=== PATIENT | female | born 1985 | race Caucasian/White ===

== ENCOUNTER → 2019-02-14 15:28 | Outpatient (CLI) | payer OTHER, SELFPAY ==
[2019-02-14 16:48] LABS: Homocysteine 7.6 umol/L (3.2-10.7)
[2019-02-17 17:14] LABS: ANTINUCLEAR ANTIBODIES DIRECT Negative (Negative)
[2019-02-24 18:45] LABS: Dilute Prothrombin Time (dPT) 52.2 sec (0.0-55.0); PTT-LA 57.7 sec (0.0-51.9); PTT-LA Incub Mix 43.2 sec (0.0-48.9); PTT-LA Mix 36.5 sec (0.0-48.9); Protein C Antigen 91 % (60-150); Protein C, Functional 127 % (73-180); Thrombin Time 20.3 sec (0.0-23.0); dPT Confirm Ratio 1.28 Ratio (0.00-1.40)
[2019-02-25 16:27] LABS: Antithrombin 3 Function 83 % (75-135); Beta-2-Glycoprotein I IgA <9 (0-25); Beta-2-Glycoprotein I IgG <9 (0-20); Beta-2-Glycoprotein I IgM <9 (0-32); Protein S, Free 79 % (57-157); Protein S, Funtional 108 % (63-140); Protein S, Total 96 % (60-150)
== END ==
DX: I26.99 Other pulmonary embolism without acute cor pulmonale (principal)
CPT/HCPCS: 36415; 81291; 83090; 85300; 85302; 85303; 85305; 85306; 86038; 86140; 86146

== ENCOUNTER 2019-06-01 09:48 | Emergency (ER) | payer OTHER, SELFPAY ==
[2019-03-18 14:11] VITALS: BMI 36.8
[2019-06-01 09:49] VITALS: BP 161/94; PULSE 75; RESP 18; TEMP 36.6; O2SAT 98; BMI 37.7
[2019-06-01 09:53] VITALS: TEMP 36.6
--- NOTE | 2019-06-01 10:23 | ED.DCSUM_ITS ---
History of Present Illness Chief Complaint: Abscess Informant: Patient Onset: Days Current Severity: Mild Narrative: Patient presents with an abscess involving the left buttock area that rubbing against her right buttock she is had it for a few days, she was seen by her primary care office the other day Sunday and placed on amoxicillin she was told that if did not improve she should just go to emergency room and have it taken care of, she is on Xarelto related to prior PEs she took her Xarelto dose today she has no other complaints, she has no history of MRSA skin infections no fever cough chest pain or abdominal pain her other health history is been unremarkable and she has no complaints other than the tender area as above Past Medical History - Allergies and Home Meds Allergies/Adverse Reactions: Allergies No Known Allergies Allergy (Verified 06/01/19 09:52) Primary Care Physician: Gypsy Marsh,Out of [Primary Care Provider] - Past Medical History: - - Viral pulmonary embolism currently on Xarelto no history of MRSA skin infection or diabetes Smoking Status: Never smoker Review of Systems General: Reports: - - Left buttock area only. Denies: Chills, Fever, Sweats Eyes: Denies: Visual changes - bilaterally, Diplopia ENT: Denies: Rhinorrhea, Sore throat Cardiovascular: Denies: Chest pain, Palpitations Respiratory: Denies: Dyspnea, Cough, Dyspnea on exertion Gastrointestinal: Denies: Abdominal pain, Nausea, Vomiting, Diarrhea, Melena, Hematochezia Genitourinary: Denies: Dysuria, Hematuria, Frequency Musculoskeletal: Denies: Back pain, Extremity Pain Skin: Denies: Rash, Wounds Neurological: Denies: Headache, Weakness, Numbness Physical Exam Vital Signs/Narrative: Vital Signs Temp Pulse Resp BP Pulse Ox 06/01/19 09:53 98 F 06/01/19 09:49 98 F 75 18 161/94 H 98 General: Well nourished, Well developed, No Acute Distress Head: Normocephalic, Atraumatic Eyes: Perrl, EOMI ENT: Moist mucous membranes, No rhinorrhea Neck: Supple, Nontender Cardiovascular: Regular rate, Regular rhythm, No murmurs Respiratory: No distress, CTA bilaterally, Chest nontender Abdomen: Soft, Nontender, Nondistended, Normal bowel sounds Back: Nontender, Normal Inspection Extremities: Nontender, No edema Skin: Normal color, No rash, - - Is an area to the left buttock area examined with nurse cashier courtesy booth is about 1 cm circular it is slightly tender there is no crepitance or warmth it certainly could represent an early abscess, it is clearly rubbing against the right buttock with an element of friction the perineum is otherwise unremarkable without no signs of deep-seated infection crepitance subcu air she has full range of motion of her extremities and the distal lower extremity exams are unremarkable Neurological: Alert, Oriented x3, Cranial nerves II-XII grossly intact, Normal Strength, Normal Sensation Psychological: Normal affect, Normal Mood Diagnostic/Tx/Re-eval - Medical Decision Making I had a long conversation with the patient I explained to her current Xarelto use, and she did take a dose today, would increase her risk of complications such as severe significant bleeding and it would be safer and best to have her hold the Xarelto for a day or 2 and then have this done as an outpatient and not through the emergency department, I spoke with Dr. Salazar to surgery on-call, the plan is to have her hold her Xarelto she will be seen in the office on Sunday we will have her continue the amoxicillin add Bactrim and she will be further assessed for possible I&D when she seen on Sunday in the office patient understands and agrees and will return for change in symptoms Home stable Left buttock abscess, history of PE currently on Xarelto ED Disposition - Plan for ED Patient: Diagnosis: Abscess Instructions: ABSCESS, Antiobiotic Treatment Only Prescriptions: Smz/Tmp Ds [Bactrim Ds] 1 tab PO BID #14 tab Prescription Printed Referrals: [facility] Doctor,Out of [Primary Care Provider] - Vinicio Dobbins MD [STAFF PHYSICIAN] - Additional Instructions: Hold your Xarelto until seen by surgery on Sunday, Call the surgeon's office Sunday to be seen Sunday for possible drainage of abscess return for change in symptoms
[2019-06-01 10:25] VITALS: BP 142/91; PULSE 70; RESP 18; O2SAT 98
== END 2019-06-01 10:38 | disposition home or self-care (01) ==
PROVIDERS: Emergency Provider Emergency Medicine
DX: L02.31 Cutaneous abscess of buttock (principal); Z86.711 Personal history of pulmonary embolism; Z79.01 Long term (current) use of anticoagulants
CPT/HCPCS: 99282

== ENCOUNTER → 2019-06-02 17:07 | Outpatient (CLI) | payer OTHER, SELFPAY ==
[2019-06-02 16:18] VITALS: BMI 37.7
== END ==
PROVIDERS: Referring Provider Surgery; Visit Provider Surgery
DX: K61.0 Anal abscess (principal)
CPT/HCPCS: 87070; 87205

== ENCOUNTER → 2019-08-12 15:51 | Outpatient (CLI) | payer OTHER, SELFPAY ==
[2019-06-02 16:18] VITALS: BMI 37.7
--- NOTE | 2019-08-12 15:54 | CT_ITS ---
STUDY: CTA CHEST REASON FOR EXAM: Female, 34 years old. History of pulmonary embolus in the past. Genetic mutation. RADIATION DOSAGE (If Supplied By Facility): CTDIvol = ( 9.65 ) mGy, DLP = ( 473.12 ) mGycm TECHNIQUE: The examination was performed with the intravenous administration of 100ML ISOVUE 370. Post-processing of the angiographic images was performed, with multiplanar reformation and 3D reconstruction. Individualized dose optimization techniques were used for this CT. COMPARISON: None. FINDINGS: Normal enhancement of the main pulmonary artery and right and left pulmonary arteries. Normal enhancement of the bilateral peripheral pulmonary arteries. There is no demonstrated pulmonary embolism. Normal thoracic aorta and visualized great vessels. There is no demonstrated aortic dissection. Normal heart and pericardium. Normal mediastinum. Normal hilar regions. Normal visualized trachea and bronchi. The lungs are well expanded. Normal pulmonary parenchyma. Normal pleura. Normal chest wall structures. Normal osseous structures. Surgical clips in the gallbladder fossa. CT/CTA Chest W/WO Contrast IMPRESSION: Normal CTA chest examination, without a demonstrated pulmonary embolism or arterial dissection. Electronically Signed: Ramses Morales MD at 4:46 EST , Service support ,
== END ==
DX: I26.99 Other pulmonary embolism without acute cor pulmonale (principal)
CPT/HCPCS: 71275; Q9967

== ENCOUNTER → 2019-10-27 15:24 | Outpatient (CLI) | payer OTHER, SELFPAY ==
[2019-06-02 16:18] VITALS: BMI 37.7
[2019-10-27 17:59] LABS: hCG Titer Quant., Serum 16406 mIU/mL (1-3)
== END ==
PROVIDERS: PCP Family Medicine
DX: N91.2 Amenorrhea, unspecified (principal)
CPT/HCPCS: 36415; 84702

== ENCOUNTER → 2019-10-28 16:35 | Outpatient (CLI) | payer OTHER, SELFPAY ==
[2019-06-02 16:18] VITALS: BMI 37.7
--- NOTE | 2019-10-28 16:37 | US_ITS ---
STUDY: FIRST TRIMESTER OBSTETRICAL ULTRASOUND REASON FOR EXAM: Female, 34 years old LIGHT BLEEDING HX MISCARRIAGE LMP: September 07, 2019 TECHNIQUE: Transvaginal TECHNICAL QUALITY: Adequate. PRIOR ULTRASOUND: None. FINDINGS: There is visualization of a single gestational sac in a normal intrauterine position. The mean sac diameter (MSD) measures 1.72 cm, indicating an estimated gestational age (EGA) of 6 weeks, 4 days. The gestational sac shape is within normal limits. There is a visualized yolk sac. The yolk sac measures 0.28 cm. The placenta is non-visualized. There is visualization of a live embryo. The crown-rump length (CRL) measures 0.67 cm, indicating an estimated gestational age (EGA) of 6 weeks, 4 days. There is demonstrated cardiac activity with a heart rate of 134 bpm. The estimated gestation age (EGA) by LMP is 7 weeks, 2 days. The estimated date of delivery (SKYLA) by LMP is June 13, 2020. The estimated gestation age (EGA) by US is 6 weeks, 4 days. The estimated date of delivery (SKYLA) by US is June 18, 2020. The uterus measures 8 cm x 5.9 cm x 4.4 cm. There is no demonstrated uterine fibroid. The cervix is closed. There is evidence of a 1.1 cm x 0.5 cm x 0.4 cm subchorionic bleed. The right ovary measures 2.4 cm x 1.7 cm by 1.1 cm. There is no right ovarian cyst. There is no visualized right adnexal mass or complex lesion. The left ovary measures 2.2 cm x 2 cm x 1.9 cm. There is a 1.9 cm x 1.5 cm x 1.6 cm follicle. There is no visualized left adnexal mass or complex lesion. There is no fluid in the cul de sac. US/Init OB < 14Wks US IMPRESSION: Single live intrauterine gestation with a mean gestational age of 6 weeks and 4 days. Small subchorionic bleed. Small left ovarian follicle. Electronically Signed: Ian Cox, at 15:10 EST , Service support ,
== END ==
PROVIDERS: PCP Family Medicine; Referring Provider Obstetrics & Gynecology; Visit Provider Obstetrics & Gynecology
DX: O46.90 Antepartum hemorrhage, unspecified, unspecified trimester (principal); Z3A.00 Weeks of gestation of pregnancy not specified
CPT/HCPCS: 76801

== ENCOUNTER → 2019-11-03 16:48 | Outpatient (CLI) | payer OTHER, SELFPAY ==
[2019-06-02 16:18] VITALS: BMI 37.7
[2019-11-03 17:15] LABS: Absolute Lymphocyte Count 3.68 X10^3/uL (0.83-4.51); Basophil# 0.07 X10^3/uL; Basophil% 0.4 % (0-1); Eosinophil# 0.06 X10^3/uL; Eosinophils% 0.4 % (0-5); Hematocrit 37.4 % (37-47); Hemoglobin 12.2 g/dL (12.0-15.0); Lymphocyte # 3.68 X10^3/ul (4.0); Lymphocyte % 23.6 % (19-41); Mean Corp Hgb Conc 32.6 g/dL (32-36); Mean Corpuscular Hgb 29.5 pg (27.0-32.0); Mean Corpuscular Volume 90.3 fL (81-99); Mean Platelet Vol. 8.8 fl (6.2-12.0); Monocyte# 0.72 X10^3/uL; Monocyte% 4.6 % (0-10); NRBC Flagged by Analyzer 0 % (0-5); Neutrophil # 10.98 X10^3/uL (2.7-7.7); Neutrophil % 70.4 % (47-70); Platelet Count 359 K/mm3 (150-450); RBC Distribution Width CV 12.2 % (11.6-14.6); RBC Distribution Width SD 39.8 fl (35.1-43.9); Red Blood Count 4.14 M/mm3 (4.2-5.4); White Blood Count 15.6 K/mm3 (4.4-11.0)
[2019-11-03 17:57] LABS: ALB/GLOB Ratio 1.1 RATIO (0.9-2.4); AST(SGOT) 12 U/L (15-37); Alanine Aminotransfer ALT/SGPT 17 U/L (13-56); Albumin, Serum 3.8 g/dL (3.2-5.0); Alkaline Phosphatase 64 U/L (45-117); Anion Gap 8 (5-15); BUN 9 mg/dL (7-18); BUN/Creat Ratio 12.9 RATIO (10-20); Calcium,Total 8.7 mg/dL (8.5-10.1); Chloride 105 mmol/L (98-107); Cholesterol 184 mg/dL (200); EST Glomerular Filtration Rate 103 mL/min (>60); Est Glom Filt Rate - Afr Amer 125 mL/min (>60); Globulin 3.6 g/dL (2.2-4.2); Glucose 77 mg/dL (74-106); High Density Lipoprotein 51 mg/dL; Potassium 3.5 mmol/L (3.5-5.1); Protein, Total 7.4 g/dL (6.4-8.2); Sodium Level 138 mmol/L (136-145); Thyroid Stim Hormone (TSH) 1.67 uIU/mL (0.358-3.74); Triglycerides 129 mg/dL; Very Low Density Lipoprotein 26 mg/dL (5-40)
== END ==
PROVIDERS: PCP Family Medicine; Referring Provider Family Medicine; Visit Provider Family Medicine
DX: Z00.00 Encounter for general adult medical examination without abnormal findings (principal)
CPT/HCPCS: 36415; 80053; 80061; 84443; 85025

== ENCOUNTER → 2019-11-06 15:37 | Outpatient (CLI) | payer OTHER, SELFPAY ==
[2019-11-06 11:59] VITALS: BMI 37.7
[2019-11-06 16:07] LABS: Protein:Creat Ratio 61 mg/g CRE (0-200)
[2019-11-06 16:15] LABS: Amphetamine Urine VISTA NEGATIVE (<1000 ng/mL); Barbiturate Urine VISTA NEGATIVE (< 200 ng/mL); Benzodiazepine Urine VISTA NEGATIVE (< 200 ng/mL); Cocaine Urine VISTA NEGATIVE (< 300 ng/mL); Ecstacy Urine VISTA NEGATIVE (< 500 ng/mL); Methadone Urine VISTA NEGATIVE (< 300 ng/mL); PCP Urine VISTA NEGATIVE (< 25 ng/mL); THC Urine VISTA NEGATIVE (< 50 ng/mL); Vista UDS pH Range 6
[2019-11-06 17:46] LABS: Chlamydia Trachomatis by PCR Negative (Negative); Neisserai gonorrhoeae by PCR Negative (Negative); Probe Check PASS; Sample Adequacy Control PASS; Specimen Processing Control PASS
[2019-11-11 11:57] LABS: HPV APTIMA, High Risk Negative (Negative)
== END ==
PROVIDERS: Obstetrics & Gynecology; PCP Family Medicine; Referring Provider Nurse Practitioner Women's Health; Visit Provider Nurse Practitioner Women's Health
DX: Z12.4 Encounter for screening for malignant neoplasm of cervix (principal); O09.90 Supervision of high risk pregnancy, unspecified, unspecified trimester; O99.210 Obesity complicating pregnancy, unspecified trimester; O09.299 Supervision of pregnancy with other poor reproductive or obstetric history, unspecified trimester; Z3A.00 Weeks of gestation of pregnancy not specified
CPT/HCPCS: 80307; 82570; 84156; 87086; 87088; 87491; 87591; 87624; 88175; G0145

== ENCOUNTER → 2019-11-10 08:09 | Outpatient (CLI) | payer OTHER, SELFPAY ==
[2019-11-06 11:59] VITALS: BMI 37.7
[2019-11-10 08:29] LABS: Absolute Neutrophil Count 8.3 X10^3/uL (2.0-7.7); Basophil# 0.07 X10^3/uL; Basophil% 0.6 % (0-1); Eosinophils% 0.8 % (0-5); Hematocrit 38.4 % (37-47); Hemoglobin 12.6 g/dL (12.0-15.0); Lymphocyte % 25.4 % (19-41); Mean Corp Hgb Conc 32.8 g/dL (32-36); Mean Corpuscular Hgb 29.6 pg (27.0-32.0); Mean Corpuscular Volume 90.1 fL (81-99); Mean Platelet Vol. 8.9 fl (6.2-12.0); Monocyte# 0.61 X10^3/uL; NRBC Flagged by Analyzer 0 % (0-5); Neutrophil % 67.9 % (47-70); Platelet Count 344 K/mm3 (150-450); RBC Distribution Width CV 12.3 % (11.6-14.6); RBC Distribution Width SD 40.3 fl (35.1-43.9); Red Blood Count 4.26 M/mm3 (4.2-5.4); White Blood Count 12.2 K/mm3 (4.4-11.0)
== END ==
PROVIDERS: PCP Family Medicine; Referring Provider Family Medicine; Visit Provider Family Medicine
DX: D72.829 Elevated white blood cell count, unspecified (principal)
CPT/HCPCS: 36415; 85025

== ENCOUNTER → 2019-11-17 10:30 | Outpatient (CLI) | payer OTHER, SELFPAY ==
[2019-11-06 11:59] VITALS: BMI 37.7
[2019-11-17 11:12] LABS: Absolute Lymphocyte Count 2.81 X10^3/uL (0.83-4.51); Absolute Neutrophil Count 8.7 X10^3/uL (2.0-7.7); Basophil# 0.05 X10^3/uL; Basophil% 0.4 % (0-1); Eosinophil# 0.12 X10^3/uL; Hemoglobin 12.7 g/dL (12.0-15.0); Lymphocyte # 2.81 X10^3/ul (4.0); Lymphocyte % 22.6 % (19-41); Mean Corp Hgb Conc 32.6 g/dL (32-36); Mean Corpuscular Hgb 29.7 pg (27.0-32.0); Mean Corpuscular Volume 91.1 fL (81-99); Mean Platelet Vol. 9.1 fl (6.2-12.0); Monocyte# 0.63 X10^3/uL; Monocyte% 5.1 % (0-10); NRBC Flagged by Analyzer 0 % (0-5); Neutrophil # 8.74 X10^3/uL (2.7-7.7); Neutrophil % 70.4 % (47-70); Platelet Count 316 K/mm3 (150-450); RBC Distribution Width CV 12.1 % (11.6-14.6); RBC Distribution Width SD 39.9 fl (35.1-43.9); Red Blood Count 4.28 M/mm3 (4.2-5.4); White Blood Count 12.4 K/mm3 (4.4-11.0)
[2019-11-17 11:33] LABS: ALB/GLOB Ratio 0.9 RATIO (0.9-2.4); AST(SGOT) 7 U/L (15-37); Alanine Aminotransfer ALT/SGPT 15 U/L (13-56); Albumin, Serum 3.4 g/dL (3.2-5.0); Alkaline Phosphatase 62 U/L (45-117); Anion Gap 8 (5-15); BUN 6 mg/dL (7-18); BUN/Creat Ratio 9.3 RATIO (10-20); Calcium,Total 8.5 mg/dL (8.5-10.1); Chloride 106 mmol/L (98-107); Creatinine, Serum 0.65 mg/dL (0.55-1.02); EST Glomerular Filtration Rate 112 mL/min (>60); Est Glom Filt Rate - Afr Amer 136 mL/min (>60); Globulin 3.6 g/dL (2.2-4.2); Glucose 91 mg/dL (74-106); Glucose Challenge Gest 1H 50g 91 mg/dL (70-140); Potassium 3.5 mmol/L (3.5-5.1); Sodium Level 139 mmol/L (136-145)
[2019-11-17 12:36] LABS: HIV - WCH Non-Reactive (Nonreactive); Hepatitis B Surface Antigen Non-Reactive (Nonreactive); Hepatitis C Antibody Non-Reactive (Nonreactive); Rubella IgG 142.6 IU/mL
[2019-11-21 04:37] LABS: Rapid Plasmin Reagin (RPR) NONREACTIVE (NONREACTIVE)
== END ==
PROVIDERS: PCP Family Medicine; Referring Provider Obstetrics & Gynecology; Visit Provider Obstetrics & Gynecology
DX: O09.90 Supervision of high risk pregnancy, unspecified, unspecified trimester (principal); O09.299 Supervision of pregnancy with other poor reproductive or obstetric history, unspecified trimester; O23.40 Unspecified infection of urinary tract in pregnancy, unspecified trimester; O99.210 Obesity complicating pregnancy, unspecified trimester; Z3A.00 Weeks of gestation of pregnancy not specified
CPT/HCPCS: 36415; 80053; 82950; 85025; 86592; 86703; 86762; 86803; 86850; 86900; 86901; 87086; 87088; 87340

== ENCOUNTER → 2019-12-04 09:52 | Outpatient (CLI) | payer OTHER, SELFPAY ==
[2019-12-04 09:10] VITALS: BMI 37.7
== END ==
PROVIDERS: PCP Family Medicine; Referring Provider Obstetrics & Gynecology; Visit Provider Obstetrics & Gynecology
DX: Z34.81 Encounter for supervision of other normal pregnancy, first trimester (principal)
CPT/HCPCS: 36415

== ENCOUNTER → 2020-01-20 15:10 | Outpatient (CLI) | payer OTHER, SELFPAY ==
[2019-12-04 09:10] VITALS: BMI 37.7
[2019-12-29 15:57] VITALS: BMI 37.7
--- NOTE | 2020-01-20 15:10 | US_ITS ---
STUDY: SECOND AND THIRD TRIMESTER OBSTETRICAL ULTRASOUND REASON FOR EXAM: Female, 34 years old. Anatomy screening. LMP: September 07, 2019. TECHNIQUE: Transabdominal TECHNICAL QUALITY: Adequate. PRIOR ULTRASOUND: October 28, 2019. FINDINGS: There is a single intrauterine fetus. The fetus is in a variable presentation. There is demonstrated cardiac activity with a heart rate of 143 bpm. There is a normal amniotic fluid volume. The largest amniotic fluid pocket measures 5.1 cm. . The placenta is posterior in location and is not low lying. There are Grade 0 placental changes. The cervix measures 3.4 cm in length. The adnexal regions are not visualized. BIOMETRY: BPD: 4.35 cm: 19 weeks, 3 days HC: 16.37 cm: 19 weeks, 1 days AC: 14.26 cm: 19 weeks, 5 days FL: 3.03 cm: 19 weeks, 3 days CI: 77 FL/BPD: 70 FL/HC: FL/AC: 21 HC/AC: 1.15 age by current US: 19 weeks, 3 days. SKYLA by current US: June 12, 2020. Estimated weight: 293 grams, +/- 43 grams, 55 %. age by prior US: 18 weeks, 4 days. SKYLA by prior US: June 18, 2020. Age by LMP: 19 weeks, 2 days. SKYLA by LMP: June 13, 2020. ANATOMY: Gender: Female Cranium: Normal lateral ventricles. Normal choroid plexus. Normal cerebellum. Normal cisterna magna. Normal face, nose and lips. Chest: Normal 4-chamber heart. Abdomen/Pelvis: Normal diaphragm. Normal stomach. Normal abdominal wall. Normal cord insertion. Normal 3 vessel cord. Normal kidneys. Normal bladder. Spine: Normal cervical spine. Normal thoracic spine. Normal lumbar spine. Normal sacrum. Extremities: Normal bilateral upper extremities. Normal bilateral lower extremities. US/OB Anatomy Scan IMPRESSION: 1. Live single intrauterine at 19 weeks, 3 days. SKYLA is June 12, 2020. There is adequate interval growth since prior ultrasound. 2. EFW of 293 g. 3. Adequate amniotic fluid. 4. Posterior grade 0 placenta. 5. Variable presentation. 6. No visualized anatomic abnormality. Electronically Signed: Sid Valencia DO at 23:42 EDT Tel [phone], Service support ,
== END ==
PROVIDERS: PCP Family Medicine; Referring Provider Nurse Practitioner Women's Health; Visit Provider Nurse Practitioner Women's Health
DX: O09.90 Supervision of high risk pregnancy, unspecified, unspecified trimester (principal)
CPT/HCPCS: 76805

== ENCOUNTER → 2020-03-02 17:36 | Outpatient (CLI) | payer OTHER, SELFPAY ==
[2020-02-23 15:45] VITALS: BMI 37.7
== END ==
PROVIDERS: PCP Family Medicine; Referring Provider Family Medicine; Visit Provider Family Medicine
DX: R05 Cough (principal); R50.9 Fever, unspecified
CPT/HCPCS: 87635; G2023; U0003

== ENCOUNTER → 2020-03-24 08:09 | Outpatient (CLI) | payer OTHER, SELFPAY ==
[2020-02-23 15:45] VITALS: BMI 37.7
[2020-03-24 08:41] LABS: Absolute Lymphocyte Count 2.56 X10^3/uL (0.83-4.51); Absolute Neutrophil Count 11.6 X10^3/uL (2.0-7.7); Basophil# 0.05 X10^3/uL; Basophil% 0.3 % (0-1); Eosinophil# 0.12 X10^3/uL; Eosinophils% 0.8 % (0-5); Hematocrit 31.5 % (37-47); Hemoglobin 10.2 g/dL (12.0-15.0); Lymphocyte # 2.56 X10^3/ul (4.0); Lymphocyte % 16.9 % (19-41); Mean Corp Hgb Conc 32.4 g/dL (32-36); Mean Corpuscular Hgb 30.5 pg (27.0-32.0); Mean Corpuscular Volume 94.3 fL (81-99); Mean Platelet Vol. 9.8 fl (6.2-12.0); Monocyte# 0.66 X10^3/uL; Monocyte% 4.4 % (0-10); NRBC Flagged by Analyzer 0 % (0-5); Neutrophil # 11.64 X10^3/uL (2.7-7.7); Neutrophil % 76.7 % (47-70); Platelet Count 314 K/mm3 (150-450); RBC Distribution Width CV 12.9 % (11.6-14.6); RBC Distribution Width SD 43.7 fl (35.1-43.9); Red Blood Count 3.34 M/mm3 (4.2-5.4); White Blood Count 15.2 K/mm3 (4.4-11.0)
[2020-03-24 08:57] LABS: Glucose Challenge Gest 1H 50g 135 mg/dL (70-140)
--- NOTE | 2020-03-24 13:03 | VDLE_ITS ---
Reason For Study: Lt calf pain RIGHT LEFT CFV is compressible, spontaneous, phasic, GSV is normal. competent and demonstrates normal CFV is compressible, spontaneous, phasic, augmentation. competent, and demonstrates normal Procedure augmentation. Exam performed in department. FV is compressible, spontaneous, phasic, A preliminary report was called and/or faxed competent and demonstrates normal to Dr. Gonzalez. augmentation. POP V is compressible, spontaneous, phasic, competent and demonstrates normal augmentation. T/P Trunk is compressible. PTV is compressible. LT PerV is compressible. Interpretation Summary Deep veins of the left lower extremity are patent and compressible segmentally. There is no evidence of left lower extremity deep vein thrombosis. Valvular competence appears intact within the proximal deep venous system on the left . The left great saphenous vein appears patent and compressible segmentally. Ordering Physician: Donya Gonzalez Referring Physician: Sommer Flynn Performed By: Estelle Mora, KRISTAN, RVT
== END ==
LOC: LAB 08:11 → CVS 13:02
PROVIDERS: PCP Family Medicine; Referring Provider Obstetrics & Gynecology; Visit Provider Obstetrics & Gynecology
DX: M79.662 Pain in left lower leg (principal); O09.90 Supervision of high risk pregnancy, unspecified, unspecified trimester; Z3A.00 Weeks of gestation of pregnancy not specified
CPT/HCPCS: 36415; 82950; 85025; 93971

== ENCOUNTER → 2020-03-25 06:46 | Outpatient (CLI) | payer OTHER, SELFPAY ==
[2020-03-24 08:52] VITALS: BMI 37.7
[2020-03-25 08:33] LABS: Glucose GTT-Gestation. Fasting 90 mg/dL (<105)
[2020-03-25 09:00] LABS: Glucose GTT-Gestational 1 Hr 147 mg/dL (<190)
[2020-03-25 10:04] LABS: Glucose GTT-Gestational 2 Hr 114 mg/dL (<165)
[2020-03-25 12:03] LABS: Glucose GTT-Gestational 3 Hr 68 L (<145)
== END ==
PROVIDERS: PCP Family Medicine; Referring Provider Obstetrics & Gynecology; Visit Provider Obstetrics & Gynecology
DX: R73.09 Other abnormal glucose (principal)
CPT/HCPCS: 36415; 82951; 82952

== ENCOUNTER 2020-04-02 10:30 | Outpatient (CLI) | payer OTHER, SELFPAY ==
[2020-04-02] VITALS (9 sets, daily range): BP systolic 118–150; BP diastolic 58–78; PULSE 62–69; TEMP 36.4; O2SAT 97; BMI 37.7; BMI 36.3
[2020-04-02] MEDS: Lactated Ringers 1,000 ML 999 ML IV (11:06)
[2020-04-02 11:12] LABS: Protein:Creat Ratio 143 mg/g CRE (0-200)
[2020-04-02 11:17] LABS: Hematocrit 31.8 % (37-47); Hemoglobin 10.7 g/dL (12.0-15.0); Mean Corp Hgb Conc 33.6 g/dL (32-36); Mean Corpuscular Hgb 30.7 pg (27.0-32.0); Mean Corpuscular Volume 91.1 fL (81-99); Mean Platelet Vol. 9.8 fl (6.2-12.0); Platelet Count 323 K/mm3 (150-450); RBC Distribution Width CV 13.2 % (11.6-14.6); RBC Distribution Width SD 42.3 fl (35.1-43.9); Red Blood Count 3.49 M/mm3 (4.2-5.4); White Blood Count 13.5 K/mm3 (4.4-11.0)
[2020-04-02 11:34] LABS: Prothrombin Time (Protime)PT. 12.9 SECONDS (11.7-14.9)
[2020-04-02 11:35] LABS: Partial Thromboplast Time 26.6 Seconds (24.1-36.2)
[2020-04-02 11:40] LABS: AST(SGOT) 9 U/L (15-37); Alanine Aminotransfer ALT/SGPT 13 U/L (13-56); Creatinine, Serum 0.61 mg/dL (0.55-1.02); EST Glomerular Filtration Rate 119 mL/min (>60); Est Glom Filt Rate - Afr Amer 144 mL/min (>60); Estimated Creatinine Clearance 113.27 ml/min; Uric Acid 3.2 mg/dL (2.6-6.0)
[2020-04-02] MEDS: 0.9% Saline Lock 10 ML Syringe IV (12:11)
--- NOTE | 2020-04-02 13:06 | OB.TRI.HP_ITS ---
- Problem List (1) Iron (Fe) deficiency anemia Status: Acute (2) H/O pre-eclampsia in prior , currently Status: Acute Comment: Baby ASA; baseline labs nl. (3) Elevated blood pressure affecting in third trimester, antepartum Status: Acute History of Present Illness Date of Service: 04/02/20 Was patient seen by the physician?: Yes Reason For Visit: Elevated BP Date of Service: 04/02/20 Final SKYLA: 06/13/20 Final SKYLA Source: LMP Gestational age: 29 Weeks and 5 Days History of Present Illness: 34yo presents for evaluation of elevated blood pressures and feeling unwell. She was seen in the office earlier this morning and had a severe range blood pressure of 164/102. Reports intermittent blurring of her vision. Reports occasional headaches, but none currently. Denies RUQ/epigastric pain, chest pain, SOB. Denies contractions, LOF, VB, DFM. Allergies No Known Allergies Allergy (Verified 04/02/20 11:06) - Pertinent Past Medical History Medical History: Past Medical History (Last Reviewed 04/02/20 @ 10:25 by Kalpana Reeves) H/O pre-eclampsia in prior , currently (Acute) Baby ASA; baseline labs nl. Bilateral pulmonary embolism (Acute) prophylactic lovenox 40 mg BID this and plan 6 weeks PP. History of miscarriage, currently (Acute) Baby ASA Exposure to blood Perianal abscess Puncture wound of thumb, left No significant past medical history (Resolved) DVT (deep venous thrombosis) (Inactive) 2018 Surgical History: Past Surgical History (Last Reviewed 04/02/20 @ 10:25 by Kalpana Reeves) History of laparoscopic cholecystectomy Laboratory Studies: Laboratory Tests 04/02/20 04/02/20 04/02/20 Range/Units 11:05 11:05 11:05 WBC 13.5 H (4.4-11.0) K/mm3 RBC 3.49 L (4.2-5.4) M/mm3 Hgb 10.7 L (12.0-15.0) g/dL Hct 31.8 L (37-47) % MCV 91.1 (81-99) fL MCH 30.7 (27.0-32.0) pg MCHC 33.6 (32-36) g/dL RDW Std Deviation 42.3 (35.1-43.9) fl RDW Coeff of Macie 13.2 (11.6-14.6) % Plt Count 323 (150-450) K/mm3 MPV 9.8 (6.2-12.0) fl PT 12.9 (11.7-14.9) SECONDS INR 1.0 APTT 26.6 (24.1-36.2) Seconds Creatinine 0.61 (0.55-1.02) mg/dL Estim Creat Clear Calc 113.27 ml/min Est GFR (MDRD) Af Amer 144 (>60) mL/min Est GFR (MDRD) Non-Af 119 (>60) mL/min Uric Acid 3.2 (2.6-6.0) mg/dL AST 9 L (15-37) U/L ALT 13 (13-56) U/L U Random Total Protein (<11.9) mg/dL Urine Creatinine (NO RANGE EST.) mg/dL Protein/Creatinin Ratio (0-200) mg/g CRE 04/02/20 Range/Units 10:58 WBC (4.4-11.0) K/mm3 RBC (4.2-5.4) M/mm3 Hgb (12.0-15.0) g/dL Hct (37-47) % MCV (81-99) fL MCH (27.0-32.0) pg MCHC (32-36) g/dL RDW Std Deviation (35.1-43.9) fl RDW Coeff of Macie (11.6-14.6) % Plt Count (150-450) K/mm3 MPV (6.2-12.0) fl PT (11.7-14.9) SECONDS INR APTT (24.1-36.2) Seconds Creatinine (0.55-1.02) mg/dL Estim Creat Clear Calc ml/min Est GFR (MDRD) Af Amer (>60) mL/min Est GFR (MDRD) Non-Af (>60) mL/min Uric Acid (2.6-6.0) mg/dL AST (15-37) U/L ALT (13-56) U/L U Random Total Protein 22.0 H (<11.9) mg/dL Urine Creatinine 154.00 (NO RANGE EST.) mg/dL Protein/Creatinin Ratio 143 (0-200) mg/g CRE Review of Systems Constitutional: Reports: Fatigue Eyes: Reports: Blurred vision, Vision Change HEENT: Denies: Head Aches Cardiovascular: Reports: Light Headedness. Denies: Chest Pain, Chest Pressure, Edema Respiratory: Denies: Shortness of Breath Gastrointestinal: Reports: Nausea. Denies: Abdominal Pain, Vomiting Gynecological: Denies: Vaginal bleeding, Vaginal discharge Physical Exam Vitals: Vital Signs Temp Pulse BP Pulse Ox 97.6 F L 62 118/67 97 04/02/20 11:01 04/02/20 12:21 04/02/20 12:21 04/02/20 11:01 General: Alert, Oriented x3, No apparent distress, Well developed, Well nourished HEENT: Atraumatic, PERRLA, EOMI, Normocephalic Cardiovascular: Regular rate Lungs: Normal air movement Abdomen: Soft, Non Tender, Non-Distended, Gravid, Appropriate for Gestational Age Extremities:: No edema, Other - no clonus Neurological: Cranial nerves II-XII grossly intact, Neuro grossly intact NST - FHR Rate Baby A Baseline: 125 Variability:: Moderate Accelerations:: 15 x 15 Decelerations:: None NST Reactive:: Yes FHR Category:: Category I Uterine Activity:: none Impression/Plan 34yo presents for evaluation of elevated BPs - BPs normotensive in triage aside from isolated mild range BP - Mild visual changes, but otherwise asymptomatic and changes have been ongoing throughout - PreE labs normal - Has home BP cuff. Counseled to monitor BPs and symptoms at home. Counseled to call workplace relations adviser for BPs >160/110 or symptoms of PreE including chest pain, headaches, blurred vision, RUQ/epigastric pain. All questions answered. - Will have patient follow up in office on Sunday - appointment scheduled Multi Select Codes - Visit Charges Office Visit/Consults: 11533 OV L3 Est - Urinary/Genital Urinary/Genital CPT Codes: 12652-00 non-stress test Interp
== END 2020-04-02 12:35 | disposition home or self-care (01) ==
LOC: WPOUT 10:49 → OBT 10:50
PROVIDERS: Obstetrics & Gynecology; PCP Family Medicine; Visit Provider Obstetrics & Gynecology
DX: O26.893 Other specified pregnancy related conditions, third trimester (principal); R03.0 Elevated blood-pressure reading, without diagnosis of hypertension; Z3A.29 29 weeks gestation of pregnancy; H53.8 Other visual disturbances; R51 Headache; Z90.49 Acquired absence of other specified parts of digestive tract; Z86.711 Personal history of pulmonary embolism
CPT/HCPCS: 96360; 36415; 59025; 59050; 82565; 82570; 84156; 84450; 84460; 84550; 85027; 85610; 85730; 99218; J7120; G0378

== ENCOUNTER → 2020-04-05 11:16 | Outpatient (CLI) | payer OTHER, SELFPAY ==
[2020-04-05 10:36] VITALS: BMI 36.3
[2020-04-05 12:24] LABS: Protein, Urine (Random) 11.6 mg/dL (<11.9); Protein:Creat Ratio 142 mg/g CRE (0-200)
[2020-04-05 12:36] LABS: Absolute Lymphocyte Count 3.12 X10^3/uL (0.83-4.51); Absolute Neutrophil Count 12.7 X10^3/uL (2.0-7.7); Basophil# 0.06 X10^3/uL; Basophil% 0.4 % (0-1); Eosinophil# 0.06 X10^3/uL; Eosinophils% 0.4 % (0-5); Hematocrit 33.3 % (37-47); Hemoglobin 10.6 g/dL (12.0-15.0); Lymphocyte # 3.12 X10^3/ul (4.0); Lymphocyte % 18.5 % (19-41); Mean Corp Hgb Conc 31.8 g/dL (32-36); Mean Corpuscular Hgb 29.9 pg (27.0-32.0); Mean Corpuscular Volume 93.8 fL (81-99); Mean Platelet Vol. 10.1 fl (6.2-12.0); Monocyte# 0.82 X10^3/uL; Monocyte% 4.9 % (0-10); NRBC Flagged by Analyzer 0 % (0-5); Neutrophil # 12.66 X10^3/uL (2.7-7.7); Platelet Count 339 K/mm3 (150-450); RBC Distribution Width CV 13.6 % (11.6-14.6); RBC Distribution Width SD 45.3 fl (35.1-43.9); Red Blood Count 3.55 M/mm3 (4.2-5.4); White Blood Count 16.9 K/mm3 (4.4-11.0)
[2020-04-05 12:53] LABS: ALB/GLOB Ratio 0.7 RATIO (0.9-2.4); AST(SGOT) 9 U/L (15-37); Alanine Aminotransfer ALT/SGPT 13 U/L (13-56); Albumin, Serum 2.8 g/dL (3.2-5.0); Alkaline Phosphatase 90 U/L (45-117); Anion Gap 8 (5-15); BUN 6 mg/dL (7-18); BUN/Creat Ratio 8.8 RATIO (10-20); Calcium,Total 9.2 mg/dL (8.5-10.1); Chloride 103 mmol/L (98-107); Creatinine, Serum 0.68 mg/dL (0.55-1.02); EST Glomerular Filtration Rate 105 mL/min (>60); Est Glom Filt Rate - Afr Amer 127 mL/min (>60); Glucose 69 mg/dL (74-106); Potassium 3.9 mmol/L (3.5-5.1); Protein, Total 6.8 g/dL (6.4-8.2); Sodium Level 135 mmol/L (136-145)
--- NOTE | 2020-04-05 15:49 | US_ITS ---
STUDY: OBSTETRICAL ULTRASOUND - BIOPHYSICAL PROFILE REASON FOR EXAM: Female, 34 years old. well-being LMP: Unknown. PRIOR ULTRASOUND: None. TECHNIQUE: Transabdominal ultrasound evaluation was performed. FINDINGS: There is a single intrauterine fetus. The fetus is in a cephalic presentation. There is demonstrated cardiac activity with a heart rate of 140 bpm. There is a normal amniotic fluid volume. The amniotic fluid index (SULEIMAN) is 13.7 cm. The placenta is fundal in location. BIOPHYSICAL PROFILE: Breathing Movements (FBM): 2 Gross Body Movements (GBM): 2 Tone (FT): 2 Amniotic Fluid Volume (AFV): 2 TOTAL SCORE: US/Biophysical Profile IMPRESSION: Normal biophysical profile of 04/03. Electronically Signed: Rubio Cohen, at 17:47 EDT Tel , Service support ,
--- NOTE | 2020-04-05 15:49 | US_ITS ---
STUDY: SECOND AND THIRD TRIMESTER OBSTETRICAL ULTRASOUND REASON FOR EXAM: Female, 34 years old GROWTH LMP: Unknown. TECHNIQUE: Transabdominal and Transvaginal TECHNICAL QUALITY: Adequate. PRIOR ULTRASOUND: None. FINDINGS: There is a single intrauterine fetus. The fetus is in a cephalic presentation. There is demonstrated cardiac activity with a heart rate of 140 bpm. There is a normal amniotic fluid volume. The largest amniotic fluid pocket measures 5.5 cm. The amniotic fluid index (SULEIMAN) is 16.9 cm. The placenta is fundal in location. There are Grade 3 placental changes. The cervix measures 3.5 in length. The cervix is closed. BIOMETRY: BPD: 7.74 cm: 31 weeks, 1 days HC: 28.69 cm: 31 weeks, 4 days AC: 26.16 cm: 30 weeks, 3 days FL: 5.7 cm: 30 weeks, 0 days age by current US: 30 weeks, 6 days. SKYLA by current US: 06/08/20. Estimated weight: 1557 grams, +/- 227 grams, 44 %. age by prior US: 30 weeks, 2 days. SKYLA by prior US: 06/12/20. Age by LMP: 30 weeks, 1 days. SKYLA by LMP: 06/13/20. US/OB Limited With Biometrics IMPRESSION: Single live intrauterine gestation at approximately 30 weeks and 6 days based on the current ultrasound. Electronically Signed: Rubio Noel, at 17:52 EDT Tel , Service support ,
== END ==
PROVIDERS: PCP Family Medicine; Referring Provider Obstetrics & Gynecology; Visit Provider Obstetrics & Gynecology
DX: O16.3 Unspecified maternal hypertension, third trimester (principal); Z3A.00 Weeks of gestation of pregnancy not specified
CPT/HCPCS: 36415; 76816; 76818; 80053; 82570; 84156; 85025

== ENCOUNTER → 2020-04-15 14:31 | Outpatient (CLI) | payer OTHER, SELFPAY ==
[2020-04-06 14:01] VITALS: BMI 36.3
[2020-04-14 12:27] VITALS: BMI 36.3
--- NOTE | 2020-04-15 14:43 | US_ITS ---
STUDY: SECOND AND THIRD TRIMESTER OBSTETRICAL ULTRASOUND - LIMITED REASON FOR EXAM: Female, 34 years old. Evaluate fluid PRIOR ULTRASOUND: 04/05/20 TECHNIQUE: Transabdominal ultrasound evaluation was performed. FINDINGS: There is a single intrauterine fetus. The fetus is in a cephalic presentation. There is demonstrated cardiac activity with a heart rate of 147 bpm. There is a normal amniotic fluid volume. The largest amniotic fluid pocket measures 7.25 cm. The amniotic fluid index (SULEIMAN) is 12.97 cm. The placenta is posterior in location and is not low lying. There are Grade 2 placental changes. The cervix measures 3.87 cm in length. The cervix is closed. US/OB Limited (No Biometrics) IMPRESSION: Normal amniotic fluid volume, SULEIMAN = 12.97. Electronically Signed: Rubio Cohen, at 17:35 EDT Tel , Service support ,
== END ==
PROVIDERS: PCP Family Medicine; Referring Provider Obstetrics & Gynecology; Visit Provider Obstetrics & Gynecology
DX: O09.90 Supervision of high risk pregnancy, unspecified, unspecified trimester (principal)
CPT/HCPCS: 76815

== ENCOUNTER → 2020-04-21 08:05 | Outpatient (CLI) | payer OTHER, SELFPAY ==
[2020-04-06 14:01] VITALS: BMI 36.3
[2020-04-14 12:27] VITALS: BMI 36.3
--- NOTE | 2020-04-21 08:05 | US_ITS ---
STUDY: SECOND AND THIRD TRIMESTER OBSTETRICAL ULTRASOUND - LIMITED REASON FOR EXAM: Female, 34 years old SULEIMAN LMP: JONEL 2019 PRIOR ULTRASOUND: Comparison is made with prior study dated 04/15/2020. TECHNIQUE: Transabdominal TECHNICAL QUALITY: Adequate. FINDINGS: There is a single intrauterine fetus. The fetus is in a cephalic presentation. There is demonstrated cardiac activity with a heart rate of 126 bpm. There is a normal amniotic fluid volume. The largest amniotic fluid pocket measures 5.5 cm. The amniotic fluid index (SULEIMAN) is 19.14 cm. The placenta is posterior in location and is not low lying. There are Grade 2 placental changes. The cervix measures 4.5 cm in length. BIOMETRY: Age by LMP: 32 weeks, 3 days. SKYLA by LMP: 06/13/2020. US/OB Limited (No Biometrics) IMPRESSION: Normal amniotic fluid. Electronically Signed: Ian Cox, at 14:11 EDT , Service support ,
[2020-04-21 09:15] LABS: Absolute Lymphocyte Count 2.67 X10^3/uL (0.83-4.51); Absolute Neutrophil Count 9.8 X10^3/uL (2.0-7.7); Basophil# 0.06 X10^3/uL; Basophil% 0.4 % (0-1); Eosinophil# 0.07 X10^3/uL; Eosinophils% 0.5 % (0-5); Hemoglobin 11.3 g/dL (12.0-15.0); Lymphocyte # 2.67 X10^3/ul (4.0); Lymphocyte % 19.8 % (19-41); Mean Corp Hgb Conc 33.2 g/dL (32-36); Mean Corpuscular Volume 93.4 fL (81-99); Mean Platelet Vol. 9.9 fl (6.2-12.0); Monocyte% 5.9 % (0-10); NRBC Flagged by Analyzer 0 % (0-5); Neutrophil # 9.79 X10^3/uL (2.7-7.7); Neutrophil % 72.8 % (47-70); Platelet Count 267 K/mm3 (150-450); RBC Distribution Width CV 14.1 % (11.6-14.6); RBC Distribution Width SD 47.2 fl (35.1-43.9); Red Blood Count 3.64 M/mm3 (4.2-5.4); White Blood Count 13.5 K/mm3 (4.4-11.0)
[2020-04-21 09:47] LABS: ALB/GLOB Ratio 0.7 RATIO (0.9-2.4); AST(SGOT) 8 U/L (15-37); Alanine Aminotransfer ALT/SGPT 12 U/L (13-56); Albumin, Serum 2.6 g/dL (3.2-5.0); Alkaline Phosphatase 106 U/L (45-117); Anion Gap 7 (5-15); BUN 6 mg/dL (7-18); BUN/Creat Ratio 8.9 RATIO (10-20); Calcium,Total 9.3 mg/dL (8.5-10.1); Chloride 111 mmol/L (98-107); Creatinine, Serum 0.67 mg/dL (0.55-1.02); EST Glomerular Filtration Rate 107 mL/min (>60); Est Glom Filt Rate - Afr Amer 129 mL/min (>60); Globulin 3.8 g/dL (2.2-4.2); Glucose 87 mg/dL (74-106); Potassium 3.8 mmol/L (3.5-5.1); Protein, Total 6.4 g/dL (6.4-8.2); Sodium Level 139 mmol/L (136-145)
== END ==
PROVIDERS: PCP Family Medicine; Referring Provider Obstetrics & Gynecology; Visit Provider Obstetrics & Gynecology
DX: O16.2 Unspecified maternal hypertension, second trimester (principal); O09.90 Supervision of high risk pregnancy, unspecified, unspecified trimester; Z3A.00 Weeks of gestation of pregnancy not specified
CPT/HCPCS: 36415; 76815; 80053; 85025

== ENCOUNTER → 2020-04-28 08:49 | Outpatient (CLI) | payer OTHER, SELFPAY ==
[2020-04-06 14:01] VITALS: BMI 36.3
[2020-04-21 10:38] VITALS: BMI 36.3
--- NOTE | 2020-04-28 08:55 | US_ITS ---
STUDY: SECOND AND THIRD TRIMESTER OBSTETRICAL ULTRASOUND - LIMITED REASON FOR EXAM: Female, 34 years old SULEIMAN LMP: 09/07/2019. PRIOR ULTRASOUND: Comparison is made with prior study dated 04/21/2020. TECHNIQUE: Transabdominal TECHNICAL QUALITY: Adequate. FINDINGS: There is a single intrauterine fetus. The fetus is in a cephalic presentation. There is demonstrated cardiac activity with a heart rate of 123 bpm. There is a normal amniotic fluid volume. The largest amniotic fluid pocket measures 8.6 cm. The amniotic fluid index (SULEIMAN) is 25.16 cm. This is elevated. The placenta is posterior in location and is not low lying. There are Grade 2 placental changes. The cervix measures 3.4 cm in length. US/OB Limited (No Biometrics) IMPRESSION: Elevation of the amniotic fluid index. The amniotic fluid index measures 25.16 cm. Electronically Signed: Ian Cox, at 9:55 EDT , Service support ,
== END ==
PROVIDERS: PCP Family Medicine; Referring Provider Obstetrics & Gynecology; Visit Provider Obstetrics & Gynecology
DX: O09.90 Supervision of high risk pregnancy, unspecified, unspecified trimester (principal); Z3A.00 Weeks of gestation of pregnancy not specified
CPT/HCPCS: 76815

== ENCOUNTER → 2020-05-07 13:25 | Outpatient (CLI) | payer OTHER, SELFPAY ==
[2020-04-06 14:01] VITALS: BMI 36.3
[2020-04-28 10:06] VITALS: BMI 36.3
[2020-05-07 10:40] LABS: Protein, Urine (Random) 28.7 mg/dL (<11.9); Protein:Creat Ratio 94 mg/g CRE (0-200)
--- NOTE | 2020-05-07 13:48 | US_ITS ---
STUDY: SECOND AND THIRD TRIMESTER OBSTETRICAL ULTRASOUND - LIMITED REASON FOR EXAM: Female, 34 years old GROWTH LMP: 09/07/2019. PRIOR ULTRASOUND: Comparison is made with prior study dated 04/28/2020. TECHNIQUE: Transabdominal TECHNICAL QUALITY: Adequate. FINDINGS: There is a single intrauterine fetus. The fetus is in a cephalic presentation. There is demonstrated cardiac activity with a heart rate of 123 bpm. There is a normal amniotic fluid volume. The largest amniotic fluid pocket measures 7.2 cm. The amniotic fluid index (SULEIMAN) is 23.2 cm. The placenta is fundal in location. There are Grade 1 placental changes. The cervix measures 3.4 cm in length. BIOMETRY: BPD: 8.63 cm: 34 weeks, 5 days HC: 30.62 cm: 34 weeks, 0 days AC: 31.12 cm: 35 weeks, 0 days FL: 6.4 cm: 33 weeks, 0 days Age by LMP: 34 weeks, 5 days. SKYLA by LMP: 06/13/2020. age by prior US: 35 weeks, 3 days. SKYLA by prior US: 06/08/2020. age by current US: 33 weeks, 6 days. SKYLA by current US: 06/19/2020. Estimated weight: 2462 grams, +/- 369 grams, 65 percentile. US/OB Limited With Biometrics IMPRESSION: Single live intrauterine gestation with a mean gestational age of 35 weeks and 3 days. The measurements obtained today fall within normal expected range. Electronically Signed: Ian Cox, at 9:04 EDT , Service support ,
== END ==
PROVIDERS: PCP Family Medicine; Referring Provider Obstetrics & Gynecology; Visit Provider Obstetrics & Gynecology
DX: O16.3 Unspecified maternal hypertension, third trimester (principal); O40.3XX0 Polyhydramnios, third trimester, not applicable or unspecified; Z3A.35 35 weeks gestation of pregnancy
CPT/HCPCS: 76816; 82570; 84156

== ENCOUNTER → 2020-05-12 12:34 | Outpatient (CLI) | payer OTHER, SELFPAY ==
[2020-04-06 14:01] VITALS: BMI 36.3
[2020-05-07 15:15] VITALS: BMI 36.3
--- NOTE | 2020-05-12 12:34 | US_ITS ---
STUDY: SECOND AND THIRD TRIMESTER OBSTETRICAL ULTRASOUND - LIMITED REASON FOR EXAM: Female, 34 years old suleiman LMP: 09/06/2019 PRIOR ULTRASOUND: Comparison is made with prior examination of 05/07/2020. TECHNIQUE: Transabdominal TECHNICAL QUALITY: Adequate. FINDINGS: There is a single intrauterine fetus. The fetus is in a cephalic presentation. There is demonstrated cardiac activity with a heart rate of 137 bpm. There is a normal amniotic fluid volume. The largest amniotic fluid pocket measures 7.5 cm. The amniotic fluid index (SULEIMAN) is 20.4 cm. The placenta is fundal and posterior in location. There are Grade 2 placental changes. The cervix measures 3.3 cm in length. BIOMETRY: Age by LMP: 35 weeks, 3 days. KSYLA by LMP: 06/13/2020. US/OB Limited (No Biometrics) IMPRESSION: Normal amniotic fluid. Electronically Signed: Ian Cox, at 14:15 EDT , Service support ,
== END ==
PROVIDERS: PCP Family Medicine; Referring Provider Obstetrics & Gynecology; Visit Provider Obstetrics & Gynecology
DX: O40.3XX0 Polyhydramnios, third trimester, not applicable or unspecified (principal); Z3A.00 Weeks of gestation of pregnancy not specified
CPT/HCPCS: 76815

== ENCOUNTER → 2020-05-18 13:06 | Outpatient (CLI) | payer OTHER, SELFPAY ==
[2020-05-18 12:05] VITALS: BMI 36.3
[2020-05-18 13:37] LABS: Absolute Lymphocyte Count 3.25 X10^3/uL (0.83-4.51); Absolute Neutrophil Count 10.9 X10^3/uL (2.0-7.7); Basophil# 0.04 X10^3/uL; Basophil% 0.3 % (0-1); Eosinophil# 0.06 X10^3/uL; Eosinophils% 0.4 % (0-5); Hematocrit 36.6 % (37-47); Lymphocyte # 3.25 X10^3/ul (4.0); Lymphocyte % 21.3 % (19-41); Mean Corp Hgb Conc 32.8 g/dL (32-36); Mean Corpuscular Hgb 30.7 pg (27.0-32.0); Mean Corpuscular Volume 93.6 fL (81-99); Mean Platelet Vol. 10.7 fl (6.2-12.0); Monocyte# 0.89 X10^3/uL; Monocyte% 5.8 % (0-10); NRBC Flagged by Analyzer 0 % (0-5); Neutrophil # 10.87 X10^3/uL (2.7-7.7); Neutrophil % 71.4 % (47-70); Platelet Count 273 K/mm3 (150-450); RBC Distribution Width CV 13.9 % (11.6-14.6); RBC Distribution Width SD 46.6 fl (35.1-43.9); Red Blood Count 3.91 M/mm3 (4.2-5.4); White Blood Count 15.2 K/mm3 (4.4-11.0)
[2020-05-18 14:10] LABS: ALB/GLOB Ratio 0.7 RATIO (0.9-2.4); AST(SGOT) 8 U/L (15-37); Alanine Aminotransfer ALT/SGPT 12 U/L (13-56); Albumin, Serum 2.5 g/dL (3.2-5.0); Alkaline Phosphatase 151 U/L (45-117); Anion Gap 8 (5-15); BUN 5 mg/dL (7-18); BUN/Creat Ratio 7.6 RATIO (10-20); Calcium,Total 8.8 mg/dL (8.5-10.1); Chloride 110 mmol/L (98-107); Creatinine, Serum 0.66 mg/dL (0.55-1.02); EST Glomerular Filtration Rate 110 mL/min (>60); Est Glom Filt Rate - Afr Amer 133 mL/min (>60); Globulin 3.8 g/dL (2.2-4.2); Glucose 77 mg/dL (74-106); Potassium 3.9 mmol/L (3.5-5.1); Protein, Total 6.3 g/dL (6.4-8.2); Sodium Level 140 mmol/L (136-145)
== END ==
PROVIDERS: PCP Family Medicine; Referring Provider Obstetrics & Gynecology; Visit Provider Obstetrics & Gynecology
DX: O09.90 Supervision of high risk pregnancy, unspecified, unspecified trimester (principal); O16.3 Unspecified maternal hypertension, third trimester; Z3A.00 Weeks of gestation of pregnancy not specified
CPT/HCPCS: 36415; 80053; 85025; 87081

== ENCOUNTER → 2020-05-19 13:29 | Outpatient (CLI) | payer OTHER, SELFPAY ==
[2020-04-06 14:01] VITALS: BMI 36.3
[2020-05-18 12:05] VITALS: BMI 36.3
--- NOTE | 2020-05-19 13:50 | US_ITS ---
STUDY: SECOND AND THIRD TRIMESTER OBSTETRICAL ULTRASOUND - LIMITED REASON FOR EXAM: Female, 34 years old suleiman LMP: 09/07/2019. PRIOR ULTRASOUND: Comparison is made with prior examination dated 05/12/2020. TECHNIQUE: Transabdominal TECHNICAL QUALITY: Adequate. FINDINGS: There is a single intrauterine fetus. The fetus is in a cephalic presentation. There is demonstrated cardiac activity with a heart rate of 123 bpm. There is a normal amniotic fluid volume. The largest amniotic fluid pocket measures 6.1 cm. The amniotic fluid index (SULEIMAN) is 19.9 cm. The placenta is fundal and posterior in location. There are Grade 2 placental changes. The cervix measures 3 cm in length. US/OB Limited (No Biometrics) IMPRESSION: Normal amniotic fluid. Electronically Signed: Ian Cox, at 15:11 EDT , Service support ,
== END ==
PROVIDERS: PCP Family Medicine; Referring Provider Obstetrics & Gynecology; Visit Provider Obstetrics & Gynecology
DX: O09.90 Supervision of high risk pregnancy, unspecified, unspecified trimester (principal); Z3A.00 Weeks of gestation of pregnancy not specified
CPT/HCPCS: 76815

== ENCOUNTER 2020-05-23 12:20 | Outpatient (CLI) | payer OTHER, SELFPAY ==
[2020-05-18 12:05] VITALS: BMI 36.3
[2020-05-23 12:33] VITALS: BP 127/80; PULSE 80
[2020-05-23 12:34] VITALS: PULSE 78; TEMP 36.7; O2SAT 98
[2020-05-23 12:45] VITALS: BMI 37.2
--- NOTE | 2020-05-23 14:30 | OB.TRI.PN ---
Progress Notes Date of Service: 05/23/20 Progress Note: 34yo at 37 weeks presents for decreased movement. Movement increased upon arrival. NST reactive. Denies contractions, LOF, VB. Discharged to home in stable condition. Multi Select Codes - Urinary/Genital Urinary/Genital CPT Codes: 25952-29 non-stress test Interp
== END 2020-05-23 13:30 | disposition home or self-care (01) ==
LOC: WPOUT 12:28 → OBT 12:29
PROVIDERS: PCP Family Medicine; Visit Provider Obstetrics & Gynecology
DX: O36.8130 Decreased fetal movements, third trimester, not applicable or unspecified (principal); Z3A.37 37 weeks gestation of pregnancy
CPT/HCPCS: 59025; 59050; 99218; G0378

== ENCOUNTER 2020-05-27 07:00 | Inpatient (IN) | payer OTHER, SELFPAY ==
[2020-05-12 13:51] VITALS: BMI 36.3
[2020-05-24 15:01] VITALS: BMI 37.2
[2020-05-27] VITALS (62 sets, daily range): BP systolic 108–141; BP diastolic 52–102; PULSE 56–160; RESP 16; TEMP 36.3–37.3; O2SAT 92–100; BMI 37.3
[2020-05-27] MEDS: Lactated Ringers 1,000 ML 50 ML IV (07:20)
[2020-05-27 08:07] LABS: Absolute Lymphocyte Count 2.46 X10^3/uL (0.83-4.51); Absolute Neutrophil Count 8.2 X10^3/uL (2.0-7.7); Basophil# 0.03 X10^3/uL; Basophil% 0.3 % (0-1); Eosinophil# 0.04 X10^3/uL; Eosinophils% 0.3 % (0-5); Hematocrit 36.5 % (37-47); Hemoglobin 11.9 g/dL (12.0-15.0); Lymphocyte # 2.46 X10^3/ul (4.0); Lymphocyte % 21.4 % (19-41); Mean Corp Hgb Conc 32.6 g/dL (32-36); Mean Corpuscular Hgb 30.4 pg (27.0-32.0); Mean Corpuscular Volume 93.4 fL (81-99); Mean Platelet Vol. 10.8 fl (6.2-12.0); Monocyte# 0.74 X10^3/uL; Monocyte% 6.4 % (0-10); NRBC Flagged by Analyzer 0 % (0-5); Neutrophil # 8.19 X10^3/uL (2.7-7.7); Neutrophil % 71.2 % (47-70); Platelet Count 247 K/mm3 (150-450); RBC Distribution Width CV 13.8 % (11.6-14.6); RBC Distribution Width SD 46.6 fl (35.1-43.9); Red Blood Count 3.91 M/mm3 (4.2-5.4); White Blood Count 11.5 K/mm3 (4.4-11.0)
--- NOTE | 2020-05-27 08:07 | HP.PCM_ITS ---
- Problem List (1) Asymptomatic bacteriuria during Status: Acute Comment: macrobid. repeat urine culture negative (2) Bilateral pulmonary embolism Status: Acute Comment: prophylactic lovenox 40 mg BID this and plan 6 weeks PP. (3) Depression affecting in third trimester, antepartum Status: Acute Comment: celexa started 03/24. counseling encouraged. (4) Elevated blood pressure affecting in third trimester, antepartum Status: Acute Comment: on procardia XL daily, recommend IOL 37 weeks (5) Elevated glucose tolerance test Status: Acute Comment: 3hrGTT- normal (6) H/O pre-eclampsia in prior , currently Status: Acute Comment: Baby ASA; baseline labs nl. (7) History of miscarriage, currently Status: Acute Comment: Baby ASA (8) Iron (Fe) deficiency anemia Status: Acute (9) Obesity affecting Status: Acute Qualifiers: Comment: BMI 34- glucola nl at [facility], encouraged healthy weight gain. Growth US n ormal (10) Status: Acute Qualifiers: Comment: genetic-low risk, declines carrier and Afp screening. (11) Supervision of high risk , antepartum Status: Acute Comment: PRR SKYLA: 06/13/20 girl Izzy PC: Ramsey Spouse: Flores (12) Polyhydramnios affecting in third trimester Status: Resolved Comment: weekly NST. 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: No Accompanied by: Is patient in pain?: No Allergies No Known Allergies Allergy (Verified 05/24/20 15:00) Medications multivitamin no.47-iron fum 27 mg-folate no.1 1 mg-dha 300 mg capsule 1 cap PO DAILY 11/06/19 [History Confirmed 05/24/20] enoxaparin 40 mg/0.4 mL subcutaneous syringe 40 mg SC DAILY 01/28/20 [History Confirmed 05/24/20] citalopram 20 mg tablet 20 mg PO DAILY #30 tab 03/25/20 [Rx Confirmed 05/24/20] Ferrous Sulfate [Iron] 1 tab PO DAILY 04/02/20 [History Confirmed 05/24/20] blood pressure test kit-large See Rx Instructions .ROUTE .MEDSUPPLY #1 ea 04/02/20 [Rx Confirmed 05/24/20] betamethasone acetate and sodium phos 6 mg/mL suspension for injection 12 mg IM DAILY #5 ml 04/05/20 [Rx Confirmed 05/24/20] nifedipine 30 mg tablet,extended release 24 hr 30 mg PO DAILY #30 tab 04/05/20 [Rx Confirmed 05/24/20] Last Menstral Period: 09/07/19 Zika: Zika virus screening: Negative : No PFSH PFS Medical History H/O pre-eclampsia in prior , currently (Acute) Bilateral pulmonary embolism (Acute) History of miscarriage, currently (Acute) Exposure to blood (Acute) Perianal abscess (Acute) Puncture wound of thumb, left (Acute) No significant past medical history (Resolved) DVT (deep venous thrombosis) (Inactive) Surgical History History of laparoscopic cholecystectomy (Acute) Family History Grandmother Breast cancer Grandfather No problems noted. Father Hypertension Diabetes Mother Hypertension Social History (Updated 05/24/20 @ 15:[address] Donya Gonzalez MD) adopted: No household members: family housing: house number of children: 1 current occupational status: employed current occupation: [employer]- pets and animals: Yes sexually active: Yes Smoking Status: Never smoker second hand exposure: No alcohol intake: current details: not while substance use type: does not use seatbelt use: always do you feel safe at home: Yes additional social history: Flores Pregancy History 4 Elective abortions Hx Para 1 Spontaneous abortions Hx # Term Pregnancies Ectopic pregnancies Hx # Pregnancies Multiple births # of living children 1 Past Pregnancies Del. Date Name GA/Weeks Outcome Route Bth Weight Infant Gen Labor Lgth Anesthesia Del Locatn Provider FOB 11/01/14 Ramsey 36 live - 6lbs 11oz Male 16 hours epidural [place] Flores Delivery Date: 11/01/14 On 11/06/19 @ 09:16 IrisJailyn pre-e HPI 37 WK OB: Details: HAMLET TEIXEIRA is a 34 year old @ 37 for IOL GHTN controlled with meds and h/o PE. OB Visit SKYLA Calculator Estimated Delivery Date Method Current WG Current Estimate 06/13/20 LMP (Certain) 37w 1d Other Estimates 06/19/20 Ultrasound #1 36w 2d Expected Delivery Route/Plan IOL at 37 due to lovenox Labor Preferences- CB/BF classes: na labor support person: flores labor intervention preferences: desires hydrotherapy in labor pain management options preferred: open to epidural cut cord/dad catch: [] : [] PP control planned: condoms discussed possible routes of delivery and associated risks: [] special requests: [] Specific Issue/Plans flu vaccine given tdap vaccine given rhogam na LARC form signed declined movement and labor precautions reviewed. Signs and symptoms of PreE reviewed. Problem list reviewed and updated with the most current details and appropriate orders placed. Continue routine care and follow up unless otherwise noted in visit notes/problem list details. Initial Weight: 197 lb Date EGA Weight BP Urine Prot Glucose FHR FuHt Pres Dilation Effaced St Visit Note 11/06/19 8w 4d 197 lb (+0 oz) 112/72 168 12/04/19 12w 4d 126/74 Negative Negative 160 SM- no vb doinng well, still having nausea 12/29/19 16w 1d 213 lb (+16 lb) 124/80 Negative Negative 150 Sm- no vb lof no regular ctx 01/28/20 20w 3d 214 lb (+17 lb) 122/86 Negative Negative 144 20 MH-NO Vb, LOF. Good FM. Some dizziness-small freq meals and increase fluids. 02/23/20 24w 1d 213 lb 8 oz (+16 lb 8 oz) 136/86 Negative Negative 146 24 MH-No VB, LOF. Good FM. 03/24/20 28w 3d 213 lb 8 oz (+16 lb 8 oz) 130/80 Negative Negative 140 28 SM- no vb lof good fm no regular ctx co increased emotional lability, and depression scoring significant, recommend starting celexa, counseling options reviewed. left lower extremity pain- will get left leg doppler to rule out DVT 04/05/20 30w 1d 211 lb (+14 lb) 130/80 130 30 GP - having continued blurred vision. Denies CP/SOB/RUQ/epigastric pain. Denies ctx,LOF,VB,DFM. GP - having continued blurred vision. Denies CP/SOB/RUQ/epigastric pain. Denies ctx,LOF,VB,DFM. BPs at home all mild range with 2 severe. 04/09/20 30w 5d 211 lb (+14 lb) 128/70 Negative Negative 133 MH-some blurred vision-persistant sx. No Headache. Nl BP and urine. Pre E labs nl 04/05. Good FM. No VB, lof. 04/21/20 32w 3d 208 lb 2 oz (+11 lb 2 oz) 120/70 Negative Negative 125 05/07/20 34w 5d 210 lb 4 oz (+13 lb 4 oz) 136/82 Negative Negative 05/12/20 35w 3d 209 lb 4 oz (+12 lb 4 oz) 120/62 Negative Negative 130 MH-NST only reactive 05/18/20 36w 2d 212 lb 4 oz (+15 lb 4 oz) 140/82 Negative Negative 130 Cephalic 1 40 -3 GP - [place] and increased pre ssure reported. No symptoms currently. No LOF, VB, DFM. More frequent ctx. Labs ordered. PreE precautions reviewed. 05/24/20 37w 1d 212 lb (+15 lb) 126/60 Trace Negative 130 37 Cephalic 1.5 70 -1 SM- discussed IOL this we ek due to GHTN. plan sunday night, hold lovenox 24 hours in advance. ACOG First Trimester First Trimester: Desire for , Alcohol, Tobacco Cessation, Illicit/Recreational Drug/Substance Use, Intimate Partner Violence, Barriers to care, Unstable Housing, Communication Barriers, Environmental/Work Hazards, Anticipated Course of Care, Toxoplasmosis Precations, Use of Any medications, Sexual activity, Exercise, Dental Care, Sauna/Hot tub use, Seat Belt use, Childbirth classes/Hospital facilities, , Travel, Indications for US and Screening for Aneuploidy Second Trimester Second Trimester: Signs and Symptoms of Labor, Selecting a care provider, Reproductive Life Planning, Care Planning, Tobacco Cessation, Depression/Anxiety and Intimate Partner Violence Third Trimester Third Trimester: Signs and Symptoms of Preeclampsia Diagnostics Diagnostics Diagnostics Hgb 12.0 g/dL (12.0-15.0) 05/18/20 Hct 36.6 % (37-47) L 05/18/20 Details: HIV: Urine Culture: Sequential Screen: NIPT Screen: ROS Const Reports system reviewed and no additional complaints, except as docu Card Reports system reviewed and no additional complaints, except as docu Resp Reports system reviewed and no additional complaints, except as docu GI Reports system reviewed and no additional complaints, except as docu, Reports nausea Reports system reviewed and no additional complaints, except as docu Musc Reports system reviewed and no additional complaints, except as docu Exam Const General: cooperative, healthy appearing, comfortable, anxious HENMT Head: normal to inspection Nose: external nose normal Face and sinus: normal facial exam Neck Neck: normal visual inspection, full ROM, no lymphadenopathy Thyroid: thyroid normal Chest Chest palpation & inspection: normal inspection of the chest Resp Effort & Inspection: normal respiratory effort GI Inspection: normal to inspection Palpation: soft, other (gravid uterus) Other: infant vertex and appropriate size for gestational age Other: Cervical Exam: Extrem General: pedal edema Results POC Urinalysis 2 Dip (Clinic) Office Urine Glucose Negative Last Edit by Suzette Fry on 05/24/20 15:0 4 Office Urine Protein Trace Last Edit by Suzette Fry on 05/24/20 15:04 Assessment & Plan Problems 1. Polyhydramnios affecting in third trimester O40.3XX0 weekly NST. Del at 37 wk RESOLVED 2. Elevated blood pressure affecting in third trimester, antepartum O16.3 on procardia XL daily, recommend IOL 37 weeks 3. Iron (Fe) deficiency anemia D50.9 4. Elevated glucose tolerance test R73.09 3hrGTT- normal 5. Depression affecting in third trimester, antepartum O99.343; F32.9 celexa started 03/24. counseling encouraged. 6. Asymptomatic bacteriuria during O99.89; R82.71 macrobid. repeat urine culture negative 7. Obesity affecting O99.210 BMI 34- glucola nl at [facility], encouraged healthy weight gain. Growth US normal 8. Z34.90 genetic-low risk, declines carrier and Afp screening. 9. Supervision of high risk , antepartum O09.90 PRR SKYLA: 06/13/20 girl Izzy PC: Ramsey Spouse: Flores Pizarro. H/O pre-eclampsia in prior , currently O09.299 Baby ASA; baseline labs nl. 11. Bilateral pulmonary embolism I26.99 prophylactic lovenox 40 mg BID this and plan 6 weeks PP. 12. History of miscarriage, currently O09.299 Baby ASA Orders Orders: POC Urinalysis 2 Dip (Clinic) Today Patient presents IOL, plan management for with fb/pit Pain management: open to epidural GBS negative. Management of any complications: check preeclampsia I have reviewed the [facility] and made any clinically relevant updates. Coding Level of Care Code OB Routine Diagnoses Polyhydramnios affecting in third trimester O40.3XX0 Elevated blood pressure affecting in third trimester, antepartum O16.3 Iron (Fe) deficiency anemia D50.9 Elevated glucose tolerance test R73.09 Depression affecting in third trimester, antepartum O99.343; F32.9 Asymptomatic bacteriuria during O99.89; R82.71 Obesity affecting O99.210 Z34.90 Supervision of high risk , antepartum O09.90 H/O pre-eclampsia in prior , currently O09.299 Bilateral pulmonary embolism I26.99 History of miscarriage, currently O09.299
[2020-05-27 08:22] LABS: ALB/GLOB Ratio 0.6 RATIO (0.9-2.4); AST(SGOT) 11 U/L (15-37); Alanine Aminotransfer ALT/SGPT 13 U/L (13-56); Albumin, Serum 2.3 g/dL (3.2-5.0); Alkaline Phosphatase 152 U/L (45-117); Anion Gap 8 (5-15); BUN 7 mg/dL (7-18); BUN/Creat Ratio 10.7 RATIO (10-20); Calcium,Total 8.9 mg/dL (8.5-10.1); Chloride 110 mmol/L (98-107); Creatinine, Serum 0.66 mg/dL (0.55-1.02); EST Glomerular Filtration Rate 110 mL/min (>60); Est Glom Filt Rate - Afr Amer 133 mL/min (>60); Estimated Creatinine Clearance 100.29 ml/min; Globulin 3.6 g/dL (2.2-4.2); Glucose 93 mg/dL (74-106); Potassium 3.7 mmol/L (3.5-5.1); Protein, Total 5.9 g/dL (6.4-8.2); Sodium Level 138 mmol/L (136-145)
[2020-05-27] MEDS: 0.9% Normal Saline Single 100 ML IV.SOLN. IY (08:26)
[2020-05-27] MEDS: Oxytocin 30 units/NS 500 ml 30 UNITS/500 ML IV.SOLN IV (09:08)
[2020-05-27] MEDS: Lactated Ringers 500 ML 999 ML IV ×2 (14:04→14:42)
[2020-05-27] MEDS: 0.9% Saline Lock 10 ML Syringe IV ×2 (14:13→19:37)
[2020-05-27] MEDS: Ondansetron 4 MG/2 ML Vial IV (14:13)
[2020-05-27] MEDS: fentaNYL-bupivacaine (epidural) 100 ML BAG EPIDURAL (14:34)
[2020-05-27] MEDS: Oxytocin 30 units/NS 500 ml 30 UNITS/500 ML IV.SOLN 334 UNITS IV (16:55)
--- NOTE | 2020-05-27 17:02 | PCM.OPRPT ---
Problem List (1) Asymptomatic bacteriuria during Status: Acute Comment: macrobid. repeat urine culture negative (2) Bilateral pulmonary embolism Status: Acute Comment: prophylactic lovenox 40 mg BID this and plan 6 weeks PP. (3) Depression affecting in third trimester, antepartum Status: Acute Comment: celexa started 03/24. counseling encouraged. (4) Elevated blood pressure affecting in third trimester, antepartum Status: Acute Comment: on procardia XL daily, recommend IOL 37 weeks (5) Elevated glucose tolerance test Status: Acute Comment: 3hrGTT- normal (6) H/O pre-eclampsia in prior , currently Status: Acute Comment: Baby ASA; baseline labs nl. (7) History of miscarriage, currently Status: Acute Comment: Baby ASA (8) Iron (Fe) deficiency anemia Status: Acute (9) Obesity affecting Status: Acute Qualifiers: Comment: BMI 34- glucola nl at [facility], encouraged healthy weight gain. Growth US normal (10) Status: Acute Qualifiers: Comment: genetic-low risk, declines carrier and Afp screening. (11) Supervision of high risk , antepartum Status: Acute Comment: PRR SKYLA: 06/13/20 ezra Magana PC: Ramsey Spouse: Herberth (12) Polyhydramnios affecting in third trimester Status: Resolved Comment: weekly NST. Del at 37 wk RESOLVED Vaginal Delivery Maternal Presentation: Medically Indicated Induction iol GHTN and h/o PE Method of Induction: Pitocin, Barrios Bulb Amniotic Membrane Rupture Type: Spontaneous Amniotic Fluid Description: Clear Final SKYLA: 06/14/20 Gestational age: 37 Weeks and 3 Days Date of Procedure: 05/27/20 Pre-Operative Diagnosis: iol ghtn h/o pe Post-Operative Diagnosis: same Surgery/ Procedure Performed: Spontaneous Vaginal Delivery Type of Anesthesia: Epidural Description of Procedure: Patient began pushing and delivered the head in the ELIZABETH presentation. The head was delivered atraumatically . The anterior and posterior shoulders delivered without complication followed by the rest of the infant and the was placed on the maternal abdomen. Delayed cord clamping was employed for approximately 60 seconds. Cord was clamped and cut and gentle traction was applied to the cord and the placenta delivered spontaneously immediately following it was noted to be intact with three-vessel cord. The perineum and vagina were inspected and noted to have no laceration. EBL was 100 cc. Patient and tolerated delivery well. Presentation: ELIZABETH Placental Delivery Description: Spontaneous Placenta Disposition: [facility] Cord Entanglement: None Estimated Blood Loss: 100 Infant A gender: Female Episiotomy Description: None Laceration: None Medications given after delivery: IV Pitocin Multi Select Codes - Urinary/Genital Urinary/Genital CPT Codes: 86677 Vaginal Delivery [facility]
[2020-05-28] VITALS (7 sets, daily range): BP systolic 109–149; BP diastolic 53–79; PULSE 49–71; RESP 14–18; TEMP 36.4–36.9; O2SAT 97–100
--- NOTE | 2020-05-28 07:41 | PN.OBGYN_ITS ---
Subjective: Patient doing well without complaints. Tolerating PO. Ambulating and voiding without difficulty. breast feeding well. Denies chest pain, shortness of breath, calf pain/swelling, fevers, chills, lightheadedness. - Physical Exam Vitals/I&O's: Vital Signs Temp Pulse Resp BP Pulse Ox 97.9 F 49 L 16 132/72 H 98 05/28/20 04:20 05/28/20 04:20 05/28/20 04:20 05/28/20 04:20 05/27/20 18:53 Oxygen Delivery Method Room Air Weight: 210 lb 8 oz Body Mass Index (BMI) 37.3 Intake and Output for Last 24 Hours 05/26/20 05/27/20 05/28/20 23:59 23:59 23:59 Intake Total 2369.33 / 2369.33 1000 / 1000 Output Total 1150 / 1150 Balance 1219.33 / 1219.33 1000 / 1000 General: Alert, Oriented x3 Laboratory Results 05/27/20 07:45: WBC 11.5 H, RBC 3.91 L, Hgb 11.9 L, Hct 36.5 L, MCV 93.4, MCH 30.4, MCHC 32.6, RDW Std Deviation 46.6 H, RDW Coeff of Macie 13.8, Plt Count 247, MPV 10.8, Immature Gran % (Auto) 0.400, Neut % (Auto) 71.2 H, Lymph % (Auto) 21.4, [place] % (Auto) 6.4, Eos % (Auto) 0.3, Baso % (Auto) 0.3, Absolute Neuts (auto) 8.2 H, Absolute Lymphs (auto) 2.46, Nucleated RBC % 0 05/27/20 07:45: Blood Type A POSITIVE, Antibody Screen NEGATIVE 05/27/20 07:45: Sodium 138, Potassium 3.7, Chloride 110 H, Carbon Dioxide 20.0 L , Anion Gap 8, BUN 7, Creatinine 0.66, Estim Creat Clear Calc 100.29, Est GFR (MDRD) Af Amer 133, Est GFR (MDRD) Non-Af 110, BUN/Creatinine Ratio 10.7, Glucose 93, Calcium 8.9, Total Bilirubin 0.20, AST 11 L, ALT 13, Alkaline Phosphatase 152 H, Total Protein 5.9 L, Albumin 2.3 L, Globulin 3.6, Albumin/Globulin Ratio 0.6 L Current Medications Acetaminophen (Tylenol) 1,000 mg PO Q8H PRN PRN PRN Reason: Pain Score 1-3/10 Bisacodyl (Dulcolax) 10 mg RECTAL UD PRN PRN Reason: If no BM Citalopram Hydrobromide (Celexa) 20 mg PO DAILY HERO Dibucaine (Dibucaine) 1 applic TOPICAL TID PRN PRN; Protocol PRN Reason: Discomfort Enoxaparin Sodium (Lovenox) 40 mg SC BID [facility] Ferrous Sulfate (Ferrous Sulfate) 325 mg PO DAILYCM HERO Hydrocortisone (Hytone) 1 applic TOPICAL TID PRN PRN; Protocol PRN Reason: Discomfort Ibuprofen (Motrin) 600 mg PO Q6H PRN PRN PRN Reason: Pain Score 1-3/10 Methylergonovine Maleate (Methergine) 0.2 mg IM X1 PRN PRN Reason: Excess bleeding/uterine atony Ondansetron HCl (Zofran) 4 mg IV Q4H PRN PRN PRN Reason: Nausea Oxycodone HCl (Oxyir) 5 - 10 mg PO Q4H PRN PRN PRN Reason: Pain Score 4-10/10 Multivit/Folic Acid/Iron (Prenatabs Fa) 1 tablet PO DAILY@1200 HERO Senna/Docusate Sodium (Senokot-S, Renee-Colace) 1 - 2 tablet PO DAILY PRN PRN PRN Reason: Constipation Simethicone (Mylicon) 80 mg PO PCHS PRN PRN Reason: Indigestion/Stomach pain Sodium Chloride () 5 - 15 ml IV UD PRN PRN Reason: SALINE FLUSH Medical Necessity - Tobacco Use Smoking Status: Never smoker Assessment/Plan All Active Problems (Last Reviewed 05/24/20 @ 15:00 by Suzette Fry) Polyhydramnios affecting in third trimester (Resolved) Elevated blood pressure affecting in third trimester, antepartum (Acute) Iron (Fe) deficiency anemia (Acute) Elevated glucose tolerance test (Acute) Depression affecting in third trimester, antepartum (Acute) Asymptomatic bacteriuria during (Acute) Obesity affecting (Acute) (Acute) Supervision of high risk , antepartum (Acute) H/O pre-eclampsia in prior , currently (Acute) Bilateral pulmonary embolism (Acute) History of miscarriage, currently (Acute) No significant past medical history (Resolved) Subchorionic hematoma in first trimester (Resolved) s/p PPD # 1 1. routine post delivery care 2. breast feeding- support given 3. rh positive 4. rubella immune 5. h/o PE- needs lovenox x 6 weeks
--- NOTE | 2020-05-28 07:45 | DCINST_ITS ---
Discharge Diet: No Restrictions Discharge Activity: Return to Normal Activity, May not drive while taking narcotic pain medications., May Shower May resume sexual activity in: 4-6 weeks Call your doctor if your incision/area has: Continuous Slow Oozing, Sudden Increased Bleeding, Increased Pain/ Swelling, Increased Redness, Foul Smelling Discharge Additional Instructions: If you experience any of the following, contact your healthcare provider. * Bleeding that soaks a pad every hour for 2 hours * Fever 100.4 or higher * Unrelieved incision or abdominal pain * Swelling, redness, discharge or bleeding from your incision or episiotomy site * Your incision begins to separate * Problems urinating (including inability to urinate or burning while urinating). * Visual changes * Severe headache * Flu-like symptoms * Pain or redness in one of both of your breasts * Pain, warmth, tenderness or swelling in your legs, especially the calf area * Frequent nausea and vomiting * Symptoms of depression or anxiety If you experience any of the following, call 911 or go to the nearest Emergency Room. * Chest pain * Problems breathing * Seizure activity * Partial or complete paralysis of a body part, slurred speech, weakness or drooping of the face, or a sudden inability to walk or hold your balance Allergies/Adverse Reactions: Allergies No Known Allergies Allergy (Verified 05/27/20 07:20) Medications to take at Discharge multivitamin no.47-iron fum 27 mg-folate no.1 1 mg-dha 300 mg capsule 1 cap PO DAILY 11/06/19 enoxaparin 40 mg/0.4 mL subcutaneous syringe 40 mg SC DAILY 01/28/20 Ferrous Sulfate [Iron] 1 tab PO DAILY 04/02/20 blood pressure test kit-large See Rx Instructions .ROUTE .MEDSUPPLY #1 ea 04/02/20 Citalopram [Celexa] 20 mg PO DAILY 05/27/20 Please Follow Up With: Donya Gonzalez MD - [phone] When: Call to make an appointment with your doctor in 6 weeks. If you had elevated Blood pressure or 4th degree laceration you will need to be seen in 2 weeks. Primary Care Physician: Sommer Flynn MD [Primary Care Provider] - Test Results: Test results from this visit will be discussed in further detail at your follow- up appointment, if applicable.
[2020-05-28] MEDS: Enoxaparin 40 MG/0.4 ML Syringe SC (10:15)
[2020-05-28] MEDS: Citalopram 20 MG Tablet PO (10:15)
== END 2020-05-28 21:10 | disposition home or self-care (01) | DRG 807 ==
PROVIDERS: Admitting Provider Obstetrics & Gynecology; PCP Family Medicine; Visit Provider Obstetrics & Gynecology
DX: O13.4 Gestational [pregnancy-induced] hypertension without significant proteinuria, complicating childbirth (principal); Z37.0 Single live birth; Z86.711 Personal history of pulmonary embolism; Z3A.37 37 weeks gestation of pregnancy; O99.214 Obesity complicating childbirth; D50.9 Iron deficiency anemia, unspecified; O99.02 Anemia complicating childbirth; F32.9 Major depressive disorder, single episode, unspecified; O99.344 Other mental disorders complicating childbirth
CPT/HCPCS: 59025; 59050; 80053; 85025; 86850; 86900; 86901; 99218; J7120; A4216; G0378; J2405

== ENCOUNTER 2021-05-07 18:54 | Emergency (ER) | payer OTHER, SELFPAY ==
[2021-05-07 18:55] VITALS: BP 182/98; PULSE 100; RESP 20; TEMP 35.8; BMI 36.4
--- NOTE | 2021-05-07 21:40 | RAD_ITS ---
STUDY: X-RAY - RIGHT FOOT CLINICAL: Female, 35 years old. Injury, pain and bruising on top of right foot TECHNIQUE: 3 radiographic view(s) of the right foot. COMPARISON: None. FINDINGS: Normal talus, calcaneus, and tarsal bones. Posterior and inferior calcaneal enthesophytes. Normal visualized subtalar, talonavicular, calcaneocuboid, tarsal and tarsometatarsal articulations. Normal metatarsi. Normal metatarsophalangeal joint of the great toe. Normal tibial and fibular sesamoid bones. Normal interphalangeal joint of the great toe. Normal phalanges of the great toe. Normal second through fifth metatarsophalangeal joints. Normal interphalangeal joints and phalanges of the lesser toes. The soft tissue structures are unremarkable. There is no demonstrated fracture. RAD/Foot min 3 Views IMPRESSION: No acute abnormal finding. Electronically Signed: Mitesh Lyles MD at 22:31 EDT Tel , Service support ,
--- NOTE | 2021-05-07 22:23 | EDS_ITS ---
HPI History of Present Illness Chief Complaint: Fall Informant: patient Onset/Context/Timing Onset: Yesterday Context: Sudden Onset Timing: Continuous Location: Right foot Current Severity: Moderate Maximum Severity: Severe Worsened by: Walking, moving Relieved by: Remaining still. Naproxen taken earlier. Associated Symptoms Associated Symptoms: Negative for Parasthesia, Weakness and Loss of Funtion Narrative Narrative: Patient states she accidentally hit her foot on a piece of furniture and she was walking around it yesterday at home, splayed 2 of her toes apart and hurt very badly. Couple hours later as a result of the fall she took from that injury, she felt pain in her left low back that is persisted today. It hurts more to move. No radiation into her lower extremities, bowel or bladder incontinence, numbness or tingling. [facility] Medical History Bilateral pulmonary embolism Cervical strain DVT (deep venous thrombosis) Exposure to blood H/O pre-eclampsia in prior , currently History of miscarriage, currently No significant past medical history Perianal abscess Puncture wound of thumb, left Scalp contusion Home Medications citalopram 20 mg PO DAILY 05/27/20 [History Last Taken 05/26/20 06:00] naproxen 500 mg PO BID PRN #20 tab 05/07/21 [Rx Last Taken Unknown] Allergy/AdvReac Type Severity Reaction Status Date / Time No Known Allergies Allergy Verified 05/07/21 20:55 Family History Grandmother Breast cancer Grandfather No problems noted. Father Hypertension Diabetes Mother Hypertension Surgical History History of laparoscopic cholecystectomy Social History adopted: No household members: family housing: house number of children: 1 current occupational status: employed current occupation: [employer] pets and animals: Yes sexually active: Yes Smoking Status: Never smoker second hand exposure: No alcohol intake: current details: not while substance use type: does not use seatbelt use: always do you feel safe at home: Yes additional social history: [place] ROS ROS ED Constitutional Constitutional ED: Denies chills or fever(s) Musculoskeletal Musculoskeletal: Reports back pain and extremity pain; Denies neck pain Integumentary Denies Abrasions, rash or wounds Neurologic Neurologic: Denies paresthesias or weakness EXAM Physical Exam Const Vital Signs: 05/07/21 18:55 Temperature 96.4 F L Temperature Source Temporal Pulse Rate 100 Respiratory Rate 20 H Blood Pressure 182/98 H Blood Pressure Mean 126 Positive well nourished and well developed General Appearance ED: well developed and NAD Neck full ROM and supple Back/Spine normal ROM and normal to inspection Back/Spine Narrative: Tender left lumbosacral paraspinal musculature, no midline tenderness. Negative straight leg raises bilaterally. Extremity Extremity Narrative: Ecchymosis and tenderness to the dorsum of the right forefoot, with tenderness mainly at the MTPJ of the fourth toe. No deformities. Skin intact. Neuro oriented x3, no focal motor deficits, no sensory deficits noted and deep tendon reflexes 2+ bilaterally Neuro Narrative: Downgoing toes bilaterally. No clonus. Sensorium / Orientation: alert Psych mental status grossly normal and thought process normal Skin no wounds Rashes: no rashes MDM MDM MDM Narrative Medical decision making narrative: X-rays of the right foot were obtained, on my interpretation 3 views are negative for any fracture or dislocation. I do not think she requires x-ray of her back, she has no midline tenderness, good range of motion and just paraspinal musculature and her mechanism is consistent with a strain. She is having difficulty walking due to the pain that she was given a postop shoe, prescription for Naprosyn which she took earlier and helped some, and advised with regard to supportive care. Discharge Plan Triage Chief Complaint: Fall ED Provider: Jake Estrada Dx/Rx/DC Orders Clinical Impression: Contusion of foot, right, Acute lumbosacral myofascial strain Instructions: ED Back Sprain/Strain Prescriptions: New naproxen 500 MG tablet 500 mg PO BID PRN Qty: 20 RF: 0 No Action citalopram 20 MG tablet 20 mg PO DAILY RF: 0 Primary Care Provider: Sommer Flynn Referrals: Sommer Flynn MD [Primary Care Provider] - As Needed Disposition Disposition: Home, Self Care
== END 2021-05-07 22:42 | disposition home or self-care (01) ==
PROVIDERS: Emergency Provider Emergency Medicine; PCP Family Medicine
DX: S00.03XA Contusion of scalp, initial encounter (principal); S16.1XXA Strain of muscle, fascia and tendon at neck level, initial encounter; S39.012A Strain of muscle, fascia and tendon of lower back, initial encounter; S90.31XA Contusion of right foot, initial encounter; W22.03XA Walked into furniture, initial encounter; Y93.9 Activity, unspecified; Y92.009 Unspecified place in unspecified non-institutional (private) residence as the place of occurrence of the external cause; Y99.9 Unspecified external cause status; Y93.01 Activity, walking, marching and hiking; Z77.21 Contact with and (suspected) exposure to potentially hazardous body fluids; Z87.59 Personal history of other complications of pregnancy, childbirth and the puerperium
CPT/HCPCS: 73630; 99283

== ENCOUNTER → 2023-09-19 | Outpatient (CLI) | payer OTHER, SELFPAY ==
[2023-09-19 09:57] LABS: Absolute Lymphocyte Count 2.61 X10^3/uL (0.83-4.51); Absolute Neutrophil Count 3.7 X10^3/uL (2.0-7.7); Basophil# 0.07 X10^3/uL; Eosinophil# 0.24 X10^3/uL; Eosinophils% 3.4 % (0-5); Hematocrit 39.2 % (37-47); Hemoglobin 12.6 g/dL (12.0-15.0); Lymphocyte # 2.61 X10^3/ul (0.83-4.51); Lymphocyte % 36.7 % (19-41); Mean Corp Hgb Conc 32.1 g/dL (32-36); Mean Corpuscular Volume 90.1 fL (81-99); Mean Platelet Vol. 8.6 fl (6.2-12.0); Monocyte# 0.45 X10^3/uL; Monocyte% 6.3 % (0-10); NRBC Flagged by Analyzer 0 % (0-5); Neutrophil # 3.72 X10^3/uL (2.7-7.7); Neutrophil % 52.3 % (47-70); Platelet Count 304 K/mm3 (150-450); RBC Distribution Width CV 12.7 % (11.6-14.6); RBC Distribution Width SD 41.9 fl (35.1-43.9); Red Blood Count 4.35 M/mm3 (4.2-5.4); White Blood Count 7.1 K/mm3 (4.4-11.0)
[2023-09-19 10:21] LABS: Vitamin D,25 Hydroxy 23.2 ng/mL
[2023-09-19 10:56] LABS: ALB/GLOB Ratio 0.9 RATIO (0.9-2.4); AST(SGOT) 20 U/L (15-37); Alanine Aminotransfer ALT/SGPT 34 U/L (13-56); Albumin, Serum 3.4 g/dL (3.2-5.0); Alkaline Phosphatase 68 U/L (45-117); Anion Gap 2 (5-15); BUN 10 mg/dL (7-18); BUN/Creat Ratio 12.3 RATIO (10-20); Chloride 113 mmol/L (98-107); Cholesterol 210 mg/dL (200); Creatinine, Serum 0.81 mg/dL (0.55-1.02); EST Glomerular Filtration Rate 84 mL/min (>60); Est Glom Filt Rate - Afr Amer 102 mL/min (>60); Globulin 3.9 g/dL (2.2-4.2); Glucose 104 mg/dL (74-106); High Density Lipoprotein 41 mg/dL; Potassium 3.9 mmol/L (3.5-5.1); Protein, Total 7.3 g/dL (6.4-8.2); Sodium Level 140 mmol/L (136-145); Thyroid Stim Hormone (TSH) 1.55 uIU/mL (0.358-3.74); Triglycerides 170 mg/dL; Very Low Density Lipoprotein 34 mg/dL (5-40)
[2023-09-19 11:38] LABS: Hemoglobin A1c 5.5 % (3.8-5.6)
--- NOTE | 2023-09-19 14:37 | US_ITS ---
STUDY: ULTRASOUND OF THE FEMALE PELVIS - COMPLETE REASON FOR EXAM: Female, 38 years old. Bleeding LMP: July 18, 2023. TECHNIQUE: Transabdominal and Transvaginal TECHNICAL QUALITY: Adequate. COMPARISON: None. FINDINGS: The uterus is anteverted and is in a midline position. The uterus measures 9.1 cm x 5.2 cm x 3.8 cm. There is a Nabothian cyst of the cervix. The endometrium measures 3 mm in thickness, and is hyperechoic. There is no demonstrated endometrial mass. There is no demonstrated myometrial mass. I.U.D. - The patient does not have an I.U.D. The right ovary is visualized. The right ovary measures 4 cm x 3.6 cm x 2.8 cm. There is a 2.3 cm x 2.7 cm x 2.4 cm benign-appearing simple cyst. There is no visualized right adnexal mass or complex lesion. There is normal arterial and normal venous vascularity. The left ovary is visualized. The left ovary measures 2.4 cm x 1.9 cm x 1.2 cm. There is no left ovarian cyst or ovarian mass. There is no visualized left adnexal mass or complex lesion. There is normal arterial and normal venous vascularity. There is no fluid in the cul-de-sac. The pre void volume of the bladder was 325 ml. US/Pelvic w/ Transvaginal IMPRESSION: 2.3 cm x 2.7 cm x 2.4 cm benign-appearing simple cyst in the right ovary. Electronically Signed: Ian Cox MD at 15:31 EST ,
--- OUTSIDE RECORDS SUMMARY | 2023-09-19 15:40 | XMS RPT_ITS | CCD ---
Author Name Unknown Address [address] [facility] [address] [place] [address] Organization [facility] Care Team Providers Care Electronic Video Games Servicer Name Role Phone TIM MARADIAGA Unavailable Unavailable HRICS, COLT Unavailable Unavailable TIM MARADIAGA Unavailable Unavailable KAREN ARAIZA Unavailable Unavailable IMCA Unavailable Unavailable PLAYL GINNA Unavailable Unavailable Problems Problem Classification Problem Date Documented Da te Episodic/Chronic Hemorrhage during ; abruptio placenta; placenta previa (2 sources) Threatened ; Translations: [Threatened miscarriage] Onset: 07-17-2018 Episodic Unclassified (1 source) Unknown / UNK(Unknown) Onset: 07-17-2018 Results Test Name Value Interpretation Reference Range Facil ity Encounters Encounter Date Encounter Type Care Provider Facility Start: 07-17-2018 End: 07-18-2018 Patient encounter procedure KAREN ARAIZA [facility] Start: 10-29-2017 End: 10-29-2017 Emergency department patient visit TIM MARADIAGA Facility:A Procedures Date Procedure Procedure Detail Performing Clinician Start: 02-06-2019 Ecg routine ecg w/le ast 12 lds i&r only Payers Date Payer Category Payer Private Health Insurance 11 Summary Purpose Family History No Family History Records FoundNo Family History Records FoundNo Family History Records FoundNo Family History Records Found Advance Directives No Advanced Directives Records FoundNo Advanced Directives Records FoundNo Advanced Directives Records FoundNo Advanced Directives Records Found Hospital Course Note [facility] Patient Name: HAMLET GARCIA [id number] Date of : [address] [place], [place] [address] Unit Number: [id number] Discharge Summary Patient Status: ADM IN Attending Doctor: Sia Leos MD Service Date: 02/08/19 1211 Discharge Summary Admit Date Admission Date Time: 02/06/192047 Anticipated Discharge Date 02/08/19 Final Dx/Problem List 1. Pulmonary embolism Final diagnosis- --Acute PE secondary to NuvaRing --Left sided chest pain and shoulder pain-acute --Reactive leukocytosis Chief Complaint/HPI Chest pain and shoulder pain Reason for Admission Acute PE Hospital Course Mrs. Garcia is a 33-year-old female with no significant past medical history. Patient presented to the emergency department yesterday for complaints of chest pain and shortness of breath. CTA of the chest done in the emergency department confirmed emboli identified in segmental and subsegmental pulmonary arteries and the lingual and left lower lobe. There are (more content not included)... Additional Source Comments INFORMATION SOURCE (unrecogn ized section and content) DATE CREATED AUTHOR AUTHOR'S ORGANIZ ATION 08/05/2018 [facility] DATE CREATED AUTHOR AUTHOR'S ORGANIZ ATION 08/05/2018 [facility] DATE CREATED AUTHOR AUTHOR'S ORGANIZ ATION 03/21/2019 [facility] ramesh Harris FOR RECORDS PERTAINING TO PATIENTS WHO ARE OR HAVE BEEN ENROLLED IN A CHEMICAL DEPENDENCY/SUBSTANCEABUSE PROGRAM, SOME INFORMATION MAY BE OMITTED. This clinical summary was aggregated from multiple sources. Caution should be exercised in using it in the provision of clinical care. This summary normalizes information from multiple sources, and as a consequence, information in this document may materially change the coding, format and clinical context of patient data. In addition, data may be omitted in some cases. CLINICAL DECISIONS SHOULD BE BASED ON THE PRIMARY CLINICAL RECORDS. [facility]. provides no warranty or guarantee of the accuracy or completeness of information in this document.
[2023-09-20 04:08] LABS: Thyroid Peroxidase AB < 9 IU/mL (0-34)
== END | disposition home or self-care (01) ==
PROVIDERS: PCP Family Medicine; Referring Provider Nurse Practitioner Women's Health; Visit Provider Nurse Practitioner Women's Health
DX: Z00.00 Encounter for general adult medical examination without abnormal findings (principal); L70.9 Acne, unspecified; N92.0 Excessive and frequent menstruation with regular cycle; Z13.220 Encounter for screening for lipoid disorders; Z13.29 Encounter for screening for other suspected endocrine disorder; Z13.1 Encounter for screening for diabetes mellitus; Z13.21 Encounter for screening for nutritional disorder; N83.201 Unspecified ovarian cyst, right side
CPT/HCPCS: 36415; 76830; 76856; 80053; 80061; 82306; 82947; 83036; 84439; 84443; 85025; 86376

== ENCOUNTER → 2024-07-28 | Outpatient (CLI) | payer OTHER, SELFPAY ==
[2024-08-04 14:08] LABS: HPV APTIMA, High Risk Negative (Negative)
== END | disposition home or self-care (01) ==
LOC: BWCLAB 10:10 → LABSPEC 11:36
PROVIDERS: PCP Family Medicine; Referring Provider Advanced Practice Midwife; Visit Provider Advanced Practice Midwife
DX: N92.0 Excessive and frequent menstruation with regular cycle (principal)
CPT/HCPCS: 87624; 88175; G0145

== ENCOUNTER → 2025-02-05 | Outpatient (CLI) | payer OTHER, SELFPAY ==
[2025-02-05 15:56] LABS: Absolute Lymphocyte Count 3.19 X10^3/uL (0.83-4.51); Basophil# 0.09 X10^3/uL; Basophil% 0.8 % (0-1); Eosinophil# 0.09 X10^3/uL; Eosinophils% 0.8 % (0-5); Hematocrit 39.8 % (37-47); Lymphocyte # 3.19 X10^3/ul (0.83-4.51); Mean Corp Hgb Conc 32.7 g/dL (32-36); Mean Corpuscular Hgb 30.2 pg (27.0-32.0); Mean Corpuscular Volume 92.3 fL (81-99); Mean Platelet Vol. 9.2 fl (6.2-12.0); Monocyte# 0.63 X10^3/uL; Monocyte% 5.7 % (0-10); NRBC Flagged by Analyzer 0 % (0-5); Neutrophil # 6.96 X10^3/uL (2.7-7.7); Neutrophil % 63.3 % (47-70); Platelet Count 382 K/mm3 (150-450); RBC Distribution Width CV 11.9 % (11.6-14.6); RBC Distribution Width SD 40.4 fl (35.1-43.9); Red Blood Count 4.31 M/mm3 (4.2-5.4)
[2025-02-05 16:23] LABS: ALB/GLOB Ratio 1.4 RATIO (0.9-2.4); AST(SGOT) 16 U/L (<=31); Alanine Aminotransfer ALT/SGPT 12 U/L (<=34); Albumin, Serum 4.2 g/dL (3.5-5.0); Alkaline Phosphatase 62 U/L (35-104); Anion Gap 12 (5-15); BUN 7 mg/dL (4-19); BUN/Creat Ratio 9.1 RATIO (10-20); Calcium,Total 9.6 mg/dL (7.6-11.0); Carbon Dioxide 21.7 mmol/L (21.0-32.0); Chloride 105 mmol/L (98-108); Cholesterol 215 mg/dL (<=200); Creatinine, Serum 0.82 mg/dL (0.70-1.20); EST Glomerular Filtration Rate 94 (>60); Globulin 2.9 g/dL (2.2-4.2); Glucose 93 mg/dL (70-99); High Density Lipoprotein 45 mg/dL; Low Density Lipoprotein Calc. 111 mg/dL; Potassium 4.1 mmol/L (3.3-5.1); Protein, Total 7.2 g/dL (5.9-8.4); Sodium Level 138 mmol/L (133-145); Total Bilirubin 0.31 mg/dL (0.00-1.30); Triglycerides 293 mg/dL; Very Low Density Lipoprotein 59 mg/dL (5-40); Vitamin B12 356 pg/mL (180-914); Vitamin D,25 Hydroxy 35.6 ng/mL (30-100); cholesterol:hdl ratio screen 4.76
[2025-02-11 08:09] LABS: Anti-Thyroglobulin AB < 1.0 IU/mL (0.0-0.9); Thyroglobulin, Serum Qt. 113.2 ng/mL (1.5-38.5); Thyroid Peroxidase AB < 9 IU/mL (0-34); Thyroid Stim Immunoglob <0.10 IU/L (0.00-0.55)
== END | disposition home or self-care (01) ==
PROVIDERS: PCP Family Medicine; Referring Provider Family Medicine; Visit Provider Family Medicine
DX: E66.01 Morbid (severe) obesity due to excess calories (principal); R53.83 Other fatigue; E01.0 Iodine-deficiency related diffuse (endemic) goiter
CPT/HCPCS: 80053; 80061; 82306; 82607; 84432; 84439; 84443; 84445; 85025; 86376; 86800

== ENCOUNTER → 2025-02-12 | Outpatient (CLI) | payer OTHER, SELFPAY ==
--- NOTE | 2025-02-12 11:25 | US_ITS ---
PROCEDURE: THYROID 02/12/2025 REASON FOR EXAM: THYROMEGALY TECHNIQUE: Grayscale and color imaging of the thyroid gland. COMPARISON: None. FINDINGS: Right thyroid lobe size: 4.2 cm L by 2.0 cm AP x 2.2 cm T Left thyroid lobe size: 3.7 cm 1.2 cm AP by 1.4 cm T Isthmus: 1.8 mm Background parenchymal echotexture is homogeneous. Nodules: Right nodule 1. Lobe: Upper pole, Location: 2.2, Size: Cm, Composition: Almost completely solid Echogenicity: Isoechoic Margin: Smooth (+0) Shape: Wider than tall Echogenic Foci: None. TI-RADS: TR 3 mildly suspicious ultrasound follow-up recommended at 1 year, 3 year and 5 year Right nodule 2. Lobe: Right, Location: Mid upper, Size: 1.1 cm, Composition: Almost completely solid Echogenicity: Hypoechoic Margin: Smooth (+0) Shape: Wider than tall Echogenic Foci: None. TI-RADS: TR 4 moderately suspicious. Ultrasound follow-up recommended Right nodule 3 lobe: Right, Location: Lower pole, Size: 1.2 cm, Composition: Almost completely solid Echogenicity: Hypoechoic Margin: Smooth Shape: Wider than tall Echogenic Foci: None. TI-RADS: TR 4 moderately suspicious. Ultrasound follow-up recommended Left nodule 1. Lobe: Left, Location: Lower pole, Size: 0.7 cm, Composition: Solid or almost completely solid (+2) Echogenicity: Isoechoic Margin: Smooth (+0) Shape: Wider than tall Echogenic Foci: None. TI-RADS: TR 3 mildly suspicious but no follow-up recommended US/Thyroid IMPRESSION: Normal size thyroid gland with 4 nodules, 3 on the right and 1 on the left. TR 4 moderately suspicious. Ultrasound follow-up recommended. Follow in 1 yea r RECOMMENDATION: Based on most suspicious nodule. Nodule size = largest diameter Only evaluate nodule if =>5 mm. Growth > 20% in 2 dimensions = worsening. Follow up to 4 nodules. Recommend biopsy for no more than 2 nodules. Reading [facility]
== END | disposition home or self-care (01) ==
LOC: US 11:24
PROVIDERS: PCP Family Medicine; Referring Provider Family Medicine; Visit Provider Family Medicine
DX: E01.0 Iodine-deficiency related diffuse (endemic) goiter (principal)
CPT/HCPCS: 76536

== ENCOUNTER → 2025-04-23 | Outpatient (CLI) | payer OTHER, SELFPAY ==
--- NOTE | 2025-04-23 07:28 | US_ITS ---
PROCEDURE: HEAD/NECK SOFT TISSUE 04/23/2025 REASON FOR EXAM: LYMPH NODE MAPPING TECHNIQUE: HEAD/NECK SOFT TISSUE COMPARISON: None FINDINGS: Lymph node mapping was performed. The largest lymph node is in the right side of the neck in zone 2. This measures 3.3 cm x 1.9 cm x 0.6 cm. US/Head/Neck Soft Tissue IMPRESSION: 3.3 cm x 1.9 cm x 0.6 cm lymph node in zone 2 on the right side of the neck. Reading Location: [id number]
--- OUTSIDE RECORDS SUMMARY | 2025-04-23 07:31 | XMS RPT_ITS | CCD ---
Author Organization [facility] CliniSyva Care Team Providers Care Casting Agent Name Role Phone SOMMER FLYNN Unavailable Unavailable HRICS COLT Unavailable Unavailable SOMMER FLYNN Unavailable Unavailable KAREN AARIZA Unavailable Unavailable IMCA Unavailable Unavailable PLAYL GINNA Unavailable Unavailable Dr. Sommer Flynn Referring Provider [phone] Vance DIRECTOR OF CATERING, WAN Galarza Attending Provider [phone] Sommer Flynn MD Primary Care Provider Sommer Flynn MD Primary Care Provider GÓMEZ YOUNGER Attending Unavailable SOMMER FLYNN Primary Care Unavailable GÓMEZ YOUNGER Attending Unavailable SOMMRE FLYNN Primary Care Unavailable Dr. Sommer Flynn MD Primary Care Provider Assessment, Health Risk Attending Provider Unava ilable Assessment, Health Risk Referring Provider Unava ilable Dr. Ortega Medrano MD Primary Care Provider Dr. Ortega Medrano MD Attending Provider Dr. Ortega Medrano MD Referring Provider [phone] Sommer Flynn MD Primary Care Provider Ortega Medrano MD Primary Care Provider SOMMER FLYNN Primary Care Unavailable BALTAZAR COURTNEY Attending Unavailable ORTEGA MEDRANO Primary Care Unavailable BALTAZAR COURTNEY Attending Unavailable BALTAZAR COURTNEY Referring Unavailable ORTEGA MEDRANO Primary Care Unavailable Dr. Gómez Casiano MD Attending Provider Ortega Medrano Attending Unavailable Ortega Medrano Referring Unavailable Ortega Medrano Primary Care Unavailable Ortega Medrano Primary Care Unavailable Ortega Medrano Referring Unavailable Gómez Casiano Attending Unavailable Mirande, Sommer Referring Unavailable Mirande, Sommer Primary Care Unavailable Lali Gallagher Attending Unavailable Lali Gallagher Attending Unavailable Lali Gallagher Referring Unavailable Mirande, Sommer Primary Care Unavailable Assessment, Health Risk Referring Unavaila ble Mirande, Sommer Primary Care Unavailable Assessment, Health Risk Attending Unavaila ble Assessment, Health Risk Referring Unavaila ble Mirande, Sommer Primary Care Unavailable Assessment, Health Risk Attending Unavaila ble Assessment, Health Risk Referring Unavaila ble Mirande, Sommer Primary Care Unavailable Assessment, Health Risk Attending Unavaila ble Mirande, Sommer Primary Care Unavailable Mirburake, Sommer Attending Unavailable Ortega Medrano Primary Care Unavailable Ortega Medrano Attending Unavailable Ortega Medrano Referring Unavailable Medications Current Medications Medication Drug Class(es) Dates Sig (Normalized) Sig (Original) amoxicillin 875 mg / clavulanate 125 mg oral tablet (2 sources) Penicillin-class Antibacterial Start: 07-30-2024 End: 08-04-2024 take 1 tablet by mouth twice daily amoxicillin-clavu lanate potassium (AUGMENTIN) 875-125 mg per tablet Indications: Acute non-recurrent sinusitis, unspecified location Take 1 tablet by mouth two times a day for 5 days. 10 tablet 07/30/2024 08/04/2024 Active Start: 07-07-2024 End: 07-17-2024 take 1 tablet by mouth twice daily amoxicillin-clavulanate (Augmentin) 875-125 MG tablet Take 1 tablet by mouth 2 times daily for 10 days. 20 tablet 07/07/2024 07/17/2024 Active cholecalciferol 0.01 mg oral capsule (6 sources) Vitamin D Start: 07-28-2024 take 1 capsule by mouth once daily Cholecalciferol (Vitamin D3) 10 mcg (400 unit) capsule Active 10 ug PO daily July 28, 2024 1:00am take 1 tablet by mouth once ru y cholecalciferol (VITAMIN D-3) 50 mcg (2,000 unit) tablet Take 2,000 Units by mouth once daily. Active DULoxetine 60 mg delayed release oral capsule (4 sources) Serotonin and Norepinephrine Reuptake Inhibitor Start: 07-25-2023 take 1 capsule by mouth once daily Duloxetine 60 mg capsule,delayed release(DR/EC) Active 60 mg PO DAILY July 25, 2023 1:00am FLUoxetine 40 mg oral capsule (8 sources) Serotonin Reuptake Inhibitor Start: 11-28-2024 take 1 capsule by mouth once daily FLUoxetine (PROZAC) 40 mg capsule Take 40 mg by mouth once daily. 11/28/2024 Active Start: 06-27-2024 FLUoxetine (MA OZAC) 20 mg capsule Take 20 mg by mouth. 06/27/2024 Active hydrOXYzine pamoate 25 mg oral capsule (3 sources) Antihistamine Start: 01-09-2025 take 1 capsule by mouth every eight hours as needed hydrOXYzine pamoate (VISTARIL) 25 mg capsule Take 25 mg by mouth every 8 hours as needed for anxiety. 01/09/2025 Active Multiple Vitamin (multivitamin) capsule (2 sources) take 1 capsule by mouth once daily Multiple Vitamin (multivitamin) capsule Take 1 capsule by mouth daily. Active SLYND 4 mg (28) tabet (4 sources) Start: 07-01-2024 take 1 tablet by mouth once daily SLYND 4 mg (28) tabet Take 1 tablet by mouth once daily. 07/01/2024 Active VITAMIN D PO (2 sources) VITAMIN D PO Hansel e by mouth. Active Completed/Discontinued Medications Medication Drug Class(es) Dates Sig (Normalized) Sig (Original) Blood Pressure Test Kit-Large (1 source) Start: 04-02-2020 End: 07-08-2020 Blood Pressure Test Kit-Large Discontinued 0 .ROUTE .MEDSUPPLY 1 April 01, 2020 11:00pm July 08, 2020 3:00pm As directed Blood Pressure Test Kit-Large kit (3 sources) Start: 04-02-2020 End: 07-08-2020 Blood Pressure Test Kit-Large kit Discontinued 0 .ROUTE .MEDSUPPLY 1 0 April 02, 2020 12:00am July 08, 2020 4:00pm As directed Start: 04-02-2020 End: 07-08-2020 Blood Pressure Test Kit-Larg e kit Discontinued 0 .ROUTE .MEDSUPPLY 1 April 02, 2020 12:00am July 08, 2020 4:00pm As directed Breast Pump mynor (2 sources) Start: 01-20-2015 End: 07-30-2024 Breast Pump mynor Indications : Interruption in breast feeding Use as needed. 1 Device 0 01/20/2015 07/30/2024 Discontinued Start: 01-15-2015 End: 07-30-2024 Breast Pump mynor Indications : Interruption in breast feeding Use as needed 1 Device 0 01/15/2015 07/30/2024 Discontinued OLIVEIRA'S YEAST ORAL (1 source) End: 07-30-2024 take 8 tablets by mouth once daily OLIVEIRA'S YEAST ORAL Take 8 tablets by mouth once daily. 07/30/2024 Discontinued citalopram 20 mg oral tablet (8 sources) Serotonin Reuptake Inhibitor Start: 03-25-2020 End: 07-25-2023 take 1 tablet by mouth once daily Citalopram 20 MG tablet Discontinued 20 mg PO DAILY May 27, 2020 7:26am July 25, 2023 10:02am anxiety and depression drospirenone 4 mg oral tablet (18 sources) Progestin Start: 07-25-2023 End: 01-01-2025 take 1 tablet by mouth once daily Drospirenone (Contraceptive) (Slynd) 4 mg (28) tablet Discontinued 1 {tbl} PO DAILY September 15, 2024 10:04am January 01, 2025 2:37pm Encounter for contraceptive management Encounter for contraceptive management, unspecified 0.4 ml enoxaparin sodium 100 mg/ml prefilled syringe (4 sources) Low Molecular Weight Heparin Start: 01-28-2020 End: 07-08-2020 Enoxaparin (Lovenox) 40 mg/0.4 mL syringe Discontinued 40 mg SC DAILY January 28, 2020 12:00am July 08, 2020 4:00pm coag disorder fenugreek seed extract 500 mg cap (1 source) End: 07-30-2024 fenugreek seed extract 500 mg cap Take by mouth. 07/30/2024 Discontinued ferrous sulfate 325 mg oral tablet (4 sources) Start: 04-02-2020 End: 07-08-2020 Ferrous Sulfate 325 MG tablet Discontinued 1 {tbl} PO DAILY April 02, 2020 12:00am July 08, 2020 4:00pm anemia naproxen 500 mg oral tablet (4 sources) Nonsteroidal Anti-inflammatory Drug Start: 05-07-2021 End: 07-25-2023 take 1 tablet by mouth twice daily as needed Naproxen 500 MG tablet Discontinued 500 mg PO TWICE DAILY NEEDED May 07, 2021 12:00am July 25, 2023 10:02am NIFEdipine 30 mg osmotic 24 hr extended release oral tablet (8 sources) Dihydropyridine Calcium Channel Braden Start: 04-05-2020 End: 05-28-2020 take 1 tablet by mouth once daily Nifedipine 30 MG tablet extended release 24hr Discontinued 30 mg PO DAILY May 27, 2020 7:26am May 28, 2020 7:43am blood pressure nitrofurantoin, macrocrystals 25 mg / nitrofurantoin, monohydrate 75 mg oral capsule (4 sources) Nitrofuran Antibacterial Start: 11-09-2019 End: 11-16-2019 take 1 capsule by mouth every twelve hours at mealtime Nitrofurantoin Monohyd/M-Cryst (Macrobid) 100 mg capsule Discontinued 1 NMA PO Q12H 14 7 0 November 09, 2019 12:00am November 15, 2019 12:00am November 16, 2019 12:07am administer with a meal/food; swallow whole; do not open, crush, dissolve , or chew norethindrone 0.35 mg oral tablet (1 source) Start: 06-15-2015 End: 07-30-2024 take 1 tablet by mouth once daily Norethindrone, Contraceptive, (ORTHO MICRONOR) 0.35 mg tablet Take 1 tablet by mouth once daily. 1 Package 12 06/15/2015 07/30/2024 Discontinued Lhaxoayg-Iv-Uxf-Fe-FA ( VITAMIN) tab (1 source) Start: 04-23-2014 End: 07-30-2024 take 1 tablet by mouth once daily Nqgbwxtk-Mo-Qmx-Fe -FA ( VITAMIN) tab Take 1 tablet by mouth once daily. 0 04/23/2014 07/30/2024 Discontinued rivaroxaban 20 mg oral tablet (4 sources) Factor Xa Inhibitor Start: 06-01-2019 End: 11-06-2019 take 1 tablet by mouth once daily Rivaroxaban 20 MG tablet Discontinued 20 mg PO DAILY June 01, 2019 12:00am November 06, 2019 9:02am sulfamethoxazole 800 mg / trimethoprim 160 mg oral tablet (4 sources) Dihydrofolate Reductase Inhibitor Antibacterial, Sulfonamide Antimicrobial Start: 06-01-2019 End: 11-06-2019 Sulfamethoxazole-T rimethoprim 1 TABLET tablet Discontinued 1 {tbl} PO TWICE A DAY 14 0 June 01, 2019 12:00am November 06, 2019 9:01am Start: 06-01-2019 End: 11-06-2019 take 1 tablet by mouth twice daily Sulfamethoxazole-Trimethoprim Discontinu ed 1 TABLET PO TWICE A DAY May 31, 2019 11:00pm November 06, 2019 8:01am Problems Active Problems Problem Classification Problem Date Documented Da te Episodic/Chronic Anal and rectal conditions (4 sources) Perianal abscess; Translations: [Anal abscess] Onset: 07-29-2024 07-07-2024 Episodic Contraceptive and procreative management (3 sources) Patient encounter status; Translations: [Encounter for contraceptive management, unspecified] 01-06-2025 Episodic Comment on above: Slynd approval -12/31/25 Deficiency and other anemia (4 sources) Iron deficiency anemia; Translations: [Iron deficiency anemia, unspecified] 07-08-2020 Episodic Diabetes mellitus without complication (4 sources) Abnormal glucose tolerance test; Translations: [Other abnormal glucose] 07-08-2020 Episodic Comment on above: 3hrGTT- normal Hemorrhage during ; abruptio placenta; placenta previa (2 sources) Threatened ; Translations: [Threatened miscarriage] Onset: 07-17-2018 Episodic Hypertension complicating ; childbirth and the puerperium (4 sources) Elevated blood pressure; Translations: [Unspecified maternal hypertension, third trimester] 07-08-2020 Chronic Comment on above: on procardia XL ru y, recommend IOL 37 weeks Menstrual disorders (6 sources) Menorrhagia; Translations: [Excessive and frequent menstruation with regular cycle] Onset: 08-26-2024 07-25-2023 Chronic Comment on above: US, slynd Other complications of ; puerperium affecting management of mother (4 sources) Vaginal varices in the puerperium; Translations: [Other venous complications in the puerperium] 04-02-2020 Episodic Comment on above: in previous pregnanc y Other complications of (4 sources) Maternal obesity complicating , childbirth and the puerperium, antepartum; Translations: [Obesity complicating , unspecified trimester] 07-08-2020 Chronic Comment on above: BMI 34- glucola nl a t NOB, encouraged healthy weight gain. Growth US normal Other complications of (4 sources) H/O: miscarriage; Translations: [Supervision of with other poor reproductive or obstetric history, unspecified trimester] 07-08-2020 Episodic Comment on above: Baby ASA Other complications of (4 sources) High risk ; Translations: [Supervision of high risk , unspecified, unspecified trimester] 07-08-2020 Episodic Comment on above: PRR SKYLA: girl Izzy PC: [place] Spouse: [place]berth Other complications of (4 sources) Asymptomatic bacteriuria in ; Translations: [Asymptomatic bacteriuria during ] 07-08-2020 Episodic Comment on above: macrobid. repeat uri ne culture negative Other complications of (4 sources) Depressive disorder; Translations: [Other mental disorders complicating , third trimester] 07-08-2020 Episodic Comment on above: celexa started 03/24. counseling encouraged. Other complications of (4 sources) History of pre-eclampsia; Translations: [Supervision of with other poor reproductive or obstetric history, unspecified trimester] 07-08-2020 Episodic Comment on above: Baby ASA; baseline l abs nl. Other nutritional; endocrine; and metabolic disorders (4 sources) Body mass index 30+ - obesity; Translations: [Body mass index (BMI) 32.0-32.9, adult] Onset: 05-25-2014 Chronic Other nutritional; endocrine; and metabolic disorders (1 source) Morbid (severe) obesity due to excess calories; Translations: [Morbid (severe) obesity due to excess calories] Onset: 03-25-2025 Chronic Other and delivery including normal (8 sources) ; Translations: [Encounter for supervision of normal , unspecified, unspecified trimester] Onset: 09-17-2014 Resolved: 12-17-2014 07-08-2020 Episodic Comment on above: genetic-low risk, de clines carrier and Afp screening. Other skin disorders (4 sources) Acne; Translations: [Acne, unspecified] 07-25-2023 Episodic Other skin disorders (1 source) Acne, unspecified; Translations: [Other acne] 07-25-2023 Episodic Other upper respiratory infections (1 source) Acute sinusitis; Translations: [Acute sinusitis, unspecified] 07-30-2024 Episodic Phlebitis; thrombophlebitis and thromboembolism (5 sources) Deep venous thrombosis; Translations: [Acute embolism and thrombosis of unspecified deep veins of unspecified lower extremity] 07-25-2023 Episodic Comment on above: 2019 Polyhydramnios and other problems of amniotic cavity (16 sources) Subchorionic hematoma; Translations: [Other specified disorders of amniotic fluid and membranes, first trimester, not applicable or unspecified] Onset: 10-05-2014 Resolved: 12-17-2014 03-11-2020 Episodic Comment on above: 11/05 resolving. Rest art ASA and lovenox weekly NST. Del at 3 7 wk RESOLVED Prolapse of female genital organs (3 sources) Disorder of rectum; Translations: [Rectocele] 10-22-2023 Chronic Comment on above: colon& Rectal Surger y referral, Dr. Martin Vasquez Pulmonary heart disease (4 sources) Pulmonary embolism; Translations: [Other pulmonary embolism without acute cor pulmonale] 07-08-2020 Episodic Comment on above: prophylactic lovenox 40 mg BID this and plan 6 weeks PP. 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 disease] 04-02-2020 Episodic Comment on above: Hetero Skin and subcutaneous tissue infections (4 sources) Abscess; Translations: [Cutaneous abscess, unspecified] 06-02-2019 Episodic Sprains and strains (8 sources) Lower back injury; Translations: [Strain of muscle, fascia and tendon of lower back, initial encounter] 05-15-2021 Episodic Superficial injury; contusion (4 sources) Contusion of right foot; Translations: [Contusion of right foot, initial encounter] 05-15-2021 Episodic Thyroid disorders (5 sources) Multinodular goiter; Translations: [Nontoxic multinodular goiter] Onset: 02-18-2025 03-13-2025 Chronic Unclassified (1 source) Unknown / UNK(Unknown) Onset: 07-17-2018 Unclassified (1 source) Consult Onset: 03-09-2025 Past or Other Problems Problem Classification Problem Date Documented Da te Episodic/Chronic Hypertension complicating ; childbirth and the puerperium (4 sources) -induced hypertension; Translations: [Gestational [-induced] hypertension without significant proteinuria, unspecified trimester] Onset: 10-22-2014 Resolved: 12-17-2014 12-17-2014 Episodic Other complications of ; puerperium affecting management of mother (4 sources) heart echogenicity on obstetric ultrasound scan; Translations: [ cardiac echogenic focus, antepartum] Onset: 05-25-2014 Resolved: 10-15-2014 10-15-2014 Episodic Unclassified (4 sources) No history of clinical finding in subject; Translations: [No significant past medical history] 07-25-2023 Results Test Name Value Interpretation Reference Range Facility Surgery Visit Reporton 04-17 Surgery Visit Report [facility] [address] [place] [address] OFFICE VISIT Date of Service: 04/17/25 MR#: [id number] Acct: [id number] Name: HAMLET TEIXEIRA Rep #: [id number] : 1985 Provider: Dr. Gómez pineda MD Age/Sex: 39/F Location: [facility] Status: Signed Intake Vital Signs 07/28/24 09:30 04/17/25 09:28 Height 5 ft 3 in 5 ft 3 in Weight: 227 lb 4 oz BMI 40.2 BP 136/87 H Blood Pressure Location Rt brachial Position Sitting Respiration 18 Pulse 63 Pulse Source Monitor Temp 98.5 F Temp Source Temporal Pulse Oximetry (%) 98 Oxygen Delivery Method room air Intake Visit Reasons: DISCUSS THYROID SX Chief Complaint: discuss thyroid sx Is patient in pain?: No Allergies No Known Allergies Allergy (Verified 04/17/25 09:29) Medications ???Medication ???Instructions ???Recorded ???Confirmed ???Type duloxetine 60 mg capsule,delayed 60 mg PO DAILY 07/25/23 04/17/25 H istory release cholecalciferol (vitamin D3) 10 10 mcg PO QDAY 07/28/24 04/17/25 H istory mcg (400 unit) capsule drospirenone (contraceptive) 4 mg 1 tab PO DAILY #84 tabs 01/01/25 04/17/25 Rx (28) tablet (Slynd) [facility] Medical History (Updated 04/17/25 @ 15:[address] Gómez Casiano MD) Thyroid nodule DVT (deep venous thrombosis) Bilateral pulmonary embolism History of miscarriage, currently Perianal abscess Exposure to blood Surgical History History of laparoscopic cholecystectomy Family History Grandmother Breast cancer Grandfather No problems noted. 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 They are referred for surgical consultation from PCP, Dr. Medrano and surgeon, Dr. Courtney. Mrs. Teixeira shares that her nodule was first found during routine physical exam with her primary care provider. She then proceeded to follow-up with Dr. Courtney who recommended biopsy despite radiology's ultrasound impression due to her overall picture. She underwent biopsy of a right superior and right inferior nodule with Crosby 5 and 3 ratings, respectively. The latter nodule then underwent Afirma testing with a benign diagnosis They do not experience difficulty with swallowing. They do not complain of a new cough. They do not appreciate new voice changes. They do have a history of snoring/sleep apnea. Additionally, their weight has been steadily increasing and they report they are at their heaviest of all time. There also is a history of significant recent fatigue. Mrs. Teiexira declares that she awakens feeling unrefreshed and suffers from frequent nighttime awakenings. They also report a history of heavy sweating and have a history of heat intolerance. Other symptoms include: Pertinent negatives: Denial of palpitations, denial of hair or skin changes. They are somewhat unclear of their family history but believe her mother has a history of thyroid pathology requiring surgery. There is no history of prior radiation exposure. Previous work-up has included thyroid ultrasound. This study was performed on 02/12/2025 and showed a right thyroid lobe measuring 4.2 x 2.0 x 2.2 cm. Within this lobe radiology identified 3 nodules measuring 2.2, 1.1, and 1.1 cm. These nodules were rated as TI-RADS 3, TI-RADS 4, and TI-RADS 4, respectively. The left thyroid lobe measured 3.7 x 1.2 x 1.4 cm. Within this lobe radiology identified a nodule measuring 0.7 cm in greatest dimension rated TI-RADS 3. Other tests include: TSH: 1.84, free T4: 1.00 ROS General General: Yes weight change and fatigue; No appetite, colon cancer, breast cancer or weakness HEENT HEENT: Yes swollen glands; No difficulty swallowing, eye injury, eye surgery or hoarseness Endo Endocrine: Yes thyroid disease and thyroid cancer; No diabetes mellitus, Hair loss, heat intolerance or cold intolerance Skin Skin: No rash or changing moles Musc Musculoskeletal: No back problems, arth (more content not included)... Normal [facility] THYROID FNA ANALYSISo n 03-16-[address] [facility] Comment on above: Order Comment: Speci men Type: SPECIMEN OBTAINED BY ASPIRATION Ordering Facility: [facility] Address: [address] [place] [address] Result Comment: View results in Scanned Documents link when available. Performed By: #### A EVETTE #### [facility] CLIA [id number] [address] [place] [address] [place] [address] [place] CNOVon 03-16-2025 CNOV Office Visit (GENSWS ) HAMLET TEIXEIRA ([id number]) 1985 [facility] Date Time Provider Department 03/16/25 1:30 PM BALTAZAR COURTNEY During your visit today, we recorded the following information about you: Amirah Nice RN 03/16/2025 1:34 PM Signed UNIVERSAL PROTOCOL / SAFETY CHECKLIST Procedure to be Performed: Ultrasound Guided Fine Needle Aspiration Thyroid right times two Sign In: A Moment of CARE was completed. Appropriate PPE (Personal Protective Equipment) worn by all providers involved with the procedure. Special equipment utilized .Ultrasound Patient/Surrogate Stated/Verified: Patient name, Date of , Relevant allergies, and The intended procedure Time Out: Relevant labs, photos, and/or imaging studies have been reviewed. Intended patient and procedure match the source document(s) (e.g. consent, HANDP, associated studies [imaging, pathology]) match the intended patient and procedure. Consent obtained and matches the intended procedure. Yes. Correct side/site has been marked and visible. Medications required for this procedure are verified. Fire risk assessed and interventions discussed. Implants: are not applicable. Sign Out: Specimens are all correctly labeled and sent. All instruments, equipment, possible retained foreign bodies are accounted for. Yes. The post-procedure plan of care has been communicated to the patient or surrogate. Amirah Nice RN 03/16/2025 1:44 PM Signed The following instructions are important for you related to your office visit today with the [facility]. Instructions After THYROID FINE NEEDLE ASPIRATION Please do not take aspirin or other blood thinners for the next few days. If you have bleeding from the needle site, hold pressure with a clean gauze. If the bleeding continues, contact our office immediately. I recommend taking Advil or Tylenol for the discomfort. An ice pack may improve your discomfort to the area. Contact our office immediately if you have any questions or concerns @ [phone]. Please make an appointment to follow up in one week with your physician and thank you for choosing the [facility]. If you note any additional difficulties, questions, or concerns, you should contact our office immediately @ [phone] and ask to be transferred to the General Surgery department. Baltazar Courtney MD 03/17/2025 9:48 AM Addendum Preoperative diagnosis: Multinodular goiter Postoperative diagnosis: The same Procedure: Ultrasound-guided fine-needle aspiration of 2 dominant right sided thyroid nodules Surgeon: Sudhir Procedure: Ultrasound of the right thyroid gland in the lower pole revealed the nodule in question. I prepped the skin with alcohol. I injected 1% lidocaine plain. Under ultrasound guidance I took 3 passes with a 22-gauge needle and plated these on glass slides and sent to an Afirma test. The mid-upper pole was then identified. Through the same area that I injected local I once again did 3 passes under ultrasound guidance through the mid-upper pole nodule. I plated these on glass slides and sent an Afirma test. Sterile dressings were applied and the patient tolerated the procedure well. Amirah Nice RN 03/16/2025 2:01 PM Signed Addended by: AMIRAH NICE on: 03/16/2025 02:01 PM Modules accepted: Orders Amirah Nice RN 03/16/2025 2:03 PM Signed Addended by: AMIRAH NICE on: 03/16/2025 02:03 PM Modules accepted: Orders Referring Provider: BALTAZAR COURTNEY [[id number]] Allergies As of Date: 03/16/2025 (No Known Allergies) Date Reviewed: 03/09/2025 Reviewed by: Yelitza Whitlock LPN - Fully Assessed Primary Visit Diagnosis:Multinodular goiter [E04.2] Order(s):US THYROID BIOPSY RIGHT (POC) SURG USE ONLY [7168332] Order #: [id number]. #:[id number]: 1 CYTOLOGY NON-VETERINARY HOSPITAL ATTENDANT [[id number]] Order #: [id number]. #:[id number] CYTOLOGY NON-VETERINARY HOSPITAL ATTENDANT [[id number]] Order #: [id number]. #:[id number] Prescriptions as of 03/17/2025 - FLUoxetine (PROZAC) 40 mg capsule Take 40 mg by mouth once daily. - hydrOXYzine pamoate (VISTARIL) 25 mg capsule Take 25 mg by mouth every 8 hours as needed for anxiety. - cholecalciferol (VITAMIN D-3) 50 mcg (2,000 unit) tablet Take 2,000 Units by mouth once daily. - SLYND 4 mg (28) tabet Take 1 tablet by mouth once daily. - FLUoxetine (PROZAC) 20 mg capsule Take 20 mg by mouth. Problem List As Of Date 03/16/2025 Noted Resolved BMI 32.0-32.9,adult [Z68.32] 05/25/2014 cardiac echogenic focus, antepartum [O35.*05/25/2014 10/15/2014 Supervision of normal first [Z34.00] 09/17/2014 12/17/2014 Polyhydramnios, antepartum [O40.9XX0] 10/05/2014 12/17/2014 Gestational hypertension [O13.9] 10/22/2014 12/17/2014 premature rupture of membranes [O42.919]11/01/2014 12/17/2014 Other instructions fr (more content not included)... Normal [facility] CYTOLOGY NON-GYNon [address] [facility] Comment on above: Order Comment: Speci men Type: SPECIMEN OBTAINED BY ASPIRATION Ordering Facility: [facility] Address: [address] [place] [address] Result Comment: Darrin sarah Developed Test (LDT) Disclaimer: Performance characteristics of immunohistochemical, immunofluorescent, and chromogenic in-situ hybridization tests have been determined by the performing laboratory within [facility]'s [facility] Pathology and Laboratory Medicine Department ([facility], [facility], [facility], [facility], [facility], [facility], or [facility]) in a manner consistent with CLIA requirements. One or more of these tests may not have been cleared or approved by the FDA. RT-PLM is regulated under CLIA as qualified to perform high-complexity testing. These tests are used for clinical purposes. These should not be regarded as investigational or for research. Positive and negative controls stain appropriately. Performed By: #### C YTONON #### [facility] CLIA [id number] [address] [place] [address] [place] CASE REPORT Normal [facility] Comment on above: Order Comment: Speci men Type: SPECIMEN OBTAINED BY ASPIRATION Ordering Facility: [facility] Address: [address] [place] [address] Result Comment: [facility] Cytology Report Case: [id number] Authorizing Provider: Baltazar Courtney MD Collected: 03/16/2025 01:51 PM Ordering Location: General Surgery Received: 03/17/2025 07:18 AM Pathologist: Carlito Palma MD, PhD Specimens: A) - Thyroid, Right, Lobe, right lower lobe B) - Thyroid, Right, Lobe, right upper middle Performed By: #### C YTONON #### [facility] CLIA [id number] [address] [place] [address] [place] CLINICAL HISTORY thyroid nodules Normal [facility] Comment on above: Order Comment: Speci men Type: SPECIMEN OBTAINED BY ASPIRATION Ordering Facility: [facility] Address: [address] [place] [address] Result Comment: Afirma received for A, B Performed By: #### C YTONON #### [facility] CLIA [id number] [address] [place] [address] OF [facility] FINAL DIAGNOSIS Normal [facility] Comment on above: Order Comment: Speci men Type: SPECIMEN OBTAINED BY ASPIRATION Ordering Facility: [facility] Address: [address] [place] [address] Result Comment: A - Thyroid, Right, Lobe, FNA - right lower lobe Atypia of undetermined significance. (See comment) B - Thyroid, Right, Lobe, FNA - right upper middle Suspicious for papillary thyroid carcinoma. at 1256 EDT Performed By: #### C YTONON #### [facility] CLIA [id number] [address] [place] [address] [place] FINAL PERFORMING LAB Normal [facility] Comment on above: Order Comment: Speci men Type: SPECIMEN OBTAINED BY ASPIRATION Ordering Facility: [facility] Address: [address] [place] [address] Result Comment: Tech nical component, field research assistant screening performed at: [facility], [address] [place] [address] CLIA: [id number] Diagnostic interpretation performed at: [facility], [address] [place], [place] [address] CLIA# [id number] Electric Meter Installer Helper: Rashaun Tavera MD Performed By: #### C YTONON #### [facility] CLIA [id number] [address] [place] [address] [place] GROSS DESCRIPTION Normal [facility] Comment on above: Order Comment: Speci men Type: SPECIMEN OBTAINED BY ASPIRATION Ordering Facility: [facility] Address: [address] [place] [address] Result Comment: A. T hyroid, Right, Lobe 30 cc clear colorless CytoLyt . ThinPrep prepared and 8 smears. Afirma received B. Thyroid, Right, Lobe 30 cc clear light pink CytoLyt . ThinPrep prepared and 12 smears. Afirma received Performed By: #### C YTONON #### [facility] CLIA [id number] [address] [place] [address] [place] AP DISCLAIMER Normal [facility] Comment on above: Order Comment: Speci men Type: SPECIMEN OBTAINED BY ASPIRATION Ordering Facility: [facility] Address: [address] [place] [address] Result Comment: Darrin sarah Developed Test (LDT) Disclaimer: Performance characteristics of immunohistochemical, immunofluorescent, and chromogenic in-situ hybridization tests have been determined by the performing laboratory within [facility]'s [facility] Pathology and Laboratory Medicine Department ([facility], [facility], [facility], [facility], [facility], [facility], or [facility]) in a manner consistent with CLIA requirements. One or more of these tests may not have been cleared or approved by the FDA. RT-PLM is regulated under CLIA as qualified to perform high-complexity testing. These tests are used for clinical purposes. These should not be regarded as investigational or for research. Positive and negative controls stain appropriately. Performed By: #### C YTONON #### [facility] CLIA [id number] [address] [place] [address] [place] CASE REPORT Normal [facility] Comment on above: Order Comment: Speci men Type: SPECIMEN OBTAINED BY ASPIRATION Ordering Facility: [facility] Address: [address] [place] [address] Result Comment: [facility] Cytology Report Case: [id number] Authorizing Provider: Baltazar Courtney MD Collected: 03/16/2025 01:51 PM Ordering Location: General Surgery Received: 03/17/2025 07:18 AM Pathologist: Carlito Palma MD, PhD Specimens: A) - Thyroid, Right, Lobe, right lower lobe B) - Thyroid, Right, Lobe, right upper middle Performed By: #### C YTONON #### [facility] CLIA [id number] [address] [place] [address] CLINICAL HISTORY thyroid nodules Normal [facility] Comment on above: Order Comment: Speci men Type: SPECIMEN OBTAINED BY ASPIRATION Ordering Facility: [facility] Address: [address] [place] [address] Result Comment: Afirma received for A, B Performed By: #### C YTONON #### [facility] CLIA [id number] [address] [place] [address] [facility] Comment on above: Order Comment: Speci men Type: SPECIMEN OBTAINED BY ASPIRATION Ordering Facility: [facility] Address: [address] [place] [address] Result Comment: A - Thyroid, Right, Lobe, FNA - right lower lobe Atypia of undetermined significance. (See comment) B - Thyroid, Right, Lobe, FNA - right upper middle Suspicious for papillary thyroid carcinoma. at 1256 EDT Performed By: #### C YTONON #### [facility] CLIA [id number] [address] [place] [address] FINAL PERFORMING LAB Normal [facility] Comment on above: Order Comment: Speci men Type: SPECIMEN OBTAINED BY ASPIRATION Ordering Facility: [facility] Address: [address] [place] [address] Result Comment: Tech nical component, field research assistant screening performed at: [facility], [address] [place] [address] CLIA: [id number] Diagnostic interpretation performed at: [facility], [address] [place] [address], [place] [address] CLIA# [id number] Electric Meter Installer Helper: Rashaun Tavera MD Performed By: #### C YTJACQUES #### [facility] CLIA [id number] [address] [place] [address] [place] GROSS DESCRIPTION [facility] Comment on above: Order Comment: Speci men Type: SPECIMEN OBTAINED BY ASPIRATION Ordering Facility: [facility] Address: [address] [place] [address] Result Comment: A. T hyroid, Right, Lobe 30 cc clear colorless CytoLyt . ThinPrep prepared and 8 smears. Afirma received B. Thyroid, Right, Lobe 30 cc clear light pink CytoLyt . ThinPrep prepared and 12 smears. Afirma received Performed By: #### C CONCHIS #### [facility] CLIA [id number] [address] [place] [address] [place] US THYROID BIOPSY RIGHT (POC ) SURG USE ONLYon 03-16-2025 [facility] CNOVon 03-09-2025 CNOV Office Visit (GENSWS ) HAMLET TEIXEIRA ([id number]) 1985 F [facility] Date Time Provider Department 03/09/25 2:45 PM BALTAZAR COURTNEY GENNELSONS During your visit today, we recorded the following information about you: Temperature Pulse Respiration Blood pressure 97.1 degrees 96/minute 14/minute 148/82 Weight Height 103.9 kg 1.6 m Yelitza Whitlock LPN 03/13/2025 2:16 PM Signed REVIEW OF SYSTEMS: General: The patient notes fatigue, denies weight loss, notes weight gain, denies feeling hot, and denies feelings of cold. Eyes: The patient denies glaucoma, denies eye injury/surgery, does not wear glasses or contacts. Ear/Nose/Throat: The patient denies allergies, denies hayfever, denies ear infections, and denies bloody noses. Cardiovascular: The patient denies chest pain, denies heart disease, denies high blood pressure,denies cardiac stent, denies prior heart attack, denies irregular heart beat, denies high cholesterol, denies poor circulation, denies heart failure, other cardiac issues, denies claudication, denies cold feet, denies peripheral arterial stent. Respiratory: The patient denies tuberculosis, denies pneumonia, denies frequent cough, denies pulmonary embolism, denies shortness of breath, and denies coughing up blood. NOTES blood clots in lung. Gastrointestinal: The patient denies difficulty swallowing, denies acid reflux, denies ulcers, denies vomiting, denies jaundice/hepatitis, notes gallbladder problems, denies black or tarry stools, denies hemorrhoids, denies bleeding from rectum, denies diverticulitis, denies constipation, denies diarrhea, denies loss of stool control, and denies hernias. Kidney/Bladder: The patient denies kidney stones, denies urine infections, and denies bloody urine. Skin: The patient denies a history of skin cancer, denies bleeding/changing moles, and denies a history of skin rash. Neurologic: The patient denies a history of epilepsy/convulsions, denies headaches, denies head/spinal injuries, and denies stroke/TIA. Psychiatric: The patient denies psychiatric medications, NOTES history of depression, and denies voices, denies substance abuse. Endocrine: The patient denies thyroid disorders, denies diabetes, and denies hormonal problems. Hematologic: The patient denies a history of bruising, denies bleeding, and denies anemia, notes blood clots. Infections: The patient denies a history of measles and mumps, denies rheumatic fever, and denies sexually transmitted diseases. Musculoskeletal: The patient denies back pain/injury, denies back problems, denies sciatica, denies knee/foot trouble, denies arthritis, or denies gout. When was patient's last Mammogram screening? N/A Last Colonoscopy: N/A MARITO Foss Daniel P, MD 03/13/2025 2:16 PM Signed HISTORY AND PHYSICAL Hamlet Teixeira 1985 REFERRING PHYSICIAN: Ortega Medrano MD, MD CHIEF COMPLAINT: Consult HPI: Hamlet Teixeira is a 39-year-old female presenting for evaluation of thyroid nodules. Hamlet was recently diagnosed with thyroid nodules following an ultrasound ordered by her new PCP. The ultrasound revealed a 2.2 cm nodule on the right side, classified as TR3, with recommendations for follow-up ultrasounds at 1, 3, and 5 years. Additionally, a 1.1 cm nodule on the right side was classified as TR4, with ultrasound follow-up recommended. No significant findings were reported on the left side. Hamlet has lost approximately 100 lbs, resulting in significant improvement in knee pain. The patient is being seen by me today at the request of Dr. Ortega Medrano MD, MD for my opinion and advice regarding Multinodular goiter (primary encounter diagnosis). PAST MEDICAL HISTORY Diagnosis Date Anxiety and depression History of abnormal cervical Pap smear 08/27/2006 History of maternal deep vein thrombosis (DVT) 2019 Morbid obesity (HCC) Pulmonary embolism (HCC) 2019 bilateral Thyromegaly 02/18/2025 Vitamin D deficiency PAST SURGICAL HISTORY Procedure Laterality Date REMOVAL GALLBLADDER 2018 Current Outpatient Medications Medication Sig FLUoxetine (PROZAC) 40 mg capsule Take 40 mg by mouth once daily. hydrOXYzine pamoate (VISTARIL) 25 mg capsule Take 25 mg by mouth every 8 hours as needed for anxiety. cholecalciferol (VITAMIN D-3) 50 mcg (2,000 unit) tablet Take 2,000 Units by mouth once daily. SLYND 4 mg (28) tabet Take 1 tablet by mouth once daily. FLUoxetine (PROZAC) 20 mg capsule Take 20 mg by mouth. (Patient taking differently: Take 40 mg by mouth once daily.) No current facility-administered medications for this visit. ALLERGIES: Patient has no known allergies. PERSONAL HISTORY: Social History Tobacco Use Smoking status: Never Smokeless tobacco: Never Vaping Use Vaping status: Never Used Substance Use Topics Alcohol use: (more content not included)... Normal [facility] Thyroidon 02-12-2025 Thyroid [facility] [address] [place] [id number] Thyroid MR#: [id number] Acct: [id number] Name: HAMLET TEIXEIRA Rep #: [id number] : 1985 F 39 From: [place]o Rock DO PCP: Dr. Ortega Medrano MD Status: REG CLI Study: Thyroid Date of Exam: 02/12/25 Exam# [id number] Ordering Dr: Ortega Medrano MD PROCEDURE: THYROID 02/12/2025 REASON FOR EXAM: THYROMEGALY TECHNIQUE: Grayscale and color imaging of the thyroid gland. COMPARISON: None. FINDINGS: Right thyroid lobe size: 4.2 cm L by 2.0 cm AP x 2.2 cm T Left thyroid lobe size: 3.7 cm 1.2 cm AP by 1.4 cm T Isthmus: 1.8 mm Background parenchymal echotexture is homogeneous. Nodules: Right nodule 1. Lobe: Upper pole, Location: 2.2, Size: Cm, Composition: Almost completely solid Echogenicity: Isoechoic Margin: Smooth (+0) Shape: Wider than tall Echogenic Foci: None. TI-RADS: TR 3 mildly suspicious ultrasound follow-up recommended at 1 year, 3 year and 5 year Right nodule 2. Lobe: Right, Location: Mid upper, Size: 1.1 cm, Composition: Almost completely solid Echogenicity: Hypoechoic Margin: Smooth (+0) Shape: Wider than tall Echogenic Foci: None. TI-RADS: TR 4 moderately suspicious. Ultrasound follow-up recommended Right nodule 3 lobe: Right, Location: Lower pole, Size: 1.2 cm, Composition: Almost completely solid Echogenicity: Hypoechoic Margin: Smooth Shape: Wider than tall Echogenic Foci: None. TI-RADS: TR 4 moderately suspicious. Ultrasound follow-up recommended Left nodule 1. Lobe: Left, Location: Lower pole, Size: 0.7 cm, Composition: Solid or almost completely solid (+2) Echogenicity: Isoechoic Margin: Smooth (+0) Shape: Wider than tall Echogenic Foci: None. TI-RADS: TR 3 mildly suspicious but no follow-up recommended US/Thyroid IMPRESSION: Normal size thyroid gland with 4 nodules, 3 on the right and 1 on the left. TR 4 moderately suspicious. Ultrasound follow-up recommended. Follow in 1 year RECOMMENDATION: Based on most suspicious nodule. Nodule size = largest diameter Only evaluate nodule if =>5 mm. Growth > 20% in 2 dimensions = worsening. Follow up to 4 nodules. Recommend biopsy for no more than 2 nodules. Reading Location: [facility] CC: Dr. Ortega Medrano MD Biodiesel Production Associate: Signed Normal [facility] Thyroglobulin w/Anti-TG ABon 02-11-2025 Anti-TG AB < 1.0 Normal 0.0-0.9 [facility] Comment on above: Order Comment: Order Date: 02/05/25Order Info: [id number] - TSIMM Result Comment: Thyr oglobulin Antibody measured by Areli Ayanna Methodology It should be noted that the presence of thyroglobulin antibodies may not be pathogenic nor diagnostic, especially at very low levels. The assay handbag frames inspector has found that four percent of individuals without evidence of thyroid disease or autoimmunity will have positive TgAb levels up to 4 IU/mL. Performed By: #### L 503.0106, L506.1001, L3300.6820, L3300.6900 ####[facility] [id number] [place], [place], [id number] THYROGLOB QUANT 113.2 ng/mL High 1.5-38.5 [facility] Comment on above: Order Comment: Order Date: 02/05/25Order Info: [id number] - TSIMM Result Comment: Acco rding to the National Academy of Clinical Biochemistry, the reference interval for Thyroglobulin (TG) should be related to euthyroid patients and not for patients who underwent thyroidectomy. TG reference intervals for these patients depend on the residual mass of the thyroid tissue left after surgery. Establishing a post-operative baseline is recommended. The assay limit of quantitation is 0.1 ng/mL Thyroglobulin measured by Areli Ayanna Immunometric Assay Performed By: #### L 503.0106, L506.1001, L3300.6820, L3300.6900 ####[facility] [address] [place], [place], [id number] Thyroid Peroxidase ABon - THYR PEROX AB < 9 Normal 0-34 [facility] Comment on above: Order Comment: Order Date: 02/05/25Order Info: [id number] - TSIMM Result Comment: Perf ormed at: - [facility] [address] [id number] Workers Compensation Defense Attorney: Kartik Cano MD, Phone: [phone] Performed at: - [facility] [address] [id number] Workers Compensation Defense Attorney: Rodrigo Edmondson PhD, Phone: [phone] Performed By: #### L 503.0106, L506.1001, L3300.1194, L3300.6026 ####[facility] [address] [place], [place], [id number] Thyroid Stim Immunoglobon THY STIM IMMUNO <0.10 Normal 0.00-0.55 [facility] Comment on above: Order Comment: Order Date: 02/05/25Order Info: [id number] - TSIMM Performed By: #### L 3400.4700 ####[facility] [address] [place], [place], [id number] Absolute lymphocyte countOrd ered By: Ortega Medrano on 02-05-2025 Lymphocytes Auto (Unsp spec) [#/Vol] 3.19 10*3/uL 0.83-4.51 [facility] Absolute neutrophil countOrd ered By: Ortega Medrano on 02-05-2025 Neutrophils (Bld) [#/Vol] 7.0 10*3/uL 2.0-7.7 [facility] Anion gap in Serum or Plasma Ordered By: Ortega Medrano on 02-05-2025 Anion gap [Moles/Vol] 12 mmol/L 5-15 [facility] Automated lymphocyte count a s percentage of total leukocytesOrdered By: Ortega Medrano on 02-05-2025 Lymphocytes/100 WBC Auto (Unsp spec) 29.0 % 19-41 [facility] BUN/creatinine ratioOrdered By: Ortega Medrano on 02-05-2025 Urea nitrogen/Creatinine [Mass ratio] 9.1 mg/mg Low 10-20 [facility] Basophil percentageOrdered B y: Ortega Medrano on 02-05-2025 Basophils/100 WBC (Bld) 0.8 % 0-1 [facility] Bilirubin, totalOrdered By: Ortega Medrano on 02-05-2025 Bilirubin [Mass/Vol] 0.31 mg/dL 0.00-1.30 [facility] CBC W/Diff, Automatedon 01-25 Absolute Lymph 3.19 X10 3/uL Normal 0.83-4.51 [facility] Comment on above: Order Comment: Order Date: 02/05/25 Order Info: [id number] - CBCD Performed By: #### L 501.9520, L506.0400, L100.0100, L500.4050 #### [facility] [address] [place], [address] Absolute Neut 7.0 X10 3/uL Normal 2.0-7.7 [facility] Comment on above: Order Comment: Order Date: 02/05/25 Order Info: [id number] - CBCD Performed By: #### L 501.9520, L506.0400, L100.0100, L500.4050 #### [facility] [address] [place], [address] Basophils/100 WBC (Bld) 0.8 % Normal 0-1 [facility] Comment on above: Order Comment: Order Date: 02/05/25 Order Info: 0184-1 - CBCD Performed By: #### L 501.9520, L506.0400, L100.0100, L500.4050 #### [facility] [address] [place], [address] Eosinophils/100 WBC (Bld) 0.8 % Normal 0-5 [facility] Comment on above: Order Comment: Order Date: 02/05/25 Order Info: [id number] - CBCD Performed By: #### L 501.9520, L506.0400, L100.0100, L500.4050 #### [facility] [address] [place], [address] Erythrocyte distribution width (RBC) [Ratio] 11.9 % Normal 11.6-14.6 [facility] Comment on above: Order Comment: Order Date: 02/05/25 Order Info: 0184-1 - CBCD Performed By: #### L 501.9520, L506.0400, L100.0100, L500.4050 #### [facility] [address] [place], [address] Hematocrit (Bld) [Volume fraction] 39.8 % Normal 37-47 [facility] Comment on above: Order Comment: Order Date: 02/05/25 Order Info: [id number]- - CBCD Performed By: #### L 501.9520, L506.0400, L100.0100, L500.4050 #### [facility] [address] [place], [address] Hemoglobin (Bld) [Mass/Vol] 13.0 g/dL Normal 12.0-15.0 [facility] Comment on above: Order Comment: Order Date: 02/05/25 Order Info: 0184-1 - CBCD Performed By: #### L 501.9520, L506.0400, L100.0100, L500.4050 #### [facility] [address] [place], [address] IG% 0.400 Normal 0.0-0.9 [facility] Comment on above: Order Comment: Order Date: 02/05/25 Order Info: [id number] - CBCD Result Comment: IG% - Immature Granulocytes (promyelocytes, myelocytes and metamyelocytes) > 1% indicates that a LEFT SHIFT is Present. Performed By: #### L 501.9520, L506.0400, L100.0100, L500.4050 #### [facility] [address] [place], [address] Lymphocytes/100 WBC (Bld) 29.0 % Normal 19-41 [facility] Comment on above: Order Comment: Order Date: 02/05/25 Order Info: 0184-1 - CBCD Performed By: #### L 501.9520, L506.0400, L100.0100, L500.4050 #### [facility] [address] [place], [address] MCH (RBC) [Entitic mass] 30.2 pg Normal 27.0-32.0 [facility] Comment on above: Order Comment: Order Date: 02/05/25 Order Info: 0184-1 - CBCD Performed By: #### L 501.9520, L506.0400, L100.0100, L500.4050 #### [facility] [address] [place], [address] MCHC (RBC) [Mass/Vol] 32.7 g/dL Normal 32-36 [facility] Comment on above: Order Comment: Order Date: 02/05/25 Order Info: 0184-1 - CBCD Performed By: #### L 501.9520, L506.0400, L100.0100, L500.4050 #### [facility] [address] [place], [address] MCV (RBC) [Entitic vol] 92.3 fL Normal 81-99 [facility] Comment on above: Order Comment: Order Date: 02/05/25 Order Info: 0184-1 - CBCD Performed By: #### L 501.9520, L506.0400, L100.0100, L500.4050 #### [facility] [address] [place], [address] Monocytes/100 WBC (Bld) 5.7 % Normal 0-10 [facility] Comment on above: Order Comment: Order Date: 02/05/25 Order Info: 0184-1 - CBCD Performed By: #### L 501.9520, L506.0400, L100.0100, L500.4050 #### [facility] [address] [place], [address] Neutrophils/100 WBC (Bld) 63.3 % Normal 47-70 [facility] Comment on above: Order Comment: Order Date: 02/05/25 Order Info: 0184-1 - CBCD Performed By: #### L 501.9520, L506.0400, L100.0100, L500.4050 #### [facility] [address] [place], [address] Nucleated RBC (Bld) [#/Vol] 0 10*3/uL Normal 0-5 [facility] Comment on above: Order Comment: Order Date: 02/05/25 Order Info: 0184-1 - CBCD Performed By: #### L 501.9520, L506.0400, L100.0100, L500.4050 #### [facility] [address] [place], [address] Platelet mean volume (Bld) [Entitic vol] 9.2 fL Normal 6.2-12.0 [facility] Comment on above: Order Comment: Order Date: 02/05/25 Order Info: 0184-1 - CBCD Performed By: #### L 501.9520, L506.0400, L100.0100, L500.4050 #### [facility] [address] [place], [address] Platelets (Bld) [#/Vol] 382 10*3/uL Normal 150-450 [facility] Comment on above: Order Comment: Order Date: 02/05/25 Order Info: 0184-1 - CBCD Performed By: #### L 501.9520, L506.0400, L100.0100, L500.4050 #### [facility] [address] [place], [address] RBC (Bld) [#/Vol] 4.31 10*6/uL Normal 4.2-5.4 [facility] Comment on above: Order Comment: Order Date: 02/05/25 Order Info: 0184-1 - CBCD Performed By: #### L 501.9520, L506.0400, L100.0100, L500.4050 #### [facility] [address] [place], [address] RDW SD 40.4 fl Normal 35.1-43.9 [facility] Comment on above: Order Comment: Order Date: 02/05/25 Order Info: 0184-1 - CBCD Performed By: #### L 501.9520, L506.0400, L100.0100, L500.4050 #### [facility] [address] [place], [address] WBC (Bld) [#/Vol] 11.0 10*3/uL Normal 4.4-11.0 [facility] Comment on above: Order Comment: Order Date: 02/05/25 Order Info: 0184-1 - CBCD Performed By: #### L 501.9520, L506.0400, L100.0100, L500.4050 #### [facility] [address] [place], [address] Calculated very low density lipoprotein (VLDL) cholesterol measurementOrdered By: Ortega Medrano on 02-05-2025 Calculated very low density lipoprotein (VLDL) cholesterol measurement 59 mg/dL High 5-40 [facility] Carbon dioxide, total [Moles /volume] in Central venous bloodOrdered By: Ortega Medrano on 02-05-2025 CO2 [Moles/Vol] 21.7 mmol/L 21.0-32.0 [facility] Chloride assayOrdered By: Lidia Medrano on 02-05-2025 Chloride [Moles/Vol] 105 mmol/L 98-108 [facility] Comprehensive Metabolic Prof ilon 02-05-2025 Albumin [Mass/Vol] 4.2 g/dL Normal 3.5-5.0 [facility] Comment on above: Order Comment: Order Date: 02/05/25 Order Info: 785- - CMP Order Info: [id number] - LIPID Order Info: [id number] - TSH Order Info: 3024-7 - T4F Performed By: #### L 501.9520, L506.0400, L100.0100, L500.4050 #### [facility] [address] [place], [address] Albumin/Globulin [Mass ratio] 1.4 {ratio} Normal 0.9-2.4 [facility] Comment on above: Order Comment: Order Date: 02/05/25 Order Info: 785- - CMP Order Info: - LIPID Order Info: [id number] - TSH Order Info: 7 - T4F Performed By: #### L 501.9520, L506.0400, L100.0100, L500.4050 #### [facility] [address] [place], [address] ALK PHOS 62 U/L Normal 35-104 [facility] Comment on above: Order Comment: Order Date: 02/05/25 Order Info: [id number] - CMP Order Info: - LIPID Order Info: [id number] - TSH Order Info: 3027 - T4F Performed By: #### L 501.9520, L506.0400, L100.0100, L500.4050 #### [facility] [address] [place], [address] ALT [Catalytic activity/Vol] 12 U/L Normal <=34 [facility] Comment on above: Order Comment: Order Date: 02/05/25 Order Info: 07- - CMP Order Info: [id number] - LIPID Order Info: 3 - TSH Order Info: 3024-7 - T4F Performed By: #### L 501.9520, L506.0400, L100.0100, L500.4050 #### [facility] [address] [place], [address] AST [Catalytic activity/Vol] 16 U/L Normal <=31 [facility] Comment on above: Order Comment: Order Date: 02/05/25 Order Info: 86-1 - CMP Order Info: [id number] - LIPID Order Info: [id number] - TSH Order Info: 3024-7 - T4F Performed By: #### L 501.9520, L506.0400, L100.0100, L500.4050 #### [facility] [address] [place], [address] Bilirubin [Mass/Vol] 0.31 mg/dL Normal 0.00-1.30 [facility] Comment on above: Order Comment: Order Date: 02/05/25 Order Info: 785-1 - CMP Order Info: [id number] - LIPID Order Info: 3 - TSH Order Info: 3024-7 - T4F Performed By: #### L 501.9520, L506.0400, L100.0100, L500.4050 #### [facility] [address] [place], [address] BUN/CRE 9.1 RATIO Low 10-20 [facility] Comment on above: Order Comment: Order Date: 02/05/25 Order Info: 07-1 - CMP Order Info: [id number] - LIPID Order Info: 3 - TSH Order Info: 3024-7 - T4F Performed By: #### L 501.9520, L506.0400, L100.0100, L500.4050 #### [facility] [address] [place], [address] Calcium [Mass/Vol] 9.6 mg/dL Normal 7.6-11.0 [facility] Comment on above: Order Comment: Order Date: 02/05/25 Order Info: 0786-1 - CMP Order Info: [id number] - LIPID Order Info: [id number] - TSH Order Info: 3024-7 - T4F Performed By: #### L 501.9520, L506.0400, L100.0100, L500.4050 #### [facility] [address] [place], [address] Chloride [Moles/Vol] 105 mmol/L Normal 98-108 [facility] Comment on above: Order Comment: Order Date: 02/05/25 Order Info: 0786-1 - CMP Order Info: [id number] - LIPID Order Info: [id number] - TSH Order Info: 3024-7 - T4F Performed By: #### L 501.9520, L506.0400, L100.0100, L500.4050 #### [facility] [address] [place], [address] CO2 [Moles/Vol] 21.7 mmol/L Normal 21.0-32.0 [facility] Comment on above: Order Comment: Order Date: 02/05/25 Order Info: 785-1 - CMP Order Info: [id number] - LIPID Order Info: [id number] - TSH Order Info: 3024-7 - T4F Performed By: #### L 501.9520, L506.0400, L100.0100, L500.4050 #### [facility] [address] [place], [address] Creatinine [Mass/Vol] 0.82 mg/dL Normal 0.70-1.20 [facility] Comment on above: Order Comment: Order Date: 02/05/25 Order Info: 0786-1 - CMP Order Info: [id number] - LIPID Order Info: [id number] - TSH Order Info: 3024-7 - T4F Performed By: #### L 501.9520, L506.0400, L100.0100, L500.4050 #### [facility] [address] [place], [address] GAP 12 Normal 5-15 [facility] Comment on above: Order Comment: Order Date: 02/05/25 Order Info: 0786-1 - CMP Order Info: [id number] - LIPID Order Info: [id number] - TSH Order Info: 7 - T4F Performed By: #### L 501.9520, L506.0400, L100.0100, L500.4050 #### [facility] [address] [place], [address] GFR/1.73 sq M.predicted among non-blacks MDRD (S/P/Bld) [Vol rate/Area] 94 mL/min/{1.73_m2} Normal >60 [facility] Comment on above: Order Comment: Order Date: 02/05/25 Order Info: [id number] - CMP Order Info: - LIPID Order Info: [id number] - TSH Order Info: [id number] - T4F Result Comment: mL/m in/1.73m2 CKD-EPI Creatinine Equation (2020) Performed By: #### L 501.9520, L506.0400, L100.0100, L500.4050 #### [facility] [address] [place], [address] Globulin (S) [Mass/Vol] 2.9 g/dL Normal 2.2-4.2 [facility] Comment on above: Order Comment: Order Date: 02/05/25 Order Info: 0786- - CMP Order Info: [id number] - LIPID Order Info: 3 - TSH Order Info: 47 - T4F Performed By: #### L 501.9520, L506.0400, L100.0100, L500.4050 #### [facility] [address] [place], [address] Glucose [Mass/Vol] 93 mg/dL Normal 70-99 [facility] Comment on above: Order Comment: Order Date: 02/05/25 Order Info: 0786-1 - CMP Order Info: [id number] - LIPID Order Info: 3 - TSH Order Info: 3024-7 - T4F Performed By: #### L 501.9520, L506.0400, L100.0100, L500.4050 #### [facility] [address] [place], [address] Potassium [Moles/Vol] 4.1 mmol/L Normal 3.3-5.1 [facility] Comment on above: Order Comment: Order Date: 02/05/25 Order Info: 86-1 - CMP Order Info: [id number] - LIPID Order Info: [id number] - TSH Order Info: 3024-7 - T4F Performed By: #### L 501.9520, L506.0400, L100.0100, L500.4050 #### [facility] [address] [place], [address] Sodium [Moles/Vol] 138 mmol/L Normal 133-145 [facility] Comment on above: Order Comment: Order Date: 02/05/25 Order Info: 785- - CMP Order Info: [id number] - LIPID Order Info: 3 - TSH Order Info: 302-7 - T4F Performed By: #### L 501.9520, L506.0400, L100.0100, L500.4050 #### [facility] [address] [place], [address] T PROT 7.2 g/dL Normal 5.9-8.4 [facility] Comment on above: Order Comment: Order Date: 02/05/25 Order Info: 785-1 - CMP Order Info: [id number] - LIPID Order Info: [id number] - TSH Order Info: 3024-7 - T4F Performed By: #### L 501.9520, L506.0400, L100.0100, L500.4050 #### [facility] [address] [place], [address] Urea nitrogen [Mass/Vol] 7 mg/dL Normal 4-19 [facility] Comment on above: Order Comment: Order Date: 02/05/25 Order Info: 86-1 - CMP Order Info: [id number] - LIPID Order Info: [id number] - TSH Order Info: 3024-7 - T4F Performed By: #### L 501.9520, L506.0400, L100.0100, L500.4050 #### [facility] [address] [place], [address] Eosinophil percentageOrdered By: Ortega Medrano on 02-05-2025 Eosinophils/100 WBC (Bld) 0.8 % 0-5 [facility] Erythrocyte distribution wid th ratioOrdered By: Ortega Medrano on 02-05-2025 Erythrocyte distribution width (RBC) [Ratio] 11.9 % 11.6-14.6 [facility] Erythrocyte distribution wid th standard deviationOrdered By: Ortega Medrano on 02-05-2025 Erythrocyte distribution width (RBC) [Ratio] 40.4 fl 35.1-43.9 [facility] Glomerular filtration rate ( GFR) estimation/1.73 sq m using serum, plasma, or whole bOrdered By: Ortega Medrano on 02-05-2025 GFR/1.73 sq M.predicted among non-blacks MDRD (S/P/Bld) [Vol rate/Area] 94 mL/min/{1.73_m2} >60 [facility] Comment on above: mL/min/1.73m2 CKD-EP I Creatinine Equation (2020) Hematocrit Auto (Bld) [Volum e fraction]Ordered By: Ortega Medrano on 02-05-2025 Hematocrit (Bld) [Volume fraction] 39.8 % 37-47 [facility] Hemoglobin measurementOrdere d By: Ortega Medrano on 02-05-2025 Hemoglobin (Bld) [Mass/Vol] 13.0 g/dL 12.0-15.0 [facility] Immature granulocytes/100 WB C Auto (Bld)Ordered By: Ortega Medrano on 02-05-2025 Immature granulocytes/100 WBC (Bld) 0.400 % 0.0-0.9 [facility] Comment on above: IG% - Immature Granu locytes (promyelocytes, myelocytes and metamyelocytes) > 1% indicates that a LEFT SHIFT is Present. LDL calc ser/plasOrdered By: Otrega Medrano on 02-05-2025 Cholesterol in LDL [Mass/Vol] 111 mg/dL [facility] Comment on above: Azrrxhgvre=993-415 m g/dL & Higher Bloi=917 mg/dL or greater Laboratory - Chemistry and C hemistry - challengeOrdered By: Ortega Medrano on 02-05-2025 AST [Catalytic activity/Vol] 16 U/L <32 [facility] Lipid Profileon 02-05-2025 CHOL:HDL 4.76 Normal [facility] Comment on above: Order Comment: Order Date: 02/05/25 Order Info: [id number] - CMP Order Info: [id number] - LIPID Order Info: 3 - TSH Order Info: [id number] - T4F Performed By: #### L 500.4100 #### [facility] [address] [place], [place], [id number] Cholesterol [Mass/Vol] 215 mg/dL High <=200 [facility] Comment on above: Order Comment: Order Date: 02/05/25 Order Info: 0786- - CMP Order Info: - LIPID Order Info: 3 - TSH Order Info: [id number] - T4F Result Comment: Chol esterol level, Desirable <200 mg/dL Borderline high cholesterol 200-239 mg/dL High cholesterol >=240 mg/dL Recommendations of the NCEP Adult Treatment Panel for the following risk-cutoff thresholds for the [place] population. Performed By: #### L 500.4100 #### [facility] [address] [place], [place], [address] Cholesterol in HDL [Mass/Vol] 45 mg/dL Normal [facility] Comment on above: Order Comment: Order Date: 02/05/25 Order Info: 0786-1 - CMP Order Info: [id number] - LIPID Order Info: 3 - TSH Order Info: 7 - T4F Result Comment: Liyah onal Cholesterol Education Program (NCEP) guidelines: <40 mg/dL: Low HDL-cholesterol (major risk factor for CHD) >= 60 mg/dL: High HDL-cholesterol (negative risk factor for CHD) HDL-cholesterol is affected by a number of factors, e.g. smoking, exercise, hormones, sex and age. Performed By: #### L 500.4100 #### [facility] [address] [place], [address] Cholesterol in LDL [Mass/Vol] 111 mg/dL Normal [facility] Comment on above: Order Comment: Order Date: 02/05/25 Order Info: [id number] - CMP Order Info: [id number] - LIPID Order Info: [id number] - TSH Order Info: 7 - T4F Result Comment: Bord fusrej=871-468 mg/dL Higher Qpjk=733 mg/dL or greater Performed By: #### L 500.4100 #### [facility] [address] [place], [address] Cholesterol in VLDL [Mass/Vol] 59 mg/dL High 5-40 [facility] Comment on above: Order Comment: Order Date: 02/05/25 Order Info: 785-1 - CMP Order Info: [id number] - LIPID Order Info: 3 - TSH Order Info: 7 - T4F Performed By: #### L 500.4100 #### [facility] [address] [place], [address] Triglyceride [Mass/Vol] 293 mg/dL High [facility] Comment on above: Order Comment: Order Date: 02/05/25 Order Info: [id number] - CMP Order Info: [id number] - LIPID Order Info: 3 - TSH Order Info: 3027 - T4F Result Comment: The drugs N-Acetylcysteine and Metamizole may falsely depress this assay. Normal range: <150 mg/dL Borderline High: 150-199 mg/dL High: 200-499 mg/dL Very High: >500 mg/dL Performed By: #### L 500.4100 #### [facility] [address] [place], [address] MCV (mean corpuscular volume ) determinationOrdered By: Ortega Medrano on 02-05-2025 MCV (RBC) [Entitic vol] 92.3 fL 81-99 [facility] Mean corpuscular hemoglobin (MCH) determinationOrdered By: Ortega Medrano on 02-05-2025 MCH (RBC) [Entitic mass] 30.2 pg 27.0-32.0 [facility] Mean corpuscular hemoglobin concentration (MCHC) determinationOrdered By: Ortega Medrano on 02-05-2025 MCHC (RBC) [Mass/Vol] 32.7 g/dL 32-36 [facility] Mean platelet volume determi nationOrdered By: Ortega Medrano on 02-05-2025 Platelet mean volume (Bld) [Entitic vol] 9.2 fL 6.2-12.0 [facility] Monocyte percentageOrdered B y: Ortega Medrano on 02-05-2025 Monocytes/100 WBC (Bld) 5.7 % 0-10 [facility] Neutrophil percentageOrdered By: Ortega Medrano on 02-05-2025 Neutrophils/100 WBC (Bld) 63.3 % 47-70 [facility] Nucleated red blood cell per centageOrdered By: Ortega Medrano on 02-05-2025 Nucleated RBC/100 WBC (Bld) [Ratio] 0 % 0-5 [facility] Platelet countOrdered By: Lidia Medrano on 02-05-2025 Platelets (Bld) [#/Vol] 382 10*3/uL 150-450 [facility] Potassium measurement (mass/ volume)Ordered By: Ortega Medrano on 02-05-2025 Potassium (Unsp spec) [Mass/Vol] 4.1 mmol/L 3.3-5.1 [facility] RBC Auto (Bld) [#/Vol]Ordere d By: Ortega Medrano on 02-05-2025 RBC (Bld) [#/Vol] 4.31 10*6/uL 4.2-5.4 [facility] Screening total cholesterol/ high density lipoprotein (HDL) cholesterol ratioOrdered By: Ortega Medrano on 02-05-2025 Cholesterol.total/Cho lesterol in HDL [Mass ratio] 4.76 {ratio} [facility] Serum creatinine measurement (mass/volume)Ordered By: Ortega Medrano on 02-05-2025 Creatinine [Mass/Vol] 0.82 mg/dL 0.70-1.20 [facility] Serum globulin measurementOr dered By: Ortega Medrano on 02-05-2025 Globulin (S) [Mass/Vol] 2.9 g/dL 2.2-4.2 [facility] Serum glucose measurement (m ass/volume)Ordered By: Ortega Medrano on 02-05-2025 Glucose [Mass/Vol] 93 mg/dL 70-99 [facility] Serum or plasma alanine gorman otransferase (ALT) measurementOrdered By: Ortega Medrano on 02-05-2025 ALT [Catalytic activity/Vol] 12 U/L <35 [facility] Serum or plasma albumin harry urement (mass/volume)Ordered By: Ortega Medrano on 02-05-2025 Albumin [Mass/Vol] 4.2 g/dL 3.5-5.0 [facility] Serum or plasma albumin/glob ulin mass ratioOrdered By: Ortega Medrano on 02-05-2025 Albumin/Globulin [Mass ratio] 1.4 {ratio} 0.9-2.4 [facility] Serum or plasma alkaline domi sphatase measurementOrdered By: Ortega Medrano on 02-05-2025 ALP [Catalytic activity/Vol] 62 U/L 35-104 [facility] Serum or plasma calcium harry urement (mass/volume)Ordered By: Ortega Medrano on 02-05-2025 Calcium [Mass/Vol] 9.6 mg/dL 7.6-11.0 [facility] Serum or plasma cholesterol in HDL measurement (mass/volume)Ordered By: Ortega Medrano on 02-05-2025 Cholesterol in HDL [Mass/Vol] 45 mg/dL >40 [facility] Comment on above: National Cholesterol Education Program (NCEP) guidelines:<40 mg/dL: Low HDL-cholesterol (major risk factor for CHD)>= 60 mg/dL: High HDL-cholesterol (negative risk factor for CHD)HDL-cholesterol is affected by a number of factors, e.g. smoking, exercise, hormones, sex and age. Serum or plasma cholesterol measurement (mass/volume)Ordered By: Ortega Medrano on 02-05-2025 Cholesterol [Mass/Vol] 215 mg/dL High <201 [facility] Comment on above: Cholesterol level, D esirable <200 mg/dLBorderline high cholesterol 200-239 mg/dLHigh cholesterol >=240 mg/dLRecommendations of the NCEP Adult Treatment Panel for the following risk-cutoff thresholds for the [place] population. Serum or plasma thyroperoxid ase antibody assay (units/volume)Ordered By: Ortega Medrano on 02-05-2025 TPO Ab Qn [IU]/mL 0-34 [facility] Comment on above: Performed at: [address] [id number] Director: Kartik Cano MD, Phone: [phone] at: - [facility] [id number] Director: Rodrigo Edmondson PhD, Phone: [phone] Serum or plasma urea nitroge n measurement (mass/volume)Ordered By: Ortega Medrano on 02-05-2025 Urea nitrogen [Mass/Vol] 7 mg/dL 4-19 [facility] Sodium levelOrdered By: Ortega Medrano on 02-05-2025 Sodium [Moles/Vol] 138 mmol/L 133-145 [facility] T4 Free Directon 02-05-2025 T4 FREE DIRECT 1.00 ng/dL Normal 0.76-1.46 [facility] Comment on above: Order Comment: Order Date: 02/05/25 Order Info: [id number] - CMP Order Info: [id number] - LIPID Order Info: [id number] - TSH Order Info: 3024-7 - T4F Performed By: #### L 501.9520, L506.0400, L100.0100, L500.4050 #### [facility] [address] [place], [address] T4 freeOrdered By: Ortega doran on 02-05-2025 Free T4 [Mass/Vol] 1.00 ng/dL 0.76-1.46 [facility] TSH DL <= 0.005 mIU/L QnOrde red By: Ortega Medrano on 02-05-2025 TSH Qn 1.840 uIU/mL 0.300-4.20 0 [facility] Thyroid Stim Hormone (TSH)on 02-05-2025 TSH 1.840 uIU/mL Normal 0.300-4.20 0 [facility] Comment on above: Order Comment: Order Date: 02/05/25 Order Info: [id number] - CMP Order Info: [id number] - LIPID Order Info: 3 - TSH Order Info: [id number] - T4F Performed By: #### L 501.9520, L506.0400, L100.0100, L500.4050 #### [facility] [address] [place], [place], [address] Thyroid stimulating immunogl obulins detectionOrdered By: Ortega Medrano on 02-05-2025 Thyroid stimulating immunoglobulins Ql (S) <0.10 IU/L 0.00-0.55 [facility] Total proteinOrdered By: Jose Medrano on 02-05-2025 Protein [Mass/Vol] 7.2 g/dL 5.9-8.4 [facility] Triglycerides measurementOrd ered By: Ortega Medrano on 02-05-2025 Triglyceride [Mass/Vol] 293 mg/dL High <199 [facility] Comment on above: The drugs N-Acetylcy steine and Metamizole may falsely depress this assay. Normal range: <150 mg/dLBorderline High: 150-199 mg/dLHigh: 200-499 mg/dLVery High: >500 mg/dL Vitamin B12on 02-05-2025 Cobalamin (Vitamin B12) [Mass/Vol] 356 pg/mL Normal 180-914 [facility] Comment on above: Order Comment: Order Date: 02/05/25Order Info: [id number] - CMPOrder Info: [id number] - LIPIDOrder Info: 3 - TSHOrder Info: [id number] - T4F Performed By: #### L 503.0106, L506.1001, L3300.6820, L3300.6900 ####[facility] [id number] [place], [place], [id number] Vitamin B12 ser/plasOrdered By: Ortega Medrano on 02-05-2025 Cobalamin (Vitamin B12) [Mass/Vol] 356 pg/mL 180-914 [facility] Vitamin D,25 Hydroxyon 02-05 Vitamin D 25-OH 35.6 ng/mL Normal 30-100 [facility] Comment on above: Order Comment: Order Date: 02/05/25Order Info: [id number] - CMPOrder Info: [id number] - LIPIDOrder Info: [id number] - TSHOrder Info: 3024-7 - T4F Result Comment: Luba min D Status Deficiency: <20 ng/mL (50nmol/L) Insufficiency: 20-30 ng/mL (50-75 nmol/L) Sufficiency: 30-100 ng/mL (75-250 nmol/L) Toxicity: >100 ng/mL (>250 nmol/L) Performed By: #### L 503.0106, L506.1001, L3300.6820, L3300.6900 ####[facility] [id number] [place], [address] White blood cell (WBC) count Ordered By: Ortega Medrano on 02-05-2025 WBC (Bld) [#/Vol] 11.0 10*3/uL 4.4-11.0 [facility] Absolute lymphocyte countOrd ered By: HEALTH ASSESSMENT on 11-15-2024 Lymphocytes Auto (Unsp spec) [#/Vol] 2.85 10*3/uL 0.83-4.51 [facility] Absolute neutrophil countOrd ered By: HEALTH ASSESSMENT on 11-15-2024 Neutrophils (Bld) [#/Vol] 5.7 10*3/uL 2.0-7.7 [facility] [facility] nucleated red blood cell countOrdered By: HEALTH ASSESSMENT on 11-15-2024 Nucleated RBC (Bld) [#/Vol] 0.00 10*3/uL 0-5 [facility] Anion gap in Serum or Plasma Ordered By: HEALTH ASSESSMENT on 11-15-2024 Anion gap [Moles/Vol] 9 mmol/L 5- [facility] BUN/creatinine ratioOrdered By: HEALTH ASSESSMENT on 11-15-2024 Urea nitrogen/Creatinine [Mass ratio] 14.5 mg/mg 10- [facility] Bilirubin directOrdered By: HEALTH ASSESSMENT on 11-15-2024 Bilirubin.direct [Mass/Vol] 0.14 mg/dL 0.00-0.30 [facility] Bilirubin, totalOrdered By: HEALTH ASSESSMENT on 11-15-2024 Bilirubin [Mass/Vol] 0.37 mg/dL 0.00-1.30 [facility] Blood band neutrophil count as percentage of total leukocytesOrdered By: HEALTH ASSESSMENT on 11-15-2024 Band form neutrophils/100 WBC (Bld) 61.9 % 47-70 [facility] CBC, Employeeon 11-15-2024 Absolute Lymph 2.85 X10 3/uL Normal 0.83-4.51 [facility] Comment on above: Performed By: #### L 100.0200, L500.2900 #### [facility] [address] [place], [address] Absolute Neut 5.7 X10 3/uL Normal 2.0-7.7 [facility] Comment on above: Performed By: #### L 100.0200, L500.2900 #### [facility] [address] [place], [address] Basophils/100 WBC (Bld) 0.8 % Normal 0-1 [facility] Comment on above: Performed By: #### L 100.0200, L500.2900 #### [facility] [address] [place], [address] Eosinophils/100 WBC (Bld) 1.4 % Normal 0-5 [facility] Comment on above: Performed By: #### L 100.0200, L500.2900 #### [facility] [address] [place], [address] Erythrocyte distribution width (RBC) [Ratio] 12.1 % Normal 11.6-14.6 [facility] Comment on above: Performed By: #### L 100.0200, L500.2900 #### [facility] [address] [place], [address] Hematocrit (Bld) [Volume fraction] 39.9 % Normal 37-47 [facility] Comment on above: Performed By: #### L 100.0200, L500.2900 #### [facility] [address] [place], [address] Hemoglobin (Bld) [Mass/Vol] 13.2 g/dL Normal 12.0-15.0 [facility] Comment on above: Performed By: #### L 100.0200, L500.2900 #### [facility] [address] [place], [address] Lymphocytes/100 WBC (Bld) 30.9 % Normal 19-41 [facility] Comment on above: Performed By: #### L 100.0200, L500.2900 #### [facility] [address] [place], [address] MCH (RBC) [Entitic mass] 30.6 pg Normal 27.0-32.0 [facility] Comment on above: Performed By: #### L 100.0200, L500.2900 #### [facility] [address] [place], [address] MCHC (RBC) [Mass/Vol] 33.1 g/dL Normal 32-36 [facility] Comment on above: Performed By: #### L 100.0200, L500.2900 #### [facility] [address] [place], [address] MCV (RBC) [Entitic vol] 92.4 fL Normal 81-99 [facility] Comment on above: Performed By: #### L 100.0200, L500.2900 #### [facility] [address] [place], [address] Monocytes/100 WBC (Bld) 4.7 % Normal 0-10 [facility] Comment on above: Performed By: #### L 100.0200, L500.2900 #### [facility] [address] [place], [address] Neutrophils/100 WBC (Bld) 61.9 % Normal 47-70 [facility] Comment on above: Performed By: #### L 100.0200, L500.2900 #### [facility] [address] [place], [address] NRBC # 0.00 10 3/uL Normal 0-5 [facility] Comment on above: Performed By: #### L 100.0200, L500.2900 #### [facility] [address] [place], [address] Nucleated RBC (Bld) [#/Vol] 0 10*3/uL Normal 0-5 [facility] Comment on above: Performed By: #### L 100.0200, L500.2900 #### [facility] [address] [place], [address] Platelet mean volume (Bld) [Entitic vol] 8.8 fL Normal 6.2-12.0 [facility] Comment on above: Performed By: #### L 100.0200, L500.2900 #### [facility] [address] [place], [address] Platelets (Bld) [#/Vol] 354 10*3/uL Normal 150-450 [facility] Comment on above: Performed By: #### L 100.0200, L500.2900 #### [facility] [address] [place], [address] RBC (Bld) [#/Vol] 4.32 10*6/uL Normal 4.2-5.4 [facility] Comment on above: Performed By: #### L 100.0200, L500.2900 #### [facility] [address] [place], [address] RDW SD 41.0 fl Normal 35.1-43.9 [facility] Comment on above: Performed By: #### L 100.0200, L500.2900 #### [facility] [address] [place], [place], [address] WBC (Bld) [#/Vol] 9.2 10*3/uL Normal 4.4-11.0 [facility] Comment on above: Performed By: #### L 100.0200, L500.2900 #### [facility] [address] [place], [address] Calculated very low density lipoprotein (VLDL) cholesterol measurementOrdered By: HEALTH ASSESSMENT on 11-15-2024 Calculated very low density lipoprotein (VLDL) cholesterol measurement 41 mg/dL High 5-40 [facility] Carbon dioxide, total [Moles /volume] in Central venous bloodOrdered By: HEALTH ASSESSMENT on 11-15-2024 CO2 [Moles/Vol] 23.0 mmol/L 21.0-32.0 [facility] Chloride assayOrdered By: HE ALTH ASSESSMENT on 11-15-2024 Chloride [Moles/Vol] 106 mmol/L 98-108 [facility] Employee Profileon Cholesterol in LDL [Mass/Vol] 133 mg/dL High 0-130 [facility] Comment on above: Performed By: #### L 100.0200, L500.2900 ####[facility] [address] [place], [place], [id number] Erythrocyte distribution wid th ratioOrdered By: HEALTH ASSESSMENT on 11-15-2024 Erythrocyte distribution width (RBC) [Ratio] 12.1 % 11.6-14.6 [facility] Erythrocyte distribution wid th standard deviationOrdered By: HEALTH ASSESSMENT on 11-15-2024 Erythrocyte distribution width (RBC) [Ratio] 41.0 fl 35.1-43.9 [facility] Glomerular filtration rate ( GFR) estimation/1.73 sq m using serum, plasma, or whole bOrdered By: HEALTH ASSESSMENT on 11-15-2024 GFR/1.73 sq M.predicted among non-blacks MDRD (S/P/Bld) [Vol rate/Area] 95 mL/min/{1.73_m2} >60 [facility] Comment on above: mL/min/1.73m2 CKD-EP I Creatinine Equation (2020) Hematocrit Auto (Bld) [Volum e fraction]Ordered By: HEALTH ASSESSMENT on 11-15-2024 Hematocrit (Bld) [Volume fraction] 39.9 % 37-47 [facility] Hemoglobin measurementOrdere d By: HEALTH ASSESSMENT on 11-15-2024 Hemoglobin (Bld) [Mass/Vol] 13.2 g/dL 12.0-15.0 [facility] - Chemistry and C hemistry - challengeOrdered By: HEALTH ASSESSMENT on 11-15-2024 AST [Catalytic activity/Vol] 12 U/L <32 [facility] Lactate dehydrogenase (LDH) measurementOrdered By: HEALTH ASSESSMENT on 11-15-2024 LDH [Catalytic activity/Vol] 168 U/L 84-246 [facility] Low density lipoprotein (LDL ) cholesterol measurementOrdered By: HEALTH ASSESSMENT on 11-15-2024 Cholesterol in LDL [Mass/Vol] 133 mg/dL High 0-130 [facility] MCV (mean corpuscular volume ) determinationOrdered By: HEALTH ASSESSMENT on 11-15-2024 MCV (RBC) [Entitic vol] 92.4 fL 81-99 [facility] Mean corpuscular hemoglobin (MCH) determinationOrdered By: HEALTH ASSESSMENT on 11-15-2024 MCH (RBC) [Entitic mass] 30.6 pg 27.0-32.0 [facility] Mean corpuscular hemoglobin concentration (MCHC) determinationOrdered By: HEALTH ASSESSMENT on 11-15-2024 MCHC (RBC) [Mass/Vol] 33.1 g/dL 32-36 [facility] Mean platelet volume determi nationOrdered By: HEALTH ASSESSMENT on 11-15-2024 Platelet mean volume (Bld) [Entitic vol] 8.8 fL 6.2-12.0 [facility] Nucleated red blood cell per centageOrdered By: HEALTH ASSESSMENT on 11-15-2024 Nucleated RBC/100 WBC (Bld) [Ratio] 0 % 0-5 [facility] Platelet countOrdered By: HE ALTH ASSESSMENT on 11-15-2024 Platelets (Bld) [#/Vol] 354 10*3/uL 150-450 [facility] Potassium measurement (mass/ volume)Ordered By: HEALTH ASSESSMENT on 11-15-2024 Potassium (Unsp spec) [Mass/Vol] 4.3 mmol/L 3.3-5.1 [facility] RBC Auto (Bld) [#/Vol]Ordere d By: HEALTH ASSESSMENT on 11-15-2024 RBC (Bld) [#/Vol] 4.32 10*6/uL 4.2-5.4 [facility] Screening total cholesterol/ high density lipoprotein (HDL) cholesterol ratioOrdered By: HEALTH ASSESSMENT on 11-15-2024 Cholesterol.total/Cho lesterol in HDL [Mass ratio] 4.65 {ratio} [facility] Serum creatinine measurement (mass/volume)Ordered By: HEALTH ASSESSMENT on 11-15-2024 Creatinine [Mass/Vol] 0.82 mg/dL 0.70-1.20 [facility] Serum globulin measurementOr dered By: HEALTH ASSESSMENT on 11-15-2024 Globulin (S) [Mass/Vol] 2.9 g/dL 2.2-4.2 [facility] Serum glucose measurement (m ass/volume)Ordered By: HEALTH ASSESSMENT on 11-15-2024 Glucose [Mass/Vol] 98 mg/dL 70-99 [facility] Serum or plasma alanine gorman otransferase (ALT) measurementOrdered By: HEALTH ASSESSMENT on 11-15-2024 ALT [Catalytic activity/Vol] 8 U/L <35 [facility] Serum or plasma albumin harry urement (mass/volume)Ordered By: HEALTH ASSESSMENT on 11-15-2024 Albumin [Mass/Vol] 4.0 g/dL 3.5-5.0 [facility] Serum or plasma albumin/glob ulin mass ratioOrdered By: HEALTH ASSESSMENT on 11-15-2024 Albumin/Globulin [Mass ratio] 1.4 {ratio} 0.9-2.4 [facility] Serum or plasma alkaline domi sphatase measurementOrdered By: HEALTH ASSESSMENT on 11-15-2024 ALP [Catalytic activity/Vol] 58 U/L 35-104 [facility] Serum or plasma calcium harry urement (mass/volume)Ordered By: HEALTH ASSESSMENT on 11-15-2024 Calcium [Mass/Vol] 9.0 mg/dL 7.6-11.0 [facility] Serum or plasma cholesterol in HDL measurement (mass/volume)Ordered By: HEALTH ASSESSMENT on 11-15-2024 Cholesterol in HDL [Mass/Vol] 48 mg/dL >40 [facility] Comment on above: National Cholesterol Education Program (NCEP) guidelines:<40 mg/dL: Low HDL-cholesterol (major risk factor for CHD)>= 60 mg/dL: High HDL-cholesterol (negative risk factor for CHD)HDL-cholesterol is affected by a number of factors, e.g. smoking, exercise, hormones, sex and age. Serum or plasma cholesterol measurement (mass/volume)Ordered By: HEALTH ASSESSMENT on 11-15-2024 Cholesterol [Mass/Vol] 222 mg/dL High <201 [facility] Comment on above: Cholesterol level, D esirable <200 mg/dLBorderline high cholesterol 200-239 mg/dLHigh cholesterol >=240 mg/dLRecommendations of the NCEP Adult Treatment Panel for the following risk-cutoff thresholds for the [place] population. Serum or plasma urea nitroge n measurement (mass/volume)Ordered By: HEALTH ASSESSMENT on 11-15-2024 Urea nitrogen [Mass/Vol] 12 mg/dL 4-19 [facility] Serum or plasma uric acid me asurement (mass/volume)Ordered By: HEALTH ASSESSMENT on 11-15-2024 Urate [Mass/Vol] 3.9 mg/dL 2.6-6.0 [facility] Comment on above: The drugs N-Acetylcy steine and Metamizole may falsely depress this assay. Sodium levelOrdered By: [facility] ASSESSMENT on 11-15-2024 Sodium [Moles/Vol] 138 mmol/L 133-145 [facility] Total proteinOrdered By: [facility] ASSESSMENT on 11-15-2024 Protein [Mass/Vol] 6.9 g/dL 5.9-8.4 [facility] Triglycerides measurementOrd ered By: HEALTH ASSESSMENT on 11-15-2024 Triglyceride [Mass/Vol] 207 mg/dL High <199 [facility] Comment on above: The drugs N-Acetylcy steine and Metamizole may falsely depress this assay. Normal range: <150 mg/dLBorderline High: 150-199 mg/dLHigh: 200-499 mg/dLVery High: >500 mg/dL White blood cell (WBC) count Ordered By: HEALTH ASSESSMENT on 11-15-2024 WBC (Bld) [#/Vol] 9.2 10*3/uL 4.4-11.0 [facility] Quantiferon TB-Gold+on 10-30 QFT MITOGEN GERBER > 10.00 Normal . [facility] Comment on above: Order Comment: REDRA W Performed By: #### L 3400.8000 ####[facility] [address] [place], [address] QFT NIL VALUE 0.08 IU/mL Normal . [facility] Comment on above: Order Comment: REDRA W Performed By: #### L 3400.8000 ####[facility] [address] [place], [address] QFT TB GOLD+ Comment Normal . [facility] Comment on above: Order Comment: REDRA W Result Comment: Regino tiFERON-TB Gold Plus is a qualitative indirect test for M tuberculosis infection (including disease) and is intended for use in conjunction with risk assessment, radiography, and other medical and diagnostic evaluations. The QuantiFERON-TB Gold Plus result is determined by subtracting the Nil value from either TB antigen (Ag) value. The Mitogen tube serves as a control for the test. Performed By: #### L 3400.8000 ####[facility] [address] [place], [address] QFT TB POS CRIT Negative Normal Negative [facility] Comment on above: Order Comment: REDRA W Result Comment: No r esponse to M tuberculosis antigens detected. Infection with M tuberculosis is unlikely, but high risk individuals should be considered for additional testing (ATS/IDSA/CDC Clinical Practice Guidelines, 2017). The reference range is an Antigen minus Nil result of <0.35 IU/mL. The specimen received for QuantiFERON testing was incubated by the ordering institution. Specific procedures outlined in our Directory of Services and in the package insert for the QuantiFERON Gold (In Tube) test must be followed to enable for proper stimulation of cells for the production of interferon gamma. Chemiluminescence immunoassay methodology Performed at: [address] [id number] Workers Compensation Defense Attorney: Rordigo Edmondson PhD, Phone: [phone] Performed By: #### L 3400.8000 ####[facility] [address] [place], [address] QFT TB1+ AG GERBER 0.16 IU/mL Normal . [facility] Comment on above: Order Comment: REDRA W Performed By: #### L 3400.8000 ####[facility] [address] [place], [address] QFT TB2+ AG GERBER 0.18 IU/mL Normal . [facility] Comment on above: Order Comment: REDRA W Performed By: #### L 3400.8000 ####[facility] [address] [place] [address] Qualitative QuantiFERON-TB g old in tube testOrdered By: HEALTH ASSESSMENT on 10-25-2024 M. tuberculosis tuberculin stim IFN-g Ql (Bld) 0.16 IU/mL . [facility] Quantiferon TB-Gold+on 10-23 QFT MITOGEN GERBER Normal [facility] Comment on above: Result Comment: left in incubator too long Performed By: #### L 3400.8000 ####[facility] [address] [place] [address] QFT NIL VALUE Normal [facility] Comment on above: Result Comment: left in incubator too long Performed By: #### L 3400.8000 ####[facility] [address] [place] [id number] QFT TB GOLD+ Normal [facility] Comment on above: Result Comment: left in incubator too long Performed By: #### L 3400.8000 ####[facility] [address] [place] [id number] QFT TB POS CRIT Normal [facility] Comment on above: Result Comment: left in incubator too long Performed By: #### L 3400.8000 ####[facility] [address] [place], [address] QFT TB1+ AG GERBER Normal [facility] Comment on above: Result Comment: left in incubator too long Performed By: #### L 3400.8000 ####[facility] [address] [place], [address] QFT TB2+ AG GERBER Normal [facility] Comment on above: Result Comment: left in incubator too long Performed By: #### L 3400.8000 ####[facility] [address] [place], [address] PAP IG HPV APTIMA 16/18,45on 08-04-2024 ADEQ Comment Normal . [facility] Comment on above: Order Comment: Speci men Comment: [id number] Specimen Comment: No. of containers..01 ThinPrep Vial Result Comment: Sati sfactory for evaluation. Endocervical and/or squamous metaplastic cells (endocervical component) are present. Performed By: #### L 7400.0280 #### [facility] [address] [place], [address] COMM . Normal . [facility] Comment on above: Order Comment: Speci men Comment: [id number] Specimen Comment: No. of containers..01 ThinPrep Vial Performed By: #### L 7400.0280 #### [facility] [address] [place], [address] COMMENT Comment Normal . [facility] Comment on above: Order Comment: Speci men Comment: [id number] Specimen Comment: No. of containers..01 ThinPrep Vial Result Comment: This liquid based ThinPrep(R) pap test was screened with the use of an image guided system. Performed By: #### L 7400.0280 #### [facility] [address] [place], [place], [address] DIAG Comment Normal . [facility] Comment on above: Order Comment: Speci men Comment: [id number] Specimen Comment: No. of containers..01 ThinPrep Vial Result Comment: NEGA TIVE FOR INTRAEPITHELIAL LESION OR MALIGNANCY. Performed By: #### L 7400.0280 #### [facility] [address] [place], [address] HPV APTIMA, HR Negative Normal Negative [facility] Comment on above: Order Comment: Speci men Comment: [id number] Specimen Comment: No. of containers..01 ThinPrep Vial Result Comment: This nucleic acid amplification test detects fourteen high- risk HPV types (16,18,31,33,35,39,45,51,52,56,58,59,66,68) without differentiation. Performed By: #### L 7400.0280 #### [facility] [address] [place], [place], [address] HPV Mi Rfx Comment Normal . [facility] Comment on above: Order Comment: Speci men Comment: [id number] Specimen Comment: No. of containers..01 ThinPrep Vial Result Comment: Crit eria not met, HPV Genotype not performed. Performed at: [facility] [address] [place], [place] [id number] Workers Compensation Defense Attorney: Jeovanny Slade MD, Phone: [phone] Performed at: - [address] [id number] Workers Compensation Defense Attorney: Magalie Benítez MD, Phone: [phone] Performed at: = - [address] [id number] Workers Compensation Defense Attorney: Magalie Benítez MD, Phone: [phone] Performed By: #### L 7400.0280 #### [facility] [address] [place], [place], [address] PAPSMR Comment Normal . [facility] Comment on above: Order Comment: Speci men Comment: [id number] Specimen Comment: No. of containers..01 ThinPrep Vial Result Comment: The Pap smear is a screening test designed to aid in the detection of premalignant and malignant conditions of the uterine cervix. It is not a diagnostic procedure and should not be used as the sole means of detecting cervical cancer. Both false-positive and false-negative reports do occur. Performed By: #### L 7400.0280 #### [facility] [address] [place], [place], [address] PERFORM Comment Normal . [facility] Comment on above: Order Comment: Speci men Comment: [id number] Specimen Comment: No. of containers..01 ThinPrep Vial Result Comment: Joslyn Tolentino, Repairer [employer]ished [employer] (ASCP) Performed By: #### L 7400.0280 #### [facility] [address] [place], [place], [address] CNOVon 07-30-2024 [facility] HAMLET TEIXEIRA ([id number]) 1985 [address] [facility] Date Time Provider Department 07/30/24 3:15 PM YORDY ANDERSEN [facility] During your visit today, we recorded the following information about you: Temperature Pulse Respiration Blood pressure 98.6 degrees 80/minute 21/minute 122/80 Weight 98.6 kg Yordy Andersen MD 07/30/2024 3:43 PM Signed Patient presents with: Cough: Sinus issues, sore throat, drainage, WALDEN x 1.5 weeks HPI: Feeling sick for 1 1/2 weeks with waxing and waning symptoms. Positive symptoms: Cough, Sore throat, Sinus pressure, Nasal Congestion, Rhinorrhea, post-nasal drainage, Headache, Malaise, Fatigue, Negative symptoms: Shortness of breath, Wheezing, Chest pain, Fever, OTC: Nyquil, Dayquil MEDICATIONS: Current Outpatient Medications Medication Sig SLYND 4 mg (28) tabet Take 1 tablet by mouth once daily. FLUoxetine (PROZAC) 20 mg capsule Take 20 mg by mouth. No current facility-administered medications for this visit. ALLERGIES: ALLERGIES No Known Allergies VITALS: BP 122/80 Pulse 80 Temp 37 ?C (98.6 ?F) Resp 21 Wt 98.6 kg (217 lb 6 oz) LMP 02/19/2014 SpO2 98% BMI 38.51 kg/m? PHYSICAL EXAM: GEN: mildly ill appearing HEENT: PERRL, EOMI, conjunctiva clear Ears: canals clear. TMs without erythema, bulge, or effusion Sinuses: non-tender frontal sinus, non-tender maxillary sinuses Throat: moist mucous membranes, mild erythema, no exudate Neck: supple, no thyromegaly, no lymphadenopathy HEART: regular rate and rhythm, no murmurs LUNGS: clear to auscultation, no wheezes or crackles, no increased WOB ASSESSMENT/PLAN: 1. Acute non-recurrent sinusitis, unspecified location - ICD9: 461.9, ICD10: J01.90 - Will begin treatment with as per antibiotic as written, see orders - Supportive care with plenty of fluids, rest, and analgesia prn. - AMOXICILLIN 875 MG-POTASSIUM CLAVULANATE 125 MG TABLET Yordy Andersen MD Allergies As of Date: 07/30/2024 (No Known Allergies) Date Reviewed: 07/30/2024 Reviewed by: Naima Garcia MA - Fully Assessed Reason for Visit: Cough [28] Cmt: Sinus issues, sore throat, drainage, WALDEN x 1.5 weeks Primary Visit Diagnosis:Acute non-recurrent sinusitis, unspecified location [J01.90] Order(s):amoxicillin-clavula radhames potassium (AUGMENTIN) 875-125 mg per tabletTake 1 tablet by mouth two times a day for 5 days.Disp: 10 tabletRfl: 0 Prescriptions as of 07/30/2024 - SLYND 4 mg (28) tabet Take 1 tablet by mouth once daily. - FLUoxetine (PROZAC) 20 mg capsule Take 20 mg by mouth. - amoxicillin-clavulanate potassium (AUGMENTIN) 875-125 mg per tablet Take 1 tablet by mouth two times a day for 5 days. Problem List As Of Date 07/30/2024 Noted Resolved BMI 32.0-32.9,adult [Z68.32] 05/25/2014 cardiac echogenic focus, antepartum [O35.*05/25/2014 10/15/2014 Supervision of normal first [Z34.00] 09/17/2014 12/17/2014 Polyhydramnios, antepartum [O40.9XX0] 10/05/2014 12/17/2014 Gestational hypertension [O13.9] 10/22/2014 12/17/2014 premature rupture of membranes [O42.919]11/01/2014 12/17/2014 Prescriptions ordered this encounter Disp Refills Start End AMOXICILLIN 875 MG-POTASSIUM CLAVULA* 10 t* 0 07/30/2024 08/04/2024 Route: ORAL Sig: Take 1 tablet by mouth two times a day for 5 days. Medications Discontinued During This Encounter Prescriptions - Isymyrlj-Jx-Qgw-Fe-FA ( VITAMIN) tab (Discontinued) Reported on 07/30/2024 - fenugreek seed extract 500 mg cap (Discontinued) Reported on 07/30/2024 - Breast Pump mynor (Discontinued) Reported on 07/30/2024 - Breast Pump mynor (Discontinued) Reported on 07/30/2024 - OLIVEIRA'S YEAST ORAL (Discontinued) Reported on 07/30/2024 - Norethindrone, Contraceptive, (ORTHO MICRONOR) 0.35 mg tablet (Discontinued) Reported on 07/30/2024 Level of Service: OFFICE/OUTPATIENT [facility] 30 MINUTES [13954] Encounter Status:Closed by YORDY ANDERSEN on 07/30/24 [facility] 37on 07-29-2024 37 -Healed well. Normal [facility] Office Visiton 07-29-2024 Follow-up visit [id number] Hamlet Teixeira 1985 F Date Provider Department Center 07/29/2024 [id number] A[facility] COL None Family History Family Status - Relation Status Age at Mother Alive Father Alive Brother Alive Daughter Alive Son Level of Service:97685 MA POSTOP FOLLOW UP VISIT RELATED TO ORIGINAL PX Reason for Visit and Comments: Follow-up [398844] - follow up to perianal abscess drainage in office 07/07/24-antibiotic course. Other [0] - Pt unaccompanied Normal [facility] Progress Noteon 07-29-2024 Progress Note @ASSESSMENTBEGINPHAN DODIE@ Assessment: Diagnosis Plan 1. Perianal abscess @PLANBEGINPHANTOM@ Plan: 1. Postop education and instructions are given and all questions answered. The patient shows good understanding. 2. Office follow up prn. Objective History: Hamlet Teixeira is a 39 y.o. female who presents today for reevaluation status post office incision and drainage of a left anterior perianal abscess. The patient currently has no symptoms and the area has healed entirely. She has completed her antibiotic. She has no bleeding or drainage. She has no discomfort. Office exam shows total healing to the point of barely being able to detect the area. There is currently no evidence of fistula. The abscess fistula sequence is reviewed with the patient. Education provided and all questions were answered. She is seen in the office today with Maryana Spivey LPN. Physical Exam: @VSAMB@ Physical Exam Constitutional: General: She is not in acute distress. Appearance: She is not ill-appearing. Eyes: General: No scleral icterus. Conjunctiva/sclera: Conjunctivae normal. Pulmonary: Effort: Pulmonary effort is normal. No respiratory distress. Breath sounds: No stridor. Genitourinary: Comments: External only exam is performed today in the office. There is no residual abscess or cellulitis. There is no hematoma. The area has entirely healed and is nearly invisible. There are no new lesions. There is no current evidence of fistula. Skin: General: Skin is warm and dry. Neurological: General: No focal deficit present. Mental Status: She is alert and oriented to person, place, and time. Psychiatric: Mood and Affect: Mood normal. Behavior: Behavior normal. Thought Content: Thought content normal. Judgment: Judgment normal. ROS: Review of Systems as recordedby the director medical economics has been reviewed by me, and I agree except as noted inthe HPI. Past Medical History: Diagnosis Date Anxiety Hemorrhoids Perianal abscess Pulmonary embolus (HCC) Past Surgical History: Procedure Laterality Date CHOLECYSTECTOMY @MEDCMED@ Social History Socioeconomic History Marital status: Spouse name: Not on file Number of children: Not on file Years of education: Not on file Highest education level: Not on file Occupational History Not on file Tobacco Use Smoking status: Never Smokeless tobacco: Never Substance and Sexual Activity Alcohol use: Yes Drug use: Never Sexual activity: Not on file Other Topics Concern Not on file Social History Narrative Not on file Social Drivers of Health Financial Resource Strain: Not on file Food Insecurity: Not on file Transportation Needs: Not on file Physical Activity: Not on file Stress: Not on file Social Connections: Not on file Intimate Partner Violence: Not on file Housing Stability: Not on file No family history on file. Allergies: No Known Allergies PCP: Sommer Flynn MD Electronically signedby Gómez Younger MD on 07/29/2024 at 3:[address] 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) [employer] Super[employer] Required: No Is patient in pain?: No Allergies No Known Allergies Allergy (Verified 07/28/24 09:27) Medications ???Medication ???Instructions ???Recorded ???Confirmed ???Type duloxetine 60 mg capsule,delayed 60 mg PO DAILY 07/25/23 07/25/23 History release cholecalciferol (vitamin D3) 10 10 mcg PO QDAY 07/28/24 07/28/24 History mcg (400 unit) capsule drospirenone (contraceptive) 4 mg 1 tab PO DAILY #84 tabs 07/28/24 07/28/24 Rx (28) tablet (Slynd) Is last menstrual period known: Yes Last Menstrual Period: 06/28/24 Patient : No : No Control Method: OCP [facility] Medical History DVT (deep venous thrombosis) Bilateral pulmonary embolism History of miscarriage, currently Perianal abscess Exposure to blood Surgical History History of laparoscopic cholecystectomy Family History Grandmother Breast cancer Grandfather No problems noted. 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 Date Name GA/Weeks Outcome Route Bth Weight Infant Gen Labor Lgth Anesthesia Del Locatn Provider FOB 11/01/14 [place] 36 live - 6lbs 11oz Male 16 hours epidural [place] [facility] [place] 05/27/20 Xi 37 live - full term 7lbs 9oz Female 10 hours epidural [facility] Delivery Date: 11/01/14 Last Updated by: Jailyn Simmons pre-e Delivery Date: 05/27/20 Last Updated by: Jailyn Simmons IoL at 37 weeks ghtn and h/o pe HPI Encounter for routine gynecological examination Details: HAMLET TEIXEIRA is a 39 year old who presents for annual exam. Last PAP: 2019 History of abnormal PAP: 20+ years ago Last mammogram: age 41 History of abnormal mammogram: Colon cancer screening: Age 46 Other preventative health care screenings: PCP Female Reproductive History Last Menstrual Period: 06/28/24 Bleeding Duration: 3 Questions: metorrhagia: No, sexually active: Yes, dyspareunia: No and PCB: No Menopausal Symptoms: No hot flashes, No night sweats, No weight change, No mood changes, No difficulty concentrating, No sleep problems and No change in libido ROS Const Constitutional: Reports system reviewed and no additional complaints, except as documented; Denies night sweats Cardio Card: Reports system reviewed and no additional complaints, except as documented Resp Resp: Reports system reviewed and no additional complaints, except as documented GI GI: Reports system reviewed and no additional complaints, except as documented : Reports system reviewed and no additional complaints, except as documented; Denies difficulty voiding, dysuria, hot flashes or urinary frequency Skin Skin/Breast: Reports system reviewed and no additional complaints, except as documented Neuro Neuro: Reports system reviewed and no additional complaints, except as documented Psych Psych: Reports system reviewed and no additional complaints, except as documented; Denies anhedonia, anxiety, change in libido, depression or difficulty concentrating Exam Const General: cooperative, healthy appearing, comfortable and no acute distress Orientation: alert, awake and oriented x3 Neck Neck: normal visual inspection and full ROM Thyroid: thyroid normal Chest Breast inspection: normal inspection of the breasts and normal inspection of the axillae Breast palpation: normal palpation of the breasts and normal palpation of the axillae Re (more content not included)... Normal [facility] Office Visiton 07-07-2024 Follow-up visit [id number] Hamlet Teixeira 1985 F Date Provider Department Center 07/07/2024 [facility] ACH COL None Family History Family Status - Relation Status Age at Mother Alive Father Alive Brother Alive Daughter Alive Son Level of Service:80364 MA OFFICE/OUTPT VISIT,PROCEDURE ONLY Reason for Visit and Comments: New Patient [542] - Evaluation for perianal abscess referring Dr. Guerra Other [0] - Pt unaccomapnied Normal [facility] Progress Noteon 07-07-2024 Progress Note @ASSESSMENTBEGINPHAN DODIE@ Assessment: Diagnosis Plan 1. Perianal abscess @PLANBEGINPHANTOM@ Plan: Office I&D perianal abscess Augmentin 875 mg po bid for 10 days Office follow up in three weeks to reassess Objective History: Hamlet Teixeira is a 38 y.o. female who presents today for evaluation and treatment of perianal abscess. She has no history of Crohn's. She has had office drainage of a similar abscess in a similar location years ago. The current abscess has been getting progressively worse over the past few days. She denies fever or systemic symptoms. PROCEDURE NOTE In the office in the prone jackknife position with the area sterilized with Betadine and using 0.5% sensorcaine local anesthetic, the abscess was drained using a skin punch biopsy without difficulty. Loculations were broken down and the area completely drained. The patient tolerated the procedure well and no complications were incurred. Physical Exam: @VSAMB@ Physical Exam Constitutional: General: She is not in acute distress. Appearance: She is not ill-appearing. Eyes: General: No scleral icterus. Conjunctiva/sclera: Conjunctivae normal. Pulmonary: Effort: Pulmonary effort is normal. No respiratory distress. Breath sounds: No stridor. Genitourinary: Comments: The patient had a moderately large left anterior quadrant perianal abscess. No other findings were noted on external only exam. There was a minimal amount of cellulitis around it. No fistula tract was noted. There was no evidence of Crohn's. Skin: General: Skin is warm and dry. Neurological: General: No focal deficit present. Mental Status: She is alert and oriented to person, place, and time. Psychiatric: Mood and Affect: Mood normal. Behavior: Behavior normal. Thought Content: Thought content normal. Judgment: Judgment normal. ROS: Review of Systems as recordedby the director medical economics has been reviewed by me, and I agree except as noted inthe HPI. Past Medical History: Diagnosis Date Anxiety Hemorrhoids Perianal abscess Pulmonary embolus (HCC) Past Surgical History: Procedure Laterality Date CHOLECYSTECTOMY @MEDCMED@ Social History Socioeconomic History Marital status: Spouse name: Not on file Number of children: Not on file Years of education: Not on file Highest education level: Not on file Occupational History Not on file Tobacco Use Smoking status: Never Smokeless tobacco: Never Substance and Sexual Activity Alcohol use: Yes Drug use: Never Sexual activity: Not on file Other Topics Concern Not on file Social History Narrative Not on file Social Drivers of Health Financial Resource Strain: Not on file Food Insecurity: Not on file Transportation Needs: Not on file Physical Activity: Not on file Stress: Not on file Social Connections: Not on file Intimate Partner Violence: Not on file Housing Stability: Not on file No family history on file. Allergies: No Known Allergies PCP: Sommer Flynn MD Electronically signedby Gómez Younger MD on 07/07/2024 at 2:51 PM. Normal [facility] Absolute lymphocyte countOrd ered By: Michell Woodard on 09-19-2023 Lymphocytes Auto (Unsp spec) [#/Vol] 2.61 10*3/uL 0.83-4.51 [facility] Automated lymphocyte count a s percentage of total leukocytesOrdered By: Michell Woodard on 09-19-2023 Lymphocytes/100 WBC Auto (Unsp spec) 36.7 % 19-41 [facility] Basophil percentageOrdered B y: Michell Woodard on 09-19-2023 Basophils/100 WBC (Bld) 1.0 % 0-1 [facility] Bilirubin [Mass/Vol] 0.50 mg/dL 0.20-1.00 [facility] Comment on above: For patients on eltr ombopag therapy, use of Dimension Mcintosh TBIL is not recommended. Chloride [Moles/Vol] 113 mmol/L 98-107 [facility] Cholesterol [Mass/Vol] 210 mg/dL <200 [facility] Comment on above: <200 mg/dL Desirable 200-240 mg/dL Borderline >240 mg/dL High Risk Eosinophils/100 WBC (Bld) 3.4 % 0-5 [facility] Glucose [Mass/Vol] 104 mg/dL 74-106 [facility] Comment on above: Fasting Glucose resu lt from 100 to 125 mg/dL suggests IMPAIRED HOMEOSTASIS per A.D.A. criteria. Hemoglobin (Bld) [Mass/Vol] 12.6 g/dL 12.0-15.0 [facility] Monocytes/100 WBC (Bld) 6.3 % 0-10 [facility] Neutrophils (Bld) [#/Vol] 3.7 10*3/uL 2.0-7.7 [facility] Neutrophils/100 WBC (Bld) 52.3 % 47-70 [facility] Potassium [Moles/Vol] 3.9 mmol/L 3.5-5.1 [facility] Protein [Mass/Vol] 7.3 g/dL 6.4-8.2 [facility] Sodium [Moles/Vol] 140 mmol/L 136-145 [facility] Triglyceride [Mass/Vol] 170 mg/dL <199 [facility] Comment on above: The drugs N-Acetylcy steine and Metamizole may falsely depress this assay.Serum Triglycerides Reference Interval Normal <150 mg/dL Borderline high 150 - 199 mg/dL High 200 - 499 mg/dL Very High > or = 500 mg/dL WBC (Bld) [#/Vol] 7.1 10*3/uL 4.4-11.0 [facility] Determination of erythrocyte mean corpuscular volume (MCV)Ordered By: Michell Woodard on 09-19-2023 MCV (RBC) [Entitic vol] 90.1 fL 81-99 [facility] Erythrocyte distribution wid th ratioOrdered By: Michell Woodard on 09-19-2023 Erythrocyte distribution width (RBC) [Ratio] 12.7 % 11.6-14.6 [facility] Erythrocyte distribution wid th standard deviationOrdered By: Michell Woodard on 09-19-2023 Erythrocyte distribution width (RBC) [Entitic vol] 41.9 fL 35.1-43.9 [facility] Hematocrit Auto (Bld) [Volum e fraction]Ordered By: Michell Woodard on 09-19-2023 Hematocrit (Bld) [Volume fraction] 39.2 % 37-47 [facility] High density lipoprotein (HD L) measurementOrdered By: Michell Woodard on 09-19-2023 Cholesterol in HDL (Body fld) [Mass/Vol] 41 mg/dL >40 [facility] Comment on above: The drugs N-Acetylcy steine and Metamizole may falsely depress this assay. Reference Range HDL <40 mg/dL Low HDL Cholesterol HDL >or= 60 mg/dL High HDL Cholesterol Immature granulocytes/100 WB C Auto (Bld)Ordered By: Michell Woodard on 09-19-2023 Immature granulocytes/100 WBC (Bld) 0.300 % 0.0-0.9 [facility] Comment on above: IG% - Immature Granu locytes (promyelocytes, myelocytes and metamyelocytes) > 1% indicates that a LEFT SHIFT is Present. Laboratory - Chemistry and C hemistry - challengeOrdered By: Michell Woodard on 09-19-2023 Albumin/Globulin [Mass ratio] 0.9 {ratio} 0.9-2.4 [facility] ALP [Catalytic activity/Vol] 68 U/L 45-117 [facility] ALT [Catalytic activity/Vol] 34 U/L 13-56 [facility] CO2 [Moles/Vol] 25.0 mmol/L 21.0-32.0 [facility] Globulin (S) [Mass/Vol] 3.9 g/dL 2.2-4.2 [facility] Urea nitrogen/Creatinine [Mass ratio] 12.3 mg/mg 10-20 [facility] Laboratory - Hematology and Cell countsOrdered By: Michell Woodard on 09-19-2023 MCH (RBC) [Entitic mass] 29.0 pg 27.0-32.0 [facility] MCHC (RBC) [Mass/Vol] 32.1 g/dL 32-36 [facility] Nucleated RBC/100 WBC (Bld) [Ratio] 0 % 0-5 [facility] Platelets (Bld) [#/Vol] 304 10*3/uL 150-450 [facility] Low density lipoprotein (LDL ) cholesterol measurementOrdered By: Michell Woodard on 09-19-2023 Cholesterol in LDL (Body fld) [Moles/Vol] 135 mg/dL 0-130 [facility] No Panel InformationOrdered By: Michell Woodard on 09-19-2023 Vitamin D 25-Hydroxy 23.2 ng/mL [facility] Comment on above: Vitamin D 25(OH) Sta tus Range Deficiency <20 ng/mL (50nmol/L) Insufficiency 20 - 30 ng/mL (50 - 75 nmol/L) Sufficiency 30 - 100 ng/mL (75 - 250 nmol/L) Toxicity >100 ng/mL (>250 nmol/L) Estimated GFR (MDRD) Amer 102 mL/min >60 [facility] Comment on above: GFR Calc Estimated GFR (MDRD) Non-Af Amer 84 mL/min >60 [facility] Comment on above: Non- GFR Calc Platelet mean volume Rafael-Ec ker (Bld) [Entitic vol]Ordered By: Michell Woodard on 09-19-2023 Platelet mean volume (Bld) [Entitic vol] 8.6 fL 6.2-12.0 [facility] RBC Auto (Bld) [#/Vol]Ordere d By: Michell Woodard on 09-19-2023 RBC (Bld) [#/Vol] 4.35 10*6/uL 4.2-5.4 [facility] Serum or plasma calcium harry urement (mass/volume)Ordered By: Michell Woodard on 09-19-2023 Calcium [Mass/Vol] 9.0 mg/dL 8.5-10.1 [facility] Serum or plasma creatinine m easurement (mass/volume)Ordered By: Michell Woodard on 09-19-2023 Creatinine [Mass/Vol] 0.81 mg/dL 0.55-1.02 [facility] Comment on above: The validity of the calculated GFR & GFRAA in patients over 70 years has not been determined. Clinical correlation is essential. Serum or plasma thyroid stim ulating hormone (TSH) measurement (units/volume)Ordered By: Michell Woodard on 09-19-2023 TSH Qn 1.55 uIU/mL 0.358-3.74 [facility] Serum or plasma thyroperoxid ase antibody assay (units/volume)Ordered By: Michell Woodard on 09-19-2023 TPO Ab Qn [IU]/mL 0-34 [facility] Comment on above: Performed at: [address] [id number] Director: Rodrigo Edmondson PhD, Phone: [phone] Serum or plasma urea nitroge n measurement (mass/volume)Ordered By: Michell Woodard on 09-19-2023 Urea nitrogen [Mass/Vol] 10 mg/dL 7-18 [facility] Thin prep Papanicolaou smear with manual screeningOrdered By: Michell Woodard on 09-19-2023 Thin prep Papanicolaou smear with manual screening 0.80 ng/dL 0.76-1.46 [facility] Thin prep Papanicolaou smear with manual screening 3.4 g/dL 3.2-5.0 [facility] Thin prep Papanicolaou smear with manual screening 20 U/L 15-37 [facility] Thin prep Papanicolaou smear with manual screening 2 5-15 [facility] Very low density lipoprotein (VLDL) cholesterol measurementOrdered By: Michell Woodard on 09-19-2023 Cholesterol in VLDL Calc [Moles/Vol] 34 mg/dL 5-40 [facility] Whole blood hemoglobin A1c/t otal hemoglobin ratio (mass fraction)Ordered By: Michell Woodard on 09-19-2023 HbA1c (Bld) [Mass fraction] 5.5 % 3.8-5.6 [facility] Comment on above: Normal < 5.7 % Predi abetic 5.7 - 6.4 % Diabetic >or= 6.5 % Please note range changes. CBCon 02-07-2019 Erythrocyte distribution width (RBC) [Ratio] 12.0 % Normal 11-14.5 [facility] Comment on above: Order Comment: Kailash s: M Performed By: #### L 500.62664, L500.23652, L500.50928, L500.00518 #### [facility] [address] [place] [address] Hematocrit (Bld) [Volume fraction] 37.4 % Normal 35.0-47.0 [facility] Comment on above: Order Comment: Kailash s: M Performed By: #### L 500.95895, L500.67427, L500.63515, L500.09692 #### [facility] [address] [place], [place] [id number] Hemoglobin (Bld) [Mass/Vol] 12.2 g/dL Normal 11.5-15.5 [facility] Comment on above: Order Comment: Kailash s: M Performed By: #### L 500.36327, L500.09062, L500.72855, L500.18389 #### [facility] [address] [place] [id number] MCHC (RBC) [Mass/Vol] 32.6 g/dL Normal 32.0-36.0 [facility] Comment on above: Order Comment: Campu s: M Performed By: #### L 500.50832, L500.81454, L500.61816, L500.89778 #### [facility] [address] [place] [address] MCV (RBC) [Entitic vol] 91.9 fL Normal 80.0-99.0 [facility] Comment on above: Order Comment: Campu s: M Performed By: #### L 500.07413, L500.49642, L500.83304, L500.27758 #### [facility] [address] [place] [address] Nucleated RBC/100 WBC (Bld) [Ratio] 0.0 % Normal Less than 1 [facility] Comment on above: Order Comment: Campu s: M Performed By: #### L 500.74873, L500.98561, L500.55982, L500.70673 #### [facility] [address] [place] [address] Platelet mean volume (Bld) [Entitic vol] 8.7 fL Low 9.4-12.4 [facility] Comment on above: Order Comment: Campu s: M Performed By: #### L 500.79431, L500.23921, L500.03635, L500.47167 #### [facility] [address] [place] [address] Platelets (Bld) [#/Vol] 280 K/CU MM Normal 150-450 [facility] Comment on above: Order Comment: Campu s: M Performed By: #### L 500.23808, L500.27299, L500.06765, L500.43745 #### [facility] [address] [place], [place] [id number] RBC (Bld) [#/Vol] 4.07 M/CU MM Normal 3.90-5.30 [facility] Comment on above: Order Comment: Campu s: M Performed By: #### L 500.87573, L500.07019, L500.68295, L500.15466 #### [facility] [address] [place] [address] WBC (Bld) [#/Vol] 18.7 K/CUMM High 4.5-11.0 [facility] Comment on above: Order Comment: Campu s: M Performed By: #### L 500.50481, L500.47602, L500.62928, L500.17958 #### [facility] [address] [place] [address] CONS.ONCon 02-07-2019 CONS.ONC [facility] Patient Name: HAMLET TEIXEIRA [address] [place] [address] Date of : [address] [address] Unit Number: [id number] CONSULTATION-ONC Patient Status: ADM IN Attending Doctor: Sia Ashton MD Service Date: 02/07/19 1133 CONSULTATION-ONCOLOGY Referring Physician Margaret Luna MD Consulted Provider Mode Bell MD Source of Information Patient Reason for Consult PE Living Situation Home - Independent History of Present Illness Mrs. Teixeira is a 33-year-old female with no significant past medical history. Patient presented to the emergency department yesterday for complaints of chest pain and shortness of breath. CTA of the chest done in the emergency department confirmed emboli identified in segmental and subsegmental pulmonary arteries and the lingual and left lower lobe. There are findings felt to be due to small emboli in the right lung. She was treated with a heparin drip, and is now on Xarelto 15 mg p.o. twice daily. They did a doppler on her LLE and it was negative for DVT. She states that for the last couple of weeks she was having some left lower extremity pain, she saw her PCP and they did treat her with some steroids. She states that she has been more sedentary at work over the last few weeks. The patient states that she also uses a NuvaRing as control. 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 Patient denies ever having a blood clot in the past. She is currently complaining of chest pain as well as shortness of breath. She denies any abdominal pain nausea vomiting or diarrhea or constipation. CBC for today shows a white blood cell count 18.7 hemoglobin 12.2 hematocrit 37.4 and platelet count of 280. CMP shows sodium 138 potassium 4.3 chloride 106, dioxide 26 BUN 11 creatinine 0.82. Past Medical History No significant past medical history Past Surgical History Cholecystectomy Family History Patient had a maternal grandfather with leukemia, maternal grandmother with breast cancer, paternal grandmother with breast cancer. Social History Patient is a never smoker. States that she drinks 1 alcoholic beverage per week. She is . 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 Allergies Coded Allergies: NO KNOWN DRUG ALLERGIES (02/06/19) Home Medications Etonogestrel/Ethinyl Estradiol (Nuvaring Vaginal Ring) 1 EACH VAG.RING 1 EACH VG, Ref 0 (Reported) Entered as Reported by ALLIE GARCIA on 02/06/192049 Last Action: Reviewed on 02/06/192049 by ALLIE GARCIA Inpatient Medications Medications Current Sig/Lin Start time Last Medication Dose Route Stop Time Status Admin Acetaminophen 650 MG Q4HPRN PRN 02/06 2100 AC (TYLENOL TAB) PO Melatonin 5 MG QHSPRN PRN 02/06 2100 AC (MELATONIN TAB) PO Morphine Sulfate 2 MG Q4HPRN PRN 02/06 2100 AC 02/07 (MORPHINE D.SYR) IV 0525 Ondansetron HCl 4 MG Q6HPRN PRN 02/06 2100 AC (ZOFRAN VIAL) IV Oxycodone/ 1 UDTAB Q6HPRN PRN 02/07 1000 AC 02/07 Acetaminophen PO 1012 (percoCET-5/325 TAB) Rivaroxaban 15 MG BID 02/06 2359 AC 02/07 (XARELTO TAB) PO 0842 Review of Systems As in the HPI all other systems reviewed and are negative Physical Exam Vital Signs Vital Signs (Last) Result Date Time Pulse Ox 99 02/07 0800 O2 Delivery NASAL CANNULA 02/07 0800 O2 Flow Rate 2 02/07 0800 B/P 121/63 02/07 0700 Temp 98.2 02/07 0700 Pulse 98 02/07 0700 Resp 19 02/07 0700 Physical Exam Summary General: Patient is alert and oriented x3 and is in no acute respiratory distress Neck: Neck is supple. No lymphadenopathy noted. Lungs: Clear to auscultation, no wheezing, rales, or rhonchi. Cardiac: Regular rhythm and rate, S1-S2 within normal limits, no murmurs Abdomen: Soft, nontender, nondistended, bowel sounds are positive. Extremities: No edema Skin: No rashes or breakdown. Lymphatic: Negative cervical, supra-clavicular lymphadenopathy. Neurologic: Alert and oriented x3. No focal neurological deficits. Conclusion 1. Pulmonary embolism PE. Doppler study of the left lower extremity was negative for DVT. Case discussed with Dr. Bell. VTE due to the NuvaRing, needs to be DC'd. Recommendations would be to treat with Xarelto 15 mg p.o. twice daily x21 days then go to Xarelto 20 mg p.o. daily for a total of 6 months. There is no need for a thrombophilia work-up at this time, as it would not change our treatment recommendations. Thank you very much for this consult and allowing us to participate in care of this patient during her hospitalization. Case was discussed with Dr. Bell, and she agrees with plan as stated above. Collaborating Physician Mode Bell MD Statement of Attestaion I confirm that I have evaluated the patient, reviewed the history and physical, medications, diagnostic results, physical exam, assessment and plan of care of the patient. Discontinue Nuvaring. Patient should not be placed on any estrogen-containing contraceptive or hormonal therapy due to high risk of recurrent VTE. Disclaimer This dictation was created using voice recognition software. Phonetic and/or minor grammatical errors may exist. eSign Date and Time Mode Bell MD Verified/Reviewed by 02/07/19 9052 Shai Brown CNP Verified/Reviewed by 02/07/19 1218 [facility] CONSULTATION-ONC [facility] [facility] Patient Name: HAMLET TEIXEIRA [address] Date of : [address] [place] [address] Unit Number: [id number] Progress Note-Hospitalist Patient Status: DIS IN Attending Doctor: Margaret Luna MD Service Date: 02/07/19 1408 Chief Complaint Chief Complaint Shoulder pain and chest pain Subjective S: (2 ROS minimum) Patient seen and examined at the bedside. Patient complains of chest pain , shoulder pain, SOB. She states that Percocet is not really helping her along with morphine. No complaints of nausea, diarrhea, constipation. Objective (ROS) Nursing Vitals Vital Signs (Last) Result Date Time Pulse Ox 99 02/07 08 O2 Delivery NASAL CANNULA 02/07 08 O2 Flow Rate 2 02/07 0800 B/P 121/63 02/07 07 Temp 98.2 02/07 07 Pulse 98 02/07 0700 Resp 19 02/07 0700 Appearance - PE Appears well, Awake, Alert Neck - PE Normal inspection, No JVD, Supple HEENT - PE Head atraumatic, Eyes normal inspection, PERRLA Respiratory - PE Lungs sound clear, Respirations non-labored, Symmetrical expansion Cardiovascular - PE Rate WNL, Rhythm regular Neurological - PE Alert, Oriented x 3 Abdomen - PE Bowel sounds present, Abdomen soft, Non-tender Extremity - PE Normal appearance, Full ROM Skin - PE Color normal, Skin warm, dry Medications Current Sig/Lin Start time Last Medication Dose Route Stop Time Status Admin Acetaminophen 650 MG Q4HPRN PRN 02/06 2100 AC (TYLENOL TAB) PO Melatonin 5 MG QHSPRN PRN 02/06 2100 AC (MELATONIN TAB) PO Morphine Sulfate 2 MG Q4HPRN PRN 02/06 2100 AC 02/07 (MORPHINE D.SYR) IV 0525 Ondansetron HCl 4 MG Q6HPRN PRN 02/06 2100 AC (ZOFRAN VIAL) IV Oxycodone/ 1 UDTAB Q6HPRN PRN 02/07 1000 AC 02/07 Acetaminophen PO 1012 (percoCET-5/325 TAB) Rivaroxaban 15 MG BID 02/06 2359 AC 02/07 (XARELTO TAB) PO 0842 Lab 24hr (CBC/BMP Fishbone) 02/07/19 1006: [Embedded Image Not Available] RBC 4.07, MCV 91.9, MCHC 32.6, RDW 12.0, MPV 8.7 L, Nucleated RBCs 0.0 02/06/19 1807: POC Troponin I 0.00 02/06/19 1759: [Embedded Image Not Available] Anion Gap 7, Est GFR ( Amer) Greater than 60, Est GFR (Non-Af Amer) Greater than 60 , BUN/Creatinine Ratio 14 L, Glucose 83, Total Calcium 8.8, Serum HCG, Qual NEGATIVE, RBC 4.62, MCV 92.0, MCHC 31.8 L, RDW 12.2, MPV 8.6 L, Immature Gran % (Auto) 0.6, Abs Immat Gran (auto) 0.10, Seg Neutrophils % 72.1, Lymphocytes % 20.1, Monocytes % 5.7, Eosinophils % 1.0, Basophils % 0.5, Neutrophils # 15.60 H, Lymphocytes # 4.40, Monocytes # 1.20 H, Eosinophils # 0.20, Basophils # 0.10, Nucleated RBCs 0.0 Recent Impressions (24H) COMPUTERIZED TOMOGRAPHY - CT ANG THOR W/POST PROC 02/07 1940 Report Impression - Status: SIGNED Entered: 02/06/20192001 IMPRESSION: Emboli are identified in segmental and subsegmental pulmonary arteries in the lingula and left lower lobe. There are findings felt to be due to small emboli in the right lung. Impression By: SHAHANA PENA M.D. Assessment and Plan Conclusion 1. Pulmonary embolism Assessment- --Acute segmental and subsegmental PE-unprovoked. Likely secondary to NuvaRing control. Patient started on Xarelto 15 mg twice daily for 3 weeks and then transition to 20 mg daily. Patient requiring anticoagulation for at least 6 months. Hematology following. They did not recommend thrombophilia work-up. Consulted [facility] for removal of the NuvaRing. Patient is getting an echocardiogram. Continue pain medications. Anticipating discharge tomorrow after the echo results better pain control. No evidence of DVT in the left lower extremity. --Leukocytosis-likely reactive --DVT prophylaxis-patient is on Xarelto. CODE STATUS-full code Disclaimer This dictation was created using voice recognition software. Phonetic and/or minor grammatical errors may exist. eSign Date and Time Margaret Luna MD Verified/Reviewed by 02/11/19 0938 [facility] Progress Note-Hospitalist Normal [facility] BMPon 02-06-2019 Anion gap [Moles/Vol] 7 mmol/L Normal 5-16 [facility] Comment on above: Order Comment: Campu s: M Performed By: #### L 500.37630, L500.53880, L500.65265 #### [facility] [address] [place] [address] Calcium [Mass/Vol] 8.8 mg/dL Normal 8.5-10.1 [facility] Comment on above: Order Comment: Campu s: M Performed By: #### L 500.08045, L500.23173, L500.38461 #### [facility] [place] [address] Chloride [Moles/Vol] 106 mmol/L Normal 98-107 [facility] Comment on above: Order Comment: Campu s: M Performed By: #### L 500.85855, L500.62285, L500.08506 #### [facility] [place] [id number] CO2 [Moles/Vol] 26 mmol/L Normal 21-32 [facility] Comment on above: Order Comment: Campu s: M Performed By: #### L 500.00464, L500.09399, L500.07787 #### [facility] [place] [id number] Creatinine [Mass/Vol] 0.820 mg/dL Normal 0.510- 0.[address] [facility] Comment on above: Order Comment: Campu s: M Result Comment: Kathy ents receiving either N-Acetylcysteine (NAC) or Metamizole prior to venipuncture, may have falsely depressed results. Performed By: #### L 500.15997, L500.12299, L500.73070 #### [facility] [place] [id number] Glucose [Mass/Vol] 83 mg/dL Normal 70-100 [facility] Comment on above: Order Comment: Campu s: M Result Comment: 70-1 00- Normal Fasting; 100-125 Impaired Fasting; greater than 126 on more than one result- Diabetes. ADA guidelines. Results may be falsely elevated after the administration of Sulfapyridine. Results may be falsely depressed after the administration of Sulfasalazine. Performed By: #### L 500.81903, L500.55619, L500.78419 #### [facility] [address] [place] [address] Potassium [Moles/Vol] 4.3 mmol/L Normal 3.5-5.1 [facility] Comment on above: Order Comment: Campu s: M Performed By: #### L 500.00361, L500.60685, L500.09436 #### [facility] [address] [place] [address] Sodium [Moles/Vol] 138 mmol/L Normal 136-145 [facility] Comment on above: Order Comment: Campu s: M Performed By: #### L 500.17140, L500.80179, L500.17243 #### [facility] [address] [place] [address] Urea nitrogen [Mass/Vol] 11 mg/dL Normal 7-26 [facility] Comment on above: Order Comment: Campu s: M Performed By: #### L 500.64697, L500.55765, L500.75678 #### [facility] [address] [place] [address] Urea nitrogen/Creatinine [Mass ratio] 14 mg/mg Low 15-24 [facility] Comment on above: Order Comment: Campu s: M Performed By: #### L 500.09455, L500.60485, L500.59097 #### [facility] [address] [place] [address] CBC W/DIFFon 02-06-2019 BASO ABS 0.10 K/CU MM Normal 0-0.2 [facility] Comment on above: Order Comment: Campu s: M Performed By: #### L 200.54266 #### [facility] [address] [place] [address] Basophils/100 WBC (Bld) 0.5 % Normal 0-2 [facility] Comment on above: Order Comment: Campu s: M Performed By: #### L 200.68159 #### [facility] [address] [place] [address] EOS ABS 0.20 K/CU MM Normal 0-0.5 [facility] Comment on above: Order Comment: Campu s: M Performed By: #### L 200.45120 #### [facility] [address] [place] [address] Eosinophils/100 WBC (Bld) 1.0 % Normal 0-5 [facility] Comment on above: Order Comment: Campu s: M Performed By: #### L 200.94687 #### [facility] [address] [place] [address] Erythrocyte distribution width (RBC) [Ratio] 12.2 % Normal 11-14.5 [facility] Comment on above: Order Comment: Campu s: M Performed By: #### L 200.49854 #### [facility] [address] [place] [address] Hematocrit (Bld) [Volume fraction] 42.5 % Normal 35.0-47.0 [facility] Comment on above: Order Comment: Campu s: M Performed By: #### L 200.93728 #### [facility] [address] [place], [place] [id number] Hemoglobin (Bld) [Mass/Vol] 13.5 g/dL Normal 11.5-15.5 [facility] Comment on above: Order Comment: Campu s: M Performed By: #### L 200.84615 #### [facility] [address] [place] [address] IMMATR GRAN ABS 0.10 K/CU MM Normal Less than 2 [facility] Comment on above: Order Comment: Campu s: M Performed By: #### L 200.71432 #### [facility] [address] [place] [address] IMMATURE GRAN % 0.6 % Normal Less than 2 [facility] Comment on above: Order Comment: Campu s: M Performed By: #### L 200.66850 #### [facility] [address] [place] [address] Lymphocytes (Bld) [#/Vol] 4.40 K/CU MM Normal 0.9-4.4 [facility] Comment on above: Order Comment: Campu s: M Performed By: #### L 200.27204 #### [facility] [address] [place] [address] Lymphocytes/100 WBC (Bld) 20.1 % Normal 20-40 [facility] Comment on above: Order Comment: Campu s: M Performed By: #### L 200.49699 #### [facility] [address] [place] [address] MCHC (RBC) [Mass/Vol] 31.8 g/dL Low 32.0-36.0 [facility] Comment on above: Order Comment: Campu s: M Performed By: #### L 200.82088 #### [facility] [address] [place] [address] MCV (RBC) [Entitic vol] 92.0 fL Normal 80.0-99.0 [facility] Comment on above: Order Comment: Campu s: M Performed By: #### L 200.65333 #### [facility] [address] [place] [address] MONO ABS 1.20 K/CU MM High 0.1-1.1 [facility] Comment on above: Order Comment: Campu s: M Performed By: #### L 200.39881 #### [facility] [address] [place] [address] Monocytes/100 WBC (Bld) 5.7 % Normal 2-10 [facility] Comment on above: Order Comment: Campu s: M Performed By: #### L 200.12887 #### [facility] [address] [place] [address] NEUTROPHIL ABS 15.60 K/CU MM High 2.0-8.3 [facility] Comment on above: Order Comment: Campu s: M Performed By: #### L 200.98423 #### [facility] [address] [place] [address] Neutrophils/100 WBC (Bld) 72.1 % Normal 45-75 [facility] Comment on above: Order Comment: Campu s: M Performed By: #### L 200.85807 #### [facility] [address] [place] [address] Nucleated RBC/100 WBC (Bld) [Ratio] 0.0 % Normal Less than 1 [facility] Comment on above: Order Comment: Campu s: M Performed By: #### L 200.31036 #### [facility] [address] [place] [address] Platelet mean volume (Bld) [Entitic vol] 8.6 fL Low 9.4-12.4 [facility] Comment on above: Order Comment: Campu s: M Performed By: #### L 200.52314 #### [facility] [address] [place] [address] Platelets (Bld) [#/Vol] 300 K/CU MM Normal 150-450 [facility] Comment on above: Order Comment: Campu s: M Performed By: #### L 200.02472 #### [facility] [address] [place] [address] RBC (Bld) [#/Vol] 4.62 M/CU MM Normal 3.90-5.30 [facility] Comment on above: Order Comment: Campu s: M Performed By: #### L 200.28138 #### [facility] [address] [place] [address] WBC (Bld) [#/Vol] 21.7 K/CUMM High 4.5-11.0 [facility] Comment on above: Order Comment: Campu s: M Performed By: #### L 200.76874 #### [facility] [address] [place] [address] CDLECHOon 02-06-2019 CDLECHO INTERPRETING PHYSICI AN: Tammy Henson MD ATTENDING PHYSICIAN: Sia Ashton MD ORDERING/REFERRING PHYSICIAN: DATE OF STUDY: 02/07/2019 TECH #: 17 MMC: MOBILE: Weight: 214 lbs. oz. Height: 63 ins. BP: 120/60 HR: Patient is in sinus rhythm at 90 beats per minute. BSA: 2.0 meters square. DIAGNOSIS/REASON FOR STUDY: A 33-year-old female with history of pulmonary emboli in the segmental and subsegmental pulmonary arteries in the lingula and left lower lobe. Patient is now referred for an echocardiogram. Complete Echo (TTE) X Limited Echo Transesophageal (NITIN) Definity ACTUAL VALUES ADULTS CHILDREN 1. Aortic Valve Normal: Abnormal: Aortic Valve Systolic Opening 1.5 - 2.5 cm. Aortic Root Dimension 3.1 2.0 - 4.0 cm. B. Left Atrial Diameter 17 cm2 < 4.0 cm. C. Left Ventricle End Diastolic Diameter 5.0 < 5.5 cm. End Systolic Diameter 3.4 < 3.5 cm. D. Right Ventricle End Diastolic Diameter < 2.5 cm. E. Septal Wall Thickness End Diastole 0.9 < 1.3 cm. Systole 1.1 F. Posterior Wall Thickness < 1.3 cm. End Diastole 0.9 End Systole 1.2 Left ventricle: The left ventricle has normal dimensions. The visually estimated [facility] PATIENT NAME: HAMLET TEIXEIRA Carisa Pham MEDICAL REC #: [id number] [place] [address] ADMIT DATE: 02/06/19 DISCHARGE DATE: 02/08/19 ATTENDING PHY: Sia Ashton MD ECHOCARDIOGRAM REPORT ejection fraction is 55% to 60% with normal wall motion. Left atrium: The left atrium is normal dimensions. Right atrium and right ventricle with normal dimensions. Normal right ventricular systolic function. No masses, clots, or thrombi on this transthoracic echocardiogram. Aortic valve: The aortic valve is trileaflet. There is adequate aortic valve excursion. No evidence of aortic stenosis. The mean gradient is 5 mmHg. Mitral valve: The mitral valve has adequate mitral valve excursion. No evidence of mitral stenosis. The mean gradient is 2 mmHg. Tricuspid valve: Grossly normal. Pulmonic valve: Not optimally visualized and grossly normal. Color Doppler interrogation reveals: 1. Mild mitral and tricuspid regurgitation. 2. Atrial septum is intact. 3. No pericardial effusion. IMPRESSION: 1. Normal left ventricular dimensions with visually estimated ejection fraction of 55% to 60% with normal wall motion. 2. Normal left atrial dimensions. 3. Mild mitral and tricuspid regurgitation. Tammy Henson MD [id number] [facility] File#: [id number] Verified/Reviewed by [id number] PATIENT NAME: HAMLET TEIXEIRA Carisa Pham MEDICAL REC #: [id number] [place] [address] ADMIT DATE: 02/06/19 DISCHARGE DATE: 02/08/19 ATTENDING PHY: Sia Ashton MD ECHOCARDIOGRAM REPORT Normal [facility] ECHOCARDIOGRAM REPORT Normal [facility] CT ANG THOR W/POST PROCon CT ANG THOR W/POST PROC CT ANG THOR W/POST PROC Ordering Physician: Jenna Cole 02/06/2019 5:45 PM COMPUTED TOMOGRAPHIC ANGIOGRAPHY OF THE THORAX Clinical Statement: Shortness of breath, chest pain, evaluate for pulmonary emboli TECHNIQUE: 1.25 mm thick axial images of the thorax were obtained following the administration of 85 cc of Isovue-370 intravenous contrast. Multiple coronal and 3-dimensional images were reconstructed and reviewed by the radiologist on an independent workstation. There were no prior studies available for comparison. FINDINGS: No pleural or pericardial effusions are seen. The aorta shows no acute abnormalities. There are emboli within the segmental and subsegmental arteries of the lingula and the left lower lobe. There are areas of diminished attenuation in some of the right pulmonary arteries with some the areas felt to be due to small emboli. There are infiltrative changes in the lingula and left lower lobe. There is a small hiatal hernia. IMPRESSION: Emboli are identified in segmental and subsegmental pulmonary arteries in the lingula and left lower lobe. There are findings felt to be due to small emboli in the right lung. ---- Electronic Signature on File ---- Signed By: Scott Pena MD FACR [email or web address] Dictated: 02/06/2019 7:53 PM Signed: 02/06/2019 7:56 PM Reported By: SCOTT PENA M.D. Signed By: SCOTT PENA M.D. [facility] 02-06-2019 EMERGENCY PHYSICIAN REPORT This is a preliminary report only, as the practitioner review and authentication has not occurred. [facility] ER PHYSICIAN ASSESSMENT RECORDS : FlexChartData Event Time: 02/06/2019 20:55 Status: Signed [facility] Hamlet Teixeira [[id number]] Attending Physician 1985 Chart (V2b) Chart created at 02/06/2019 20:14 by Ryan Saldana Chart closed at 02/06/2019 20:22 Entry in Emergency Department at 02/06/2019 16:42 Patient Name: Hamlet Teixeira Record Number: [id number] Date: 02/06/2019 20:14 Entered Department at: 02/06/2019 16:42 Patient Seen at: 02/06/2019 20:05 Decision to Admit at: 02/06/2019 20:23 Historian: Patient PCP: Sommer Flynn Chief Complaint:PT PRESENTS WITH LEFT ARM PAIN AND SHORTNESS OF BREATH/ SENT BY PCP TO R/O PE Triage Note reviewed and Initial Vital Signs reviewed. Temperature: 97.9 F (36.6 C). Pulse: 117. Respiratory Rate: 18. Blood-pressure: 164/91. Oxygen Saturation: 100%. History of Present Illness: Patient complaining of sudden onset of left-sided chest pain, she saw her PCP today and was referred to the ER for assessment of a PE. She denies any headache, vomiting, fevers, chills. 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 HPI Elements: Onset: Days ago; Timing: Sudden Onset; [facility] PATIENT NAME: HAMLET TEIXEIRA [address] [facility] [address] Pham MEDICAL REC #: [id number] [place] [address] EMERGENCY DEPARTMENT REPORT EMERGENCY DEPARTMENT PHYSICIAN Quality: Aching and Stabbing; Severity: maximum Moderate, now Moderate; Context: At Rest; Exacerbated by: Deep Breath and Movement; Alleviated by: Nothing Review of Systems. Constitutional: negative for Fever Eyes: negative for Eye Pain Ear/Nose/Throat: negative for Sore Throat Cardio-Vascular: positive for Chest Pain Respiratory: positive for Dyspnea, negative for Hemoptysis GI: negative for Abd. Pain : negative for Hematuria Musculo-Skeletal: negative for Back Pain Neurological: negative for Headache Hem/Endo: negative for Bleeding Immunology: negative for Joint Pain Past History, Medications, Allergies, Social History and Family History reviewed in nurses note. Medications: Reviewed RN Note. NUVARING VAGINAL RING - VAG, per pt 02/06/19, NAPROXEN 250MG TABLET - PO Allergies: Reviewed RN Note No Known Allergies Social History: Reviewed RN Note. Family History: Reviewed RN Note Physical Examination: General: Alert and Well Developed; Resting comfortably, speaking full sentences HEENT: Normal ENT inspection. Neck: Supple Respiratory: No Resp Distress Cardio-Vascular: RRR Abdomen: Non-tender and Soft Back: Non-tender Extremity: No edema Neurological: No Gross Weakness Skin: Warm and Dry Psychological: Mood/Affect Normal CBC W/DIFF, information as of 02/06/2019, 5:59 pm 92.0 / 13.5 / 21.7* andgt;------andlt; 300 / 42.5 / N:72.1 [facility] PATIENT NAME: HAMLET TEIXEIRA [facility] [address] Pham MEDICAL REC #: [id number] [place] [address] EMERGENCY DEPARTMENT REPORT EMERGENCY DEPARTMENT PHYSICIAN BASO ABS: 0.10 K/Cu Mm; BASOPHIL %: 0.5 %; EOS ABS: 0.20 K/Cu Mm; EOSINOPHIL %: 1.0 %; IMMATR GRAN ABS: 0.10 K/Cu Mm; IMMATURE GRAN %: 0.6 %; LYMPH %: 20.1 %; LYMPH ABS: 4.40 K/Cu Mm; MCHC: 31.8 Gm/Dl; MONO ABS: 1.20 K/Cu Mm; MONOCYTE %: 5.7 %; MPV: 8.6; NEUTROPHIL ABS: 15.60 K/Cu Mm; NRBC: 0.0 %; RBC: 4.62 M/Cu Mm; RDW: 12.2 BMP, information as of 02/06/2019, 5:59 pm 138 --------+--------+--------an beulah; 83 Anion Gap = 7 4.3 BUN/CREA: 14; CALCIUM TOTAL: 8.8 Mg/Dl HCG, information as of 02/06/2019, 5:59 pm HCG SER RESULT: Neg TROPONIN I POC, information as of 02/06/2019, 6:07 pm POC Trop-I: 0.00 Cardiogram: Interpreted by me. Read Time: 02/06/2019 20:17 Rate: 108 bpm. Rate TachycardiaRhythm Sinus RhythmAxis NormalIntervals NormalQRS NormalST/T Normal Comparison: No old Cardiogram available for comparison Monitor / Rhythm Strip: NSR and Tachy Imaging Study Obtained: CT ANGIO (THORAX) FOR PE Imaging Study Obtained: CT ANG THOR W/POST PROC, Status:Signed Report Available CT ANG THOR W/POST PROC Ordering Physician: Jenna Cole 02/06/2019 5:45 PM COMPUTED TOMOGRAPHIC ANGIOGRAPHY OF THE THORAX Clinical Statement: Shortness of breath, chest pain, evaluate for pulmonary emboli TECHNIQUE: 1.25 mm thick axial images of the thorax were [facility] PATIENT NAME: HAMLET TEIXEIRA [address] [facility] [address] Pham MEDICAL REC #: [id number] [place] [id number] EMERGENCY DEPARTMENT REPORT EMERGENCY DEPARTMENT PHYSICIAN obtained following the administration of 85 cc of Isovue-370 intravenous contrast. Multiple coronal and 3-dimensional images were reconstructed and reviewed by the radiologist on an independent workstation. There were no prior studies available for comparison. FINDINGS: No pleural or pericardial effusions are seen. The aorta shows no acute abnormalities. There are emboli within the segmental and subsegmental arteries of the lingula and the left lower lobe. There are areas of diminished attenuation in some of the right pulmonary arteries with some the areas felt to be due to small emboli. There are infiltrative changes in the lingula and left lower lobe. There is a small hiatal hernia. IMPRESSION: Emboli are identified in segmental and subsegmental pulmonary arteries in the lingula and left lower lobe. There are findings felt to be due to small emboli in the right lung. [facility] PATIENT NAME: HAMLET TEIXEIRA [address] [facility] [address] Pham MEDICAL REC #: [id number] [place] [id number] EMERGENCY DEPARTMENT REPORT EMERGENCY DEPARTMENT PHYSICIAN ---- Electronic Signature on File ---- Signed By: Scott Pena MD FACR [email or web address] Dictated: 02/06/2019 7:53 PM Signed: 02/06/2019 7:56 PM Reported By: SCOTT PENA M.D. Radiology: Image Reviewed and Interpreted by Radiologist. Medical Decision Making Patient has PE, she will be started on IV heparin and admitted to the hospital. She is really no distress she is having some pain now. Duplex imaging of the leg showed no signs of DVT Re-Evaluation: 20:18: Symptoms Improved. Examination Improved. Consults: 20:18: Hospitalist; Additional Information: Discussed Results, Diagnosis and Follow-Up with Patient. Clinical Impression: 1. Acute multiple bilateral pulmonary emboli Critical Care Time: 40 minutes, excluding billable procedures. The aggregate critical time was 40 minutes in direct care for this patient either at the bedside or elsewhere in the Emergency Department. This time is in addition to time spent performing other reported procedures. Diagnosis for Admit: Acute multiple bilateral pulmonary emboli.. [facility] PATIENT NAME: HAMLET TEIXEIRA [facility] [address] Pham MEDICAL REC #: [id number] [place] [address] EMERGENCY DEPARTMENT REPORT EMERGENCY DEPARTMENT PHYSICIAN Disposition: Admitted at 06 Feb 2019, 20:22. MSE completed. I was the primary ED attending.. 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 [employer] Patient: HAMLET TEIXEIRA Sex: F : 1985 Age: 33 yr Account No: [id number] Registration Date: 16:42 02/06/2019 Address: [address] [place] [address] Address: [place] [address] REGISTRATION ED Number: [id number] Marital Status: M Financial Class: PPO TRIAGE Priority: 3 - Urgent Complaint: Shortness of Breath Stated Complaint: PT PRESENTS WITH LEFT ARM PAIN AND SHORTNESS OF BREATH/ SENT BY PCP TO R/O PE Arrival Date: 02/06/2019 16:42 Triage Date: 02/06/2019 16:42 Mode of Arrival: *Privately Owned Vehicle Transfer From: * Home WC: N Language: Indonesian [facility] PATIENT NAME: HAMLET TEIXEIRA [address] [facility] [address] Pham MEDICAL REC #: [id number] [place] [address] EMERGENCY DEPARTMENT REPORT EMERGENCY DEPARTMENT PHYSICIAN Transport: Ambulatory/Walk In BED ST D In: 02/06/2019 17:18:29 02/06/2019 17:18:[address] [facility] (Removed From) Out: 02/06/2019 17:18:56 02/06/2019 17:18:[address] C In: 02/06/2019 17:36:39 02/06/2019 17:36:[address] C (Removed From) Out: 02/06/2019 18:09:24 02/06/2019 18:09:24 [facility] D46 In: 02/06/2019 18:09:24 02/06/2019 18:09:24 [facility] D46 (Removed From) Out: 02/06/2019 21:54:11 02/06/2019 21:54:11 ACU PROVIDERS FORREST Cole Provider Contact: 02/06/2019 17:39:07 [place] [place] End: LORRIE AVENDANO Provider Contact: 02/06/2019 18:24:30 SERAFIN End: MD Ryan Saldana Provider Contact: 02/06/2019 20:05:12 [facility] End: IRINA GLEZ Provider Contact: 02/06/2019 21:32:56 ACU End: TRIAGE HISTORY ALLERGIES [facility] PATIENT NAME: HAMLET TEIXEIRA Carisa Pham MEDICAL REC #: [id number] [place] [address] EMERGENCY DEPARTMENT REPORT EMERGENCY DEPARTMENT PHYSICIAN Allergic To: No Known Allergies - 02/06/2019 16:44 [facility] CURRENT MEDS Name: NUVARING VAGINAL RING - VAG 02/06/2019 19:04 SERAFIN Name: per pt 02/06/19 02/06/2019 19:04 SERAFIN Name: NAPROXEN 250MG TABLET - PO 02/06/2019 19:04 SERAFIN Freq: PRN ILLNESS Illness: *None 02/06/2019 16:44 [facility] PAST SURGERY HIST Surgery: Cholecystectomy 02/06/2019 16:44 K[facility] PAST SOCIAL HIST Social History: Behavior age appropriate 02/06/2019 16:44 [facility] Social History: Communicates without difficulty 02/06/2019 16:44 [facility] Social History: Lives with family or significant other 02/06/2019 16:44 [facility] Social History: Alcohol - None 02/06/2019 16:44 [facility] Social History: Smoker-None 02/06/2019 16:44 [facility] Social History: Recreational Drugs - None 02/06/2019 16:44 [facility] Social History: Have you traveled in the past month? Where no 02/06/2019 16:44 [place] [employer] HIST Social History: Gravida2 Para 1 Ab 02/06/2019 16:44 [facility] IMMUNIZATIONS Immunization: Flu Vaccine-yes 02/06/2019 16:44 [facility] PATIENT NAME: HAMLET TEIXEIRA Carisa Pham MEDICAL REC #: [id number] [place] [address] EMERGENCY DEPARTMENT REPORT EMERGENCY DEPARTMENT PHYSICIAN NURSING ASSESSMENT ASSESSMENT NOTES 02/06/2019 18:57 Pt c/o left leg pain. pt has been seen by PCP for pain, was put on course of steroids, per pt I finished them a few days ago and now my leg is getting red and sensitive to touch and it hurts to take deep breaths and I noticed my left shoulder hurting as well. Pt denies any SOB at rest, denies CP/N/V/D/fever/chills. Lungs CTA. Pt does not have red patch on leg at this time. NO edema or warmth, pedal pulses 1+ bilaterally. Respirations easy and unlabored .AOx4 02/06/2019 19:01 SERAFIN 02/06/2019 21:15 Report called to Rosie MCDONALD on 9M 02/06/2019 21:15 SERAFIN 02/06/2019 21:51 PT TAKEN TO THE FLOOR BY CHILD CARE CENTRE MANAGER 02/06/2019 21:52 ACU TREATMENT 02/06/2019 20:13 Physician Call - Dr. ASHTON called at 200702/06/2019 20:14 [facility] [place] 02/06/2019 20:13 Physician Call - Dr. ASHTON answered at 200702/06/2019 20:14 [facility] [place] 02/06/2019 20:59 Medication Verification - Heparin dose verified at bedside with Candice Ocampo RN 02/06/2019 21:02 SERAFIN 02/06/2019 21:16 Medication Verification - Heparin dose verified at bedside with Tasha MCDONALD 02/06/2019 21:17 BRR MEDICATIONS IV [facility] PATIENT NAME: HAMLET TEIXEIRA [address] [facility] [address]am MEDICAL REC #: [id number] [place] [address] EMERGENCY DEPARTMENT REPORT EMERGENCY DEPARTMENT PHYSICIAN IV Fluid: B 02/06/2019 19:03 02/06/2019 19:03 SERAFIN Line #: 1 Rate: ml/hr Location: antecubital fossa left Ndl Gauge: 20 # Attempts: 1 Notes: started in triage IV Fluid: S 02/06/2019 19:03 02/06/2019 21:01 SERAFIN Line #: 1 Fluid: 0.9% NS 1000cc bag Rate: ml/hr 999 Location: antecubital fossa left Ndl Gauge: 20 # Attempts: 1 Amt: 999 IV Fluid: D 02/06/2019 21:01 02/06/2019 21:01 SERAFIN Line #: 1 Fluid: 0.9% NS 1000cc bag Rate: ml/hr 999 Location: antecubital fossa left Ndl Gauge: 20 # Attempts: 1 I AND O VITALS VS-ROUTINE Time: 02/06/2019 16:48 B/P: 164/91 - Right Upper Arm - Sitting - Machine Pulse: 117 - Monitor Resp: 18 Sa02: 100 Room Air Temp: 97.90 F - Oral 02/06/2019 16:50 DEP VS-Pain Time: 02/06/2019 16:48 Pain Level: 6 02/06/2019 16:50 DEP VS-GCS Time: 02/06/2019 16:48 02/06/2019 16:50 DEP VS-HT/WT Time: 02/06/2019 16:48 Ht: 63 in. Stated Weight: 215 lbs Stated 02/06/2019 16:50 DEP VS-Visual Time: 02/06/2019 16:48 02/06/2019 16:50 DEP VS-FHT Time: 02/06/2019 16:48 02/06/2019 16:50 DEP VS-Notes Time: 02/06/2019 16:48 map-119 02/06/2019 16:50 DEP VS-ROUTINE Time: 02/06/2019 19:01 B/P: 140/84 - Right Upper Arm - Lying - Machine Pulse: 101 - Monitor Resp: 18 Sa02: 99 Room Air 02/06/2019 19:02 SERAFIN [facility] PATIENT NAME: HAMLET TEIXEIRA [address] [facility] [address]am MEDICAL REC #: [id number] [place] [address] EMERGENCY DEPARTMENT REPORT EMERGENCY DEPARTMENT PHYSICIAN VS-Pain Time: 02/06/2019 19:01 Pain Level: 6 02/06/2019 19:02 SERAFIN VS-GCS Time: 02/06/2019 19:01 02/06/2019 19:02 SERAFIN VS-HT/WT Time: 02/06/2019 19:01 02/06/2019 19:02 SERAFIN VS-Visual Time: 02/06/2019 19:01 02/06/2019 19:02 SERAFIN VS-FHT Time: 02/06/2019 19:01 02/06/2019 19:02 SERAFIN VS-Notes Time: 02/06/2019 19:01 MAP 104 02/06/2019 19:02 SERAFIN VS-ROUTINE Time: 02/06/2019 20:36 02/06/2019 20:37 SERAFIN VS-Pain Time: 02/06/2019 20:36 02/06/2019 20:37 SERAFIN VS-GCS Time: 02/06/2019 20:36 02/06/2019 20:37 SERAFIN VS-HT/WT Time: 02/06/2019 20:36 Weight: 99 kg 02/06/2019 20:37 SERAFIN VS-Visual Time: 02/06/2019 20:36 02/06/2019 20:37 SERAFIN VS-FHT Time: 02/06/2019 20:36 02/06/2019 20:37 SERAFIN VS-Notes Time: 02/06/2019 20:36 02/06/2019 20:37 SERAFIN VS-ROUTINE Time: 02/06/2019 21:03 B/P: 139/86 - Left Upper Arm - Lying - Machine Pulse: 106 - Monitor Resp: 18 Sa02: 99 Room Air 02/06/2019 21:04 SERAFIN VS-Pain Time: 02/06/2019 21:03 Pain Level: 4 02/06/2019 21:04 SERAFIN VS-GCS Time: 02/06/2019 21:03 02/06/2019 21:04 SERAFIN VS-HT/WT Time: 02/06/2019 21:03 02/06/2019 21:04 SERAFIN VS-Visual Time: 02/06/2019 21:03 02/06/2019 21:04 SERAFIN VS-FHT Time: 02/06/2019 21:03 02/06/2019 21:04 SERAFIN VS-Notes Time: 02/06/2019 21:03 MAP 106 02/06/2019 21:04 SERAFIN ORDERS Admit patient 02/06/2019 20:23 N/A Ordered: 02/06/2019 20:23 By . Other Reviewed: 02/06/2019 20:23 By . Other Toradol (IV)*(30mg/ml) DOSE: 15 mg IV 02/06/2019 20:46 [facility] PATIENT NAME: HAMLET TEIXEIRA [address] MEDICAL REC #: [id number] [place] [id number] EMERGENCY DEPARTMENT REPORT EMERGENCY DEPARTMENT PHYSICIAN N/A Ordered: 02/06/2019 20:11 By Ryan Saldana Completed Time: 02/06/2019 20:46 By Ryan Saldana Noted Time: 02/06/2019 20:15 SERAFIN Morphine (IV)*(4mg/ml) DOSE:4 mg IV 02/06/2019 20:46 N/A Ordered: 02/06/2019 20:11 By Ryan Saldana Completed Time: 02/06/2019 20:46 By Ryan Saldana Noted Time: 02/06/2019 20:15 SERAFIN Heparin High Dose Bolus for DVT/PE(IV)*(5000units/1ml) per Protocolmax 8750 units PHA DISPENSE: 5000 units IV 02/06/2019 21:01 N/A Ordered: 02/06/2019 20:05 By Ryan Saldana Completed Time: 02/06/2019 21:01 By Ryan Saldana Noted Time: 02/06/2019 20:39 SERAFIN Heparin High Dose Drip for DVT/PE(IV)(25,000units/250ml D5W) per Protocol max 2250units/hr PHA DISPENSE: 1 set IV 02/06/2019 21:01 N/A Ordered: 02/06/2019 20:05 By Ryan Saldana Completed Time: 02/06/2019 21:01 By Ryan Saldana Noted Time: 02/06/2019 20:39 SERAFIN [employer]ATION MARKETING MANAGER ORDER: GFRP 02/06/2019 18:32 None Ordered: 02/06/2019 18:32 Completed Time: 02/06/2019 18:32 Results Time: 02/06/2019 18:32 LEAD [employer]ATION MARKETING MANAGER ORDER: POCTROP 02/06/2019 18:22 None Ordered: 02/06/2019 18:22 Completed Time: 02/06/2019 18:22 Results Time: 02/06/2019 18:22 IV hep lock 02/06/2019 18:03 N/A Ordered: 02/06/2019 17:45 By Jenna Cole Completed Time: 02/06/2019 18:03 By Jenna Cole IV NS bolus 1L over 60 min 02/06/2019 19:01 [facility] PATIENT NAME: HAMLET TEIXEIRA [facility] [address] [facility] MEDICAL REC #: [id number] [place] [id number] EMERGENCY DEPARTMENT REPORT EMERGENCY DEPARTMENT PHYSICIAN N/A Ordered: 02/06/2019 17:45 By Jenna Cole Noted Time: 02/06/2019 19:01 SERAFIN CBC with diff 02/06/2019 18:16 N/A Ordered: 02/06/2019 17:45 By Jenna Cole Completed Time: 02/06/2019 18:16 By Jenna Cole Noted Time: 02/06/2019 18:03 ANF Results Time: 02/06/2019 18:16 BMP 02/06/2019 18:32 N/A Ordered: 02/06/2019 17:45 By Jenna Cole Completed Time: 02/06/2019 18:32 By Jenna Cole Noted Time: 02/06/2019 18:03 ANF Results Time: 02/06/2019 18:32 POC troponin 02/06/2019 18:57 N/A Ordered: 02/06/2019 17:45 By Jenna Cole Completed Time: 02/06/2019 18:56 By Jenna Cole Noted Time: 02/06/2019 18:03 ANF EKG and most recent EKG 02/06/2019 18:11 N/A Ordered: 02/06/2019 17:45 By Jenna Cole Completed Time: 02/06/2019 18:[address] chest with con for PE 02/06/2019 20:04 N/A Ordered: 02/06/2019 17:45 By Jenna Cole Completed Time: 02/06/2019 20:04 By Jenna Cole Indication: Shortness of Breath pain Noted Time: 02/06/2019 19:50 Question: Are you or think you might be ? Answer: PENDING Question: Patient has history of true RCM allergy? Answer: NO (serum) 02/06/2019 18:32 N/A Ordered: 02/06/2019 17:45 By Jenna Coel Completed Time: 02/06/2019 18:32 By Jenna Cole Noted Time: 02/06/2019 18:03 ANF Results Time: 02/06/2019 18:32 [facility] PATIENT NAME: HAMLET TEIXEIRA [address] [facility] [address] MEDICAL REC #: [id number] [place] [id number] EMERGENCY DEPARTMENT REPORT EMERGENCY DEPARTMENT PHYSICIAN Duplex venous lower limb 02/06/2019 17:45 N/A Ordered: 02/06/2019 17:45 By Jenna Cole Question: How is patient transported? (A = Ambulatory, B = Bed, C = Carry, CR = Crib, P = Portable, S = Stretcher, W = Wheelchair, X = Wide Wheelchair, XT = Trauma X RM17 (ED Only)) Answer: STRETCHER Question: Right or Left? Answer: LEFT DISCHARGE Diagnosis: Acute multiple bilateral pulmonary emboli 02/06/2019 20:23 Disposition: Time: 02/06/2019 20:23 Discharge Time: 02/06/2019 21:54 Type: Admission Condition: Stable for admission/discharge/transfer after emergency evaluation/treatment Category: *NOT APPLICABLE Referral: 02/06/2019 20:23 Admit To: *Bed Type - Telemetry Admit Physician: Rayne Coffeyists PRESCRIPTIONS CHARGES 0.9% NS 1000cc bag QTY @ 1 02/06/2019 19:03 SERAFIN Auto Generated Charge SIGNATURE Ryan Saldana MD [facility] CHAVO DE LA ROSA RN [facility] Jenna [facility] PATIENT NAME: HAMLET TEIXEIRA [facility] MEDICAL REC #: [id number] [place] [address] EMERGENCY DEPARTMENT REPORT EMERGENCY DEPARTMENT PHYSICIAN XI HEREDIA LORRIE AVENDANO SERAFIN [facility] PATIENT NAME: HAMLET TEIXEIRA [facility]am MEDICAL REC #: [id number] [place] [address] EMERGENCY DEPARTMENT REPORT EMERGENCY DEPARTMENT PHYSICIAN Normal [facility] Chris IRVIN ESTon 02-06-2019 IF AMER Greater than 60 Normal [facility] Comment on above: Order Comment: Kailash Colon Performed By: #### L 500.57174, L500.41359, L500.87353 #### [facility] [place] [address] IF non-AFR AMER Greater than 60 Normal [facility] Comment on above: Order Comment: Campu s: M Performed By: #### L 500.05128, L500.55589, L500.30476 #### [facility] [address] [place] [address] HCGon 02-06-2019 HCG Qn Negative Normal NEGATIVE [facility] Comment on above: Order Comment: Campu s: M Performed By: #### L 500.97240, L500.31294, L500.66707 #### [facility] [address] [place] [id number] [email or web address] 02-06-2019 Admission-H&P Normal [facility] HP.IMS.ADM [facility] Patient Name: HAMLET TEIXEIRA [address] [place] [address] Date of : [address] [place] [address] Unit Number: [id number] Admission-HandP Patient Status: REG ER Attending Doctor: Tiffanie Zhou,Emergency Physicians Service Date: 02/06/192055 History of Present Illness Source of Information Patient Chief Complaint/Present Illness: Chief complaint: Dyspnea on exertion CODE STATUS: Full code PCP: Dr. Sommer Richards Living Situation Home - Independent History of Present Illness Ms. Teixeira is a 33-year-old white female who presents today with dyspnea on exertion and left shoulder pain. She reports having had left lower leg pain 2 to 3 weeks ago along with swelling. Here in the emergency room her chest x-ray was essentially negative however CT scan did show segmental and subsegmental small pulmonary emboli in the left lower lung and very small emboli in the right lower lung. Her risk factors for PE would include sedentary lifestyle, NuvaRing for control and mild obesity. Patient states her left arm and shoulder has been hurting and is tearful at the moment. There is no evidence of hypoxia she is hemodynamically stable. There is no evidence of right heart strain on the CT scan therefore echocardiogram was not done. At this time the ER physician has ordered heparin therapy and she will be admitted to our service with transition to p.o. Xarelto in the a.m. and possible discharge if she remains a stable. Of note, bilateral lower extremity Doppler studies were done and were negative for DVT at this time. Past Medical/Surgical Hx Past Medical History Negative past medical history Past Surgical History Cholecystectomy Family/Social History Family History FATHER FH: hypertension FHx: diabetes mellitus High cholesterol MOTHER FH: hypertension High cholesterol Substances Denies use of: Alcohol, Tobacco, Recreational Drugs. Social Hx Patient lives at home with her and son. She works as a [employer]. 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 She reports a sedentary lifestyle. She also uses a NuvaRing for control. She is a non-smoker. She is obese. No history of cancer. Advance Directives Advance Directives Full Code Allergies/Home Medications Allergies Coded Allergies: NO KNOWN ALLERGENS (01/17/16) Home Medications Etonogestrel/Ethinyl Estradiol (Nuvaring Vaginal Ring) 1 EACH VAG.RING 1 EACH VG, Ref 0 (Reported) Entered as Reported by ALLIE GARCIA on 02/06/192049 Last Action: Reviewed on 02/06/192049 by ALLIE GARCIA Other Med Notes Laboratory Tests 02/06 02/06 3295 0977 Chemistry Sodium (136 - 145 MMOL/L) 138 Potassium (3.5 - 5.1 MMOL/L) 4.3 Chloride (98 - 107 MMOL/L) 106 Carbon Dioxide (21 - 32 MMOL/L) 26 Anion Gap (5 - 16 MMOL/L) 7 BUN (7 - 26 MG/DL) 11 Creatinine (0.510 - 0.950 MG/DL) 0.820 Est GFR ( Amer) (ML/MIN) Greater than 60 Est GFR (Non-Af Amer) (ML/MIN) Greater than 60 BUN/Creatinine Ratio (15 - 24) 14 L Glucose (70 - 100 MG/DL) 83 Total Calcium (8.5 - 10.1 MG/DL) 8.8 POC Troponin I (0.0 - 0.06 NG/ML) 0.00 Serum HCG, Qual (NEGATIVE) NEGATIVE Hematology WBC (4.5 - 11.0 K/CUMM) 21.7 H RBC (3.90 - 5.30 M/CU MM) 4.62 Hgb (11.5 - 15.5 G/DL) 13.5 Hct (35.0 - 47.0 %) 42.5 MCV (80.0 - 99.0 fl) 92.0 MCHC (32.0 - 36.0 GM/DL) 31.8 L RDW (11 - 14.5) 12.2 Plt Count (150 - 450 K/CU MM) 300 MPV (9.4 - 12.4) 8.6 L Immature Gran % (Auto) (Less than 2 %) 0.6 Abs Immat Gran (auto) (Less than 2 K/CU MM) 0.10 Seg Neutrophils % (45 - 75 %) 72.1 Lymphocytes % (20 - 40 %) 20.1 Monocytes % (2 - 10 %) 5.7 Eosinophils % (0 - 5 %) 1.0 Basophils % (0 - 2 %) 0.5 Neutrophils # (2.0 - 8.3 K/CU MM) 15.60 H Lymphocytes # (0.9 - 4.4 K/CU MM) 4.40 Monocytes # (0.1 - 1.1 K/CU MM) 1.20 H Eosinophils # (0 - 0.5 K/CU MM) 0.20 Basophils # (0 - 0.2 K/CU MM) 0.10 Nucleated RBCs (Less than 1 %) 0.0 Recent Impressions COMPUTERIZED TOMOGRAPHY - CT ANG TAMIMENT W/POST PROC 02/07 1940 Report Impression - Status: SIGNED Entered: 02/06/20192001 IMPRESSION: Emboli are identified in segmental and subsegmental pulmonary arteries in the lingula and left lower lobe. There are findings felt to be due to small emboli in the right lung. Impression By: SHAHANA PENA M.D. Review of Systems Constitutional Denies: Fever, Fatigue, Chills. EENT Denies: Vision Change, Vision Problems, Sore Throat. Cardiovascular Reports: Chest Pain, Dyspnea on Exertion. Denies: Palpitations, Syncope, Leg Swelling. Pulmonary Reports: Pleuritic Chest Pain, Dyspnea. Gastrointestinal Denies: Abdominal Pain, Nausea, Vomiting. Genitourinary Denies: Dysuria, Hematuria. Musculoskeletal Denies: Joint Pain, Joint Swelling. Skin Denies: Extremity Pain, Calf Pain, Leg Pain. Lymphatic Denies: Ankle Swelling, Enlarged Lymph Nodes. Endocrine Denies: Cold Intolerance, Heat Intolerance. Neuro Denies: Headache, Syncope, Dizziness. Psychiatric Denies: Depression, Anxiety. Physical Exam Vital Signs Vital Signs (Last) Result Date Time Pulse Ox 96 02/07 2040 Blood pressure 164/91, pulse 170, respiration 18, O2 sat 100% on room air, temperature 97.9 Appearance - PE Appears well, Awake, Alert Neck - PE Normal inspection, No JVD, Supple HEENT - PE Head atraumatic, Eyes normal inspection, PERRLA Respiratory - PE Lungs sound clear, Respirations non-labored, Symmetrical expansion Cardiovascular - PE Rate WNL, Rhythm regular Neurological - PE Alert, Oriented x 3 Abdomen - PE Bowel sounds present, Abdomen soft, Non-tender Extremity - PE Normal appearance, Full ROM Skin - PE Color normal, Skin warm, dry Conclusion / Plan Conclusion 1. Pulmonary embolism Plan acute pulmonary embolism seen in the left and right lower lobes. Patient is a candidate for Xarelto therapy as she is hemodynamically stable and without any right heart strain on CT scan of the chest. Would recommend Xarelto 15 mg twice a day for 3 weeks and then transition to 20 mg daily. Started on heparin in the emergency room. Will also add analgesia for left shoulder and arm pain. She is not requiring oxygen and is otherwise stable. MD Deric Disclaimer This dictation was created using voice recognition software. Phonetic and/or minor grammatical errors may exist. eSign Date and Time Sia Ashton MD Verified/Reviewed by 02/06/[id number] [facility] TROPONIN I POCon 02-06-2019 Troponin I.cardiac [Mass/Vol] 0.00 ng/mL Normal 0.0-0.06 [facility] Comment on above: Result Comment: 0.0 - 0.06 NG/ML - NON-DIAGNOSTIC (REFERENCE RANGE) 0.07 - 0.59 NG/ML - INDETERMINATE Greater than or equal to 0.6 NG/ML - INDICATIVE OF MYOCARDIAL DAMAGE VLVDon 02-06-2019 VENOUS DUPLEX REPORT Normal [facility] VLVD VASCULAR MEDSTREAMIN G REPORT Patient: HAMLET TEIXEIRA Account [id number] Ordering Phy: MR: [id number] Reason for Visit: PULMONARY EMBOLISM Date of Service 02/06/19 Reading Physician: Rupesh Sharp MD Right: CFV evaluated for comparison Left: Duplex ultrasound evaluation of the left lower extremity from the level of the calf to the level of the common femoral vein shows compressible and compliant vessels throughout the deep and superficial venous system. Color and spectral Doppler waveform analysis of the deep and superficial venous system demonstrates spontaneous, phasic, and augmented flow with no evidence of reflux in the saphenofemoral junction. These findings are consistent with the absence of deep vein thrombosis (DVT) or superficial vein thrombosis. Conclusions: No evidence of deep vein thrombosis (DVT) or superficial vein thrombosis in the left lower extremity. CC: Sia Ashton MD Abbreviated Final Report. Full Report is available via link to [employer] in [employer] under [employer] [facility] Image Viewer. * [facility] PATIENT NAME: HAMLET TEIXEIRA [facility] [address] Pham MEDICAL REC #: [id number] [place] [address] ADMIT DATE: 02/06/19 DISCHARGE DATE: VENOUS DUPLEX REPORT ATTENDING PHY: Sia Ashton MD Electronically Signed by: Rupesh Sharp MD Esign Date: 02/07/[address] [facility] CBC W/DIFFon 10-11-2018 BASO ABS 0.10 K/CU MM Normal 0-0.2 [facility] Comment on above: Performed By: #### L 200.74775 #### [facility] [address] [place] [address] Basophils/100 WBC (Bld) 0.8 % Normal 0-2 [facility] Comment on above: Performed By: #### L 200.59113 #### [facility] [address] [place] [address] EOS ABS 0.10 K/CU MM Normal 0-0.5 [facility] Comment on above: Performed By: #### L 200.38900 #### [facility] [address] [place] [address] Eosinophils/100 WBC (Bld) 1.3 % Normal 0-5 [facility] Comment on above: Performed By: #### L 200.97224 #### [facility] [address] [place] [address] Erythrocyte distribution width (RBC) [Ratio] 12.0 % Normal 11-14.5 [facility] Comment on above: Performed By: #### L 200.19946 #### [facility] [address] [place] [address]# [phone] Hematocrit (Bld) [Volume fraction] 37.9 % Normal 35.0-47.0 [facility] Comment on above: Performed By: #### L 200.47352 #### [facility] [address] [place] [address] Hemoglobin (Bld) [Mass/Vol] 12.5 g/dL Normal 11.5-15.5 [facility] Comment on above: Performed By: #### L 200.55156 #### [facility] [address] [place] [address] IMMATR GRAN ABS 0.00 K/CU MM Normal Less than 2 [facility] Comment on above: Performed By: #### L 200.26386 #### [facility] [address] [place] [address] IMMATURE GRAN % 0.4 % Normal Less than 2 [facility] Comment on above: Performed By: #### L 200.12796 #### [facility] [address] [place] [address] Lymphocytes (Bld) [#/Vol] 3.20 K/CU MM Normal 0.9-4.4 [facility] Comment on above: Performed By: #### L 200.44419 #### [facility] [address] [place] [address] Lymphocytes/100 WBC (Bld) 31.3 % Normal 20-40 [facility] Comment on above: Performed By: #### L 200.43452 #### [facility] [address] [place] [address] MCHC (RBC) [Mass/Vol] 33.0 g/dL Normal 32.0-36.0 [facility] Comment on above: Performed By: #### L 200.86750 #### [facility] [address] [place] [address] MCV (RBC) [Entitic vol] 90.0 fL Normal 80.0-99.0 [facility] Comment on above: Performed By: #### L 200.40814 #### [facility] [address] [place] [address] MONO ABS 0.50 K/CU MM Normal 0.1-1.1 [facility] Comment on above: Performed By: #### L 200.49076 #### [facility] [address] [place] [address] Monocytes/100 WBC (Bld) 4.7 % Normal 2-10 [facility] Comment on above: Performed By: #### L 200.82652 #### [facility] [address] [place] [address] NEUTROPHIL ABS 6.30 K/CU MM Normal 2.0-8.3 [facility] Comment on above: Performed By: #### L 200.91783 #### [facility] [address] [place] [address] Neutrophils/100 WBC (Bld) 61.5 % Normal 45-75 [facility] Comment on above: Performed By: #### L 200.54282 #### [facility] [address] [place] [address] Nucleated RBC/100 WBC (Bld) [Ratio] 0.0 % Normal Less than 1 [facility] Comment on above: Performed By: #### L 200.73479 #### [facility] [address] [place] [address] Platelet mean volume (Bld) [Entitic vol] 9.2 fL Low 9.4-12.4 [facility] Comment on above: Performed By: #### L 200.21196 #### [facility] [address] [place] [address] Platelets (Bld) [#/Vol] 321 K/CU MM Normal 150-450 [facility] Comment on above: Performed By: #### L 200.80930 #### [facility] [address] [place] [address] RBC (Bld) [#/Vol] 4.21 M/CU MM Normal 3.90-5.30 [facility] Comment on above: Performed By: #### L 200.53632 #### [facility] [address] [place] [address] WBC (Bld) [#/Vol] 10.3 K/CUMM Normal 4.5-11.0 [facility] Comment on above: Performed By: #### L 200.39789 #### [facility] [address] [place], [place] [id number] CMPon 10-11-2018 Albumin [Mass/Vol] 3.2 g/dL Normal 3.2-5.0 [facility] Comment on above: Performed By: #### L 500.33383, L500.32574, L500.80768, L500.48857 #### [facility] [place] [address] Albumin/Globulin [Mass ratio] 0.9 {ratio} Normal 0.8-2.0 [facility] Comment on above: Performed By: #### L 500.77508, L500.61356, L500.49588, L500.36228 #### [facility] [address] [place] [address] ALK PHOS 54 U/L Normal 45-117 [facility] Comment on above: Performed By: #### L 500.07218, L500.91323, L500.26880, L500.34171 #### [facility] [address] [place] [address] ALT [Catalytic activity/Vol] 15 U/L Normal 13-61 [facility] Comment on above: Result Comment: RESU LTS MAY BE FALSELY DEPRESSED AFTER THE ADMINISTRATION OF SULFASALAZINE AND/OR SULFAPYRIDINE. Performed By: #### L 500.33515, L500.82654, L500.67457, L500.04037 #### [facility] [address] [place] [address] Anion gap [Moles/Vol] 8 mmol/L Normal 5-16 [facility] Comment on above: Performed By: #### L 500.91926, L500.84346, L500.91969, L500.79157 #### [facility] [address] [place] [address] BILI TOTAL 0.3 MG/DL Normal 0.2-1.0 [facility] Comment on above: Performed By: #### L 500.86288, L500.32422, L500.09265, L500.26136 #### [facility] [address] [place] [address] Calcium [Mass/Vol] 8.3 mg/dL Low 8.5-10.1 [facility] Comment on above: Performed By: #### L 500.89030, L500.66562, L500.89108, L500.42360 #### [facility] [address] [place] [address] Chloride [Moles/Vol] 113 mmol/L High 98-107 [facility] Comment on above: Performed By: #### L 500.83155, L500.22469, L500.17359, L500.24305 #### [facility] [place] [address] CO2 [Moles/Vol] 24 mmol/L Normal 21-32 [facility] Comment on above: Performed By: #### L 500.55501, L500.40376, L500.61423, L500.85892 #### [facility] [address] [place] [address] Creatinine [Mass/Vol] 0.909 mg/dL Normal 0.510- 0.[address] [facility] Comment on above: Result Comment: Kathy ents receiving either N-Acetylcysteine (NAC) or Metamizole prior to venipuncture, may have falsely depressed results. Performed By: #### L 500.55930, L500.57751, L500.89973, L500.59000 #### [facility] [place] [address] Globulin (S) [Mass/Vol] 3.6 g/dL Normal 2.2-4.2 [facility] Comment on above: Performed By: #### L 500.13182, L500.69686, L500.45657, L500.40282 #### [facility] [place] [address] Glucose [Mass/Vol] 88 mg/dL Normal 70-100 [facility] Comment on above: Result Comment: 70-1 00- Normal Fasting; 100-125 Impaired Fasting; greater than 126 on more than one result- Diabetes. ADA guidelines. Results may be falsely elevated after the administration of Sulfapyridine. Results may be falsely depressed after the administration of Sulfasalazine. Performed By: #### L 500.89135, L500.54704, L500.40487, L500.58983 #### [facility] [address] [place] [address] Potassium [Moles/Vol] 4.6 mmol/L Normal 3.5-5.1 [facility] Comment on above: Performed By: #### L 500.81123, L500.49186, L500.89827, L500.02118 #### [facility] [address] [place] [address] Protein [Mass/Vol] 6.8 g/dL Normal 6.0-8.5 [facility] Comment on above: Performed By: #### L 500.93409, L500.96376, L500.58163, L500.31959 #### [facility] [address] [place] [address] SGOT (AST) 8 U/L Normal 8-34 [facility] Comment on above: Result Comment: RESU LTS MAY BE FALSELY DEPRESSED AFTER THE ADMINISTRATION OF SULFASALAZINE AND/OR SULFAPYRIDINE. Performed By: #### L 500.38482, L500.08575, L500.03742, L500.44619 #### [facility] [address] [place] [address] Sodium [Moles/Vol] 145 mmol/L Normal 136-145 [facility] Comment on above: Performed By: #### L 500.89206, L500.59158, L500.95687, L500.11115 #### [facility] [address] [place] [address] Urea nitrogen [Mass/Vol] 9 mg/dL Normal 7-26 [facility] Comment on above: Performed By: #### L 500.93742, L500.16940, L500.67275, L500.63302 #### [facility] [address] [place] [address] Urea nitrogen/Creatinine [Mass ratio] 10 mg/mg Low 15-24 [facility] Comment on above: Performed By: #### L 500.11532, L500.50804, L500.21017, L500.65003 #### [facility] [address] [place] [address] GFR ESTon 10-11-2018 IF AMER Greater than 60 Normal [facility] Comment on above: Performed By: #### L 500.07193, L500.36861, L500.17275, L500.71844 #### [facility] [address] [place] [address] IF non-AFR AMER Greater than 60 Normal [facility] Comment on above: Performed By: #### L 500.10627, L500.56110, L500.82900, L500.65931 #### [facility] [address] [place] [address] LIPIDon 10-11-2018 Cholesterol [Mass/Vol] 180 mg/dL Normal 0-199 [facility] Comment on above: Performed By: #### L 500.51563, L500.42113, L500.16284, L500.51987 #### [facility] [address] [place], [place] [id number] Cholesterol in HDL [Mass/Vol] 51 mg/dL Normal [place] 40 [facility] Comment on above: Result Comment: Kathy ents receiving Metamizole prior to venipuncture, may have falsely depressed results. Performed By: #### L 500.67597, L500.06545, L500.37815, L500.61870 #### [facility] [address] [place] [address] Cholesterol in LDL [Mass/Vol] 90 mg/dL Normal 0-129 [facility] Comment on above: Result Comment: ___C HOLESTEROL/HDL RATIO RISK___ CHD RISK = Total CHOL LDL HDL (CHOL/HDL) Recommended <200 <130 >35 <3.4 Borderline 200-239 130-159 3.4-4.99 High >240 >160 >5.0 Performed By: #### L 500.70369, L500.80946, L500.76505, L500.67432 #### [facility] [address] [place] [address] Triglyceride [Mass/Vol] 195 mg/dL High 30-149 [facility] Comment on above: Result Comment: Kathy ents receiving either N-Acetylcysteine (NAC) or Metamizole prior to venipuncture, may have falsely depressed results. Performed By: #### L 500.14204, L500.13041, L500.18535, L500.74727 #### [facility] [address] [place] [address] TSHon 10-11-2018 TSH Qn 1.660 UIU/ML Normal 0.358-3.[address] [facility] Comment on above: Result Comment: 3rd generation ultra sensitive TSH Performed By: #### L 500.78297, L500.57930, L500.77562, L500.95036 #### [facility] [address] [place] [address] HCG,Totalon 07-17-2018 HCG Qn 8938.0 m[IU]/mL Normal [facility] Comment on above: Result Comment: Male < or = 1Non- female 1- 3Gestational Age:0.2-1 Week 5 - 501-2 Weeks 50 - 5002-3 Weeks 100 - 09979-8 Weeks 500 - 498275-6 weeks 1000 - 663620-2 weeks 63198 - 100,0006-8 weeks 22084 - 200,0002-3 months 54277 - 100,000 Performed By: #### H ####[place] [address] Patient Summary Documentson 10-29-2017 Patient Summary Documents Normal [facility] ([place]) Vital Signs Date Time Vital Sign Value Performing Clinician Facility 04-17-2025 09:28040 Body height 160.[address] Ortega Medrano MD Work Phone: [facility] 04-17-2025 09:0400 Body mass index (BMI) [Ratio] 40.2 kg/m2 Dr. Ortega Medrano MD Work Phone: [facility] 04-17-2025 09:040 Body temperature 98.5 [degF] Dr. Ortega Medrano MD Work Phone: [facility] 04-17-2025 09:28040 Body weight 103.[address] Ortega Medrano MD Work Phone: [facility] 04-17-2025 09:28-0400 Diastolic blood pressure 87 mm[Hg] Dr. Ortega Medrano MD Work Phone: [facility] 04-17-2025 09:28-0400 Heart rate 63 /min Dr. Ortega Medrano MD Work Phone: [facility] 04-17-2025 09:28-0400 Respiratory rate 18 /min Dr. Ortega Medrano MD Work Phone: [facility] 04-17-2025 09:28-0400 SaO2% (BldA) [Mass fraction] 98 % Dr. Ortega Medrano MD Work Phone: [facility] 04-17-2025 09:28-0400 Systolic blood pressure 136 mm[Hg] Dr. Ortega Medrano MD Work Phone: [facility] 03-09-2025 14:23-0400 Body height 160 cm Baltazar Courtney MD Work Phone: [facility] 03-09-2025 14:23-0400 Body mass index (BMI) [Ratio] 40.57 kg/m2 Baltazar Courtney MD Work Phone: [facility] 03-09-2025 14:23-0400 Body temperature 97.11 [degF] Baltazar Courtney MD Work Phone: [facility] 03-09-2025 14:23-0400 Body weight 103.87 kg Baltazar Courtney MD Work Phone: [facility] 03-09-2025 14:23-0400 Diastolic blood pressure 82 mm[Hg] Baltazar Courtney MD Work Phone: [facility] Comment on above: Dr. Courtney notified of blood pressure 03-09-2025 14:23-0400 Heart rate 96 /min Baltazar Courtney MD Work Phone: [facility] 03-09-2025 14:23-0400 Respiratory rate 14 /min Baltazar Courtney MD Work Phone: [facility] 03-09-2025 14:23-0400 SaO2% (BldA) [Mass fraction] 98 % Baltazar Courtney MD Work Phone: [facility] 03-09-2025 14:23-0400 Systolic blood pressure 148 mm[Hg] Baltazar Courtney MD Work Phone: [facility] Comment on above: Dr. Courtney notified of blood pressure 07-30-2024 15:18-0500 Body mass index (BMI) [Ratio] 38.51 kg/m2 Yordy Andersen MD Work Phone: [facility] 07-30-2024 15:18-0500 Body temperature 98.6 [degF] Yordy Andersen MD Work Phone: [facility] 07-30-2024 15:18-0500 Body weight 98.6 kg Yordy Andersen MD Work Phone: [facility] 07-30-2024 15:18-0500 Diastolic blood pressure 80 mm[Hg] Yordy Andersen MD Work Phone: [facility] 07-30-2024 15:18-0500 Heart rate 80 /min Yordy Andersen MD Work Phone: [facility] 07-30-2024 15:18-0500 Respiratory rate 21 /min Yordy Andersen MD Work Phone: [facility] 07-30-2024 15:18-0500 SaO2% (BldA) [Mass fraction] 98 % Yordy Andersen MD Work Phone: [facility] 07-30-2024 15:18-0500 Systolic blood pressure 122 mm[Hg] Yordy Andersen MD Work Phone: [facility] 07-29-2024 15:01-0500 Body height 160 cm Gómez Younger MD Work Phone: [facility] 07-29-2024 15:01-0500 Body mass index (BMI) [Ratio] 37.98 kg/m2 Gómez Younger MD Work Phone: [facility] 07-29-2024 15:01-0500 Body temperature 98.01 [degF] Gómez Younger MD Work Phone: [facility] 07-29-2024 15:01-0500 Body weight 97.25 kg Gómez Younger MD Work Phone: [facility] 07-29-2024 15:01-0500 Diastolic blood pressure 78 mm[Hg] Gómez Younger MD Work Phone: [facility] 07-29-2024 15:01-0500 Systolic blood pressure 118 mm[Hg] Gómez Younger MD Work Phone: [facility] 07-07-2024 14:13-0500 Body height 160 cm Gómez Younger MD Work Phone: [facility] 07-07-2024 14:13-0500 Body mass index (BMI) [Ratio] 36.56 kg/m2 Gómez Younger MD Work Phone: [facility] 07-07-2024 14:13-0500 Body temperature 98.71 [degF] Gómez Younger MD Work Phone: [facility] 07-07-2024 14:13-0500 Body weight 93.62 kg Gómez Younger MD Work Phone: [facility] 07-07-2024 14:13-0500 Diastolic blood pressure 82 mm[Hg] Gómez Younger MD Work Phone: [facility] 07-07-2024 14:13-0500 Systolic blood pressure 118 mm[Hg] Gómez Younger MD Work Phone: [facility] 07-25-2023 09:03-0500 Body height 160.[address] Sommer Flynn Work Phone: [facility] 07-25-2023 08:55-0500 Body mass index (BMI) [Ratio] 39.2 kg/m2 Dr. Sommer Flynn Work Phone: [facility] 07-25-2023 08:55-0500 Body weight 100.[address] Sommer Flynn Work Phone: [facility] 07-25-2023 08:55-0500 Diastolic blood pressure 82 mm[Hg] Dr. Sommer Flynn Work Phone: [facility] 07-25-2023 08:55-0500 Systolic blood pressure 128 mm[Hg] Dr. Sommer Flynn Work Phone: [facility] Encounters Encounter Date Encounter Type Care Provider Facility Start: 04-17-2025 End: 04-17-[address] Gómez Casiano MD -[facility] Work Phone: Start: 04-17-2025 End: 04-17-[address] Ortega Medrano MD Work Phone: -[facility] Start: 03-16-2025 End: 03-16-2025 Patient encounter procedure Baltazar Courtney MD Work Phone: General Surgery Comment on above: Multinodular goiter (Primary Dx) Start: 03-16-2025 End: 03-16-2025 ambulatory BALTAZAR COURTNEY Facility:[facility] Start: 03-09-2025 End: 03-09-2025 Patient encounter procedure Baltazar Courtney MD Work Phone: General Surgery Comment on above: Multinodular goiter (Primary Dx) Start: 03-09-2025 End: 03-09-2025 ambulatory BALTAZAR COURTNEY Facility:[facility] Start: 03-04-2025 End: 03-04-2025 Chart abstracting Baltazar Courtney MD Work Phone: General Surgery Start: 02-12-2025 End: 02-12-[address] Sommer Flynn MD Work Phone: [facility] Work Phone: Start: 02-12-2025 End: 02-12-[address] Ortega Medrano MD -Ultrasound [facility] Work Phone: Start: 02-12-2025 End: 02-12-2025 ambulatory Ortega Medrano Facility:[facility] Start: 02-05-2025 End: 02-05-[address] Sommer Flynn MD Work Phone: [facility] Work Phone: Start: 02-05-2025 End: 02-05-[address] Ortega Medrano MD -Laboratory [facility] Start: 02-05-2025 End: 02-05-2025 ambulatory Ortega Medrano Facility:[facility] Start: 01-15-2025 Encounter for genera l adult medical examination without abnormal findings Sommer Flynn [facility] Start: 01-15-2025 ambulatory Sommer Flynn Facilit y:[facility] Start: 11-15-2024 Registered [employer] [facility] RIS K ASSESSMENT -Laboratory Work Phone: Start: 11-15-2024 ambulatory Health Risk Assessment Facility:[facility] Start: 10-25-2024 ambulatory Health Risk Assessment Facility:[facility] Start: 10-25-2024 Registered [employer] [facility] RIS K ASSESSMENT -Employee [facility] Start: 10-23-2024 Registered [employer] [facility] RIS K ASSESSMENT -Employee [facility] Start: 10-23-2024 ambulatory Health Risk Assessment Facility:[facility] Start: 07-30-2024 End: 07-30-2024 ambulatory SOMMER FLYNN Facility:[facility] Start: 07-30-2024 End: 07-30-2024 Office outpatient new 30 minutes Yordy Andersen MD Work Phone: [facility] Comment on above: Acute non-recurrent sinusitis, unspecified location (Primary Dx) Start: 07-29-2024 End: 07-29-2024 ambulatory GÓMEZ YOUNGER [facility] Start: 07-29-2024 End: 07-29-2024 Postop follow up visit related to original px Gómez Younger MD Work Phone: [facility] [place] Comment on above: Perianal abscess (Pr imary Dx) Start: 07-28-2024 Encounter for gynecological examination (general) (routine) without abnormal findings Lali Gallagher [facility] Start: 07-28-2024 End: 07-28-2024 ambulatory Sommer Flynn Facility:[facility] Start: 07-28-2024 End: 07-28-2024 ambulatory Lali Gallagher Facility:[facility] Start: 07-07-2024 End: 07-07-2024 Patient encounter procedure Gómez Younger MD Work Phone: [facility] Colorectal Surgery [facility] Comment on above: Perianal abscess (Pr imary Dx) Start: 07-07-2024 End: 07-07-2024 ambulatory GÓMEZ YOUNGER [facility] Start: 09-19-2023 End: 09-19-[address] Sommer Flynn Work Phone: [facility] Work Phone: Start: 09-19-2023 End: 09-19-[address] Sommer Flynn Work Phone: [facility] [place] Work Phone: Start: 07-25-2023 End: 07-25-[address] Sommer Flynn Work Phone: [facility] Work Phone: Start: 07-17-2018 End: 07-18-2018 Patient encounter procedure KAREN Colon [facility] Start: 10-29-2017 End: 10-29-2017 Emergency department patient visit SOMMER FLYNN Facility:A Procedures Date Procedure Procedure Detail Performing Clinician Start: 03-16-2025 US THYROID BIOPSY RIGHT (POC) SURG USE ONLY Baltazar Courtney MD Work Phone: Start: 02-12-2025 US scan of thyroid Dr. Sommer Flynn MD Work Phone: Start: 02-05-[address] Sommer lFynn MD Work Phone: Comment on above: According to the National Academy of Cli nical Biochemistry,the reference interval for Thyroglobulin (TG) should berelated to euthyroid patients and not for patients whounderwent thyroidectomy. TG reference intervals for thesepatients depend on the residual mass of the thyroid tissueleft after surgery. Establishing a post-operative baselineis recommended. The assay limit of quantitation is 0.1ng/mLThyroglobulin measured by [facility] [employer] Start: 02-05-[address] Isaiah Flynn MD Work Phone: Comment on above: Thyroglobulin Antibody measured by [employer] CoulterMethodologyIt should be noted that the presence of thyroglobulinantibodies may not be pathogenic nor diagnostic, especiallyat very low levels. The assay handbag frames inspector has found thatfour percent of individuals without evidence of thyroiddisease or autoimmunity will have positive TgAb levels upto 4 IU/mL. Start: 02-05-2025 Vitamin D, 25-hydroxy measurement Dr. Me mary Flynn MD Work Phone: Comment on above: Vitamin D StatusDeficiency: <20 ng/mL (5 0nmol/L)Insufficiency: 20-30 ng/mL (50-75 nmol/L)Sufficiency: 30-100 ng/mL (75-250 nmol/L)Toxicity: >100 ng/mL (>250 nmol/L) Start: 11-15-[address] Ashley Flynn MD Work Phone: Start: 10-25-2024 In-vitro immunologic test Dr. Sommer Flynn MD Work Phone: Comment on above: QuantiFERON-TB Gold Plus is a qualitativ e indirect test forM tuberculosis infection (including disease) and isintended for use in conjunction with risk assessment,radiography, and other medical and diagnostic evaluations.The QuantiFERON-TB Gold Plus result is determined bysubtracting the Nil value from either TB antigen (Ag)value. The Mitogen tube serves as a control for the test. No response to M tub erculosis antigens detected.Infection with M tuberculosis is unlikely, but high riskindividuals should be considered for additional testing(ATS/IDSA/CDC Clinical Practice Guidelines, 2017). Thereference range is an Antigen minus Nil result of <0.35IU/mL.The specimen received for QuantiFERON testing was incubatedby the ordering institution. Specific procedures outlinedin our Directory of Services and in the package insert forthe QuantiFERON Gold (In Tube) test must be followed toenable for proper stimulation of cells for the productionof interferon gamma. Chemiluminescence immunoassaymethodologyPerformed at: - [facility] [id number] Director: Rodrigo Edmondson PhD, Phone: [phone] Start: 09-19-[address] Sommer Flynn Work Phone: Start: 02-06-2019 Ecg routine ecg w/least 12 lds i&r only Plan of Treatment Date Care Activity Detail Author Start: 2061 RSV Immunization for Adults (1 - 1-dose 75+ series) RSV Immunization for Adults (1 - 1-dose 75+ series) [facility] Start: 2036 Zoster Vaccines (1 o f 2) Zoster Vaccines (1 of 2) [facility] Start: 03-24-2030 DTaP/Tdap/Td Vaccine s (5 - Td or Tdap) DTaP/Tdap/Td Vaccines (5 - Td or Tdap) [facility] Start: 03-24-2030 Urine microalbumin profile [facility] Start: 04-27-2025 Influenza vaccination Influenza Vacc ine (#1) [facility] Start: 03-30-2025 End: 03-30-2025 Patient encounter procedure 03/30/2025 2:45 PM EDT Office Visit General Surgery [address] [place] [id number] Baltazar Courtney MD [address] [place] [id number] 2 wk f/u-FNA results General Surgery Comment on above: 2 wk f/u-FNA results Start: 03-16-2025 End: 03-16-2025 Patient encounter procedure 03/16/2025 1:30 PM EDT Office Visit General Surgery [address] [place] [id number] Baltazar Courtney MD [address] [place] [id number] PROCEDURE: FNA Right thyroid x 2. Consent signed. [facility] General Surgery Comment on above: PROCEDURE: FNA Right thyroid x 2. Consent signed. [facility] Start: 03-09-2025 End: 03-09-2025 Patient encounter procedure 03/09/2025 2:45 PM EDT Office Visit General Surgery [address] [place] [address] Baltazar Courtney MD [address] [facility] [place], [place] [id number] CONSULT: THYROID NODULE / REFERRAL SCANNED. Images available. [facility] General Surgery Comment on above: CONSULT: THYROID NOD ULE / REFERRAL SCANNED. Images available. [facility] Start: 07-29-2024 End: 07-29-2024 Patient encounter procedure 07/29/2024 3:00 PM EST Office Visit [facility] [place] [address] [facility] [address] [place] [address] [phone] Gómze Younger MD [address] [facility] [address] [place], [place] [id number] [facility] [place] Start: 04-27-2024 COVID-19 Vaccine ( season) COVID-19 Vaccine ( season) [facility] Start: 04-23-2017 Screening for malign ant neoplasm of cervix Cervical Cancer Screening [facility] Start: 2016 Screening for malign ant neoplasm of cervix [facility] Start: 2007 Screening for malign ant neoplasm of cervix Pap Smear [facility] Start: 2004 Anxiety Screening Anxiety Screening [facility] Start: 2004 Depression Screening Depression Scre ening [facility] Start: 2004 Hepatitis C screening Hepatitis C Sc reening [facility] Start: 1999 Varicella vaccination Varicell a Vaccines (1 of 2 - 13+ 2-dose series) [facility] Start: 1998 Depression Monitoring Depression Mon itoring [facility] Start: 1987 MMR Vaccines (1 of 1 - Standard series) MMR Vaccines (1 of 1 - Standard series) [facility] Start: 1986 HIV screening HIV Screening [facility] Start: 1986 Lipid panel Lipid Panel [facility] ATTENDANT [facility] Work Phone: Comment on above: Ordered: 03/16/2025 Immunizations Immunization Date Immunization Notes Care Provider Enriqueta hi 06-17-2024 Influenza, injectabl e, Madin Emi Canine Kidney, preservative free, quadrivalent Dr. Sommer Flynn MD Work Phone: [facility] 06-17-2024 influenza virus vaccine, unspecified formulation Baltazar Courtney MD Work Phone: [facility] 07-12-2021 influenza, injectabl e, quadrivalent, preservative free Dr. Sommer Flynn Work Phone: [facility] 10-12-2020 Covid (Moderna) Dr. Sommer Flynn Work Phone: [facility] 09-14-2020 Covid (Moderna) Dr. Sommer Flynn Work Phone: [facility] 05-25-2020 influenza, injectabl e, quadrivalent, preservative free Dr. Sommer Flynn Work Phone: [facility] 03-24-2020 tetanus toxoid, redu janeen diphtheria toxoid, and acellular pertussis vaccine, adsorbed Dr. Sommer Flynn Work Phone: [facility] 07-09-2019 influenza, injectabl e, quadrivalent, preservative free Dr. Sommer Flynn Work Phone: [facility] 10-22-2014 tetanus toxoid, redu janeen diphtheria toxoid, and acellular pertussis vaccine, adsorbed Yordy Andersen MD Work Phone: [facility] 05-28-2014 hepatitis B vaccine, adult dosage Yordy Andersen MD Work Phone: [facility] 05-28-2014 influenza, injectabl e, quadrivalent, preservative free Yordy Andersen MD Work Phone: [facility] 11-27-2013 hepatitis B vaccine, adult dosage Yordy Andersen MD Work Phone: [facility] 10-27-2013 hepatitis B vaccine, adult dosage Yordy Andersen MD Work Phone: [facility] Work Phone: 10-27-2013 tetanus toxoid, redu janeen diphtheria toxoid, and acellular pertussis vaccine, adsorbed Yordy Andersen MD Work Phone: [facility] Payers Date Payer Category Payer Private Health Insurance [facility] [id number] 2024 Unknown [id number] 2024 Self-pay [id number] 2024 Commercial Managed C [facility] [id number] 2024 Unknown [id number] 2024 Unknown [id number] 2015 Private Health Insurance 11 Private Health Insurance [id number] Unknown [facility] DO NOT USE [id number] Unknown [id number] 62 Unknown [id number] 62 Unknown [id number] 62 Unknown [id number] 62 Unknown [id number] 62 Unknown [id number] 62 Unknown [id number] 62 Unknown [id number] 62 Unknown [id number] 62 Social History Date Type Detail Facility Start: 07-25-2023 Tobacco smoking stat us OKIS Unknown if ever smoked [facility] Start: 03-18-2019 None [facility] Start: 03-18-2019 Spouse/ Signif icant Other [facility] Start: 1985 Sex Assigned At Female W [facility] Start: 07-25-2023 End: 07-07-2024 Tobacco smoking status OKIS Never smoked tobacco [facility] Start: 04-23-2014 End: 07-07-2024 Tobacco use and exposure Smokeless tobacco non-user [facility] Start: 07-07-2024 End: 03-09-2025 Alcoholic beverage intake Current drinker of alcohol (finding) [facility] Start: 07-07-2024 End: 03-09-2025 History of Social function [facility] Start: 07-07-2024 End: 03-09-2025 Tobacco use panel [facility] Start: 1985 Sex assigned at Not on file [facility] Start: 04-28-2022 Sex Female (finding) [facility] Start: 07-30-2024 End: 03-04-2025 Alcoholic beverage intake Current non-drinker of alcohol (finding) [facility] National Score (1-100), lower number is lower risk 71 [facility] Start: 03-09-2025 Alcohol Comment Socially- meg mated once monthly [facility] Functional Status Date Assessment Result Facility 12-17-2014 Are you deaf, or do you have serious difficulty hearing No 12/17/2014 9:56 AM Leighann Dunn Ma No [facility] 12-17-2014 Are you blind, or do you have serious difficulty seeing, even when wearing glasses No 12/17/2014 9:56 AM Leighann Dunn Ma No [facility] 12-17-2014 Do you have serious difficulty walking or climbing stairs No 12/17/2014 9:56 AM Leighann Dunn Ma No [facility] 12-17-2014 Do you have difficul ty dressing or bathing No 12/17/2014 9:56 AM Leighann Dunn Ma No [facility] 12-17-2014 Because of a physica l, mental, or emotional condition, do you have difficulty doing errands alone such as visiting a physician's office or shopping No 12/17/2014 9:56 AM Leighann Dunn Ma [facility] Mental Status Date Assessment Result Facility 12-17-2014 Because of a physica l, mental, or emotional condition, do you have serious difficulty concentrating, remembering, or making decisions No 12/17/2014 9:56 AM Leighann Dunn Ma [facility] Clinical Notes 07-07-2024 to 03-16-2025 Addendum Note - Amirah Nice RN - 03/16/2025 2:03 PM EDTAddendum Note - Amirah Nice RN - 03/16/2025 2:03 PM EDTAddendum Note - Amirah Nice RN - 03/16/2025 2:01 PM EDTPatient Instructions Note Date & Type Note Facility 03-16-2025 Note Addended by: AMIRAH NICE on: 03/16/2025 02:03 PM Modules accepted: Orders [facility] 03-16-2025 Miscellaneous Notes Addended by: AMIRAH NICE on: 03/16/2025 02:03 PM Modules accepted: Orders Addended by: AMIRAH NICE on: 03/16/2025 02:01 PM Modules accepted: Orders documented in this encounter [facility] 03-16-2025 Note Addended by: AMIRAH NICE on: 03/16/2025 02:01 PM Modules accepted: Orders [facility] 03-16-2025 Note HNO ID: [id number] Author: BALTAZAR COURTNEY MD Service: ? Author Type: Physician Type: Progress Notes Filed: 03/17/2025 09:48 Note Text: Preoperative diagnosis: Multinodular goiter Postoperative diagnosis: The same Procedure: Ultrasound-guided fine-needle aspiration of 2 dominant right sided thyroid nodules Surgeon: Sudhir Procedure: Ultrasound of the right thyroid gland in the lower pole revealed the nodule in question. I prepped the skin with alcohol. I injected 1% lidocaine plain. Under ultrasound guidance I took 3 passes with a 22-gauge needle and plated these on glass slides and sent to an Afirma test. The mid-upper pole was then identified. Through the same area that I injected local I once again did 3 passes under ultrasound guidance through the mid-upper pole nodule. I plated these on glass slides and sent an Afirma test. Sterile dressings were applied and the patient tolerated the procedure well. [facility] 03-16-2025 History of Presen t illness Narrative Preoperative diagnosis: Multinodular goiter Postoperative diagnosis: The same Procedure: Ultrasound-guided fine-needle aspiration of 2 dominant right sided thyroid nodules Surgeon: Sudhir Procedure: Ultrasound of the right thyroid gland in the lower pole revealed the nodule in question. I prepped the skin with alcohol. I injected 1% lidocaine plain. Under ultrasound guidance I took 3 passes with a 22-gauge needle and plated these on glass slides and sent to an Afirma test. The upper pole was then identified. Through the same area that I injected local I once again did 3 passes under ultrasound guidance through the superior pole nodule. I plated these on glass slides and sent an Afirma test. Sterile dressings were applied and the patient tolerated the procedure well. documented in this encounter [facility] 03-16-2025 Instructions Amirah Nice RN - 03/16/2025 1:44 PM EDT The following instructions are important for you related to your office visit today with the [facility] General Surgeons. Instructions After THYROID FINE NEEDLE ASPIRATION Please do not take aspirin or other blood thinners for the next few days. If you have bleeding from the needle site, hold pressure with a clean gauze. If the bleeding continues, contact our office immediately. I recommend taking Advil or Tylenol for the discomfort. An ice pack may improve your discomfort to the area. Contact our office immediately if you have any questions or concerns @ [phone]. Please make an appointment to follow up in one week with your physician and thank you for choosing the [facility]. If you note any additional difficulties, questions, or concerns, you should contact our office immediately @ [phone] and ask to be transferred to the General Surgery department. documented in this encounter [facility] 03-16-2025 Note HNO ID: [id number] Author: AMIRAH NICE RN Service: ? Author Type: Registered Nurse Type: Procedures Filed: 03/16/2025 13:34 Note Text: UNIVERSAL PROTOCOL / SAFETY CHECKLIST Procedure to be Performed: Ultrasound Guided Fine Needle Aspiration Thyroid right times two Sign In: A Moment of CARE was completed. Appropriate PPE (Personal Protective Equipment) worn by all providers involved with the procedure. Special equipment utilized .Ultrasound Patient/Surrogate Stated/Verified: Patient name, Date of , Relevant allergies, and The intended procedure Time Out: Relevant labs, photos, and/or imaging studies have been reviewed. Intended patient and procedure match the source document(s) (e.g. consent, HANDP, associated studies [imaging, pathology]) match the intended patient and procedure. Consent obtained and matches the intended procedure. Yes. Correct side/site has been marked and visible. Medications required for this procedure are verified. Fire risk assessed and interventions discussed. Implants: are not applicable. Sign Out: Specimens are all correctly labeled and sent. All instruments, equipment, possible retained foreign bodies are accounted for. Yes. The post-procedure plan of care has been communicated to the patient or surrogate. [facility] 03-16-2025 Procedure note UNIVERSAL PROTOCOL / SAFETY CHECKLIST Procedure to be Performed: Ultrasound Guided Fine Needle Aspiration Thyroid right times two Sign In: A Moment of CARE was completed. Appropriate PPE (Personal Protective Equipment) worn by all providers involved with the procedure. Special equipment utilized .Ultrasound Patient/Surrogate Stated/Verified: Patient name, Date of , Relevant allergies, and The intended procedure Time Out: Relevant labs, photos, and/or imaging studies have been reviewed. Intended patient and procedure match the source document(s) (e.g. consent, H&P, associated studies [imaging, pathology]) match the intended patient and procedure. Consent obtained and matches the intended procedure. Yes. Correct side/site has been marked and visible. Medications required for this procedure are verified. Fire risk assessed and interventions discussed. Implants: are not applicable. Sign Out: Specimens are all correctly labeled and sent. All instruments, equipment, possible retained foreign bodies are accounted for. Yes. The post-procedure plan of care has been communicated to the patient or surrogate. [facility] 03-16-2025 Procedure note UNIVERSAL PROTOCOL / SAFETY CHECKLIST Procedure to be Performed: Ultrasound Guided Fine Needle Aspiration Thyroid right times two Sign In: A Moment of CARE was completed. Appropriate PPE (Personal Protective Equipment) worn by all providers involved with the procedure. Special equipment utilized .Ultrasound Patient/Surrogate Stated/Verified: Patient name, Date of , Relevant allergies, and The intended procedure Time Out: Relevant labs, photos, and/or imaging studies have been reviewed. Intended patient and procedure match the source document(s) (e.g. consent, H&P, associated studies [imaging, pathology]) match the intended patient and procedure. Consent obtained and matches the intended procedure. Yes. Correct side/site has been marked and visible. Medications required for this procedure are verified. Fire risk assessed and interventions discussed. Implants: are not applicable. Sign Out: Specimens are all correctly labeled and sent. All instruments, equipment, possible retained foreign bodies are accounted for. Yes. The post-procedure plan of care has been communicated to the patient or surrogate. documented in this encounter [facility] 03-13-2025 Note HNO ID: [id number] Author: BALTAZAR COURTNEY MD Service: ? Author Type: Physician Type: Progress Notes Filed: 03/13/2025 14:16 Note Text: HISTORY AND PHYSICAL Hamlet Teixeira 1985 REFERRING PHYSICIAN: Ortega Medrano MD, MD CHIEF COMPLAINT: Consult HPI: Hamlet Teixeira is a 39-year-old female presenting for evaluation of thyroid nodules. Hamlet was recently diagnosed with thyroid nodules following an ultrasound ordered by her new PCP. The ultrasound revealed a 2.2 cm nodule on the right side, classified as TR3, with recommendations for follow-up ultrasounds at 1, 3, and 5 years. Additionally, a 1.1 cm nodule on the right side was classified as TR4, with ultrasound follow-up recommended. No significant findings were reported on the left side. Hamlet has lost approximately 100 lbs, resulting in significant improvement in knee pain. The patient is being seen by me today at the request of Dr. Ortega Medrano MD, MD for my opinion and advice regarding Multinodular goiter (primary encounter diagnosis). PAST MEDICAL HISTORY Diagnosis Date Anxiety and depression History of abnormal cervical Pap smear 08/27/2006 History of maternal deep vein thrombosis (DVT) 2019 Morbid obesity (HCC) Pulmonary embolism (HCC) 2019 bilateral Thyromegaly 02/18/2025 Vitamin D deficiency PAST SURGICAL HISTORY Procedure Laterality Date REMOVAL GALLBLADDER 2018 Current Outpatient Medications Medication Sig FLUoxetine (PROZAC) 40 mg capsule Take 40 mg by mouth once daily. hydrOXYzine pamoate (VISTARIL) 25 mg capsule Take 25 mg by mouth every 8 hours as needed for anxiety. cholecalciferol (VITAMIN D-3) 50 mcg (2,000 unit) tablet Take 2,000 Units by mouth once daily. SLYND 4 mg (28) tabet Take 1 tablet by mouth once daily. FLUoxetine (PROZAC) 20 mg capsule Take 20 mg by mouth. (Patient taking differently: Take 40 mg by mouth once daily.) No current facility-administered medications for this visit. ALLERGIES: Patient has no known allergies. PERSONAL HISTORY: Social History Tobacco Use Smoking status: Never Smokeless tobacco: Never Vaping Use Vaping status: Never Used Substance Use Topics Alcohol use: Yes Comment: Socially- estimated once monthly Drug use: Never FAMILY HISTORY: FAMILY HISTORY Problem Relation Age of Onset No Ocular Disease Mother Ovarian cancer Mother Hypertension Mother No Ocular Disease Father Hypertension Father Asthma Father Diabetes Father No Known Problems Brother Amblyopia Brother Breast Cancer Maternal Grandmother other (Leukemia[other]) Maternal Grandfather Breast Cancer Paternal Grandmother Hypertension Paternal Grandfather Heart Paternal Grandfather other (CHF) Paternal Grandfather REVIEW OF SYMPTOMS: The review of systems data was entered by the nurse and reviewed by me There are no exam notes on file for this visit. PHYSICAL EXAMINATION: General: The patient is 39 year old female, well nourished, well hydrated in no acute distress. The patient is oriented to time, place, and person. VITALS: Blood pressure 148/82, pulse 96, temperature 36.2 ?C (97.1 ?F), temperature source Temporal, resp. rate 14, height 160 cm (5' 3), weight 103.9 kg (229 lb), SpO2 98%, not currently . HEENT: Normal cephalic, ataumatic, pupils are equally round, sclera are anicteric, mucous membranes are moist, oropharynx is clear. Neck has no masses, asymmetry or lymphadenopathy. Thyroid is unremarkable. Respiratory: Clear to auscultation and percussion. Normal respiratory excursion and pattern. Cardiac: Examination is regular rate and rhythm. Abdominal exam: Soft, nontender, with no palpable masses. No hepatosplenomegaly. No palpable hernias. Rectal exam: exam deferred Extremities: no clubbing, cyanosis or edema. No adenopathy. Other: LABORATORY VALUES: As Noted RADIOLOGIC STUDIES: As Noted Assessment IMPRESSION: Multinodular goiter (primary encounter diagnosis) PLAN: 1. Multinodular goiter (E04.2) Thyroid ultrasound revealed multiple nodules on the right side: a 2.2 cm nodule classified as TR3 and a 1.1 cm nodule classified as TR4. Left side nodules require no follow-up. Right side nodules exhibit benign features, but due to size, further evaluation is warranted. - Scheduled fine-needle aspiration (FNA) biopsy for the two right-sided nodules. - Explained FNA procedure, including use of ultrasound guidance, local anesthesia, and potential for bruising. - Specimens will be sent for pathological evaluation and Afirma test to assess risk. - Patient to schedule FNA with electrician front; procedures performed on Mondays and Tuesdays. Diagnoses: (E04.2) Multinodular goiter (primary encounter diagnosis) A letter was sent to Dr. Ortega Medrano MD, MD indicating the above finding for this patient. Return to Clinic: The patient is instructed to follow-up with me 1 week post operatively. (more content not included)... [facility] 03-13-2025 History of Presen t illness Narrative HISTORY AND PHYSICAL Hamlet Teixeira 1985 REFERRING PHYSICIAN: Ortega Medrano MD, MD CHIEF COMPLAINT: Consult HPI: Hamlet Teixeira is a 39-year-old female presenting for evaluation of thyroid nodules. Hamlet was recently diagnosed with thyroid nodules following an ultrasound ordered by her new PCP. The ultrasound revealed a 2.2 cm nodule on the right side, classified as TR3, with recommendations for follow-up ultrasounds at 1, 3, and 5 years. Additionally, a 1.1 cm nodule on the right side was classified as TR4, with ultrasound follow-up recommended. No significant findings were reported on the left side. Hamlet has lost approximately 100 lbs, resulting in significant improvement in knee pain. The patient is being seen by me today at the request of Dr. Ortega Medrano MD, MD for my opinion and advice regarding Multinodular goiter (primary encounter diagnosis). PAST MEDICAL HISTORY Diagnosis Date Anxiety and depression History of abnormal cervical Pap smear 08/27/2006 History of maternal deep vein thrombosis (DVT) 2019 Morbid obesity (HCC) Pulmonary embolism (HCC) 2019 bilateral Thyromegaly 02/18/2025 Vitamin D deficiency PAST SURGICAL HISTORY Procedure Laterality Date REMOVAL GALLBLADDER 2018 Current Outpatient Medications Medication Sig FLUoxetine (PROZAC) 40 mg capsule Take 40 mg by mouth once daily. hydrOXYzine pamoate (VISTARIL) 25 mg capsule Take 25 mg by mouth every 8 hours as needed for anxiety. cholecalciferol (VITAMIN D-3) 50 mcg (2,000 unit) tablet Take 2,000 Units by mouth once daily. SLYND 4 mg (28) tabet Take 1 tablet by mouth once daily. FLUoxetine (PROZAC) 20 mg capsule Take 20 mg by mouth. (Patient taking differently: Take 40 mg by mouth once daily.) No current facility-administered medications for this visit. ALLERGIES: Patient has no known allergies. PERSONAL HISTORY: Social History Tobacco Use Smoking status: Never Smokeless tobacco: Never Vaping Use Vaping status: Never Used Substance Use Topics Alcohol use: Yes Comment: Socially- estimated once monthly Drug use: Never FAMILY HISTORY: FAMILY HISTORY Problem Relation Age of Onset No Ocular Disease Mother Ovarian cancer Mother Hypertension Mother No Ocular Disease Father Hypertension Father Asthma Father Diabetes Father No Known Problems Brother Amblyopia Brother Breast Cancer Maternal Grandmother other (Leukemia[other]) Maternal Grandfather Breast Cancer Paternal Grandmother Hypertension Paternal Grandfather Heart Paternal Grandfather other (CHF) Paternal Grandfather REVIEW OF SYMPTOMS: The review of systems data was entered by the nurse and reviewed by me There are no exam notes on file for this visit. PHYSICAL EXAMINATION: General: The patient is 39 year old female, well nourished, well hydrated in no acute distress. The patient is oriented to time, place, and person. VITALS: Blood pressure 148/82, pulse 96, temperature 36.2 C (97.1 F), temperature source Temporal, resp. rate 14, height 160 cm (5' 3), weight 103.9 kg (229 lb), SpO2 98%, not currently . HEENT: Normal cephalic, ataumatic, pupils are equally round, sclera are anicteric, mucous membranes are moist, oropharynx is clear. Neck has no masses, asymmetry or lymphadenopathy. Thyroid is unremarkable. Respiratory: Clear to auscultation and percussion. Normal respiratory excursion and pattern. Cardiac: Examination is regular rate and rhythm. Abdominal exam: Soft, nontender, with no palpable masses. No hepatosplenomegaly. No palpable hernias. Rectal exam: exam deferred Extremities: no clubbing, cyanosis or edema. No adenopathy. Other: LABORATORY VALUES: As Noted RADIOLOGIC STUDIES: As Noted Assessment IMPRESSION: Multinodular goiter (primary encounter diagnosis) PLAN: 1. Multinodular goiter (E04.2) Thyroid ultrasound revealed multiple nodules on the right side: a 2.2 cm nodule classified as TR3 and a 1.1 cm nodule classified as TR4. Left side nodules require no follow-up. Right side nodules exhibit benign features, but due to size, further evaluation is warranted. - Scheduled fine-needle aspiration (FNA) biopsy for the two right-sided nodules. - Explained FNA procedure, including use of ultrasound guidance, local anesthesia, and potential for bruising. - Specimens will be sent for pathological evaluation and Afirma test to assess risk. - Patient to schedule FNA with electrician front; procedures performed on Mondays and Tuesdays. Diagnoses: (E04.2) Multinodular goiter (primary encounter diagnosis) A letter was sent to Dr. Ortega Medrano MD, MD indicating the above finding for this patient. Return to Clinic: The patient is instructed to follow-up with me 1 week post operatively. Baltazar Courtney III, MD REVIEW OF SYSTEMS: General: The patient notes fatigue, denies weight loss, notes weight gain, denies feeling hot, and denies feelings of cold. Eyes: The patient denies glaucoma, denies eye injury/surgery, does not wear glasses or contacts. Ear/Nose/Throat: The patient denies allergies, denies hayfever, denies ear infections, and denies bloody noses. Cardiovascular: The patient denies chest pain, denies heart disease, denies high blood pressure,denies cardiac stent, denies prior heart attack, denies irregular heart beat, denies high cholesterol, denies poor circulation, denies heart failure, other cardiac issues, denies claudication, denies cold feet, denies peripheral arterial stent. Respiratory: The patient denies tuberculosis, denies pneumonia, denies frequent cough, denies pulmonary embolism, denies shortness of breath, and denies coughing up blood. NOTES blood clots in lung. Gastrointestinal: The patient denies difficulty swallowing, denies acid reflux, denies ulcers, denies vomiting, denies jaundice/hepatitis, notes gallbladder problems, denies black or tarry stools, denies hemorrhoids, denies bleeding from rectum, denies diverticulitis, denies constipation, denies diarrhea, denies loss of stool control, and denies hernias. Kidney/Bladder: The patient denies kidney stones, denies urine infections, and denies bloody urine. Skin: The patient denies a history of skin cancer, denies bleeding/changing moles, and denies a history of skin rash. Neurologic: The patient denies a history of epilepsy/convulsions, denies headaches, denies head/spinal injuries, and denies stroke/TIA. Psychiatric: The patient denies psychiatric medications, NOTES history of depression, and denies voices, denies substance abuse. Endocrine: The patient denies thyroid disorders, denies diabetes, and denies hormonal problems. Hematologic: The patient denies a history of bruising, denies bleeding, and denies anemia, notes blood clots. Infections: The patient denies a history of measles and mumps, denies rheumatic fever, and denies sexually transmitted diseases. Musculoskeletal: The patient denies back pain/injury, denies back problems, denies sciatica, denies knee/foot trouble, denies arthritis, or denies gout. When was patient's last Mammogram screening? N/A Last Colonoscopy: N/A Yelitza Whitlock LPN documented in this encounter [facility] 03-09-2025 Note HNO ID: [id number] Author: YELITZA WHITLOCK LPN Service: ? Author Type: LICENSED NURSE Type: Progress Notes Filed: 03/13/2025 14:16 Note Text: REVIEW OF SYSTEMS: General: The patient notes fatigue, denies weight loss, notes weight gain, denies feeling hot, and denies feelings of cold. Eyes: The patient denies glaucoma, denies eye injury/surgery, does not wear glasses or contacts. Ear/Nose/Throat: The patient denies allergies, denies hayfever, denies ear infections, and denies bloody noses. Cardiovascular: The patient denies chest pain, denies heart disease, denies high blood pressure,denies cardiac stent, denies prior heart attack, denies irregular heart beat, denies high cholesterol, denies poor circulation, denies heart failure, other cardiac issues, denies claudication, denies cold feet, denies peripheral arterial stent. Respiratory: The patient denies tuberculosis, denies pneumonia, denies frequent cough, denies pulmonary embolism, denies shortness of breath, and denies coughing up blood. NOTES blood clots in lung. Gastrointestinal: The patient denies difficulty swallowing, denies acid reflux, denies ulcers, denies vomiting, denies jaundice/hepatitis, notes gallbladder problems, denies black or tarry stools, denies hemorrhoids, denies bleeding from rectum, denies diverticulitis, denies constipation, denies diarrhea, denies loss of stool control, and denies hernias. Kidney/Bladder: The patient denies kidney stones, denies urine infections, and denies bloody urine. Skin: The patient denies a history of skin cancer, denies bleeding/changing moles, and denies a history of skin rash. Neurologic: The patient denies a history of epilepsy/convulsions, denies headaches, denies head/spinal injuries, and denies stroke/TIA. Psychiatric: The patient denies psychiatric medications, NOTES history of depression, and denies voices, denies substance abuse. Endocrine: The patient denies thyroid disorders, denies diabetes, and denies hormonal problems. Hematologic: The patient denies a history of bruising, denies bleeding, and denies anemia, notes blood clots. Infections: The patient denies a history of measles and mumps, denies rheumatic fever, and denies sexually transmitted diseases. Musculoskeletal: The patient denies back pain/injury, denies back problems, denies sciatica, denies knee/foot trouble, denies arthritis, or denies gout. When was patient's last Mammogram screening? N/A Last Colonoscopy: N/A Yelitza Whitlock LPN [facility] 02-12-2025 Radiology Diagnostic study note [facility] Services [address] [place] [address] [id number] Thyroid MR#: [id number] Acct: [id number] Name: HAMELT TEIXEIRA Rep #: [id number] : 1985 F 39 From: Pet er Peer DO PCP: Dr. Ortega Medrano MD Status: RE G CLI Study:Thyroid Date of Exam: 02/12/25 Exam# [id number] Ordering Dr: Ortega Medrano MD PROCEDURE: THYROID 02/12/2025 REASON FOR EXAM: THYROMEGALY TECHNIQUE: Grayscale and color imaging of the thyroid gland. COMPARISON: None. FINDINGS: Right thyroid lobe size: 4.2 cm L by 2.0 cm AP x 2.2 cm T Left thyroid lobe size: 3.7 cm 1.2 cm AP by 1.4 cm T Isthmus: 1.8 mm Background parenchymal echotexture is homogeneous. Nodules: Right nodule 1. Lobe: Upper pole, Location: 2.2, Size: Cm, Composition: Almost completely solid Echogenicity: Isoechoic Margin: Smooth (+0) Shape: Wider than tall Echogenic Foci: None. TI-RADS: TR 3 mildly suspicious ultrasound follow-up recommended at 1 year, 3 year and 5 year Right nodule 2. Lobe: Right, Location: Mid upper, Size: 1.1 cm, Composition: Almost completely solid Echogenicity: Hypoechoic Margin: Smooth (+0) Shape: Wider than tall Echogenic Foci: None. TI-RADS: TR 4 moderately suspicious. Ultrasound follow-up recommended Right nodule 3 lobe: Right, Location: Lower pole, Size: 1.2 cm, Composition: Almost completely solid Echogenicity: Hypoechoic Margin: Smooth Shape: Wider than tall Echogenic Foci: None. TI-RADS: TR 4 moderately suspicious. Ultrasound follow-up recommended Left nodule 1. Lobe: Left, Location: Lower pole, Size: 0.7 cm, Composition: Solid or almost completely solid (+2) Echogenicity: Isoechoic Margin: Smooth (+0) Shape: Wider than tall Echogenic Foci: None. TI-RADS: TR 3 mildly suspicious but no follow-up recommended US/Thyroid IMPRESSION: Normal size thyroid gland with 4 nodules, 3 on the right and 1 on the left. TR 4 moderately suspicious. Ultrasound follow-up recommended. Follow in 1 year RECOMMENDATION: Based on most suspicious nodule. Nodule size = largest diameter Only evaluate nodule if =>5 mm. Growth > 20% in 2 dimensions = worsening. Follow up to 4 nodules. Recommend biopsy for no more than 2 nodules. Reading [facility] CC: Dr. 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 Author Type: Physician Type: Progress Notes Filed: 07/30/2024 15:43 Note Text: Patient presents with: Cough: Sinus issues, sore throat, drainage, WALDEN x 1.5 weeks HPI: Feeling sick for 1 1/2 weeks with waxing and waning symptoms. Positive symptoms: Cough, Sore throat, Sinus pressure, Nasal Congestion, Rhinorrhea, post-nasal drainage, Headache, Malaise, Fatigue, Negative symptoms: Shortness of breath, Wheezing, Chest pain, Fever, OTC: Nyquil, Dayquil MEDICATIONS: Current Outpatient Medications Medication Sig SLYND 4 mg (28) tabet Take 1 tablet by mouth once daily. FLUoxetine (PROZAC) 20 mg capsule Take 20 mg by mouth. No current facility-administered medications for this visit. ALLERGIES: ALLERGIES No Known Allergies VITALS: BP 122/80 Pulse 80 Temp 37 ?C (98.6 ?F) Resp 21 Wt 98.6 kg (217 lb 6 oz) LMP 02/19/2014 SpO2 98% BMI 38.51 kg/m? PHYSICAL EXAM: GEN: mildly ill appearing HEENT: PERRL, EOMI, conjunctiva clear Ears: canals clear. TMs without erythema, bulge, or effusion Sinuses: non-tender frontal sinus, non-tender maxillary sinuses Throat: moist mucous membranes, mild erythema, no exudate Neck: supple, no thyromegaly, no lymphadenopathy HEART: regular rate and rhythm, no murmurs LUNGS: clear to auscultation, no wheezes or crackles, no increased WOB ASSESSMENT/PLAN: 1. Acute non-recurrent sinusitis, unspecified location - ICD9: 461.9, ICD10: J01.90 - Will begin treatment with as per antibiotic as written, see orders - Supportive care with plenty of fluids, rest, and analgesia prn. - AMOXICILLIN 875 MG-POTASSIUM CLAVULANATE 125 MG TABLET Yordy Andersen MD [facility] 07-30-2024 History of Presen t illness Narrative Patient presents with: Cough: Sinus issues, sore throat, drainage, WALDEN x 1.5 weeks HPI: Feeling sick for 1 1/2 weeks with waxing and waning symptoms. Positive symptoms: Cough, Sore throat, Sinus pressure, Nasal Congestion, Rhinorrhea, post-nasal drainage, Headache, Malaise, Fatigue, Negative symptoms: Shortness of breath, Wheezing, Chest pain, Fever, OTC: Nyquil, Dayquil MEDICATIONS: Current Outpatient Medications Medication Sig SLYND 4 mg (28) tabet Take 1 tablet by mouth once daily. FLUoxetine (PROZAC) 20 mg capsule Take 20 mg by mouth. No current facility-administered medications for this visit. ALLERGIES: ALLERGIES No Known Allergies VITALS: BP 122/80 Pulse 80 Temp 37 C (98.6 F) Resp 21 Wt 98.6 kg (217 lb 6 oz) LMP 02/19/2014 SpO2 98% BMI 38.51 kg/m PHYSICAL EXAM: GEN: mildly ill appearing HEENT: PERRL, EOMI, conjunctiva clear Ears: canals clear. TMs without erythema, bulge, or effusion Sinuses: non-tender frontal sinus, non-tender maxillary sinuses Throat: moist mucous membranes, mild erythema, no exudate Neck: supple, no thyromegaly, no lymphadenopathy HEART: regular rate and rhythm, no murmurs LUNGS: clear to auscultation, no wheezes or crackles, no increased WOB ASSESSMENT/PLAN: 1. Acute non-recurrent sinusitis, unspecified location - ICD9: 461.9, ICD10: J01.90 - Will begin treatment with as per antibiotic as written, see orders - Supportive care with plenty of fluids, rest, and analgesia prn. - AMOXICILLIN 875 MG-POTASSIUM CLAVULANATE 125 MG TABLET Yordy Andersen MD documented in this encounter [facility] 07-29-2024 History of Presen t illness Narrative @ASSESSMENTBEGINPHANTOM@ Assessment: Diagnosis Plan 1. Perianal abscess @PLANBEGINPHANTOM@ Plan: 1. Postop education and instructions are given and all questions answered. The patient shows good understanding. 2. Office follow up prn. Objective History: Hamlet Teixeira is a 39 y.o. female who presents today for reevaluation status post office incision and drainage of a left anterior perianal abscess. The patient currently has no symptoms and the area has healed entirely. She has completed her antibiotic. She has no bleeding or drainage. She has no discomfort. Office exam shows total healing to the point of barely being able to detect the area. There is currently no evidence of fistula. The abscess fistula sequence is reviewed with the patient. Education provided and all questions were answered. She is seen in the office today with Maryana Spivey LPN. Physical Exam: @VSAMB@ Physical Exam Constitutional: General: She is not in acute distress. Appearance: She is not ill-appearing. Eyes: General: No scleral icterus. Conjunctiva/sclera: Conjunctivae normal. Pulmonary: Effort: Pulmonary effort is normal. No respiratory distress. Breath sounds: No stridor. Genitourinary: Comments: External only exam is performed today in the office. There is no residual abscess or cellulitis. There is no hematoma. The area has entirely healed and is nearly invisible. There are no new lesions. There is no current evidence of fistula. Skin: General: Skin is warm and dry. Neurological: General: No focal deficit present. Mental Status: She is alert and oriented to person, place, and time. Psychiatric: Mood and Affect: Mood normal. Behavior: Behavior normal. Thought Content: Thought content normal. Judgment: Judgment normal. ROS: Review of Systems as recordedby the director medical economics has been reviewed by me, and I agree except as noted inthe HPI. Past Medical History: Diagnosis Date Anxiety Hemorrhoids Perianal abscess Pulmonary embolus (HCC) Past Surgical History: Procedure Laterality Date CHOLECYSTECTOMY @MEDCMED@ Social History Socioeconomic History Marital status: Spouse name: Not on file Number of children: Not on file Years of education: Not on file Highest education level: Not on file Occupational History Not on file Tobacco Use Smoking status: Never Smokeless tobacco: Never Substance and Sexual Activity Alcohol use: Yes Drug use: Never Sexual activity: Not on file Other Topics Concern Not on file Social History Narrative Not on file Social Drivers of Health Financial Resource Strain: Not on file Food Insecurity: Not on file Transportation Needs: Not on file Physical Activity: Not on file Stress: Not on file Social Connections: Not on file Intimate Partner Violence: Not on file Housing Stability: Not on file No family history on file. Allergies: No Known Allergies PCP: Sommer Flynn MD Electronically signedby Gómez Younger MD on 07/29/2024 at 3:29 PM. documented in this encounter [facility] 07-29-2024 Instructions Maryana Spivey - 07/29/2024 3:00 PM EST -Healed well. documented in this encounter [facility] 07-07-2024 History of Presen t illness Narrative @ASSESSMENTBEGINPHANTOM@ Assessment: Diagnosis Plan 1. Perianal abscess @PLANBEGINPHANTOM@ Plan: Office I&D perianal abscess Augmentin 875 mg po bid for 10 days Office follow up in three weeks to reassess Objective History: Hamlet Teixeira is a 38 y.o. female who presents today for evaluation and treatment of perianal abscess. She has no history of Crohn's. She has had office drainage of a similar abscess in a similar location years ago. The current abscess has been getting progressively worse over the past few days. She denies fever or systemic symptoms. PROCEDURE NOTE In the office in the prone jackknife position with the area sterilized with Betadine and using 0.5% sensorcaine local anesthetic, the abscess was drained using a skin punch biopsy without difficulty. Loculations were broken down and the area completely drained. The patient tolerated the procedure well and no complications were incurred. Physical Exam: @VSAMB@ Physical Exam Constitutional: General: She is not in acute distress. Appearance: She is not ill-appearing. Eyes: General: No scleral icterus. Conjunctiva/sclera: Conjunctivae normal. Pulmonary: Effort: Pulmonary effort is normal. No respiratory distress. Breath sounds: No stridor. Genitourinary: Comments: The patient had a moderately large left anterior quadrant perianal abscess. No other findings were noted on external only exam. There was a minimal amount of cellulitis around it. No fistula tract was noted. There was no evidence of Crohn's. Skin: General: Skin is warm and dry. Neurological: General: No focal deficit present. Mental Status: She is alert and oriented to person, place, and time. Psychiatric: Mood and Affect: Mood normal. Behavior: Behavior normal. Thought Content: Thought content normal. Judgment: Judgment normal. ROS: Review of Systems as recordedby the director medical economics has been reviewed by me, and I agree except as noted inthe HPI. Past Medical History: Diagnosis Date Anxiety Hemorrhoids Perianal abscess Pulmonary embolus (HCC) Past Surgical History: Procedure Laterality Date CHOLECYSTECTOMY @MEDCMED@ Social History Socioeconomic History Marital status: Spouse name: Not on file Number of children: Not on file Years of education: Not on file Highest education level: Not on file Occupational History Not on file Tobacco Use Smoking status: Never Smokeless tobacco: Never Substance and Sexual Activity Alcohol use: Yes Drug use: Never Sexual activity: Not on file Other Topics Concern Not on file Social History Narrative Not on file Social Drivers of Health Financial Resource Strain: Not on file Food Insecurity: Not on file Transportation Needs: Not on file Physical Activity: Not on file Stress: Not on file Social Connections: Not on file Intimate Partner Violence: Not on file Housing Stability: Not on file No family history on file. Allergies: No Known Allergies PCP: Sommer Flynn MD Electronically signedby Gómez Younger MD on 07/07/2024 at 2:51 PM. documented in this encounter [facility] Evaluation note Diagnosis Onset Date Acne acute DVT (deep venous thrombosis) acute Menorrhagia with regular cycle acute Encounter for routine gyneco logical examination noneactive [facility] Work Phone: Evaluation note* Diagnosis Perianal abscess- Primary Abscess of anal and rectal regions [facility] Diagnosis Perianal abscess- Primary Abscess of anal and rectal regions [facility] Diagnosis Acute non-recurrent sinusitis, unspecified location- Primary [facility] information availableW[facility] Work Phone: Evaluation note* Diagnosis Multinodular goiter- Primary Nontoxic multinodular goiter [facility]* Diagnosis Multinodular goiter- Primary Nontoxic multinodular goiter documented [facility] this encounter [facility] for referral (narrative)No reason for referral information availableWBlanchard [facility] Work Phone: Reason for visit Narrative* Consult, Test, Treat (Routine) - Closed Specialty Diagnoses / Procedures Referred By Contac t Referred To Contact General Surgery / GENERAL SURGERY Diagnoses Thyroid nodule fna right thyroid x2 30min Procedures FINE NEEDLE ASPIRATION BX W/O IMG GDN 1ST LESION FINE NEEDLE ASPIRATION BX W/O IMG GDN EA ADDL SURGERY 30 Baltazar Courtney MD [address] [place] [address] Phone: tel: fax: Baltazar Courtney MD [address] [place] [id number] Phone: tel: fax: Referral ID Status Reason Start Date Expiration Date Visits Re quested Visits Authorized [id number] Closed 03/12/2025 08/26/2025 1 1 [facility] Summary Purpose Family History No Family History Records Found Relationship Condition Age at Onset Recorded Date/T leo grandmother Malignant neoplasm of breast Unknown father Hypertension Unknown Diabetes mellitus Unknown mother Hypertension Unknown Advance Directives No Advanced Directives Records Found Advance Directive Response Recorded Date/ Time Living Will No May 07, 2021 7:56pm Power of Front Desk Monitor No April 7:56pm Hospital Course Note [facility] Patient Name: HAMLET TEIXEIRA [id number] Date of : [address] [address] Unit Number: [id number] Discharge Summary Patient Status: ADM IN Attending Doctor: Sia Ashton MD Service Date: 02/08/19 1211 Discharge Summary Admit Date Admission Date Time: 02/06/192047 Anticipated Discharge Date 06/15/19 Final Dx/Problem List 1. Pulmonary embolism Final diagnosis- --Acute PE secondary to NuvaRing --Left sided chest pain and shoulder pain-acute --Reactive leukocytosis Chief Complaint/HPI Chest pain and shoulder pain Reason for Admission Acute PE Hospital Course Mrs. Teixeira is a 33-year-old female with no significant past medical history. Patient presented to the emergency department yesterday for complaints of chest pain and shortness of breath. CTA of the chest done in the emergency department confirmed emboli identified in segmental and subsegmental pulmonary arteries and the lingual and left lower lobe. There are (more content not included)... 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) ACNE, EXCESSIVE AND FREQUENT CYCLE Reason for Visit Acne DVT (deep venous thrombosis) Menorrhagia with regular cycle Encounter for routine gynecological examination Chief Complaint Admit Date [facility] 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 REHIRE r y 2024 10:22am 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 October 25, 2024 7:16 am 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 November 15, 2024 8:4 4am Chief Complaint Admit Date [facility] 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 REHIRE uar y 2024 10:22am 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 October 25, 2024 7:16 am 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 November 15, 2024 8:4 4am THYROMEGALY February 12, 2025 11:2 4am Chief Complaint Admit Date THYROMEGALY February 12, 2025 11:2 4am DISCUSS THYROID SX April 17, 2025 9: 12am Additional Source Comments INFORMATION SOURCE (unrecogn ized section and content) DATE CREATED AUTHOR 02/15/2018 [facility] ([place]) DATE CREATED AUTHOR AUTHOR'S ORGANIZ ATION 08/05/2018 [facility] DATE CREATED AUTHOR AUTHOR'S ORGANIZ ATION 08/05/2018 [facility] DATE CREATED AUTHOR AUTHOR'S ORGANIZ ATION 03/21/2019 [facility] [place] DATE CREATED AUTHOR AUTHOR'S ORGANIZ ATION 07/31/2024 [facility] DATE CREATED AUTHOR AUTHOR'S ORGANIZ ATION 04/15/2025 [facility] DATE CREATED AUTHOR AUTHOR'S ORGANIZ ATION 04/18/2025 [facility] Care Teams (unrecognized sec tion and content) Team Status: Active Member Role Status Dates SOMMER FLYNN Family Provider Active Dr. Sommer Flynn MD Primary Care Provider Active Team Status: Inactive Member Role Status Dates Dr. Sommer Flynn MD Referring Provider Active Michell Woodard DIRECTOR OF CATERING, DIRECTOR OF CATERING-C Attending Provider Active Team Status: Inactive Member Role Status Dates Michell Woodard DIRECTOR OF CATERING, DIRECTOR OF CATERING-C Attending Provider, Referring Provider Active Dr. Sommer Flynn MD Primary Care Provider Active Casting Agent Relationship Specialty Start Date End Date Sommer Flynn MD [address] [place] [address] PCP - General Family Medicine 07/07/24 Casting Agent Relationship Specialty Start Date End Date Sommer Flynn MD [address] [place] [address] PCP - General Family Medicine 07/07/24 Casting Agent Relationship Specialty Start Date End Date Sommer Flynn MD [address] [place] [address] PCP - General Family Medicine 07/30/24 Team Status: Active Member Role Status Dates Dr. Ortega Medrano MD Primary Care Provider Active Team Status: Active Member Role Status Dates Dr. Sommer Flynn MD Primary Care Provider Active Start: October 23, 2024 Health Risk Assessment Attending Provider Active Start: October 23, 2024 Health Risk Assessment Referring Provider Active Start: October 23, 2024 Team Status: Active Member Role Status Dates Dr. Sommer Flynn MD Primary Care Provider Active Start: October 25, 2024 Health Risk Assessment Attending Provider Active Start: October 25, 2024 Health Risk Assessment Referring Provider Active Start: October 25, 2024 Team Status: Active Member Role Status Dates Dr. Sommer Flynn MD Primary Care Provider Active Start: November 15, 2024 Health Risk Assessment Attending Provider Active Start: November 15, 2024 Health Risk Assessment Referring Provider Active Start: November 15, 2024 Team Status: Inactive Member Role Status Dates Dr. Ortega Medrano MD Primary Care Provider Active Start: February 05, 2025 End: February 05, 2025 Dr. Ortega Medrano MD Attending Provider Active Start: February 05, 2025 End: February 05, 2025 Dr. Ortega Medrano MD Referring Provider Active Start: February 05, 2025 End: February 05, 2025 Team Status: Inactive Member Role Status Dates Dr. Ortega Medrano MD Primary Care Provider Active Start: February 12, 2025 End: February 12, 2025 Dr. Ortega Medrano MD Attending Provider Active Start: February 12, 2025 End: February 12, 2025 Dr. Ortega Medrano MD Referring Provider Active Start: February 12, 2025 End: February 12, 2025 Casting Agent Relationship Specialty Start Date End Date Somemr Flynn MD PCP - General Family Medicine 07/30/24 Casting Agent Relationship Specialty Start Date End Date Ortega Medrano MD [address] [facility] [address] [place], [place] [id number] PCP - General Family Medicine 03/09/25 Casting Agent Relationship Specialty Start Date End Date Ortega Medrano MD [address] [address] [place], [place] [id number] PCP - General Family Medicine 03/09/25 Team Status: Active Member Role/Relationship Status Dates Dr. Ortega Medrano MD Primary Care Provider Active Team Status: Inactive Member Role/Relationship Status Dates Dr. Ortega Medrano MD Primary Care Provider Active Start: February 05, 2025 End: February 05, 2025 Dr. Ortega Medrano MD Attending Provider Active Start: February 05, 2025 End: February 05, 2025 Dr. Ortega Medrano MD Referring Provider Active Start: February 05, 2025 End: February 05, 2025 Team Status: Inactive Member Role/Relationship Status Dates Dr. Ortega Medrano MD Primary Care Provider Active Start: February 12, 2025 End: February 12, 2025 Dr. Ortega Medrano MD Attending Provider Active Start: February 12, 2025 End: February 12, 2025 Dr. Ortega Medrano MD Referring Provider Active Start: February 12, 2025 End: February 12, 2025 Team Status: Inactive Member Role/Relationship Status Dates Dr. Ortega Medrano MD Primary Care Provider Active Start: April 17, 2025 End: April 17, 2025 Dr. Ortega Medrano MD Referring Provider Active Start: April 17, 2025 End: April 17, 2025 Dr. Gómez Casiano MD Attending Provider Active Start: April 17, 2025 End: April 17, 2025 Goals (unrecognized section and content) Goals may be documented in a n alternate sectionGoals may be documented in an alternate sectionGoals may be documented in an alternate sectionGoals may be documented in an alternate section Reason for Visit (unrecogniz ed section and content) Reason Comments New Patient Evaluation for peria nal abscess referring Dr. Guerra Other Pt unaccomapnied Reason Comments Follow-up follow up to periana l abscess drainage in office 07/07/24-antibiotic course. Other Pt unaccompanied Reason Comments Cough Sinus issues, sore t hroat, drainage, [place] x 1.5 weeks Reason Comments Consult Source Comments (unrecognize d section and content) In the event this informatio n is protected by the Federal Confidentiality of Alcohol and Drug Abuse Patient Records regulations: The Federal rules restrict any use of the information to criminally investigate or prosecute any alcohol or drug abuse patient.[facility] the event this information is protected by the Federal Confidentiality of Alcohol and Drug Abuse Patient Records regulations: The Federal rules restrict any use of the information to criminally investigate or prosecute any alcohol or drug abuse patient.[facility] the event this information is protected by the Federal Confidentiality of Alcohol and Drug Abuse Patient Records regulations: The Federal rules restrict any use of the information to criminally investigate or prosecute any alcohol or drug abuse patient.[facility] the event this information is protected by the Federal Confidentiality of Alcohol and Drug Abuse Patient Records regulations: The Federal rules restrict any use of the information to criminally investigate or prosecute any alcohol or drug abuse patient.[facility] FOR RECORDS PERTAINING TO PATIENTS WHO ARE [...] BE BASED ON THE PRIMARY CLINICAL RECORDS. [facility]. provides no warranty or guarantee of the accuracy or completeness of information in this document.
== END | disposition home or self-care (01) ==
LOC: US 07:24
PROVIDERS: PCP Family Medicine; Referring Provider Surgery; Visit Provider Surgery
DX: E04.1 Nontoxic single thyroid nodule (principal); C73 Malignant neoplasm of thyroid gland
CPT/HCPCS: 76536

== ENCOUNTER 2025-05-12 14:52 | Observation (INO) | payer OTHER, SELFPAY ==
[2025-05-12] VITALS (15 sets, daily range): BP systolic 133–173; BP diastolic 76–107; PULSE 73–96; RESP 16–18; TEMP 36.1–37.5; O2SAT 90–99; BMI 40.7; BMI 40.4
[2025-05-12] MEDS: Lactated Ringers 1,000 ML 15 ML IV (09:59)
--- NOTE | 2025-05-12 10:18 | PRE.ANES_ITS ---
ASA Classification* ASA Classification ASA Classification: 2 Assessment & Plan Anesthesia* Anesthesia Assessment Anesthesia Assessment: Discussed sedation and/or anesthesia options, risks, benefits, and alternatives with patient/parents/legal guardian/POA. Questions invited. The patient/parents/legal guardian/POA seems to understand and agrees to proceed with anesthesia plan. Reviewed the physical assessment, medical history, allergy history and patient home medications list prior to surgery/procedure/anesthetic and documented any changes. Performed airway and anesthesia risk assessments. Anesthesia Type Anesthesia Type: General (Consider GlideScope for intubation.) History Source History Obtained from:: Patient and Chart Anesthesia Focused Assessment* Temperature: 99.5 F Pulse Rate: 73 Blood Pressure: 148/84 Respiratory Rate: 18 Pulse Ox: 99 Oxygen Delivery Method: Room Air Airway Assessment Mouth opens: >3 cm Mallampati Score: IV Teeth Condition: Caps/Crowns (Patient has a cap On her right lower molar.) Neck Range of motion (ROM): Full ROM Labs Anesthesia Preop lab: CBC WBC 11.0 K/mm3 (4.4-11.0) 02/05/25 12:02/05/25 RBC 4.31 M/mm3 (4.2-5.4) 02/05/25 12:02/05/25 Hgb 13.0 g/dL (12.0-15.0) 02/05/25 12:11 02/05/25 Hct 39.8 % (37-47) 02/05/25 12:02/05/25 Plt Count 382 K/mm3 (150-450) 02/05/25 12:11 02/05/25 CHEMISTRY Potassium 4.1 mmol/L (3.3-5.1) 02/05/25 12:02/05/25 Sodium 138 mmol/L (133-145) 02/05/25 12:11 02/05/25 Phosphorus 2.6 mg/dL (2.7-4.5) L 11/15/24 08:56 11/15/24 BUN 7 mg/dL (4-19) 02/05/25 12:02/05/25 Creatinine 0.82 mg/dL (0.70-1.20) 02/05/25 12:11 02/05/25 Glucose 93 mg/dL (70-99) 02/05/25 12:11 02/05/25 TSH 1.840 uIU/mL (0.300-4.200) 02/05/25 12:11 01/25 10/21 COAG PT 12.9 SECONDS (11.7-14.9) 04/02/20 11:05 HCG, Quant 57086 mIU/mL (1-3) H 10/27/19 15:35 10/27/19 Pre-Assessment Diagnosis/Proposed Procedure Planned Operative Procedure(s): TOTAL THYROIDECTOMY Anesthesia History Anesthesia History - rn rehabilitation: Anesthesia History - rn rehabilitation Hx Hospitalization No 05/06/25 10:07 Any Problems With Anesthesia Yes: PONV 05/06/25 10:07 Cholinesterase deficiency No 05/06/25 10:07 You/Your Family Experience No 05/06/25 10:07 fever (hyperthermia) with Relationship Recent Exposure to Contagious No 05/12/25 09:53 Disease Does patient have nerve No 05/06/25 10:07 stimulator Patient instructed to have device shut off --Does patient have Pacemaker No 05/12/25 09:53 or ICD? When Was Last Pacemaker Check QUESTION #4 FULL TEXT: You/Your Family Experience fever (hyperthermia) with Anesthesia Last Oral Intake Last Oral intake: Last Oral Intake NPO since 21:00 05/12/25 09:53 Meds taken in AM with sips of No 05/12/25 09:53 water? Meds patient instructed to take am of surgery PONV PONV - rn rehabilitation: PONV - rn rehabilitation Female Yes 05/06/25 10:07 HX of Motion Sickness No 05/06/25 10:07 HX of N/V After Surgery Yes 05/06/25 10:07 Non-Smoker Yes 05/06/25 10:07 Duration of Surgery greater Yes 05/06/25 10:07 than 60 minutes Number of Risk Factors 4 05/06/25 10:07 PONV Score Severe Risk 05/06/25 10:07 Height & Weight Height & Weight: Anesthesia: Height & Weight Height 5 ft 3 in 05/12/25 09:53 Weight: 104.326 kg 05/12/25 09:53 Body Mass Index (BMI) 40.7 05/12/25 09:53 Respiratory Assessment Respiratory Assessment - rn rehabilitation: Respiratory Tract Infection Hx - rn rehabilitation Hx Respiratory Tract Infection No 05/06/25 10:07 STOP Sleep Apnea STOP Sleep Apnea - rn rehabilitation: STOP Sleep Apnea - rn rehabilitation Hx Hypertension No 05/06/25 10:07 Hx Sleep Apnea No 05/06/25 10:07 CPAP BIPAP Do you snore loudly (louder Yes 05/06/25 10:07 than talking or can be heard Do you often feel tired/ Yes 05/06/25 10:07 fatigued/ sleepy during daytime? Has anyone observed you stop Yes 05/06/25 10:07 breathing during sleep? STOP Results Positive 05/06/25 10:07 QUESTION #5 FULL TEXT : Do you snore loudly (louder than talking or can be heard through closed doors)? Tobacco Use History Tobacco Use History - rn rehabilitation: Tobacco Use History - rn rehabilitation Tobacco Use Smoking Status Never smoker 05/06/25 10:07 Hx Tobacco Use No 05/06/25 10:07 Years Smoking Packs Smoked per Day Smoking Cessation Date was within the last 15 years Hx Smoking Cessation Date Hx Smoking Cessation Counseling Hematologic Medial History Hematologic Hx - rn rehabilitation: Hematologic Medical Hx - well blower Hx of Blood Transfusion No 05/06/25 10:07 Hx of Transfusion in last 3 No 05/06/25 10:07 Months Date of Last Transfusion (if within last 3 months) Ever experience any problems No 05/06/25 10:07 with transfusion(s)? Specify any problems Hx of Preganancy in last 3 No 05/06/25 10:07 Months Nurse Filling Out Transfusion DSCHRIBER 05/06/25 10:07 & Questions: Date: 05/06/25 05/06/25 10:07 Time: 10:08 05/06/25 10:07 Patient unable to answer at this time (ie. confused, unrespo /Reproduction History /Reproductive History - rn rehabilitation: /Reproductive Hx- rn rehabilitation Hx Now No 05/06/25 10:07 Gestational Age (in weeks): EDC: Hx Hx Para Hx Section SAB No 05/06/25 10:07 Active Medications Active Medications: Current Medications Generic Name Dose Route Start Last Admin Trade Name Freq PRN Reason Stop Dose Admin Lactated Ringer's 1,000 mls @ 15 mls/hr 05/12/25 10:00 05/12/25 09:59 IV 15 mls/hr .Q48H HREO Administration PFSH Medical History Cancer Anxiety Alcohol use High cholesterol Migraine headache Asthma Non-smoker History of stress test Thyroid nodule DVT (deep venous thrombosis) Bilateral pulmonary embolism History of miscarriage, currently Perianal abscess Home Medications ?Medication ?Instructions ?Recorded ?Last Taken ?Type duloxetine 60 mg capsule,delayed 60 mg PO DAILY Unknown History release drospirenone (contraceptive) 4 mg 1 tab PO DAILY #84 t abs 01/01/25 Unknown Rx (28) tablet (Slynd) cholecalciferol (vitamin D3) 50 50 mcg PO DAILY Unknown History mcg (2,000 unit) tablet (Vitamin D3) hydroxyzine pamoate 25 mg capsule 25 mg PO TID PRN PRN anxiety 05/06/25 Unknown History Allergy/AdvReac Type Severity Reaction Status Date / Time No Known Allergies Allergy Verified 05/12/25 09:50 Family History Grandmother Breast cancer Grandfather No problems noted. 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
--- NOTE | 2025-05-12 10:58 | PCM.HP.BLA ---
History and Physical Date of Admission: 05/12/25 Date of Service: 04/17/25 MR#: [id number] Acct: [id number] Name: HAMLET GARCIA Rep #: [id number] : 1985 Provider: Dr. Darian Casiano MD Age/Sex: 39/F Location: [facility] Status: Signed Intake Vital Signs 07/28/2409:30 04/17/2509:28 Height 5 ft 3 in 5 ft 3 in Weight: 227 lb 4 oz BMI 40.2 BP 136/87 H Blood Pressure Location Rt brachial Position Sitting Respiration 18 Pulse 63 Pulse Source Monitor Temp 98.5 F Temp Source Temporal Pulse Oximetry (%) 98 Oxygen Delivery Method room air Intake Visit Reasons: DISCUSS THYROID SX Chief Complaint: discuss thyroid sx Is patient in pain?: No Allergies No Known Allergies Allergy (Verified 04/17/25 09:29) Medications ?Medication ?Instructions ?Recorded ?Confirmed ?Type duloxetine 60 mg capsule,delayed 60 mg PO DAILY 07/25/23 04/17/25 History release cholecalciferol (vitamin D3) 10 10 mcg PO QDAY 07/28/24 04/17/25 History mcg (400 unit) capsule drospirenone (contraceptive) 4 mg 1 tab PO DAILY #84 tabs 01/01/25 04/17/25 Rx (28) tablet (Slynd) PFSH Medical History (Updated 04/17/25 @ 15:[address] Darian Casiano MD) Thyroid nodule DVT (deep venous thrombosis) Bilateral pulmonary embolism History of miscarriage, currently Perianal abscess Exposure to blood Surgical History History of laparoscopic cholecystectomy Family History Grandmother Breast cancerGrandfather No problems noted. 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 They are referred for surgical consultation from PCP, Dr. Medrano and surgeon, Dr. Peguero. Mrs. Garcia shares that her nodule was first found during routine physical exam with her primary care provider. She then proceeded to follow-up with Dr. Peguero who recommended biopsy despite radiology's ultrasound impression due to her overall picture. She underwent biopsy of a right superior and right inferior nodule with Mendota 5 and 3 ratings, respectively. The latter nodule then underwent Afirma testing with a benign diagnosis They do not experience difficulty with swallowing. They do not complain of a new cough. They do not appreciate new voice changes. They do have a history of snoring/sleep apnea. Additionally, their weight has been steadily increasing and they report they are at their heaviest of all time. There also is a history of significant recent fatigue. Mrs. Garcia declares that she awakens feeling unrefreshed and suffers from frequent nighttime awakenings. They also report a history of heavy sweating and have a history of heat intolerance. Other symptoms include: Pertinent negatives: Denial of palpitations, denial of hair or skin changes. They are somewhat unclear of their family history but believe her mother has a history of thyroid pathology requiring surgery. There is no history of prior radiation exposure. Previous work-up has included thyroid ultrasound. This study was performed on 02/12/2025 and showed a right thyroid lobe measuring 4.2 x 2.0 x 2.2 cm. Within this lobe radiology identified 3 nodules measuring 2.2, 1.1, and 1.1 cm. These nodules were rated as TI-RADS 3, TI-RADS 4, and TI-RADS 4, respectively. The left thyroid lobe measured 3.7 x 1.2 x 1.4 cm. Within this lobe radiology identified a nodule measuring 0.7 cm in greatest dimension rated TI-RADS 3. Other tests include: TSH: 1.84, free T4: 1.00 ROS General General: Yes weight change and fatigue; No appetite, colon cancer, breast cancer or weakness HEENT HEENT: Yes swollen glands; No difficulty swallowing, eye injury, eye surgery or hoarseness Endo Endocrine: Yes thyroid disease and thyroid cancer; No diabetes mellitus, Hair loss, heat intolerance or cold intolerance Skin Skin: No rash or changing moles Musc Musculoskeletal: No back problems, arthritis, rheumatoid arthritis, gout or joint pain Cardio Cardiovascular: No murmur, pacemaker, heart disease, atrial fibrillation, high blood pressure, heart attack, heart stent, palpitations, shortness of breath with exertion or chest pain Psych Psychiatric: Yes anxiety; No depression or hearing voices Resp Respiratory: No shortness of breath, No sleep apnea, No cough, No COPD, No asthma, No emphysema and No wheezing Gastro Gastrointestinal: No abdominal pain, No nausea or vomiting, No diarrhea, No constipation, No blood in stool, No acid reflux, Yes hemorrhoids, No ulcers, Yes gallbladder problem and No black,tarry stools Raghavendra Hematologic: No blood thinners, No blood disorders, No bleeding, No anemia and Yes blood clots Neuro Neurologic: No numbness, No tingling and No weakness Exam Const General: cooperative and anxious Orientation: alert, awake and oriented x3 Neck Other: Subtly palpable right thyroid nodule is mildly tender to palpation. Mildly disparate right thyroid lobe greater than left thyroid lobe. No palpable cervical lymphadenopathy. Assessment and Plan Assessment and Plan (1) Multiple thyroid nodules: Status: Acute Comment: Patient is 39-year-old female, euthyroid from an endocrine standpoint, who makes surgical consultation related to recently diagnosed thyroid nodules that were biopsied and right superior nodule was deemed suspicious for papillary thyroid carcinoma. Nodule reportedly found during routine exam and patient has no history of endocrine disorders. A second nodule was also biopsied with a atypical result, however, reflex Afirma testing showed this to be benign. Therefore, it would appear patient has a 2.2 cm Mendota 5 nodule suspicious for unifocal PTC. I held a lengthy conversation today with Mrs. Garcia regarding her surgical options. I suggested that [place] [employer] would generally recommend thyroid lobectomy with isthmusectomy in this setting (low risk PTC) as a means of trying to mitigate the risks around surgery?specifically for this procedure including hypoparathyroidism and recurrent laryngeal nerve injury. Hand drawings were used to illustrate relevant anatomy. I did go on to describe the propensity of papillary thyroid cancer for leeanne spread. I stated that prophylactic central neck dissection is no longer standard and instead suggested we proceed with a preoperative soft tissue ultrasound for lymph node mapping purposes. I shared that if any concerning lymph nodes were identified we would have to proceed with FNA biopsy and determine how this impacts the overall operative plan. Concerning lateral neck nodes could require tertiary referral if there is a high likelihood of needing lateral neck dissection. Otherwise, I stated her care should be able to be managed here in [place]. Lastly, I described the implications for risk stratification on papillary thyroid cancer as it relates to lymph node metastasis and the need for radioactive iodine therapy. I connected this back to choice for surgery and suggested that postoperative treatment with DAY and surveillance with thyroglobulin monitoring is simpler following total thyroidectomy, but maintained these were not reasons in and of themselves to exclude initial ARIS recommendation for lobectomy. I assured her that completion thyroidectomy should be possible if indicated simply preserving of urgent anatomic planes. Patient states that she is now leaning towards probably deciding for lobectomy with isthmusectomy but wishes to discuss things further with her . Plan: ? Await patient response on total thyroidectomy versus thyroid lobectomy with isthmusectomy using intraoperative nerve monitoring ? Soft tissue ultrasound for lymph node mapping I have examined the patient the following changes are noted: Patient completed lymph node mapping which revealed no suspicious adenopathy. She also visited with her family and has elected to proceed with total thyroidectomy with intraoperative nerve monitoring. She presents today for the procedure. Today I addended her consent to include the possibility of central lymph node dissection in the event that we would find adenopathy that was clinically suspicious, but shared with her I felt this was unlikely given her history. We otherwise reviewed the expectation of the procedure and postprocedure recovery directions. Questions were answered from patient and her family. Will now proceed to the operating room for total thyroidectomy with intraoperative nerve monitoring and possible central neck (lymph node) dissection if clinically indicated. Postoperative observational stay planned.
--- NOTE | 2025-05-12 11:00 | THYROID_PTH ---
PATIENT: HAMLET TEIXEIRA LOC: MS3 U#:[id number] AGE/SX: 39/F ROOM: NE315 RE05/12/[address]: Dr. Darian Casiano MD : 1985 BED: 1 DIS: 05/13/2025 SPEC #: [id number] RECD: 05/12/25 15:58 STATUS: RYAN REBev #: [id number] SONJA: 05/12/25 11:[address]: Darian Casiano DEPT: SURGICAL PATHOLOGY RECD BY: Qasim Turpin ENTERED: 05/13/25 11:40 SP TYPE: THYROID OTHR DR: Dr. Naldo Medrano MD Tissues: A - Thyroid gland, NOS Procedures: Surgery Specimen Level V Comments: Called the office on 06/12/25 at 9:37am and spoke with Informed her that case was sent to [facility] for Formal Consultation on 06/11/25 and will update with reports that we receive. HEADER OPERATION: Total thyroidectomy with intraoperative nerve monitoring PRE-OP DIAGNOSIS: Multiple thyroid nodules TISSUE SUBMITTED: A- Total thyroid *stitch lutz right superior pole* MICROSCOPIC DIAGNOSIS A. Thyroid, total thyroidectomy: - Multinodular goiter with areas of hyperplasia and arising in the background of slight lymphocytic thyroiditis, benign MICROSCOPIC DESCRIPTION Slides are reviewed. GROSS DESCRIPTION A. Received in formalin labeled with the patient's name and date of . Designated as total thyroid is a 13.9 g thyroidectomy with a suture designated as right superior pole and consisting of: Left lobe: 3.0 x 1.8 x 1.3 cmIsthmus/pyramidal lobe: 2.7 x 1.8 x 0.6 cmRight lobe: 4.1 x 3.0 x 1.4 cm The anterior capsular surfaces are intact and somewhat shaggy while the posterior capsule is cauterized. The specimen is inked as follows: Left, anterior: GreenIsthmus/pyramidal lobe, anterior: OrangeRight, anterior: BluePosterior: Black The specimen is serially sectioned from superior to inferior revealing the following 4 nodules as follows: Nodule #1, 2.7 x 1.8 x 1.7 cm: Right superior to mid, sherman-pink, focally congested and well-circumscribed with a possible capsule; it abuts the overlying ink and measures 2.7 x 1.8 x 1.7 cm.Nodule #2, 1.1 x 0.9 x 0.8 cm: Right mid to inferior, sherman-pink and well-circumscribed, located 0.3 cm from nodule #1 and abuts the overlying ink. A definitive capsule is not identified. Nodule #3, 0.3 x 0.3 x 0.2 cm: Right inferior, sherman-pink and located 0.1 cm from nodule #2 and 0.5 cm from nodule #1, and abuts the overlying ink. A definitive capsule is not identified. Nodule #4, 0.7 x 0.6 x 0.5 cm: Left mid to inferior and abuts the overlying ink. A definitive capsule is not identified. Loading Checker sections are submitted, to include the entirety of the nodules (approximately 90% of the specimen) as follows: A1-A4: Nodule #1A5-A7: Nodules #1 and #2A8: Nodule #3 to nodule #2, perpendicularA9: Nodule #3, perpendicular and isthmus/pyramidal [id number]-[id number]: Nodule #4 SC 05/13/2025 CPT:57305 ADDENDUM ADDENDUM ADDENDUM ADDENDUM 06/11/2025 09:01 ADDENDUM 06/11/2025 09:01 ADDENDUM 06/11/2025 09:01 ADDENDUM 06/11/2025 09:01 ADDENDUM 06/11/2025 09:01 ADDENDUM 06/19/2025 10:50 Expert consultation at [facility] and correlation with the thyroid FNA performed at [facility] ([facility] [id number]) is PENDING per Dr Casiano's request. A separate report from [facility] will follow. This addendum is added to incorporate an outside pathology consultation report. The case was examined at [facility] by Dr. Carter (#[id number]) and the following diagnosis was rendered. A. 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 - Background thyroid with benign follicular nodular disease and patchy chronic lymphocytic thyroiditis. Please see complete above mentioned consultation report in EMR
[2025-05-12] MEDS: Lidocaine 1% (5 ml sdv) 5 ML Vial IV (11:14)
[2025-05-12] MEDS: fentaNYL 100 MCG/2 ML Ampul IV (11:23)
[2025-05-12] MEDS: DiphenhydrAMINE 50 MG/ML Syringe 25 MG IV (11:30)
[2025-05-12] MEDS: REMIFENTANIL HCL 1 MG VIAL 2 MG IV (13:06)
--- NOTE | 2025-05-12 14:48 | PCM.OPRPT ---
Procedures Endocrine CF Procedures [id number]: [id number] Removal of thyroid Operative Report (Standard) Operative Information Date of Procedure: 05/12/25 Pre-Operative Diagnosis: Papillary thyroid carcinoma right thyroid lobe Post-Operative Diagnosis: Same Surgery/Procedure Performed: Total thyroidectomy with intraoperative nerve monitoring software asset management analyst: Yes Pug Mill Operator Helper: Rosalinda Schmitt Tasks completed by airline pilot/first officer: Opening & closing and Retracting Type of Anesthesia: General/Supplemental RN Documented Start/Stop Times: Operation Date: 05/12/25 11:00 Case Time Into Pre-Op 05/12/25 09:51 Out of Pre-Op 05/12/25 11:03 Anesthesia Start 05/12/25 11:07 Into Room 05/12/25 11:07 Procedure Start 05/12/25 11:44 Procedure End 05/12/25 14:53 Anesthesia End 05/12/25 15:03 Out of Room 05/12/25 15:03 Into Recovery 05/12/25 15:06 Out of Recovery 05/12/25 16:41 Procedure Start Time: 11:44 Procedure Stop Time: 14:53 Select all DRAINS/GRAFTS/IMPLANTS that apply: None Estimated Blood Loss: 25 Specimen collected: Yes Description of specimen(s) removed: Total thyroid with stitch marking superior pole Description of surgery: After appropriate identification in the preoperative holding area, the patient was brought to the operating room where she was positioned supine with arms tucked taking care to pad the ulnar nerve bilaterally. The patient was positioned with a shoulder roll so that her head was in extension but supported. Induction of general endotracheal anesthetic was begun and a NIMS tube was placed under glidescope view to confirm coaptation with the vocal cords anteriorly. Tube was then secured to keep apposition of the electrodes with the cords. The Nims electrodes were placed and connected to the monitor. We had appropriate resistance showing on the monitor and tapping at the level of the cricoid produce a graphical representation of the impulse on the monitor. Patient's neck was then prepped and draped in usual sterile fashion and a formal timeout was conducted with those present. The lowest skin fold to the sternal notch was selected for incision site (this resided approximately 2 fingerbreadths cephalad to the notch). Local anesthetic was instilled and a incision was extended for 2.5 cm on either side of midline. Electrocautery was used to deepen this incision through the level of the platysma. Subplatysmal flaps were raised with the use of electrocautery and blunt dissection. The strap muscles were then divided along the medial raphe bringing us down to the level of the thyroid. Capsular attachments to the thyroid were divided with the use of LigaSure or bluntly swept away with a peanut sponge. Retractors were placed providing visualization of the superior pole of the right lobe of the thyroid. The vessels of the superior pole were sequentially divided with the use of the LigaSure device. We then moved inferiorly and divided those polar vessels with LigaSure. The inferior parathyroid gland was grossly visualized and preserved on its vascular pedicle with this division. With the poles freed, the thyroid was mobilized medially by bluntly the remaining strap muscle fibers from the thyroid capsule and using LigaSure to divide the middle thyroid vein. Blunt dissection parallel to the presumed course of the recurrent laryngeal nerve was used to expose the tracheoesophageal groove. Here I encountered a positive signal for the right recurrent laryngeal nerve and was shortly thereafter able to visualize the nerve. The nerve positively identified, I began carefully dissecting off the remaining tracheal attachments around the area of the nerve as well as completely freeing the poles to improve overall mobility. In the area of the ligament of Reddy I secured the stay side tracheal attachments with silk ligatures to try to facilitate hemostasis, tested the nerve for intact function, and then applied bipolar energy to the tissue before its division. Once the right thyroid lobe was elevated at least 2 to 3 mm anterior to the insertion point, electrocautery was used to remove the isthmus from the anterior surface of the trachea. Superiorly I identified a pyramidal lobe of the thyroid that was taken en bloc with our specimen using electrocautery. Before moving to the left side I inspected the pretracheal region of the surgical cavity and also palpated for any signs of abnormal level 6 lymph nodes. No concerning adenopathy was appreciated but I did note the presence of a high riding innominate artery. With this observation I decided there was no indication to proceed with a central neck dissection. I then moved to removal of the left thyroid lobe with a similar technique taking care to remove the strap muscles from their capsular attachments to the lobe. The superior pole vessels were taken in like fashion with use of LigaSure energy. The inferior pole vessels and middle thyroid vein were also divided with LigaSure energy. With these divisions and improved mobility on the thyroid I was able to identify, grossly, both a superior parathyroid (located in proximity to the level of the cricoid) and the inferior parathyroid. I was also able to grossly identify the course of the left recurrent laryngeal nerve and shortly thereafter obtained a strong Nims signal. I employed a similar technique of securing the thyroid attachments to the trachea with a silk ligature and cauterizing the going side side only after testing the nerve for its intact function with our Nims probe. Again, once we were 2 to 3 mm away from the area of the nerve insertion, the gland was removed from the trachea with the use of electrocautery. Final attachments of the superiorly located pyramidal lobe were also taken from the anterior surface of the trachea with electrocautery. Our final specimen was examined for any inadvertently included parathyroid tissue but none was observed. Then the specimen was marked with a 3-0 Vicryl stitch through the right superior pole and passed off the field for pathologic processing. Both surgical cavities were inspected for hemostasis; on the left side some bleeding in the region of the ligament of Reddy closer to the nerve so I sought to limit the use of thermal energy and instead placed a small titanium clip across the tissue which resulted in hemostasis. Surgicel hemostatic agent was applied in both surgical cavities with light pressure. Once this pressure was relieved, the surgical cavity was again inspected and we found hemostasis to be intact on the left. On the right there was some oozing from the ligament of Reddy region but this appeared well from the insertion point of the right recurrent laryngeal nerve so I applied a brief burst of electrocautery to this area and also obtained hemostasis. Both polar regions were inspected as well as viability of the inferior parathyroid and the signal of the recurrent laryngeal nerve. Satisfied with this result, the strap muscles were closed with a running 3-0 Vicryl stitch leaving a small gap at the inferior aspect of the suture line. The platysmal flaps were closed with interrupted 3-0 Vicryl. Some additional local anesthetic was infiltrated throughout the dermis and the skin was closed in a subcuticular fashion using 4-0 Monocryl. Steri-Strips were applied. Telfa and Tegaderm were used as a dressing. The patient was then awakened from anesthetic without event and was taken to PACU for ongoing recovery. Surgical Findings: ? Grossly intact left superior, left inferior and right inferior parathyroid glands that remained well-perfused ? No visually or palpably abnormal lymph nodes ? Visually and audibly (per Nims monitoring) intact bilateral recurrent laryngeal nerves Complications Complications: No Admit VTE Documentation VTE Mechan Device Prophylaxis: SCD's
--- NOTE | 2025-05-12 15:08 | PCM.POST.ANE ---
Anesthesia: Postop Eval I Current Vital Signs Temperature: 98 F Pulse Rate: 96 Blood Pressure: 151/100 Respiratory Rate: 18 Pulse Ox: 94 Oxygen Delivery Method: Room Air Assessment Airway patent: Yes Spontaneous unlabored respirations: Yes Mental status: Awake and Calm nausea: No Vomiting: No Anesthesia Complication: No Fluid Hydration Crystalloid volume administer (ml): 1,400 Total IV fluid infused: 1,400 Progress Note Anesthesia document: Postop Eval 1 completed: Yes
--- NOTE | 2025-05-12 15:35 | SUR.PHASEI ---
pt speaking, speech clear, dr walsh spoke with pt
[2025-05-12 16:05] LABS: PTHIN 76 pg/mL (11-61)
--- NOTE | 2025-05-12 17:09 | POSTOPAN2_ITS ---
Anesthesia Postop Eval I Sum Postop Eval Completion status Anesthesia document: Postop Eval 1 completed: Yes Anesthesia Postop Eval I Summary Anesthesia Postop Eval I Summary: Anesthesia Postop Eval I: Assessment Summary Airway patent Yes 05/12/25 15:10 HEALTH INFORMATION SPECIALIST.[email or web address] Spontaneous unlabored Yes 05/12/25 15:10 HEALTH INFORMATION SPECIALIST.GDOTT respirations Mental status Awake,Calm 05/12/25 15:10 HEALTH INFORMATION SPECIALIST.GDOTT nausea No 05/12/25 15:10 HEALTH INFORMATION SPECIALIST.GDOTT Vomiting No 05/12/25 15:10 HEALTH INFORMATION SPECIALIST.GDOTT Anesthesia Postop Eval I: Fluid Summary Crystalloid volume administer 1,400 05/12/25 15:10 HEALTH INFORMATION SPECIALIST.GDOTT (ml) Colloids volume administered ( ml) Blood Product volume administered (ml) Total IV fluid infused 1,400 05/12/25 15:10 HEALTH INFORMATION SPECIALIST.GDOTT Anesthesia Postop Eval I: Summary Notes Anesthesia Complication No 05/12/25 15:10 HEALTH INFORMATION SPECIALIST.GDOTT Anesthesia Complication Comment: Post-operative progress note Anesthesia: Postop Eval II Evaluation Mental status: Awake and Calm Pain Level: 3 nausea: No Vomiting: No Progress Note Post-operative progress note: Patient's blood pressure Complications Anesthesia Complication: No
--- NOTE | 2025-05-12 17:09 | PCM.POSTANE2 ---
Anesthesia Postop Eval I Sum Postop Eval Completion status Anesthesia document: Postop Eval 1 completed: Yes Anesthesia Postop Eval I Summary Anesthesia Postop Eval I Summary: Anesthesia Postop Eval I: Assessment Summary Airway patent Yes 05/12/25 15:10 JEWEL BEARING POLISHER.[email or web address] Spontaneous unlabored Yes 05/12/25 15:10 JEWEL BEARING POLISHER.GDOTT respirations Mental status Awake,Calm 05/12/25 15:10 JEWEL BEARING POLISHER.GDOTT nausea No 05/12/25 15:10 JEWEL BEARING POLISHER.GDOTT Vomiting No 05/12/25 15:10 JEWEL BEARING POLISHER.GDOTT Anesthesia Postop Eval I: Fluid Summary Crystalloid volume administer 1,400 05/12/25 15:10 JEWEL BEARING POLISHER.GDOTT (ml) Colloids volume administered ( ml) Blood Product volume administered (ml) Total IV fluid infused 1,400 05/12/25 15:10 JEWEL BEARING POLISHER.GDOTT Anesthesia Postop Eval I: Summary Notes Anesthesia Complication No 05/12/25 15:10 JEWEL BEARING POLISHER.GDOTT Anesthesia Complication Comment: Post-operative progress note Anesthesia: Postop Eval II Evaluation Mental status: Awake and Calm Pain Level: 3 nausea: No Vomiting: No Progress Note Post-operative progress note: Patient's blood pressure is consistently elevated through the entire perioperative period. She did remain within her 20% of preop blood pressures and was discharged from PACU to the floor. Dr. Casiano was appraised of her slightly elevated blood pressures. Complications Anesthesia Complication: No
[2025-05-12] MEDS: 0.9% Saline Lock 10 ML Syringe IV (17:20)
[2025-05-12] MEDS: 0.9% Normal Saline (1000mL) 1,000 ML 50 ML IV (17:20)
[2025-05-13 00:39] VITALS: BP 135/75; PULSE 75; RESP 16; TEMP 36.8; O2SAT 97
[2025-05-13 04:47] VITALS: BP 136/78; PULSE 71; RESP 16; TEMP 36.7; O2SAT 98
[2025-05-13 05:54] LABS: PTHIN 58 pg/mL (11-61)
[2025-05-13 05:55] LABS: AST(SGOT) 60 U/L (<=31); Alanine Aminotransfer ALT/SGPT 63 U/L (<=34); Albumin, Serum 4.0 g/dL (3.5-5.0); Alkaline Phosphatase 81 U/L (35-104); Anion Gap 12 (5-15); BUN 8 mg/dL (4-19); BUN/Creat Ratio 10.6 RATIO (10-20); Calcium,Total 8.7 mg/dL (7.6-11.0); Carbon Dioxide 21.6 mmol/L (21.0-32.0); Chloride 106 mmol/L (98-108); Estimated Creatinine Clearance 117.01 ml/min (50-250); Globulin 2.8 g/dL (2.2-4.2); Glucose 171 mg/dL (70-99); Potassium 3.4 mmol/L (3.3-5.1)
--- NOTE | 2025-05-13 07:42 | PN.SURG_ITS ---
Subjective Subjective Patient doing well this morning. She reports that she was up and about last evening able to walk. She states that she does have a mild sore throat but this is better than yesterday. She denies any difficulty with her liquids. She denies any sensation of numbness or tingling. Objective Data Objective Data Vital Signs: Vital Signs Temp Pulse Resp BP Pulse Ox O2 Del Method O2 Flow Rate 98.1 F 71 16 136/78 H 98 Room Air 3 05/13/25 04:47 05/13/25 04:47 05/13/25 04:47 05/13/25 04:47 05/13/25 04:47 05/13/25 04:47 05/12/25 16:00 Oxygen Flow Rate (L/min) 3 Oxygen Delivery Method Room Air Weight: 228 lb 6.382 oz Body Mass Index (BMI) 40.4 Intake & Output: Intake and Output for Last 24 Hours 05/11/25 05/12/25 05/13/25 23:59 23:59 23:59 Intake Total 1115 / 1515 400 / 400 Output Total 5 / 5 Balance 1110 / 1510 400 / 400 Lab / Micro Data 05/13/25 04:20 Labs: Laboratory Results - last 24 hr 05/12/25 15:25: PTH Intact 76 H 05/13/25 04:20: Sodium 140, Potassium 3.4, Chloride 106, Carbon Dioxide 21.6, Anion Gap 12, BUN 8, Creatinine 0.75, Estim Creat Clear Calc 117.01, Est GFR (MDRD) Non-Af 105, BUN/Creatinine Ratio 10.6, Glucose 171 H, Calcium 8.7, Total Bilirubin 0.73, AST 60 H, ALT 63 H, Alkaline Phosphatase 81, Total Protein 6.8, Albumin 4.0, Globulin 2.8, Albumin/Globulin Ratio 1.5, PTH Intact 58 Physical Exam Const oriented x3 and no apparent distress Neck Neck Narrative: Operative dressing in place without strikethrough, minor soft tissue swelling, surgical site remains soft Resp normal respiratory effort Assessment & Plan Assessment/Plan (1) Status post total thyroidectomy: PLAN: Patient 39-year-old female postoperative 1 from total thyroidectomy with intraoperative nerve monitoring. She is doing well this morning. She has improved discomfort and no difficulty with dietary tolerance. She relates no concerns for paresthesias. Will plan to start first dose of replacement levothyroxine today. Instructions for levothyroxine dosing were reviewed with patient for her information when she returns home. Will also advance to regular diet. Discussed outpatient wound care and follow-up instructions. Patient denies any further questions. Provided the above implemented care plan items proceed without complication will plan for discharge later today. Darian Casiano MD General Surgery Endocrine Surgery Pager: [facility] [address] [place] [address], [address] [place] [address] Office: [phone] Charges/Coding Visit Charges Inpatient E&M: 27912 Subs Hosp L1
--- NOTE | 2025-05-13 07:55 | DCINST_ITS ---
Discharge Instructions DC O2, CPAP, BIPAP needs Home O2 Discharge instructions: No Dressing / Incision Discharge Activity: May Not Drive (While it remains difficult to check blind spots quickly) May shower in (days): 1 Ice area for (Minutes): 20 Lifting Restrictions: No lifting greater than 15 pounds for 2 weeks after surgery Dressing / Incision Call your doctor if your incision/area has: Continuous Slow Oozing, Sudden Increased Bleeding, Increased Pain/ Swelling, Increased Redness and Swelling at the incision site Call your doctor if you observe: Numbness or Tingling Remove Dressing in: 1 day (Please leave Steri-Strips intact until they fall off spontaneously or are taken off at your follow-up visit) Cleanse incision/area with: Soap & Water Follow Up Care Please Follow Up With: Darian Casiano MD When: 10-14 days postop Test Results: Test results from this visit will be discussed in further detail at your follow- up appointment, if applicable. Discharge Plan Admission Admit Date/Time: 05/12/25 14:52 Primary Reason for Your Visit: Thyroidectomy Attending Provider: Darian Casiano Primary Care Provider: Naldo Medrano Discharge Orders/Prescriptions Prescriptions: New levothyroxine 150 mcg capsule 150 mcg PO DAILY 35 Days Qty: 35 0RF Continued duloxetine 60 mg capsule,delayed release(DR/EC) 60 mg PO DAILY cholecalciferol (vitamin D3) [Vitamin D3] 50 mcg (2,000 unit) tablet 50 mcg PO DAILY hydroxyzine pamoate 25 mg capsule 25 mg PO TID PRN PRN (Reason: anxiety) Slynd 4 mg (28) tablet 1 tab PO DAILY Qty: 84 3RF Referrals / Follow Up: Naldo Medrano MD [Primary Care Provider, Family Practice] Disposition Disposition (needs filled in before D/C Order can be placed): Home, Self Care
--- NOTE | 2025-05-13 07:59 | DS.PCM_ITS ---
Providers Date of Admission: 05/12/25 Primary Care Physician: Dr. Naldo Medrano MD Reason For Visit: Total Thyroidectomy w/IONM Diagnosis Discharge Diagnosis (1) Status post total thyroidectomy: Status: Acute Code(s): Z98.890 - Other specified postprocedural states; Z90.89 - Acquired absence of other organs Plan: Patient 39-year-old female postoperative 1 from total thyroidectomy with intraoperative nerve monitoring. She is doing well this morning. She has improved discomfort and no difficulty with dietary tolerance. She relates no concerns for paresthesias. Will plan to start first dose of replacement levothyroxine today. Instructions for levothyroxine dosing were reviewed with patient for her information when she returns home. Will also advance to regular diet. Discussed outpatient wound care and follow-up instructions. Patient denies any further questions. Provided the above implemented care plan items proceed without complication will plan for discharge later today. Darian Casiano MD General Surgery Endocrine Surgery Pager: [facility] [address] [place] [address], [address] [place] [phone] Office: [phone] Medications at Discharge Home Medications duloxetine 60 mg capsule,delayed release 60 mg PO DAILY 07/25/23 drospirenone (contraceptive) 4 mg (28) tablet (Slynd) 1 tab PO DAILY #84 tabs 01/01/25 cholecalciferol (vitamin D3) 50 mcg (2,000 unit) tablet (Vitamin D3) 50 mcg PO DAILY 05/06/25 hydroxyzine pamoate 25 mg capsule 25 mg PO TID PRN PRN anxiety 05/06/25 levothyroxine 150 mcg capsule 150 mcg PO DAILY 5 weeks #35 caps 05/13/25 Hospital Course Operations - (Total thyroidectomy) Procedures None Summary of Care Provided Hospital Course: Patient 39-year-old female with biopsy proven papillary thyroid cancer of the right thyroid lobe who underwent total thyroidectomy with intraoperative neuromonitoring on 05/12/2025. Surgery proceeded in uncomplicated fashion and patient was admitted postoperatively to observation for monitoring of her surgical site and perioperative monitoring of her calcium. She had an uneventful postoperative phase and PTH assays were reassuring. The morning of postoperative day 1 she was initiated on replacement levothyroxine and given instructions for its administration as an outpatient. We also reviewed postoperative activity and wound care instructions as well as expectation for outpatient follow-up. Patient confirmed understanding. After advancing to regular diet and confirming her tolerance she was granted discharge to home with outpatient follow-up anticipated in 10 to 14 days. Physical Exam Const alert, oriented x3 and no apparent distress Neck Neck Narrative: Bandage intact without strikethrough. Soft tissue area of the surgical site remains soft. There is minimal swelling. Weight / BMI Weight Weight: 228 lb 6.382 oz Body Mass Index (BMI) 40.4 ABG / Lab / Microbiology Data 05/13/25 04:20 Laboratory: Laboratory Results - last 24 hr 05/12/25 15:25: PTH Intact 76 H 05/13/25 04:20: Sodium 140, Potassium 3.4, Chloride 106, Carbon Dioxide 21.6, Anion Gap 12, BUN 8, Creatinine 0.75, Estim Creat Clear Calc 117.01, Est GFR (MDRD) Non-Af 105, BUN/Creatinine Ratio 10.6, Glucose 171 H, Calcium 8.7, Total Bilirubin 0.73, AST 60 H, ALT 63 H, Alkaline Phosphatase 81, Total Protein 6.8, Albumin 4.0, Globulin 2.8, Albumin/Globulin Ratio 1.5, PTH Intact 58 D/C Instructions May shower in (days): 1 Ice area for (Minutes): 20 Call your doctor if your incision/area has: Continuous Slow Oozing, Sudden Increased Bleeding, Increased Pain/ Swelling, Increased Redness and Swelling at the incision site Call your doctor if you observe: Numbness or Tingling Cleanse incision/area with: Soap & Water DC O2, CPAP, BIPAP Needs Home O2 Discharge instructions: No Please Follow Up With: Darian Casiano MD When: 10-14 days postop Meaningful Use Info Meaningful Use Meaningful Use Diagnoses (Choose all that apply): None applicable Discharge Plan Admission Admit Date/Time: 05/12/25 14:52 Primary Reason for Your Visit: Thyroidectomy Attending Provider: Darian Casiano Primary Care Provider: Naldo Medrano Discharge Orders/Prescriptions Prescriptions: New levothyroxine 150 mcg capsule 150 mcg PO DAILY 35 Days Qty: 35 0RF Continued duloxetine 60 mg capsule,delayed release(DR/EC) 60 mg PO DAILY cholecalciferol (vitamin D3) [Vitamin D3] 50 mcg (2,000 unit) tablet 50 mcg PO DAILY hydroxyzine pamoate 25 mg capsule 25 mg PO TID PRN PRN (Reason: anxiety) Slynd 4 mg (28) tablet 1 tab PO DAILY Qty: 84 3RF Referrals / Follow Up: Naldo Medrano MD [Primary Care Provider, Family Practice] Disposition Disposition (needs filled in before D/C Order can be placed): Home, Self Care Charges/Coding Visit Charges Inpatient E&M: [id number] Disch Hosp
[2025-05-13 09:17] VITALS: BP 112/63; PULSE 74; RESP 16; TEMP 36.7; O2SAT 98
[2025-05-13] MEDS: Cholecalciferol (VIT D3) 25 MCG TABLET (1,000 UNITS) 50 MCG PO (09:21)
--- NOTE | 2025-05-13 15:49 | PHA.DC.MR.R ---
Pharmacy [place] Med Reconciliation Pharmacy Service has performed discharge medication reconciliation for this patient. Medication education papers prepared, patient discharged when counseling was attempted. The patient's discharge medication list was reviewed for discrepancies and discrepancies were resolved. Medications at Discharge Home Medications duloxetine 60 mg capsule,delayed release 60 mg PO DAILY 07/25/23 drospirenone (contraceptive) 4 mg (28) tablet (Slynd) 1 tab PO DAILY #84 tabs 01/01/25 cholecalciferol (vitamin D3) 50 mcg (2,000 unit) tablet (Vitamin D3) 50 mcg PO DAILY 05/06/25 hydroxyzine pamoate 25 mg capsule 25 mg PO TID PRN PRN anxiety 05/06/25 levothyroxine 150 mcg capsule 150 mcg PO DAILY 5 weeks #35 caps 05/13/25
== END 2025-05-13 13:26 | disposition home or self-care (01) ==
LOC: SDC 15:18 → MS3 15:18
PROVIDERS: Admitting Provider Surgery; PCP Family Medicine; Referring Provider Surgery; Visit Provider Surgery
PROC: (CPT 60240; principal; 2025-05-12 10:45)
DX: E04.2 Nontoxic multinodular goiter (principal); Z86.718 Personal history of other venous thrombosis and embolism; Z86.711 Personal history of pulmonary embolism; Z79.899 Other long term (current) drug therapy
CPT/HCPCS: 60240; 00320; 36415; 80053; 83970; 88307; 99221; A4648; A4216; G0378; J2405

== ENCOUNTER → 2025-06-15 | Outpatient (CLI) | payer OTHER, SELFPAY ==
--- OUTSIDE RECORDS SUMMARY | 2025-06-15 20:05 | XMS RPT_ITS | CCD ---
Author Organization [facility] Care Team Providers Care Astronomy Professor Name Role Phone SOMMER FLYNN Unavailable Unavailable HRICS, COLT Unavailable Unavailable SOMMER FLYNN Unavailable Unavailable KAREN ARAIZA Unavailable Unavailable IMCA Unavailable Unavailable GINNA CANTU Unavailable Unavailable Dr. Sommer Flynn Referring Provider [phone] Vance AIR COMPRESSOR ENGINEER, AIR COMPRESSOR ENGINEERLibraC Michell Attending Provider Sommer Flynn MD Primary Care Provider Sommer Flynn MD Primary Care Provider GÓMEZ YOUNGER Attending Unavailable SOMMER FLYNN Primary Care Unavailable GÓMEZ YOUNGER Attending Unavailable SOMMER FLYNN Primary Care Unavailable Dr. Sommer Flynn MD Primary Care Provider Assessment, Health Risk Attending Provider Unava ilable Assessment, Health Risk Referring Provider Unava ilable Dr. Ortega Medrano MD Primary Care Provider [phone] Dr. Ortega Medrano MD Attending Provider [phone] Dr. Ortega Medrano MD Referring Provider Sommer Flynn MD Primary Care Provider Ortega Medrano MD Primary Care Provider Dr. Gómez Casiano MD Attending Provider Dr. Gómez Casiano MD Referring Provider Dr. Ortega Medrano MD Primary Care Physician Dr. Ortega Medrano MD Attending Physician [phone] Dr. Gómez Casiano MD Attending Physician Dr. Gómez Casiano MD Nurse Practitioner Dr. Gómez Casiano MD Admitting Physician MIRANDE, SOMMER E Primary Care Unavailable BALTAZAR COURTNEY Attending Unavailable ORTEGA MEDRANO Primary Care Unavailable ORTEGA MEDRANO Primary Care Unavailable BALTAZAR COURTNEY Referring Unavailable BALTAZAR COURTNEY Attending Unavailable Gómez Casiano Admitting Unavailable Gómez Casiano Referring Unavailable Gómez Casiano Attending Unavailable Ortega Medrano Primary Care Unavailable Mirande, Sommer Attending Unavailable Mirande, Sommer Primary Care Unavailable Assessment, Health Risk Referring Unavaila ble Assessment, Health Risk Attending Unavaila ble Mirande, Sommer Primary Care Unavailable Assessment, Health Risk Referring Unavaila ble Assessment, Health Risk Attending Unavaila ble Mirande, Sommer Primary Care Unavailable Gómez Casiano Attending Unavailable Gómez Casiano Consulting Unavailable Gómez Casiano Admitting Unavailable Gómez Casiano Referring Unavailable Ortega Medrano Primary Care Unavailable Gómez Casiano Attending Unavailable Gómez Casiano Consulting Unavailable Gómez Casiano Referring Unavailable Ortega Medrano Primary Care Unavailable Mirande, Sommer Primary Care Unavailable Lali Gallagher Attending Unavailable [place], Sommer Referring Unavailable Gómez Casiano Attending Unavailable Ortega Medrano Primary Care Unavailable Ortega Medrano Referring Unavailable Ortega Medrano Referring Unavailable Gómez Casiano Attending Unavailable Ortega Medrano Primary Care Unavailable Assessment, Health Risk Referring Unavaila ble Assessment, Health Risk Attending Unavaila ble Mirande, Sommer Primary Care Unavailable Mirande, Sommer Primary Care Unavailable Lali Gallagher Referring Unavailable Lali Gallagher Attending Unavailable Ortega Medrano Attending Unavailable Ortega Medrano Primary Care Unavailable Ortega Medrano Referring Unavailable Ortega Medrano Attending Unavailable Ortega Medrano Primary Care Unavailable Ortega Medrano Referring Unavailable Gómez Casiano Referring Unavailable Gómez Casiano Attending Unavailable Ortega Medrano Primary Care Unavailable Medications Current Medications Medication Drug Class(es) [...] days. 20 tablet 07/07/2024 07/17/2024 Active cholecalciferol 0.05 mg oral tablet (11 sources) Vitamin D Start: 05-06-2025 take 1 tablet by mouth once daily Cholecalciferol (Vitamin D3) (Vitamin D3) 50 mcg (2,000 unit) tablet Active 50 ug PO DAILY May 06, 2025 12:00am Complies with drug therapy Start: 07-28-2024 End: 05-06-2025 take 1 capsule by mouth once daily Cholecalciferol (Vitamin D3) 10 mcg (400 unit) capsule Discontinued 10 ug PO daily July 28, 2024 1:00am May 06, 2025 10:05am take 1 tablet by [facility] once daily cholecalciferol (VITAMIN D-3) 50 mcg (2,000 unit) tablet Take 2,000 Units by mouth once daily. Active DULoxetine 60 mg delayed release oral capsule (7 sources) Serotonin and Norepinephrine Reuptake Inhibitor Start: 07-25-2023 take 1 capsule by mouth once daily Duloxetine 60 mg capsule,delayed release(DR/EC) Active 60 mg PO DAILY July 25, 2023 1:00am Complies with drug therapy FLUoxetine 40 mg oral capsule (8 sources) Serotonin Reuptake Inhibitor Start: 11-28-2024 take 1 capsule by mouth once daily FLUoxetine (PROZAC) 40 mg capsule Take 40 mg by mouth once daily. 11/28/2024 Active Start: 06-27-2024 FLUoxetine (SC OZAC) 20 mg capsule Take 20 mg by mouth. 06/27/2024 Active hydrOXYzine pamoate 25 mg oral capsule (5 sources) Antihistamine Start: 05-06-2025 take 1 capsule by mouth three times daily as needed for anxiety Hydroxyzine Pamoate 25 mg capsule Active 25 mg PO 3 TIMES DAILY NEEDED as needed for anxiety May 06, 2025 12:00am Complies with drug therapy Start: 01-09-2025 take 1 capsule by mo [facility] every eight hours as needed hydrOXYzine pamoate (VISTARIL) 25 mg capsule Take 25 mg by mouth every 8 hours as needed for anxiety. 01/09/2025 Active levothyroxine sodium 0.15 mg oral capsule (2 sources) l-Thyroxine Start: 05-13-2025 take 1 capsule by mouth once daily Levothyroxine 150 mcg capsule Active 150 ug PO DAILY 35 35 0 May 13, 2025 12:00am Status post total thyroidectomy Other specified postprocedural states Acquired absence of other organs Complies with drug therapy Multiple Vitamin (multivitamin) capsule (2 sources) take [...] As directed Blood Pressure Test Kit-Large kit (6 sources) Start: 04-02-2020 End: 07-08-2020 Blood Pressure Test Kit-Large kit Discontinued 0 .ROUTE .MEDSUPPLY 1 0 April 02, 2020 12:00am July 08, 2020 4:00pm As directed Start: 04-02-2020 End: 07-08-2020 Blood Pressure Test Kit-Larg e kit Discontinued 0 .ROUTE .MEDSUPPLY 1 April 02, 2020 12:00am July 08, 2020 4:00pm As directed Breast Pump mynor (2 sources) Start: 01-20-2015 End: 07-30-2024 Breast Pump mnyor Indications : Interruption in breast feeding Use [...] 07/30/2024 Discontinued citalopram 20 mg oral tablet (14 sources) Serotonin Reuptake Inhibitor Start: 03-25-2020 End: 07-25-2023 take 1 tablet by mouth once daily Citalopram 20 MG tablet Discontinued 20 mg PO DAILY May 27, 2020 7:26am July 25, 2023 10:02am anxiety and depression drospirenone 4 mg oral tablet (20 sources) Progestin Start: 07-25-2023 End: 01-01-2025 take 1 tablet by mouth once daily Drospirenone (Contraceptive) (Slynd) 4 mg (28) tablet Discontinued 1 {tbl} PO DAILY 84 3 September 15, 2024 10:04am January 01, 2025 2:37pm Encounter for contraceptive management Encounter for contraceptive management, unspecified 0.4 ml enoxaparin sodium 100 mg/ml prefilled syringe (7 sources) Low Molecular Weight Heparin Start: 01-28-2020 End: 07-08-2020 Enoxaparin (Lovenox) 40 mg/0.4 mL syringe Discontinued 40 mg SC DAILY January 28, 2020 12:00am July 08, 2020 4:00pm coag disorder fenugreek seed extract 500 mg cap (1 source) End: 07-30-2024 fenugreek seed extract 500 mg cap Take by mouth. 07/30/2024 Discontinued ferrous sulfate 325 mg oral tablet (7 sources) Start: 04-02-2020 End: 07-08-2020 Ferrous Sulfate 325 MG tablet Discontinued 1 {tbl} PO DAILY April 02, 2020 12:00am July 08, 2020 4:00pm anemia naproxen 500 mg oral tablet (7 sources) Nonsteroidal Anti-inflammatory Drug Start: 05-07-2021 End: 07-25-2023 take 1 tablet by mouth twice daily as needed Naproxen 500 MG tablet Discontinued 500 mg PO TWICE DAILY NEEDED May 07, 2021 12:00am July 25, 2023 10:02am NIFEdipine 30 mg osmotic 24 hr extended release oral tablet (14 sources) Dihydropyridine Calcium Channel Braden Start: 04-05-2020 End: 05-28-2020 take 1 tablet by mouth once daily Nifedipine 30 MG tablet extended release 24hr Discontinued 30 mg PO DAILY May 27, 2020 7:26am May 28, 2020 7:43am blood pressure nitrofurantoin, macrocrystals 25 mg / nitrofurantoin, monohydrate 75 mg oral capsule (7 sources) Nitrofuran Antibacterial Start: 11-09-2019 End: 11-16-2019 [...] daily. 1 Package 12 06/15/2015 07/30/2024 Discontinued Uberyjsm-Na-Rky-Fe-FA ( VITAMIN) tab (1 source) Start: 04-23-2014 End: 07-30-2024 take 1 tablet by mouth once daily Srifhygr-Jw-Ohd-Fe -FA ( VITAMIN) tab Take 1 tablet by mouth once daily. 0 04/23/2014 07/30/2024 Discontinued rivaroxaban 20 mg oral tablet (7 sources) Factor Xa Inhibitor Start: 06-01-2019 End: 11-06-2019 take 1 tablet by mouth once daily Rivaroxaban 20 MG tablet Discontinued 20 mg PO DAILY June 01, 2019 12:00am November 06, 2019 9:02am sulfamethoxazole 800 mg / trimethoprim 160 mg oral tablet (7 sources) Dihydrofolate Reductase Inhibitor Antibacterial, Sulfonamide Antimicrobial Start: 06-01-2019 End: 11-06-2019 Sulfamethoxazole-T rimethoprim 1 TABLET tablet Discontinued 1 {tbl} PO TWICE A DAY 14 0 June 01, 2019 12:00am November 06, 2019 9:01am Start: 06-01-2019 End: 11-06-2019 take 1 tablet by mouth twice daily Sulfamethoxazole-Trimethoprim Discontinu ed 1 TABLET PO TWICE A DAY 14 May 31, 2019 11:00pm November 06, 2019 8:01am Problems Active Problems Problem Classification Problem Date Documented Date Episodic/Chronic Anal and rectal conditions (4 sources) Perianal abscess; Translations: [Anal abscess] Onset: 4 07-07-2024 Episodic Contraceptive and procreative management (6 sources) Patient encounter status; Translations: [Encounter for contraceptive management, unspecified] 01-06-2025 Episodic Comment on above: Slynd approval -12/31/25 Deficiency and other anemia (7 sources) Iron deficiency anemia; Translations: [Iron deficiency anemia, unspecified] 07-08-2020 Episodic Diabetes mellitus without complication (7 sources) Abnormal glucose tolerance test; Translations: [Other abnormal glucose] 07-08-2020 Episodic Comment on above: 3hrGTT- normal Hemorrhage during ; abruptio placenta; placenta previa (2 sources) Threatened ; Translations: [Threatened miscarriage] Onset: 8 Episodic Hypertension complicating ; childbirth and the puerperium (7 sources) Elevated blood pressure; Translations: [Unspecified maternal hypertension, third trimester] 07-08-2020 Chronic Comment on above: on procardia XL ru y, recommend IOL 37 weeks Menstrual disorders (9 sources) Menorrhagia; Translations: [Excessive and frequent menstruation with regular cycle] Onset: 4 07-25-2023 Chronic Comment on above: US, slynd Other complications of ; puerperium affecting management of mother (7 sources) Vaginal varices in the puerperium; Translations: [Other venous complications in the puerperium] 04-02-2020 Episodic Comment on above: in previous pregnanc y Other complications of (7 sources) Maternal obesity complicating , childbirth and the puerperium, antepartum; Translations: [Obesity complicating , unspecified trimester] 07-08-2020 Chronic Comment on above: BMI 34- glucola nl a t NOB, encouraged healthy weight gain. Growth US normal Other complications of (7 sources) H/O: miscarriage; Translations: [Supervision of with other poor reproductive or obstetric history, unspecified trimester] 07-08-2020 Episodic Comment on above: Baby ASA Other complications of (7 sources) High risk ; Translations: [Supervision of high risk , unspecified, unspecified trimester] 07-08-2020 Episodic Comment on above: PRR SKYLA: girl Izzy PC: [place] Spouse: [place] Other complications of (7 sources) Asymptomatic bacteriuria in ; Translations: [Asymptomatic bacteriuria during ] 07-08-2020 Episodic Comment on above: macrobid. repeat uri ne culture negative Other complications of (7 sources) Depressive disorder; Translations: [Other mental disorders complicating , third trimester] 07-08-2020 Episodic Comment on above: celexa started 03/24. counseling encouraged. Other complications of (7 sources) History of pre-eclampsia; Translations: [Supervision of with other poor reproductive or obstetric history, unspecified trimester] 07-08-2020 Episodic Comment on above: Baby ASA; baseline l abs nl. Other nutritional; endocrine; and metabolic disorders (4 sources) Body mass index 30+ - obesity; Translations: [Body mass index (BMI) 32.0-32.9, adult] Onset: 4 Chronic Other nutritional; endocrine; and metabolic disorders (1 source) Morbid (severe) obesity due to excess calories; Translations: [Morbid (severe) obesity due to excess calories] Onset: 5 Chronic Other and delivery including normal (11 sources) ; Translations: [Encounter for supervision of normal , unspecified, unspecified trimester] Onset: 5 Resolved: 5 07-08-2020 Episodic Comment on above: genetic-low risk, de clines carrier and Afp screening. Other skin disorders (7 sources) Acne; Translations: [Acne, unspecified] 07-25-2023 Episodic Other skin disorders (1 source) Acne, unspecified; Translations: [Other acne] 07-25-2023 Episodic Other upper respiratory infections (1 source) Acute sinusitis; Translations: [Acute sinusitis, unspecified] 07-30-2024 Episodic Phlebitis; thrombophlebitis and thromboembolism (8 sources) Deep venous thrombosis; Translations: [Acute embolism and thrombosis of unspecified deep veins of unspecified lower extremity] 07-25-2023 Episodic Comment on above: 2019 Polyhydramnios and other problems of amniotic cavity (20 sources) Subchorionic hematoma; Translations: [Other specified disorders of amniotic fluid and membranes, first trimester, not applicable or unspecified] Onset: 5 Resolved: 5 03-11-2020 Episodic Comment on above: 11/05 resolving. Rest art ASA and lovenox weekly NST. Del at 3 7 wk RESOLVED Prolapse of female genital organs (6 sources) Disorder of rectum; Translations: [Rectocele] 10-22-2023 Chronic Comment on above: colon& Rectal Surger y referral, Dr. Martin Vasquez Pulmonary heart disease (7 sources) Pulmonary embolism; Translations: [Other pulmonary embolism without acute cor pulmonale] 07-08-2020 Episodic Comment on above: prophylactic lovenox 40 mg BID this and plan 6 weeks PP. Residual codes; unclassified (7 sources) Hereditary disorder of endocrine system; Translations: [Genetic susceptibility to other disease] 04-02-2020 Episodic Comment on above: Hetero Residual codes; unclassified (1 source) Other specified postprocedural states; Translations: [Other specified postprocedural states] Onset: 5 Episodic Residual codes; unclassified (1 source) Acquired absence of other organs; Translations: [Acquired absence of other organs] Onset: 5 Episodic Skin and subcutaneous tissue infections (7 sources) Abscess; Translations: [Cutaneous abscess, unspecified] 06-02-2019 Episodic Sprains and strains (14 sources) Lower back injury; Translations: [Strain of muscle, fascia and tendon of lower back, initial encounter] 05-15-2021 Episodic Superficial injury; contusion (7 sources) Contusion of right foot; Translations: [Contusion of right foot, initial encounter] 05-15-2021 Episodic Thyroid disorders (16 sources) Multinodular goiter; Translations: [Nontoxic multinodular goiter] Onset: 5 03-13-2025 Chronic Comment on above: Patient is 39-year-o ld female, euthyroid from an endocrine standpoint, who makes surgical consultation related to recently diagnosed thyroid nodules that were biopsied and right superior nodule was deemed suspicious for papillary thyroid carcinoma. Nodule reportedly found during routine exam and patient has no history of endocrine disorders. A second nodule was also biopsied with a "atypical" result, however, reflex Afirma testing showed this to be benign. Therefore, it would appear patient has a 2.2 cm Blackfoot 5 nodule suspicious for unifocal PTC. I held a lengthy conversation today with Mrs. Teixeira regarding her surgical options. I suggested that [place] [employer] would generally recommend thyroid lobectomy with isthmusectomy in this setting (low risk PTC) as a means of trying to mitigate the risks around surgery specifically for this procedure including hypoparathyroidism and recurrent laryngeal nerve injury. Hand drawings were used to illustrate relevant anatomy. I did go on to describe the propensity of papillary thyroid cancer for leeanne spread. I stated that prophylactic central neck dissection is no longer standard and instead suggested we proceed with a preoperative soft tissue ultrasound for lymph node mapping purposes. I shared that if any concerning lymph nodes were identified we would have to proceed with FNA biopsy and determine how this impacts the overall operative plan. Concerning lateral neck nodes could require tertiary referral if there is a high likelihood of needing lateral neck dissection. Otherwise, I stated her care should be able to be managed here in [place]. Lastly, I described the implications for risk stratification on papillary thyroid cancer as it relates to lymph node metastasis and the need for radioactive iodine therapy. I connected this back to choice for surgery and suggested that postoperative treatment with DAY and surveillance with thyroglobulin monitoring is simpler following total thyroidectomy, but maintained these were not reasons in and of themselves to exclude initial ARIS recommendation for lobectomy. I assured her that completion thyroidectomy should be possible if indicated simply preserving of urgent anatomic planes. Patient states that she is now leaning towards probably deciding for lobectomy with isthmusectomy but wishes to discuss things further with her . Unclassified (1 source) Unknown / UNK(Unknown) Onset: 8 Unclassified (1 source) Consult Onset: 5 Past or Other Problems Problem Classification Problem [...] Onset: 05-25-2014 Resolved: 10-15-2014 10-15-2014 Episodic Unclassified (7 sources) No history of clinical finding in subject; Translations: [No significant past medical history] 07-25-2023 Results Test Name Value Interpretation Reference Range Facility [facility] 05-22-2025 [facility] Telephone (GENSWS) HAMLET TEIXEIRA ([id number]) 1985 F [facility] Date Time Provider Department 05/22/25 BALTAZAR COURTNEY [facility]Local [employer] During your visit today, we recorded the following information about you: Yelitza Whitlock LPN 05/22/2025 3:02 PM Signed Megan with Dr. Oh Howard office called. Dr. Casiano did total lumpectomy on 05/13/2025. The pathology report comes up as normal tissue/multiple nodular goiter. Fine Needle Aspiration with Dr. Courtney showed suspicion for papillary carcinoma. They need the patients slides sent to them to have a second opinion of the slides. Megan provided phone number to contact [facility] pathology and informed of link for second opinion: [email or web address] Yelitza Whitlock LPN Allergies As of Date: 05/22/2025 (No Known Allergies) Date Reviewed: 03/09/2025 Reviewed by: Yelitza Whitlock LPN - Fully Assessed Reason for Visit: equest for slides from FNA for second opinion [Other] Prescriptions as of 05/22/2025 - FLUoxetine (PROZAC) 40 mg capsule Take [...] by mouth. Problem List As Of Date 05/22/2025 Noted Resolved BMI 32.0-32.9,adult [Z68.32] 05/25/2014 cardiac echogenic focus, antepartum [O35.*05/25/2014 10/15/2014 Supervision of normal first [Z34.00] 09/17/2014 12/17/2014 Polyhydramnios, antepartum [O40.9XX0] 10/05/2014 12/17/2014 Gestational hypertension [O13.9] 10/22/2014 12/17/2014 premature rupture of membranes [O42.919]11/01/2014 12/17/2014 Encounter Status:Closed by YELITZA WHITLOCK on 05/22/25 Normal [facility] Surgery Visit Reporton 05-22 Surgery Visit Report [facility] [address] [place] [address]. [address] [place] [address] OFFICE VISIT Date of Service: 05/22/25 MR#: [id number] Acct: [id number] Name: HAMLET TEIXEIRA Rep #: [id number] : 1985 Provider: Dr. Gómez pineda MD Age/Sex: 39/F Location: [facility] Status: Signed Intake Vital Signs 05/12/25 16:47 Height 5 ft 3 in Intake Visit Reasons: S/P TOTAL THYROIDECTOMY 05-12 Chief Complaint: s/p total thyroidectomy - Is patient in pain?: No Allergies No Known Allergies Allergy (Verified 05/22/25 08:08) Medications ???Medication ???Instructions ???Recorded ???Confirmed ???Type duloxetine 60 mg capsule,delayed 60 mg PO DAILY 07/25/23 05/22/25 H istory release drospirenone (contraceptive) 4 mg 1 tab PO DAILY #84 tabs 01/01/25 05/22/25 Rx (28) tablet (Slynd) cholecalciferol (vitamin D3) 50 50 mcg PO DAILY 05/06/25 05/22/25 History mcg (2,000 unit) tablet (Vitamin D3) hydroxyzine pamoate 25 mg capsule 25 mg PO TID PRN PRN anxiety 04/2705/22/25 History levothyroxine 150 mcg capsule 150 mcg PO DAILY 5 weeks #35 caps 05/13/25 05/22/25 Rx Subjective Details: Patient presents following total thyroidectomy with intraoperative nerve monitoring on 05/12/2025. Since hospital discharge they have been doing well. They report no postoperative pain. They have not experienced symptoms of numbness and tingling. They have no wound concerns since removing Steri-Strips which appear to cause some local irritation. She goes on to state that she feels better than preop and that she is doing things she did not do normally previously due to the lack of energy and gives example of recently painting her bathroom. In the same way she acknowledges that she has been trying to not overdo it. She denies any swallowing difficulty. She shares that there has been a "slight change" in her voice with some slight hoarseness. They confirm regular thyroid supplementation without interruption. Objective Details: Constitutional: No acute distress, cooperative, appreciative Neck: Slight erythema along right side of patient's lower cervical incision and slight nodule along the left. No particular tenderness. Coding Level of Care Code Global Post Op Diagnoses Status post total thyroidectomy Z98.890; Z90.89 [facility] Medical History Cancer Anxiety Alcohol use High cholesterol Migraine headache Asthma Non-smoker History of stress test Thyroid nodule DVT (deep venous thrombosis) Bilateral pulmonary embolism History of miscarriage, currently Perianal abscess Surgical History History of laparoscopic cholecystectomy Family History Grandmother Breast cancer Grandfather No problems noted. 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 She is doing remarkably well postoperatively and appears to be benefiting from newfound energy levels. She is also well-healing on exam. 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 Additionally reviewed the pathology from her operation which showed only evidence of lymphocytic thyroiditis and some hyperplasia but was overall ruled "benign". It is unclear to me how she had a prior FNA biopsy given a Blackfoot 5 diagnosis and our final pathology appears clearly benign. For her part Mrs. Teixeira states she remains thankful for the course of action that was taken and the way she feels presently. Will plan to have a second follow-up visit 5 weeks postop with pre-clinic laboratories to determine if her thyroid hormone supplementation is appropriate. Plan: ??? Repeat thyroid function testing prior to second postoperative visit in clinic ??? Patient enc (more content not included)... Normal [facility] [facility] An[facility] gap in Serum or Plasma Ordered By: Gómez Casiano on 05-13-2025 Anion gap [Moles/Vol] 12 mmol/L 5-15 [facility] BUN/creatinine ratioOrdered By: Gómez Casiano on 05-13-2025 Urea nitrogen/Creatinine [Mass ratio] 10.6 mg/mg 10-20 [facility] Bilirubin, totalOrdered By: Gómez Casiano on 05-13-2025 Bilirubin [Mass/Vol] 0.73 mg/dL 0.00-1.30 [facility] Carbon dioxide, total [Moles /volume] in Central venous bloodOrdered By: Gómez Casiano on 05-13-2025 CO2 [Moles/Vol] 21.6 mmol/L 21.0-32.0 [facility] Chloride assayOrdered By: Gillian Casiano on 05-13-2025 Chloride [Moles/Vol] 106 mmol/L 98-108 [facility] Comprehensive Metabolic Prof ilon 05-13-2025 Albumin [Mass/Vol] 4.0 g/dL Normal 3.5-5.0 [facility] Comment on above: Performed By: #### L 500.4100 #### [facility] Laboratory [address] [place], [address] Albumin/Globulin [Mass ratio] 1.5 {ratio} Normal 0.9-2.4 [facility] Comment on above: Performed By: #### L 500.4100 #### [facility] Laboratory [address] [place], [address] ALK PHOS 81 U/L Normal 35-104 [facility] Comment on above: Performed By: #### L 500.4100 #### [facility] Laboratory [address] [place], [address] ALT [Catalytic activity/Vol] 63 U/L High <=34 [facility] Comment on above: Performed By: #### L 500.4100 #### [facility] Laboratory [address] [place], [address] AST [Catalytic activity/Vol] 60 U/L High <=31 [facility] Comment on above: Performed By: #### L 500.4100 #### [facility] Laboratory [address] [place], [address] Bilirubin [Mass/Vol] 0.73 mg/dL Normal 0.00-1.30 [facility] Comment on above: Performed By: #### L 500.4100 #### [facility] Laboratory [address] [place], [address] BUN/CRE 10.6 RATIO Normal 10-20 [facility] Comment on above: Performed By: #### L 500.4100 #### [facility] Laboratory [address] [place], [address] Calcium [Mass/Vol] 8.7 mg/dL Normal 7.6-11.0 [facility] Comment on above: Performed By: #### L 500.4100 #### [facility] Laboratory [address] [place], [address] Chloride [Moles/Vol] 106 mmol/L Normal 98-108 [facility] Comment on above: Performed By: #### L 500.4100 #### [facility] Laboratory [address] [place], [address] CO2 [Moles/Vol] 21.6 mmol/L Normal 21.0-32.0 [facility] Comment on above: Performed By: #### L 500.4100 #### [facility] Laboratory [address] [place], [address] Creatinine [Mass/Vol] 0.75 mg/dL Normal 0.70-1.20 [facility] Comment on above: Performed By: #### L 500.4100 #### [facility] Laboratory [address] [place], [address] ECRCL 117.01 ml/min Normal 50-250 [facility] Comment on above: Performed By: #### L 500.4100 #### [facility] Laboratory [address] [place], [address] GAP 12 Normal 5-15 [facility] Comment on above: Performed By: #### L 500.4100 #### [facility] Laboratory [address] [place], [address] GFR/1.73 sq M.predicted among non-blacks MDRD (S/P/Bld) [Vol rate/Area] 105 mL/min/{1.73_m2} Normal >60 [facility] Comment on above: Result Comment: mL/m in/1.73m2 CKD-EPI Creatinine Equation (2020) Performed By: #### L 500.4100 #### [facility] Laboratory [address] [place], [address] Globulin (S) [Mass/Vol] 2.8 g/dL Normal 2.2-4.2 [facility] Comment on above: Performed By: #### L 500.4100 #### [facility] Laboratory [address] [place], [address] Glucose [Mass/Vol] 171 mg/dL High 70-99 [facility] Comment on above: Performed By: #### L 500.4100 #### [facility] Laboratory [address] [place], [address] Potassium [Moles/Vol] 3.4 mmol/L Normal 3.3-5.1 [facility] Comment on above: Performed By: #### L 500.4100 #### [facility] Laboratory [address] [place], [address] Sodium [Moles/Vol] 140 mmol/L Normal 133-145 [facility] Comment on above: Performed By: #### L 500.4100 #### [facility] Laboratory [address] [place], [address] T PROT 6.8 g/dL Normal 5.9-8.4 [facility] Comment on above: Performed By: #### L 500.4100 #### [facility] Laboratory [address] [place], [address] Urea nitrogen [Mass/Vol] 8 mg/dL Normal 4-19 [facility] Comment on above: Performed By: #### L 500.4100 #### [facility] Laboratory [address] [place], [address] Discharge Instructionon 04-27 Discharge Instruction [facility] Medical Records Department [address] [place] [address] Instructions for Home/Discharge Instructions 05/13/25 0755 MR#: [id number] Acct: [id number] Name: HAMLET TEIXEIRA Rep #: [id number] : 1985 39 From: Gómez Casiano MD PCP: Dr. Ortega Medrano MD Status:ADM BONI Discharge Instructions DC O2, CPAP, BIPAP needs Home O2 Discharge instructions: No Dressing / Incision Discharge Activity: May Not Drive (While it remains difficult to check blind spots quickly) May shower in (days): 1 Ice area for (Minutes): 20 Lifting Restrictions: No lifting greater than 15 pounds for 2 weeks after surgery Dressing / Incision Call your doctor if your incision/area has: Continuous Slow Oozing, Sudden Increased Bleeding, Increased Pain/ Swelling, Increased Redness and Swelling at the incision site Call your doctor if you observe: Numbness or Tingling Remove Dressing in: 1 day (Please leave Steri-Strips intact until they fall off spontaneously or are taken off at your follow-up visit) Cleanse incision/area with: Soap Water Follow Up Care Please Follow Up With: Gómez Casiano MD When: 10-14 days postop Test Results: Test results from this visit will be discussed in further detail at your follow-up appointment, if applicable. Discharge Plan Admission Admit Date/Time: 05/12/25 14:52 Primary Reason for Your Visit: Thyroidectomy Attending Provider: Gómez Casiano Primary Care Provider: Ortega Mderano Discharge Orders/Prescriptions Prescriptions: New levothyroxine 150 mcg capsule 150 mcg PO DAILY 35 Days Qty: 35 0RF Continued duloxetine 60 mg capsule,delayed release(DR/EC) 60 mg PO DAILY cholecalciferol (vitamin D3) [Vitamin D3] 50 mcg (2,000 unit) tablet 50 mcg PO DAILY hydroxyzine pamoate 25 mg capsule 25 mg PO TID PRN PRN (Reason: anxiety) Slynd 4 mg (28) tablet 1 tab PO DAILY Qty: 84 3RF Referrals / Follow Up: Ortega Medrano MD [Primary Care Provider, Family Practice] Disposition Disposition (needs filled in before D/C Order can be placed): Home, Self Care 05/13/25 1132 Gómez Casiano MD CC: Dr. Ortega Medrano MD Signed Normal [facility] Glomerular filtration rate ( GFR) estimation/1.73 sq m using serum, plasma, or whole bOrdered By: Gómez Casiano on 05-13-2025 GFR/1.73 sq M.predicted among non-blacks MDRD (S/P/Bld) [Vol rate/Area] 105 mL/min/{1.73_m2} >60 [facility] Comment on above: mL/min/1.73m2 CKD-EP I Creatinine Equation (2020) Laboratory - Chemistry and C hemistry - challengeOrdered By: Gómez Casiano on 05-13-2025 AST [Catalytic activity/Vol] 60 U/L High <32 [facility] PTHINon 05-13-2025 PTH 58 pg/mL Normal 11-61 [facility] Comment on above: Performed By: #### L 509.1000 #### [facility] Laboratory [address] [place], [place], [address] Potassium measurement (mass/ volume)Ordered By: Gómez Casiano on 05-13-2025 Potassium (Unsp spec) [Mass/Vol] 3.4 mmol/L 3.3-5.1 [facility] Serum creatinine measurement (mass/volume)Ordered By: Gómez Casiano on 05-13-2025 Creatinine [Mass/Vol] 0.75 mg/dL 0.70-1.20 [facility] Serum globulin measurementOr dered By: Gómez Casiano on 05-13-2025 Globulin (S) [Mass/Vol] 2.8 g/dL 2.2-4.2 [facility] Serum glucose measurement (m ass/volume)Ordered By: Gómez Casiano on 05-13-2025 Glucose [Mass/Vol] 171 mg/dL High 70-99 [facility] Serum or plasma alanine goramn otransferase (ALT) measurementOrdered By: Gómez Casiano on 05-13-2025 ALT [Catalytic activity/Vol] 63 U/L High <35 [facility] Serum or plasma albumin harry urement (mass/volume)Ordered By: Gómez Casiano on 05-13-2025 Albumin [Mass/Vol] 4.0 g/dL 3.5-5.0 [facility] Serum or plasma albumin/glob ulin mass ratioOrdered By: Gómez Casiano on 05-13-2025 Albumin/Globulin [Mass ratio] 1.5 {ratio} 0.9-2.4 [facility] Serum or plasma alkaline domi sphatase measurementOrdered By: Gómez Casiano on 05-13-2025 ALP [Catalytic activity/Vol] 81 U/L 35-104 [facility] Serum or plasma calcium harry urement (mass/volume)Ordered By: Gómez Casiano on 05-13-2025 Calcium [Mass/Vol] 8.7 mg/dL 7.6-11.0 [facility] Serum or plasma urea nitroge n measurement (mass/volume)Ordered By: Gómez Casiano on 05-13-2025 Urea nitrogen [Mass/Vol] 8 mg/dL 4-19 [facility] Sodium levelOrdered By: Omer honeycutt Oh on 05-13-2025 Sodium [Moles/Vol] 140 mmol/L 133-145 [facility] Total proteinOrdered By: Sadiq molina Oh on 05-13-2025 Protein [Mass/Vol] 6.8 g/dL 5.9-8.4 [facility] MR/POSTOP.ANEon 05-12-2025 MR/POSTOP.ANE [facility] Medical Records Department [address] [place] [address] Anesthesia Postop Eval I 05/12/25 1508 MR#: [id number] Acct: [id number] Name: HAMLET TEIXEIRA Rep #: [id number] : 1985 39 From: Estella Henry CRNA PCP: Dr. Ortega Medrano MD Status:REG SDC Y Race: C Location: [place] [address] Anesthesia: Postop Eval I Current Vital Signs Temperature: 98 F Pulse Rate: 96 Blood Pressure: 151/100 Respiratory Rate: 18 Pulse Ox: 94 Oxygen Delivery Method: Room Air Assessment Airway patent: Yes Spontaneous unlabored respirations: Yes Mental status: Awake and Calm nausea: No Vomiting: No Anesthesia Complication: No Fluid Hydration Crystalloid volume administer (ml): 1,400 Total IV fluid infused: 1,400 Progress Note Anesthesia document: Postop Eval 1 completed: Yes 05/12/25 1510 Date Estella Dotterer LOG HOOKER Cosigner Signature: Date CC: Signed Normal [facility] MR/[id number] 05-12-2025 MR/POSTOPAN2 [facility] Medical Records Department [address] [place] [address] Anesthesia Postop Eval II 05/12/25 1709 MR#: [id number] Acct: [id number] Name: HAMLET TEIXEIRA Rep #: [id number] : 1985 39 From: Leighton Copeland MD PCP: Dr. rOtega Medrano MD Status:ADM BONI Y Race: C Location: [place] [id number] Anesthesia Postop Eval I Sum Postop Eval Completion status Anesthesia document: Postop Eval 1 completed: Yes Anesthesia Postop Eval I Summary Anesthesia Postop Eval I Summary: Anesthesia Postop Eval I: Assessment Summary Airway patent Yes 05/12/25 15:10 [email or web address] Spontaneous unlabored Yes 05/12/25 15:10 [email or web address] [email or web address] respirations Mental status Awake,Calm 05/12/25 15:10 [email or web address] [email or web address] nausea No 05/12/25 15:10 LOG [email or web address] Vomiting No 05/12/25 15:10 LOG [email or web address] Anesthesia Postop Eval I: Fluid Summary Crystalloid volume administer 1,400 05/12/25 15:10 LOG [email or web address] (ml) Colloids volume administered ( ml) Blood Product volume administered (ml) Total IV fluid infused 1,400 05/12/25 15:10 LOG [email or web address] Anesthesia Postop Eval I: Summary Notes Anesthesia Complication No 05/12/25 15:10 LOG [email or web address] Anesthesia Complication Comment: Post-operative progress note Anesthesia: Postop Eval II Evaluation Mental status: Awake and Calm Pain Level: 3 nausea: No Vomiting: No Progress Note Post-operative progress note: Patient's blood pressure is consistently elevated through the entire perioperative period. She did remain within her 20% of preop blood pressures and was discharged from PACU to the floor. Dr. Casiano was appraised of her slightly elevated blood pressures. Complications Anesthesia Complication: No 05/12/25 1721 Date Leighton Yaoigner Signature: Date CC: Signed Normal [facility] Operative Reporton 5 Operative Report [facility] Medical Records Department [address] [place] [address] Operative Report 05/12/25 1448 MR#: [id number] Acct: [id number] Name: HAMLET TEIXEIRA Rep #: [id number] : 1985 39 From: Gómez Casiano MD PCP: Dr. Ortega Medrano MD Status:ADM BONI Location: [facility] LD803-8 Procedures Endocrine CF Procedures [id number]: [address] Removal of thyroid Operative Report (Standard) Operative Information Date of Procedure: 05/12/25 Pre-Operative Diagnosis: Papillary thyroid carcinoma right thyroid lobe Post-Operative Diagnosis: Same Surgery/Procedure Performed: Total thyroidectomy with intraoperative nerve monitoring chip silo tender: Yes Classified Advertising Clerk: Rosalinda Schmitt Tasks completed by oncology physician assistant: Opening closing and Retracting Type of Anesthesia: General/Supplemental RN Documented Start/Stop Times: Operation Date: 05/12/25 11:00 Case Time Into Pre-Op 05/12/25 09:51 Out of Pre-Op 05/12/25 11:03 Anesthesia Start 05/12/25 11:07 Into Room 05/12/25 11:07 Procedure Start 05/12/25 11:44 Procedure End 05/12/25 14:53 Anesthesia End 05/12/25 15:03 Out of Room 05/12/25 15:03 Into Recovery 05/12/25 15:06 Out of Recovery 05/12/25 16:41 Procedure Start Time: 11:44 Procedure Stop Time: 14:53 Select all DRAINS/GRAFTS/IMPLANTS that apply: None Estimated Blood Loss: 25 Specimen collected: Yes Description of specimen(s) removed: Total thyroid with stitch marking superior pole Description of surgery: After appropriate identification in the preoperative holding area, the patient was brought to the operating room where she was positioned supine with arms tucked taking care to pad the ulnar nerve bilaterally. The patient was positioned with a shoulder roll so that her head was in extension but supported. Induction of general endotracheal anesthetic was begun and a NIMS tube was placed under glidescope view to confirm coaptation with the vocal cords anteriorly. Tube was then secured to keep apposition of the electrodes with the cords. The Nims electrodes were placed and connected to the monitor. We had appropriate resistance showing on the monitor and tapping at the level of the cricoid produce a graphical representation of the impulse on the monitor. Patient's neck was then prepped and draped in usual sterile fashion and a formal timeout was conducted with those present. The lowest skin fold to the sternal notch was selected for incision site (this resided approximately 2 fingerbreadths cephalad to the notch). Local anesthetic was instilled and a incision was extended for 2.5 cm on either side of midline. Electrocautery was used to deepen this incision through the level of the platysma. Subplatysmal flaps were raised with the use of electrocautery and blunt dissection. The strap muscles were then divided along the medial raphe bringing us down to the level of the thyroid. Capsular attachments to the thyroid were divided with the use of LigaSure or bluntly swept away with a peanut sponge. Retractors were placed providing visualization of the superior pole of the right lobe of the thyroid. The vessels of the superior pole were sequentially divided with the use of the LigaSure device. We then moved inferiorly and divided those polar vessels with LigaSure. The inferior parathyroid gland was grossly visualized and preserved on its vascular pedicle with this division. With the poles freed, the thyroid was mobilized medially by bluntly the remaining strap muscle fibers from the thyroid capsule and using LigaSure to divide the middle thyroid vein. Blunt dissection parallel to the presumed course of the recurrent laryngeal nerve was used to expose the tracheoesophageal groove. Here I encountered a positive signal for the right recurrent laryngeal nerve and was shortly thereafter able to visualize the nerve. The nerve positively identified, I began carefully dissecting off the remaining tracheal attachments around the area of the nerve as well as completely freeing the poles to improve overall mobility. In the area of the ligament of Reddy I secured the stay side tracheal attachments with silk ligatures to try to facilitate hemostasis, tested the nerve for intact function, and then applied bipolar energy to the tissue before its division. Once the right thyroid lobe was elevated at least 2 to 3 mm anterior to the insertion point, electrocautery was used to remove the isthmus from the anterior surface of the trachea. Superiorly I identified a pyramidal lobe of the thyroid that was taken en bloc with our specimen using electrocautery. Before moving to the left side I inspected the pretracheal region of the surgical cavity and also palpated for any signs of abnormal level 6 lymph nodes. No concerning adenopathy was appreciated but I did note the presence of a high riding innominate ar (more content not included)... Normal [facility] PTHINon 05-12-2025 PTH 76 pg/mL High 11-61 [facility] Comment on above: Performed By: #### L 509.1000 #### [facility] Laboratory [address] [place], [place], [address] ,Urineon 05-12-2025 Beta HCG ( test) Ql (U) Normal [facility] Comment on above: Result Comment: Canc elled via OM: patient refused Performed By: #### L 500.4100 #### [facility] Laboratory [address] [place], [place], [address] INTERNAL QC OK? Normal [facility] Comment on above: Result Comment: Canc elled via OM: patient refused Performed By: #### L 500.4100 #### [facility] Laboratory [address] [place], [place], [address] RECORD KIT LOT# Normal [facility] Comment on above: Result Comment: Canc elled via OM: patient refused Performed By: #### L 500.4100 #### [facility] Laboratory [address] [place], [place], [address] Surgery Specimen Level Von 0 05-12-2025 Surgery Specimen Level V -------- Patient Age/Sex Location Account Attending Physician -------- HAMLET TEIXEIRA 39/F MS3 [id number] Dr. Gómez Casiano MD -------- Specimen: [id number] Received: 05/12/25 Status: RYAN Jainana laura Num: [id number] Spec Type: THYROID Subm Dr: Dr. Gómez Casiano MD HEADER OPERATION: Total thyroidectomy with intraoperative nerve monitoring PRE-OP DIAGNOSIS: Multiple thyroid nodules TISSUE SUBMITTED: A- Total thyroid *stitch lutz right superior pole* -------- MICROSCOPIC DIAGNOSIS A. Thyroid, total thyroidectomy: - Multinodular goiter with areas of hyperplasia and arising in the background of slight lymphocytic thyroiditis, benign MICROSCOPIC DESCRIPTION Slides are reviewed. GROSS DESCRIPTION A. Received in formalin labeled with the patient's name and date of . Designated as " total thyroid" is a 13.9 g thyroidectomy with a suture designated as "right superior pole" and consisting of: Left lobe: 3.0 x 1.8 x 1.3 cmIsthmus/pyramidal lobe: 2.7 x 1.8 x 0.6 cmRight lobe: 4.1 x 3.0 x 1.4 cm The anterior capsular surfaces are intact and somewhat shaggy while the posterior capsule is cauterized. The specimen is inked as follows: Left, anterior: GreenIsthmus/pyramidal lobe, anterior: OrangeRight, anterior: BluePosterior: Black The specimen is serially sectioned from superior to inferior revealing the following 4 nodules as follows: Nodule #1, 2.7 x 1.8 x 1.7 cm: Right superior to mid, sherman-pink, focally congested and well-circumscribed with a possible capsule; it abuts the overlying ink and measures 2.7 x 1.8 x 1.7 cm.Nodule #2, 1.1 x 0.9 x 0.8 cm: Right mid to inferior, sherman-pink and well-circumscribed, located 0.3 cm from nodule #1 and abuts the overlying ink. A definitive capsule is not identified. Nodule #3, 0.3 x 0.3 x 0.2 cm: Right inferior, sherman-pink and located 0.1 cm from nodule #2 and 0.5 cm from nodule #1, and abuts the overlying ink. A definitive capsule is not identified. Nodule #4, 0.7 x 0.6 x 0.5 cm: Left mid to inferior and abuts the overlying ink. A definitive capsule is not identified. [employer]ing [employer] Operator sections are submitted, to include the entirety of the nodules (approximately 90% of the specimen) as follows: A1-A4: Nodule #1A5-A7: Nodules #1 and #2A8: Nodule #3 to nodule #2, perpendicularA9: Nodule #3, perpendicular and isthmus/pyramidal [id number]: Nodule #4 [place] 05/13/2025 [facility]:[id number] -------- Patient Age/Sex Location Account Attending Physician -------- HAMLET TEIXEIRA 39/F MS3 [id number] Dr. Gómez Casiano MD -------- ADDENDUM Addendum 1 Entered: 06/11/25 Expert consultation at [facility] and correlation with the thyroid FNA performed at [facility] ([facility] [id number]) is PENDING per Dr Casiano's request. A separate report from [facility] will follow. Addendum Signed (signature on file) Dr. Keiry Mckeon MD 06/11/25900 -------- -------- Patient Age/Sex Location Account Attending Physician -------- HAMLET TEIXEIRA 39/F MS3 [id number] Dr. Gómez Casiano MD -------- Signed (signature on file) Dr. Gregorio Riggins MD 05/18/25 1331 -------- Normal [facility] Comment on above: Performed By: #### P SUV #### [facility] Laboratory [address] [place], [address] Head/Neck Soft Tissueon - Head/Neck Soft Tissue [facility] Imaging Services [address] [place] [address] Head/Neck Soft Tissue MR#: [id number] Acct: [id number] Name: HAMLET TEIXEIRA Rep #: [id number] : 1985 F 39 From: Ian wang MD PCP: Dr. Ortega Medrano MD Status: [facility] Study: Head/Neck Soft Tissue Date of Exam: 04/23/25 Exam# [id number] Ordering Dr: Gómez Casiano MD ADDENDUM by Dr. Ian Cox MD on 04/28/25 at 1320 The lymph node as a normal appearing fatty hilum and good cortical thickness. This suggests benignity. Reading Location: [facility] 04/28/25 1321 Date cc: Dr. Ortega Medrano MD; Dr. Gómez Casiano MD * Signed PROCEDURE: HEAD/NECK SOFT TISSUE 04/23/2025 REASON FOR EXAM: LYMPH NODE MAPPING TECHNIQUE: HEAD/NECK SOFT TISSUE COMPARISON: None FINDINGS: Lymph node mapping was performed. The largest lymph node is in the right side of the neck in zone 2. This measures 3.3 cm x 1.9 cm x 0.6 cm. US/Head/Neck Soft Tissue IMPRESSION: 3.3 cm x 1.9 cm x 0.6 cm lymph node in zone 2 on the right side of the neck. Reading Location: [facility] CC: Dr. Ortega Medrano MD; Dr. Gómez Casiano MD Supervisor [facility]: Signed Normal [facility] Surgery Visit Reporton 04-17 Surgery Visit Report [facility] [address] [place] [address]. [address] [place] [address] OFFICE VISIT Date of Service: 04/17/25 MR#: [id number] Acct: [id number] Name: HAMLET TEIXEIRA Rep #: [id number] : 1985 Provider: Dr. 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 She underwent biopsy of a right superior and right inferior nodule with Blackfoot 5 and 3 ratings, respectively. The latter nodule then underwent Afirma testing with a "benign" diagnosis They do not experience difficulty with swallowing. They do not complain of a new cough. They do not appreciate new voice changes. They do have a history of snoring/sleep apnea. Additionally, their weight has been steadily increasing and they report they are at their heaviest of all time. There also is a history of significant recent fatigue. Mrs. Teixeira declares that she awakens feeling unrefreshed and [...] problems, arth (more content not included)... Normal [facility] THYROID FNA ANALYSISo n 03-16-2025 AFIRMA Normal [facility] Comment on above: Order Comment: Speci men Type: SPECIMEN OBTAINED BY ASPIRATION Ordering Facility: [facility] Address: [address] [place] [address] Result Comment: View results in Scanned Documents link when available. Performed By: #### A EVETTE #### [facility] CLIA [id number] [address] [place] [address] OF [facility] CNOVon 03-16-2025 CNOV Office Visit (GENSWS ) HAMLET TEIXEIRA ([id number]) 1985 [facility] Date Time Provider Department 03/16/25 1:30 PM BALTAZAR COURTNEYBisi During your visit today, we recorded the [...] to your office visit today with the [facility]. Instructions After THYROID FINE [...] you have any questions or concerns @ [phone]. Please make an appointment to follow up in one week with your physician and [facility] If you note any additional difficulties, questions, or concerns, you should contact our office immediately @ [phone] and ask to be transferred to the [...] Modules accepted: Orders Referring Provider: BALTAZAR COURTNEY [[id number]] Allergies As of Date: 03/16/2025 (No Known Allergies) Date Reviewed: 03/09/2025 Reviewed by: Yelitza Whitlock LPN - Fully Assessed Primary Visit Diagnosis:Multinodular goiter [E04.2] Order(s):US THYROID BIOPSY RIGHT (POC) SURG USE ONLY [0916676] Order #: [id number]. #:[id number]: [id number] CYTOLOGY NON-DIRECTOR OF EXTENSION WORK [EQS6040] Order #: [id number]. #:[id number] CYTOLOGY NON-DIRECTOR OF EXTENSION WORK [[id number]] Order #: [id number]. #:[id number] Prescriptions as of 03/17/2025 - FLUoxetine (PROZAC) [...] instructions fr (more content not included)... Normal [facility] CYTOLOGY NON-GYNon ADDENDUM 1: Normal [facility] Comment on above: Order Comment: Speci men Type: SPECIMEN OBTAINED BY ASPIRATION Ordering Facility: [facility] Address: [address] [place] [address] Result Comment: Tawny cted slides from part B has been reviewed with Dr. Rell Garcias who concurs. Addendum electronically signed by Carlito Palma MD, PhD on 05/27/2025 at 1434 EDT Performed By: #### C YTONON #### [facility] CLIA [id number] [address] [place] [address] [place] AP DISCLAIMER Normal [facility] Comment on above: Order Comment: Speci men Type: SPECIMEN OBTAINED BY ASPIRATION Ordering Facility: [facility] Address: [address] [place] [address] Result Comment: Darrin sarah Developed Test (LDT) Disclaimer: Performance characteristics of immunohistochemical, immunofluorescent, and chromogenic in-situ hybridization tests have been determined by the performing laboratory within [facility]'s [facility] Pathology and Laboratory Medicine Department ([facility], [facility], [facility], [facility], [facility], [facility], or [facility]) in a manner consistent with CLIA requirements. One or more of these tests may not have been cleared or approved by the FDA. RT-PLM is regulated under CLIA as qualified to perform high-complexity testing. These tests are used for clinical purposes. These should not be regarded as investigational or for research. Positive and negative controls stain appropriately. Performed By: #### C YTONON #### [facility] CLIA [id number] [address] [place] [address] [place] CASE REPORT Normal [facility] Comment on above: Order Comment: Speci men Type: SPECIMEN OBTAINED BY ASPIRATION Ordering Facility: [facility] Address: [address] [place] [address] Result Comment: [facility] Cytology Report Case: [id number] Authorizing Provider: Baltazar Courtney MD Collected: 03/16/2025 01:51 PM Ordering Location: General Surgery Received: 03/17/2025 07:18 AM Pathologist: Carlito Palma MD, PhD Specimens: A) - Thyroid, Right, Lobe, right lower lobe B) - Thyroid, Right, Lobe, right upper middle Performed By: #### C YTONON #### [facility] CLIA [id number] [address] [place] [address] [place] CLINICAL HISTORY thyroid nodules Normal [facility] Comment on above: Order Comment: Speci men Type: SPECIMEN OBTAINED BY ASPIRATION Ordering Facility: [facility] Address: [address] [place] [address] Result Comment: Afirma received for A, B Performed By: #### C YTONON #### [facility] CLIA [id number] [address] [place] [address] [place] FINAL DIAGNOSIS Normal [facility] Comment on above: Order Comment: Speci men Type: SPECIMEN OBTAINED BY ASPIRATION Ordering Facility: [facility] Address: [address] [place] [address] Result Comment: A - Thyroid, Right, Lobe, FNA - right lower lobe Atypia of undetermined significance. (See comment) B - Thyroid, Right, Lobe, FNA - right upper middle Suspicious for papillary thyroid carcinoma. at 1256 EDT Performed By: #### C YTONON #### [facility] CLIA [id number] [address] [place] [address] [place] FINAL PERFORMING LAB Normal [facility] Comment on above: Order Comment: Speci men Type: SPECIMEN OBTAINED BY ASPIRATION Ordering Facility: [facility] Address: [address] [place] [address] Result Comment: Tech nical component, chopped strand operator screening performed at: [facility], [address] [place] [address] [place] [address] CLIA: [id number] Diagnostic interpretation performed at: [facility], [address] [place], [place] [address] CLIA# [id number] Fruit Worker: Rashaun Tavera MD Performed By: #### C YTONON #### [facility] CLIA [id number] [address] [place], [place] [address] [place] GROSS DESCRIPTION Normal [facility] Comment on above: Order Comment: Speci men Type: SPECIMEN OBTAINED BY ASPIRATION Ordering Facility: [facility] Address: [address] [place] [address] Result Comment: A. T hyroid, Right, Lobe 30 cc clear colorless CytoLyt . ThinPrep prepared and 8 smears. Afirma received B. Thyroid, Right, Lobe 30 cc clear light pink CytoLyt . ThinPrep prepared and 12 smears. Afirma received Performed By: #### C YTONON #### [facility] CLIA [id number] [address] [place] [address] [place] ADDENDUM 1: Normal [facility] Comment on above: Order Comment: Speci men Type: SPECIMEN OBTAINED BY ASPIRATION Ordering Facility: [facility] Address: [address] [place] [address] Result Comment: Tawny cted slides from part B has been reviewed with Dr. Rell Garcias who concurs. Addendum electronically signed by Carlito Palma MD, PhD on 05/27/2025 at 1434 EDT Performed By: #### C YTONON #### [facility] CLIA [id number] [address] [place] [address] [place] AP DISCLAIMER Normal [facility] Comment on above: Order Comment: Speci men Type: SPECIMEN OBTAINED BY ASPIRATION Ordering Facility: [facility] Address: [address] [place] [address] Result Comment: Darrin sarah Developed Test (LDT) Disclaimer: Performance characteristics of immunohistochemical, immunofluorescent, and chromogenic in-situ hybridization tests have been determined by the performing laboratory within [facility]'s [facility] Pathology and Laboratory Medicine Department ([facility], [facility], [facility], [facility], [facility], [facility], or [facility]) in a manner consistent with CLIA requirements. One or more of these tests may not have been cleared or approved by the FDA. RT-PLM is regulated under CLIA as qualified to perform high-complexity testing. These tests are used for clinical purposes. These should not be regarded as investigational or for research. Positive and negative controls stain appropriately. Performed By: #### C YTONON #### [facility] CLIA [id number] [address] [place] [address] [place] CASE REPORT Normal [facility] Comment on above: Order Comment: Speci men Type: SPECIMEN OBTAINED BY ASPIRATION Ordering Facility: [facility] Address: [address] [place] [address] Result Comment: [facility] Cytology Report Case: [id number] Authorizing Provider: Baltazar Courtney MD Collected: 03/16/2025 01:51 PM Ordering Location: General Surgery Received: 03/17/2025 07:18 AM Pathologist: Carlito Palma MD, PhD Specimens: A) - Thyroid, Right, Lobe, right lower lobe B) - Thyroid, Right, Lobe, right upper middle Performed By: #### C YTONON #### [facility] CLIA [id number] [address] [place] [address] OF [facility] CLINICAL HISTORY thyroid nodules Normal [facility] Comment on above: Order Comment: Speci men Type: SPECIMEN OBTAINED BY ASPIRATION Ordering Facility: [facility] Address: [address] [place] [address] Result Comment: Afirma received for A, B Performed By: #### C YTONON #### [facility] CLIA [id number] [address] [place] [address] OF [facility] FINAL DIAGNOSIS Normal [facility] Comment on above: Order Comment: Speci men Type: SPECIMEN OBTAINED BY ASPIRATION Ordering Facility: [facility] Address: [address] [place] [address] Result Comment: A - Thyroid, Right, Lobe, FNA - right lower lobe Atypia of undetermined significance. (See comment) B - Thyroid, Right, Lobe, FNA - right upper middle Suspicious for papillary thyroid carcinoma. at 1256 EDT Performed By: #### C YTONON #### [facility] CLIA [id number] [address] [place] [address] [place] FINAL PERFORMING LAB Normal [facility] Comment on above: Order Comment: Speci men Type: SPECIMEN OBTAINED BY ASPIRATION Ordering Facility: [facility] Address: [address] [place] [address] Result Comment: Tech nical component, chopped strand operator screening performed at: [facility], [address] [place] [address] CLIA: [id number] Diagnostic interpretation performed at: [facility], [address] [place] [address] CLIA# [id number] Fruit Worker: Rashaun Tavera MD Performed By: #### C CONCHIS #### [facility] CLIA [id number] [address] [place] [address] [place] GROSS DESCRIPTION Normal [facility] Comment on above: Order Comment: Speci men Type: SPECIMEN OBTAINED BY ASPIRATION Ordering Facility: [facility] Address: [address] [place] [address] Result Comment: A. T hyroid, Right, Lobe 30 cc clear colorless CytoLyt . ThinPrep prepared and 8 smears. Afirma received B. Thyroid, Right, Lobe 30 cc clear light pink CytoLyt . ThinPrep prepared and 12 smears. Afirma received Performed By: #### C YTSVETLANAN #### [facility] CLIA [id number] [address] [place] [address] [place] US THYROID BIOPSY RIGHT (POC ) SURG USE ONLYon 03-16-2025 [facility] CNOVon 03-09-2025 CNOV Office Visit (GENSWS ) HAMLET TEIXEIRA ([id number]) 1985 F [facility] Date Time Provider Department 03/09/25 2:45 PM BALTAZAR COURTNEY During your visit today, [...] Alcohol use: (more content not included)... Normal [facility] Thyroidon 02-12-2025 Thyroid [facility] [address] [place] [address] Thyroid MR#: [id number] Acct: [id number] Name: HAMLET TEIXEIRA Rep #: [id number] : 1985 F 39 From: [place]o Rock DO PCP: Dr. Ortega Medrano MD Status: REG CLI Study: Thyroid Date of Exam: 02/12/25 Exam# [id number] Ordering Dr: Ortega Medrano MD PROCEDURE: THYROID [...] no more than 2 nodules. Reading Location: [facility] CC: Dr. Ortega Medrano MD Supervisor [facility]: Signed Normal [facility] Thyroglobulin w/Anti-TG ABon 02-11-2025 Anti-TG AB < 1.0 Normal 0.0-0.9 [facility] Comment on above: Order Comment: Order Date: 02/05/25 Order Info: [id number] - CMP Order Info: [id number] - LIPID Order Info: [id number] - TSH Order Info: [id number] - T4F Result Comment: Thyr oglobulin Antibody measured by Areli Ensign Methodology It should be noted that the presence of thyroglobulin antibodies may not be pathogenic nor diagnostic, especially at very low levels. The assay jewelry sales coordinator has found that four percent of individuals without evidence of thyroid disease or autoimmunity will have positive TgAb levels up to 4 IU/mL. Performed By: #### L 500.4100 #### [facility] Laboratory [facility] [address] [place], [place], [address] THYROGLOB QUANT 113.2 ng/mL High 1.5-38.5 [facility] Comment on above: Order Comment: Order Date: 02/05/25 Order Info: [id number] - CMP Order Info: [id number] - LIPID Order Info: [id number] - TSH Order Info: [id number] - T4F Result Comment: Acco rding to the National [...] is 0.1 ng/mL Thyroglobulin measured by Areli Ensign Immunometric Assay Performed By: #### L 500.4100 #### [facility] [address] [place], [place], [address] Thyroid Peroxidase ABon 01-25 THYR PEROX AB < 9 Normal 0-34 [facility] Comment on above: Order Comment: Order Date: 02/05/25 Order Info: [id number] - CMP Order Info: [id number] - LIPID Order Info: [id number] - TSH Order Info: [id number] - T4F Result Comment: Perf ormed at: - [facility] [address] [id number] Engineering Administrator: Kartik Cano MD, Phone: [phone] Performed at: - [facility] [address] [id number] Engineering Administrator: Rodrigo Edmondson PhD, Phone: [phone] Performed By: #### L 500.4107 #### [facility] [address] [place], [place], [address] Thyroid Stim Immunoglobon THY STIM IMMUNO <0.10 Normal 0.00-0.55 [facility] Comment on above: Order Comment: Order Date: 02/05/25Order Info: [id number] - TSIMM Performed By: #### L 509.1000 #### [facility] [address] [place], [place], [address] Absolute lymphocyte countOrd ered By: Ortega Medrano on 02-05-2025 Lymphocytes Auto (Unsp spec) [#/Vol] 3.19 10*3/uL 0.83-4.51 [facility] Absolute neutrophil countOrd ered By: Ortega Medrano on 02-05-2025 Neutrophils (Bld) [#/Vol] 7.0 10*3/uL 2.0-7.7 [facility] Anion gap in Serum or Plasma Ordered By: Ortega Medrano on 02-05-2025 Anion gap [Moles/Vol] 12 mmol/L 5-15 [facility] Automated lymphocyte count a s percentage of total leukocytesOrdered By: Ortega Medrano on 02-05-2025 Lymphocytes/100 WBC Auto (Unsp spec) 29.0 % - [facility] BUN/creatinine ratioOrdered By: Ortega Medrano on 02-05-2025 Urea nitrogen/Creatinine [Mass ratio] 9.1 mg/mg Low 10- [facility] Basophil percentageOrdered B y: Ortega Medrano on 02-05-2025 Basophils/100 WBC (Bld) 0.8 % 0-1 [facility] Bilirubin, totalOrdered By: Ortega Medrano on 02-05-2025 Bilirubin [Mass/Vol] 0.31 mg/dL 0.00-1.30 [facility] CBC W/Diff, Automatedon 01-25 Absolute Lymph 3.19 X10 3/uL Normal 0.83-4.51 [facility] Comment on above: Order Comment: Ramirez tripathi Comment: [id number] Specimen Comment: No. of containers..01 ThinPrep Vial Performed By: #### L 7400.0280 #### [facility] [address] [place], [address] Absolute Neut 7.0 X10 3/uL Normal 2.0-7.7 [facility] Comment on above: Order Comment: Ramirez tripathi Comment: [id number] Specimen Comment: No. of containers..01 ThinPrep Vial Performed By: #### L 7400.0280 #### [facility] [address] [place], [address] Basophils/100 WBC (Bld) 0.8 % Normal 0-1 [facility] Comment on above: Order Comment: Specjaylen tripathi Comment: [id number] Specimen Comment: No. of containers..01 ThinPrep Vial Performed By: #### L 7400.0280 #### [facility] [address] [place], [address] Eosinophils/100 WBC (Bld) 0.8 % Normal 0-5 [facility] Comment on above: Order Comment: Speci men Comment: [id number] Specimen Comment: No. of containers..01 ThinPrep Vial Performed By: #### L 7400.0280 #### [facility] [address] [place], [address] Erythrocyte distribution width (RBC) [Ratio] 11.9 % Normal 11.6-14.6 [facility] Comment on above: Order Comment: Speci men Comment: [id number] Specimen Comment: No. of containers..01 ThinPrep Vial Performed By: #### L 7400.0280 #### [facility] [address] [place], [address] Hematocrit (Bld) [Volume fraction] 39.8 % Normal 37-47 [facility] Comment on above: Order Comment: Gisellei men Comment: [id number] Specimen Comment: No. of containers..01 ThinPrep Vial Performed By: #### L 7400.0280 #### [facility] [address] [place], [address] Hemoglobin (Bld) [Mass/Vol] 13.0 g/dL Normal 12.0-15.0 [facility] Comment on above: Order Comment: Speci men Comment: [id number] Specimen Comment: No. of containers..01 ThinPrep Vial Performed By: #### L 7400.0280 #### [facility] [address] [place], [address] IG% 0.400 Normal 0.0-0.9 [facility] Comment on above: Order Comment: Speci men Comment: [id number] Specimen Comment: No. of containers..01 ThinPrep Vial Result Comment: IG% - Immature Granulocytes (promyelocytes, myelocytes and metamyelocytes) > 1% indicates that a LEFT SHIFT is Present. Performed By: #### L 7400.0280 #### [facility] [address] [place], [address] Lymphocytes/100 WBC (Bld) 29.0 % Normal 19-41 [facility] Comment on above: Order Comment: Gisellei men Comment: [id number] Specimen Comment: No. of containers..01 ThinPrep Vial Performed By: #### L 7400.0280 #### [facility] [address] [place], [address] MCH (RBC) [Entitic mass] 30.2 pg Normal 27.0-32.0 [facility] Comment on above: Order Comment: [facility] Comment: [id number] Specimen Comment: No. of containers..01 ThinPrep Vial Performed By: #### L 7400.0280 #### [facility] [address] [place], [address] MCHC (RBC) [Mass/Vol] 32.7 g/dL Normal 32-36 [facility] Comment on above: Order Comment: Ramirez tripathi Comment: [id number] Specimen Comment: No. of containers..01 ThinPrep Vial Performed By: #### L 7400.0280 #### [facility] [address] [place], [address] MCV (RBC) [Entitic vol] 92.3 fL Normal 81-99 [facility] Comment on above: Order Comment: [facility]: [id number] Specimen Comment: No. of containers..01 ThinPrep Vial Performed By: #### L 7400.0280 #### [facility] [address] [place], [address] Monocytes/100 WBC (Bld) 5.7 % Normal 0-10 [facility] Comment on above: Order Comment: Speci men Comment: [id number] Specimen Comment: No. of containers..01 ThinPrep Vial Performed By: #### L 7400.0280 #### [facility] [address] [place], [address] Neutrophils/100 WBC (Bld) 63.3 % Normal 47-70 [facility] Comment on above: Order Comment: Speci men Comment: [id number] Specimen Comment: No. of containers..01 ThinPrep Vial Performed By: #### L 7400.0280 #### [facility] [address] [place], [address] Nucleated RBC (Bld) [#/Vol] 0 10*3/uL Normal 0-5 [facility] Comment on above: Order Comment: Speci men Comment: [id number] Specimen Comment: No. of containers..01 ThinPrep Vial Performed By: #### L 7400.0280 #### [facility] [address] [place], [address] Platelet mean volume (Bld) [Entitic vol] 9.2 fL Normal 6.2-12.0 [facility] Comment on above: Order Comment: Speci men Comment: [id number] Specimen Comment: No. of containers..01 ThinPrep Vial Performed By: #### L 7400.0280 #### [facility] [address] [place], [address] Platelets (Bld) [#/Vol] 382 10*3/uL Normal 150-450 [facility] Comment on above: Order Comment: Speci men Comment: [id number] Specimen Comment: No. of containers..01 ThinPrep Vial Performed By: #### L 7400.0280 #### [facility] [address] [place], [place], [id number] (189) RBC (Bld) [#/Vol] 4.31 10*6/uL Normal 4.2-5.4 [facility] Comment on above: Order Comment: Speci men Comment: [id number] Specimen Comment: No. of containers..01 ThinPrep Vial Performed By: #### L 7400.0280 #### [facility] [address] [place], [place], [id number] (491) RDW SD 40.4 fl Normal 35.1-43.9 [facility] Comment on above: Order Comment: Speci men Comment: [id number] Specimen Comment: No. of containers..01 ThinPrep Vial Performed By: #### L 7400.0280 #### [facility] [address] [address] [place], [place], [id number] (840) WBC (Bld) [#/Vol] 11.0 10*3/uL Normal 4.4-11.0 [facility] Comment on above: Order Comment: Speci men Comment: [id number] Specimen Comment: No. of containers..01 ThinPrep Vial Performed By: #### L 7400.0280 #### [facility] [address] [place], [place], [address] Calculated very low density lipoprotein (VLDL) cholesterol measurementOrdered By: Ortega Medrano on 02-05-2025 Calculated very low density lipoprotein (VLDL) cholesterol measurement 59 mg/dL High 5-40 [facility] Carbon dioxide, total [Moles /volume] in Central venous bloodOrdered By: Ortega Medrano on 02-05-2025 CO2 [Moles/Vol] 21.7 mmol/L 21.0-32.0 [facility] Chloride assayOrdered By: Lidia Medrano on 02-05-2025 Chloride [Moles/Vol] 105 mmol/L 98-108 [facility] Comprehensive Metabolic Prof ilon 02-05-2025 Albumin [Mass/Vol] 4.2 g/dL Normal 3.5-5.0 [facility] Comment on above: Order Comment: Order Date: 02/05/25 Order Info: [id number] - CMP Order Info: [id number] - LIPID Order Info: [id number] - TSH Order Info: 3024-7 - T4F Performed By: #### L 500.4100 #### [facility] [address] [place], [address] Albumin/Globulin [Mass ratio] 1.4 {ratio} Normal 0.9-2.4 [facility] Comment on above: Order Comment: Order Date: 02/05/25 Order Info: 86-1 - CMP Order Info: [id number] - LIPID Order Info: [id number] - TSH Order Info: 3024-7 - T4F Performed By: #### L 500.4100 #### [facility] [address] [place], [address] ALK PHOS 62 U/L Normal 35-104 [facility] Comment on above: Order Comment: Order Date: 02/05/25 Order Info: 86-1 - CMP Order Info: [id number] - LIPID Order Info: [id number] - TSH Order Info: 3024-7 - T4F Performed By: #### L 500.4100 #### [facility] [address] [place], [address] ALT [Catalytic activity/Vol] 12 U/L Normal <=34 [facility] Comment on above: Order Comment: Order Date: 02/05/25 Order Info: [id number] - CMP Order Info: [id number] - LIPID Order Info: [id number] - TSH Order Info: 3024-7 - T4F Performed By: #### L 500.4100 #### [facility] [address] [place], [address] AST [Catalytic activity/Vol] 16 U/L Normal <=31 [facility] Comment on above: Order Comment: Order Date: 02/05/25 Order Info: [id number] - CMP Order Info: [id number] - LIPID Order Info: [id number] - TSH Order Info: 3024-7 - T4F Performed By: #### L 500.4100 #### [facility] [address] [place], [address] Bilirubin [Mass/Vol] 0.31 mg/dL Normal 0.00-1.30 [facility] Comment on above: Order Comment: Order Date: 02/05/25 Order Info: [id number] - CMP Order Info: [id number] - LIPID Order Info: [id number] - TSH Order Info: 3024-7 - T4F Performed By: #### L 500.4100 #### [facility] [address] [place], [address] BUN/CRE 9.1 RATIO Low 10-20 [facility] Comment on above: Order Comment: Order Date: 02/05/25 Order Info: [id number] - CMP Order Info: [id number] - LIPID Order Info: [id number] - TSH Order Info: 3024-7 - T4F Performed By: #### L 500.4100 #### [facility] [address] [place], [address] Calcium [Mass/Vol] 9.6 mg/dL Normal 7.6-11.0 [facility] Comment on above: Order Comment: Order Date: 02/05/25 Order Info: [id number] - CMP Order Info: [id number] - LIPID Order Info: [id number] - TSH Order Info: 3024-7 - T4F Performed By: #### L 500.4100 #### [facility] [address] [place], [address] Chloride [Moles/Vol] 105 mmol/L Normal 98-108 [facility] Comment on above: Order Comment: Order Date: 02/05/25 Order Info: [id number] - CMP Order Info: [id number] - LIPID Order Info: [id number] - TSH Order Info: 3024-7 - T4F Performed By: #### L 500.4100 #### [facility] [address] [place], [place], [address] CO2 [Moles/Vol] 21.7 mmol/L Normal 21.0-32.0 [facility] Comment on above: Order Comment: Order Date: 02/05/25 Order Info: 86-1 - CMP Order Info: [id number] - LIPID Order Info: [id number] - TSH Order Info: 3024-7 - T4F Performed By: #### L 500.4100 #### [facility] [address] [place], [place], [address] Creatinine [Mass/Vol] 0.82 mg/dL Normal 0.70-1.20 [facility] Comment on above: Order Comment: Order Date: 02/05/25 Order Info: 86-1 - CMP Order Info: [id number] - LIPID Order Info: 3 - TSH Order Info: 3024-7 - T4F Performed By: #### L 500.4100 #### [facility] [address] [place], [place], [address] GAP 12 Normal 5-15 [facility] Comment on above: Order Comment: Order Date: 02/05/25 Order Info: 785-1 - CMP Order Info: [id number] - LIPID Order Info: 3 - TSH Order Info: 3024-7 - T4F Performed By: #### L 500.4100 #### [facility] [address] [place], [place], [address] GFR/1.73 sq M.predicted among non-blacks MDRD (S/P/Bld) [Vol rate/Area] 94 mL/min/{1.73_m2} Normal >60 [facility] Comment on above: Order Comment: Order Date: 02/05/25 Order Info: [id number] - CMP Order Info: [id number] - LIPID Order Info: [id number] - TSH Order Info: 3024-7 - T4F Result Comment: mL/m in/1.73m2 CKD-EPI Creatinine Equation (2020) Performed By: #### L 500.4100 #### [facility] [address] [place], [place], [address] Globulin (S) [Mass/Vol] 2.9 g/dL Normal 2.2-4.2 [facility] Comment on above: Order Comment: Order Date: 02/05/25 Order Info: 86-1 - CMP Order Info: [id number] - LIPID Order Info: [id number] - TSH Order Info: 3024-7 - T4F Performed By: #### L 500.4100 #### [facility] [address] [place], [address] Glucose [Mass/Vol] 93 mg/dL Normal 70-99 [facility] Comment on above: Order Comment: Order Date: 02/05/25 Order Info: 86-1 - CMP Order Info: [id number] - LIPID Order Info: [id number] - TSH Order Info: 3024-7 - T4F Performed By: #### L 500.4100 #### [facility] [address] [place], [address] Potassium [Moles/Vol] 4.1 mmol/L Normal 3.3-5.1 [facility] Comment on above: Order Comment: Order Date: 02/05/25 Order Info: 86-1 - CMP Order Info: [id number] - LIPID Order Info: [id number] - TSH Order Info: 3024-7 - T4F Performed By: #### L 500.4100 #### [facility] [address] [place], [address] Sodium [Moles/Vol] 138 mmol/L Normal 133-145 [facility] Comment on above: Order Comment: Order Date: 02/05/25 Order Info: [id number] - CMP Order Info: [id number] - LIPID Order Info: [id number] - TSH Order Info: 3024-7 - T4F Performed By: #### L 500.4100 #### [facility] [address] [place], [place], [address] T PROT 7.2 g/dL Normal 5.9-8.4 [facility] Comment on above: Order Comment: Order Date: 02/05/25 Order Info: [id number] - CMP Order Info: [id number] - LIPID Order Info: [id number] - TSH Order Info: 302-7 - T4F Performed By: #### L 500.4100 #### [facility] [address] [place], [place], [address] Urea nitrogen [Mass/Vol] 7 mg/dL Normal 4-19 [facility] Comment on above: Order Comment: Order Date: 02/05/25 Order Info: [id number] - CMP Order Info: [id number] - LIPID Order Info: [id number] - TSH Order Info: 302-7 - T4F Performed By: #### L 500.4100 #### [facility] [address] [place], [place], [address] Eosinophil percentageOrdered By: Ortega Medrano on 02-05-2025 Eosinophils/100 WBC (Bld) 0.8 % 0-5 [facility] Erythrocyte distribution wid th ratioOrdered By: Ortega Medrano on 02-05-2025 Erythrocyte distribution width (RBC) [Ratio] 11.9 % 11.6-14.6 [facility] Erythrocyte distribution wid th standard deviationOrdered By: Ortega Medrano on 02-05-2025 Erythrocyte distribution width (RBC) [Ratio] 40.4 fl 35.1-43.9 [facility] Glomerular filtration rate ( GFR) estimation/1.73 sq m using serum, plasma, or whole bOrdered By: Ortega Medrano on 02-05-2025 GFR/1.73 sq M.predicted among non-blacks MDRD (S/P/Bld) [Vol rate/Area] 94 mL/min/{1.73_m2} >60 [facility] Comment on above: mL/min/1.73m2 CKD-EP I Creatinine Equation (2020) Hematocrit Auto (Bld) [Volum e fraction]Ordered By: Ortega Medrano on 02-05-2025 Hematocrit (Bld) [Volume fraction] 39.8 % 37-47 [facility] Hemoglobin measurementOrdere d By: Ortega Medrano on 02-05-2025 Hemoglobin (Bld) [Mass/Vol] 13.0 g/dL 12.0-15.0 [facility] Immature granulocytes/100 WB C Auto (Bld)Ordered By: Ortega Medrano on 02-05-2025 Immature granulocytes/100 WBC (Bld) 0.400 % 0.0-0.9 [facility] Comment on above: IG% - Immature Granu locytes (promyelocytes, myelocytes and metamyelocytes) > 1% indicates that a LEFT SHIFT is Present. LDL calc ser/plasOrdered By: Ortega Medrano on 02-05-2025 Cholesterol in LDL [Mass/Vol] 111 mg/dL [facility] Comment on above: Iaxbyhkyeq=732-348 m g/dL & Higher Uhin=519 mg/dL or greater Laboratory - Chemistry and C hemistry - challengeOrdered By: Ortega Medrano on 02-05-2025 AST [Catalytic activity/Vol] 16 U/L <32 [facility] Lipid Profileon 02-05-2025 CHOL:HDL 4.76 Normal [facility] Comment on above: Order Comment: Order Date: 02/05/25 Order Info: [id number] - CMP Order Info: [id number] - LIPID Order Info: [id number] - TSH Order Info: 302-7 - T4F Performed By: #### L 500.4100 #### [facility] [address] [place] [address]. [place], [address] Cholesterol [Mass/Vol] 215 mg/dL High <=200 [facility] Comment on above: Order Comment: Order Date: 02/05/25 Order Info: [id number] - CMP Order Info: [id number] - LIPID Order Info: [id number] - TSH Order Info: 302-7 - T4F Result Comment: Chol esterol level, Desirable <200 mg/dL Borderline high cholesterol 200-239 mg/dL High cholesterol >=240 mg/dL Recommendations of the NCEP Adult Treatment Panel for the following risk-cutoff thresholds for the [place] population. Performed By: #### L 500.4100 #### [facility] [address] [place], [address] Cholesterol in HDL [Mass/Vol] 45 mg/dL Normal [facility] Comment on above: Order Comment: Order Date: 02/05/25 Order Info: 785- - CMP Order Info: [id number] - LIPID Order Info: 3 - TSH Order Info: 3024-02 T4F Result Comment: Liyah onal Cholesterol Education Program (NCEP) guidelines: <40 mg/dL: Low HDL-cholesterol (major risk factor for CHD) >= 60 mg/dL: High HDL-cholesterol (negative risk factor for CHD) HDL-cholesterol is affected by a number of factors, e.g. smoking, exercise, hormones, sex and age. Performed By: #### L 500.4100 #### [facility] [address] [place], [address] Cholesterol in LDL [Mass/Vol] 111 mg/dL Normal [facility] Comment on above: Order Comment: Order Date: 02/05/25 Order Info: [id number] - CMP Order Info: - LIPID Order Info: [id number] - TSH Order Info: 3024-02 T4F Result Comment: Bord wwneww=498-964 mg/dL Higher Ztuo=790 mg/dL or greater Performed By: #### L 500.4100 #### [facility] [address] [place], [address] Cholesterol in VLDL [Mass/Vol] 59 mg/dL High 5-40 [facility] Comment on above: Order Comment: Order Date: 02/05/25 Order Info: [id number] - CMP Order Info: - LIPID Order Info: [id number] - TSH Order Info: 3024-02 T4F Performed By: #### L 500.4100 #### [facility] [address] [place], [address] Triglyceride [Mass/Vol] 293 mg/dL High [facility] Comment on above: Order Comment: Order Date: 02/05/25 Order Info: [id number] - CMP Order Info: [id number] - LIPID Order Info: [id number] - TSH Order Info: 3024-7 - T4F Result Comment: The drugs N-Acetylcysteine and Metamizole may falsely depress this assay. Normal range: <150 mg/dL Borderline High: 150-199 mg/dL High: 200-499 mg/dL Very High: >500 mg/dL Performed By: #### L 500.4100 #### [facility] [address] [place], [address] MCV (mean corpuscular volume ) determinationOrdered By: Ortega Medrano on 02-05-2025 MCV (RBC) [Entitic vol] 92.3 fL 81-99 [facility] Mean corpuscular hemoglobin (MCH) determinationOrdered By: Ortega Medrano on 02-05-2025 MCH (RBC) [Entitic mass] 30.2 pg 27.0-32.0 [facility] Mean corpuscular hemoglobin concentration (MCHC) determinationOrdered By: Ortega Medrano on 02-05-2025 MCHC (RBC) [Mass/Vol] 32.7 g/dL 32-36 [facility] Mean platelet volume determi nationOrdered By: Ortega Medrano on 02-05-2025 Platelet mean volume (Bld) [Entitic vol] 9.2 fL 6.2-12.0 [facility] Monocyte percentageOrdered B y: Ortega Medrano on 02-05-2025 Monocytes/100 WBC (Bld) 5.7 % 0-10 [facility] Neutrophil percentageOrdered By: Ortega Medrano on 02-05-2025 Neutrophils/100 WBC (Bld) 63.3 % 47-70 [facility] Nucleated red blood cell per centageOrdered By: Ortega Medrano on 02-05-2025 Nucleated RBC/100 WBC (Bld) [Ratio] 0 % 0-5 [facility] Platelet countOrdered By: Lidia Medrano on 02-05-2025 Platelets (Bld) [#/Vol] 382 10*3/uL 150-450 [facility] Potassium measurement (mass/ volume)Ordered By: Ortega Medrano on 02-05-2025 Potassium (Unsp spec) [Mass/Vol] 4.1 mmol/L 3.3-5.1 [facility] RBC Auto (Bld) [#/Vol]Ordere d By: Ortega Medrano on 02-05-2025 RBC (Bld) [#/Vol] 4.31 10*6/uL 4.2-5.4 [facility] Screening total cholesterol/ high density lipoprotein (HDL) cholesterol ratioOrdered By: Ortega Medrano on 02-05-2025 Cholesterol.total/Cho lesterol in HDL [Mass ratio] 4.76 {ratio} [facility] Serum creatinine measurement (mass/volume)Ordered By: Ortega Medrano on 02-05-2025 Creatinine [Mass/Vol] 0.82 mg/dL 0.70-1.20 [facility] Serum globulin measurementOr dered By: Ortega Medrano on 02-05-2025 Globulin (S) [Mass/Vol] 2.9 g/dL 2.2-4.2 [facility] Serum glucose measurement (m ass/volume)Ordered By: Ortega Medrano on 02-05-2025 Glucose [Mass/Vol] 93 mg/dL 70-99 [facility] Serum or plasma alanine gorman otransferase (ALT) measurementOrdered By: Ortega Medrano on 02-05-2025 ALT [Catalytic activity/Vol] 12 U/L <35 [facility] Serum or plasma albumin harry urement (mass/volume)Ordered By: Ortega Medrano on 02-05-2025 Albumin [Mass/Vol] 4.2 g/dL 3.5-5.0 [facility] Serum or plasma albumin/glob ulin mass ratioOrdered By: Ortega Medrano on 02-05-2025 Albumin/Globulin [Mass ratio] 1.4 {ratio} 0.9-2.4 [facility] Serum or plasma alkaline domi sphatase measurementOrdered By: Ortega Medrano on 02-05-2025 ALP [Catalytic activity/Vol] 62 U/L 35-104 [facility] Serum or plasma calcium harry urement (mass/volume)Ordered By: Ortega Medrano on 02-05-2025 Calcium [Mass/Vol] 9.6 mg/dL 7.6-11.0 [facility] Serum or plasma cholesterol in HDL measurement (mass/volume)Ordered By: Ortega Medrano on 02-05-2025 Cholesterol in HDL [Mass/Vol] 45 mg/dL >40 [facility] Comment on above: National Cholesterol Education Program (NCEP) guidelines:<40 mg/dL: Low HDL-cholesterol (major risk factor for CHD)>= 60 mg/dL: High HDL-cholesterol (negative risk factor for CHD)HDL-cholesterol is affected by a number of factors, e.g. smoking, exercise, hormones, sex and age. Serum or plasma cholesterol measurement (mass/volume)Ordered By: Ortega Medrano on 02-05-2025 Cholesterol [Mass/Vol] 215 mg/dL High <201 [facility] Comment on above: Cholesterol level, D esirable <200 mg/dLBorderline high cholesterol 200-239 mg/dLHigh cholesterol >=240 mg/dLRecommendations of the NCEP Adult Treatment Panel for the following risk-cutoff thresholds for the [place] population. Serum or plasma thyroperoxid ase antibody assay (units/volume)Ordered By: Ortega Medrano on 02-05-2025 TPO Ab Qn [IU]/mL 0-34 [facility] Comment on above: Performed at: [address] [id number] Director: Kartik Cano MD, Phone: [phone] at: [facility] [id number] Director: Rodrigo Edmondson PhD, Phone: [phone] Serum or plasma urea nitroge n measurement (mass/volume)Ordered By: Ortega Medrano on 02-05-2025 Urea nitrogen [Mass/Vol] 7 mg/dL 4-19 [facility] Sodium levelOrdered By: Ortega Medrano on 02-05-2025 Sodium [Moles/Vol] 138 mmol/L 133-145 [facility] T4 Free Directon 02-05-2025 T4 FREE DIRECT 1.00 ng/dL Normal 0.76-1.46 [facility] Comment on above: Order Comment: Order Date: 02/05/25 Order Info: [id number] - CMP Order Info: [id number] - LIPID Order Info: [id number] - TSH Order Info: 7 - T4F Performed By: #### L 500.4100 #### [facility] [address] [place], [address] T4 freeOrdered By: Ortega doran on 02-05-2025 Free T4 [Mass/Vol] 1.00 ng/dL 0.76-1.46 [facility] TSH DL <= 0.005 mIU/L QnOrde red By: Ortega Medrano on 02-05-2025 TSH Qn 1.840 uIU/mL 0.300-4.20 0 [facility] Thyroid Stim Hormone (TSH)on 02-05-2025 TSH 1.840 uIU/mL Normal 0.300-4.20 0 [facility] Comment on above: Order Comment: Order Date: 02/05/25 Order Info: [id number] - CMP Order Info: [id number] - LIPID Order Info: [id number] - TSH Order Info: 7 - T4F Performed By: #### L 500.4100 #### [facility] [address] [place], [place], [id number] Thyroid stimulating immunogl obulins detectionOrdered By: Ortega Medrano on 02-05-2025 Thyroid stimulating immunoglobulins Ql (S) <0.10 IU/L 0.00-0.55 [facility] Total proteinOrdered By: Jose Medrano on 02-05-2025 Protein [Mass/Vol] 7.2 g/dL 5.9-8.4 [facility] Triglycerides measurementOrd ered By: Ortega Medrano on 02-05-2025 Triglyceride [Mass/Vol] 293 mg/dL High <199 [facility] Comment on above: The drugs N-Acetylcy steine and Metamizole may falsely depress this assay. Normal range: <150 mg/dLBorderline High: 150-199 mg/dLHigh: 200-499 mg/dLVery High: >500 mg/dL Vitamin B12on 02-05-2025 Cobalamin (Vitamin B12) [Mass/Vol] 356 pg/mL Normal 180-914 [facility] Comment on above: Order Comment: Order Date: 02/05/25 Order Info: [id number]- - CMP Order Info: [id number] - LIPID Order Info: 3 - TSH Order Info: [id number] - T4F Performed By: #### L 500.4100 #### [facility] [address] [place], [place], [address] Vitamin B12 ser/plasOrdered By: Ortega Medrano on 02-05-2025 Cobalamin (Vitamin B12) [Mass/Vol] 356 pg/mL 180-914 [facility] Vitamin D,25 Hydroxyon 02-05 Vitamin D 25-OH 35.6 ng/mL Normal 30-100 [facility] Comment on above: Order Comment: Order Date: 02/05/25 Order Info: 0786 - CMP Order Info: [id number] - LIPID Order Info: [id number] - TSH Order Info: 3024-02 - T4F Result Comment: Luba min D Status Deficiency: <20 ng/mL (50nmol/L) Insufficiency: 20-30 ng/mL (50-75 nmol/L) Sufficiency: 30-100 ng/mL (75-250 nmol/L) Toxicity: >100 ng/mL (>250 nmol/L) Performed By: #### L 500.4100 #### [facility] [address] [place], [place], [address] White blood cell (WBC) count Ordered By: Ortega Medrano on 02-05-2025 WBC (Bld) [#/Vol] 11.0 10*3/uL 4.4-11.0 [facility] Absolute lymphocyte countOrd ered By: HEALTH ASSESSMENT on 11-15-2024 Lymphocytes Auto (Unsp spec) [#/Vol] 2.85 10*3/uL 0.83-4.51 [facility] Absolute neutrophil countOrd ered By: HEALTH ASSESSMENT on 11-15-2024 Neutrophils (Bld) [#/Vol] 5.7 10*3/uL 2.0-7.7 [facility] Absolute nucleated red blood cell countOrdered By: HEALTH ASSESSMENT on 11-15-2024 Nucleated RBC (Bld) [#/Vol] 0.00 10*3/uL 0-5 [facility] Anion gap in Serum or Plasma Ordered By: HEALTH ASSESSMENT on 11-15-2024 Anion gap [Moles/Vol] 9 mmol/L 5-15 [facility] BUN/creatinine ratioOrdered By: HEALTH ASSESSMENT on 11-15-2024 Urea nitrogen/Creatinine [Mass ratio] 14.5 mg/mg 10-20 [facility] Bilirubin directOrdered By: HEALTH ASSESSMENT on 11-15-2024 Bilirubin.direct [Mass/Vol] 0.14 mg/dL 0.00-0.30 [facility] Bilirubin, totalOrdered By: HEALTH ASSESSMENT on 11-15-2024 Bilirubin [Mass/Vol] 0.37 mg/dL 0.00-1.30 [facility] Blood band neutrophil count as percentage of total leukocytesOrdered By: HEALTH ASSESSMENT on 11-15-2024 Band form neutrophils/100 WBC (Bld) 61.9 % 47-70 [facility] CBC, Employeeon 11-15-2024 Absolute Lymph 2.85 X10 3/uL Normal 0.83-4.51 [facility] Comment on above: Performed By: #### L 7400.0280 #### [facility] [address] [place], [address] Absolute Neut 5.7 X10 3/uL Normal 2.0-7.7 [facility] Comment on above: Performed By: #### L 7400.0280 #### [facility] [address] [place], [address] Basophils/100 WBC (Bld) 0.8 % Normal 0-1 [facility] Comment on above: Performed By: #### L 7400.0280 #### [facility] [address] [place], [address] Eosinophils/100 WBC (Bld) 1.4 % Normal 0-5 [facility] Comment on above: Performed By: #### L 7400.0280 #### [facility] [address] [place], [address] Erythrocyte distribution width (RBC) [Ratio] 12.1 % Normal 11.6-14.6 [facility] Comment on above: Performed By: #### L 7400.0280 #### [facility] [address] [place], [address] Hematocrit (Bld) [Volume fraction] 39.9 % Normal 37-47 [facility] Comment on above: Performed By: #### L 7400.0280 #### [facility] [address] [place], [address] Hemoglobin (Bld) [Mass/Vol] 13.2 g/dL Normal 12.0-15.0 [facility] Comment on above: Performed By: #### L 7400.0280 #### [facility] [address] [place], [address] Lymphocytes/100 WBC (Bld) 30.9 % Normal 19-41 [facility] Comment on above: Performed By: #### L 7400.0280 #### [facility] [address] [place], [address] MCH (RBC) [Entitic mass] 30.6 pg Normal 27.0-32.0 [facility] Comment on above: Performed By: #### L 7400.0280 #### [facility] [address] [place], [address] MCHC (RBC) [Mass/Vol] 33.1 g/dL Normal 32-36 [facility] [facility] Comment on above: Performed By: #### L 7400.0280 #### [facility] [address] [place], [address] MCV (RBC) [Entitic vol] 92.4 fL Normal 81-99 [facility] Comment on above: Performed By: #### L 7400.0280 #### [facility] [address] [place], [address] Monocytes/100 WBC (Bld) 4.7 % Normal 0-10 [facility] Comment on above: Performed By: #### L 7400.0280 #### [facility] [address] [place], [address] Neutrophils/100 WBC (Bld) 61.9 % Normal 47-70 [facility] Comment on above: Performed By: #### L 7400.0280 #### [facility] [address] [place], [address] NRBC # 0.00 10 3/uL Normal 0-5 [facility] Comment on above: Performed By: #### L 7400.0280 #### [facility] [address] [place], [address] Nucleated RBC (Bld) [#/Vol] 0 10*3/uL Normal 0-5 [facility] Comment on above: Performed By: #### L 7400.0280 #### [facility] [address] [place], [address] Platelet mean volume (Bld) [Entitic vol] 8.8 fL Normal 6.2-12.0 [facility] Comment on above: Performed By: #### L 7400.0280 #### [facility] [address] [place], [address] Platelets (Bld) [#/Vol] 354 10*3/uL Normal 150-450 [facility] Comment on above: Performed By: #### L 7400.0280 #### [facility] [address] [place], [address] RBC (Bld) [#/Vol] 4.32 10*6/uL Normal 4.2-5.4 [facility] Comment on above: Performed By: #### L 7400.0280 #### [facility] [address] [place], [place], [address] RDW SD 41.0 fl Normal 35.1-43.9 [facility] Comment on above: Performed By: #### L 7400.0280 #### [facility] [address] [place], [place], [address] WBC (Bld) [#/Vol] 9.2 10*3/uL Normal 4.4-11.0 [facility] Comment on above: Performed By: #### L 7400.0280 #### [facility] [address] [place], [place], [id number] Calculated very low density lipoprotein (VLDL) cholesterol measurementOrdered By: HEALTH ASSESSMENT on 11-15-2024 Calculated very low density lipoprotein (VLDL) cholesterol measurement 41 mg/dL High 5-40 [facility] Carbon dioxide, total [Moles /volume] in Central venous bloodOrdered By: HEALTH ASSESSMENT on 11-15-2024 CO2 [Moles/Vol] 23.0 mmol/L 21.0-32.0 [facility] Chloride assayOrdered By: HE ALTH ASSESSMENT on 11-15-2024 Chloride [Moles/Vol] 106 mmol/L 98-108 [facility] Employee Profileon Cholesterol in LDL [Mass/Vol] 133 mg/dL High 0-130 [facility] Comment on above: Performed By: #### L 7400.0280 #### [facility] [address] [place], [address] Erythrocyte distribution wid th ratioOrdered By: HEALTH ASSESSMENT on 11-15-2024 Erythrocyte distribution width (RBC) [Ratio] 12.1 % 11.6-14.6 [facility] Erythrocyte distribution wid th standard deviationOrdered By: HEALTH ASSESSMENT on 11-15-2024 Erythrocyte distribution width (RBC) [Ratio] 41.0 fl 35.1-43.9 [facility] Glomerular filtration rate ( GFR) estimation/1.73 sq m using serum, plasma, or whole bOrdered By: HEALTH ASSESSMENT on 11-15-2024 GFR/1.73 sq M.predicted among non-blacks MDRD (S/P/Bld) [Vol rate/Area] 95 mL/min/{1.73_m2} >60 [facility] Comment on above: mL/min/1.73m2 CKD-EP I Creatinine Equation (2020) Hematocrit Auto (Bld) [Volum e fraction]Ordered By: HEALTH ASSESSMENT on 11-15-2024 Hematocrit (Bld) [Volume fraction] 39.9 % 37-47 [facility] Hemoglobin measurementOrdere d By: HEALTH ASSESSMENT on 11-15-2024 Hemoglobin (Bld) [Mass/Vol] 13.2 g/dL 12.0-15.0 [facility] - Chemistry and C hemistry - challengeOrdered By: HEALTH ASSESSMENT on 11-15-2024 AST [Catalytic activity/Vol] 12 U/L <32 [facility] Lactate dehydrogenase (LDH) measurementOrdered By: HEALTH ASSESSMENT on 11-15-2024 LDH [Catalytic activity/Vol] 168 U/L 84-246 [facility] Low density lipoprotein (LDL ) cholesterol measurementOrdered By: HEALTH ASSESSMENT on 11-15-2024 Cholesterol in LDL [Mass/Vol] 133 mg/dL High 0-130 [facility] MCV (mean corpuscular volume ) determinationOrdered By: HEALTH ASSESSMENT on 11-15-2024 MCV (RBC) [Entitic vol] 92.4 fL 81-99 [facility] Mean corpuscular hemoglobin (MCH) determinationOrdered By: HEALTH ASSESSMENT on 11-15-2024 MCH (RBC) [Entitic mass] 30.6 pg 27.0-32.0 [facility] Mean corpuscular hemoglobin concentration (MCHC) determinationOrdered By: HEALTH ASSESSMENT on 11-15-2024 MCHC (RBC) [Mass/Vol] 33.1 g/dL 32-36 [facility] Mean platelet volume determi nationOrdered By: HEALTH ASSESSMENT on 11-15-2024 Platelet mean volume (Bld) [Entitic vol] 8.8 fL 6.2-12.0 [facility] Nucleated red blood cell per centageOrdered By: HEALTH ASSESSMENT on 11-15-2024 Nucleated RBC/100 WBC (Bld) [Ratio] 0 % 0-5 [facility] Platelet countOrdered By: HE ALTH ASSESSMENT on 11-15-2024 Platelets (Bld) [#/Vol] 354 10*3/uL 150-450 [facility] Potassium measurement (mass/ volume)Ordered By: HEALTH ASSESSMENT on 11-15-2024 Potassium (Unsp spec) [Mass/Vol] 4.3 mmol/L 3.3-5.1 [facility] RBC Auto (Bld) [#/Vol]Ordere d By: HEALTH ASSESSMENT on 11-15-2024 RBC (Bld) [#/Vol] 4.32 10*6/uL 4.2-5.4 [facility] Screening total cholesterol/ high density lipoprotein (HDL) cholesterol ratioOrdered By: HEALTH ASSESSMENT on 11-15-2024 Cholesterol.total/Cho lesterol in HDL [Mass ratio] 4.65 {ratio} [facility] Serum creatinine measurement (mass/volume)Ordered By: HEALTH ASSESSMENT on 11-15-2024 Creatinine [Mass/Vol] 0.82 mg/dL 0.70-1.20 [facility] Serum globulin measurementOr dered By: HEALTH ASSESSMENT on 11-15-2024 Globulin (S) [Mass/Vol] 2.9 g/dL 2.2-4.2 [facility] Serum glucose measurement (m ass/volume)Ordered By: HEALTH ASSESSMENT on 11-15-2024 Glucose [Mass/Vol] 98 mg/dL 70-99 [facility] Serum or plasma alanine gorman otransferase (ALT) measurementOrdered By: HEALTH ASSESSMENT on 11-15-2024 ALT [Catalytic activity/Vol] 8 U/L <35 [facility] Serum or plasma albumin harry urement (mass/volume)Ordered By: HEALTH ASSESSMENT on 11-15-2024 Albumin [Mass/Vol] 4.0 g/dL 3.5-5.0 [facility] Serum or plasma albumin/glob ulin mass ratioOrdered By: HEALTH ASSESSMENT on 11-15-2024 Albumin/Globulin [Mass ratio] 1.4 {ratio} 0.9-2.4 [facility] Serum or plasma alkaline domi sphatase measurementOrdered By: HEALTH ASSESSMENT on 11-15-2024 ALP [Catalytic activity/Vol] 58 U/L 35-104 [facility] Serum or plasma calcium harry urement (mass/volume)Ordered By: HEALTH ASSESSMENT on 11-15-2024 Calcium [Mass/Vol] 9.0 mg/dL 7.6-11.0 [facility] Serum or plasma cholesterol in HDL measurement (mass/volume)Ordered By: HEALTH ASSESSMENT on 11-15-2024 Cholesterol in HDL [Mass/Vol] 48 mg/dL >40 [facility] Comment on above: National Cholesterol Education Program (NCEP) guidelines:<40 mg/dL: Low HDL-cholesterol (major risk factor for CHD)>= 60 mg/dL: High HDL-cholesterol (negative risk factor for CHD)HDL-cholesterol is affected by a number of factors, e.g. smoking, exercise, hormones, sex and age. Serum or plasma cholesterol measurement (mass/volume)Ordered By: HEALTH ASSESSMENT on 11-15-2024 Cholesterol [Mass/Vol] 222 mg/dL High <201 [facility] Comment on above: Cholesterol level, D esirable <200 mg/dLBorderline high cholesterol 200-239 mg/dLHigh cholesterol >=240 mg/dLRecommendations of the NCEP Adult Treatment Panel for the following risk-cutoff thresholds for the [place] population. Serum or plasma urea nitroge n measurement (mass/volume)Ordered By: HEALTH ASSESSMENT on 11-15-2024 Urea nitrogen [Mass/Vol] 12 mg/dL 4-19 [facility] Serum or plasma uric acid me asurement (mass/volume)Ordered By: HEALTH ASSESSMENT on 11-15-2024 Urate [Mass/Vol] 3.9 mg/dL 2.6-6.0 [facility] Comment on above: The drugs N-Acetylcy steine and Metamizole may falsely depress this assay. Sodium levelOrdered By: [facility] ASSESSMENT on 11-15-2024 Sodium [Moles/Vol] 138 mmol/L 133-145 [facility] Total proteinOrdered By: JACKIE [facility] ASSESSMENT on 11-15-2024 Protein [Mass/Vol] 6.9 g/dL 5.9-8.4 [facility] Triglycerides measurementOrd ered By: HEALTH ASSESSMENT on 11-15-2024 Triglyceride [Mass/Vol] 207 mg/dL High <199 [facility] Comment on above: The drugs N-Acetylcy steine and Metamizole may falsely depress this assay. Normal range: <150 mg/dLBorderline High: 150-199 mg/dLHigh: 200-499 mg/dLVery High: >500 mg/dL White blood cell (WBC) count Ordered By: HEALTH ASSESSMENT on 11-15-2024 WBC (Bld) [#/Vol] 9.2 10*3/uL 4.4-11.0 [facility] Quantiferon TB-Gold+on 10-30 QFT MITOGEN GERBER > 10.00 Normal . [facility] Comment on above: Order Comment: Ramirez tripathi Comment: [id number] Specimen Comment: No. of containers..01 ThinPrep Vial Performed By: #### L 7400.0280 #### [facility] [address] [place], [address] QFT NIL VALUE 0.08 IU/mL Normal . [facility] Comment on above: Order Comment: Ramirez tripathi Comment: [id number] Specimen Comment: No. of containers..01 ThinPrep Vial Performed By: #### L 7400.0280 #### [facility] [address] [place], [address] QFT TB GOLD+ Comment Normal . [facility] Comment on above: Order Comment: Ramirez tripathi Comment: [id number] Specimen Comment: No. of containers..01 ThinPrep Vial Result Comment: Regino tiFERON-TB Gold Plus is [...] for the test. Performed By: #### L 7400.0280 #### [facility] [address] [place], [address] QFT TB POS CRIT Negative Normal Negative [facility] Comment on above: Order Comment: Ramirez tripathi Comment: [id number] Specimen Comment: No. of containers..01 ThinPrep Vial Result Comment: No r esponse to M [...] interferon gamma. Chemiluminescence immunoassay methodology Performed at: [facility] [employer] [id number] Engineering Administrator: Rodrigo Edmondson PhD, Phone: [phone] Performed By: #### L 7400.0280 #### [facility] [address] [place], [address] QFT TB1+ AG GERBER 0.16 IU/mL Normal . [facility] Comment on above: Order Comment: Speci men Comment: [id number] Specimen Comment: No. of containers..01 ThinPrep Vial Performed By: #### L 7400.0280 #### [facility] [address] [place], [address] QFT TB2+ AG GERBER 0.18 IU/mL Normal . [facility] Comment on above: Order Comment: Speci men Comment: [id number] Specimen Comment: No. of containers..01 ThinPrep Vial Performed By: #### L 7400.0280 #### [facility] [address] [place] [place], [address] Qualitative QuantiFERON-TB g old in tube testOrdered By: HEALTH ASSESSMENT on 10-25-2024 M. tuberculosis tuberculin stim IFN-g Ql (Bld) 0.16 IU/mL . [facility] Quantiferon TB-Gold+on 10-23 QFT MITOGEN GERBER Normal [facility] Comment on above: Result Comment: left in incubator too long Performed By: #### L 500.4100 #### [facility] [address] [place], [address] QFT NIL VALUE Normal [facility] Comment on above: Result Comment: left in incubator too long Performed By: #### L 500.4100 #### [facility] [address] [place], [address] QFT TB GOLD+ Normal [facility] Comment on above: Result Comment: left in incubator too long Performed By: #### L 500.4100 #### [facility] [address] [place], [address] QFT TB POS CRIT Normal [facility] Comment on above: Result Comment: left in incubator too long Performed By: #### L 500.4100 #### [facility] [address] [place], [address] QFT TB1+ AG GERBER Normal [facility] Comment on above: Result Comment: left in incubator too long Performed By: #### L 500.4100 #### [facility] [address] [place], [address] QFT TB2+ AG GERBER Normal [facility] Comment on above: Result Comment: left in incubator too long Performed By: #### L 500.4100 #### [facility] [address] [place], [address] PAP IG HPV APTIMA 16/18,45on 08-04-2024 ADEQ Comment Normal . [facility] Comment on above: Order Comment: Speci men Comment: [id number] Specimen Comment: No. of containers..01 ThinPrep Vial Result Comment: Sati sfactory for evaluation. Endocervical and/or squamous metaplastic cells (endocervical component) are present. Performed By: #### L 7400.0280 #### [facility] [address] [place], [address] COMM . Normal . [facility] Comment on above: Order Comment: Speci men Comment: [id number] Specimen Comment: No. of containers..01 ThinPrep Vial Performed By: #### L 7400.0280 #### [facility] [address] [place], [address] COMMENT Comment Normal . [facility] Comment on above: Order Comment: Speci men Comment: [id number] Specimen Comment: No. of containers..01 ThinPrep Vial Result Comment: This liquid based ThinPrep(R) pap test was screened with the use of an image guided system. Performed By: #### L 7400.0280 #### [facility] [address] [place], [address] DIAG Comment Normal . [facility] Comment on above: Order Comment: Speci men Comment: [id number] Specimen Comment: No. of containers..01 ThinPrep Vial Result Comment: NEGA TIVE FOR INTRAEPITHELIAL LESION OR MALIGNANCY. Performed By: #### L 7400.0280 #### [facility] [address] [place], [address] HPV APTIMA, HR Negative Normal Negative [facility] Comment on above: Order Comment: Speci men Comment: [id number] Specimen Comment: No. of containers..01 ThinPrep Vial Result Comment: This nucleic acid amplification test detects fourteen high- risk HPV types (16,18,31,33,35,39,45,51,52,56,58,59,66,68) without differentiation. Performed By: #### L 7400.0280 #### [facility] [address] [place], [address] HPV Mi Rfx Comment Normal . [facility] Comment on above: Order Comment: Speci men Comment: [id number] Specimen Comment: No. of containers..01 ThinPrep Vial Result Comment: Crit eryaneli not met, HPV Genotype not performed. Performed at: [facility] [address] [address] [place], [place] [id number] Engineering Administrator: Jeovanny Slade MD, Phone: [phone] Performed at: - [address] [id number] Engineering Administrator: Magalie Benítez MD, Phone: [phone] Performed at: = - [facility] [id number] Engineering Administrator: Magalie Benítez MD, Phone: [phone] Performed By: #### L 7400.0280 #### [facility] [address] [place], [address] PAPSMR Comment Normal . [facility] Comment on above: Order Comment: Speci men Comment: [id number] Specimen Comment: No. of containers..01 ThinPrep Vial Result Comment: The Pap smear is a screening test designed to aid in the detection of premalignant and malignant conditions of the uterine cervix. It is not a diagnostic procedure and should not be used as the sole means of detecting cervical cancer. Both false-positive and false-negative reports do occur. Performed By: #### L 7400.0280 #### [facility] [address] [place], [address] PERFORM Comment Normal . [facility] Comment on above: Order Comment: Speci men Comment: [id number] Specimen Comment: No. of containers..01 ThinPrep Vial Result Comment: Joslyn Tolentino, Configuration Management Advisor (ASCP) Performed By: #### L 7400.0280 #### [facility] [address] [place], [address] CNOVon 07-30-2024 CNOV Office Visit (UCWSTR ) MEMEMARILYNHAMLET TAPIA ([id number]) 1985 F [facility] Date Time Provider Department 07/30/24 3:15 PM YORDY ANDERSEN [facility] During your visit today, we recorded the [...] Medications Discontinued During This Encounter Prescriptions - Wimhmryq-Lt-Esm-Fe-FA ( VITAMIN) tab (Discontinued) Reported on 07/30/2024 - fenugreek seed extract 500 mg cap (Discontinued) Reported on 07/30/2024 - Breast Pump mynor (Discontinued) Reported on 07/30/2024 - Breast Pump mynor (Discontinued) Reported on 07/30/2024 - OLIVEIRA'S YEAST ORAL (Discontinued) Reported on 07/30/2024 - Norethindrone, Contraceptive, (ORTHO MICRONOR) 0.35 mg tablet (Discontinued) Reported on 07/30/2024 Level of Service: OFFICE/OUTPATIENT [facility] 30 MINUTES [22048] Encounter Status:Closed by YORDY ANDERSEN on 07/30/24 Normal [facility] 37on 07-29-2024 37 -Healed well. Normal [facility] Office Visiton 07-29-2024 Follow-up visit [id number] Hamlet Teixeira 1985 F Date Provider Department Center 07/29/2024 [id number] YOUNGER MG ACH COL None Family History Family Status - Relation Status Age at Mother Alive Father Alive Brother Alive Daughter Alive Son Level of Service:65219 [place] POSTOP FOLLOW UP VISIT RELATED TO ORIGINAL PX Reason for Visit and Comments: Follow-up [322701] - follow up to perianal abscess drainage in office 07/07/24-antibiotic course. Other [0] - Pt unaccompanied [facility] Progress Noteon 07-29-2024 Progress Note @ASSESSMENTBEGINPHAN [...] ROS: Review of Systems as recordedby the medical secretary has been reviewed by me, and I [...] Younger MD on 07/29/2024 at 3:29 PM. 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 Normal [facility] Office Visiton 07-07-2024 Follow-up visit [id number] Hamlet Teixeira 1985 F Date Provider Department Center 07/07/2024 [id number] GÓMEZ MG ACH COL None Family History Family Status - Relation Status Age at Mother Alive Father Alive Brother Alive Daughter Alive Son Level of Service:76500 SC OFFICE/OUTPT VISIT,PROCEDURE ONLY Reason for Visit and Comments: New Patient [542] - Evaluation for perianal abscess referring Dr. Guerra Other [0] - Pt unaccomapnied Normal [facility] Progress Noteon 07-07-2024 Progress Note @ASSESSMENTBEGINPHAN [...] ROS: Review of Systems as recordedby the medical secretary has been reviewed by me, and I [...] MD on 07/07/2024 at 2:51 PM. Normal [facility] Absolute lymphocyte countOrd ered By: Michellmagdalena Woodard on 09-19-2023 Lymphocytes Auto (Unsp spec) [#/Vol] 2.61 10*3/uL 0.83-4.51 [facility] Automated lymphocyte count a s percentage of total leukocytesOrdered By: Michell Woodard on 09-19-2023 Lymphocytes/100 WBC Auto (Unsp spec) 36.7 % 19-41 [facility] Basophil percentageOrdered B y: Michell Woodard on 09-19-2023 Basophils/100 WBC (Bld) 1.0 % 0-1 [facility] Bilirubin [Mass/Vol] 0.50 mg/dL 0.20-1.00 [facility] Comment on above: For patients on eltr ombopag therapy, use of Dimension Parsons TBIL is not recommended. Chloride [Moles/Vol] 113 mmol/L 98-107 [facility] Cholesterol [Mass/Vol] 210 mg/dL <200 [facility] Comment on above: <200 mg/dL Desirable 200-240 mg/dL Borderline >240 mg/dL High Risk Eosinophils/100 WBC (Bld) 3.4 % 0-5 [facility] Glucose [Mass/Vol] 104 mg/dL 74-106 [facility] Comment on above: Fasting Glucose resu lt from 100 to 125 mg/dL suggests IMPAIRED HOMEOSTASIS per A.D.A. criteria. Hemoglobin (Bld) [Mass/Vol] 12.6 g/dL 12.0-15.0 [facility] Monocytes/100 WBC (Bld) 6.3 % 0-10 [facility] Neutrophils (Bld) [#/Vol] 3.7 10*3/uL 2.0-7.7 [facility] Neutrophils/100 WBC (Bld) 52.3 % 47-70 [facility] Potassium [Moles/Vol] 3.9 mmol/L 3.5-5.1 [facility] Protein [Mass/Vol] 7.3 g/dL 6.4-8.2 [facility] Sodium [Moles/Vol] 140 mmol/L 136-145 [facility] Triglyceride [Mass/Vol] 170 mg/dL <199 [facility] Comment on above: The drugs N-Acetylcy steine and Metamizole may falsely depress this assay.Serum Triglycerides Reference Interval Normal <150 mg/dL Borderline high 150 - 199 mg/dL High 200 - 499 mg/dL Very High > or = 500 mg/dL WBC (Bld) [#/Vol] 7.1 10*3/uL 4.4-11.0 [facility] Determination of erythrocyte mean corpuscular volume (MCV)Ordered By: Michell Woodard on 09-19-2023 MCV (RBC) [Entitic vol] 90.1 fL 81-99 [facility] Erythrocyte distribution wid th ratioOrdered By: Michellmagdalena Woodard on 09-19-2023 Erythrocyte distribution width (RBC) [Ratio] 12.7 % 11.6-14.6 [facility] Erythrocyte distribution wid th standard deviationOrdered By: Michell Woodard on 09-19-2023 Erythrocyte distribution width (RBC) [Entitic vol] 41.9 fL 35.1-43.9 [facility] Hematocrit Auto (Bld) [Volum e fraction]Ordered By: Michell Woodard on 09-19-2023 Hematocrit (Bld) [Volume fraction] 39.2 % 37-47 [facility] High density lipoprotein (HD L) measurementOrdered By: Michell Woodard on 09-19-2023 Cholesterol in HDL (Body fld) [Mass/Vol] 41 mg/dL >40 [facility] Comment on above: The drugs N-Acetylcy steine and Metamizole may falsely depress this assay. Reference Range HDL <40 mg/dL Low HDL Cholesterol HDL >or= 60 mg/dL High HDL Cholesterol Immature granulocytes/100 WB C Auto (Bld)Ordered By: Michell Woodard on 09-19-2023 Immature granulocytes/100 WBC (Bld) 0.300 % 0.0-0.9 [facility] Comment on above: IG% - Immature Granu locytes (promyelocytes, myelocytes and metamyelocytes) > 1% indicates that a LEFT SHIFT is Present. Laboratory - Chemistry and C hemistry - challengeOrdered By: Michell Woodard on 09-19-2023 Albumin/Globulin [Mass ratio] 0.9 {ratio} 0.9-2.4 [facility] ALP [Catalytic activity/Vol] 68 U/L 45-117 [facility] ALT [Catalytic activity/Vol] 34 U/L 13-56 [facility] CO2 [Moles/Vol] 25.0 mmol/L 21.0-32.0 [facility] Globulin (S) [Mass/Vol] 3.9 g/dL 2.2-4.2 [facility] Urea nitrogen/Creatinine [Mass ratio] 12.3 mg/mg 10-20 [facility] Laboratory - Hematology and Cell countsOrdered By: Michell Woodard on 09-19-2023 MCH (RBC) [Entitic mass] 29.0 pg 27.0-32.0 [facility] MCHC (RBC) [Mass/Vol] 32.1 g/dL 32-36 [facility] Nucleated RBC/100 WBC (Bld) [Ratio] 0 % 0-5 [facility] Platelets (Bld) [#/Vol] 304 10*3/uL 150-450 [facility] Low density lipoprotein (LDL ) cholesterol measurementOrdered By: Michell Woodard on 09-19-2023 Cholesterol in LDL (Body fld) [Moles/Vol] 135 mg/dL 0-130 [facility] No Panel InformationOrdered By: Michell Woodard on 09-19-2023 Vitamin D 25-Hydroxy 23.2 ng/mL [facility] Comment on above: Vitamin D 25(OH) Sta tus Range Deficiency <20 ng/mL (50nmol/L) Insufficiency 20 - 30 ng/mL (50 - 75 nmol/L) Sufficiency 30 - 100 ng/mL (75 - 250 nmol/L) Toxicity >100 ng/mL (>250 nmol/L) Estimated GFR (MDRD) Amer 102 mL/min >60 [facility] Comment on above: GFR Calc Estimated GFR (MDRD) Non-Af Amer 84 mL/min >60 [facility] Comment on above: Non- GFR Calc Platelet mean volume Rafael-Ec ker (Bld) [Entitic vol]Ordered By: Michell Woodard on 09-19-2023 Platelet mean volume (Bld) [Entitic vol] 8.6 fL 6.2-12.0 [facility] RBC Auto (Bld) [#/Vol]Ordere d By: Michell Woodard on 09-19-2023 RBC (Bld) [#/Vol] 4.35 10*6/uL 4.2-5.4 [facility] Serum or plasma calcium harry urement (mass/volume)Ordered By: Michell Woodard on 09-19-2023 Calcium [Mass/Vol] 9.0 mg/dL 8.5-10.1 [facility] Serum or plasma creatinine m easurement (mass/volume)Ordered By: Michell Woodard on 09-19-2023 Creatinine [Mass/Vol] 0.81 mg/dL 0.55-1.02 [facility] Comment on above: The validity of the calculated GFR & GFRAA in patients over 70 years has not been determined. Clinical correlation is essential. Serum or plasma thyroid stim ulating hormone (TSH) measurement (units/volume)Ordered By: Michell Woodard on 09-19-2023 TSH Qn 1.55 uIU/mL 0.358-3.74 [facility] Serum or plasma thyroperoxid ase antibody assay (units/volume)Ordered By: Michell Woodard on 09-19-2023 TPO Ab Qn [IU]/mL 0-34 [facility] Comment on above: Performed at: [address] [id number] Director: Rodrigo Edmondson PhD, Phone: [phone] Serum or plasma urea nitroge n measurement (mass/volume)Ordered By: Michell Woodard on 09-19-2023 Urea nitrogen [Mass/Vol] 10 mg/dL 7-18 [facility] Thin prep Papanicolaou smear with manual screeningOrdered By: Michell Woodard on 09-19-2023 Thin prep Papanicolaou smear with manual screening 0.80 ng/dL 0.76-1.46 [facility] Thin prep Papanicolaou smear with manual screening 3.4 g/dL 3.2-5.0 [facility] Thin prep Papanicolaou smear with manual screening 20 U/L 15-37 [facility] Thin prep Papanicolaou smear with manual screening 2 5-15 [facility] Very low density lipoprotein (VLDL) cholesterol measurementOrdered By: Michell Woodard on 09-19-2023 Cholesterol in VLDL Calc [Moles/Vol] 34 mg/dL 5-40 [facility] Whole blood hemoglobin A1c/t otal hemoglobin ratio (mass fraction)Ordered By: Michell Woodard on 09-19-2023 HbA1c (Bld) [Mass fraction] 5.5 % 3.8-5.6 [facility] Comment on above: Normal < 5.7 % Predi abetic 5.7 - 6.4 % Diabetic >or= 6.5 % Please note range changes. CBCon 02-07-2019 Erythrocyte distribution width (RBC) [Ratio] 12.0 % Normal 11-14.5 [facility] Comment on above: Order Comment: Kailash stauffer: Isaiah Performed By: #### L 500.33304, L500.83105, L500.42441, L500.03746 #### [facility] [address] [place] [address]# [phone] Hematocrit (Bld) [Volume fraction] 37.4 % Normal 35.0-47.0 [facility] Comment on above: Order Comment: Campu s: M Performed By: #### L 500.47565, L500.13377, L500.40602, L500.18697 #### [facility] [address] [place] [address] Hemoglobin (Bld) [Mass/Vol] 12.2 g/dL Normal 11.5-15.5 [facility] Comment on above: Order Comment: Campu s: M Performed By: #### L 500.73479, L500.41675, L500.87352, L500.76263 #### [facility] [address] [place] [address] MCHC (RBC) [Mass/Vol] 32.6 g/dL Normal 32.0-36.0 [facility] Comment on above: Order Comment: Campu s: M Performed By: #### L 500.98886, L500.90332, L500.41744, L500.21459 #### [facility] [address] [place] [address] MCV (RBC) [Entitic vol] 91.9 fL Normal 80.0-99.0 [facility] Comment on above: Order Comment: Campu s: M Performed By: #### L 500.38501, L500.04584, L500.59499, L500.73205 #### [facility] [address] [place] [address] Nucleated RBC/100 WBC (Bld) [Ratio] 0.0 % Normal Less than 1 [facility] Comment on above: Order Comment: Campu s: M Performed By: #### L 500.69891, L500.03304, L500.47919, L500.70138 #### [facility] [address] [place] [address] Platelet mean volume (Bld) [Entitic vol] 8.7 fL Low 9.4-12.4 [facility] Comment on above: Order Comment: Campu s: M Performed By: #### L 500.46150, L500.11697, L500.72780, L500.34203 #### [facility] [address] [place] [address] Platelets (Bld) [#/Vol] 280 K/CU MM Normal 150-450 [facility] Comment on above: Order Comment: Campu s: M Performed By: #### L 500.82173, L500.89744, L500.18890, L500.15724 #### [facility] [address] [place] [address] RBC (Bld) [#/Vol] 4.07 M/CU MM Normal 3.90-5.30 [facility] Comment on above: Order Comment: Campu s: M Performed By: #### L 500.02744, L500.34275, L500.93645, L500.19209 #### [facility] [address] [place] [address] WBC (Bld) [#/Vol] 18.7 K/CUMM High 4.5-11.0 [facility] Comment on above: Order Comment: Campu s: M Performed By: #### L 500.28788, L500.43157, L500.14245, L500.12055 #### [facility] [address] [place] [address] CONS.ONCon 02-07-2019 CONS.ONC [facility] Patient Name: HAMLET TEIXEIRA [address] [place] [address] Date of : [address] [address] Unit Number: [id number] CONSULTATION-ONC Patient Status: ADM IN Attending Doctor: Sia Ashton MD Service Date: 02/07/19 1133 CONSULTATION-ONCOLOGY Referring Physician Margaret Luna MD Consulted Provider Mode eBll MD Source of Information Patient Reason for [...] She is . 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 Allergies Coded Allergies: NO KNOWN DRUG ALLERGIES (02/06/19) Home Medications Etonogestrel/Ethinyl Estradiol (Nuvaring Vaginal Ring) 1 EACH VAG.RING 1 EACH VG, Ref 0 (Reported) Entered as Reported by ALLIE GARCIA on 02/06/192049 Last Action: Reviewed on 02/06/192049 by ALLIE GARCIA Inpatient Medications Medications Current Sig/Hero Start time Last Medication Dose Route Stop [...] Time Mode Bell MD Verified/Reviewed by 02/07/19 1842 Shai Brown CNP Verified/Reviewed by 02/07/19 1218 [facility] CONSULTATION-ONC [facility] PROG [facility] 02-07-2019 PROG [facility] Patient Name: HAMLET TEIXEIRA [address] Date of : [address] [address] Unit Number: [id number] Progress Note-Hospitalist Patient Status: DIS IN Attending [...] Color normal, Skin warm, dry Medications Current Sig/Hero Start time Last Medication Dose Route Stop [...] TOMOGRAPHY - CT ANG THOR W/POST PROC 02/06 194 Report Impression - Status: SIGNED Entered: 02/06/20192001 [...] They did not recommend thrombophilia work-up. Consulted DIRECTOR OF EXTENSION WORK for removal of the NuvaRing. Patient is [...] Margaret Luna MD Verified/Reviewed by 02/11/19 0938 [facility] Progress Note-Hospitalist [facility] 02-06-2019 Anion gap [Moles/Vol] 7 mmol/L Normal 5-16 [facility] Comment on above: Order Comment: Campu s: M Performed By: #### L 500.46543, L500.53392, L500.78731 #### [facility] [place] [address] Calcium [Mass/Vol] 8.8 mg/dL Normal 8.5-10.1 [facility] Comment on above: Order Comment: Campu s: M Performed By: #### L 500.38834, L500.85339, L500.87215 #### [facility] [place] [address] Chloride [Moles/Vol] 106 mmol/L Normal 98-107 [facility] Comment on above: Order Comment: Campu s: M Performed By: #### L 500.85363, L500.61213, L500.41941 #### [facility] [place] [address] CO2 [Moles/Vol] 26 mmol/L Normal 21-32 [facility] Comment on above: Order Comment: Campu s: M Performed By: #### L 500.64216, L500.58449, L500.79343 #### [facility] [address] [place] [address] Creatinine [Mass/Vol] 0.820 mg/dL Normal 0.510- 0.[address] [facility] Comment on above: Order Comment: Campu s: M Result Comment: Kathy ents receiving either N-Acetylcysteine (NAC) or Metamizole prior to venipuncture, may have falsely depressed results. Performed By: #### L 500.18396, L500.47537, L500.29850 #### [facility] [address] [place] [address] Glucose [Mass/Vol] 83 mg/dL Normal 70-100 [facility] Comment on above: Order Comment: Campu s: M Result Comment: 70-1 00- Normal Fasting; 100-125 Impaired Fasting; greater than 126 on more than one result- Diabetes. ADA guidelines. Results may be falsely elevated after the administration of Sulfapyridine. Results may be falsely depressed after the administration of Sulfasalazine. Performed By: #### L 500.51122, L500.77278, L500.52723 #### [facility] [address] [place] [address] Potassium [Moles/Vol] 4.3 mmol/L Normal 3.5-5.1 [facility] Comment on above: Order Comment: Campu s: M Performed By: #### L 500.21653, L500.20927, L500.45745 #### [facility] [address] [place] [address] Sodium [Moles/Vol] 138 mmol/L Normal 136-145 [facility] Comment on above: Order Comment: Campu s: M Performed By: #### L 500.47977, L500.48407, L500.48113 #### [facility] [address] [place] [address] Urea nitrogen [Mass/Vol] 11 mg/dL Normal 7-26 [facility] Comment on above: Order Comment: Campu s: M Performed By: #### L 500.21966, L500.24987, L500.49979 #### [facility] [address] [place] [address] Urea nitrogen/Creatinine [Mass ratio] 14 mg/mg Low 15-24 [facility] Comment on above: Order Comment: Campu s: M Performed By: #### L 500.66231, L500.11526, L500.94529 #### [facility] [address] [place] [address] CBC W/DIFFon 02-06-2019 BASO ABS 0.10 K/CU MM Normal 0-0.2 [facility] Comment on above: Order Comment: Campu s: M Performed By: #### L 200.86741 #### [facility] [address] [place] [address] Basophils/100 WBC (Bld) 0.5 % Normal 0-2 [facility] Comment on above: Order Comment: Campu s: M Performed By: #### L 200.39082 #### [facility] [address] [place] [address] EOS ABS 0.20 K/CU MM Normal 0-0.5 [facility] Comment on above: Order Comment: Campu s: M Performed By: #### L 200.30394 #### [facility] [address] [place] [address] Eosinophils/100 WBC (Bld) 1.0 % Normal 0-5 [facility] Comment on above: Order Comment: Campu s: M Performed By: #### L 200.76958 #### [facility] [address] [place] [address] Erythrocyte distribution width (RBC) [Ratio] 12.2 % Normal 11-14.5 [facility] Comment on above: Order Comment: Campu s: M Performed By: #### L 200.21480 #### [facility] [address] [place] [address] Hematocrit (Bld) [Volume fraction] 42.5 % Normal 35.0-47.0 [facility] Comment on above: Order Comment: Campu s: M Performed By: #### L 200.57283 #### [facility] [address] [place] [address] Hemoglobin (Bld) [Mass/Vol] 13.5 g/dL Normal 11.5-15.5 [facility] Comment on above: Order Comment: Campu s: M Performed By: #### L 200.09730 #### [facility] [address] [place] [address] IMMATR GRAN ABS 0.10 K/CU MM Normal Less than 2 [facility] Comment on above: Order Comment: Campu s: M Performed By: #### L 200.28692 #### [facility] [address] [place] [address] IMMATURE GRAN % 0.6 % Normal Less than 2 [facility] Comment on above: Order Comment: Campu s: M Performed By: #### L 200.90861 #### [facility] [address] [place] [address] Lymphocytes (Bld) [#/Vol] 4.40 K/CU MM Normal 0.9-4.4 [facility] Comment on above: Order Comment: Campu s: M Performed By: #### L 200.48543 #### [facility] [address] [place] [address] Lymphocytes/100 WBC (Bld) 20.1 % Normal 20-40 [facility] Comment on above: Order Comment: Campu s: M Performed By: #### L 200.86203 #### [facility] [address] [place] [address] MCHC (RBC) [Mass/Vol] 31.8 g/dL Low 32.0-36.0 [facility] Comment on above: Order Comment: Campu s: M Performed By: #### L 200.03928 #### [facility] [address] [place] [address] MCV (RBC) [Entitic vol] 92.0 fL Normal 80.0-99.0 [facility] Comment on above: Order Comment: Campu s: M Performed By: #### L 200.86057 #### [facility] [address] [place] [address] MONO ABS 1.20 K/CU MM High 0.1-1.1 [facility] Comment on above: Order Comment: Campu s: M Performed By: #### L 200.57007 #### [facility] [address] [place] [address] Monocytes/100 WBC (Bld) 5.7 % Normal 2-10 [facility] Comment on above: Order Comment: Campu s: M Performed By: #### L 200.96952 #### [facility] [address] [place] [address] NEUTROPHIL ABS 15.60 K/CU MM High 2.0-8.3 [facility] Comment on above: Order Comment: Campu s: M Performed By: #### L 200.37249 #### [facility] [address] [place] [address] Neutrophils/100 WBC (Bld) 72.1 % Normal 45-75 [facility] Comment on above: Order Comment: Campu s: M Performed By: #### L 200.12126 #### [facility] [address] [place] [address] Nucleated RBC/100 WBC (Bld) [Ratio] 0.0 % Normal Less than 1 [facility] Comment on above: Order Comment: Campu s: M Performed By: #### L 200.53192 #### [facility] [address] [place] [address] Platelet mean volume (Bld) [Entitic vol] 8.6 fL Low 9.4-12.4 [facility] Comment on above: Order Comment: Campu s: M Performed By: #### L 200.24150 #### [facility] [address] [place] [address] Platelets (Bld) [#/Vol] 300 K/CU MM Normal 150-450 [facility] Comment on above: Order Comment: Campu s: M Performed By: #### L 200.27773 #### [facility] [address] [place] [address] RBC (Bld) [#/Vol] 4.62 M/CU MM Normal 3.90-5.30 [facility] Comment on above: Order Comment: Campu s: M Performed By: #### L 200.06605 #### [facility] [address] [place] [address] WBC (Bld) [#/Vol] 21.7 K/CUMM High 4.5-11.0 [facility] Comment on above: Order Comment: Campu s: M Performed By: #### L 200.76690 #### [facility] [address] [place] [address] CDLECHOon 02-06-2019 CDLECHO INTERPRETING PHYSICI AN: Tammy [...] ventricle has normal dimensions. The visually estimated [facility] PATIENT NAME: HAMLET TEIXEIRA [address] [facility] [address] MEDICAL REC #: [id number] [place] [address] ADMIT DATE: 02/06/19 DISCHARGE DATE: 02/08/19 ATTENDING [...] mitral and tricuspid regurgitation. Tammy Henson MD [id number] SSI File#: [id number] Verified/Reviewed by [id number] PATIENT NAME: HAMLET TEIXEIRA [facility] [address] MEDICAL REC #: [id number] [place] [address] ADMIT DATE: 02/06/19 DISCHARGE DATE: 02/08/19 ATTENDING PHY: Sia Ashton MD ECHOCARDIOGRAM REPORT Normal [facility] ECHOCARDIOGRAM REPORT Normal [facility] CT ANG THOR W/POST PROCon CT [...] PENA M.D. Signed By: SCOTT PENA M.D. [facility] PH[facility]ICIAN REPORT This is a preliminary report only, as the practitioner review and authentication has not occurred. [facility] ER PHYSICIAN ASSESSMENT RECORDS : FlexChartData Event Time: 02/06/2019 20:55 Status: Signed [facility] Hamlet Teixeira [[id number]] Attending Physician 1985 Chart (V2b) Chart created at 02/06/2019 20:14 by Ryan Saldana Chart closed at 02/06/2019 20:22 Entry in Emergency Department at 02/06/2019 16:42 Patient Name: Hamlet Teixeira Record Number: [id number] Date: 02/06/2019 20:14 Entered Department at: 02/06/2019 [...] Elements: Onset: Days ago; Timing: Sudden Onset; [facility] PATIENT NAME: HAMLET TEIXEIRA [address] MEDICAL REC #: [id number] [place] [address] EMERGENCY DEPARTMENT REPORT EMERGENCY DEPARTMENT PHYSICIAN Quality: [...] 21.7* andgt;------andlt; 300 / 42.5 / N:72.1 [facility] PATIENT NAME: HAMLET TEIXEIRA [address] MEDICAL REC #: [id number] [place] [address] EMERGENCY DEPARTMENT REPORT EMERGENCY DEPARTMENT PHYSICIAN BASO [...] (THORAX) FOR PE Imaging Study Obtained: CT [place]IA [place] W/POST PROC, Status:Signed Report Available CT NIV[place] W/POST PROC Ordering Physician: Jenna Cole 02/06/2019 5:45 PM COMPUTED TOMOGRAPHIC ANGIOGRAPHY OF THE THORAX Clinical Statement: Shortness of breath, chest pain, evaluate for pulmonary emboli TECHNIQUE: 1.25 mm thick axial images of the thorax were [facility] PATIENT NAME: HAMLET TEIXEIRA Dr. [address] MEDICAL REC #: [id number] [place] [address] EMERGENCY DEPARTMENT REPORT EMERGENCY DEPARTMENT PHYSICIAN obtained [...] to small emboli in the right lung. [facility] PATIENT NAME: HAMLET TEIXEIRA Dr. Pham MEDICAL REC #: [id number] [place] [address] EMERGENCY DEPARTMENT REPORT EMERGENCY DEPARTMENT PHYSICIAN ---- [...] for Admit: Acute multiple bilateral pulmonary emboli.. [facility] PATIENT NAME: HAMLET TEIXEIRA [address] MEDICAL REC #: [id number] [place] [address] EMERGENCY DEPARTMENT REPORT EMERGENCY DEPARTMENT PHYSICIAN Disposition: Admitted at 06 Feb 2019, 20:22. MSE completed. I was the primary ED attending.. 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 [employer] Patient: HAMLET TEIXEIRA Sex: F : 1985 Age: 33 yr Account No: [id number] Registration Date: 16:42 02/06/2019 Address: [address] [place] [address] Address: [place] [address] REGISTRATION ED Number: [id number] Marital Status: M Financial Class: PPO TRIAGE Priority: 3 - Urgent Complaint: Shortness of Breath Stated Complaint: PT PRESENTS WITH LEFT ARM PAIN AND SHORTNESS OF BREATH/ SENT BY PCP TO R/O PE Arrival Date: 02/06/2019 16:42 Triage Date: 02/06/2019 16:42 Mode of Arrival: *Privately Owned Vehicle Transfer From: * Home WC: N Language: Burkinan [facility] PATIENT NAME: HAMLET TEIXEIRA [address] MEDICAL REC #: [id number] [place] [address] EMERGENCY DEPARTMENT REPORT EMERGENCY DEPARTMENT PHYSICIAN Transport: Ambulatory/Walk In BED ST D In: 02/06/2019 17:18:29 02/06/2019 17:18:[address] [address] [facility] (Removed From) Out: 02/06/2019 17:18:56 02/06/2019 17:18:[address] C In: 02/06/2019 17:36:39 02/06/2019 17:36:[address] [facility] (Removed From) Out: 02/06/2019 18:09:24 02/06/2019 18:09:24 [facility] D46 In: 02/06/2019 18:09:24 02/06/2019 18:09:24 [facility] D46 (Removed From) Out: 02/06/2019 21:54:11 02/06/2019 21:54:11 [facility] PROVID[employer] PA-C Jenna A Chadima Provider Contact: 02/06/2019 17:39:07 KAC End: LORRIE AVENDANO Provider Contact: 02/06/2019 18:24:30 SERAFIN End: MD Ryan Saldana Provider Contact: 02/06/2019 20:05:12 MW End: IRINA GLEZ Provider Contact: 02/06/2019 21:32:56 ACU End: TRIAGE HISTORY ALLERGIES [facility] PATIENT NAME: HAMLET TEIXEIRA [address] Pham MEDICAL REC #: [id number] [place] [address] EMERGENCY DEPARTMENT REPORT EMERGENCY DEPARTMENT PHYSICIAN Allergic To: No Known Allergies - 02/06/2019 16:44 [facility] CURRENT MEDS Name: NUVARING VAGINAL RING - VAG 02/06/2019 19:04 SERAFIN Name: per pt 02/06/19 02/06/2019 19:04 SERAFIN Name: NAPROXEN 250MG TABLET - PO 02/06/2019 19:04 SERAFIN Freq: PRN ILLNESS Illness: *None 02/06/2019 16:44 [facility] PAST SURGERY HIST Surgery: Cholecystectomy 02/06/2019 16:44 [facility] PAST SOCIAL HIST Social History: Behavior age appropriate 02/06/2019 16:44 [facility] Social History: Communicates without difficulty 02/06/2019 16:44 [facility] Social History: Lives with family or significant other 02/06/2019 16:44 [facility] Social History: Alcohol - None 02/06/2019 16:44 [facility] Social History: Smoker-None 02/06/2019 16:44 [facility] Social History: Recreational Drugs - None 02/06/2019 16:44 [facility] Social History: Have you traveled in the past month? 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 Pham MEDICAL REC #: [id number] [place] [address] EMERGENCY DEPARTMENT REPORT EMERGENCY DEPARTMENT PHYSICIAN NURSING [...] I noticed my left shoulder hurting as well". Pt denies any SOB at rest, denies CP/N/V/D/fever/chills. Lungs CTA. Pt does not have red patch on leg at this time. NO edema or warmth, pedal pulses 1+ bilaterally. Respirations easy and unlabored .AOx4 02/06/2019 19:01 SERAFIN 02/06/2019 21:15 Report called to Rosie MCDONALD on 9M 02/06/2019 21:15 SERAFIN 02/06/2019 21:51 PT TAKEN TO THE FLOOR BY PATIENT CLERICAL ASSISTANT 02/06/2019 21:52 ACU TREATMENT 02/06/2019 20:13 Physician Call - Dr. ASHTON called at 200702/06/2019 20:14 [facility] 02/06/2019 20:13 Physician Call - Dr. ASHTON answered at 200702/06/2019 20:14 [facility] 02/06/2019 20:59 Medication Verification - Heparin dose verified at bedside with Candice Ocampo RN 02/06/2019 21:02 SERAFIN 02/06/2019 21:16 Medication Verification - Heparin dose verified at bedside with Tasha MCDONALD 02/06/2019 21:17 [facility] MEDICATIONS IV [facility] PATIENT NAME: HAMLET TEIXEIRA [address] Pham MEDICAL REC #: [id number] [place] [address] EMERGENCY DEPARTMENT REPORT EMERGENCY DEPARTMENT PHYSICIAN IV [...] Sa02: 99 Room Air 02/06/2019 19:02 SERAFIN [facility] PATIENT NAME: HAMLET TEIXEIRA [address] MEDICAL REC #: [id number] [place] [address] EMERGENCY DEPARTMENT REPORT EMERGENCY DEPARTMENT PHYSICIAN VS-Pain Time: 02/06/2019 19:01 Pain Level: 6 02/06/2019 19:02 SERAFIN VS-GCS Time: 02/06/2019 19:01 02/06/2019 19:02 SERAFIN VS-HT/WT Time: 02/06/2019 19:01 02/06/2019 19:02 SERAFIN VS-Visual Time: 02/06/2019 19:01 02/06/2019 19:02 SERAFIN VS-FHT Time: 02/06/2019 19:01 02/06/2019 19:02 SERAFNI VS-Notes Time: 02/06/2019 19:01 MAP 104 02/06/2019 [...] (IV)*(30mg/ml) DOSE: 15 mg IV 02/06/2019 20:46 [facility] PATIENT NAME: HAMLET TEIXEIRA [address] Pham MEDICAL REC #: [id number] [place] [address] EMERGENCY DEPARTMENT REPORT EMERGENCY DEPARTMENT PHYSICIAN N/A [...] Ryan Saldana Noted Time: 02/06/2019 20:39 SERAFIN PRODUCT DEVELOPMENT SCIENTIST ORDER: GFRP 02/06/2019 18:32 None Ordered: 02/06/2019 18:32 Completed Time: 02/06/2019 18:32 Results Time: 02/06/2019 18:32 PRODUCT DEVELOPMENT SCIENTIST ORDER: POCTROP 02/06/2019 18:22 None Ordered: 02/06/2019 18:22 Completed Time: 02/06/2019 18:22 Results Time: 02/06/2019 18:22 IV hep lock 02/06/2019 18:03 N/A Ordered: 02/06/2019 17:45 By Jenna Cole Completed Time: 02/06/2019 18:03 By Jenna Cole IV NS bolus 1L over 60 min 02/06/2019 19:01 [facility] PATIENT NAME: HAMLET TEIXEIRA [address] Pham MEDICAL REC #: [id number] [place] [address] EMERGENCY DEPARTMENT REPORT EMERGENCY DEPARTMENT PHYSICIAN N/A [...] 02/06/2019 18:03 ANF Results Time: 02/06/2019 18:32 [facility] PATIENT NAME: HAMLET TEIXEIRA [address] Pham MEDICAL REC #: [id number] [place] [address] EMERGENCY DEPARTMENT REPORT EMERGENCY DEPARTMENT PHYSICIAN Duplex venous lower limb 02/06/2019 17:45 N/A Ordered: 02/06/2019 17:45 By Jnena Cole Question: How is patient transported? (A [...] To: *Bed Type - Telemetry Admit Physician: [facility] PRESCRIPTIONS CHARGES 0.9% NS 1000cc bag QTY @ 1 02/06/2019 19:03 SERAFIN Auto Generated Charge SIGNATURE Ryan Saldana MD [facility] CHAVO ROBERTSP Jenna RENTERIA TADEO BLACKMON [facility] PATIENT NAME: ALEYDA TEIXEIRAFANY Dudley [address] Pham MEDICAL REC #: [id number] [place] [address] EMERGENCY DEPARTMENT REPORT EMERGENCY DEPARTMENT PHYSICIAN XI AVENDANO SERAFIN [facility] PATIENT NAME: HAMLET TEIXEIRA [address] [place] [address] Dr. Pham MEDICAL REC #: [id number] [place] [address] EMERGENCY DEPARTMENT REPORT EMERGENCY DEPARTMENT PHYSICIAN Normal [facility] GFR ESTon 02-06-2019 IF AMER Greater than 60 [facility] Comment on above: Order Comment: Campu s: M Performed By: #### L 500.48768, L500.92043, L500.29823 #### [facility] [address] [place] [address] IF non-AFR AMER Greater than 60 [facility] Comment on above: Order Comment: Campu s: M Performed By: #### L 500.94290, L500.52450, L500.98833 #### [facility] [address] [place] [address] HCGon 02-06-2019 HCG Qn Negative Normal NEGATIVE [facility] Comment on above: Order Comment: Campu s: M Performed By: #### L 500.03927, L500.55257, L500.30297 #### [facility] [address] [place] [address] [email or web address] 02-06-2019 Admission-H&P [facility] HP.IMS.ADM [facility] Patient Name: HAMLET TEIXEIRA [facility] Date of : [address] [address] Unit Number: [id number] Admission-HandP Patient Status: REG ER Attending Doctor: [...] her and son. She works as a [employer]. She does work third shift as a [...] Other Med Notes Laboratory Tests 02/06 02/06 1807 1759 Chemistry Sodium (136 - 145 MMOL/L) 138 [...] Recent Impressions COMPUTERIZED TOMOGRAPHY - CT ANG THOR W/POST PROC 02/06 194 Report Impression - Status: SIGNED Entered: 02/06/20192001 [...] Time Sia Ashton MD Verified/Reviewed by 02/06/[address] [facility] TROPONIN I POCon 02-06-2019 Troponin I.cardiac [Mass/Vol] 0.00 ng/mL Normal 0.0-0.06 [facility] Comment on above: Result Comment: 0.0 - 0.06 NG/ML - NON-DIAGNOSTIC (REFERENCE RANGE) 0.07 - 0.59 NG/ML - INDETERMINATE Greater than or equal to 0.6 NG/ML - INDICATIVE OF MYOCARDIAL DAMAGE VLVDon 02-06-2019 VENOUS DUPLEX REPORT Normal [facility] VLVD VASCULAR MEDSTREAMIN G REPORT Patient: HAMLET TEIXEIRA Account [id number] Ordering Phy: MR: [id number] Reason for Visit: PULMONARY EMBOLISM Date of [...] Full Report is available via link to [employer] in PCI under [facility] Image Viewer." * [facility] PATIENT NAME: HAMLET TEIXEIRA [address]am MEDICAL REC #: [id number] [place] [address] ADMIT DATE: 02/06/19 DISCHARGE DATE: VENOUS DUPLEX REPORT ATTENDING PHY: Sia Ashton MD Electronically Signed by: Rupesh Sharp MD Esign Date: 02/07/[address] [facility] CBC W/DIFFon 10-11-2018 BASO ABS 0.10 K/CU MM Normal 0-0.2 [facility] Comment on above: Performed By: #### L 200.53682 #### [facility] [address] [place] [address] Basophils/100 WBC (Bld) 0.8 % Normal 0-2 [facility] Comment on above: Performed By: #### L 200.93739 #### [facility] [address] [place] [address] EOS ABS 0.10 K/CU MM Normal 0-0.5 [facility] Comment on above: Performed By: #### L 200.26994 #### [facility] [address] [place] [address] Eosinophils/100 WBC (Bld) 1.3 % Normal 0-5 [facility] Comment on above: Performed By: #### L 200.20453 #### [facility] [address] [place] [address] Erythrocyte distribution width (RBC) [Ratio] 12.0 % Normal 11-14.5 [facility] Comment on above: Performed By: #### L 200.13759 #### [facility] [address] [place] [address] Hematocrit (Bld) [Volume fraction] 37.9 % Normal 35.0-47.0 [facility] Comment on above: Performed By: #### L 200.49506 #### [facility] [address] [place] [address] Hemoglobin (Bld) [Mass/Vol] 12.5 g/dL Normal 11.5-15.5 [facility] Comment on above: Performed By: #### L 200.42226 #### [facility] [address] [place] [address] IMMATR GRAN ABS 0.00 K/CU MM Normal Less than 2 [facility] Comment on above: Performed By: #### L 200.53979 #### [facility] [address] [place] [address]# [phone] IMMATURE GRAN % 0.4 % Normal Less than 2 [facility] Comment on above: Performed By: #### L 200.67266 #### [facility] [address] [place] [address]# [phone] Lymphocytes (Bld) [#/Vol] 3.20 K/CU MM Normal 0.9-4.4 [facility] Comment on above: Performed By: #### L 200.68597 #### [facility] [address] [place] [address] Lymphocytes/100 WBC (Bld) 31.3 % Normal 20-40 [facility] Comment on above: Performed By: #### L 200.70387 #### [facility] [address] [place] [address] MCHC (RBC) [Mass/Vol] 33.0 g/dL Normal 32.0-36.0 [facility] Comment on above: Performed By: #### L 200.54732 #### [facility] [address] [place] [address] MCV (RBC) [Entitic vol] 90.0 fL Normal 80.0-99.0 [facility] Comment on above: Performed By: #### L 200.69831 #### [facility] [address] [place] [address] MONO ABS 0.50 K/CU MM Normal 0.1-1.1 [facility] Comment on above: Performed By: #### L 200.09564 #### [facility] [address] [place], [place] [address] Monocytes/100 WBC (Bld) 4.7 % Normal 2-10 [facility] Comment on above: Performed By: #### L 200.35644 #### [facility] [address] [place] [address] NEUTROPHIL ABS 6.30 K/CU MM Normal 2.0-8.3 [facility] Comment on above: Performed By: #### L 200.80375 #### [facility] [address] [place] [address] Neutrophils/100 WBC (Bld) 61.5 % Normal 45-75 [facility] Comment on above: Performed By: #### L 200.79097 #### [facility] [address] [place] [address] Nucleated RBC/100 WBC (Bld) [Ratio] 0.0 % Normal Less than 1 [facility] Comment on above: Performed By: #### L 200.66512 #### [facility] [address] [place] [address] Platelet mean volume (Bld) [Entitic vol] 9.2 fL Low 9.4-12.4 [facility] Comment on above: Performed By: #### L 200.34804 #### [facility] [address] [place] [address] Platelets (Bld) [#/Vol] 321 K/CU MM Normal 150-450 [facility] Comment on above: Performed By: #### L 200.71886 #### [facility] [address] [place] [address] RBC (Bld) [#/Vol] 4.21 M/CU MM Normal 3.90-5.30 [facility] Comment on above: Performed By: #### L 200.99231 #### [facility] [address] [place], [place] [address] WBC (Bld) [#/Vol] 10.3 K/CUMM Normal 4.5-11.0 [facility] Comment on above: Performed By: #### L 200.42321 #### [facility] [address] [place] [address] CMPon 10-11-2018 Albumin [Mass/Vol] 3.2 g/dL Normal 3.2-5.0 [facility] Comment on above: Performed By: #### L 500.74485, L500.92421, L500.57457, L500.87274 #### [facility] [address] [place] [address] Albumin/Globulin [Mass ratio] 0.9 {ratio} Normal 0.8-2.0 [facility] Comment on above: Performed By: #### L 500.43612, L500.56307, L500.52292, L500.50119 #### [facility] [address] [place] [address] ALK PHOS 54 U/L Normal 45-117 [facility] Comment on above: Performed By: #### L 500.90233, L500.69524, L500.35757, L500.26066 #### [facility] [address] [place] [address] ALT [Catalytic activity/Vol] 15 U/L Normal 13-61 [facility] Comment on above: Result Comment: RESU LTS MAY BE FALSELY DEPRESSED AFTER THE ADMINISTRATION OF SULFASALAZINE AND/OR SULFAPYRIDINE. Performed By: #### L 500.41575, L500.28826, L500.90575, L500.45499 #### [facility] [address] [place] [address] Anion gap [Moles/Vol] 8 mmol/L Normal 5-16 [facility] Comment on above: Performed By: #### L 500.92477, L500.06386, L500.26128, L500.64579 #### [facility] [place] [address] BILI TOTAL 0.3 MG/DL Normal 0.2-1.0 [facility] Comment on above: Performed By: #### L 500.86381, L500.92391, L500.69624, L500.57511 #### [facility] [place] [address] Calcium [Mass/Vol] 8.3 mg/dL Low 8.5-10.1 [facility] Comment on above: Performed By: #### L 500.67279, L500.20572, L500.47118, L500.11724 #### [facility] [place] [address] Chloride [Moles/Vol] 113 mmol/L High 98-107 [facility] Comment on above: Performed By: #### L 500.29480, L500.44983, L500.60176, L500.17602 #### [facility] [place] [address] CO2 [Moles/Vol] 24 mmol/L Normal 21-32 [facility] Comment on above: Performed By: #### L 500.77361, L500.44353, L500.87588, L500.54721 #### [facility] [place] [address] Creatinine [Mass/Vol] 0.909 mg/dL Normal 0.510- 0.[address] [facility] Comment on above: Result Comment: Kathy ents receiving either N-Acetylcysteine (NAC) or Metamizole prior to venipuncture, may have falsely depressed results. Performed By: #### L 500.00722, L500.64419, L500.02813, L500.12924 #### [facility] [place] [address] Globulin (S) [Mass/Vol] 3.6 g/dL Normal 2.2-4.2 [facility] Comment on above: Performed By: #### L 500.96712, L500.99674, L500.34151, L500.41208 #### [facility] [address] [place] [address] Glucose [Mass/Vol] 88 mg/dL Normal 70-100 [facility] Comment on above: Result Comment: 70-1 00- Normal Fasting; 100-125 Impaired Fasting; greater than 126 on more than one result- Diabetes. ADA guidelines. Results may be falsely elevated after the administration of Sulfapyridine. Results may be falsely depressed after the administration of Sulfasalazine. Performed By: #### L 500.10377, L500.22811, L500.35548, L500.66245 #### [facility] [address] [place] [address] Potassium [Moles/Vol] 4.6 mmol/L Normal 3.5-5.1 [facility] Comment on above: Performed By: #### L 500.02780, L500.88559, L500.01164, L500.67277 #### [facility] [place] [address] Protein [Mass/Vol] 6.8 g/dL Normal 6.0-8.5 [facility] Comment on above: Performed By: #### L 500.60745, L500.66582, L500.59230, L500.07481 #### [facility] [address] [place] [address] SGOT (AST) 8 U/L Normal 8-34 [facility] Comment on above: Result Comment: RESU LTS MAY BE FALSELY DEPRESSED AFTER THE ADMINISTRATION OF SULFASALAZINE AND/OR SULFAPYRIDINE. Performed By: #### L 500.55640, L500.69103, L500.95480, L500.04973 #### [facility] [address] [place] [address] Sodium [Moles/Vol] 145 mmol/L Normal 136-145 [facility] Comment on above: Performed By: #### L 500.96688, L500.92329, L500.89067, L500.91523 #### [facility] [address] [place] [address] Urea nitrogen [Mass/Vol] 9 mg/dL Normal 7-26 [facility] Comment on above: Performed By: #### L 500.43881, L500.36930, L500.91977, L500.13065 #### [facility] [address] [place] [address] Urea nitrogen/Creatinine [Mass ratio] 10 mg/mg Low 15-24 [facility] Comment on above: Performed By: #### L 500.18374, L500.59536, L500.77921, L500.53982 #### [facility] [address] [place] [address] GFR ESTon 10-11-2018 IF AMER Greater than 60 Normal [facility] Comment on above: Performed By: #### L 500.60277, L500.98374, L500.06371, L500.95490 #### [facility] [address] [place] [address] IF non-AFR AMER Greater than 60 Normal [facility] Comment on above: Performed By: #### L 500.91049, L500.20005, L500.83155, L500.00951 #### [facility] [address] [place] [address] LIPIDon 10-11-2018 Cholesterol [Mass/Vol] 180 mg/dL Normal 0-199 [facility] Comment on above: Performed By: #### L 500.16926, L500.93604, L500.70483, L500.70379 #### [facility] [address] [place] [address] Cholesterol in HDL [Mass/Vol] 51 mg/dL Normal [place] 40 [facility] Comment on above: Result Comment: Kathy ents receiving Metamizole prior to venipuncture, may have falsely depressed results. Performed By: #### L 500.43545, L500.65499, L500.87879, L500.03196 #### [facility] [address] [place] [address] Cholesterol in LDL [Mass/Vol] 90 mg/dL Normal 0-129 [facility] Comment on above: Result Comment: ___C HOLESTEROL/HDL RATIO RISK___ CHD RISK = Total CHOL LDL HDL (CHOL/HDL) Recommended <200 <130 >35 <3.4 Borderline 200-239 130-159 3.4-4.99 High >240 >160 >5.0 Performed By: #### L 500.72512, L500.84524, L500.11208, L500.47983 #### [facility] [place] [address] Triglyceride [Mass/Vol] 195 mg/dL High 30-149 [facility] Comment on above: Result Comment: Kathy ents receiving either N-Acetylcysteine (NAC) or Metamizole prior to venipuncture, may have falsely depressed results. Performed By: #### L 500.11705, L500.07019, L500.99359, L500.64472 #### [facility] [place] [address] TSHon 10-11-2018 TSH Qn 1.660 UIU/ML Normal 0.358-3.[address] [facility] Comment on above: Result Comment: 3rd generation ultra sensitive TSH Performed By: #### L 500.49115, L500.26339, L500.81660, L500.77555 #### [facility] [place] [id number] HCG,Totalon 07-17-2018 HCG Qn 8938.0 m[IU]/mL Normal [facility] Comment on above: Result Comment: Male < or = 1Non- female 1- 3Gestational Age:0.2-1 Week 5 - 501-2 Weeks 50 - 5002-3 Weeks 100 - 96062-4 Weeks 500 - 001386-4 weeks 1000 - 048730-3 weeks 87423 - 100,0006-8 weeks 91525 - 200,0002-3 months 09393 - 100,000 Performed By: #### H ####[place] [address] Patient Summary Documentson 10-29-2017 Patient Summary Documents Normal [facility] ([place]) Vital Signs Date Time Vital Sign Value Performing Clinician Facility 05-13-2025 09:17-0400 Body temperature 98 [degF] Dr. Ortega Medrano MD Work Phone: [facility] 05-13-2025 09:17-0400 Diastolic blood pressure 63 mm[Hg] Dr. Ortega Medrano MD Work Phone: [phone] [place] [address] 05-13-2025 09:17-0400 Heart rate 74 /min Dr. Ortega Medrano MD Work Phone: 5(173)[phone] [place] [address] 05-13-2025 09:17-0400 Respiratory rate 16 /min Dr. Ortega Medrano MD Work Phone: [facility] 05-13-2025 09:17-0400 SaO2% (BldA) [Mass fraction] 98 % Dr. Ortega Medrano MD Work Phone: [facility] 05-13-2025 09:17-0400 Systolic blood pressure 112 mm[Hg] Dr. Ortega Medrano MD Work Phone: [facility] 05-12-2025 16:47-0400 Body height 160.[address] Ortega Medrano MD Work Phone: [facility] 05-12-2025 16:47-0400 Body mass index (BMI) [Ratio] 40.4 kg/m2 Dr. Ortega Medrano MD Work Phone: [facility] 05-12-2025 16:47-0400 Body weight 103.[address] Ortega Medrano MD Work Phone: 1(955)[phone] [place] [address] 05-12-2025 16:00-0400 Inhaled oxygen flow rate 3 L/min Dr. Ortega Medrano MD Work Phone: [facility] 04-17-2025 09:28-0400 Body height 160.[address] Ortega Medrano MD Work Phone: [phone] [place] [address] 04-17-2025 09:28-0400 Body mass index (BMI) [Ratio] 40.2 kg/m2 Dr. Ortega Medrano MD Work Phone: [facility] 04-17-2025 09:28-0400 Body temperature 98.5 [degF] Dr. Ortega Medrano MD Work Phone: [facility] 04-17-2025 09:28-0400 Body weight 103.[address] Ortega Medrano MD Work Phone: [facility] 04-17-2025 09:28-0400 Diastolic blood pressure 87 mm[Hg] Dr. Ortega Medrano MD Work Phone: [facility] 04-17-2025 09:28-0400 Heart rate 63 /min Dr. Ortega Medrano MD Work Phone: [facility] 04-17-2025 09:28-0400 Respiratory rate 18 /min Dr. Ortega Medrano MD Work Phone: [facility] 04-17-2025 09:28-0400 SaO2% (BldA) [Mass fraction] 98 % Dr. Ortega Medrano MD Work Phone: [facility] 04-17-2025 09:28-0400 Systolic blood pressure 136 mm[Hg] Dr. Ortega Medrano MD Work Phone: [facility] 03-09-2025 14:23-0400 Body height 160 cm Baltazar Courtney MD Work Phone: [facility] 03-09-2025 14:23-0400 Body mass index (BMI) [Ratio] 40.57 kg/m2 Baltazar Courtney MD Work Phone: [facility] 03-09-2025 14:23-0400 Body temperature 97.11 [degF] Baltazar Courtney MD Work Phone: [facility] 03-09-2025 14:23-0400 Body weight 103.87 kg Baltazar Courtney MD Work Phone: [facility] 03-09-2025 14:23-0400 Diastolic blood pressure 82 mm[Hg] Baltazar Courtney MD Work Phone: [facility] Comment on above: Dr. Courtney notified of blood pressure 03-09-2025 14:23-0400 Heart rate 96 /min Baltazar Courtney MD Work Phone: [facility] 03-09-2025 14:23-0400 Respiratory rate 14 /min Baltazar Courtney MD Work Phone: [facility] 03-09-2025 14:23-0400 SaO2% (BldA) [Mass fraction] 98 % Baltazar Courtney MD Work Phone: [facility] 03-09-2025 14:23-0400 Systolic blood pressure 148 mm[Hg] Baltazar Courtney MD Work Phone: [facility] Comment on above: Dr. Courtney notified of blood pressure 07-30-2024 15:18-0500 Body mass index (BMI) [Ratio] 38.51 kg/m2 Yordy Andersen MD Work Phone: [facility] 07-30-2024 15:18-0500 Body temperature 98.6 [degF] Yordy Andersen MD Work Phone: [facility] 07-30-2024 15:18-0500 Body weight 98.6 kg Yordy Andersen MD Work Phone: [facility] 07-30-2024 15:18-0500 Diastolic blood pressure 80 mm[Hg] Yordy Andersen MD Work Phone: [facility] 07-30-2024 15:18-0500 Heart rate 80 /min Yordy Andersen MD Work Phone: [facility] 07-30-2024 15:18-0500 Respiratory rate 21 /min Yordy Andersen MD Work Phone: [facility] 07-30-2024 15:18-0500 SaO2% (BldA) [Mass fraction] 98 % Yordy Andersen MD Work Phone: [facility] 07-30-2024 15:18-0500 Systolic blood pressure 122 mm[Hg] Yordy Andersen MD Work Phone: [facility] 07-29-2024 15:01-0500 Body height 160 cm Gómez Younger MD Work Phone: [facility] 07-29-2024 15:01-0500 Body mass index (BMI) [Ratio] 37.98 kg/m2 Gómez Younger MD Work Phone: [facility] 07-29-2024 15:01-0500 Body temperature 98.01 [degF] Gómez Younger MD Work Phone: [facility] 07-29-2024 15:01-0500 Body weight 97.25 kg Gómez Younger MD Work Phone: [facility] 07-29-2024 15:01-0500 Diastolic blood pressure 78 mm[Hg] Gómez Younger MD Work Phone: [facility] 07-29-2024 15:01-0500 Systolic blood pressure 118 mm[Hg] Gómez Younger MD Work Phone: [facility] 07-07-2024 14:13-0500 Body height 160 cm Gómez Younger MD Work Phone: [facility] 07-07-2024 14:13-0500 Body mass index (BMI) [Ratio] 36.56 kg/m2 Gómez Younger MD Work Phone: [facility] 07-07-2024 14:13-0500 Body temperature 98.71 [degF] Gómez Younger MD Work Phone: [facility] 07-07-2024 14:13-0500 Body weight 93.62 kg Gómez Younger MD Work Phone: [facility] 07-07-2024 14:13-0500 Diastolic blood pressure 82 mm[Hg] Gómez Younger MD Work Phone: [facility] 07-07-2024 14:13-0500 Systolic blood pressure 118 mm[Hg] Gómez Younger MD Work Phone: [facility] 07-25-2023 09:03-0500 Body height 160.[address] Sommer Flynn Work Phone: [facility] 07-25-2023 08:55-0500 Body mass index (BMI) [Ratio] 39.2 kg/m2 Dr. Sommer Flynn Work Phone: [facility] 07-25-2023 08:55-0500 Body weight 100.[address] Sommer Flynn Work Phone: [facility] 07-25-2023 08:55-0500 Diastolic blood pressure 82 mm[Hg] Dr. Sommer Flynn Work Phone: [facility] 07-25-2023 08:55-0500 Systolic blood pressure 128 mm[Hg] Dr. Sommer Flynn Work Phone: [facility] Encounters Encounter Date Encounter Type Care Provider Facility Start: 05-22-2025 End: 05-22-[address] Gómez Casiano MD -[facility] Work Phone: Start: 05-22-2025 End: 05-22-[address] Ortega Medrano MD Work Phone: [facility] Start: 05-13-2025 Non-patient / Non-visit Dr. Gómez Casiano MD -[facility] Start: 05-12-2025 End: 05-13-2025 ambulatory Gómez Casiano Facility:[facility] Start: 05-12-2025 End: 05-13-2025 Evaluation and management of inpatient Dr. Gómez Casiano MD [facility] Work Phone: Start: 05-12-2025 End: 05-13-[address] Ortega Medrano MD Work Phone: -[facility] Start: 05-12-2025 ambulatory Gómez Casiano [place] [facility] Start: 05-12-2025 Non-patient / Non-visit Dr. Gómez Casiano MD -[facility] Start: 04-23-2025 End: 04-23-[address] Ortega Medrano MD Work Phone: -Ultrasound [facility] Start: 04-23-2025 End: 04-23-[address] Gómez Casiano MD -Ultrasound [facility] Work Phone: Start: 04-23-2025 End: 04-23-2025 ambulatory Gómez Casiano Facility:[facility] Start: 04-17-2025 End: 04-17-[address] Gómez Casiano MD -[facility] Work Phone: Start: 04-17-2025 End: 04-17-[address] Ortega Medrano MD Work Phone: [facility] Start: 03-16-2025 End: 03-16-2025 Patient encounter procedure Baltazar Courtney MD Work Phone: General Surgery Comment on above: Multinodular goiter (Primary Dx) Start: 03-16-2025 End: 03-16-2025 ambulatory ORTEGA MEDRANO Facility:[facility] Start: 03-09-2025 End: 03-09-2025 Patient encounter procedure Baltazar Courtney MD Work Phone: General Surgery Comment on above: Multinodular goiter (Primary Dx) Start: 03-09-2025 End: 03-09-2025 ambulatory BALTAZAR COURTNEY Facility:[facility] Start: 03-04-2025 End: 03-04-2025 Chart abstracting Baltazar Courtney MD Work Phone: General Surgery Start: 02-12-2025 End: 02-12-[address] Sommer Flynn MD Work Phone: [facility] Work Phone: Start: 02-12-2025 End: 02-12-[address] Ortega Medrano MD -Ultrasound [facility] Work Phone: Start: 02-12-2025 End: 02-12-2025 ambulatory Ortega Medrano Facility:[facility] Start: 02-05-2025 End: 02-05-[address] Sommer Flynn MD Work Phone: [facility] Work Phone: Start: 02-05-2025 End: 02-05-[address] Ortega Medrano MD -Laboratory [facility] Start: 02-05-2025 End: 02-05-2025 ambulatory Ortega Medrano Facility:[facility] Start: 01-15-2025 Encounter for genera l adult medical examination without abnormal findings Sommer Flynn [facility] Start: 01-15-2025 ambulatory Sommer Flynn Facilit y:[facility] Start: 11-15-2024 Registered [facility] -Laboratory Work Phone: Start: 11-15-2024 ambulatory Health Risk Assessment Facility:[facility] Start: 10-25-2024 ambulatory Health Risk Assessment Facility:[facility] Start: 10-25-2024 Registered [employer] [facility]IS K ASSESSMENT -Employee [facility] Start: 10-23-2024 Registered [employer] [facility] K [facility]ESS[facility] -[facility] Start: 10-23-2024 ambulatory Health Risk Assessment Facility:[facility] Start: 07-30-2024 End: 07-30-2024 ambulatory SOMMER FLYNN Facility:[facility] Start: 07-30-2024 End: 07-30-2024 Office outpatient new 30 minutes Yordy Andersen MD Work Phone: [facility] Comment on above: Acute non-recurrent sinusitis, unspecified location (Primary Dx) Start: 07-29-2024 End: 07-29-2024 ambulatory GÓMEZ YOUNGER [facility] Start: 07-29-2024 End: 07-29-2024 Postop follow up visit related to original px Gómez Younger MD Work Phone: [facility] [place] Comment on above: Perianal abscess (Pr imary Dx) Start: 07-28-2024 Encounter for gynecological examination (general) (routine) without abnormal findings Lali Gallagher [facility] Start: 07-28-2024 End: 07-28-2024 ambulatory Sommer Flynn [place] Start: 07-28-2024 End: 07-28-2024 ambulatory Sommer Flynn Facility:[facility] Start: 07-07-2024 End: 07-07-2024 Patient encounter procedure Gómez Younger MD Work Phone: [facility] Comment on above: Perianal abscess (Pr imary Dx) Start: 07-07-2024 End: 07-07-2024 ambulatory GÓMEZ YOUNGER [facility] Start: 09-19-2023 End: 09-19-[address] Sommer Flynn Work Phone: [facility] Work Phone: Start: 09-19-2023 End: 09-19-[address] Sommer Flynn Work Phone: [facility]-Ultrasound, [facility] Work Phone: Start: 07-25-2023 End: 07-25-[address] Sommer Flynn Work Phone: [facility] Work Phone: Start: 07-17-2018 End: 07-18-2018 Patient encounter procedure KAREN Colon [facility] Start: 10-29-2017 End: 10-29-2017 Emergency department patient visit SOMMER FLYNN Facility:A Procedures Date Procedure Procedure Detail Performing Clinician Start: 05-13-[address] Ortega Medrano MD Work Phone: Start: 05-13-[address] Ortega Medrano MD Work Phone: Start: 05-12-[address] Ortega Medrano MD Work Phone: Start: 04-23-2025 Ultrasonography of thyroid and parathyroid Dr. Ortega Medrano MD Work Phone: Start: 03-16-2025 US THYROID BIOPSY RIGHT (POC) SURG USE ONLY Baltazar Courtney MD Work Phone: Start: 02-12-2025 US scan of thyroid Dr. Sommer Flynn MD Work Phone: Start: 02-05-[address] Sommer Flynn MD Work Phone: Comment on above: According to the National Academy of Cli nical Biochemistry,the reference interval for Thyroglobulin (TG) should berelated to euthyroid patients and not for patients whounderwent thyroidectomy. TG reference intervals for thesepatients depend on the residual mass of the thyroid tissueleft after surgery. Establishing a post-operative baselineis recommended. The assay limit of quantitation is 0.1ng/mLThyroglobulin measured by [employer] [employer] Start: 02-05-[address] Isaiah Flynn MD Work Phone: Comment on above: Thyroglobulin Antibody measured by [employer] ComponentsMethodologyIt should be noted that the presence of thyroglobulinantibodies may not be pathogenic nor diagnostic, especiallyat very low levels. The assay jewelry sales coordinator has found thatfour percent of individuals without [...] the productionof interferon gamma. Chemiluminescence immunoassaymethodologyPerformed at: [facility] [address] [id number] Director: Rodrigo Edmondson PhD, Phone: [phone] Start: 09-19-[address] Sommer Flynn Work Phone: Start: 02-06-2019 Ecg routine ecg w/least 12 lds i&r only History of thyroidectomy Status post total thyroidectomy Dr. Ortega Medrano MD Work Phone: Comment on above: Patient 39-year-old female who makes fir st postoperative visit following total thyroidectomy with intraoperative nerve monitoring on 05/12/2025. She is doing remarkably well postoperatively and appears to be benefiting from newfound energy levels. She is also well-healing on exam. 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 Additionally reviewed the pathology from her operation which showed only evidence of lymphocytic thyroiditis and some hyperplasia but was overall ruled "benign". It is unclear to me how she had a prior FNA biopsy given a [place] 5 diagnosis and our final pathology appears clearly benign. For her part Mrs. Teixeira states she remains thankful for the course of action that was taken and the way she feels presently. Will plan to have a second follow-up visit 5 weeks postop with pre-clinic laboratories to determine if her thyroid hormone supplementation is appropriate. History of thyroidectomy Status post total thyroidectomy Dr. Gómez Casiano MD History of thyroidectomy Status post total thyroidectomy Dr. Gómez Casiano MD Plan of Treatment Date Care Activity Detail Author Start: 2061 RSV Immunization for Adults (1 - 1-dose 75+ series) RSV Immunization for Adults (1 - 1-dose 75+ series) [facility] Start: 2036 Zoster Vaccines (1 of 2) Zoste r Vaccines (1 of 2) [facility] Start: 03-24-2030 DTaP/Tdap/Td Vaccine s (5 - Td or Tdap) DTaP/Tdap/Td Vaccines (5 - Td or Tdap) [facility] Start: 03-24-2030 Urine microalbumin profile [facility] Start: 05-13-2025 Patient discharge [facility] Start: 05-12-2025 Application of intermittent pneumatic compression device [facility] Start: 05-12-2025 Following clinical pathway protocol [facility] Start: 05-12-2025 Application of ice collar, cap or bag [facility] Start: 05-12-2025 Elevation of head of bed [facility] Start: 05-12-2025 Admission procedure [facility] Start: 05-12-2025 Anes esoph thyrd lar ynx trach & lymph neck 1yr ANESTH NECK ORGAN 1YR/> [facility] Start: 05-12-2025 Thyroidectomy total/complete REMOVAL OF THYROID [facility] Start: 04-27-2025 Influenza vaccination Influenza Vacc ine (#1) [facility] Start: 03-30-2025 End: 03-30-2025 Patient encounter procedure 03/30/2025 2:45 PM EDT Office Visit General Surgery [address] [place] [id number] Baltazar Courtney MD [address] [place] [address] 2 wk f/u-FNA results General Surgery Comment on above: 2 wk f/u-FNA results Start: 03-16-2025 End: 03-16-2025 Patient encounter procedure 03/16/2025 1:30 PM EDT Office Visit General Surgery [address] [place] [id number] Baltazar Courtney MD [address] [place] [id number] PROCEDURE: FNA Right thyroid x 2. Consent signed. [facility] General Surgery Comment on above: PROCEDURE: FNA Right thyroid x 2. Consent signed. [facility] Start: 03-09-2025 End: 03-09-2025 Patient encounter procedure 03/09/2025 2:45 PM EDT Office Visit [facility] [address] [facility] [place] [place] [id number] Baltazar Courtney MD [address] [place], [place] [id number] CONSULT: THYROID NODULE / REFERRAL SCANNED. Images available. [facility] General Surgery Comment on above: CONSULT: THYROID NOD ULE / REFERRAL SCANNED. Images available. [facility] Start: 07-29-2024 End: 07-29-2024 Patient encounter procedure 07/29/2024 3:00 PM EST [facility] [place] [address] [facility] [address] [place] [phone] Gómez Younger MD [address] [facility] [address] [place] [address] [facility] [place] Start: 04-27-2024 COVID-19 Vaccine ( season) COVID-19 Vaccine ( season) [facility] Start: 04-23-2017 Screening for malign ant neoplasm of cervix Cervical Cancer Screening [facility] Start: 2016 Screening for malign ant neoplasm of cervix [facility] Start: 2007 Screening for malign ant neoplasm of cervix Pap Smear [facility] Start: 2004 Anxiety Screening Anxiety Screening [facility] Start: 2004 Depression Screening Depression Scre ening [facility] Start: 2004 Hepatitis C screening Hepatitis C Sc reening [facility] Start: 1999 Varicella vaccination Varicell a Vaccines (1 of 2 - 13+ 2-dose series) [facility] Start: 1998 Depression Monitoring Depression Mon itoring [facility] Start: 1987 MMR Vaccines (1 of 1 - Standard series) MMR Vaccines (1 of 1 - Standard series) [facility] Start: 1986 HIV screening HIV Screening [facility] Start: 1986 Lipid panel Lipid Panel [facility] NON-DIRECTOR OF EXTENSION WORK [facility] Work Phone: Comment on above: Ordered: 03/16/2025 T4 free measurement [facility] Thyroid stimulating hormone measurement [facility] Triiodothyronine, fr ee measurement [facility] Immunizations Immunization Date Immunization Notes Care Provider Fa [facility] 06-17-2024 Influenza, injectabl e, Madin Emi Canine Kidney, preservative free, quadrivalent Dr. Sommer Flynn MD Work Phone: [facility] 06-17-2024 influenza virus vaccine, unspecified formulation Baltazar Courtney MD Work Phone: [facility] 07-12-2021 influenza, injectabl e, quadrivalent, preservative free Dr. Sommer Flynn Work Phone: [facility] 10-12-2020 Covid (Moderna) Dr. Sommer Flynn Work Phone: [facility] 09-14-2020 Covid (Moderna) Dr. Sommer Flynn Work Phone: [facility] 05-25-2020 influenza, injectabl e, quadrivalent, preservative free Dr. Sommer Flynn Work Phone: [facility] 03-24-2020 tetanus toxoid, redu janeen diphtheria toxoid, and acellular pertussis vaccine, adsorbed Dr. Sommer Flynn Work Phone: [facility] 07-09-2019 influenza, injectabl e, quadrivalent, preservative free Dr. Sommer Flynn Work Phone: [facility] 10-22-2014 tetanus toxoid, redu janeen diphtheria toxoid, and acellular pertussis vaccine, adsorbed Yordy Andersen MD Work Phone: [facility] 05-28-2014 hepatitis B vaccine, adult dosage Yordy Andersen MD Work Phone: [facility] 05-28-2014 influenza, injectabl e, quadrivalent, preservative free Yordy Andersen MD Work Phone: [facility] 11-27-2013 hepatitis B vaccine, adult dosage Yordy Andersen MD Work Phone: [facility] 10-27-2013 hepatitis B vaccine, adult dosage Yordy Andersen MD Work Phone: [facility] Work Phone: 10-27-2013 tetanus toxoid, redu janeen diphtheria toxoid, and acellular pertussis vaccine, adsorbed Yordy Andersen MD Work Phone: [facility] Payers Date Payer Category Payer Private Health Insurance [facility] [id number] 2024 Unknown [id number] 2024 Self-pay [id number] 2024 Commercial Managed C are - HMO [id number] 2024 Unknown [id number] 2024 Unknown [id number] 2015 Private Health Insurance [id number] Private Health Insurance [id number] Unknown [facility] MHS DO NOT USE 22 [id number] Unknown [id number] 62 Unknown [id number] 62 Unknown [id number] 62 Unknown [id number] 62 Unknown [id number] 62 Unknown [id number] 62 Unknown [id number] 62 Unknown [id number] 62 Unknown [id number] 62 Unknown [id number] 62 Unknown [id number] 62 Unknown [id number] 62 Unknown [id number] 62 Unknown [id number] 62 Social History Date Type Detail Facility Start: 07-25-2023 Tobacco smoking stat [facility] Unknown if ever smoked [facility] Start: 03-18-2019 None [facility] Start: 03-18-2019 Spouse/ Signif icant Other [facility] Start: 1985 Sex Assigned At Female [facility] Start: 07-07-2024 End: 05-06-2025 Tobacco smoking status NHIS Never smoked tobacco [facility] Start: 04-23-2014 End: 07-07-2024 Tobacco use and exposure Smokeless tobacco non-user [facility] Start: 07-07-2024 End: 03-09-2025 Alcoholic beverage intake Current drinker of alcohol (finding) [facility] Start: 07-07-2024 End: 03-09-2025 History of Social function [facility] Start: 07-07-2024 End: 03-09-2025 Tobacco use panel [facility] Start: 1985 Sex assigned at Not on file [facility] Start: 04-28-2022 Sex Female (finding) [facility] Start: 07-30-2024 End: 03-04-2025 Alcoholic beverage intake Current non-drinker of alcohol (finding) [facility] National Score (1-100), lower number is lower risk 71 [facility] Start: 03-09-2025 Alcohol Comment Socially- meg mated once monthly [facility] Medical Equipment Procedure Code Equipment Code Equipment Original Text Equipment Identifier Dates Thyroidectomy Plant polysaccha ride haemostatic agent, bioabsorbable ()[id number] FDA Start: 05-12-2025 Thyroidectomy Ligation clip, metallic ( )[id number] FDA Start: 05-12-2025 Goals Date Patient Goal Desired Activity /State Functional Status Date Assessment Result Facility 05-13-2025 Functional status Ambulates [facility] Work Phone: 12-17-2014 Are you deaf, or do you have serious difficulty hearing No 12/17/2014 9:56 AM Leighann Dunn Ma No [facility] 12-17-2014 Are you blind, or do you have serious difficulty seeing, even when wearing glasses No 12/17/2014 9:56 AM Leighann Dunn Ma No [facility] 12-17-2014 Do you have serious difficulty walking or climbing stairs No 12/17/2014 9:56 AM EDT Leighann Delatorre Ma [facility] 12-17-2014 Do you have difficul ty dressing or bathing No 12/17/2014 9:56 AM EDLeighann Tello Ma [facility] 12-17-2014 Because of a physica l, mental, or emotional condition, do you have difficulty doing errands alone such as visiting a physician's office or shopping No 12/17/2014 9:56 AM EDT Leighann Delatorre Ma Jennifer [facility] Mental Status Date Assessment Result Facility 05-13-2025 Cognitive function Level Of Cons ciousness Awake [facility] Work Phone: 05-13-2025 Cognitive function Voice/Name [facility] Work Phone: 12-17-2014 Because of a physica l, mental, or emotional condition, do you have serious difficulty concentrating, remembering, or making decisions No 12/17/2014 9:56 AM EDT Leighann Delatorre Ma Jennifer [facility] Clinical Notes 07-07-2024 to 05-22-2025 Note Date & Type Note Facility 05-22-2025 Progress note [facility] 05-13-2025 Discharge summary [facility] 05-13-2025 Discharge summary [facility] 05-13-2025 Procedure note [facility] 05-13-2025 Discharge summary Note Date/Time May 13, 2025 11:33am [facility] Medical Records Department [address] [place] [address] Discharge Summary 05/13/25 0759 MR#: [id number] Acct: [id number] Name: HAMLET TEIXEIRA Rep # :[id number] : 1985 39 From: Gómez Quick PCP: Dr. Ortega Medrano MD Status:JESUS PLATA Location: ME3 [id number] Providers Date of Admission: 05/12/25 Primary Care Physician: Dr. Ortega Medrano MD Reason For Visit: Total Thyroidectomy w/IONM Diagnosis Discharge Diagnosis (1) Status post total thyroidectomy: Status: Acute Code(s): Z98.890 - Other specified postprocedural states; Z90.89 - Acquired absence of other organs Plan: Patient 39-year-old female postoperative 1 from total thyroidectomy with intraoperative nerve monitoring. She is doing well this morning. She has improved discomfort and no difficulty with dietary tolerance. She relates no concerns for paresthesias. Will plan to start first dose of replacement levothyroxine today. Instructions for levothyroxine dosing were reviewed with patient for her information when she returns home. Will also advance to [facility]. Discussed outpatient wound care and follow-up instructions. Patient denies any further questions. Provided the above implemented care plan items proceed without complication will plan for discharge later today. Gómez Casaino MD General Surgery Endocrine Surgery Pager: [facility] [address] [place] [address], [address] [place] [address] Office: 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 Surgery proceeded in uncomplicated fashion and patient was admitted postoperatively to observation for monitoring of her surgical site and perioperative monitoring of her calcium. She had an uneventful postoperative phase and PTH assays were reassuring. The morning of postoperative day 1 she was initiated on replacement levothyroxine and given instructions for its administration as an outpatient. We also reviewed postoperative activity and wound care instructions as well as expectation for outpatient follow-up. Patient confirmed understanding. After advancing to regular diet and confirming her tolerance she was granted discharge to home withoutpatient follow-up anticipated in 10 to 14 days. Physical Exam Const alert, oriented x3 and no apparent distress Neck Neck Narrative: Bandage intact without strikethrough. Soft tissue area of the surgical site remains soft. There is minimal swelling. Weight / BMI Weight Weight: 228 lb 6.382 oz Body Mass Index (BMI) 40.4 ABG / Lab / Microbiology Data 05/13/25 04:20 Laboratory: Laboratory Results - last 24 hr 05/12/25 15:25: PTH Intact 76 H 05/13/25 04:20: Sodium 140, Potassium 3.4, Chloride 106, Carbon Dioxide 21.6, Anion Gap 12, BUN 8, Creatinine 0.75, Estim Creat Clear Calc 117.01, Est GFR (MDRD) Non-Af 105, BUN/Creatinine Ratio 10.6, Glucose 171 H, Calcium 8.7, Total Bilirubin 0.73, AST 60 H, ALT 63 H, Alkaline Phosphatase 81, Total Protein 6.8, Albumin 4.0, Globulin 2.8, Albumin/Globulin Ratio 1.5, PTH Intact 58 D/C Instructions May shower in (days): 1 Ice area for (Minutes): 20 Call your doctor if your incision/area has: Continuous Slow Oozing, Sudden Increased Bleeding, Increased Pain/ Swelling, Increased Redness and Swelling at the incision site Call your doctor if you observe: Numbness or Tingling Cleanse incision/area with: Soap & Water DC O2, CPAP, BIPAP Needs Home O2 Discharge instructions: No Please Follow Up With: Gómez Casiano MD When: 10-14 days postop Meaningful Use Info Meaningful Use Meaningful Use Diagnoses (Choose all that apply): None applicable Discharge Plan Admission Admit Date/Time: 05/12/25 14:52 Primary Reason for Your Visit: Thyroidectomy Attending Provider: Gómez Casiano Primary Care Provider: Ortega Medrano Discharge Orders/Prescriptions Prescriptions: New levothyroxine 150 mcg capsule 150 mcg PO DAILY 35 Days Qty: 35 0RF Continued duloxetine 60 mg capsule,delayed release(DR/EC) 60 mg PO DAILY cholecalciferol (vitamin D3) [Vitamin D3] 50 mcg (2,000 unit) tablet 50 mcg PO DAILY hydroxyzine pamoate 25 mg capsule 25 mg PO TID PRN PRN (Reason: anxiety) Slynd 4 mg (28) tablet 1 tab PO DAILY Qty: 84 3RF Referrals / Follow Up: Ortega Medrano MD [Primary Care Provider, Family Practice] Disposition Disposition (needs filled in before D/C Order can be placed): Home, Self Care Charges/Coding Visit Charges Inpatient E&M: 32731 Disch Hosp 05/13/25 1133 <Electronically signed by Gómez Casiano MD> Cosigner Signature (if applicable): CC: Dr. Ortega Medrano MD; Dr. Gómez Casiano MD~ Signed [facility] Work Phone: [phone] 426-808609-17-2025 Discharge summary Author Gómez Casiano [facility] Note Date/Time May 13, 2025 11:32am [facility] Medical Records Department [address] [place] [address] Instructions for Home/Discharge Instructions 05/13/25 0755 MR#: [id number] Acct: [id number] Name: HAMLET TEIXEIRA Rep # :[id number] : 1985 39 From: Gómez Quick PCP: Dr. Ortega Medrano MD Status:AD M BONI Discharge Instructions DC O2, CPAP, BIPAP needs Home O2 Discharge instructions: No Dressing / Incision Discharge Activity: May Not Drive (While it remains difficult to check blind spots quickly) May shower in (days): 1 Ice area for (Minutes): 20 Lifting Restrictions: No lifting greater than 15 pounds for 2 weeks after surgery Dressing / Incision Call your doctor if your incision/area has: Continuous Slow Oozing, Sudden Increased Bleeding, Increased Pain/ Swelling, Increased Redness and Swelling at the incision site Call your doctor if you observe: Numbness or Tingling Remove Dressing in: 1 day (Please leave Steri-Strips intact until they fall off spontaneously or are taken off at your follow-up visit) Cleanse incision/area with: Soap & Water Follow Up Care Please Follow Up With: Gómez Casiano MD When: 10-14 days postop Test Results: Test results from this visit will be discussed in further detail at your follow- up appointment, if applicable. Discharge Plan Admission Admit Date/Time: 05/12/25 14:52 Primary Reason for Your Visit: Thyroidectomy Attending Provider: Gómez Casiano Primary Care Provider: Ortega Medrano Discharge Orders/Prescriptions Prescriptions: New levothyroxine 150 mcg capsule 150 mcg PO DAILY 35 Days Qty: 35 0RF Continued duloxetine 60 mg capsule,delayed release(DR/EC) 60 mg PO DAILY cholecalciferol (vitamin D3) [Vitamin D3] 50 mcg (2,000 unit) tablet 50 mcg PO DAILY hydroxyzine pamoate 25 mg capsule 25 mg PO TID PRN PRN (Reason: anxiety) Slynd 4 mg (28) tablet 1 tab PO DAILY Qty: 84 3RF Referrals / Follow Up: Ortega Medrano MD [Primary Care Provider, Family Practice] Disposition Disposition (needs filled in before D/C Order can be placed): Home, Self Care 05/13/25 1132<Electronically signed by Gómez Casiano MD>Gómez Casiano MD CC: Dr. Ortega Medrano MD ~ Signed [facility] Work Phone: 1([phone]) 114-274909-17-2025 Progress note Author [facility]z [facility] Note Date/Time May 13, 2025 7:45am [facility] Medical Records Department [address] [place] [address] Progress Note - Surgery 05/13/25 0742 MR#: [id number] Acct: [id number] Name: HAMLET TEIXEIRA Rep # :[id number] : 1985 39 From: Gómez Quick PCP: Dr. Ortega Medrano MD Status:JESUS PLATA Location: [facility] FE544-5 Subjective Subjective Patient doing well this morning. She reports that she was up and about last evening able to walk. She states that she does have a mild sore throat but thisis better than yesterday. She denies any difficulty with her liquids. She denies any sensation of numbness or tingling. Objective Data Objective Data Vital Signs: Vital Signs Temp Pulse Resp BP Pulse Ox O2 Del Method O2 Flow Rate 98.1 F 71 16 136/78 H 98 Room Air 3 05/13/25 04:47 05/13/25 04:47 05/13/25 04:47 05/13/25 04:47 05/13/25 04:47 05/13/25 04:47 05/12/25 16:00 Oxygen Flow Rate (L/min) 3 Oxygen Delivery Method Room Air Weight: 228 lb 6.382 oz Body Mass Index (BMI) 40.4 Intake & Output: Intake and Output for Last 24 Hours 05/11/25 05/12/25 05/13/25 23:59 23:59 23:59 Intake Total 1115 / 1515 400 / 400 Output Total 5 / 5 Balance 1110 / 1510 400 / 400 Lab / Micro Data 05/13/25 04:20 Labs: Laboratory Results - last 24 hr 05/12/25 15:25: PTH Intact 76 H 05/13/25 04:20: Sodium 140, Potassium 3.4, Chloride 106, Carbon Dioxide 21.6, Anion Gap 12, BUN 8, Creatinine 0.75, Estim Creat Clear Calc 117.01, Est GFR (MDRD) Non-Af 105, BUN/Creatinine Ratio 10.6, Glucose 171 H, Calcium 8.7, Total Bilirubin 0.73, AST 60 H, ALT 63 H, Alkaline Phosphatase 81, Total Protein 6.8, Albumin 4.0, Globulin 2.8, Albumin/Globulin Ratio 1.5, PTH Intact 58 Physical Exam Const oriented x3 and no apparent distress Neck Neck Narrative: Operative dressing in place without strikethrough, minor soft tissue swelling, surgical site remains soft Resp normal respiratory effort Assessment & Plan Assessment/Plan (1) Status post total thyroidectomy: PLAN: Patient 39-year-old female postoperative 1 from total thyroidectomy with intraoperative nerve monitoring. She is doing well this morning. She has improved discomfort and no difficulty with dietary tolerance. She relates no concerns for paresthesias. Will plan to start first dose of replacement levothyroxine today. Instructions for levothyroxine dosing were reviewed with patient for her information when she returns home. Will also advance to [facility]. Discussed outpatient wound care and follow-up instructions. Patient denies any further questions. Provided the above implemented care plan items proceed without complication will plan for discharge later today. Gómez Casiano MD General Surgery Endocrine Surgery Pager: [facility] [address] [place] [address], [address] [place] [id number] Office: [phone] Charges/Coding Visit Charges Inpatient E&M: 60641 Subs Hosp L1 05/13/25 0745 <Electronically signed by Gómez Casiano MD> Cosigner Signature (if applicable): CC: ~ Signed [facility] Work Phone: 1(847) 996-559409-17-2025 [facility] Medical Records Department [address] [place] [address] Discharge Summary 05/13/25 0759 MR#: [id number] Acct: [id number] Name: HAMLET TEIXEIRA Rep #: [id number] : 1985 39 From: Gómez Casiano MD PCP: Dr. Ortega Medrano MD Status:ADM BONI [facility] Prov[facility] Date of Admission: 05/12/25 Primary Care Physician: Dr. Ortega Medrano MD Reason For Visit: Total Thyroidectomy w/IONM Diagnosis Discharge Diagnosis (1) Status post total thyroidectomy: Status: Acute Code(s): Z98.890 - Other specified postprocedural states; Z90.89 - Acquired absence of other organs Plan: Patient 39-year-old female postoperative 1 from total thyroidectomy with intraoperative nerve monitoring. She is doing well this morning. She has improved discomfort and no difficulty with dietary tolerance. She relates no concerns for paresthesias. Will plan to start first dose of replacement levothyroxine today. Instructions for levothyroxine dosing were reviewed with patient for her information when she returns home. Will also advance to regular diet. Discussed outpatient wound care and follow-up instructions. Patient denies any further questions. Provided the above implemented care plan items proceed without complication will plan for discharge later today. Gómez Casiano MD General Surgery Endocrine Surgery Pager: [facility] [address] [place] [address], [address] [place] [address] Office: [phone] Medications at Discharge Home Medications duloxetine 60 mg capsule,delayed release 60 mg PO DAILY 07/25/23 drospirenone (contraceptive) 4 mg (28) tablet (Slynd) 1 tab PO DAILY #84 tabs 01/01/25 cholecalciferol (vitamin D3) 50 mcg (2,000 unit) tablet (Vitamin D3) 50 mcg PO DAILY 05/06/25 hydroxyzine pamoate 25 mg capsule 25 mg PO TID PRN PRN anxiety 05/06/25 levothyroxine 150 mcg capsule 150 mcg PO DAILY 5 weeks #35 caps 05/13/25 Hospital Course Operations - (Total thyroidectomy) Procedures None Summary of Care Provided Hospital Course: Patient 39-year-old female with biopsy proven papillary thyroid cancer of the right thyroid lobe who underwent total thyroidectomy with intraoperative neuromonitoring on 05/12/2025. Surgery proceeded in uncomplicated fashion and patient was admitted postoperatively to observation for monitoring of her surgical site and perioperative monitoring of her calcium. She had an uneventful postoperative phase and PTH assays were reassuring. The morning of postoperative day 1 she was initiated on replacement levothyroxine and given instructions for its administration as an outpatient. We also reviewed postoperative activity and wound care instructions as well as expectation for outpatient follow-up. Patient confirmed understanding. After advancing to regular diet and confirming her tolerance she was granted discharge to home with outpatient follow-up anticipated in 10 to 14 days. Physical Exam Const alert, oriented x3 and no apparent distress Neck Neck Narrative: Bandage intact without strikethrough. Soft tissue area of the surgical site remains soft. There is minimal swelling. Weight / BMI Weight Weight: 228 lb 6.382 oz Body Mass Index (BMI) 40.4 ABG / Lab / Microbiology Data 05/13/25 04:20 Laboratory: Laboratory Results - last 24 hr 05/12/25 15:25: PTH Intact 76 H 05/13/25 04:20: Sodium 140, Potassium 3.4, Chloride 106, Carbon Dioxide 21.6, Anion Gap 12, BUN 8, Creatinine 0.75, Estim Creat Clear Calc 117.01, Est GFR (MDRD) Non-Af 105, BUN/Creatinine Ratio 10.6, Glucose 171 H, Calcium 8.7, Total Bilirubin 0.73, AST 60 H, ALT 63 H, Alkaline Phosphatase 81, Total Protein 6.8, Albumin 4.0, Globulin 2.8, Albumin/Globulin Ratio 1.5, PTH Intact 58 D/C Instructions May shower in (days): 1 Ice area for (Minutes): 20 Call your doctor if your incision/area has: Continuous Slow Oozing, Sudden Increased Bleeding, Increased Pain/ Swelling, Increased Redness and Swelling at the incision site Call your doctor if you observe: Numbness or Tingling Cleanse incision/area with: Soap Water DC O2, CPAP, BIPAP Needs Home O2 Discharge instructions: No Please Follow Up With: Gómez Casiano MD When: 10-14 days postop Meaningful Use Info Meaningful Use Meaningful Use Diagnoses (Choose all that apply): None applicable Discharge Plan Admission Admit Date/Time: 05/12/25 14:52 Primary Reason for Your Visit: Thyroidectomy Attending Provider: Gómez Casiano Primary Care Provider: Ortega Medrano Discharge Orders/Prescriptions Prescriptions: New levothyroxine 150 mcg capsule 150 mcg PO DAILY 35 Days Qty: 35 0RF Continued duloxetine 60 mg capsule,delayed release(DR/EC) 60 mg PO DAILY cholecalciferol (vitamin D3) [Vitamin D3] 5 (more content not included)... [facility]09-17-2025 Progress note [facility] Medical Records Department [address] [place] [address] Progress Note - Surgery 05/13/25 0742 MR#: [id number] Acct: [id number] Name: HAMLET TEIXEIRA Rep # :[id number] : 1985 39 From: Gómez Quick PCP: Dr. Ortega Medrano MD Status:AD [facility] Location: [facility] CR737-0 Subjective Subjective Patient doing well this morning. She reports that she was up and about last evening able to walk. She states that she does have a mild sore throat but thisis better than yesterday. She denies any difficulty with her liquids. She denies any sensation of numbness or tingling. Objective Data Objective Data Vital Signs: Vital Signs Temp Pulse Resp BP Pulse Ox O2 Del Method O2 Flow Rate 98.1 F 71 16 136/78 H 98 Room Air 3 05/13/25 04:47 05/13/25 04:47 05/13/25 04:47 05/13/25 04:47 05/13/25 04:47 05/13/25 04:47 05/12/25 16:00 Oxygen Flow Rate (L/min) 3 Oxygen Delivery Method Room Air Weight: 228 lb 6.382 oz Body Mass Index (BMI) 40.4 Intake & Output: Intake and Output for Last 24 Hours 05/11/25 05/12/25 05/13/25 23:59 23:59 23:59 Intake Total 1115 / 1515 400 / 400 Output Total 5 / 5 Balance 1110 / 1510 400 / 400 Lab / Micro Data 05/13/25 04:20 Labs: Laboratory Results - last 24 hr 05/12/25 15:25: PTH Intact 76 H 05/13/25 04:20: Sodium 140, Potassium 3.4, Chloride 106, Carbon Dioxide 21.6, Anion Gap 12, BUN 8, Creatinine 0.75, Estim Creat Clear Calc 117.01, Est GFR (MDRD) Non-Af 105, BUN/Creatinine Ratio 10.6, Glucose 171 H, Calcium 8.7, Total Bilirubin 0.73, AST 60 H, ALT 63 H, Alkaline Phosphatase 81, Total Protein 6.8, Albumin 4.0, Globulin 2.8, Albumin/Globulin Ratio 1.5, PTH Intact 58 Physical Exam Const oriented x3 and no apparent distress Neck Neck Narrative: Operative dressing in place without strikethrough, minor soft tissue swelling, surgical site remains soft Resp normal respiratory effort Assessment & Plan Assessment/Plan (1) Status post total thyroidectomy: PLAN: Patient 39-year-old female postoperative 1 from total thyroidectomy with intraoperative nervemonitoring. She is doing well this morning. She has improved discomfort and no difficulty with dietary tolerance. She relates no concerns for paresthesias. Will plan to start first dose of replacement levothyroxine today. Instructions for levothyroxine dosing were reviewed with patient for her infor mation when she returns home. Will also advance to [facility]. Discussed outpatient wound care andfollow-up instructions. Patient denies any further questions. Provided the above implemented care plan items proceed without complication will plan for discharge later today. Gómez Casiano MD General Surgery Endocrine Surgery Pager: [facility] [address] [place] [address], [address] [place] [address] Office: [phone] Charges/Coding Visit Charges Inpatient E&M: 69704 Subs Hosp L1 05/13/25 3540 Cosigner Signature (if applicable): CC: ~ Signed [facility]09-16-2025 Consult note Author Leighton Copeland [facility] Note Date/Time May 12, 2025 5:21pm [facility] Medical Records Department [address] [place] [address] Anesthesia Postop Eval II 05/12/25 1709 MR#: [id number] Acct: [id number] Name: HAMLET TEIXEIRA Rep # :[id number] : 1985 39 From: Leighton Copeland MD PCP: Dr. Ortega Medrano MD Status:AD M BONI Y Race: C Location: [place] [address] Anesthesia Postop Eval I Sum Postop Eval Completion status Anesthesia document: Postop Eval 1 completed: Yes Anesthesia Postop Eval I Summary Anesthesia Postop Eval I Summary: Anesthesia Postop Eval I: Assessment Summary Airway patent Yes 05/12/25 15:10 [email or web address] Spontaneous unlabored Yes 05/12/25 15:10 [email or web address] [email or web address] respirations Mental status Awake,Calm 05/12/25 15:10 [email or web address] [email or web address] nausea No 05/12/25 15:10 [email or web address] [email or web address] Vomiting No 05/12/25 15:10 [email or web address] [email or web address] Anesthesia Postop Eval I: Fluid Summary Crystalloid volume administer 1,400 05/12/25 15:10 [email or web address] [email or web address] (ml) Colloids volume administered ( ml) Blood Product volume administered (ml) Total IV fluid infused 1,400 05/12/25 15:10 [email or web address] [email or web address] Anesthesia Postop Eval I: Summary Notes Anesthesia Complication No 05/12/25 15:10 [email or web address] Anesthesia Complication Comment: Post-operative progress note Anesthesia: Postop Eval II Evaluation Mental status: Awake and Calm Pain Level: 3 nausea: No Vomiting: No Progress Note Post-operative progress note: Patient's blood pressure is consistently elevated through the entire perioperative period. She did remain within her 20% of preopblood pressures and was discharged from PACU to the floor. Dr. Casiano was appraised of her slightly elevated blood pressures. Complications Anesthesia Complication: No 05/12/25 1721 <Electronically signed by Leighton aguilar MD> Date _ Leighton Copeland MD Cosigner Signature: Date CC: ~ Signed [facility] Work Phone: 1(899) 250-261409-16-2025 Consult note [facility] Medical Records Department [address] [place] [address] Anesthesia Postop Eval II 05/12/25 1709 MR#: [id number] Acct: [id number] Name: HAMLET TEIXEIRA Rep # :[id number] : 1985 39 From: Leighton Copeland MD PCP: Dr. Ortega Medrano MD Status:AD M BONI Y Race: C [facility]315 -1 Anesthesia Postop Eval I Sum Postop Eval Completion status Anesthesia document: Postop Eval 1 completed: Yes Anesthesia Postop Eval I Summary Anesthesia Postop Eval I Summary: Anesthesia Postop Eval I: Assessment Summary Airway patent Yes 05/12/25 15:10 [email or web address] Spontaneous unlabored Yes 05/12/25 15:10 [email or web address] [email or web address] respirations Mental status Awake,Calm 05/12/25 15:10 [email or web address] [email or web address] nausea No 05/12/25 15:10 [email or web address] [email or web address] Vomiting No 05/12/25 15:10 [email or web address] [email or web address] Anesthesia Postop Eval I: Fluid Summary Crystalloid volume administer 1,400 05/12/25 15:10 [email or web address] [email or web address] (ml) Colloids volume administered ( ml) Blood Product volume administered (ml) Total IV fluid infused 1,400 05/12/25 15:10 [email or web address] [email or web address] Anesthesia Postop Eval I: Summary Notes Anesthesia Complication No 05/12/25 15:10 [email or web address] Anesthesia Complication Comment: Post-operative progress note Anesthesia: Postop Eval II Evaluation Mental status: Awake and Calm Pain Level: 3 nausea: No Vomiting: No Progress Note Post-operative progress note: Patient's blood pressure is consistently elevated through the entire perioperative period. She did remain within her 20% of preopblood pressures and was discharged from PACU to the floor. Dr. Casiano was appraised of her slightly elevated blood pressures. Complications Anesthesia Complication: No 05/12/25 1721 lauren SANTOS> Date _ Leighton Maldonado Signature: Date CC: ~ Signed [facility]09-16-2025 Consult note Author Estella Henry [facility] Note Date/Time May 12, 2025 3:10pm [facility] Medical Records Department [address] [place] [address] Anesthesia Postop Eval I 05/12/25 1508 MR#: [id number] Acct: [id number] Name: HAMLET TEIXEIRA Rep # :[id number] : 1985 39 From: Estella MONTANO PCP: Dr. Ortega Medrano MD Status:[facility] Y Race: C Location: [place] [address] Anesthesia: Postop Eval I Current Vital Signs Temperature: 98 F Pulse Rate: 96 Blood Pressure: 151/100 Respiratory Rate: 18 Pulse Ox: 94 Oxygen Delivery Method: Room Air Assessment Airway patent: Yes Spontaneous unlabored respirations: Yes Mental status: Awake and Calm nausea: No Vomiting: No Anesthesia Complication: No Fluid Hydration Crystalloid volume administer (ml): 1,400 Total IV fluid infused: 1,400 Progress Note Anesthesia document: Postop Eval 1 completed: Yes 05/12/251509 <Electronically signed by Estella Henry CRNA> Date _ Estella Maldonado Signature: Date CC: ~ Signed [facility] Work Phone: 1(983) 797-830209-16-2025 Consult note [facility] Medical Records Department [address] [place] [address] Anesthesia Postop Eval I 05/12/25 1508 MR#: [id number] Acct: [id number] Name: HAMLET TEIXEIRA Rep # :[id number] : 1985 39 From: Estella MONTANO PCP: Dr. Ortega Medrano MD Status:[facility] Y Race: C Location: [place] [address] Anesthesia: Postop Eval I Current Vital Signs Temperature: 98 F Pulse Rate: 96 Blood Pressure: 151/100 Respiratory Rate: 18 Pulse Ox: 94 Oxygen Delivery Method: Room Air Assessment Airway patent: Yes Spontaneous unlabored respirations: Yes Mental status: Awake and Calm nausea: No Vomiting: No Anesthesia Complication: No Fluid Hydration Crystalloid volume administer (ml): 1,400 Total IV fluid infused: 1,400 Progress Note Anesthesia document: Postop Eval 1 completed: Yes 05/12/25 1510 LOG HOOKER> Date _ Estella Henry LOG HOOKER Cosigner Signature: Date CC: ~ Signed [facility]09-16-2025 History and physical note Author Gómez [facility] Note Date/Time May 12, 2025 11:00am [facility] Medical Records Department [address] [place] [address] History & Physical Exam 05/12/25 1058 MR#: [id number] Acct: [id number] Name: HAMLET TEIXEIRA Rep # :[id number] : 1985 39 From: Gómez Quick PCP: Dr. Ortega Medrano MD Status:[facility] Location: [place] [address] History and Physical Date of Admission: 05/12/25 Date of Service: 04/17/25 MR#: [id number] Acct: [id number] Name: HAMLET TEIXEIRA Rep #: [id number] : 1985 Provider: Dr. Gómez Casiano MD Age/Sex: 39/F Location: [facility] Status: Signed Intake Vital Signs 07/28/2409:30 04/17/2509:28 Height 5 ft 3 in 5 ft [...] Known Allergies Allergy (Verified 04/17/25 09:29) Medications ?Medication ?Instructions ?Recorded ?Confirmed ?Type duloxetine 60 mg capsule,delayed 60 mg PO DAILY 07/25/23 04/17/25 History release cholecalciferol (vitamin D3) 10 10 mcg PO QDAY 07/28/24 04/17/25 History mcg (400 unit) capsule drospirenone (contraceptive) 4 mg 1 tab PO DAILY #84 tabs 01/01/25 5 Rx (28) tablet (Slynd) PFSH Medical History (Updated 04/17/25 @ 15:[address] Gómez Casiano MD) Thyroid nodule DVT (deep venous thrombosis) Bilateral pulmonary embolism History of miscarriage, currently Perianal abscess Exposure to blood Surgical History History of laparoscopic cholecystectomy Family History Grandmother Breast cancerGrandfather No problems noted. 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 She underwent biopsy of a right superior and right inferior nodule with Blackfoot 5 and 3 ratings, respectively. The latter nodule then underwent Afirma testing with a "benign" diagnosis They do not experience difficulty with swallowing. They do not complain of a new cough. They do not appreciate new voice changes. They do have a history ofsnoring/sleep apnea. Additionally, their weight has been steadily increasing and they report they areat their heaviest of all time. There also is a history of significant recent fatigue. Mrs. Teixeira declares that she awakens feeling unrefreshed and suffers from frequent nighttime awakenings. They also report a history of heavysweating and have a history of heat intolerance. [...] changing moles Musc Musculoskeletal: No back problems, arthritis, rheumatoid arthritis, gout or joint pain Cardio Cardiovascular: No murmur, pacemaker, heart disease, atrial fibrillation, high blood pressure, heart attack, heart stent, palpitations, shortness of breath with exertion or chest pain Psych Psychiatric: Yes anxiety; No depression or hearing voices Resp Respiratory: No shortness of breath, No sleep apnea, No cough, No COPD, No asthma, No emphysema and No wheezing Gastro Gastrointestinal: No abdominal pain, No nausea or vomiting, No diarrhea, No constipation, No blood in stool, No acid reflux, Yes hemorrhoids, No ulcers, Yesgallbladder problem and No black,tarry stools Raghavendra Hematologic: No blood thinners, No blood disorders, No bleeding, No anemia and Yes blood clots Neuro Neurologic: No numbness, No tingling and No weakness Exam Const General: cooperative and anxious Orientation: alert, awake and oriented x3 Neck Other: Subtly palpable right thyroid nodule is mildly tender to palpation. Mildly disparate right thyroid lobe greater than left thyroid lobe. No palpable cervical lymphadenopathy. Assessment and Plan Assessment and Plan (1) Multiple thyroid nodules: Status: Acute Comment: Patient is 39-year-old female, euthyroid from an endocrine standpoint, who makessurgical consultation related to recently diagnosed thyroid nodules that were biopsied and right superior nodule was deemed suspicious for papillary thyroid carcinoma. Nodule reportedly found during routine exam and patient has no history of endocrine disorders. A second nodule was also biopsied with a "atypical" result, however, reflex Afirma testing showed this to be benign. Therefore, it would appear patient has a 2.2 cm Blackfoot 5 nodule suspicious forunifocal PTC. I held a lengthy conversation today with Mrs. Teixeira regarding her surgical options. I suggested that [place] [employer] would generally recommend thyroid lobectomy with isthmusectomy in this setting (low risk PTC) as a means of trying to mitigate the risks around surgery?specifically for this procedure including hypoparathyroidism and recurrent laryngeal nerve injury. Hand drawings were used to illustrate relevant anatomy. I did go on to describe the propensity of papillary thyroid cancer for leeanne spread. I stated that prophylactic central neck dissection is no longer standard and instead suggested we proceed with a preoperative soft tissue ultrasound for lymph node mapping purposes. I shared that if any concerning lymph nodes were identified we would have to proceed with FNA biopsy and determine how this impacts the overall operative plan. Concerning lateral neck nodes could require tertiary referral if there is a high likelihood of needing lateral neck dissection. Otherwise, I stated her care should be able aline managed here in [place]. Lastly, I described the implications for risk stratification on papillary thyroid cancer as it relates to lymph node metastasis and the need for radioactive iodine therapy. I connected this back to choice for surgery and suggested that postoperative treatment with DAY and surveillance with thyroglobulin monitoring is simpler following total thyroidectomy, but maintained these were not reasons in and of themselves to exclude initial ARIS recommendation for lobectomy. I assured her that completionthyroidectomy should be possible if indicated simply preserving of urgent anatomic planes. Patient states that she is now leaning towards probably deciding for lobectomy with isthmusectomy but wishes to discuss things further withher . Plan: ? Await patient response on total thyroidectomy versus thyroid lobectomy with isthmusectomy using intraoperative nerve monitoring ? Soft tissue ultrasound for lymph node mapping I have examined the patient the following changes are noted: Patient completed lymph node mapping which revealed no suspicious adenopathy. She also visited with her family and has elected to proceed with total thyroidectomy with intraoperative nerve monitoring. She presents today for the procedure. Today Iaddended her consent to include the possibility of central lymph node dissectionin the event that we would find adenopathy that was clinically suspicious, but shared with her I felt this was unlikely given her history. We otherwise reviewed the expectation of the procedure and postprocedure recovery directions. Questions were answered from patient and her family. Will now proceed to the operating room for total thyroidectomy with intraoperative nerve monitoring and possible central neck (lymph node) dissection if clinically indicated. Postoperative observational stay planned. 05/12/25 1100 <Electronically signed by Gómez Casiano MD> Cosigner Signature (if applicable): CC: Dr. Ortega Medrano MD; Dr. Gómez Casiano MD~ Signed [facility] Work Phone: 1(823) 164-537609-16-2025 Consult note Author Leighton Copeland [facility] Note Date/Time May 12, 2025 10:32am [facility] Medical Records Department [address] [place] [address] Pre-Anesthesia Evaluation 05/12/25 1018 MR#: [id number] Acct: [id number] Name: HAMLET TEIXEIRA Rep # :[id number] : 1985 39 From: Leighton Copeland MD PCP: Dr. Ortega Medrano MD Status:[facility] [place] Y Race: C Location: [place] [address] ASA Classification* ASA Classification ASA Classification: 2 Assessment & Plan Anesthesia* Anesthesia Assessment Anesthesia Assessment: Discussed sedation and/or anesthesia options, risks, benefits, and alternatives with patient/parents/legal guardian/POA. Questions invited. The patient/parents/legal guardian/POA seems to understand and agrees to proceedwith anesthesia plan. Reviewed the physical assessment, medical history, allergy history and patient home medications list prior to surgery/procedure/anesthetic and documented any changes. Performed airway and anesthesia risk assessments. Anesthesia Type Anesthesia Type: General (Consider GlideScope for intubation.) History Source History Obtained from:: Patient and Chart Anesthesia Focused Assessment* Temperature: 99.5 F Pulse Rate: 73 Blood Pressure: 148/84 Respiratory Rate: 18 Pulse Ox: 99 Oxygen Delivery Method: Room Air Airway Assessment Mouth opens: >3 cm Mallampati Score: IV Teeth Condition: Caps/Crowns (Patient has a cap On her right lower molar.) Neck Range of motion (ROM): Full ROM Labs Anesthesia Preop lab: CBC WBC 11.0 K/mm3 (4.4-11.0) 02/05/25 12:02/05/25 RBC 4.31 M/mm3 (4.2-5.4) 02/05/25 12:11 02/05/25 Hgb 13.0 g/dL (12.0-15.0) 02/05/25 12:11 02/05/25 Hct 39.8 % (37-47) 02/05/25 12:02/05/25 Plt Count 382 K/mm3 (150-450) 02/05/25 12:11 02/05/25 CHEMISTRY Potassium 4.1 mmol/L (3.3-5.1) 02/05/25 12:11 02/05/25 Sodium 138 mmol/L (133-145) 02/05/25 12:11 02/05/25 Phosphorus 2.6 mg/dL (2.7-4.5) L 11/15/24 08:56 11/15/24 BUN 7 mg/dL (4-19) 02/05/25 12:11 02/05/25 Creatinine 0.82 mg/dL (0.70-1.20) 02/05/25 12:11 02/05/25 Glucose 93 mg/dL (70-99) 02/05/25 12:11 02/05/25 TSH 1.840 uIU/mL (0.300-4.200) 02/05/25 12:11 01/25 10/21 COAG PT 12.9 SECONDS (11.7-14.9) 04/02/20 11:05 HCG, Quant 74354 mIU/mL (1-3) H 10/27/19 15:35 10/27/19 Pre-Assessment Diagnosis/Proposed Procedure Planned Operative Procedure(s): TOTAL THYROIDECTOMY Anesthesia History 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 When Was Last Pacemaker Check QUESTION #4 FULL TEXT: You/Your Family Experience fever (hyperthermia) with Anesthesia Last Oral Intake Last Oral intake: Last Oral Intake NPO since 21:00 05/12/25 09:53 Meds taken in AM with sips of No 05/12/25 09:53 water? Meds patient instructed to take am of surgery PONV PONV - power digger operator: PONV - power digger operator Female Yes 05/06/25 10:07 HX of Motion Sickness No 05/06/25 10:07 HX of N/V After Surgery Yes 05/06/25 10:07 Non-Smoker Yes 05/06/25 10:07 Duration of Surgery greater Yes 05/06/25 10:07 than 60 minutes Number of Risk Factors 4 05/06/25 10:07 PONV Score Severe Risk 05/06/25 10:07 Height & Weight Height & Weight: Anesthesia: Height & Weight Height 5 ft 3 in 05/12/25 09:53 Weight: 104.326 kg 05/12/25 09:53 Body Mass Index (BMI) 40.7 05/12/25 09:53 Respiratory Assessment Respiratory Assessment - power digger operator: Respiratory Tract Infection Hx - power digger operator Hx Respiratory Tract Infection No 05/06/25 10:07 STOP Sleep Apnea STOP Sleep Apnea - power digger operator: STOP Sleep Apnea - power digger operator Hx Hypertension No 05/06/25 10:07 Hx Sleep Apnea No 05/06/25 10:07 CPAP BIPAP Do you snore loudly (louder Yes 05/06/25 10:07 than talking or can be heard Do you often feel tired/ Yes 05/06/25 10:07 fatigued/ sleepy during daytime? Has anyone observed you stop Yes 05/06/25 10:07 breathing during sleep? STOP Results Positive 05/06/25 10:07 QUESTION #5 FULL TEXT : Do you snore loudly (louder than talking or can be heard through closed doors)? Tobacco Use History Tobacco Use History - power digger operator: Tobacco Use History - power digger operator Tobacco Use Smoking Status Never smoker 05/06/25 10:07 Hx Tobacco Use No 05/06/25 10:07 Years Smoking Packs Smoked per Day Smoking Cessation Date was within the last 15 years Hx Smoking Cessation Date Hx Smoking Cessation Counseling Hematologic Medial History Hematologic Hx - power digger operator: Hematologic Medical Hx - sample steamer Hx of Blood Transfusion No 05/06/25 10:07 Hx of Transfusion in last 3 No 05/06/25 10:07 Months Date of Last Transfusion (if within last 3 months) Ever experience any problems No 05/06/25 10:07 with transfusion(s)? Specify any problems Hx of Preganancy in last 3 No 05/06/25 10:07 Months Nurse Filling Out Transfusion DSCHRIBER 05/06/25 10:07 & Questions: Date: 05/06/25 05/06/25 10:07 Time: 10:08 05/06/25 10:07 Patient unable to answer at this time (ie. confused, unrespo /Reproduction History /Reproductive History - power digger operator: /Reproductive Hx- power digger operator Hx Now No 05/06/25 10:07 Gestational Age (in weeks): EDC: Hx Hx Para Hx Section SAB No 05/06/25 10:07 Active Medications Active Medications: Current Medications Generic Name Dose Route Start Last Admin Trade Name Freq PRN Reason Stop Dose Admin Lactated Ringer's 1,000 mls @ 15 mls/hr 05/12/25 10:00 05/12/25 09:59 IV 15 mls/hr .Q48H HERO Administration PFSH Medical History Cancer Anxiety Alcohol use High cholesterol Migraine headache Asthma Non-smoker History of stress test Thyroid nodule DVT (deep venous thrombosis) Bilateral pulmonary embolism History of miscarriage, currently Perianal abscess Home Medications ?Medication ?Instructions ?Recorded ?Last Taken ?Type duloxetine 60 mg capsule,delayed 60 mg PO DAILY Unknown History release drospirenone (contraceptive) 4 mg 1 tab PO DAILY #84 t abs 01/01/25 Unknown Rx (28) tablet (Slynd) cholecalciferol (vitamin D3) 50 50 mcg PO DAILY Unknown History mcg (2,000 unit) tablet (Vitamin D3) hydroxyzine pamoate 25 mg capsule 25 mg PO TID PRN PRN anxiety 05/06/25 Unknown History Allergy/AdvReac Type Severity Reaction Status Date / Time No Known Allergies Allergy Verified 05/12/25 09:50 Family History Grandmother Breast cancer Grandfather No problems noted. 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 05/12/25 1032 <Electronically signed by Leighton aguilar MD> Date _ Leighton Copeland MD Cosigner Signature: Date CC: ~ Signed [facility] Work Phone: 1(552) 819-480309-16-2025 History and physical note [facility] Medical Records Department [address] [place] [address] [place] [address] History & Physical Exam 05/12/25 1058 MR#: [id number] Acct: [id number] Name: YENIHAMLET TAPIARICIA Rep # :[id number] : 1985 39 From: Gómez Quick PCP: Dr. Ortega Medrano MD Status:[facility] Location: [place] [address] History and Physical Date of Admission: 05/12/25 Date of Service: 04/17/25 MR#: [id number] Acct: [id number] Name: MEMEMARILYNHAMLET TAPIARICIA Rep #: [id number] : 1985 Provider: Dr. Gómez Casiano MD Age/Sex: 39/F Location: [facility] Status: Signed Intake Vital Signs 07/28/2409:30 04/17/2509:28 Height 5 ft 3 in 5 ft [...] Known Allergies Allergy (Verified 04/17/25 09:29) Medications ?Medication ?Instructions ?Recorded ?Confirmed ?Type duloxetine 60 mg capsule,delayed 60 mg PO DAILY 07/25/23 04/17/25 History release cholecalciferol (vitamin D3) 10 10 mcg PO QDAY 07/28/24 04/17/25 History mcg (400 unit) capsule drospirenone (contraceptive) 4 mg 1 tab PO DAILY #84 tabs 01/01/25 5 Rx (28) tablet (Slynd) [facility] Medical History (Updated 04/17/25 @ 15:[address] Gómez Casiano MD) Thyroid nodule DVT (deep venous thrombosis) Bilateral pulmonary embolism History of miscarriage, currently Perianal abscess Exposure to blood Surgical History History of laparoscopic cholecystectomy Family History Grandmother Breast cancerGrandfather No problems noted. 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 She underwent biopsy of a right superior and right inferior nodule with Blackfoot 5 and 3 ratings, respectively. The latter nodule then underwent Afirma testing with a "benign" diagnosis They do not experience difficulty with swallowing. They do not complain of a new cough. They do notappreciate new voice changes. They do have a history ofsnoring/sleep apnea. Additionally, their weight has been steadily increasing and they report they areat their heaviest of all time. There also is a history of significant recent fatigue. Mrs. Teixeira declares that she awakens feeling unrefreshed and suffers from frequent nighttime awakenings. They also report a history of heavysweating and have a history of heat intolerance. [...] 1.4 cm. Within this lobe radiology identified anodule measuring 0.7 cm in greatest dimension rated TI-RADS 3. Other tests include: TSH: 1.84, freeT4: 1.00 ROS General General: Yes weight change and fatigue; No appetite, colon cancer, breast cancer or weakness HEENT HEENT: Yes swollen glands; No difficulty swallowing, eye injury, eye surgery or hoarseness Endo Endocrine: Yes thyroid disease and thyroid cancer; No diabetes mellitus, Hair loss, heat intolerance or cold intolerance Skin Skin: No rash or changing moles Musc Musculoskeletal: No back problems, arthritis, rheumatoid arthritis, gout or joint pain Cardio Cardiovascular: No murmur, pacemaker, heart disease, atrial fibrillation, high blood pressure, heart attack, heart stent, palpitations, shortness of breath with exertion or chest pain Psych Psychiatric: Yes anxiety; No depression or hearing voices Resp Respiratory: No shortness of breath, No sleep apnea, No cough, No COPD, No asthma, No emphysema andNo wheezing Gastro Gastrointestinal: No abdominal pain, No nausea or vomiting, No diarrhea, No constipation, No blood in stool, No acid reflux, Yes hemorrhoids, No ulcers, Yesgallbladder problem and No black,tarry stools Raghavendra Hematologic: No blood thinners, No blood disorders, No bleeding, No anemia and Yes blood clots Neuro Neurologic: No numbness, No tingling and No weakness Exam Const General: cooperative and anxious Orientation: alert, awake and oriented x3 Neck Other: Subtly palpable right thyroid nodule is mildly tender to palpation. Mildly disparate right thyroid lobe greater than left thyroid lobe. No palpable cervical lymphadenopathy. Assessment and Plan Assessment and Plan (1) Multiple thyroid nodules: Status: Acute Comment: Patient is 39-year-old female, euthyroid from an endocrine standpoint, who makessurgical consultation related to recently diagnosed thyroid nodules that were biopsied and right superior nodule was deemed suspicious for papillary thyroid carcinoma. Nodule reportedly found during routine exam and patient has no history of endocrine disorders. A second nodule was also biopsied with a "atypical" result, however, reflex Afirma testing showed this to be benign. Therefore, it would appear patient has a 2.2 cm Blackfoot 5 nodule suspicious forunifocal PTC. I held a lengthy conversation today with regarding her surgical options. I suggested that [place] [employer] would generally recommend thyroid lobectomy with isthmusectomy in this setting (low risk PTC) as a means of trying to mitigate the risks around surgery?specifically for this procedure including hypoparathyroidism and recurrent laryngeal nerve injury. Hand drawings were used to illustrate relevant anatomy. I did go on to describe the propensity of papillary thyroid cancer for leeanne spread. I stated that prophylactic central neck dissection is no longer standard and instead suggested we proceed with a preoperative soft tissue ultrasound for lymph node mapping purposes. I shared that if any concerning lymp h nodes were identified we would have to proceed with FNA biopsy and determine how this impacts theoverall operative plan. Concerning lateral neck nodes could require tertiary referral if there is ahigh likelihood of needing lateral neck dissection. Otherwise, I stated her care should be able aline managed here in [place]. Lastly, I described the implications for risk stratification on papillarythyroid cancer as it relates to lymph node metastasis and the need for radioactive iodine therapy. I connected this back to choice for surgery and suggested that postoperative treatment with DAY and surveillance with thyroglobulin monitoring is simpler following total thyroidectomy, but maintained these were not reasons in and of themselves to exclude initial ARIS recommendation for lobectomy. I assured her that completionthyroidectomy should be possible if indicated simply preserving of urgent anatomic planes. Patient states that she is now leaning towards probably deciding for lobectomy with isthmusectomy but wishes to discuss things further withher . Plan: ? Await patient response on total thyroidectomy versus thyroid lobectomy with isthmusectomy using intraoperative nerve monitoring ? Soft tissue ultrasound for lymph node mapping I have examined the patient the following changes are noted: Patient completed lymph node mapping which revealed no suspicious adenopathy. She also visited with her family and has elected to proceed with total thyroidectomy with intraoperative nerve monitoring. She presents today for the procedure.Today Iaddended her consent to include the possibility of central lymph node dissectionin the eventthat we would find adenopathy that was clinically suspicious, but shared with her I felt this was unlikely given her history. We otherwise reviewed the expectation of the procedure and postprocedure recovery directions. Questions were answered from patient and her family. Will now proceed to the operating room for total thyroidectomy with intraoperative nerve monitoring and possible central neck (lymph node) dissection if clinically indicated. Postoperative observational stay planned. 05/12/25 1100 Cosigner Signature (if applicable): CC: Dr. Ortega Medrano MD; Dr. Gómez Casiano MD~ Signed [facility]09-16-2025 [facility] Medical Records Department [address] [place] [address] History Physical Exam 05/12/25 1058 MR#: [id number] Acct: [id number] Name: HAMLET TEIXEIRA Rep #: [id number] : 1985 39 From: Gómez Casiano MD PCP: Dr. Ortega Medrano MD Status:[facility] Location: [place] [address] History and Physical Date of Admission: 05/12/25 Date of Service: 04/17/25 MR#: [id number] Acct: [id number] Name: HAMLET TEIXEIRA Rep #: [id number] : 1985 Provider: Dr. Gómez Casiano MD Age/Sex: 39/F Location: [facility] Status: Signed Intake Vital Signs 07/28/2409:30 04/17/2509:28 Height 5 ft 3 in 5 ft [...] capsule,delayed 60 mg PO DAILY 07/25/23 04/17/25 History release cholecalciferol (vitamin D3) 10 10 mcg PO QDAY 07/28/24 04/17/25 History mcg (400 unit) capsule drospirenone (contraceptive) 4 mg 1 tab PO DAILY #84 tabs 01/01/25 04/17/25 Rx (28) tablet (Slynd) PFSH Medical History (Updated 04/17/25 @ 15:[address] Gómez Casiano MD) Thyroid nodule DVT (deep venous thrombosis) Bilateral pulmonary embolism History of miscarriage, currently Perianal abscess Exposure to blood Surgical History History of laparoscopic cholecystectomy Family History Grandmother Breast cancerGrandfather No problems noted. 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 She underwent biopsy of a right superior and right inferior nodule with Blackfoot 5 and 3 ratings, respectively. The latter nodule then underwent Afirma testing with a "benign" diagnosis They do not experience difficulty with swallowing. They do not complain of a new cough. They do not appreciate new voice changes. They do have a history of snoring/sleep apnea. Additionally, their weight has been steadily increasing and they report they are at their heaviest of all time. There also is a history of significant recent fatigue. Mrs. Teixeira declares that she awakens feeling unrefreshed and [...] 1.84, free T4: 1.00 ROS General General: Y (more content not included)...[facility]09-16-2025 Consult note [facility] Medical Records Department [address] [place] [address] Pre-Anesthesia Evaluation 05/12/25 1018 MR#: [id number] Acct: [id number] Name: HAMLET TEIXEIRA Rep # :[id number] : 1985 39 From: Leighton Copeland MD PCP: Dr. Ortega Medrano MD Status:KELLY Reyes [facility] [place] Y Race: C Location: [place] [address] ASA Classification* ASA Classification ASA Classification: 2 Assessment & Plan Anesthesia* Anesthesia Assessment Anesthesia Assessment: Discussed sedation and/or anesthesia options, risks, benefits, and alternatives with patient/parents/legal guardian/POA. Questions invited. The patient/parents/legal guardian/POA seems to understand and agrees to proceedwith anesthesia plan. Reviewed the physical assessment, medical history, allergy history and patient home medications list prior to surgery/procedure/anesthetic and documented any changes. Performed airway and anesthesia risk assessments. Anesthesia Type Anesthesia Type: General (Consider GlideScope for intubation.) History Source History Obtained from:: Patient and Chart Anesthesia Focused Assessment* Temperature: 99.5 F Pulse Rate: 73 Blood Pressure: 148/84 Respiratory Rate: 18 Pulse Ox: 99 Oxygen Delivery Method: Room Air Airway Assessment Mouth opens: >3 cm Mallampati Score: IV Teeth Condition: Caps/Crowns (Patient has a cap On her right lower molar.) Neck Range of motion (ROM): Full ROM Labs Anesthesia Preop lab: CBC WBC 11.0 K/mm3 (4.4-11.0) 02/05/25 12:02/05/25 RBC 4.31 M/mm3 (4.2-5.4) 02/05/25 12:02/05/25 Hgb 13.0 g/dL (12.0-15.0) 02/05/25 12:02/05/25 Hct 39.8 % (37-47) 02/05/25 12:02/05/25 Plt Count 382 K/mm3 (150-450) 02/05/25 12:11 02/05/25 CHEMISTRY Potassium 4.1 mmol/L (3.3-5.1) 02/05/25 12:02/05/25 Sodium 138 mmol/L (133-145) 02/05/25 12:02/05/25 Phosphorus 2.6 mg/dL (2.7-4.5) L 11/15/24 08:56 11/15/24 BUN 7 mg/dL (4-19) 02/05/25 12:02/05/25 Creatinine 0.82 mg/dL (0.70-1.20) 02/05/25 12:02/05/25 Glucose 93 mg/dL (70-99) 02/05/25 12:02/05/25 TSH 1.840 uIU/mL (0.300-4.200) 02/05/25 12:11 01/25 10/21 COAG PT 12.9 SECONDS (11.7-14.9) 04/02/20 11:05 HCG, Quant 37901 mIU/mL (1-3) H 10/27/19 15:35 10/27/19 Pre-Assessment Diagnosis/Proposed Procedure Planned Operative Procedure(s): TOTAL THYROIDECTOMY Anesthesia History 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 When Was Last Pacemaker Check QUESTION #4 FULL TEXT: You/Your Family Experience fever (hyperthermia) with Anesthesia Last Oral Intake Last Oral intake: Last Oral Intake NPO since 21:00 05/12/25 09:53 Meds taken in AM with sips of No 05/12/25 09:53 water? Meds patient instructed to take am of surgery PONV PONV - power digger operator: PONV - power digger operator Female Yes 05/06/25 10:07 HX of Motion Sickness No 05/06/25 10:07 HX of N/V After Surgery Yes 05/06/25 10:07 Non-Smoker Yes 05/06/25 10:07 Duration of Surgery greater Yes 05/06/25 10:07 than 60 minutes Number of Risk Factors 4 05/06/25 10:07 PONV Score Severe Risk 05/06/25 10:07 Height & Weight Height & Weight: Anesthesia: Height & Weight Height 5 ft 3 in 05/12/25 09:53 Weight: 104.326 kg 05/12/25 09:53 Body Mass Index (BMI) 40.7 05/12/25 09:53 Respiratory Assessment Respiratory Assessment - power digger operator: Respiratory Tract Infection Hx - power digger operator Hx Respiratory Tract Infection No 05/06/25 10:07 STOP Sleep Apnea STOP Sleep Apnea - power digger operator: STOP Sleep Apnea - power digger operator Hx Hypertension No 05/06/25 10:07 Hx Sleep Apnea No 05/06/25 10:07 CPAP BIPAP Do you snore loudly (louder Yes 05/06/25 10:07 than talking or can be heard Do you often feel tired/ Yes 05/06/25 10:07 fatigued/ sleepy during daytime? Has anyone observed you stop Yes 05/06/25 10:07 breathing during sleep? STOP Results Positive 05/06/25 10:07 QUESTION #5 FULL TEXT : Do you snore loudly (louder than talking or can be heard through closeddoors)? Tobacco Use History Tobacco Use History - power digger operator: Tobacco Use History - power digger operator Tobacco Use Smoking Status Never smoker 05/06/25 10:07 Hx Tobacco Use No 05/06/25 10:07 Years Smoking Packs Smoked per Day Smoking Cessation Date was within the last 15 years Hx Smoking Cessation Date Hx Smoking Cessation Counseling Hematologic Medial History Hematologic Hx - power digger operator: Hematologic Medical Hx - sample steamer Hx of Blood Transfusion No 05/06/25 10:07 Hx of Transfusion in last 3 No 05/06/25 10:07 Months Date of Last Transfusion (if within last 3 months) Ever experience any problems No 05/06/25 10:07 with transfusion(s)? Specify any problems Hx of Preganancy in last 3 No 05/06/25 10:07 Months Nurse Filling Out Transfusion DSCHRIBER 05/06/25 10:07 & Questions: Date: 05/06/25 05/06/25 10:07 Time: 10:08 05/06/25 10:07 Patient unable to answer at this time (ie. confused, unrespo /Reproduction History /Reproductive History - power digger operator: /Reproductive Hx- power digger operator Hx Now No 05/06/25 10:07 Gestational Age (in weeks): EDC: Hx Hx Para Hx Section SAB No 05/06/25 10:07 Active Medications Active Medications: Current Medications Generic Name Dose Route Start Last Admin Trade Name Freq PRN Reason Stop Dose Admin Lactated Ringer's 1,000 mls @ 15 mls/hr 05/12/25 10:00 05/12/25 09:59 IV 15 mls/hr .Q48H HERO Administration PFSH Medical History Cancer Anxiety Alcohol use High cholesterol Migraine headache Asthma Non-smoker History of stress test Thyroid nodule DVT (deep venous thrombosis) Bilateral pulmonary embolism History of miscarriage, currently Perianal abscess Home Medications ?Medication ?Instructions ?Recorded ?Last Taken ?Type duloxetine 60 mg capsule,delayed 60 mg PO DAILY Unknown History release drospirenone (contraceptive) 4 mg 1 tab PO DAILY #84 t abs 01/01/25 Unknown Rx (28) tablet (Slynd) cholecalciferol (vitamin D3) 50 50 mcg PO DAILY Unknown History mcg (2,000 unit) tablet (Vitamin D3) hydroxyzine pamoate 25 mg capsule 25 mg PO TID PRN PRN anxiety 05/06/25 Unknown History Allergy/AdvReac Type Severity Reaction Status Date / Time No Known Allergies Allergy Verified 05/12/25 09:50 Family History Grandmother Breast cancer Grandfather No problems noted. 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 05/12/25 1032 lauren SANTOS> Date _ Leighton Copeland MD Cosigner Signature: Date CC: ~ Signed [facility]09-02-2025 Radiology Diagnostic study note [facility] Imaging Services [address] [place] [id number] Head/Neck Soft Tissue MR#: [id number] Acct: [id number] Name: HAMLET TEIXEIRA Rep #: [id number] : 1985 F 39 From: Rick Cox MD PCP: Dr. Ortega Medrano MD Status: RE G CLI Study:Head/Neck Soft Tissue Date of Exam: 04/23/25 Exam# [id number] Ordering Dr: Gillian Casiano MD ADDENDUM by Dr. Ian Cox MD on 04/28/25 at 1320 The lymph node as a normal appearing fatty hilum and good cortical thickness. This suggests benignity. Reading Location: [facility] 04/28/25 1321 Date cc: Dr. Ortega Medrano MD; Dr. Gómez Casiano MD ~* Signed PROCEDURE: HEAD/NECK SOFT TISSUE 04/23/2025 REASON FOR EXAM: LYMPH NODE MAPPING TECHNIQUE: HEAD/NECK SOFT TISSUE COMPARISON: None FINDINGS: Lymph node mapping was performed. The largest lymph node is in the right side of the neck in zone 2. This measures 3.3 cm x 1.9 cm x 0.6 cm. US/Head/Neck Soft Tissue IMPRESSION: 3.3 cm x 1.9 cm x 0.6 cm lymph node in zone 2 on the right side of the neck. Reading Location: [id number] CC: Dr. Ortega Medrano MD; Dr. Gómez Casiano MD ~ Supervisor Hospitality House: Signed [facility]08-22-2025 Evaluation note* Diagnosis Onset Date Resolution Status Admit Date Multiple thyroid nodules acute April 17, 2025 9:12am [facility] Work Phone: 1(773) 710-754808-22-2025 Evaluation note* Diagnosis Onset Date Resolution Status Admit Date Multiple thyroid nodules acute April 17, 2025 9:12am Status post total thyroidectomy acute May 12, 2025 2:52pm [facility] Work Phone: 1(249) 229-164408-22-2025 Evaluation note* Diagnosis Onset Date Resolution Status Admit Date Multiple thyroid nodules acute April 17, 2025 9:12am Status post total thyroidectomy acute May 12, 2025 2:52pm Status post total thyroidectomy acute May 22, 2025 8:01am [facility] Work Phone: 1(584) 830-922107-21-2025 Note* Addendum Note - Amirah Nice RN - 03/16/2025 2:03 PM EDTAddended by: AMIRAH NICE on: 03/16/2025 02:03 PM Modules accepted: Orders [facility]07-21-2025 Miscellaneous Notes* Addendum Note - Amirah Nice RN - 03/16/2025 2:03 PM EDTAddended by: AMIRAH NICE on: 03/16/2025 02:03 PM Modules accepted: Orders * Addendum Note - Amirah Nice RN - 03/16/2025 2:01 PM EDTAddended by: AMIRAH NICE on: 03/16/2025 02:01 PM Modules accepted: Orders [facility] Note* Addendum Note - Amirah Nice RN - 03/16/2025 2:01 PM EDTAddended by: AMIRAH NICE on: 03/16/2025 02:01 PM Modules accepted: Orders [facility]07-21-2025 NoteHNO ID: [id number] Author: BALTAZAR COURTNEY MD Service: ? Author [...] applied and the patient tolerated the procedure well.[facility]07-21-2025 History of Present illness Narrative* Baltazar Courtney MD - 03/16/2025 1:45 PM EDT Preoperative diagnosis: Multinodular goiter Postoperative diagnosis: The same Procedure: Ultrasound-guided fine-needle aspiration of 2 dominant right sided thyroid nodules Surgeon: Sudhir Procedure: Ultrasound of the right thyroid gland in the lower pole revealed the nodule in question.I prepped the skin with alcohol. I injected [...] tolerated the procedure well. [facility] Instructions* Patient Instructions* Amirah Nice RN - 03/16/2025 1:44 PM EDT The following instructions are important for you related to your office visit today with the [facility]. Instructions After THYROID FINE [...] you have any questions or concerns @ [phone]. Please make an appointment to follow up in one week with your physician and [facility] If you note any additional difficulties, questions, or concerns, you should contact our office immediately @ [phone] and ask to be transferred to the General Surgery department. [facility]2025 NoteHNO ID: [id number] Author: AMIRAH NICE RN Service: ? Author [...] has been communicated to the patient or surrogate.[facility]07-21-2025 Procedure note* Amirah Nice RN - 03/16/2025 1:33 PM EDT UNIVERSAL PROTOCOL / SAFETY CHECKLIST Procedure to [...] been communicated to the patient or surrogate. [facility]07-21-2025 Procedure note* Amirah Nice RN - 03/16/2025 1:33 PM EDT UNIVERSAL PROTOCOL / SAFETY CHECKLIST Procedure to [...] the patient or surrogate. [facility]2025 NoteHNO ID: [id number] Author: BALTAZAR COURTNEY MD Service: ? Author [...] resp. rate 14, height 160 cm (5' 3"), weight 103.9 kg (229 lb), SpO2 98%, [...] risk. - Patient to schedule FNA with assignment desk editor; procedures performed on Mondays and Tuesdays. Diagnoses: (E04.2) Multinodular goiter (primary encounter diagnosis) A letter was sent to Dr. Ortega Medrano MD, MD indicating the above finding for this patient. Return to Clinic: The patient is instructed to follow-up with me 1 week post operatively. (more content not included)...[facility]07-18-2025 History of Present illness Narrative* Baltazar Courtney MD - 03/13/2025 2:14 PM EDT HISTORY AND PHYSICAL Hamlet Teixeira 1985 REFERRING [...] nourished, well hydrated in no acute distress. Thepatient is oriented to time, place, and person. VITALS: Blood pressure 148/82, pulse 96, temperature 36.2 C (97.1 F), temperature source Temporal, resp. rate 14, height 160 cm (5' 3"), weight 103.9 kg (229 lb), SpO2 98%, not currently . HEENT: Normal cephalic, ataumatic, pupils are equally round, sclera are anicteric, mucous membranesare moist, oropharynx is clear. Neck has no [...] risk. - Patient to schedule FNA with assignment desk editor; procedures performed on Mondays and Tuesdays. Diagnoses: (E04.2) Multinodular goiter (primary encounter diagnosis) A letter was sent to Dr. Ortega Medrano MD, MD indicating the above finding for this patient. Return to Clinic: The patient is instructed to follow-up with me 1 week post operatively. Baltazar Courtney III, MD * Yelitza Whitlock, CLAIM TECHNICIAN - 03/09/2025 2:19 PM EDT REVIEW OF SYSTEMS: General: The patient notes [...] back pain/injury, denies back problems, denies sciatica, deniesknee/foot trouble, denies arthritis, or denies gout. When was patient's last Mammogram screening? N/A Last Colonoscopy: N/A Yelitza Whitlock LPN documented [facility]-2025 NoteHNO ID: [id number] Author: YELITZA WHITLOCK LPN Service: ? Author [...] screening? N/A Last Colonoscopy: N/A Yelitza Whitlock [facility]06-19-2025 Radiology Diagnostic study note [facility] Imaging Services [address] [place], [place] [id number] Thyroid MR#: [id number] Acct: [id number] Name: HAMLET TEIXEIRA Rep #: [id number] : 1985 F 39 From: Pet er Peer DO PCP: Dr. Ortega Medrano MD Status: RE G CLI Study:Thyroid Date of Exam: 02/12/25 Exam# [id number] Ordering Dr: Ortega Medrano MD PROCEDURE: THYROID [...] no more than 2 nodules. Reading Location: [facility] CC: Dr. Ortega Medrano MD ~ Supervisor Hospitality House: Signed [facility]12-04-2024 NoteHNO ID: [id number] Author: YORDY ANDERSEN MD Service: ? Author [...] 875 MG-POTASSIUM CLAVULANATE 125 MG TABLET Yordy Andersen, [facility]12-04-2024 History of Present illness Narrative* Yordy Andersen MD - 07/30/2024 3:34 PM EST Patient presents with: Cough: Sinus issues, sore [...] TABLET Yordy Andersen MD documented in [facility]12-[facility] History of Present illness Narrative* Gómez Younger MD - 07/29/2024 3:00 PM EST @ASSESSMENTNAOMI@ Assessment: Diagnosis Plan 1. Perianal abscess @ELAYNE@ Plan: 1. Postop education and instructions are [...] She has no bleeding or drainage. She hasno discomfort. Office exam shows total healing to [...] and is nearly invisible. There are no newlesions. There is no current evidence of fistula. Skin: General: Skin is warm and dry. Neurological: General: No focal deficit present. Mental Status: She is alert and oriented to person, place, and time. Psychiatric: Mood and Affect: Mood normal. Behavior: Behavior normal. Thought Content: Thought content normal. Judgment: Judgment normal. ROS: Review of Systems as recordedby the medical secretary has been reviewed by me, and I [...] 07/29/2024 at 3:29 PM. documented in this [facility]12-03-2024 Instructions* Patient Instructions* Maryana Spivey - 07/29/2024 3:00 PM EST -Healed well. documented in this [facility]11-11-2024 History of Present illness Narrative* Gómez Younger MD - 07/07/2024 2:00 PM EST @ASSESSMENTBEGINPHANTOM@ Assessment: Diagnosis Plan 1. Perianal abscess [...] the area sterilized with Betadine and using 0.5%sensorcaine local anesthetic, the abscess was drained using a skin punch biopsy without difficulty.Loculations were broken down and the area completely [...] ROS: Review of Systems as recordedby the medical secretary has been reviewed by me, and I [...] 07/07/2024 at 2:51 PM. documented in this [facility]SOhio[facility]* Diagnosis Onset Date Resolution Status Acne acute DVT (deep venous thrombosis) acute Menorrhagia with regular cycle acute Encounter for routine gynecological examination noneactive [facility] Work Phone: Evaluation note* Diagnosis Perianal abscess- Primary Abscess of anal and rectal regions [facility] Diagnosis Perianal abscess- Primary Abscess of anal and rectal regions [facility]* Diagnosis Acute non-recurrent sinusitis, unspecified location- Primary documented in this encounter [facility] noteNo assessment information availableWBarberton Citizens [facility] Work Phone: Evaluation note* Diagnosis Multinodular goiter- Primary Nontoxic multinodular goiter [facility]* Diagnosis Multinodular goiter- Primary Nontoxic multinodular goiter documented in this encounter [facility] note Author Gómez Casiano [facility] Note Date/Time May 22, 2025 8:22am [facility] [address] [place] [address] OFFICE VISIT Date of Service: 05/22/25 MR#: [id number] Acct: [id number] Name: HAMLET TEIXEIRA p #: [id number] : 1985 Provider: Dr. Omer Casiano MD Age/Sex: 39/F Location: [facility] Status: Signed Intake Vital Signs 05/12/25 16:47 Height 5 ft 3 in Intake Visit Reasons: S/P TOTAL THYROIDECTOMY 05-12 Chief Complaint: s/p total thyroidectomy 05-12 Is patient in pain?: No Allergies No Known Allergies Allergy (Verified 05/22/25 08:08) Medications ?Medication ?Instructions ?Recorded ?Confirmed ?Type duloxetine 60 mg capsule,delayed 60 mg PO DAILY 05/22/25 History release drospirenone (contraceptive) 4 mg 1 tab PO DAILY #84 t abs 01/01/25 05/22/25 Rx (28) tablet (Slynd) cholecalciferol (vitamin D3) 50 50 mcg PO DAILY 05/22/25 History mcg (2,000 unit) tablet (Vitamin D3) hydroxyzine pamoate 25 mg capsule 25 mg PO TID PRN PRN anxiety 05/06/25 05/22/25 History levothyroxine 150 mcg capsule 150 mcg PO DAILY 5 weeks #35 caps 05/13/25 05/22/25 Rx Subjective Details: Patient presents following total thyroidectomy with intraoperative nerve monitoring on 05/12/2025. Since hospital discharge they have been doing well. They report no postoperative pain. They have not experienced symptoms of numbness and tingling. They have no wound concerns since removing Steri-Strips which appear to cause some local irritation. She goes on to state that she feels better than preop and that she is doing things she did not do normally previously due to the lack of energy and gives example of recently painting her bathroom. In the same way she acknowledges that she has been trying to not overdo it. She denies any swallowing difficulty. She shares that there has been a "slight change" in her voice with some slight hoarseness. They confirm regular thyroid supplementation without interruption. Objective Details: Constitutional: No acute distress, cooperative, appreciative Neck: Slight erythema along right side of patient's lower cervical incision and slight nodule along the left. No particular tenderness. Coding Level of Care Code Global Post Op Diagnoses Status post total thyroidectomy Z98.890; Z90.89 [facility] Medical History Cancer Anxiety Alcohol use High cholesterol Migraine headache Asthma Non-smoker History of stress test Thyroid nodule DVT (deep venous thrombosis) Bilateral pulmonary embolism History of miscarriage, currently Perianal abscess Surgical History History of laparoscopic cholecystectomy Family History Grandmother Breast cancer Grandfather No problems noted. 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 She is doing remarkably well postoperatively and appears to be benefiting from newfound energy levels. She is also well-healing on exam. 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 Additionally reviewed the pathology from her operation which showed only evidence of lymphocytic thyroiditis and some hyperplasia but was overall ruled "benign". It is unclear to me how she had a prior FNA biopsy given a Blackfoot 5 diagnosis and our final pathology appears clearly benign. For her part Mrs. Teixeira states she remains thankful for the course of action that was taken and the way she feels presently. Will plan to have a second follow-up visit 5 weeks postop with pre-clinic laboratories to determine if her thyroid hormone supplementation is appropriate. Plan: ? Repeat thyroid function testing prior to second postoperative visit in clinic ? Patient encouraged to begin applying either vitamin E oil or cocoa butter to her incision site twice daily ? Patient cleared to return to work next week ? Request review of pathology to determine if there is an explanation for the discrepancy between biopsy and final path reports 05/22/25 1319 <Electronically signed by Gómez Casiano MD> Date _ Gómez Casiano MD [facility] Signature: Date (if applicable) CC: Dr. Ortega Medrano MD ~ [facility] Work Phone: Reason for referral (narrative)No reason for referral information availableWBarber[facility] Work Phone: Reason for visit Narrative* Consult, Test, Treat (Routine) - Closed Specialty Diagnoses / Procedures Referred By Contac t Referred To Contact General Surgery / GENERAL SURGERY Diagnoses Thyroid nodule fna right thyroid x2 30min Procedures FINE NEEDLE ASPIRATION BX W/O IMG GDN 1ST LESION FINE NEEDLE ASPIRATION BX W/O IMG GDN EA ADDL SURGERY 30 Baltazar Courtney MD [address] [place] [place] [address] Phone: tel: fax: Baltazar Courtney MD [address] [place] [address] Phone: tel: fax: Referral ID Status Reason Start Date Expiration Date Visits Re quested Visits Authorized [id number] Closed 03/12/2025 08/26/2025 1 1 [facility] Summary Purpose Family History No Family History Records Found Relationship Condition Age at Onset Recorded Date/T leo grandmother Malignant neoplasm of breast Unknown father Hypertension Unknown Diabetes mellitus Unknown mother Hypertension Unknown Advance Directives No Advanced Directives Records Found Advance Directive Response Recorded Date/ Time Living Will No May 07, 2021 7:56pm Power of Environmental Compliance Officer No April 7:56pm Advance Directive Response Recorded Date/ Time Do you have a Healthcare Power of Environmental Compliance Officer? 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) ACNE, EXCESSIVE AND FREQUENT CYCLE Reason for Visit Acne DVT (deep venous thrombosis) Menorrhagia with regular cycle Encounter for routine gynecological examination Chief Complaint Admit Date [employer] [facility] 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 REHIRE y 2024 10:22am 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 October 25, 2024 7:16 am 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 November 15, 2024 8:4 4am Chief Complaint Admit Date [employer] [facility] 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 REHIRE uar 2024 10:22am 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 October 25, 2024 7:16 am 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 November 15, 2024 8:4 4am THYROMEGALY February 12, 2025 11:2 4am Chief Complaint Admit Date THYROMEGALY February 12, 2025 11:2 4am DISCUSS THYROID SX April 17, 2025 9: 12am Chief Complaint Admit Date THYROMEGALY February 12, 2025 11:2 4am DISCUSS THYROID SX April 17, 2025 9: 12am LYMPH NODE MAPPING April 23, 2025 7: 24am Reason for Visit Admit Date Multiple thyroid nodules April 17 9:12am Chief Complaint Admit Date THYROMEGALY February 12, 2025 11:2 4am DISCUSS THYROID SX April 17, 2025 9: 12am LYMPH NODE MAPPING April 23, 2025 7: 24am Total Thyroidectomy w/IONM April 10:58am Total Thyroidectomy w/IONM April 2:52pm Total Thyroidectomy w/IONM April 7:42am Reason for Visit Admit Date Multiple thyroid nodules April 17 9:12am Status post total thyroidectomy Septembe r 2024 2:52pm Chief Complaint Admit Date THYROMEGALY February 12, 2025 11:2 4am DISCUSS THYROID SX April 17, 2025 9: 12am LYMPH NODE MAPPING April 23, 2025 7: 24am Total Thyroidectomy w/IONM April 10:58am Total Thyroidectomy w/IONM April 2:52pm Total Thyroidectomy w/IONM April 7:42am S/P TOTAL THYROIDECTOMY 05-12April 282024 8:01am Reason for Visit Admit Date Multiple thyroid nodules April 17 9:12am Status post total thyroidectomy Septembe r 2024 2:52pm Status post total thyroidectomy Septembe r 2024 8:01am Additional Source Comments INFORMATION SOURCE (unrecogn ized section and content) DATE CREATED AUTHOR 02/15/2018 [facility] ([place] DATE CREATED AUTHOR AUTHOR'S ORGANIZ ATION 08/05/2018 [facility] DATE CREATED AUTHOR AUTHOR'S ORGANIZ ATION 08/05/2018 [facility] DATE CREATED AUTHOR AUTHOR'S ORGANIZ ATION 03/21/2019 [facility] DATE CREATED AUTHOR AUTHOR'S ORGANIZ ATION 07/31/2024 [facility] DATE CREATED AUTHOR AUTHOR'S ORGANIZ ATION 05/30/2025 [facility] DATE CREATED AUTHOR AUTHOR'S ORGANIZ ATION 06/13/2025 [facility] Care Teams (unrecognized sec tion and content) Team Status: Active Member Role Status Dates SOMMER FLYNN Family Provider Active Dr. Sommer Flynn MD Primary Care Provider Active Team Status: Inactive Member Role Status Dates Dr. Sommer Flynn MD Referring Provider Active Michell Woodard AIR COMPRESSOR ENGINEER, AIR COMPRESSOR ENGINEER-C Attending Provider Active Team Status: Inactive Member Role Status Dates Michell Woodard AIR COMPRESSOR ENGINEER, AIR COMPRESSOR ENGINEER-C Attending Provider, Referring Provider Active Dr. Sommer Flynn MD Primary Care Provider Active Astronomy Professor Relationship Specialty Start Date End Date Sommer Flynn MD [address] [place] [address] PCP - General Family Medicine 07/07/24 Astronomy Professor Relationship Specialty Start Date End Date Sommer Flynn MD [address] [place] [address] PCP - General Family Medicine 07/07/24 Astronomy Professor Relationship Specialty Start Date End Date Sommer Flynn MD [address] [place] [address] PCP - General Family Medicine 07/30/24 Team [...] 05, 2025 End: February 05, 2025 Dr. Ortgea Medrano MD Attending Provider Active Start: February [...] February 12, 2025 End: February 12, 2025 Astronomy Professor Relationship Specialty Start Date End Date Sommer Flynn MD PCP - General Family Medicine 07/30/24 Astronomy Professor Relationship Specialty Start Date End Date Ortega Medrano MD [address] [place], [place] [id number] PCP - General Family Medicine 03/09/25 Astronomy Professor Relationship Specialty Start Date End Date Ortega Medrano MD [address] [place], [place] [id number] PCP - General Family Medicine 03/09/25 Team [...] April 17, 2025 End: April 17, 2025 Team Status: Inactive Member Role/Relationship Status Dates Dr. Ortega Medrano MD Primary Care Provider Active Start: April 23, 2025 End: April 23, 2025 Dr. Gómez Casiano MD Attending Provider Active Start: April 23, 2025 End: April 23, 2025 Dr. Gómez Casiano MD Referring Provider Active Start: April 23, 2025 End: April 23, 2025 Team Status: Active Member Role/Relationship Status Dates Dr. Ortega Medrano MD Primary care physician Active Team Status: Inactive Member Role/Relationship Status Dates Dr. Ortega Medrano MD Primary care physician Active Start: February 05, 2025 End: February 05, 2025 Dr. Ortega Medrano MD Attending physician Active Start: February 05, 2025 End: February 05, 2025 Dr. Ortega Medrano MD Referring Provider Active Start: February 05, 2025 End: February 05, 2025 Team Status: Inactive Member Role/Relationship Status Dates Dr. Ortega Medrano MD Primary care physician Active Start: February 12, 2025 End: February 12, 2025 Dr. Ortega Medrano MD Attending physician Active Start: February 12, 2025 End: February 12, 2025 Dr. Ortega Medrano MD Referring Provider Active Start: February 12, 2025 End: February 12, 2025 Team Status: Inactive Member Role/Relationship Status Dates Dr. Ortega Medrano MD Primary care physician Active Start: April 17, 2025 End: April 17, 2025 Dr. Ortega Medrano MD Referring Provider Active Start: April 17, 2025 End: April 17, 2025 Dr. Gómez Casiano MD Attending physician Active Start: April 17, 2025 End: April 17, 2025 Team Status: Inactive Member Role/Relationship Status Dates Dr. Ortega Medrano MD Primary care physician Active Start: April 23, 2025 End: April 23, 2025 Dr. Gómez Casiano MD Attending physician Active Start: April 23, 2025 End: April 23, 2025 Dr. Gómez Casiano MD Referring Provider Active Start: April 23, 2025 End: April 23, 2025 Team Status: Active Member Role/Relationship Status Dates Dr. Ortega Medrano MD Primary care physician Active Start: May 12, 2025 Dr. Gómez Casiano MD Attending physician Active Start: May 12, 2025 Dr. Gómez Casiano MD Referring Provider Active Start: May 12, 2025 Dr. Gómez Casiano MD Nurse Practitioner Active Start: May 12, 2025 Team Status: Inactive Member Role/Relationship Status Dates Dr. Ortega Medrano MD Primary care physician Active Start: May 12, 2025 End: May 13, 2025 Dr. Gómez Casiano MD Admitting physician Active Start: May 12, 2025 End: May 13, 2025 Dr. Gómez Casiano MD Attending physician Active Start: May 12, 2025 End: May 13, 2025 Dr. Gómez Casiano MD Referring Provider Active Start: May 12, 2025 End: May 13, 2025 Team Status: Active Member Role/Relationship Status Dates Dr. Ortega Medrano MD Primary care physician Active Start: May 13, 2025 Dr. Gómez Casiano MD Admitting physician Active Start: May 13, 2025 Dr. Gómez Casiano MD Attending physician Active Start: May 13, 2025 Dr. Gómez Casiano MD Referring Provider Active Start: May 13, 2025 Dr. Gómez Casiano MD Nurse Practitioner Active Start: May 13, 2025 Team Status: Inactive Member Role/Relationship Status Dates Dr. Ortega Medrano MD Primary care physician Active Start: May 22, 2025 End: May 22, 2025 Dr. Ortega Medrano MD Referring Provider Active Start: May 22, 2025 End: May 22, 2025 Dr. Gómez Casiano MD Attending physician Active Start: May 22, 2025 End: May 22, 2025 Goals (unrecognized section and content) Goals [...] or prosecute any alcohol or drug abuse patient.[facility] the event this information is protected by the Federal Confidentiality of Alcohol and Drug Abuse Patient Records regulations: The Federal rules restrict any use of the information to criminally investigate or prosecute any alcohol or drug abuse patient.[facility] the event this information is protected by the Federal Confidentiality of Alcohol and Drug Abuse Patient Records regulations: The Federal rules restrict any use of the information to criminally investigate or prosecute any alcohol or drug abuse patient.[facility] the event this information is protected by the Federal Confidentiality of Alcohol and Drug Abuse Patient Records regulations: The Federal rules restrict any use of the information to criminally investigate or prosecute any alcohol or drug abuse patient.[facility] FOR RECORDS PERTAINING TO PATIENTS WHO [...] BE BASED ON THE PRIMARY CLINICAL RECORDS. [facility]. provides no warranty or guarantee of the accuracy or completeness of information in this document.
== END | disposition home or self-care (01) ==
LOC: SL 20:03
PROVIDERS: PCP Family Medicine; Referring Provider Internal Medicine Pulmonary Disease; Visit Provider Internal Medicine Pulmonary Disease
DX: G47.10 Hypersomnia, unspecified (principal)
CPT/HCPCS: 95810

== ENCOUNTER → 2025-06-24 | Outpatient (CLI) | payer OTHER, SELFPAY ==
--- OUTSIDE RECORDS SUMMARY | 2025-06-24 07:32 | XMS RPT_ITS | CCD ---
Author Organization [facility] Care Team Providers Care Ems Director Name Role Phone SOMMER FLYNN Unavailable Unavailable HRICS, COLT Unavailable Unavailable SOMMER FLYNN Unavailable Unavailable KAREN ARAIZA Unavailable Unavailable IMCA Unavailable Unavailable GINNA CANTU Unavailable Unavailable Dr. Sommer Flynn Referring Provider Vance SPECIAL EVENTS ASSISTANT, SPECIAL EVENTS ASSISTANTLibraC Michell Attending Provider [phone] Sommer Flynn MD Primary Care Provider Sommer [...] Provider Dr. Ortega Medrano MD Referring Provider Sommer Flynn MD Primary Care Provider Ortega Medrano MD Primary Care Provider Dr. Gómez Casiano MD Attending Provider Dr. Gómez Casiaon MD Referring Provider Dr. Ortega Medrano MD Primary Care Physician Dr. Ortega Medrano MD Attending Physician Dr. Gómez Casiano MD Attending Physician Dr. Gómez Casiano MD Nurse Practitioner [phone] Dr. Gómez Casiano MD Admitting Physician MIRANDE, SOMMER E Primary Care Unavailable BALTAZAR COURTNEY Attending Unavailable BETSY, ORTEGA E Primary Care Unavailable SCHORTEGA HERNANDEZ Primary Care Unavailable BALTAZAR COURTNEY Referring Unavailable BALTAZAR COURTNEY Attending Unavailable Mirande, Sommer Primary Care Unavailable Lali Gallagher Attending Unavailable Calvine, Sommer Referring Unavailable Ortega Medrano Referring Unavailable Gómez Casiano Attending Unavailable Ortega Medrano Primary Care Unavailable Gómez Casiano Attending Unavailable Gómez Casiano Consulting Unavailable Gómez Casiano Admitting Unavailable Gómez Casiano Referring Unavailable Ortega Medrano Primary Care Unavailable Gómez Casiano Attending Unavailable Gómez Casiano Consulting Unavailable Gómez Casiano Referring Unavailable SchOrtega hernandez Primary Care Unavailable Assessment, Health Risk Referring Unavaila ble Assessment, Health Risk Attending Unavaila ble Mirande, Sommer Primary Care Unavailable Assessment, Health Risk Referring Unavaila ble Assessment, Health Risk Attending Unavaila ble Mirande, Sommer Primary Care Unavailable Assessment, Health Risk Referring Unavaila ble Assessment, Health Risk Attending Unavaila ble Mirande, Sommer Primary Care Unavailable MirburakeYasmaniie Attending Unavailable Mirande, Sommer Primary Care Unavailable Gómez Casiano Admitting Unavailable Gómez Casiano Referring Unavailable Gómez Casiano Attending Unavailable Ortega Medrano Primary Care Unavailable Sibilia, Niles V Referring Unavailable Sibilia, Niles V Attending Unavailable Ortega Medrano Primary Care Unavailable Gómez Casiano Referring Unavailable Gómez Casiano Attending Unavailable Ortega Medrano Primary Care Unavailable SchOrtega hernandez Referring Unavailable Ortega Medrano Attending Unavailable Ortega Medrano Primary Care Unavailable SchOrtega hernandez Referring Unavailable SchOrtega hernandez Attending Unavailable Ortega Medrano Primary Care Unavailable Mirande, Sommer Primary Care Unavailable Lali Gallagher Referring Unavailable Lali Gallagher Attending Unavailable Ortega Medrano Referring Unavailable Gómez Casiano [...] 06, 2025 10:05am take 1 tablet by [facility] once daily cholecalciferol (VITAMIN D-3) 50 mcg [...] once daily. 11/28/2024 Active Start: 06-27-2024 FLUoxetine (ID OZAC) 20 mg capsule Take 20 mg [...] Start: 01-09-2025 take 1 capsule by mo [facility] every eight hours as needed hydrOXYzine pamoate [...] tablet Discontinued 1 {tbl} PO DAILY 84 September 15, 2024 10:04am January 01, 2025 [...] daily. 1 Package 12 06/15/2015 07/30/2024 Discontinued Pihkljyk-Og-Bau-Fe-FA ( VITAMIN) tab (1 source) Start: 04-23-2014 End: 07-30-2024 take 1 tablet by mouth once daily Tsqwvkfi-Rn-Ewa-Fe -FA ( VITAMIN) tab Take 1 tablet [...] plan 6 weeks PP. Residual codes; unclassified (1 source) Hypersomnia, unspecified; Translations: [Hypersomnia, unspecified] Onset: 5 Chronic Residual codes; unclassified (7 sources) Hereditary disorder [...] second nodule was also biopsied with a atypical result, however, reflex Afirma testing showed this to be benign. Therefore, it would appear patient has a 2.2 cm Tustin 5 nodule suspicious for unifocal PTC. I held a lengthy conversation today with Mrs. Teixeira regarding her surgical options. I suggested that [place] [employer] would generally recommend thyroid lobectomy [...] be able to be managed here in [place]. Lastly, I described the implications for risk [...] Test Name Value Interpretation Reference Range Facility CYTOLOGY, NON-CITY MAGISTRATE - FNA ONLY on 06-15-2025 CYTOLOGIC DIAGNOSIS Normal [facility] Comment on above: Result Comment: A. 2 ND OPINION CONSULTATION, CYTOLOGY - Thyroid, Right Lower Lobe, FNA ( Collected 03/16/2025): FINAL DIAGNOSIS: Atypia Of Undetermined Significance B. 2ND OPINION ADDITIONAL CONSULTATION, CYTOLOGY - Thyroid, Right Upper Middle, FNA: FINAL DIAGNOSIS: Suspicious For Papillary Thyroid Carcinoma at 1123 EDT Performed By: #### N ONGNFNA #### [facility] (DEFAULT) [address] [place] [address] Case Report Normal [facility] Comment on above: Result Comment: [facility] Cytology Report Case: [id number] Authorizing Provider: Gómez Casiano MD Collected: 06/15/2025 11:22 AM Ordering Location: [facility] Received: 06/15/2025 09:20 AM [place] Specimens: A) - THYROID FNA, Thyroid, Right Lower Lobe, FNA ( Collected 03/16/2025) B) - THYROID FNA, Thyroid, Right Upper Middle, FNA Performed By: #### N ONGNFNA #### [facility] (DEFAULT) [address] [place] [address] Clinical History Normal [facility] Comment on above: Result Comment: Rece ived is a request from Keiry Mckeon MD at [facility] for a second opinion consultation: 39 F with multiple thyroid nodules. [facility]: Atypia (A), Suspicious for PTC (B). Thyroidectomy @ [facility] reported as benign. Surgeon (Gómez Casiano MD) requests second opinion. Note: Afirma for Atypia (A) reported as benign. (Afirma not performed on part B). Performed By: #### N ONGNFNA #### [facility] (DEFAULT) [address] [address] Gross Description [facility] Comment on above: Result Comment: Subm itted from [facility], [facility] [address] are twenty two (22) slides labeled [id number]. An identifying pathology report is included along with Afirma report. Outside slides are returned in sixty (60) days under separate cover with our number recorded on them. Performed By: #### N ONGNFNA #### [facility] (DEFAULT) [address] [address] Professional Interpretation Performed at: [facility] Comment on above: Result Comment: For Immediate Release to Patient's [facility]? Yes [facility] [address] [address] Performed By: #### N ONGNFNA #### [facility] (DEFAULT) [address] [address] SURG PATH REQUESTon 06-12-20 Case Report [facility] Comment on above: Result Comment: Surg ical Pathology Report Case: [id number] Authorizing Provider: Keiry Mckeon MD Collected: 06/12/2025 02:28 PM Ordering Location: [facility] Received: 06/12/2025 02:28 PM [place] Pathologist: Meghann Carter MD Specimen: SURG PATH, Thyroid, total thyroidectomy Performed By: #### S URGP #### [facility] (DEFAULT) [address] [address] Clinical History Normal [facility] Comment on above: Result Comment: Rece ived is a request from Keiry Mckeon MD at [facility] for a second opinion consultation: 39 F with multiple thyroid nodules. FNA performed @[facility]: Atypia (A), Suspicious for PTC (B). Thyroidectomy @ [facility] reported as benign. Surgeon (Gómez Casiano MD) requests second opinion. Note: Afirma for Atypia (A) reported as benign. (Afirma not performed on part B). Performed By: #### S URGP #### [facility] (DEFAULT) [address] [place] [address] Diagnosis Comments [facility] Comment on above: Performed By: #### S URGP #### [facility] (DEFAULT) [address] [place] [address] Gross Description [facility] Comment on above: Result Comment: The following material(s) are received from [facility], [address] [place] [address], with an identifying surgical pathology report as well as [facility] Cytology report ([id number]) included for review: 11 H&E slide(s) labeled [id number]. Outside materials are returned in upon completion under separate cover with our number recorded on them. Grosser for this case was: Agnes Greg Performed By: #### S URGP #### [facility] (DEFAULT) [address] [place] [address] Microscopic Description A microscopic examination was performed. [facility] Comment on above: Performed By: #### S URGP #### [facility] (DEFAULT) [address] [place] [address] Pathologic Diagnosis [facility] Comment on above: Result Comment: Outs trevon Slides: [id number] (05/12/25) A. 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 Background thyroid with benign follicular nodular disease and patchy chronic lymphocytic thyroiditis. at 1105 EDT Performed By: #### S URGP #### [facility] (DEFAULT) [address] [id number] Professional Interpretation Performed at: [facility] Comment on above: Result Comment: Prof melany interpretation performed remotely at a secondary location, address on file. For Immediate Release to Patient's MyChart? Yes Performed By: #### S URGP #### [facility] (DEFAULT) [address] [phone] Kiarra 05-22-2025 CNPN Telephone ([facility]) HAMLET TEIXEIRA ([id number]) 1985 [facility] Date Time Provider Department 05/22/25 BALTAZAR COURTNEY GENS During your visit today, we recorded the [...] slides. Megan provided phone number to contact [facility] pathology and informed of link for second opinion: [email or web address] Yelitza Whitlock LPN Allergies As of Date: [...] Status:Closed by YELITZA WHITLOCK on 05/22/25 Normal [facility] Surgery Visit Reporton 05-22 Surgery Visit Report [facility] [address] [place] [address] [address] [place] [address] OFFICE VISIT Date of Service: 05/22/25 MR#: [id number] Acct: [id number] Name: HAMLET TEIXERIA Rep #: [id number] : 1985 Provider: Dr. Gómez pineda MD Age/Sex: 39/F Location: [facility] Status: Signed Intake Vital Signs 05/12/25 16:47 [...] She shares that there has been a slight change in her voice with some slight hoarseness. They confirm regular thyroid supplementation without interruption. Objective Details: Constitutional: No acute distress, cooperative, appreciative Neck: Slight erythema along right side of patient's lower cervical incision and slight nodule along the left. No particular tenderness. 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 It is unclear to me how she had a prior FNA biopsy given a Tustin 5 diagnosis and our final pathology appears [...] Patient enc (more content not included)... Normal [facility] Anion gap in Serum or Plasma Ordered By: Gómez Casiano on 05-13-2025 Anion gap [Moles/Vol] 12 mmol/L 5-15 [facility] BUN/creatinine ratioOrdered By: Gómez Casiano on 05-13-2025 Urea nitrogen/Creatinine [Mass ratio] 10.6 mg/mg 10- [facility] Bilirubin, totalOrdered By: Gómez Casiano on 05-13-2025 Bilirubin [Mass/Vol] 0.73 mg/dL 0.00-1.30 [facility] Carbon dioxide, total [Moles /volume] in Central venous bloodOrdered By: Gómez Casinao on 05-13-2025 CO2 [Moles/Vol] 21.6 mmol/L 21.0-32.0 [facility] Chloride assayOrdered By: Gillian Casiano on 05-13-2025 Chloride [Moles/Vol] 106 mmol/L 98-108 [facility] Comprehensive Metabolic Prof ilon 05-13-2025 Albumin [Mass/Vol] 4.0 g/dL Normal 3.5-5.0 [facility] Comment on above: Performed By: #### L 500.4050 #### [facility] [address] [place], [address] Albumin/Globulin [Mass ratio] 1.5 {ratio} Normal 0.9-2.4 [facility] Comment on above: Performed By: #### L 500.4050 #### [facility] [address] [place], [address] ALK PHOS 81 U/L Normal 35-104 [facility] Comment on above: Performed By: #### L 500.4050 #### [facility] [address] [place], [address] ALT [Catalytic activity/Vol] 63 U/L High <=34 [facility] Comment on above: Performed By: #### L 500.4050 #### [facility] [address] [place], [address] AST [Catalytic activity/Vol] 60 U/L High <=31 [facility] Comment on above: Performed By: #### L 500.4050 #### [facility] [address] [place], [address] Bilirubin [Mass/Vol] 0.73 mg/dL Normal 0.00-1.30 [facility] Comment on above: Performed By: #### L 500.4050 #### [facility] [address] [place], [address] BUN/CRE 10.6 RATIO Normal 10-20 [facility] Comment on above: Performed By: #### L 500.4050 #### [facility] [address] [place], [address] Calcium [Mass/Vol] 8.7 mg/dL Normal 7.6-11.0 [facility] Comment on above: Performed By: #### L 500.4050 #### [facility] [address] [place], [address] Chloride [Moles/Vol] 106 mmol/L Normal 98-108 [facility] Comment on above: Performed By: #### L 500.4050 #### [facility] [address] [place], [address] CO2 [Moles/Vol] 21.6 mmol/L Normal 21.0-32.0 [facility] Comment on above: Performed By: #### L 500.4050 #### [facility] [address] [place], [address] Creatinine [Mass/Vol] 0.75 mg/dL Normal 0.70-1.20 [facility] Comment on above: Performed By: #### L 500.4050 #### [facility] [address] [place], [address] ECRCL 117.01 ml/min Normal 50-250 [facility] Comment on above: Performed By: #### L 500.4050 #### [facility] [address] [place], [address] GAP 12 Normal 5-15 [facility] Comment on above: Performed By: #### L 500.4050 #### [facility] [address] [place], [address] GFR/1.73 sq M.predicted among non-blacks MDRD (S/P/Bld) [Vol rate/Area] 105 mL/min/{1.73_m2} Normal >60 [facility] Comment on above: Result Comment: mL/m in/1.73m2 CKD-EPI Creatinine Equation (2020) Performed By: #### L 500.4050 #### [facility] [address] [place], [address] Globulin (S) [Mass/Vol] 2.8 g/dL Normal 2.2-4.2 [facility] Comment on above: Performed By: #### L 500.4050 #### [facility] [address] [place], [address] Glucose [Mass/Vol] 171 mg/dL High 70-99 [facility] Comment on above: Performed By: #### L 500.4050 #### [facility] [address] [place] [place], [address] Potassium [Moles/Vol] 3.4 mmol/L Normal 3.3-5.1 [facility] Comment on above: Performed By: #### L 500.4050 #### [facility] [address] [place], [address] Sodium [Moles/Vol] 140 mmol/L Normal 133-145 [facility] Comment on above: Performed By: #### L 500.4050 #### [facility] [address] [place], [address] T PROT 6.8 g/dL Normal 5.9-8.4 [facility] Comment on above: Performed By: #### L 500.4050 #### [facility] [address] [place], [address] Urea nitrogen [Mass/Vol] 8 mg/dL Normal 4-19 [facility] Comment on above: Performed By: #### L 500.4050 #### [facility] [address] [place], [address] Discharge Instructionon 04-27 Discharge Instruction [facility] Medical Records Department [address] [place] [address] Instructions for Home/Discharge Instructions 05/13/25 0755 MR#: [id number] Acct: [id number] Name: HAMLET TEIXEIRA Rep #: [id number] : 1985 39 From: Gómez Casiano MD [...] CC: Dr. Ortega Medrano MD Signed Normal [facility] Glomerular filtration rate ( GFR) estimation/1.73 sq m using serum, plasma, or whole bOrdered By: Gómez Casiano on 05-13-2025 GFR/1.73 sq M.predicted among non-blacks MDRD (S/P/Bld) [Vol rate/Area] 105 mL/min/{1.73_m2} >60 [facility] Comment on above: mL/min/1.73m2 CKD-EP I Creatinine Equation (2020) Laboratory - Chemistry and C hemistry - challengeOrdered By: Gómez Casiano on 05-13-2025 AST [Catalytic activity/Vol] 60 U/L High <32 [facility] PTHINon 05-13-2025 PTH 58 pg/mL Normal 11-61 [facility] Comment on above: Performed By: #### L 400.8489 #### [facility] [address] [place], [address] Potassium measurement (mass/ volume)Ordered By: Gómez Casiano on 05-13-2025 Potassium (Unsp spec) [Mass/Vol] 3.4 mmol/L 3.3-5.1 [facility] Serum creatinine measurement (mass/volume)Ordered By: Gómez Casiano on 05-13-2025 Creatinine [Mass/Vol] 0.75 mg/dL 0.70-1.20 [facility] Serum globulin measurementOr dered By: Gómez Casiano on 05-13-2025 Globulin (S) [Mass/Vol] 2.8 g/dL 2.2-4.2 [facility] Serum glucose measurement (m ass/volume)Ordered By: Gómez Casiano on 05-13-2025 Glucose [Mass/Vol] 171 mg/dL High 70-99 [facility] Serum or plasma alanine gorman otransferase (ALT) measurementOrdered By: Gómez Casiano on 05-13-2025 ALT [Catalytic activity/Vol] 63 U/L High <35 [facility] Serum or plasma albumin harry urement (mass/volume)Ordered By: Gómez Casiano on 05-13-2025 Albumin [Mass/Vol] 4.0 g/dL 3.5-5.0 [facility] Serum or plasma albumin/glob ulin mass ratioOrdered By: Gómez Casiano on 05-13-2025 Albumin/Globulin [Mass ratio] 1.5 {ratio} 0.9-2.4 [facility] Serum or plasma alkaline domi sphatase measurementOrdered By: Gómez Casiano on 05-13-2025 ALP [Catalytic activity/Vol] 81 U/L 35-104 [facility] Serum or plasma calcium harry urement (mass/volume)Ordered By: Gómez Casiano on 05-13-2025 Calcium [Mass/Vol] 8.7 mg/dL 7.6-11.0 [facility] Serum or plasma urea nitroge n measurement (mass/volume)Ordered By: Gómez Casiano on 05-13-2025 Urea nitrogen [Mass/Vol] 8 mg/dL 4-19 [facility] Sodium levelOrdered By: Omer honeycutt Oh on 05-13-2025 Sodium [Moles/Vol] 140 mmol/L 133-145 [facility] Total proteinOrdered By: Sadiq coronelolimpia Oh on 05-13-2025 Protein [Mass/Vol] 6.8 g/dL 5.9-8.4 [facility] MR/POSTOP.ANEon 05-12-2025 MR/POSTOP.ANE [facility] Medical Records Department [address] [place] [address] Anesthesia Postop Eval I 05/12/25 1508 MR#: [id number] Acct: [id number] Name: HAMLET TEIXEIRA Rep #: [id number] : 1985 39 From: Estella Henry CRNA PCP: Dr. Ortega Medrano MD Status:REG CTC Y Race: C Location: [place] [address] Anesthesia: Postop Eval I Current Vital Signs [...] 1 completed: Yes 05/12/25 1510 Date Estella Gongaguedabart ELECTRONIC EQUIPMENT SET UP OPERATOR Cosigner Signature: Date CC: Signed Normal [facility] MR/[id number] 05-12-2025 MR/POSTOPAN2 [facility] Medical Records Department [address] [place] [address] Anesthesia Postop Eval II 05/12/25 1709 MR#: [id number] Acct: [id number] Name: HAMLET TEIXEIRA Rep #: [id number] : 1985 39 From: Leighton Copeland MD PCP: Dr. Ortega Medrano MD Status:ADM BONI Y Race: C Location: [place] [address] Anesthesia Postop Eval I Sum Postop Eval Completion status Anesthesia document: Postop Eval 1 completed: Yes Anesthesia Postop Eval I Summary Anesthesia Postop Eval I Summary: Anesthesia Postop Eval I: Assessment Summary Airway patent Yes 05/12/25 15:10 ELECTRONIC EQUIPMENT SET UP OPERATOR.GDOTT Spontaneous unlabored Yes 05/12/25 15:10 ELECTRONIC EQUIPMENT SET UP OPERATOR.GDOTT respirations Mental status Awake,Calm 05/12/25 15:10 ELECTRONIC EQUIPMENT SET UP OPERATOR.GDOTT nausea No 05/12/25 15:10 ELECTRONIC EQUIPMENT SET UP OPERATOR.GDOTT Vomiting No 05/12/25 15:10 ELECTRONIC EQUIPMENT SET UP OPERATOR.GDOTT Anesthesia Postop Eval I: Fluid Summary Crystalloid volume administer 1,400 05/12/25 15:10 ELECTRONIC EQUIPMENT SET UP OPERATOR.GDOTT (ml) Colloids volume administered ( ml) Blood Product volume administered (ml) Total IV fluid infused 1,400 05/12/25 15:10 ELECTRONIC EQUIPMENT SET UP OPERATOR.GDOTT Anesthesia Postop Eval I: Summary Notes Anesthesia Complication No 05/12/25 15:10 ELECTRONIC EQUIPMENT SET UP OPERATOR.GDOTT Anesthesia Complication Comment: Post-operative progress note Anesthesia: [...] Anesthesia Complication: No 05/12/25 1721 Date Leighton Copeland MD Cosigner Signature: Date CC: Signed Normal [facility] Operative Reporton 5 Operative Report [facility] Medical Records Department [address] [place] [address] Operative Report 05/12/25 1448 MR#: [id number] Acct: [id number] Name: HAMLET TEIXEIRA Rep #: [id number] : 1985 39 From: Gómez Casiano MD PCP: Dr. Ortega Medrano MD Status:ADM BONI Location: [facility] [id number] Procedures Endocrine CF Procedures [id number]: [address] Removal of thyroid Operative Report (Standard) Operative Information Date of Procedure: 05/12/25 Pre-Operative Diagnosis: Papillary thyroid carcinoma right thyroid lobe Post-Operative Diagnosis: Same Surgery/Procedure Performed: Total thyroidectomy with intraoperative nerve monitoring skin care consultant: Yes Walnut Dehydrator Operator: Rosalinda Schmitt Tasks completed by office support assistant: Opening closing and Retracting Type of [...] innominate ar (more content not included)... Normal [facility] PTHINon 05-12-2025 PTH 76 pg/mL High [facility] Comment on above: Performed By: #### L 500.4050 #### [facility] [address] [place], [place], [address] ,Urineon 05-12-2025 Beta HCG ( test) Ql (U) [facility] Comment on above: Result Comment: Canc elled via OM: patient refused Performed By: #### L 400.8740 #### [facility] [address] [place], [address] INTERNAL QC OK? Normal [facility] Comment on above: Result Comment: Canc elled via OM: patient refused Performed By: #### L 400.7600 #### [facility] [address] [place], [address] RECORD KIT LOT# Normal [facility] Comment on above: Result Comment: Canc elled via OM: patient refused Performed By: #### L 400.7600 #### [facility] [address] [place], [address] Surgery Specimen Level Von 0 9-16-2025 Surgery Specimen Level V -------- Patient Age/Sex Location Account Attending Physician -------- HAMLET TEIXEIRA 39/F MS3 [id number] Dr. Gómez Casiano MD -------- Specimen: [id number] Received: 05/12/25 Status: RYAN Dennison Num: [id number] Spec Type: THYROID Subm Dr: Dr. Gómez [...] name and date of . Designated as total thyroid is a 13.9 g thyroidectomy with a suture designated as right superior pole and consisting of: Left lobe: 3.0 x [...] ink. A definitive capsule is not identified. Interstate [employer] Dispatcher sections are submitted, to include the entirety of the nodules (approximately 90% of the specimen) as follows: A1-A4: Nodule #1A5-A7: Nodules #1 and #2A8: Nodule #3 to nodule #2, perpendicularA9: Nodule #3, perpendicular and isthmus/pyramidal syojN53-S81: Nodule #4 DC 05/13/2025 [facility]:[id number] -------- Patient Age/Sex Location Account Attending Physician -------- HAMLET TEIXEIRA 39/F MS3 [id number] Dr. Gómez Casiano MD -------- ADDENDUM Addendum 2 Entered: 06/19/25-3541 This addendum is added to incorporate an outside pathology consultation report. The case was examined at [facility] by Dr. Carter (#[id number]) and the following diagnosis was rendered. A. 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 - Background thyroid with benign follicular nodular disease and patchy chronic lymphocytic thyroiditis. Please see complete above mentioned consultation report in EMR Addendum Signed (signature on file) Dr. Keiry Mckeon MD 06/19/25 1636 -------- Addendum 1 Entered: 06/11/25 Expert consultation at [facility] and correlation with the thyroid FNA performed at [facility] ([facility] [id number]) is PENDING per Dr Casiano's request. A separate report from [facility] will follow. Addendum Signed (signature on file) Dr. Keiry Mckeon MD 06/11/25900 -------- -------- Patient Age/Sex Location Account Attending Physician -------- HAMLET TEIXEIRA 39/F MS3 [id number] Dr. Gómez Casiano MD -------- Signed (signature on file) Dr. Gregorio Riggins MD 05/18/25 1331 (more content not included)... Normal [facility] Comment on above: Performed By: #### L 400.7600 #### [facility] [address] [facility] [place], [place], [address] Head/Neck Soft Tissueon - Head/Neck Soft Tissue [facility] Imaging Services [address] [place], [place] [address] Head/Neck Soft Tissue MR#: [id number] Acct: [id number] Name: HAMLET TEIXEIRA Rep #: [id number] : 1985 F 39 From: Ian wang MD PCP: Dr. Ortega Medrano MD Status: [facility] Study: Head/Neck Soft Tissue Date of Exam: 04/23/25 Exam# [id number] Ordering Dr: Gómez Casiano MD ADDENDUM by Dr. Ian Cox MD on 04/28/25 at 1320 The lymph node as a normal appearing fatty hilum and good cortical thickness. This suggests benignity. Reading Location: [facility] 04/28/25 1321 Date cc: Dr. Ortega Medrano [...] right side of the neck. Reading Location: [id number] CC: Dr. Ortega Medrano MD; Dr. Gómez Casiano MD Associate Professor Of Physics: Signed Normal [facility] Surgery Visit Reporton 04-17 Surgery Visit Report [facility] [address] [place] [address]. [address] [place] [address] OFFICE VISIT Date of Service: 04/17/25 MR#: [id number] Acct: [id number] Name: HAMLET TEIXEIRA Rep #: [id number] : 1985 Provider: Dr. 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 The latter [...] problems, arth (more content not included)... Normal [facility] THYROID FNA ANALYSISo n 03-16-2025 [facility] Normal [facility] Comment on above: Order Comment: Speci men Type: SPECIMEN OBTAINED BY ASPIRATION Ordering Facility: [facility] Address: [address] [place] [address] Result Comment: View results in Scanned Documents link when available. Performed By: #### A EVETTE #### [facility] CLIA [id number] [address] [place] [address] [place] [address] [place] CNOVon 03-16-2025 CNOV Office Visit (GENSWS ) HAMLET TEIXEIRA ([id number]) 1985 F [facility] Date Time Provider Department 03/16/25 [...] to your office visit today with the [facility] General Surgeons. Instructions After THYROID FINE [...] you have any questions or concerns @ [phone]. Please make an appointment to follow up in one week with your physician and thank you for choosing the [facility]. If you note any additional difficulties, questions, or concerns, you should contact our office immediately @ [phone] and ask to be transferred to the [...] Modules accepted: Orders Referring Provider: BALTAZAR COURTNEY [[id number]] Allergies As of Date: 03/16/2025 (No Known Allergies) Date Reviewed: 03/09/2025 Reviewed by: Yelitza Whitlock LPN - Fully Assessed Primary Visit Diagnosis:Multinodular goiter [E04.2] Order(s):US THYROID BIOPSY RIGHT (POC) SURG USE ONLY [4458993] Order #: [id number]. #:[id number]: 1 CYTOLOGY NON-CITY MAGISTRATE [[id number]] Order #: [id number]. #:[id number] CYTOLOGY NON-CITY MAGISTRATE [[id number]] Order #: [id number]. #:[id number] Prescriptions as of 03/17/2025 - FLUoxetine (PROZAC) [...] instructions fr (more content not included)... Normal [facility] CYTOLOGY NON-GYNon ADDENDUM 1: Normal [facility] Comment on above: Order Comment: Speci men Type: SPECIMEN OBTAINED BY ASPIRATION Ordering Facility: [facility] Address: [address] [place] [address] Result Comment: Tawny cted slides from part B has been reviewed with Dr. Rell Garcias who concurs. Addendum electronically signed by Carlito Palma MD, PhD on 05/27/2025 at 1434 EDT Performed By: #### C CONCHIS #### [facility] CLIA [id number] [address] [place] [address] [place] AP DISCLAIMER Normal [facility] Comment on above: Order Comment: Speci men Type: SPECIMEN OBTAINED BY ASPIRATION Ordering Facility: [facility] Address: [address] [place] [address] Result Comment: Darrin sarah Developed Test (LDT) Disclaimer: Performance characteristics of immunohistochemical, immunofluorescent, and chromogenic in-situ hybridization tests have been determined by the performing laboratory within [facility] Pathology and Laboratory Medicine Department ([facility], [facility], [facility], [facility], [facility], [facility], or [facility]) in a manner consistent with CLIA [...] appropriately. Performed By: #### C YTONON #### [facility] CLIA [id number] [address] [place] [address] [place] CASE REPORT Normal [facility] Comment on above: Order Comment: Speci men Type: SPECIMEN OBTAINED BY ASPIRATION Ordering Facility: [facility] Address: [address] [place] [address] Result Comment: [facility] Cytology Report Case: [id number] Authorizing Provider: Baltazar Courtney MD Collected: 03/16/2025 01:51 PM Ordering Location: General Surgery Received: 03/17/2025 07:18 AM Pathologist: Carlito aPlma MD, PhD Specimens: A) - Thyroid, Right, Lobe, right lower lobe B) - Thyroid, Right, Lobe, right upper middle Performed By: #### C YTONON #### [facility] CLIA [id number] [address] [place] [address] STATES OF [facility] CLINICAL HISTORY thyroid nodules Normal [facility] Comment on above: Order Comment: Speci men Type: SPECIMEN OBTAINED BY ASPIRATION Ordering Facility: [facility] Address: [address] [place] [address] Result Comment: Afirma received for A, B Performed By: #### C YTONON #### [facility] CLIA [id number] [address] [place] [address] FINAL DIAGNOSIS Normal [facility] Comment on above: Order Comment: Speci men Type: SPECIMEN OBTAINED BY ASPIRATION Ordering Facility: [facility] Address: [address] [place] [address] Result Comment: A - Thyroid, Right, Lobe, FNA - right lower lobe Atypia of undetermined significance. (See comment) B - Thyroid, Right, Lobe, FNA - right upper middle Suspicious for papillary thyroid carcinoma. at 1256 EDT Performed By: #### C YTONON #### [facility] CLIA [id number] [address] [place] [address] [place] FINAL PERFORMING LAB Normal [facility] Comment on above: Order Comment: Speci men Type: SPECIMEN OBTAINED BY ASPIRATION Ordering Facility: [facility] Address: [address] [place] [address] Result Comment: Tech nical component, patcher screening performed at: [facility], [address] [place] [address] [place] [address] CLIA: [id number] Diagnostic interpretation performed at: [facility], [address] [place] [address] [place] [address] CLIA# [id number] Industrial Custodian: Rashaun Tavera MD Performed By: #### C YTONON #### [facility] CLIA [id number] [address] [place] [address] [place] GROSS DESCRIPTION Normal [facility] Comment on above: Order Comment: Speci men Type: SPECIMEN OBTAINED BY ASPIRATION Ordering Facility: [facility] Address: [address] [place] [address] Result Comment: A. T hyroid, Right, Lobe 30 cc clear colorless CytoLyt . ThinPrep prepared and 8 smears. Afirma received B. Thyroid, Right, Lobe 30 cc clear light pink CytoLyt . ThinPrep prepared and 12 smears. Afirma received Performed By: #### C YTONON #### [facility] CLIA [id number] [address] [place], [place] [id number] [place] ADDENDUM 1: Normal [facility] Comment on above: Order Comment: Speci men Type: SPECIMEN OBTAINED BY ASPIRATION Ordering Facility: [facility] Address: [address] [place] [address] Result Comment: Tawny cted slides from part B has been reviewed with Dr. Rell Garcias who concurs. Addendum electronically signed by Carlito Palma MD, PhD on 05/27/2025 at 1434 EDT Performed By: #### C YTONON #### [facility] CLIA [id number] [address] [place] [address] [place] AP DISCLAIMER Normal [facility] Comment on above: Order Comment: Speci men Type: SPECIMEN OBTAINED BY ASPIRATION Ordering Facility: [facility] Address: [address] [place] [address] Result Comment: Darrin sarah Developed Test (LDT) Disclaimer: Performance characteristics of immunohistochemical, immunofluorescent, and chromogenic in-situ hybridization tests have been determined by the performing laboratory within [facility] Pathology and Laboratory Medicine Department ([facility], [facility], [facility], [facility], [facility], [facility], or [facility]) in a manner consistent with CLIA [...] appropriately. Performed By: #### C YTONON #### [facility] CLIA [id number] [address] [place] [address] [place] CASE REPORT Normal [facility] Comment on above: Order Comment: Speci men Type: SPECIMEN OBTAINED BY ASPIRATION Ordering Facility: [facility] Address: [address] [place] [address] Result Comment: [facility] Cytology Report Case: [id number] Authorizing Provider: Baltazar Courtney MD Collected: 03/16/2025 01:51 PM Ordering Location: General Surgery Received: 03/17/2025 07:18 AM Pathologist: Carlito Palma MD, PhD Specimens: A) - Thyroid, Right, Lobe, right lower lobe B) - Thyroid, Right, Lobe, right upper middle Performed By: #### C YTONON #### [facility] CLIA [id number] [address] [place] [address] [place] CLINICAL HISTORY thyroid nodules Normal [facility] Comment on above: Order Comment: Speci men Type: SPECIMEN OBTAINED BY ASPIRATION Ordering Facility: [facility] Address: [address] [place] [address] Result Comment: Afirma received for A, B Performed By: #### C YTONON #### [facility] CLIA [id number] [address] [place] [address] [place] FINAL DIAGNOSIS Normal [facility] Comment on above: Order Comment: Speci men Type: SPECIMEN OBTAINED BY ASPIRATION Ordering Facility: [facility] Address: [address] [place] [address] Result Comment: A - Thyroid, Right, Lobe, FNA - right lower lobe Atypia of undetermined significance. (See comment) B - Thyroid, Right, Lobe, FNA - right upper middle Suspicious for papillary thyroid carcinoma. at 1256 EDT Performed By: #### C YTONON #### [facility] CLIA [id number] [address] [place] [address] [place] FINAL PERFORMING LAB Normal [facility] Comment on above: Order Comment: Speci men Type: SPECIMEN OBTAINED BY ASPIRATION Ordering Facility: [facility] Address: [address] [place] [address] Result Comment: Tech nical component, patcher screening performed at: [facility], [address] [place], [place] [id number] CLIA: [id number] Diagnostic interpretation performed at: [facility], [address] [place] [address] [place] [address] CLIA# [id number] Industrial Custodian: Rashaun Tavera MD Performed By: #### C YTONON #### [facility] CLIA [id number] [address] [place], [place] [address] [place] GROSS DESCRIPTION Normal [facility] Comment on above: Order Comment: Speci men Type: SPECIMEN OBTAINED BY ASPIRATION Ordering Facility: [facility] Address: [address] [place] [address] Result Comment: A. T hyroid, Right, Lobe 30 cc clear colorless CytoLyt . ThinPrep prepared and 8 smears. Afirma received B. Thyroid, Right, Lobe 30 cc clear light pink CytoLyt . ThinPrep prepared and 12 smears. Afirma received Performed By: #### C YTONON #### [facility] CLIA [id number] [address] [place] [address] STATES OF [facility] [place] THYROID BIOPSY RIGHT (POC ) SURG USE ONLYon 03-16-2025 [facility] CNOVon 03-09-2025 CNOV Office Visit (GENSWS ) HAMLET TEIXEIRA ([id number]) 1985 [facility] Date Time Provider Department 03/09/25 2:45 PM [...] Alcohol use: (more content not included)... Normal [facility] Thyroidon 02-12-2025 Thyroid [facility] Imaging Services [address] [place] [address] Thyroid MR#: [id number] Acct: [id number] Name: HAMLET TEIXEIRA Rep #: [id number] : 1985 F 39 From: Mateo Rock DO PCP: Dr. Ortega Medrano MD Status: [facility] CL Study: Thyroid Date of Exam: 02/12/25 Exam# [id number] Ordering Dr: Ortega Medrano MD PROCEDURE: THYROID [...] 2 nodules. Reading [facility] CC: Dr. 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 The assay manager data center has found that four percent of individuals without evidence of thyroid disease or autoimmunity will have positive TgAb levels up to 4 IU/mL. Performed By: #### L 3300.6900, L503.0106, L3300.6820, L506.1001 #### [facility] [address] [place], [place], [address] THYROGLOB QUANT 113.2 ng/mL High 1.5-38.5 [facility] Comment on above: Order Comment: Order Date: 02/05/25 Order Info: 56747-6 - TSIMM Result Comment: Acco rding to [...] Ayanna Immunometric Assay Performed By: #### L 3300.6900, L503.0106, L3300.6820, L506.1001 #### [facility] [address] [place], [place], [address] Thyroid Peroxidase ABon - THYR PEROX AB < 9 Normal 0-34 [facility] Comment on above: Order Comment: Order Date: 02/05/25 Order Info: [id number] - TSIMM Result Comment: Perf ormed at: [facility] [address] [id number] Supervisor Assembly Department: Kartik Cano MD, Phone: [phone] Performed at: [facility] [address] [id number] Supervisor Assembly Department: Rodrigo Edmondson PhD, Phone: [phone] Performed By: #### L 3300.6900, L503.0106, L3300.6820, L506.1001 #### [facility] [address] [place], [place], [address] Thyroid Stim Immunoglobon THY STIM IMMUNO <0.10 Normal 0.00-0.55 [facility] Comment on above: Order Comment: Order Date: 02/05/25 Order Info: [id number] - TSIMM Performed By: #### L 3400.4700 #### [facility] [address] [place], [place], [address] Absolute lymphocyte countOrd ered By: Ortega Medrano on 02-05-2025 Lymphocytes Auto (Unsp spec) [#/Vol] 3.19 10*3/uL 0.83-4.51 [facility] Absolute neutrophil countOrd ered By: Ortega Medrano on 02-05-2025 Neutrophils (Bld) [#/Vol] 7.0 10*3/uL 2.0-7.7 [facility] Anion gap in Serum or Plasma Ordered By: Ortega Medrano on 02-05-2025 Anion gap [Moles/Vol] 12 mmol/L 5-15 [facility] Automated lymphocyte count a s percentage of total leukocytesOrdered By: Ortega Medrano on 02-05-2025 Lymphocytes/100 WBC Auto (Unsp spec) 29.0 % 19- [facility] BUN/creatinine ratioOrdered By: Ortega Medrano on 02-05-2025 Urea nitrogen/Creatinine [Mass ratio] 9.1 mg/mg Low 10-20 [facility] Basophil percentageOrdered B y: Ortega Medrano on 02-05-2025 Basophils/100 WBC (Bld) 0.8 % 0- [facility] Bilirubin, totalOrdered By: Ortega Medrano on 02-05-2025 Bilirubin [Mass/Vol] 0.31 mg/dL 0.00-1.30 [facility] CBC W/Diff, Automatedon 01-25 Absolute Lymph 3.19 X10 3/uL Normal 0.83-4.51 [facility] Comment on above: Order Comment: Order Date: 02/05/25 Order Info: 0184-1 - CBCD Performed By: #### L 501.9520, L100.0100, L500.4050, L506.0400 #### [facility] [address] [place], [address] Absolute Neut 7.0 X10 3/uL Normal 2.0-7.7 [facility] Comment on above: Order Comment: Order Date: 02/05/25 Order Info: 0184-1 - CBCD Performed By: #### L 501.9520, L100.0100, L500.4050, L506.0400 #### [facility] [address] [place], [address] Basophils/100 WBC (Bld) 0.8 % Normal 0-1 [facility] Comment on above: Order Comment: Order Date: 02/05/25 Order Info: 0184-1 - CBCD Performed By: #### L 501.9520, L100.0100, L500.4050, L506.0400 #### [facility] [address] [place], [address] Eosinophils/100 WBC (Bld) 0.8 % Normal 0-5 [facility] Comment on above: Order Comment: Order Date: 02/05/25 Order Info: 0184-1 - CBCD Performed By: #### L 501.9520, L100.0100, L500.4050, L506.0400 #### [facility] [address] [place], [address] Erythrocyte distribution width (RBC) [Ratio] 11.9 % Normal 11.6-14.6 [facility] Comment on above: Order Comment: Order Date: 02/05/25 Order Info: 0184-1 - CBCD Performed By: #### L 501.9520, L100.0100, L500.4050, L506.0400 #### [facility] [address] [place], [address] Hematocrit (Bld) [Volume fraction] 39.8 % Normal 37-47 [facility] Comment on above: Order Comment: Order Date: 02/05/25 Order Info: 0184-1 - CBCD Performed By: #### L 501.9520, L100.0100, L500.4050, L506.0400 #### [facility] [address] [place], [address] Hemoglobin (Bld) [Mass/Vol] 13.0 g/dL Normal 12.0-15.0 [facility] Comment on above: Order Comment: Order Date: 02/05/25 Order Info: 0184-1 - CBCD Performed By: #### L 501.9520, L100.0100, L500.4050, L506.0400 #### [facility] [address] [place], [address] IG% 0.400 Normal 0.0-0.9 [facility] Comment on above: Order Comment: Order Date: 02/05/25 Order Info: 0184-1 - CBCD Result Comment: IG% - Immature Granulocytes (promyelocytes, myelocytes and metamyelocytes) > 1% indicates that a LEFT SHIFT is Present. Performed By: #### L 501.9520, L100.0100, L500.4050, L506.0400 #### [facility] [address] [place], [address] Lymphocytes/100 WBC (Bld) 29.0 % Normal 19-41 [facility] Comment on above: Order Comment: Order Date: 02/05/25 Order Info: 0184-1 - CBCD Performed By: #### L 501.9520, L100.0100, L500.4050, L506.0400 #### [facility] [address] [place], [address] MCH (RBC) [Entitic mass] 30.2 pg Normal 27.0-32.0 [facility] Comment on above: Order Comment: Order Date: 02/05/25 Order Info: 0184-1 - CBCD Performed By: #### L 501.9520, L100.0100, L500.4050, L506.0400 #### [facility] [address] [place], [address] MCHC (RBC) [Mass/Vol] 32.7 g/dL Normal 32-36 [facility] Comment on above: Order Comment: Order Date: 02/05/25 Order Info: 0184-1 - CBCD Performed By: #### L 501.9520, L100.0100, L500.4050, L506.0400 #### [facility] [address] [place], [address] MCV (RBC) [Entitic vol] 92.3 fL Normal 81-99 [facility] Comment on above: Order Comment: Order Date: 02/05/25 Order Info: 0184-1 - CBCD Performed By: #### L 501.9520, L100.0100, L500.4050, L506.0400 #### [facility] [address] [place], [address] Monocytes/100 WBC (Bld) 5.7 % Normal 0-10 [facility] Comment on above: Order Comment: Order Date: 02/05/25 Order Info: 0184-1 - CBCD Performed By: #### L 501.9520, L100.0100, L500.4050, L506.0400 #### [facility] [address] [place], [address] Neutrophils/100 WBC (Bld) 63.3 % Normal 47-70 [facility] Comment on above: Order Comment: Order Date: 02/05/25 Order Info: 0184-1 - CBCD Performed By: #### L 501.9520, L100.0100, L500.4050, L506.0400 #### [facility] [address] [place], [address] Nucleated RBC (Bld) [#/Vol] 0 10*3/uL Normal 0-5 [facility] Comment on above: Order Comment: Order Date: 02/05/25 Order Info: 0184-1 - CBCD Performed By: #### L 501.9520, L100.0100, L500.4050, L506.0400 #### [facility] [address] [place], [address] Platelet mean volume (Bld) [Entitic vol] 9.2 fL Normal 6.2-12.0 [facility] Comment on above: Order Comment: Order Date: 02/05/25 Order Info: 018- - CBCD Performed By: #### L 501.9520, L100.0100, L500.4050, L506.0400 #### [facility] [address] [place], [address] Platelets (Bld) [#/Vol] 382 10*3/uL Normal 150-450 [facility] Comment on above: Order Comment: Order Date: 02/05/25 Order Info: 018- - CBCD Performed By: #### L 501.9520, L100.0100, L500.4050, L506.0400 #### [facility] [address] [place], [address] RBC (Bld) [#/Vol] 4.31 10*6/uL Normal 4.2-5.4 [facility] Comment on above: Order Comment: Order Date: 02/05/25 Order Info: 0184-1 - CBCD Performed By: #### L 501.9520, L100.0100, L500.4050, L506.0400 #### [facility] [address] [place], [address] RDW SD 40.4 fl Normal 35.1-43.9 [facility] Comment on above: Order Comment: Order Date: 02/05/25 Order Info: 0184-1 - CBCD Performed By: #### L 501.9520, L100.0100, L500.4050, L506.0400 #### [facility] [address] [place], [address] WBC (Bld) [#/Vol] 11.0 10*3/uL Normal 4.4-11.0 [facility] Comment on above: Order Comment: Order Date: 02/05/25 Order Info: [id number] - CBCD Performed By: #### L 501.9520, L100.0100, L500.4050, L506.0400 #### [facility] [address] [place], [address] Calculated very low density lipoprotein (VLDL) cholesterol measurementOrdered By: Ortega Medrano on 02-05-2025 Calculated very low density lipoprotein (VLDL) cholesterol measurement 59 mg/dL High 5-40 [facility] Carbon dioxide, total [Moles /volume] in Central venous bloodOrdered By: Ortega Medrano on 02-05-2025 CO2 [Moles/Vol] 21.7 mmol/L 21.0-32.0 [facility] Chloride assayOrdered By: Lidia Medrano on 02-05-2025 Chloride [Moles/Vol] 105 mmol/L 98-108 [facility] Comprehensive Metabolic Prof ilon 02-05-2025 Albumin [Mass/Vol] 4.2 g/dL Normal 3.5-5.0 [facility] Comment on above: Order Comment: Order Date: 02/05/25 Order Info: [id number] - CMP Order Info: [id number] - LIPID Order Info: [id number] - TSH Order Info: [id number] - T4F Performed By: #### L 501.9520, L100.0100, L500.4050, L506.0400 #### [facility] [address] [place], [address] Albumin/Globulin [Mass ratio] 1.4 {ratio} Normal 0.9-2.4 [facility] Comment on above: Order Comment: Order Date: 02/05/25 Order Info: [id number] - CMP Order Info: [id number] - LIPID Order Info: 3 - TSH Order Info: 7 - T4F Performed By: #### L 501.9520, L100.0100, L500.4050, L506.0400 #### [facility] [address] [place], [address] ALK PHOS 62 U/L Normal 35-104 [facility] Comment on above: Order Comment: Order Date: 02/05/25 Order Info: [id number]- - CMP Order Info: - LIPID Order Info: 3 - TSH Order Info: 7 - T4F Performed By: #### L 501.9520, L100.0100, L500.4050, L506.0400 #### [facility] [address] [place], [address] ALT [Catalytic activity/Vol] 12 U/L Normal <=34 [facility] Comment on above: Order Comment: Order Date: 02/05/25 Order Info: [id number] - CMP Order Info: [id number] - LIPID Order Info: 3 - TSH Order Info: 7 - T4F Performed By: #### L 501.9520, L100.0100, L500.4050, L506.0400 #### [facility] [address] [place], [address] AST [Catalytic activity/Vol] 16 U/L Normal <=31 [facility] Comment on above: Order Comment: Order Date: 02/05/25 Order Info: 07-1 - CMP Order Info: [id number] - LIPID Order Info: 3 - TSH Order Info: 3024-7 - T4F Performed By: #### L 501.9520, L100.0100, L500.4050, L506.0400 #### [facility] [address] [place], [address] Bilirubin [Mass/Vol] 0.31 mg/dL Normal 0.00-1.30 [facility] Comment on above: Order Comment: Order Date: 02/05/25 Order Info: [id number] - CMP Order Info: [id number] - LIPID Order Info: [id number] - TSH Order Info: 3024-7 - T4F Performed By: #### L 501.9520, L100.0100, L500.4050, L506.0400 #### [facility] [address] [place], [address] BUN/CRE 9.1 RATIO Low 10-20 [facility] Comment on above: Order Comment: Order Date: 02/05/25 Order Info: 785-1 - CMP Order Info: [id number] - LIPID Order Info: 3 - TSH Order Info: 3024-7 - T4F Performed By: #### L 501.9520, L100.0100, L500.4050, L506.0400 #### [facility] [address] [place], [address] Calcium [Mass/Vol] 9.6 mg/dL Normal 7.6-11.0 [facility] Comment on above: Order Comment: Order Date: 02/05/25 Order Info: 0786-1 - CMP Order Info: [id number] - LIPID Order Info: 3 - TSH Order Info: 3024-7 - T4F Performed By: #### L 501.9520, L100.0100, L500.4050, L506.0400 #### [facility] [address] [place], [address] Chloride [Moles/Vol] 105 mmol/L Normal 98-108 [facility] Comment on above: Order Comment: Order Date: 02/05/25 Order Info: [id number] - CMP Order Info: [id number] - LIPID Order Info: [id number] - TSH Order Info: 3024-7 - T4F Performed By: #### L 501.9520, L100.0100, L500.4050, L506.0400 #### [facility] [address] [place], [address] CO2 [Moles/Vol] 21.7 mmol/L Normal 21.0-32.0 [facility] Comment on above: Order Comment: Order Date: 02/05/25 Order Info: 0786-1 - CMP Order Info: [id number] - LIPID Order Info: [id number] - TSH Order Info: 3024-7 - T4F Performed By: #### L 501.9520, L100.0100, L500.4050, L506.0400 #### [facility] [address] [place], [address] Creatinine [Mass/Vol] 0.82 mg/dL Normal 0.70-1.20 [facility] Comment on above: Order Comment: Order Date: 02/05/25 Order Info: 0786-1 - CMP Order Info: [id number] - LIPID Order Info: [id number] - TSH Order Info: 3024-7 - T4F Performed By: #### L 501.9520, L100.0100, L500.4050, L506.0400 #### [facility] [address] [place], [address] GAP 12 Normal 5-15 [facility] Comment on above: Order Comment: Order Date: 02/05/25 Order Info: 0786-1 - CMP Order Info: [id number] - LIPID Order Info: [id number] - TSH Order Info: 3024-7 - T4F Performed By: #### L 501.9520, L100.0100, L500.4050, L506.0400 #### [facility] [address] [place], [address] GFR/1.73 sq M.predicted among non-blacks MDRD (S/P/Bld) [Vol rate/Area] 94 mL/min/{1.73_m2} Normal >60 [facility] Comment on above: Order Comment: Order Date: 02/05/25 Order Info: 86-1 - CMP Order Info: [id number] - LIPID Order Info: [id number] - TSH Order Info: 3024-7 - T4F Result Comment: mL/m in/1.73m2 CKD-EPI Creatinine Equation (2020) Performed By: #### L 501.9520, L100.0100, L500.4050, L506.0400 #### [facility] [address] [place], [address] Globulin (S) [Mass/Vol] 2.9 g/dL Normal 2.2-4.2 [facility] Comment on above: Order Comment: Order Date: 02/05/25 Order Info: 785-1 - CMP Order Info: [id number] - LIPID Order Info: 3 - TSH Order Info: 3024-7 - T4F Performed By: #### L 501.9520, L100.0100, L500.4050, L506.0400 #### [facility] [address] [place], [address] Glucose [Mass/Vol] 93 mg/dL Normal 70-99 [facility] Comment on above: Order Comment: Order Date: 02/05/25 Order Info: 785-1 - CMP Order Info: [id number] - LIPID Order Info: [id number] - TSH Order Info: 3024-7 - T4F Performed By: #### L 501.9520, L100.0100, L500.4050, L506.0400 #### [facility] [address] [place], [address] Potassium [Moles/Vol] 4.1 mmol/L Normal 3.3-5.1 [facility] Comment on above: Order Comment: Order Date: 02/05/25 Order Info: 86-1 - CMP Order Info: [id number] - LIPID Order Info: [id number] - TSH Order Info: 3024-7 - T4F Performed By: #### L 501.9520, L100.0100, L500.4050, L506.0400 #### [facility] [address] [place], [address] Sodium [Moles/Vol] 138 mmol/L Normal 133-145 [facility] Comment on above: Order Comment: Order Date: 02/05/25 Order Info: [id number] - CMP Order Info: [id number] - LIPID Order Info: [id number] - TSH Order Info: 3024-7 - T4F Performed By: #### L 501.9520, L100.0100, L500.4050, L506.0400 #### [facility] [address] [place], [address] T PROT 7.2 g/dL Normal 5.9-8.4 [facility] Comment on above: Order Comment: Order Date: 02/05/25 Order Info: 0786- - CMP Order Info: [id number] - LIPID Order Info: 3 - TSH Order Info: 3024-7 - T4F Performed By: #### L 501.9520, L100.0100, L500.4050, L506.0400 #### [facility] [address] [place], [address] Urea nitrogen [Mass/Vol] 7 mg/dL Normal 4-19 [facility] Comment on above: Order Comment: Order Date: 02/05/25 Order Info: 0786-1 - CMP Order Info: [id number] - LIPID Order Info: [id number] - TSH Order Info: 3024-7 - T4F Performed By: #### L 501.9520, L100.0100, L500.4050, L506.0400 #### [facility] [address] [place], [address] Eosinophil percentageOrdered By: Ortega Medrano on 02-05-2025 Eosinophils/100 WBC (Bld) 0.8 % 0-5 [facility] Erythrocyte distribution wid th ratioOrdered By: Ortega Medrano on 02-05-2025 Erythrocyte distribution width (RBC) [Ratio] 11.9 % 11.6-14.6 [facility] Erythrocyte distribution wid th standard deviationOrdered By: Ortega Medrano on 02-05-2025 Erythrocyte distribution width (RBC) [Ratio] 40.4 fl 35.1-43.9 [facility] Glomerular filtration rate ( GFR) estimation/1.73 sq m using serum, plasma, or whole bOrdered By: Ortega Medrano on 02-05-2025 GFR/1.73 sq M.predicted among non-blacks MDRD (S/P/Bld) [Vol rate/Area] 94 mL/min/{1.73_m2} >60 [facility] Comment on above: mL/min/1.73m2 CKD-EP I Creatinine Equation (2020) Hematocrit Auto (Bld) [Volum e fraction]Ordered By: Ortega Medrano on 02-05-2025 Hematocrit (Bld) [Volume fraction] 39.8 % 37-47 [facility] Hemoglobin measurementOrdere d By: Ortega Medrano on 02-05-2025 Hemoglobin (Bld) [Mass/Vol] 13.0 g/dL 12.0-15.0 [facility] Immature granulocytes/100 WB C Auto (Bld)Ordered By: Ortega Medrano on 02-05-2025 Immature granulocytes/100 WBC (Bld) 0.400 % 0.0-0.9 [facility] Comment on above: IG% - Immature Granu locytes (promyelocytes, myelocytes and metamyelocytes) > 1% indicates that a LEFT SHIFT is Present. LDL calc ser/plasOrdered By: Ortega Medrano on 02-05-2025 Cholesterol in LDL [Mass/Vol] 111 mg/dL [facility] Comment on above: Cqqfpryqmd=383-239 m g/dL & Higher Vowt=274 mg/dL or greater Laboratory - Chemistry and C hemistry - challengeOrdered By: Ortega Medrano on 02-05-2025 AST [Catalytic activity/Vol] 16 U/L <32 [facility] Lipid Profileon 02-05-2025 CHOL:HDL 4.76 Normal [facility] Comment on above: Order Comment: Order Date: 02/05/25Order Info: [id number] - CMPOrder Info: [id number] - LIPIDOrder Info: 6-3 - TSHOrder Info: 7 - T4F Performed By: #### L 400.7600 #### [facility] [address] [place], [address] Cholesterol [Mass/Vol] 215 mg/dL High <=200 [facility] Comment on above: Order Comment: Order Date: 02/05/25Order Info: 0786-1 - CMPOrder Info: [id number] - LIPIDOrder Info: [id number] - TSHOrder Info: 7 - T4F Result Comment: Chol esterol level, Desirable <200 mg/dL Borderline high cholesterol 200-239 mg/dL High cholesterol >=240 mg/dL Recommendations of the NCEP Adult Treatment Panel for the following risk-cutoff thresholds for the [place] population. Performed By: #### L 400.7600 #### [facility] [address] [place], [address] Cholesterol in HDL [Mass/Vol] 45 mg/dL Normal [facility] Comment on above: Order Comment: Order Date: 02/05/25Order Info: 0786-1 - CMPOrder Info: [id number] - LIPIDOrder Info: 3 - TSHOrder Info: [id number] - T4F Result Comment: Liyah onal Cholesterol Education Program (NCEP) guidelines: <40 mg/dL: Low HDL-cholesterol (major risk factor for CHD) >= 60 mg/dL: High HDL-cholesterol (negative risk factor for CHD) HDL-cholesterol is affected by a number of factors, e.g. smoking, exercise, hormones, sex and age. Performed By: #### L 400.7600 #### [facility] [address] [place], [address] Cholesterol in LDL [Mass/Vol] 111 mg/dL Normal [facility] Comment on above: Order Comment: Order Date: 02/05/25Order Info: 0786-1 - CMPOrder Info: [id number] - LIPIDOrder Info: [id number] - TSHOrder Info: 3027 - T4F Result Comment: Bord uvkzae=091-127 mg/dL Higher Dyxy=763 mg/dL or greater Performed By: #### L 400.7600 #### [facility] [address] [place], [address] Cholesterol in VLDL [Mass/Vol] 59 mg/dL High 5-40 [facility] Comment on above: Order Comment: Order Date: 02/05/25Order Info: 0786-1 - CMPOrder Info: [id number] - LIPIDOrder Info: [id number] - TSHOrder Info: [id number] - T4F Performed By: #### L 400.7600 #### [facility] [address] [place], [address] Triglyceride [Mass/Vol] 293 mg/dL High [facility] Comment on above: Order Comment: Order Date: 02/05/25Order Info: 0786-1 - CMPOrder Info: [id number] - LIPIDOrder Info: [id number] - TSHOrder Info: [id number] - T4F Result Comment: The drugs N-Acetylcysteine and Metamizole may falsely depress this assay. Normal range: <150 mg/dL Borderline High: 150-199 mg/dL High: 200-499 mg/dL Very High: >500 mg/dL Performed By: #### L 400.7600 #### [facility] [address] [place], [address] MCV (mean corpuscular volume ) determinationOrdered By: Ortega Medrano on 02-05-2025 MCV (RBC) [Entitic vol] 92.3 fL 81-99 [facility] Mean corpuscular hemoglobin (MCH) determinationOrdered By: Ortega Medrano on 02-05-2025 MCH (RBC) [Entitic mass] 30.2 pg 27.0-32.0 [facility] Mean corpuscular hemoglobin concentration (MCHC) determinationOrdered By: Ortega Medrano on 02-05-2025 MCHC (RBC) [Mass/Vol] 32.7 g/dL 32-36 [facility] Mean platelet volume determi nationOrdered By: Ortega Medrano on 02-05-2025 Platelet mean volume (Bld) [Entitic vol] 9.2 fL 6.2-12.0 [facility] Monocyte percentageOrdered B y: Ortega Medrano on 02-05-2025 Monocytes/100 WBC (Bld) 5.7 % 0-10 [facility] Neutrophil percentageOrdered By: Ortega Medrano on 02-05-2025 Neutrophils/100 WBC (Bld) 63.3 % 47-70 [facility] Nucleated red blood cell per centageOrdered By: Ortega Medrano on 02-05-2025 Nucleated RBC/100 WBC (Bld) [Ratio] 0 % 0-5 [facility] Platelet countOrdered By: Lidia Medrano on 02-05-2025 Platelets (Bld) [#/Vol] 382 10*3/uL 150-450 [facility] Potassium measurement (mass/ volume)Ordered By: Ortega Medrano on 02-05-2025 Potassium (Unsp spec) [Mass/Vol] 4.1 mmol/L 3.3-5.1 [facility] RBC Auto (Bld) [#/Vol]Ordere d By: Ortega Medrano on 02-05-2025 RBC (Bld) [#/Vol] 4.31 10*6/uL 4.2-5.4 [facility] Screening total cholesterol/ high density lipoprotein (HDL) cholesterol ratioOrdered By: Ortega Medrano on 02-05-2025 Cholesterol.total/Cho lesterol in HDL [Mass ratio] 4.76 {ratio} [facility] Serum creatinine measurement (mass/volume)Ordered By: Ortega Medrano on 02-05-2025 Creatinine [Mass/Vol] 0.82 mg/dL 0.70-1.20 [facility] Serum globulin measurementOr dered By: Ortega Medrano on 02-05-2025 Globulin (S) [Mass/Vol] 2.9 g/dL 2.2-4.2 [facility] Serum glucose measurement (m ass/volume)Ordered By: Ortega Medrano on 02-05-2025 Glucose [Mass/Vol] 93 mg/dL 70-99 [facility] Serum or plasma alanine gorman otransferase (ALT) measurementOrdered By: Ortega Medrano on 02-05-2025 ALT [Catalytic activity/Vol] 12 U/L <35 [facility] Serum or plasma albumin harry urement (mass/volume)Ordered By: Ortega Medrano on 02-05-2025 Albumin [Mass/Vol] 4.2 g/dL 3.5-5.0 [facility] Serum or plasma albumin/glob ulin mass ratioOrdered By: Ortega Medrano on 02-05-2025 Albumin/Globulin [Mass ratio] 1.4 {ratio} 0.9-2.4 [facility] Serum or plasma alkaline domi sphatase measurementOrdered By: Ortega Medrano on 02-05-2025 ALP [Catalytic activity/Vol] 62 U/L 35-104 [facility] Serum or plasma calcium harry urement (mass/volume)Ordered By: Ortega Medrano on 02-05-2025 Calcium [Mass/Vol] 9.6 mg/dL 7.6-11.0 [facility] Serum or plasma cholesterol in HDL measurement (mass/volume)Ordered By: Ortega Medrano on 02-05-2025 Cholesterol in HDL [Mass/Vol] 45 mg/dL >40 [facility] Comment on above: National Cholesterol Education Program (NCEP) guidelines:<40 mg/dL: Low HDL-cholesterol (major risk factor for CHD)>= 60 mg/dL: High HDL-cholesterol (negative risk factor for CHD)HDL-cholesterol is affected by a number of factors, e.g. smoking, exercise, hormones, sex and age. Serum or plasma cholesterol measurement (mass/volume)Ordered By: Ortega Medrano on 02-05-2025 Cholesterol [Mass/Vol] 215 mg/dL High <201 [facility] Comment on above: Cholesterol level, D esirable <200 mg/dLBorderline high cholesterol 200-239 mg/dLHigh cholesterol >=240 mg/dLRecommendations of the NCEP Adult Treatment Panel for the following risk-cutoff thresholds for the [place] population. Serum or plasma thyroperoxid ase antibody assay (units/volume)Ordered By: Ortega Medrano on 02-05-2025 TPO Ab Qn [IU]/mL 0-34 [facility] Comment on above: Performed at: [address] [id number] Director: Kartik Cano MD, Phone: [phone] at: CB - [facility] [address] [id number] Director: Rodrigo Edmondson PhD, Phone: [phone] Serum or plasma urea nitroge n measurement (mass/volume)Ordered By: Ortega Medrano on 02-05-2025 Urea nitrogen [Mass/Vol] 7 mg/dL 4-19 [facility] Sodium levelOrdered By: Ortega Medrano on 02-05-2025 Sodium [Moles/Vol] 138 mmol/L 133-145 [facility] T4 Free Directon 02-05-2025 T4 FREE DIRECT 1.00 ng/dL Normal 0.76-1.46 [facility] Comment on above: Order Comment: Order Date: 02/05/25Order Info: [id number] - CMPOrder Info: [id number] - LIPIDOrder Info: 3 - TSHOrder Info: [id number] - T4F Performed By: #### L 400.7600 #### [facility] [address] [place], [place], [address] T4 freeOrdered By: Ortega doran on 02-05-2025 Free T4 [Mass/Vol] 1.00 ng/dL 0.76-1.46 [facility] TSH DL <= 0.005 mIU/L QnOrde red By: Ortega Medrano on 02-05-2025 TSH Qn 1.840 uIU/mL 0.300-4.20 0 [facility] Thyroid Stim Hormone (TSH)on 02-05-2025 TSH 1.840 uIU/mL Normal 0.300-4.20 0 [facility] Comment on above: Order Comment: Order Date: 02/05/25Order Info: [id number] - CMPOrder Info: [id number] - LIPIDOrder Info: 3 - TSHOrder Info: [id number] - T4F Performed By: #### L 400.7600 #### [facility] [address] [place], [place], [id number] Thyroid stimulating immunogl obulins detectionOrdered By: Ortega Medrano on 02-05-2025 Thyroid stimulating immunoglobulins Ql (S) <0.10 IU/L 0.00-0.55 [facility] Total proteinOrdered By: Jose Medrano on 02-05-2025 Protein [Mass/Vol] 7.2 g/dL 5.9-8.4 [facility] Triglycerides measurementOrd ered By: Ortega Medrano on 02-05-2025 Triglyceride [Mass/Vol] 293 mg/dL High <199 [facility] Comment on above: The drugs N-Acetylcy steine and Metamizole may falsely depress this assay. Normal range: <150 mg/dLBorderline High: 150-199 mg/dLHigh: 200-499 mg/dLVery High: >500 mg/dL Vitamin B12on 02-05-2025 Cobalamin (Vitamin B12) [Mass/Vol] 356 pg/mL Normal 180-914 [facility] Comment on above: Order Comment: Order Date: 02/05/25 Order Info: 0786-1 - CMP Order Info: [id number] - LIPID Order Info: [id number] - TSH Order Info: [id number] - T4F Performed By: #### L 3300.6900, L503.0106, L3300.6820, L506.1001 #### [facility] [address] [place], [place], [address] Vitamin B12 ser/plasOrdered By: Ortega Medrano on 02-05-2025 Cobalamin (Vitamin B12) [Mass/Vol] 356 pg/mL 180-914 [facility] Vitamin D,25 Hydroxyon 02-05 Vitamin D 25-OH 35.6 ng/mL Normal 30-100 [facility] Comment on above: Order Comment: Order Date: 02/05/25 Order Info: [id number] - CMP Order Info: [id number] - LIPID Order Info: 3 - TSH Order Info: 7 - T4F Result Comment: Ulba min D Status Deficiency: <20 ng/mL (50nmol/L) Insufficiency: 20-30 ng/mL (50-75 nmol/L) Sufficiency: 30-100 ng/mL (75-250 nmol/L) Toxicity: >100 ng/mL (>250 nmol/L) Performed By: #### L 3300.6900, L503.0106, L3300.6820, L506.1001 #### [facility] [address] [place], [address] White blood cell (WBC) count Ordered By: Ortega Medrano on 02-05-2025 WBC (Bld) [#/Vol] 11.0 10*3/uL 4.4-11.0 [facility] Absolute lymphocyte countOrd ered By: HEALTH ASSESSMENT on 11-15-2024 Lymphocytes Auto (Unsp spec) [#/Vol] 2.85 10*3/uL 0.83-4.51 [facility] Absolute neutrophil countOrd ered By: HEALTH ASSESSMENT on 11-15-2024 Neutrophils (Bld) [#/Vol] 5.7 10*3/uL 2.0-7.7 [facility] Absolute nucleated red blood cell countOrdered By: HEALTH ASSESSMENT on 11-15-2024 Nucleated RBC (Bld) [#/Vol] 0.00 10*3/uL 0-5 [facility] Anion gap in Serum or Plasma Ordered By: HEALTH ASSESSMENT on 11-15-2024 Anion gap [Moles/Vol] 9 mmol/L 5-15 [facility] BUN/creatinine ratioOrdered By: HEALTH ASSESSMENT on 11-15-2024 Urea nitrogen/Creatinine [Mass ratio] 14.5 mg/mg 10-20 [facility] Bilirubin directOrdered By: HEALTH ASSESSMENT on 11-15-2024 Bilirubin.direct [Mass/Vol] 0.14 mg/dL 0.00-0.30 [facility] Bilirubin, totalOrdered By: HEALTH ASSESSMENT on 11-15-2024 Bilirubin [Mass/Vol] 0.37 mg/dL 0.00-1.30 [facility] Blood band neutrophil count as percentage of total leukocytesOrdered By: HEALTH ASSESSMENT on 11-15-2024 Band form neutrophils/100 WBC (Bld) 61.9 % 47-70 [facility] CBC, Employeeon 11-15-2024 Absolute Lymph 2.85 X10 3/uL Normal 0.83-4.51 [facility] Comment on above: Performed By: #### L 400.7600 #### [facility] [address] [place], [address] Absolute Neut 5.7 X10 3/uL Normal 2.0-7.7 [facility] Comment on above: Performed By: #### L 400.7600 #### [facility] [address] [place], [address] Basophils/100 WBC (Bld) 0.8 % Normal 0-1 [facility] Comment on above: Performed By: #### L 400.7600 #### [facility] [address] [place], [address] Eosinophils/100 WBC (Bld) 1.4 % Normal 0-5 [facility] Comment on above: Performed By: #### L 400.7600 #### [facility] [address] [place], [address] Erythrocyte distribution width (RBC) [Ratio] 12.1 % Normal 11.6-14.6 [facility] Comment on above: Performed By: #### L 400.7600 #### [facility] [address] [place], [address] Hematocrit (Bld) [Volume fraction] 39.9 % Normal 37-47 [facility] Comment on above: Performed By: #### L 400.7600 #### [facility] [address] [place], [address] Hemoglobin (Bld) [Mass/Vol] 13.2 g/dL Normal 12.0-15.0 [facility] Comment on above: Performed By: #### L 400.7600 #### [facility] [address] [place], [address] Lymphocytes/100 WBC (Bld) 30.9 % Normal 19-41 [facility] Comment on above: Performed By: #### L 400.7600 #### [facility] [address] [place], [address] MCH (RBC) [Entitic mass] 30.6 pg Normal 27.0-32.0 [facility] Comment on above: Performed By: #### L 400.7600 #### [facility] [address] [place], [address] MCHC (RBC) [Mass/Vol] 33.1 g/dL Normal 32-36 [facility] Comment on above: Performed By: #### L 400.7600 #### [facility] [address] [place], [address] MCV (RBC) [Entitic vol] 92.4 fL Normal 81-99 [facility] Comment on above: Performed By: #### L 400.7600 #### [facility] [address] [place], [address] Monocytes/100 WBC (Bld) 4.7 % Normal 0-10 [facility] Comment on above: Performed By: #### L 400.7600 #### [facility] [address] [place], [address] Neutrophils/100 WBC (Bld) 61.9 % Normal 47-70 [facility] Comment on above: Performed By: #### L 400.7600 #### [facility] [address] [place], [address] NRBC # 0.00 10 3/uL Normal 0-5 [facility] Comment on above: Performed By: #### L 400.7600 #### [facility] [address] [place], [address] Nucleated RBC (Bld) [#/Vol] 0 10*3/uL Normal 0-5 [facility] Comment on above: Performed By: #### L 400.7600 #### [facility] [address] [place], [address] Platelet mean volume (Bld) [Entitic vol] 8.8 fL Normal 6.2-12.0 [facility] Comment on above: Performed By: #### L 400.7600 #### [facility] Laboratory [address] [place], [address] Platelets (Bld) [#/Vol] 354 10*3/uL Normal 150-450 [facility] Comment on above: Performed By: #### L 400.7600 #### [facility] [address] [place], [address] RBC (Bld) [#/Vol] 4.32 10*6/uL Normal 4.2-5.4 [facility] Comment on above: Performed By: #### L 400.7600 #### [facility] [address] [place], [address] RDW SD 41.0 fl Normal 35.1-43.9 [facility] Comment on above: Performed By: #### L 400.7600 #### [facility] [address] [place], [address] WBC (Bld) [#/Vol] 9.2 10*3/uL Normal 4.4-11.0 [facility] Comment on above: Performed By: #### L 400.7600 #### [facility] [address] [place], [address] Calculated very low density lipoprotein (VLDL) cholesterol measurementOrdered By: HEALTH ASSESSMENT on 11-15-2024 Calculated very low density lipoprotein (VLDL) cholesterol measurement 41 mg/dL High 5-40 [facility] Carbon dioxide, total [Moles /volume] in Central venous bloodOrdered By: HEALTH ASSESSMENT on 11-15-2024 CO2 [Moles/Vol] 23.0 mmol/L 21.0-32.0 [facility] Chloride assayOrdered By: HE ALTH ASSESSMENT on 11-15-2024 Chloride [Moles/Vol] 106 mmol/L 98-108 [facility] Employee Profileon Cholesterol in LDL [Mass/Vol] 133 mg/dL High 0-130 [facility] Comment on above: Performed By: #### L 400.7600 #### [facility] [address] [place], [address] Erythrocyte distribution wid th ratioOrdered By: HEALTH ASSESSMENT on 11-15-2024 Erythrocyte distribution width (RBC) [Ratio] 12.1 % 11.6-14.6 [facility] Erythrocyte distribution wid th standard deviationOrdered By: HEALTH ASSESSMENT on 11-15-2024 Erythrocyte distribution width (RBC) [Ratio] 41.0 fl 35.1-43.9 [facility] Glomerular filtration rate ( GFR) estimation/1.73 sq m using serum, plasma, or whole bOrdered By: HEALTH ASSESSMENT on 11-15-2024 GFR/1.73 sq M.predicted among non-blacks MDRD (S/P/Bld) [Vol rate/Area] 95 mL/min/{1.73_m2} >60 [facility] Comment on above: mL/min/1.73m2 CKD-EP I Creatinine Equation (2020) Hematocrit Auto (Bld) [Volum e fraction]Ordered By: HEALTH ASSESSMENT on 11-15-2024 Hematocrit (Bld) [Volume fraction] 39.9 % 37-47 [facility] Hemoglobin measurementOrdere d By: HEALTH ASSESSMENT on 11-15-2024 Hemoglobin (Bld) [Mass/Vol] 13.2 g/dL 12.0-15.0 [facility] Laboratory - Chemistry and C hemistry - challengeOrdered By: HEALTH ASSESSMENT on 11-15-2024 AST [Catalytic activity/Vol] 12 U/L <32 [facility] Lactate dehydrogenase (LDH) measurementOrdered By: HEALTH ASSESSMENT on 11-15-2024 LDH [Catalytic activity/Vol] 168 U/L 84-246 [facility] Low density lipoprotein (LDL ) cholesterol measurementOrdered By: HEALTH ASSESSMENT on 11-15-2024 Cholesterol in LDL [Mass/Vol] 133 mg/dL High 0-130 [facility] MCV (mean corpuscular volume ) determinationOrdered By: HEALTH ASSESSMENT on 11-15-2024 MCV (RBC) [Entitic vol] 92.4 fL 81-99 [facility] Mean corpuscular hemoglobin (MCH) determinationOrdered By: HEALTH ASSESSMENT on 11-15-2024 MCH (RBC) [Entitic mass] 30.6 pg 27.0-32.0 [facility] Mean corpuscular hemoglobin concentration (MCHC) determinationOrdered By: HEALTH ASSESSMENT on 11-15-2024 MCHC (RBC) [Mass/Vol] 33.1 g/dL 32-36 [facility] Mean platelet volume determi nationOrdered By: HEALTH ASSESSMENT on 11-15-2024 Platelet mean volume (Bld) [Entitic vol] 8.8 fL 6.2-12.0 [facility] Nucleated red blood cell per centageOrdered By: HEALTH ASSESSMENT on 11-15-2024 Nucleated RBC/100 WBC (Bld) [Ratio] 0 % 0-5 [facility] Platelet countOrdered By: HE ALTH ASSESSMENT on 11-15-2024 Platelets (Bld) [#/Vol] 354 10*3/uL 150-450 [facility] Potassium measurement (mass/ volume)Ordered By: HEALTH ASSESSMENT on 11-15-2024 Potassium (Unsp spec) [Mass/Vol] 4.3 mmol/L 3.3-5.1 [facility] RBC Auto (Bld) [#/Vol]Ordere d By: HEALTH ASSESSMENT on 11-15-2024 RBC (Bld) [#/Vol] 4.32 10*6/uL 4.2-5.4 [facility] Screening total cholesterol/ high density lipoprotein (HDL) cholesterol ratioOrdered By: HEALTH ASSESSMENT on 11-15-2024 Cholesterol.total/Cho lesterol in HDL [Mass ratio] 4.65 {ratio} [facility] Serum creatinine measurement (mass/volume)Ordered By: HEALTH ASSESSMENT on 11-15-2024 Creatinine [Mass/Vol] 0.82 mg/dL 0.70-1.20 [facility] Serum globulin measurementOr dered By: HEALTH ASSESSMENT on 11-15-2024 Globulin (S) [Mass/Vol] 2.9 g/dL 2.2-4.2 [facility] Serum glucose measurement (m ass/volume)Ordered By: HEALTH ASSESSMENT on 11-15-2024 Glucose [Mass/Vol] 98 mg/dL 70-99 [facility] Serum or plasma alanine gorman otransferase (ALT) measurementOrdered By: HEALTH ASSESSMENT on 11-15-2024 ALT [Catalytic activity/Vol] 8 U/L <35 [facility] Serum or plasma albumin harry urement (mass/volume)Ordered By: HEALTH ASSESSMENT on 11-15-2024 Albumin [Mass/Vol] 4.0 g/dL 3.5-5.0 [facility] Serum or plasma albumin/glob ulin mass ratioOrdered By: HEALTH ASSESSMENT on 11-15-2024 Albumin/Globulin [Mass ratio] 1.4 {ratio} 0.9-2.4 [facility] Serum or plasma alkaline domi sphatase measurementOrdered By: HEALTH ASSESSMENT on 11-15-2024 ALP [Catalytic activity/Vol] 58 U/L 35-104 [facility] Serum or plasma calcium harry urement (mass/volume)Ordered By: HEALTH ASSESSMENT on 11-15-2024 Calcium [Mass/Vol] 9.0 mg/dL 7.6-11.0 [facility] Serum or plasma cholesterol in HDL measurement (mass/volume)Ordered By: HEALTH ASSESSMENT on 11-15-2024 Cholesterol in HDL [Mass/Vol] 48 mg/dL >40 [facility] Comment on above: National Cholesterol Education Program (NCEP) guidelines:<40 mg/dL: Low HDL-cholesterol (major risk factor for CHD)>= 60 mg/dL: High HDL-cholesterol (negative risk factor for CHD)HDL-cholesterol is affected by a number of factors, e.g. smoking, exercise, hormones, sex and age. Serum or plasma cholesterol measurement (mass/volume)Ordered By: HEALTH ASSESSMENT on 11-15-2024 Cholesterol [Mass/Vol] 222 mg/dL High <201 [facility] Comment on above: Cholesterol level, D esirable <200 mg/dLBorderline high cholesterol 200-239 mg/dLHigh cholesterol >=240 mg/dLRecommendations of the NCEP Adult Treatment Panel for the following risk-cutoff thresholds for the [place] population. Serum or plasma urea nitroge n measurement (mass/volume)Ordered By: HEALTH ASSESSMENT on 11-15-2024 Urea nitrogen [Mass/Vol] 12 mg/dL 4-19 [facility] Serum or plasma uric acid me asurement (mass/volume)Ordered By: HEALTH ASSESSMENT on 11-15-2024 Urate [Mass/Vol] 3.9 mg/dL 2.6-6.0 [facility] Comment on above: The drugs N-Acetylcy steine and Metamizole may falsely depress this assay. Sodium levelOrdered By: [facility] ASSESSMENT on 11-15-2024 Sodium [Moles/Vol] 138 mmol/L 133-145 [facility] Total proteinOrdered By: A [facility] ASSESSMENT on 11-15-2024 Protein [Mass/Vol] 6.9 g/dL 5.9-8.4 [facility] Triglycerides measurementOrd ered By: [facility] ASSESSMENT on 11-15-2024 Triglyceride [Mass/Vol] 207 mg/dL High <199 [facility] Comment on above: The drugs N-Acetylcy steine and Metamizole may falsely depress this assay. Normal range: <150 mg/dLBorderline High: 150-199 mg/dLHigh: 200-499 mg/dLVery High: >500 mg/dL White blood cell (WBC) count Ordered By: HEALTH ASSESSMENT on 11-15-2024 WBC (Bld) [#/Vol] 9.2 10*3/uL 4.4-11.0 [facility] Quantiferon TB-Gold+on 10-30 QFT MITOGEN GERBER > 10.00 Normal . [facility] Comment on above: Order Comment: REDRA W Performed By: #### L 400.7600 #### [facility] [address] [place], [place], [id number] QFT NIL VALUE 0.08 IU/mL Normal . [facility] Comment on above: Order Comment: REDRA W Performed By: #### L 400.7600 #### [facility] [address] [place], [place], [address] QFT TB GOLD+ Comment Normal . [facility] Comment on above: Order Comment: REDRA W [...] for the test. Performed By: #### L 400.7600 #### [facility] [address] [facility] [place], [address] QFT TB POS CRIT Negative Normal Negative [facility] Comment on above: Order Comment: REDRA W [...] interferon gamma. Chemiluminescence immunoassay methodology Performed at: [facility] [id number] Supervisor Assembly Department: Rodrigo Edmondson PhD, Phone: [phone] Performed By: #### L [id number] #### [facility] [address] [facility] [place], [address] QFT TB1+ AG GERBER 0.16 IU/mL Normal . [facility] Comment on above: Order Comment: REDRA W Performed By: #### L [id number] #### [facility] [address] [facility]. [place] [id number] QFT TB2+ AG GERBER 0.18 IU/mL Normal . [facility] Comment on above: Order Comment: REDRA W Performed By: #### L 400.7600 #### [facility] [address] [facility] [place], [address] Qualitative QuantiFERON-TB g old in tube testOrdered By: HEALTH ASSESSMENT on 10-25-2024 M. tuberculosis tuberculin stim IFN-g Ql (Bld) 0.16 IU/mL . [facility] Quantiferon TB-Gold+on 10-23 QFT MITOGEN GERBER Normal [facility] Comment on above: Result Comment: left in incubator too long Performed By: #### L 3400.8000 #### [facility] [address] [place], [address] QFT NIL VALUE Normal [facility] Comment on above: Result Comment: left in incubator too long Performed By: #### L 3400.8000 #### [facility] [address] [place], [address] QFT TB GOLD+ Normal [facility] Comment on above: Result Comment: left in incubator too long Performed By: #### L 3400.8000 #### [facility] [address] [place], [address] QFT TB POS CRIT Normal [facility] Comment on above: Result Comment: left in incubator too long Performed By: #### L 3400.8000 #### [facility] [address] [place], [address] QFT TB1+ AG GERBER Normal [facility] Comment on above: Result Comment: left in incubator too long Performed By: #### L 3400.8000 #### [facility] [address] [place], [address] QFT TB2+ AG GERBER Normal [facility] Comment on above: Result Comment: left in incubator too long Performed By: #### L 3400.8000 #### [facility] [address] [place], [address] PAP IG HPV APTIMA 16/18,45on 08-04-2024 ADEQ Comment Normal . [facility] Comment on above: Order Comment: Speci men Comment: [id number] Comment: No. of containers..01 ThinPrep Vial Result Comment: Sati sfactory for evaluation. Endocervical and/or squamous metaplastic cells (endocervical component) are present. Performed By: #### L 3400.8000 #### [facility] [address] [place], [place], [address] COMM . Normal . [facility] Comment on above: Order Comment: Speci men Comment: [id number] Comment: No. of containers..01 ThinPrep Vial Performed By: #### L 3400.8000 #### [facility] [address] [place], [address] COMMENT Comment Normal . [facility] Comment on above: Order Comment: Speci men Comment: [id number] Comment: No. of containers..01 ThinPrep Vial Result Comment: This liquid based ThinPrep(R) pap test was screened with the use of an image guided system. Performed By: #### L 3400.8000 #### [facility] [address] [place], [place], [address] DIAG Comment Normal . [facility] Comment on above: Order Comment: Speci men Comment: [id number] Comment: No. of containers..01 ThinPrep Vial Result Comment: NEGA TIVE FOR INTRAEPITHELIAL LESION OR MALIGNANCY. Performed By: #### L 3400.8000 #### [facility] [address] [place], [address] HPV APTIMA, HR Negative Normal Negative [facility] Comment on above: Order Comment: Speci men Comment: [id number] Comment: No. of containers..01 ThinPrep Vial Result Comment: This nucleic acid amplification test detects fourteen high- risk HPV types (16,18,31,33,35,39,45,51,52,56,58,59,66,68) without differentiation. Performed By: #### L 3400.8000 #### [facility] [address] [place], [place], [address] HPV Mi Rfx Comment Normal . [facility] Comment on above: Order Comment: Speci men Comment: [id number] Comment: No. of containers..01 ThinPrep Vial Result Comment: Crit silva not met, HPV Genotype not performed. Performed at: [facility] [address] [place], [place] [id number] Supervisor Assembly Department: Jeovanny Slade MD, Phone: [phone] Performed at: - [facility] [id number] Supervisor Assembly Department: Magalie Benítez MD, Phone: [phone] Performed at: = - [facility] [id number] Supervisor Assembly Department: Magalie Benítez MD, Phone: [phone] Performed By: #### L 3400.8000 #### [facility] [address] [place], [address] PAPSMR Comment Normal . [facility] Comment on above: Order Comment: Speci men Comment: [id number] Comment: No. of containers..01 ThinPrep Vial Result Comment: The Pap smear is a screening test designed to aid in the detection of premalignant and malignant conditions of the uterine cervix. It is not a diagnostic procedure and should not be used as the sole means of detecting cervical cancer. Both false-positive and false-negative reports do occur. Performed By: #### L 3400.8000 #### [facility] [address] [place], [place], [address] PERFORM Comment Normal . [facility] Comment on above: Order Comment: Speci men Comment: [id number] Comment: No. of containers..01 ThinPrep Vial Result Comment: Joslyn Tolentino, Appeals Writer (ASCP) Performed By: #### L 3400.8000 #### [facility] [address] [place], [address] CNOVon 07-30-2024 CNOV Office Visit (UCWSTR ) YENIHAMLET TAPIA ([id number]) 1985 F [facility] Date Time Provider Department 07/30/24 3:15 PM YORDY ANDERSEN [facility] During your visit today, we recorded the following information about you: Temperature Pulse Respiration Blood pressure 98.6 degrees 80/minute 21/minute 122/80 Weight 98.6 kg Yordy Andersen MD 07/30/2024 3:43 PM Signed Patient presents with: Cough: Sinus issues, sore throat, drainage, CORONEL x 1.5 weeks HPI: Feeling sick for [...] Wt 98.6 kg (217 lb 6 oz) [facility] 02/19/2014 SpO2 98% BMI 38.51 kg/m? PHYSICAL [...] [28] Cmt: Sinus issues, sore throat, drainage, CORONEL x 1.5 weeks Primary Visit Diagnosis:Acute non-recurrent [...] Medications Discontinued During This Encounter Prescriptions - Pmujexsv-Sl-Ibk-Fe-FA ( VITAMIN) tab (Discontinued) Reported on 07/30/2024 - fenugreek seed extract 500 mg cap (Discontinued) Reported on 07/30/2024 - Breast Pump mynor (Discontinued) Reported on 07/30/2024 - Breast Pump mynor (Discontinued) Reported on 07/30/2024 - OLIVEIRA'S YEAST ORAL (Discontinued) Reported on 07/30/2024 - Norethindrone, Contraceptive, (ORTHO MICRONOR) 0.35 mg tablet (Discontinued) Reported on 07/30/2024 Level of Service: OFFICE/OUTPATIENT [facility] 30 MINUTES [76840] Encounter Status:Closed by YORDY ANDERSEN on 07/30/24 [facility] 37on 07-29-2024 37 -Healed well. Normal [facility] Office Visiton 07-29-2024 Follow-up visit [id number] Hamlet Teixeira 1985 F Date Provider Department Center 07/29/2024 [id number] [facility] None Family History Family Status - Relation Status Age at Mother Alive Father Alive Brother Alive Daughter Alive Son Level of Service:90708 ID POSTOP FOLLOW UP VISIT RELATED TO ORIGINAL PX Reason for Visit and Comments: Follow-up [[id number]] - follow up to perianal abscess drainage in office 07/07/24-antibiotic course. Other [0] - Pt unaccompanied [facility] Progress Noteon 07-29-2024 Progress Note @ASSESSMENTBEGINPHAN [...] Review of Systems as recordedby the medical dermatologist has been reviewed by me, and I [...] MD on 07/29/2024 at 3:29 PM. Normal [facility] [employer] Office Visit Reporton 07-28-2024 [employer] Office Visit Report 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 Normal [facility] Office Visiton 07-07-2024 Follow-up visit [id number] Hamlet Teixeira 1985 F Date Provider Department Center 07/07/2024 [facility] None Family History Family Status - Relation Status Age at Mother Alive Father Alive Brother Alive Daughter Alive Son Level of Service:07400 ID OFFICE/OUTPT VISIT,PROCEDURE ONLY Reason for Visit and Comments: New Patient [542] - Evaluation for perianal abscess referring Dr. Guerra Other [0] - Pt unaccomapnied Normal [facility] Progress Noteon 07-07-2024 Progress Note @ASSESSMENTBEGINPHAN [...] Review of Systems as recordedby the medical dermatologist has been reviewed by me, and I [...] MD on 07/07/2024 at 2:51 PM. Normal [facility] Absolute lymphocyte countOrd ered By: Michell Woodard on 09-19-2023 Lymphocytes Auto (Unsp spec) [#/Vol] 2.61 10*3/uL 0.83-4.51 [facility] Automated lymphocyte count a s percentage of total leukocytesOrdered By: Michell Woodard on 09-19-2023 Lymphocytes/100 WBC Auto (Unsp spec) 36.7 % 19-41 [facility] Basophil percentageOrdered B y: Michell Woodard on 09-19-2023 Basophils/100 WBC (Bld) 1.0 % 0-1 [facility] Bilirubin [Mass/Vol] 0.50 mg/dL 0.20-1.00 [facility] Comment on above: For patients on eltr ombopag therapy, use of Dimension Jones TBIL is not recommended. Chloride [Moles/Vol] 113 mmol/L 98-107 [facility] Cholesterol [Mass/Vol] 210 mg/dL <200 [facility] Comment on above: <200 mg/dL Desirable 200-240 mg/dL Borderline >240 mg/dL High Risk Eosinophils/100 WBC (Bld) 3.4 % 0-5 [facility] Glucose [Mass/Vol] 104 mg/dL 74-106 [facility] Comment on above: Fasting Glucose resu lt from 100 to 125 mg/dL suggests IMPAIRED HOMEOSTASIS per A.D.A. criteria. Hemoglobin (Bld) [Mass/Vol] 12.6 g/dL 12.0-15.0 [facility] Monocytes/100 WBC (Bld) 6.3 % 0-10 [facility] Neutrophils (Bld) [#/Vol] 3.7 10*3/uL 2.0-7.7 [facility] Neutrophils/100 WBC (Bld) 52.3 % 47-70 [facility] Potassium [Moles/Vol] 3.9 mmol/L 3.5-5.1 [facility] Protein [Mass/Vol] 7.3 g/dL 6.4-8.2 [facility] Sodium [Moles/Vol] 140 mmol/L 136-145 [facility] Triglyceride [Mass/Vol] 170 mg/dL <199 [facility] Comment on above: The drugs N-Acetylcy steine and Metamizole may falsely depress this assay.Serum Triglycerides Reference Interval Normal <150 mg/dL Borderline high 150 - 199 mg/dL High 200 - 499 mg/dL Very High > or = 500 mg/dL WBC (Bld) [#/Vol] 7.1 10*3/uL 4.4-11.0 [facility] Determination of erythrocyte mean corpuscular volume (MCV)Ordered By: Michell Woodard on 09-19-2023 MCV (RBC) [Entitic vol] 90.1 fL 81-99 [facility] Erythrocyte distribution wid th ratioOrdered By: Michell Woodard on 09-19-2023 Erythrocyte distribution width (RBC) [Ratio] 12.7 % 11.6-14.6 [facility] Erythrocyte distribution wid th standard deviationOrdered By: Michell Woodard on 09-19-2023 Erythrocyte distribution width (RBC) [Entitic vol] 41.9 fL 35.1-43.9 [facility] Hematocrit Auto (Bld) [Volum e fraction]Ordered By: Michell Woodard on 09-19-2023 Hematocrit (Bld) [Volume fraction] 39.2 % 37-47 [facility] High density lipoprotein (HD L) measurementOrdered By: Michell Woodard on 09-19-2023 Cholesterol in HDL (Body fld) [Mass/Vol] 41 mg/dL >40 [facility] Comment on above: The drugs N-Acetylcy steine and Metamizole may falsely depress this assay. Reference Range HDL <40 mg/dL Low HDL Cholesterol HDL >or= 60 mg/dL High HDL Cholesterol Immature granulocytes/100 WB C Auto (Bld)Ordered By: Michell Woodard on 09-19-2023 Immature granulocytes/100 WBC (Bld) 0.300 % 0.0-0.9 [facility] Comment on above: IG% - Immature Granu locytes (promyelocytes, myelocytes and metamyelocytes) > 1% indicates that a LEFT SHIFT is Present. Laboratory - Chemistry and C hemistry - challengeOrdered By: Michell Woodard on 09-19-2023 Albumin/Globulin [Mass ratio] 0.9 {ratio} 0.9-2.4 [facility] ALP [Catalytic activity/Vol] 68 U/L 45-117 [facility] ALT [Catalytic activity/Vol] 34 U/L 13-56 [facility] CO2 [Moles/Vol] 25.0 mmol/L 21.0-32.0 [facility] Globulin (S) [Mass/Vol] 3.9 g/dL 2.2-4.2 [facility] Urea nitrogen/Creatinine [Mass ratio] 12.3 mg/mg 10-20 [facility] Laboratory - Hematology and Cell countsOrdered By: Michell Woodard on 09-19-2023 MCH (RBC) [Entitic mass] 29.0 pg 27.0-32.0 [facility] MCHC (RBC) [Mass/Vol] 32.1 g/dL 32-36 [facility] Nucleated RBC/100 WBC (Bld) [Ratio] 0 % 0-5 [facility] Platelets (Bld) [#/Vol] 304 10*3/uL 150-450 [facility] Low density lipoprotein (LDL ) cholesterol measurementOrdered By: Michell Woodard on 09-19-2023 Cholesterol in LDL (Body fld) [Moles/Vol] 135 mg/dL 0-130 [facility] No Panel InformationOrdered By: Michell Woodard on 09-19-2023 Vitamin D 25-Hydroxy 23.2 ng/mL [facility] Comment on above: Vitamin D 25(OH) Sta tus Range Deficiency <20 ng/mL (50nmol/L) Insufficiency 20 - 30 ng/mL (50 - 75 nmol/L) Sufficiency 30 - 100 ng/mL (75 - 250 nmol/L) Toxicity >100 ng/mL (>250 nmol/L) Estimated GFR (MDRD) Amer 102 mL/min >60 [facility] Comment on above: GFR Calc Estimated GFR (MDRD) Non-Af Amer 84 mL/min >60 [facility] Comment on above: Non- GFR Calc Platelet mean volume Rafael-Ec ker (Bld) [Entitic vol]Ordered By: Michell Woodard on 09-19-2023 Platelet mean volume (Bld) [Entitic vol] 8.6 fL 6.2-12.0 [facility] RBC Auto (Bld) [#/Vol]Ordere d By: Michell Woodard on 09-19-2023 RBC (Bld) [#/Vol] 4.35 10*6/uL 4.2-5.4 [facility] Serum or plasma calcium harry urement (mass/volume)Ordered By: Michell Woodard on 09-19-2023 Calcium [Mass/Vol] 9.0 mg/dL 8.5-10.1 [facility] Serum or plasma creatinine m easurement (mass/volume)Ordered By: Michell Woodard on 09-19-2023 Creatinine [Mass/Vol] 0.81 mg/dL 0.55-1.02 [facility] Comment on above: The validity of the calculated GFR & GFRAA in patients over 70 years has not been determined. Clinical correlation is essential. Serum or plasma thyroid stim ulating hormone (TSH) measurement (units/volume)Ordered By: Michell Woodard on 09-19-2023 TSH Qn 1.55 uIU/mL 0.358-3.74 [facility] Serum or plasma thyroperoxid ase antibody assay (units/volume)Ordered By: Michell Woodard on 09-19-2023 TPO Ab Qn [IU]/mL 0-34 [facility] Comment on above: Performed at: - [address] [id number] Director: Rodrigo Edmondson PhD, Phone: [phone] Serum or plasma urea nitroge n measurement (mass/volume)Ordered By: Michell Woodard on 09-19-2023 Urea nitrogen [Mass/Vol] 10 mg/dL 7-18 [facility] Thin prep Papanicolaou smear with manual screeningOrdered By: Michell Woodard on 09-19-2023 Thin prep Papanicolaou smear with manual screening 0.80 ng/dL 0.76-1.46 [facility] Thin prep Papanicolaou smear with manual screening 3.4 g/dL 3.2-5.0 [facility] Thin prep Papanicolaou smear with manual screening 20 U/L 15-37 [facility] Thin prep Papanicolaou smear with manual screening 2 5-15 [facility] Very low density lipoprotein (VLDL) cholesterol measurementOrdered By: Michell Woodard on 09-19-2023 Cholesterol in VLDL Calc [Moles/Vol] 34 mg/dL 5-40 [facility] Whole blood hemoglobin A1c/t otal hemoglobin ratio (mass fraction)Ordered By: Michell Woodard on 09-19-2023 HbA1c (Bld) [Mass fraction] 5.5 % 3.8-5.6 [facility] Comment on above: Normal < 5.7 % Predi abetic 5.7 - 6.4 % Diabetic >or= 6.5 % Please note range changes. CBCon 02-07-2019 Erythrocyte distribution width (RBC) [Ratio] 12.0 % Normal 11-14.5 [facility] Comment on above: Order Comment: Kailash Colon Performed By: #### L 500.84374, L500.06140, L500.08490, L500.73818 #### [facility] [address] [place] [address] Hematocrit (Bld) [Volume fraction] 37.4 % Normal 35.0-47.0 [facility] Comment on above: Order Comment: Campu s: M Performed By: #### L 500.97861, L500.95386, L500.99387, L500.81973 #### [facility] [address] [place] [address] Hemoglobin (Bld) [Mass/Vol] 12.2 g/dL Normal 11.5-15.5 [facility] Comment on above: Order Comment: Campu s: M Performed By: #### L 500.48039, L500.31905, L500.24452, L500.99216 #### [facility] [address] [place] [address] MCHC (RBC) [Mass/Vol] 32.6 g/dL Normal 32.0-36.0 [facility] Comment on above: Order Comment: Campu s: M Performed By: #### L 500.10870, L500.95538, L500.23470, L500.89680 #### [facility] [address] [place] [address] MCV (RBC) [Entitic vol] 91.9 fL Normal 80.0-99.0 [facility] Comment on above: Order Comment: Campu s: M Performed By: #### L 500.13273, L500.41277, L500.17427, L500.01808 #### [facility] [address] [place], [place] [id number] Nucleated RBC/100 WBC (Bld) [Ratio] 0.0 % Normal Less than 1 [facility] Comment on above: Order Comment: Campu s: M Performed By: #### L 500.04105, L500.82503, L500.61391, L500.16854 #### [facility] [address] [place], [place] [address] Platelet mean volume (Bld) [Entitic vol] 8.7 fL Low 9.4-12.4 [facility] Comment on above: Order Comment: Campu s: M Performed By: #### L 500.52064, L500.14139, L500.09085, L500.26405 #### [facility] [address] [place] [address] Platelets (Bld) [#/Vol] 280 K/CU MM Normal 150-450 [facility] Comment on above: Order Comment: Campu s: M Performed By: #### L 500.01343, L500.32498, L500.96221, L500.90426 #### [facility] [address] [place] [address] RBC (Bld) [#/Vol] 4.07 M/CU MM Normal 3.90-5.30 [facility] Comment on above: Order Comment: Campu s: M Performed By: #### L 500.22139, L500.56561, L500.36814, L500.56338 #### [facility] [address] [place] [address] WBC (Bld) [#/Vol] 18.7 K/CUMM High 4.5-11.0 [facility] Comment on above: Order Comment: Campu s: M Performed By: #### L 500.80530, L500.06360, L500.05990, L500.27295 #### [facility] [address] [place] [address] CONS.ONCon 02-07-2019 CONS.ONC [facility] Patient Name: HAMLET TEIXEIRA [address] [place] [address] Date of : [address] [address] Unit Number: [id number] CONSULTATION-ONC Patient Status: ADM IN Attending Doctor: Sia Ashton MD Service Date: 02/07/19 2870 CONSULTATION-ONCOLOGY Referring Physician Margaret Luna MD Consulted [...] per week. She is . 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 Allergies Coded Allergies: NO [...] Shai Brown CNP Verified/Reviewed by 02/07/19 1218 [facility] CONSULTATION-ONC [facility] HAMLET TEIXEIRA [address] Date of : [address] [address] Unit Number: [id number] Progress Note-Hospitalist Patient Status: DIS IN Attending [...] Recent Impressions (24H) COMPUTERIZED TOMOGRAPHY - CT [place] W/POST PROC 02/07 1940 Report Impression - [...] They did not recommend thrombophilia work-up. Consulted [facility] for removal of the NuvaRing. Patient is [...] Margaret Luna MD Verified/Reviewed by 02/11/19 0938 [facility] Progress Note-Hospitalist [facility] 02-06-2019 Anion gap [Moles/Vol] 7 mmol/L Normal 5-16 [facility] Comment on above: Order Comment: Campu s: M Performed By: #### L 500.64582, L500.09221, L500.94943 #### [facility] [place] [address] Calcium [Mass/Vol] 8.8 mg/dL Normal 8.5-10.1 [facility] Comment on above: Order Comment: Campu s: M Performed By: #### L 500.81661, L500.56723, L500.19410 #### [facility] [address] [place] [address] Chloride [Moles/Vol] 106 mmol/L Normal 98-107 [facility] Comment on above: Order Comment: Campu s: M Performed By: #### L 500.15599, L500.18930, L500.30713 #### [facility] [address] [id number] CO2 [Moles/Vol] 26 mmol/L Normal 21-32 [facility] Comment on above: Order Comment: Ankushu s: M Performed By: #### L 500.04730, L500.97633, L500.02054 #### [facility] [place] [address] Creatinine [Mass/Vol] 0.820 mg/dL Normal 0.510- 0.95 0 [facility] Comment on above: Order Comment: Campu s: M Result Comment: Kathy ents receiving either N-Acetylcysteine (NAC) or Metamizole prior to venipuncture, may have falsely depressed results. Performed By: #### L 500.00092, L500.56089, L500.50148 #### [facility] [address] [place] [address] Glucose [Mass/Vol] 83 mg/dL Normal 70-100 [facility] Comment on above: Order Comment: Campu s: M Result Comment: 70-1 00- Normal Fasting; 100-125 Impaired Fasting; greater than 126 on more than one result- Diabetes. ADA guidelines. Results may be falsely elevated after the administration of Sulfapyridine. Results may be falsely depressed after the administration of Sulfasalazine. Performed By: #### L 500.33286, L500.09530, L500.28721 #### [facility] [address] [place] [address] Potassium [Moles/Vol] 4.3 mmol/L Normal 3.5-5.1 [facility] Comment on above: Order Comment: Ankushu s: M Performed By: #### L 500.91843, L500.51009, L500.45290 #### [facility] [place] [address] Sodium [Moles/Vol] 138 mmol/L Normal 136-145 [facility] Comment on above: Order Comment: Campu s: M Performed By: #### L 500.36335, L500.46822, L500.59824 #### [facility] [address] [place] [address] Urea nitrogen [Mass/Vol] 11 mg/dL Normal 7-26 [facility] Comment on above: Order Comment: Campu s: M Performed By: #### L 500.79346, L500.20436, L500.58351 #### [facility] [address] [place] [address] Urea nitrogen/Creatinine [Mass ratio] 14 mg/mg Low 15-24 [facility] Comment on above: Order Comment: Campu s: M Performed By: #### L 500.61232, L500.42109, L500.00703 #### [facility] [address] [place] [address] CBC W/DIFFon 02-06-2019 BASO ABS 0.10 K/CU MM Normal 0-0.2 [facility] Comment on above: Order Comment: Campu s: M Performed By: #### L 200.01249 #### [facility] [address] [place] [address] Basophils/100 WBC (Bld) 0.5 % Normal 0-2 [facility] Comment [facility] above: Order Comment: Campu s: M Performed By: #### L 200.69699 #### [facility] [address] [place] [address] EOS ABS 0.20 K/CU MM Normal 0-0.5 [facility] Comment on above: Order Comment: Campu s: M Performed By: #### L 200.10265 #### [facility] [address] [place] [address] Eosinophils/100 WBC (Bld) 1.0 % Normal 0-5 [facility] Comment on above: Order Comment: Campu s: M Performed By: #### L 200.32656 #### [facility] [address] [place] [address] Erythrocyte distribution width (RBC) [Ratio] 12.2 % Normal 11-14.5 [facility] Comment on above: Order Comment: Campu s: M Performed By: #### L 200.97105 #### [facility] [address] [place] [address] Hematocrit (Bld) [Volume fraction] 42.5 % Normal 35.0-47.0 [facility] Comment on above: Order Comment: Campu s: M Performed By: #### L 200.57978 #### [facility] [address] [place] [address] Hemoglobin (Bld) [Mass/Vol] 13.5 g/dL Normal 11.5-15.5 [facility] Comment on above: Order Comment: Campu s: M Performed By: #### L 200.43722 #### [facility] [address] [place] [address] IMMATR GRAN ABS 0.10 K/CU MM Normal Less than 2 [facility] Comment on above: Order Comment: Campu s: M Performed By: #### L 200.15578 #### [facility] [address] [place] [address] IMMATURE GRAN % 0.6 % Normal Less than 2 [facility] Comment on above: Order Comment: Campu s: M Performed By: #### L 200.43655 #### [facility] [address] [place] [address] Lymphocytes (Bld) [#/Vol] 4.40 K/CU MM Normal 0.9-4.4 [facility] Comment on above: Order Comment: Campu s: M Performed By: #### L 200.41527 #### [facility] [address] [place] [address] Lymphocytes/100 WBC (Bld) 20.1 % Normal 20-40 [facility] Comment on above: Order Comment: Campu s: M Performed By: #### L 200.77040 #### [facility] [address] [place] [address] MCHC (RBC) [Mass/Vol] 31.8 g/dL Low 32.0-36.0 [facility] Comment on above: Order Comment: Campu s: M Performed By: #### L 200.30984 #### [facility] [address] [place] [address] MCV (RBC) [Entitic vol] 92.0 fL Normal 80.0-99.0 [facility] Comment on above: Order Comment: Campu s: M Performed By: #### L 200.65250 #### [facility] [address] [place] [address] MONO ABS 1.20 K/CU MM High 0.1-1.1 [facility] Comment on above: Order Comment: Campu s: M Performed By: #### L 200.79246 #### [facility] [address] [place] [address] Monocytes/100 WBC (Bld) 5.7 % Normal 2-10 [facility] Comment on above: Order Comment: Campu s: M Performed By: #### L 200.34469 #### [facility] [address] [place] [address] NEUTROPHIL ABS 15.60 K/CU MM High 2.0-8.3 [facility] Comment on above: Order Comment: Campu s: M Performed By: #### L 200.22042 #### [facility] [address] [place] [address] Neutrophils/100 WBC (Bld) 72.1 % Normal 45-75 [facility] Comment on above: Order Comment: Campu s: M Performed By: #### L 200.48265 #### [facility] [place] [address] Nucleated RBC/100 WBC (Bld) [Ratio] 0.0 % Normal Less than 1 [facility] Comment on above: Order Comment: Campu s: M Performed By: #### L 200.46437 #### [facility] [address] [place] [address] Platelet mean volume (Bld) [Entitic vol] 8.6 fL Low 9.4-12.4 [facility] Comment on above: Order Comment: Campu s: M Performed By: #### L 200.83975 #### [facility] [address] [place] [address] Platelets (Bld) [#/Vol] 300 K/CU MM Normal 150-450 [facility] Comment on above: Order Comment: Campu s: M Performed By: #### L 200.80866 #### [facility] [address] [place] [address] RBC (Bld) [#/Vol] 4.62 M/CU MM Normal 3.90-5.30 [facility] Comment on above: Order Comment: Campu s: M Performed By: #### L 200.90272 #### [facility] [address] [place] [address] WBC (Bld) [#/Vol] 21.7 K/CUMM High 4.5-11.0 [facility] Comment on above: Order Comment: Campu s: M Performed By: #### L 200.93284 #### [facility] [address] [place] [address] CDLECHOon 02-06-2019 CDLECHO INTERPRETING PHYSICI AN: Tammy [...] has normal dimensions. The visually estimated [facility] PATIENT NAME: HAMLET TEIXEIRA [address] [facility] [address] MEDICAL REC #: [id number] [place] [address] ADMIT DATE: 02/06/19 DISCHARGE DATE: 02/08/19 ATTENDING [...] mitral and tricuspid regurgitation. Tammy Henson MD [id number] SSI File#: [id number] Verified/Reviewed by [id number] PATIENT NAME: HAMLET TEIXEIRA [address] [facility] [address] MEDICAL REC #: [id number] [place] [address] ADMIT DATE: 02/06/19 DISCHARGE DATE: 02/08/19 ATTENDING PHY: Sia Ashton MD ECHOCARDIOGRAM REPORT Normal [facility] ECHOCARDIOGRAM REPORT Normal [facility] CT ANG THOR W/POST PROCon CT [...] PENA M.D. Signed By: SCOTT PENA M.D. [facility] Steven Arnold 02-06-2019 EMERGENCY PHYSICIAN REPORT This is a preliminary report only, as the practitioner review and authentication has not occurred. [facility] ER PHYSICIAN ASSESSMENT RECORDS : FlexChartData Event Time: 02/06/2019 20:55 Status: Signed [facility] Hamlet Teixeira [[id number]] Attending Physician 1985 Chart (V2b) Chart created at 02/06/2019 20:14 by Ryan Saldana Chart closed at 02/06/2019 20:22 Entry in Emergency Department at 02/06/2019 16:42 Patient Name: Hamlet Teixeira Record Number: [id number] Date: 02/06/2019 20:14 Entered Department at: 02/06/2019 [...] Onset: Days ago; Timing: Sudden Onset; [facility] PATIENT NAME: HAMLET TEIXEIRA [facility] [address]am MEDICAL REC #: [id number] [place] [address] EMERGENCY DEPARTMENT REPORT EMERGENCY DEPARTMENT PHYSICIAN Quality: [...] andgt;------andlt; 300 / 42.5 / N:72.1 [facility] PATIENT NAME: HAMLET TEIXEIRA [address] [facility] [address] Pham MEDICAL REC #: [id number] [place] [id number] EMERGENCY DEPARTMENT REPORT EMERGENCY DEPARTMENT PHYSICIAN BASO [...] axial images of the thorax were [facility] PATIENT NAME: HAMLET TEIXEIRA Dr. Pham MEDICAL REC #: [id number] [place] [address] EMERGENCY DEPARTMENT REPORT EMERGENCY DEPARTMENT PHYSICIAN obtained [...] small emboli in the right lung. [facility] PAT[facility]: [facility] MEDICAL REC #: [id number] [place] [address] EMERGENCY DEPARTMENT REPORT EMERGENCY DEPARTMENT PHYSICIAN ---- [...] Admit: Acute multiple bilateral pulmonary emboli.. [facility] PATIENT NAME: HAMLET TEIXEIRA [facility] [address] Pham MEDICAL REC #: [id number] [place] [address] EMERGENCY DEPARTMENT REPORT EMERGENCY DEPARTMENT PHYSICIAN Disposition: Admitted at 06 Feb 2019, 20:22. MSE completed. I was the primary ED attending.. 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 [employer] Patient: HAMLET TEIXEIRA Sex: F : 1985 Age: 33 yr Account No: [id number] Registration Date: 16:42 02/06/2019 Address: [address] [place] [address] Address: [place] [address] REGISTRATION ED Number: [id number] Marital Status: M Financial Class: PPO TRIAGE Priority: 3 - Urgent Complaint: Shortness of Breath Stated Complaint: PT PRESENTS WITH LEFT ARM PAIN AND SHORTNESS OF BREATH/ SENT BY PCP TO R/O PE Arrival Date: 02/06/2019 16:42 Triage Date: 02/06/2019 16:42 Mode of Arrival: *Privately Owned Vehicle Transfer From: * Home WC: N Language: Yi [facility] PATIENT NAME: HAMLET TEIXEIRA [address] [facility] [address]am MEDICAL REC #: [id number] [place] [address] EMERGENCY DEPARTMENT REPORT EMERGENCY DEPARTMENT PHYSICIAN Transport: [...] PROVIDERS FORREST Cole Provider Contact: 02/06/2019 17:39:07 KAC End: LORRIE AVENDANO Provider Contact: 02/06/2019 18:24:30 SERAFIN End: MD Ryan Saldana Provider Contact: 02/06/2019 20:05:12 MW End: IRINA GLEZ Provider Contact: 02/06/2019 21:32:56 ACU End: TRIAGE HISTORY ALLERGIES [facility] PATIENT NAME: HAMLET TEIXEIRA [address] [facility] [address]am MEDICAL REC #: [id number] [place] [address] EMERGENCY DEPARTMENT REPORT EMERGENCY DEPARTMENT PHYSICIAN Allergic To: No Known Allergies - 02/06/2019 16:44 KCP CURRENT MEDS Name: NUVARING VAGINAL RING - VAG 02/06/2019 19:04 SERAFIN Name: per pt 02/06/19 02/06/2019 19:04 SERAFIN Name: NAPROXEN 250MG TABLET - PO 02/06/2019 19:04 SERAFIN Freq: PRN ILLNESS Illness: *None 02/06/2019 16:44 KCP PAST SURGERY HIST Surgery: Cholecystectomy 02/06/2019 16:44 KCP PAST SOCIAL HIST Social History: Behavior age appropriate 02/06/2019 16:44 KCP Social History: Communicates without difficulty 02/06/2019 16:44 KCP Social History: Lives with family or significant other 02/06/2019 16:44 KC Social History: Alcohol - None 02/06/2019 16:44 KCP Social History: Smoker-None 02/06/2019 16:44 KC Social History: Recreational Drugs - None 02/06/2019 16:44 KCP Social History: Have you traveled in the past month? Where no 02/06/2019 16:44 KCP PAST SIDE LASTER TACK HIST Social History: Gravida2 Para 1 Ab 02/06/2019 16:44 KC IMMUNIZATIONS Immunization: Flu Vaccine-yes 02/06/2019 16:44 [facility] PATIENT NAME: HAMLET TEIXEIRA [address] [facility] [address]am MEDICAL REC #: [id number] [place] [address] EMERGENCY DEPARTMENT REPORT EMERGENCY DEPARTMENT PHYSICIAN NURSING [...] 21:51 PT TAKEN TO THE FLOOR BY TELETYPE MECHANIC 02/06/2019 21:52 ACU TREATMENT 02/06/2019 20:13 Physician Call - Dr. ASHTON called at 200702/06/2019 20:14 [facility] 02/06/2019 20:13 Physician Call - Dr. ASHTON answered at 200702/06/2019 20:14 [facility] 02/06/2019 20:59 Medication Verification - Heparin dose verified at bedside with Candice Ocampo RN 02/06/2019 21:02 SERAFIN 02/06/2019 21:16 Medication Verification - Heparin dose verified at bedside with Tasha MCDONALD 02/06/2019 21:17 BRR MEDICATIONS IV [facility] PATIENT NAME: HAMLET TEIXEIRA [address] [facility] [address]am MEDICAL REC #: [id number] [place] [address] EMERGENCY DEPARTMENT REPORT EMERGENCY DEPARTMENT PHYSICIAN IV [...] 99 Room Air 02/06/2019 19:02 SERAFIN [facility] PATIENT NAME: HAMLET TEIXEIRA [address] MEDICAL REC #: [id number] [place] [address] EMERGENCY DEPARTMENT REPORT EMERGENCY DEPARTMENT PHYSICIAN VS-Pain [...] DOSE: 15 mg IV 02/06/2019 20:46 [facility] PATIENT NAME: HAMLET TEIXEIRA [facility] [address] Pham MEDICAL REC #: [id number] [place] [address] EMERGENCY DEPARTMENT REPORT EMERGENCY DEPARTMENT PHYSICIAN N/A [...] Ryan Saldana Noted Time: 02/06/2019 20:39 SERAFIN ASSEMBLY TECHNICIAN ORDER: GFRP 02/06/2019 18:32 None Ordered: 02/06/2019 18:32 Completed Time: 02/06/2019 18:32 Results Time: 02/06/2019 18:32 ASSEMBLY TECHNICIAN ORDER: POCTROP 02/06/2019 18:22 None Ordered: 02/06/2019 18:22 Completed Time: 02/06/2019 18:22 Results Time: 02/06/2019 18:22 IV hep lock 02/06/2019 18:03 N/A Ordered: 02/06/2019 17:45 By Jenna Cole Completed Time: 02/06/2019 18:03 By Jenna Cole IV NS bolus 1L over 60 min 02/06/2019 19:01 [facility] PATIENT NAME: HAMLET TEIXEIRA [address] [facility] [address]am MEDICAL REC #: [id number] [place] [address] EMERGENCY DEPARTMENT REPORT EMERGENCY DEPARTMENT PHYSICIAN N/A [...] 18:03 ANF Results Time: 02/06/2019 18:32 [facility] PATIENT NAME: HAMLET TEIXEIRA [address] [facility] [address]am MEDICAL REC #: [id number] [place] [address] EMERGENCY DEPARTMENT REPORT EMERGENCY DEPARTMENT PHYSICIAN Duplex [...] Auto Generated Charge SIGNATURE Ryan Saldana MD [facility] RN P Jenna [facility] PATIENT NAME: HAMLET TEIXEIRA [address] [facility] [address]am MEDICAL REC #: [id number] [place] [address] EMERGENCY DEPARTMENT REPORT EMERGENCY DEPARTMENT PHYSICIAN XI GUZMÁN IRINA FISHERLOPEZ [facility] PATIENT NAME: [facility] [address] [facility]am MEDICAL REC #: [id number] [place] [address] EMERGENCY DEPARTMENT REPORT EMERGENCY DEPARTMENT PHYSICIAN Normal [facility] GFR ESTon 02-06-2019 IF AMER Greater than 60 Normal [facility] Comment on above: Order Comment: Campu s: M Performed By: #### L 500.33051, L500.61496, L500.58079 #### [facility] [address] [place] [address] IF non-AFR AMER Greater than 60 [facility] Comment on above: Order Comment: Campu s: M Performed By: #### L 500.00752, L500.30777, L500.77237 #### [facility] [address] [place] [address] HCGon 02-06-2019 HCG Qn Negative Normal NEGATIVE [facility] Comment on above: Order Comment: Campu s: M Performed By: #### L 500.20142, L500.29870, L500.04405 #### [facility] [facility] [address] [place] [id number] HP.IMS.ADMon 02-06-2019 Admission-H&P Normal [facility] HP.IMS.ADM [facility] Patient Name: HAMLET TEIXEIRA [facility] Date of : [address] [address] Unit Number: [id number] Admission-HandP Patient Status: REG ER Attending Doctor: Tiffanie ZhouEmergency Physicians Service Date: 02/06/192055 History of Present [...] her and son. She works as a [email or web address]. She does work third shift as a [...] Other Med Notes Laboratory Tests 02/06 02/06 3537 [id number] Chemistry Sodium (136 - 145 MMOL/L) 138 [...] Ashton MD Verified/Reviewed by 02/06/19 2146 Normal [facility] TROPONIN I POCon 02-06-2019 Troponin I.cardiac [Mass/Vol] 0.00 ng/mL Normal 0.0-0.06 [facility] Comment on above: Result Comment: 0.0 - 0.06 NG/ML - NON-DIAGNOSTIC (REFERENCE RANGE) 0.07 - 0.59 NG/ML - INDETERMINATE Greater than or equal to 0.6 NG/ML - INDICATIVE OF MYOCARDIAL DAMAGE VLVDon 02-06-2019 VENOUS DUPLEX REPORT Normal [facility] VLVD VASCULAR MEDSTREAMIN G REPORT Patient: HAMLET TEIXEIRA Account [id number] Ordering Phy: MR: [id number] Reason for Visit: PULMONARY EMBOLISM Date of [...] Full Report is available via link to [employer] in PCI under [facility] Lab Image Viewer. * [facility] PATIENT NAME: HAMLET TEIXEIRA [address] [facility] [address] Pham MEDICAL REC #: [id number] [place] [address] ADMIT DATE: 02/06/19 DISCHARGE DATE: VENOUS DUPLEX REPORT ATTENDING PHY: Sia Ashton MD Electronically Signed by: Rupesh Sharp MD Esign Date: 02/07/19 Normal [facility] CBC W/DIFFon 10-11-2018 BASO ABS 0.10 K/CU MM Normal 0-0.2 [facility] Comment on above: Performed By: #### L 200.13325 #### [facility] [address] [place] [address] Basophils/100 WBC (Bld) 0.8 % Normal 0-2 [facility] Comment on above: Performed By: #### L 200.48883 #### [facility] [address] [place] [address] EOS ABS 0.10 K/CU MM Normal 0-0.5 [facility] Comment on above: Performed By: #### L 200.25539 #### [facility] [address] [place] [address] Eosinophils/100 WBC (Bld) 1.3 % Normal 0-5 [facility] Comment on above: Performed By: #### L 200.11136 #### [facility] [address] [place] [address] Erythrocyte distribution width (RBC) [Ratio] 12.0 % Normal 11-14.5 [facility] Comment on above: Performed By: #### L 200.17124 #### [facility] [address] [place] [address] Hematocrit (Bld) [Volume fraction] 37.9 % Normal 35.0-47.0 [facility] Comment on above: Performed By: #### L 200.22796 #### [facility] [address] [place] [address] Hemoglobin (Bld) [Mass/Vol] 12.5 g/dL Normal 11.5-15.5 [facility] Comment on above: Performed By: #### L 200.28961 #### [facility] [address] [place] [address] IMMATR GRAN ABS 0.00 K/CU MM Normal Less than 2 [facility] Comment on above: Performed By: #### L 200.41072 #### [facility] [address] [place] [address] IMMATURE GRAN % 0.4 % Normal Less than 2 [facility] Comment on above: Performed By: #### L 200.85064 #### [facility] [address] [place] [address]# [phone] Lymphocytes (Bld) [#/Vol] 3.20 K/CU MM Normal 0.9-4.4 [facility] Comment on above: Performed By: #### L 200.02211 #### [facility] [address] [place] [address] Lymphocytes/100 WBC (Bld) 31.3 % Normal 20-40 [facility] Comment on above: Performed By: #### L 200.98571 #### [facility] [address] [place] [address] MCHC (RBC) [Mass/Vol] 33.0 g/dL Normal 32.0-36.0 [facility] Comment on above: Performed By: #### L 200.14659 #### [facility] [address] [place] [address] MCV (RBC) [Entitic vol] 90.0 fL Normal 80.0-99.0 [facility] Comment on above: Performed By: #### L 200.29370 #### [facility] [place] [address] MONO ABS 0.50 K/CU MM Normal 0.1-1.1 [facility] Comment on above: Performed By: #### L 200.27112 #### [facility] [address] [place] [address] Monocytes/100 WBC (Bld) 4.7 % Normal 2-10 [facility] Comment on above: Performed By: #### L 200.77940 #### [facility] [address] [place] [address] NEUTROPHIL ABS 6.30 K/CU MM Normal 2.0-8.3 [facility] Comment on above: Performed By: #### L 200.54509 #### [facility] [address] [place] [address] Neutrophils/100 WBC (Bld) 61.5 % Normal 45-75 [facility] Comment on above: Performed By: #### L 200.89044 #### [facility] [address] [place] [address] Nucleated RBC/100 WBC (Bld) [Ratio] 0.0 % Normal Less than 1 [facility] Comment on above: Performed By: #### L 200.26116 #### [facility] [address] [place] [address] Platelet mean volume (Bld) [Entitic vol] 9.2 fL Low 9.4-12.4 [facility] Comment on above: Performed By: #### L 200.35554 #### [facility] [address] [place], [place] [id number] Platelets (Bld) [#/Vol] 321 K/CU MM Normal 150-450 [facility] Comment on above: Performed By: #### L 200.53002 #### [facility] [address] [place] [address] RBC (Bld) [#/Vol] 4.21 M/CU MM Normal 3.90-5.30 [facility] Comment on above: Performed By: #### L 200.70736 #### [facility] [address] [place] [address] WBC (Bld) [#/Vol] 10.3 K/CUMM Normal 4.5-11.0 [facility] Comment on above: Performed By: #### L 200.04183 #### [facility] [address] [place] [address] CMPon 10-11-2018 Albumin [Mass/Vol] 3.2 g/dL Normal 3.2-5.0 [facility] Comment on above: Performed By: #### L 500.52987, L500.49942, L500.26069, L500.76512 #### [facility] [address] [place], [place] [address] Albumin/Globulin [Mass ratio] 0.9 {ratio} Normal 0.8-2.0 [facility] Comment on above: Performed By: #### L 500.98451, L500.96853, L500.14494, L500.92721 #### [facility] [address] [place] [address] ALK PHOS 54 U/L Normal 45-117 [facility] Comment on above: Performed By: #### L 500.88942, L500.36603, L500.50984, L500.61349 #### [facility] [address] [place], [place] [id number] ALT [Catalytic activity/Vol] 15 U/L Normal 13-61 [facility] Comment on above: Result Comment: RESU LTS MAY BE FALSELY DEPRESSED AFTER THE ADMINISTRATION OF SULFASALAZINE AND/OR SULFAPYRIDINE. Performed By: #### L 500.59538, L500.52052, L500.08154, L500.55185 #### [facility] [address] [id number] Anion gap [Moles/Vol] 8 mmol/L Normal 5-16 [facility] Comment on above: Performed By: #### L 500.55582, L500.86597, L500.15179, L500.51745 #### [facility] [address] [place] [address] BILI TOTAL 0.3 MG/DL Normal 0.2-1.0 [facility] Comment on above: Performed By: #### L 500.71556, L500.31737, L500.36651, L500.29856 #### [facility] [address] [place] [address] Calcium [Mass/Vol] 8.3 mg/dL Low 8.5-10.1 [facility] Comment on above: Performed By: #### L 500.93448, L500.63197, L500.92275, L500.34673 #### [facility] [address] [place] [address] Chloride [Moles/Vol] 113 mmol/L High 98-107 [facility] Comment on above: Performed By: #### L 500.22176, L500.53932, L500.24527, L500.78308 #### [facility] [place] [address] CO2 [Moles/Vol] 24 mmol/L Normal 21-32 [facility] Comment on above: Performed By: #### L 500.05514, L500.05375, L500.12036, L500.95018 #### [facility] [address] [place], [place] [address] Creatinine [Mass/Vol] 0.909 mg/dL Normal 0.510- 0.95 0 [facility] Comment on above: Result Comment: Kathy ents receiving either N-Acetylcysteine (NAC) or Metamizole prior to venipuncture, may have falsely depressed results. Performed By: #### L 500.14033, L500.76434, L500.20701, L500.15448 #### [facility] [address] [place] [address] Globulin (S) [Mass/Vol] 3.6 g/dL Normal 2.2-4.2 [facility] Comment on above: Performed By: #### L 500.54411, L500.30828, L500.51036, L500.48815 #### [facility] [address] [place] [address] Glucose [Mass/Vol] 88 mg/dL Normal 70-100 [facility] Comment on above: Result Comment: 70-1 00- Normal Fasting; 100-125 Impaired Fasting; greater than 126 on more than one result- Diabetes. ADA guidelines. Results may be falsely elevated after the administration of Sulfapyridine. Results may be falsely depressed after the administration of Sulfasalazine. Performed By: #### L 500.96595, L500.43125, L500.58080, L500.85090 #### [facility] [place] [address] Potassium [Moles/Vol] 4.6 mmol/L Normal 3.5-5.1 [facility] Comment on above: Performed By: #### L 500.19703, L500.22973, L500.57009, L500.91295 #### [facility] [place] [address] Protein [Mass/Vol] 6.8 g/dL Normal 6.0-8.5 [facility] Comment on above: Performed By: #### L 500.71237, L500.41675, L500.43531, L500.17348 #### [facility] [address] [place] [address] SGOT (AST) 8 U/L Normal 8-34 [facility] Comment on above: Result Comment: RESU LTS MAY BE FALSELY DEPRESSED AFTER THE ADMINISTRATION OF SULFASALAZINE AND/OR SULFAPYRIDINE. Performed By: #### L 500.27009, L500.86186, L500.12275, L500.94426 #### [facility] [address] [place] [address] Sodium [Moles/Vol] 145 mmol/L Normal 136-145 [facility] Comment on above: Performed By: #### L 500.76860, L500.13251, L500.60659, L500.11343 #### [facility] [address] [place] [address] Urea nitrogen [Mass/Vol] 9 mg/dL Normal 7-26 [facility] Comment on above: Performed By: #### L 500.87402, L500.96322, L500.84023, L500.95028 #### [facility] [address] [place] [address] Urea nitrogen/Creatinine [Mass ratio] 10 mg/mg Low 15-24 [facility] Comment on above: Performed By: #### L 500.77266, L500.41272, L500.70319, L500.23085 #### [facility] [address] [place], [place] [address] GFR ESTon 10-11-2018 IF AMER Greater than 60 Normal [facility] Comment on above: Performed By: #### L 500.60313, L500.70862, L500.67672, L500.96319 #### [facility] [address] [place] [address] IF non-AFR AMER Greater than 60 Normal [facility] Comment on above: Performed By: #### L 500.61959, L500.89642, L500.13090, L500.40194 #### [facility] [address] [place] [address] LIPIDon 10-11-2018 Cholesterol [Mass/Vol] 180 mg/dL Normal 0-199 [facility] Comment on above: Performed By: #### L 500.05634, L500.66538, L500.72909, L500.29787 #### [facility] [address] [place] [address] Cholesterol in HDL [Mass/Vol] 51 mg/dL Normal [place] 40 [facility] Comment on above: Result Comment: Kathy ents receiving Metamizole prior to venipuncture, may have falsely depressed results. Performed By: #### L 500.45332, L500.43230, L500.82684, L500.99430 #### [facility] [address] [place] [address] Cholesterol in LDL [Mass/Vol] 90 mg/dL Normal 0-129 [facility] Comment on above: Result Comment: ___C HOLESTEROL/HDL RATIO RISK___ CHD RISK = Total CHOL LDL HDL (CHOL/HDL) Recommended <200 <130 >35 <3.4 Borderline 200-239 130-159 3.4-4.99 High >240 >160 >5.0 Performed By: #### L 500.41062, L500.76291, L500.22120, L500.81522 #### [facility] [address] [place] [address] Triglyceride [Mass/Vol] 195 mg/dL High 30-149 [facility] Comment on above: Result Comment: Kathy ents receiving either N-Acetylcysteine (NAC) or Metamizole prior to venipuncture, may have falsely depressed results. Performed By: #### L 500.45346, L500.52150, L500.60907, L500.49982 #### [facility] [address] [place] [address] TSHon 10-11-2018 TSH Qn 1.660 UIU/ML Normal 0.358-3.74 0 [facility] Comment on above: Result Comment: 3rd generation ultra sensitive TSH Performed By: #### L 500.26667, L500.63015, L500.00684, L500.91902 #### [facility] [place] [address] HCG,Totalon 07-17-2018 HCG Qn 8938.0 m[IU]/mL Normal [facility] Comment on above: Result Comment: Male < or = 1Non- female 1- 3Gestational Age:0.2-1 Week 5 - 501-2 Weeks 50 - 5002-3 Weeks 100 - 68755-9 Weeks 500 - 042545-5 weeks 1000 - 108955-6 weeks 55627 - 100,0006-8 weeks 92790 - 200,0002-3 months 73642 - 100,000 Performed By: #### H CG ####[place] [address] Patient Summary Documentson 10-29-2017 Patient Summary Documents Normal [facility] ([place]) Vital Signs Date Time Vital Sign Value Performing Clinician Facility 05-13-2025 09:17-0400 Body temperature 98 [degF] Dr. Ortega Medrano MD Work Phone: [facility] 05-13-2025 09:17-0400 Diastolic blood pressure 63 mm[Hg] Dr. Ortega Medrano MD Work Phone: [facility] 05-13-2025 09:17-0400 Heart rate 74 /min Dr. Ortega Medrano MD Work Phone: [facility] 05-13-2025 09:17-0400 Respiratory rate 16 /min Dr. Ortega Medrano MD Work Phone: [facility] 05-13-2025 09:17-0400 SaO2% (BldA) [Mass fraction] 98 % Dr. Ortega Medrano MD Work Phone: [facility] 05-13-2025 09:17-0400 Systolic blood pressure 112 mm[Hg] Dr. Ortega Medrano MD Work Phone: [facility] 05-12-2025 16:47-0400 Body height 160.[address] Ortega Medrano MD Work Phone: [facility] 05-12-2025 16:47-0400 Body mass index (BMI) [Ratio] 40.4 kg/m2 Dr. Ortega Medrano MD Work Phone: [facility] 05-12-2025 16:47-0400 Body weight 103.[address] Ortega Medrano MD Work Phone: [facility] 05-12-2025 16:00-0400 Inhaled oxygen flow rate 3 L/min Dr. Oretga Medrano MD Work Phone: [facility] 04-17-2025 09:28-0400 Body height 160.[address] Ortega Medrano MD Work Phone: [facility] 04-17-2025 09:28-0400 Body mass index (BMI) [Ratio] 40.2 kg/m2 Dr. Ortega Medrano MD Work Phone: [facility] 04-17-2025 09:28-0400 Body temperature 98.5 [degF] Dr. Ortega Medrano MD Work Phone: [facility] 04-17-2025 09:28-0400 Body weight 103.[address] Ortega Medrano MD Work Phone: [facility] 04-17-2025 09:28-0400 Diastolic blood pressure 87 mm[Hg] Dr. Ortega Medrano MD Work Phone: [facility] 04-17-2025 09:28-0400 Heart rate 63 /min Dr. Ortega Medrano MD Work Phone: [facility] 04-17-2025 09:28-0400 Respiratory rate 18 /min Dr. Ortega Medrano MD Work Phone: [facility] 04-17-2025 09:28-0400 SaO2% (BldA) [Mass fraction] 98 % Dr. Ortega Medrano MD Work Phone: [facility] 04-17-2025 09:28-0400 Systolic blood pressure 136 mm[Hg] Dr. Ortega Medrano MD Work Phone: [facility] 03-09-2025 14:23-0400 Body height 160 cm Baltazar Courtney MD Work Phone: [facility] 03-09-2025 14:23-0400 Body mass index (BMI) [Ratio] 40.57 kg/m2 Baltazar Courtney MD Work Phone: [facility] 03-09-2025 14:23-0400 Body temperature 97.11 [degF] Baltazar Courtney MD Work Phone: [facility] 03-09-2025 14:23-0400 Body weight 103.87 kg Baltazar Courtney MD Work Phone: [facility] 03-09-2025 14:23-0400 Diastolic blood pressure 82 mm[Hg] Baltazar Courtney MD Work Phone: [facility] Comment on above: Dr. Courtney notified of blood pressure 03-09-2025 14:23-0400 Heart rate 96 /min Baltazar Courtney MD Work Phone: [facility] 03-09-2025 14:23-0400 Respiratory rate 14 /min Baltazar Courtney MD Work Phone: [facility] 03-09-2025 14:23-0400 SaO2% (BldA) [Mass fraction] 98 % Baltazar Courtney MD Work Phone: [facility] 03-09-2025 14:23-0400 Systolic blood pressure 148 mm[Hg] Baltazar Courtney MD Work Phone: [facility] Comment on above: Dr. Courtney notified of blood pressure 07-30-2024 15:18-0500 Body mass index (BMI) [Ratio] 38.51 kg/m2 Yordy Andersen MD Work Phone: [facility] 07-30-2024 15:18-0500 Body temperature 98.6 [degF] Yordy Andersen MD Work Phone: [facility] 07-30-2024 15:18-0500 Body weight 98.6 kg Yordy Andersen MD Work Phone: [facility] 07-30-2024 15:18-0500 Diastolic blood pressure 80 mm[Hg] Yordy Andersen MD Work Phone: [facility] 07-30-2024 15:18-0500 Heart rate 80 /min Yordy Andersen MD Work Phone: [facility] 07-30-2024 15:18-0500 Respiratory rate 21 /min Yordy Andersen MD Work Phone: [facility] 07-30-2024 15:18-0500 SaO2% (BldA) [Mass fraction] 98 % Yordy Andersen MD Work Phone: [facility] 07-30-2024 15:18-0500 Systolic blood pressure 122 mm[Hg] Yordy Andersen MD Work Phone: [facility] 07-29-2024 15:01-0500 Body height 160 cm Gómez Younger MD Work Phone: [facility] 07-29-2024 15:01-0500 Body mass index (BMI) [Ratio] 37.98 kg/m2 Gómez Younger MD Work Phone: [facility] 07-29-2024 15:01-0500 Body temperature 98.01 [degF] Gómez Younger MD Work Phone: [facility] 07-29-2024 15:01-0500 Body weight 97.25 kg Gómez Younger MD Work Phone: [facility] 07-29-2024 15:01-0500 Diastolic blood pressure 78 mm[Hg] Gómez Younger MD Work Phone: [facility] 07-29-2024 15:01-0500 Systolic blood pressure 118 mm[Hg] Gómez Younger MD Work Phone: [facility] 07-07-2024 14:13-0500 Body height 160 cm Gómez Younger MD Work Phone: [facility] 07-07-2024 14:13-0500 Body mass index (BMI) [Ratio] 36.56 kg/m2 Gómez Younger MD Work Phone: [facility] 07-07-2024 14:13-0500 Body temperature 98.71 [degF] Gómez Younger MD Work Phone: [facility] 07-07-2024 14:13-0500 Body weight 93.62 kg Gómez Younger MD Work Phone: [facility] 07-07-2024 14:13-0500 Diastolic blood pressure 82 mm[Hg] Gómez Younger MD Work Phone: [facility] 07-07-2024 14:13-0500 Systolic blood pressure 118 mm[Hg] Gómez Younger MD Work Phone: [facility] 07-25-2023 09:03-0500 Body height 160.[address] Sommer Flynn Work Phone: [facility] 07-25-2023 08:55-0500 Body mass index (BMI) [Ratio] 39.2 kg/m2 Dr. Sommer Flynn Work Phone: [facility] 07-25-2023 08:55-0500 Body weight 100.[address] Sommer Flynn Work Phone: [facility] 07-25-2023 08:55-0500 Diastolic blood pressure 82 mm[Hg] Dr. Sommer Flynn Work Phone: [facility] 07-25-2023 08:55-0500 Systolic blood pressure 128 mm[Hg] Dr. Sommer Flynn Work Phone: [facility] Encounters Encounter Date Encounter Type Care Provider Facility Start: 06-15-2025 End: 06-15-2025 ambulatory [facility] Facility:[facility] Start: 05-22-2025 End: 05-22-[address] Gómez Casiano MD -[facility] Work Phone: Start: 05-22-2025 End: 05-22-[address] Ortega Medrano MD Work Phone: -[facility] Start: 05-13-2025 Non-patient / Non-visit Dr. Gómez Casiano MD -[facility] Start: 05-12-2025 End: 05-13-2025 ambulatory Gómez Casiano Facility:[facility] Start: 05-12-2025 End: 05-13-2025 Evaluation and management of inpatient Dr. Gómez Casiano MD [facility] Work Phone: Start: 05-12-2025 End: 05-13-[address] Ortega Medrano MD Work Phone: [facility] Start: 05-12-2025 ambulatory Gómez Casiano Facility: [facility] Start: 05-12-2025 Non-patient / Non-visit Dr. Gómez Casiano MD -[facility] Start: 04-23-2025 End: 04-23-[address] Ortega Medrano MD Work Phone: -Ultrasound [facility] Start: 04-23-2025 End: 04-23-[address] Gómez Casiano MD -Ultrasound [facility] Work Phone: Start: 04-23-2025 End: 04-23-2025 ambulatory Gómez Casiano Facility:[facility] Start: 04-17-2025 End: 04-17-[address] Gómez Casiano MD -[facility] Work Phone: Start: 04-17-2025 End: 04-17-[address] Ortega Medrano MD Work Phone: -[facility] Start: 03-16-2025 End: 03-16-2025 Patient encounter procedure Baltazar Courtney MD Work Phone: General Surgery Comment on above: Multinodular goiter (Primary Dx) Start: 03-16-2025 End: 03-16-2025 ambulatory ORTEGA MEDRANO Facility:[facility] Start: 03-09-2025 End: 03-09-2025 Patient encounter procedure Baltazar Courtney MD Work Phone: General Surgery Comment on above: Multinodular goiter (Primary Dx) Start: 03-09-2025 End: 03-09-2025 ambulatory BALTAZAR COURTNEY Facility:[facility] Start: 03-04-2025 End: 03-04-2025 Chart abstracting Baltazar Courtney MD Work Phone: General Surgery Start: 02-12-2025 End: 02-12-[address] Sommer Flynn MD Work Phone: [facility] Work Phone: Start: 02-12-2025 End: 02-12-[address] Ortega Medrano MD -Ultrasound [facility] Work Phone: Start: 02-12-2025 End: 02-12-2025 ambulatory Ortega Medrano Facility:[facility] Start: 02-05-2025 End: 02-05-[address] Sommer Flynn MD Work Phone: [facility] Work Phone: Start: 02-05-2025 End: 02-05-[address] Ortega Medrano MD -Laboratory [facility] Start: 02-05-2025 End: 02-05-2025 ambulatory Ortega Medrano Facility:[facility] Start: 01-15-2025 Encounter for genera l adult medical examination without abnormal findings Sommerdwaine Flynn [facility] Start: 01-15-2025 ambulatory Sommer Flynn Facilit y:[facility] Start: 11-15-2024 Registered Referred HEALTH RIS K ASSESSMENT -Laboratory Work Phone: Start: 11-15-2024 ambulatory Health Risk Assessment Facility:[facility] Start: 10-25-2024 ambulatory Health Risk Assessment Facility:[facility] Start: 10-25-2024 Registered Referred HEALTH RIS K ASSESSMENT -Employee Health Start: 10-23-2024 Registered Referred HEALTH RIS K ASSESSMENT -Employee Health Start: 10-23-2024 ambulatory Health Risk Assessment Facility:[facility] Start: 07-30-2024 End: 07-30-2024 ambulatory SOMMER FLYNN Facility:[facility] Start: 07-30-2024 End: 07-30-2024 Office outpatient new 30 minutes Yordy Andersen MD Work Phone: [facility] Comment on above: Acute non-recurrent sinusitis, unspecified location (Primary Dx) Start: 07-29-2024 End: 07-29-2024 ambulatory GÓMEZ YOUNGER [facility] Start: 07-29-2024 End: 07-29-2024 Postop follow up visit related to original px Gómez Younger MD Work Phone: [facility] [place] Comment on above: Perianal abscess (Pr imary Dx) Start: 07-28-2024 Encounter for gynecological examination (general) (routine) without abnormal findings Lali Gallagher [facility] Start: 07-28-2024 End: 07-28-2024 ambulatory [facility] Facility:[facility] Start: 07-28-2024 End: 07-28-2024 ambulatory [facility] Facility:[facility] Start: 07-07-2024 End: 07-07-2024 Patient encounter procedure Gómez Younger MD Work Phone: [facility] Comment on above: Perianal abscess (Pr imary Dx) Start: 07-07-2024 End: 07-07-2024 ambulatory GÓMEZ YOUNGER [facility] Start: 09-19-2023 End: 09-19-[address] Sommer Flynn Work Phone: [facility] Work Phone: Start: 09-19-2023 End: 09-19-[address] Sommer Flynn Work Phone: [facility], [facility] Work Phone: Start: 07-25-2023 End: 07-25-[address] Sommer Flynn Work Phone: [facility] Work Phone: Start: 07-17-2018 End: 07-18-2018 Patient encounter procedure KAREN Colon [facility] Start: 10-29-2017 End: 10-29-2017 Emergency department patient visit [facility] Facility:A Procedures Date Procedure Procedure Detail Performing [...] limit of quantitation is 0.1ng/mLThyroglobulin measured by [employer] Start: 02-05-[address] Isaiah Flynn MD Work Phone: Comment on above: Thyroglobulin Antibody measured by [employer] Marketing TechnologiesMethodologyIt should be noted that the presence of thyroglobulinantibodies may not be pathogenic nor diagnostic, especiallyat very low levels. The assay manager data center has found thatfour percent of individuals without [...] the productionof interferon gamma. Chemiluminescence immunoassaymethodologyPerformed at: [facility] [id number] Director: Rodrigo Edmondson PhD, Phone: [phone] Start: 09-19-[address] Sommer Flynn [...] and some hyperplasia but was overall ruled benign. It is unclear to me how she had a prior FNA biopsy given a [place] 5 diagnosis and our final pathology appears [...] for Adults (1 - 1-dose 75+ series) [facility] Start: 2036 Zoster Vaccines (1 of 2) Zoste r Vaccines (1 of 2) [facility] Start: 03-24-2030 DTaP/Tdap/Td Vaccine s (5 - Td or Tdap) DTaP/Tdap/Td Vaccines (5 - Td or Tdap) [facility] Start: 03-24-2030 Urine microalbumin profile [facility] Start: 05-13-2025 Patient discharge [facility] Start: 05-12-2025 Application of intermittent pneumatic compression device [facility] Start: 05-12-2025 Following clinical pathway protocol [facility] Start: 05-12-2025 Application of ice collar, cap or bag [facility] Start: 05-12-2025 Elevation of head of bed [facility] Start: 05-12-2025 Admission procedure [facility] Start: 05-12-2025 Anes esoph thyrd lar ynx trach & lymph neck 1yr ANESTH NECK ORGAN 1YR/> [facility] Start: 05-12-2025 Thyroidectomy total/complete REMOVAL OF THYROID [facility] Start: 04-27-2025 Influenza vaccination Influenza Vacc ine (#1) [facility] Start: 03-30-2025 End: 03-30-2025 Patient encounter procedure 03/30/2025 2:45 PM EDT Office Visit General Surgery [address] [place], [place] [id number] Baltazar Courtney MD [address] [place], [place] [id number] 2 wk f/u-FNA results General Surgery Comment on above: 2 wk f/u-FNA results Start: 03-16-2025 End: 03-16-2025 Patient encounter procedure 03/16/2025 1:30 PM EDT Office Visit General Surgery [address] [place] [address] Baltazar Courtney MD [address] [place] [address] PROCEDURE: FNA Right thyroid x 2. Consent signed. [facility] General Surgery Comment on above: PROCEDURE: FNA Right thyroid x 2. Consent signed. [facility] Start: 03-09-2025 End: 03-09-2025 Patient encounter procedure 03/09/2025 2:45 PM EDT Office Visit General Surgery [address] [place] [address] Baltazar Courtney MD [address] [place] [address] CONSULT: THYROID NODULE / REFERRAL SCANNED. Images available. [facility] General Surgery Comment on above: CONSULT: THYROID NOD ULE / REFERRAL SCANNED. Images available. [facility] Start: 07-29-2024 End: 07-29-2024 Patient encounter procedure 07/29/2024 3:00 PM EST Office Visit [facility] [place] [address] [place] [id number] Gómez Younger MD [address] [facility] [address] [place] [address] [facility] [place] Start: 04-27-2024 COVID-19 Vaccine ( season) COVID-19 Vaccine ( season) [facility] Start: 04-23-2017 Screening for malign ant neoplasm of cervix Cervical Cancer Screening [facility] Start: 2016 Screening for malign ant neoplasm of cervix [facility] Start: 2007 Screening for malign ant neoplasm of cervix Pap Smear [facility] Start: 2004 Anxiety Screening Anxiety Screening [facility] Start: 2004 Depression Screening Depression Scre ening [facility] Start: 2004 Hepatitis C screening Hepatitis C Sc reening [facility] Start: 1999 Varicella vaccination Varicell a Vaccines (1 of 2 - 13+ 2-dose series) [facility] Start: 1998 Depression Monitoring Depression Mon itoring [facility] Start: 1987 MMR Vaccines (1 of 1 - Standard series) MMR Vaccines (1 of 1 - Standard series) [facility] Start: 1986 HIV screening HIV Screening [facility] Start: 1986 Lipid panel Lipid Panel [facility] CYTOLOGY NON-CITY MAGISTRATE [facility] Work Phone: Comment on above: Ordered: 03/16/2025 T4 free measurement [facility] Thyroid stimulating hormone measurement [facility] Triiodothyronine, fr ee measurement [facility] Immunizations Immunization Date Immunization Notes Care Provider [facility] 06-17-2024 Influenza, injectabl e, Madin Emi Canine Kidney, preservative free, quadrivalent Dr. Sommer Flynn MD Work Phone: [facility] 06-17-2024 influenza virus vaccine, unspecified formulation Baltazar Courtney MD Work Phone: [facility] 07-12-2021 influenza, injectabl e, quadrivalent, preservative free Dr. Sommer Flynn Work Phone: [facility] 10-12-2020 Covid (Moderna) Dr. Sommer Flynn Work Phone: [facility] 09-14-2020 Covid (Moderna) Dr. Sommer Flynn Work Phone: [facility] 05-25-2020 influenza, injectabl e, quadrivalent, preservative free Dr. Sommer Flynn Work Phone: [facility] 03-24-2020 tetanus toxoid, redu janeen diphtheria toxoid, and acellular pertussis vaccine, adsorbed Dr. Sommer Flynn Work Phone: [facility] 07-09-2019 influenza, injectabl e, quadrivalent, preservative free Dr. Sommer Flynn Work Phone: [facility] 10-22-2014 tetanus toxoid, redu janeen diphtheria toxoid, and acellular pertussis vaccine, adsorbed Yordy Andersen MD Work Phone: [facility] 05-28-2014 hepatitis B vaccine, adult dosage Yordy Andersen MD Work Phone: [facility] 05-28-2014 influenza, injectabl e, quadrivalent, preservative free Yordy Andersen MD Work Phone: [facility] 11-27-2013 hepatitis B vaccine, adult dosage Yordy Andersen MD Work Phone: [facility] 10-27-2013 hepatitis B vaccine, adult dosage Yordy Andersen MD Work Phone: [facility] Work Phone: 10-27-2013 tetanus toxoid, redu janeen diphtheria toxoid, and acellular pertussis vaccine, adsorbed Yordy Andersen MD Work Phone: [facility] Payers Date Payer Category Payer Private Health Insurance [facility] [id number] 2024 Unknown [id number] 2024 Self-pay [id number] 2024 Commercial Managed C are - HMO [id number] 2024 Unknown [id number] 2024 Unknown [id number] 2015 Private Health Insurance 11 Private Health Insurance [id number] Unknown [facility] MHS DO NOT USE 22 [id number] Unknown [id number] 62 Unknown [id number] 62 Unknown [id number] 2.16.840.1.635136.3.579.2.4 62 Unknown [id number] 2.16.840.1.346471.3.579.2.4 62 Unknown [id number] 2.16.840.1.428940.3.579.2.4 62 Unknown [id number] 2.16.840.1.716234.3.579.2.4 62 Unknown [id number] 2.16.840.1.355503.3.579.2.4 62 Unknown [id number] 2.16.840.1.380528.3.579.2.4 62 Unknown [id number] 2.16.840.1.674851.3.579.2.4 62 Unknown [id number] 2.16.840.1.239445.3.579.2.4 62 Unknown [id number] 2.16.840.1.473565.3.579.2.4 62 Unknown [id number] 2.16.840.1.947135.3.579.2.4 62 Unknown [id number] 2.16.840.1.777284.3.579.2.4 62 Unknown [id number] 2.16.840.1.812790.3.579.2.4 62 Unknown [id number] 2.16.840.1.616657.3.579.2.4 62 Social History Date Type Detail Facility Start: 07-25-2023 Tobacco smoking stat us NEIS Unknown if ever smoked [facility] Start: 03-18-2019 None [facility] Start: 03-18-2019 Spouse/ Signif icant Other [facility] Start: 1985 Sex Assigned At Female [facility] Start: 07-07-2024 End: 05-06-2025 Tobacco smoking status NHIS Never smoked tobacco [facility] Start: 04-23-2014 End: 07-07-2024 Tobacco use and exposure Smokeless tobacco non-user [facility] Start: 07-07-2024 End: 03-09-2025 Alcoholic beverage intake Current drinker of alcohol (finding) [facility] Start: 07-07-2024 End: 03-09-2025 History of Social function [facility] Start: 07-07-2024 End: 03-09-2025 Tobacco use panel [facility] Start: 1985 Sex assigned at Not on file [facility] Start: 04-28-2022 Sex Female (finding) [facility] Start: 07-30-2024 End: 03-04-2025 Alcoholic beverage intake Current non-drinker of alcohol (finding) [facility] National Score (1-100), lower number is lower risk 71 [facility] Start: 03-09-2025 Alcohol Comment Socially- meg mated once monthly [facility] Medical Equipment Procedure Code Equipment Code Equipment Original Text Equipment Identifier Dates Thyroidectomy Plant polysaccha ride haemostatic agent, bioabsorbable [id number] FDA Start: 05-12-2025 Thyroidectomy Ligation clip, metallic ( )[id number] FDA Start: 05-12-2025 Goals Date Patient Goal Desired Activity /State Functional Status Date Assessment Result Facility 05-13-2025 Functional status Ambulates [facility] Work Phone: 12-17-2014 Are you deaf, or do you have serious difficulty hearing No 12/17/2014 9:56 AM EDArcelia Delatorre Ma Leighann No [facility] 12-17-2014 Are you blind, or do you have serious difficulty seeing, even when wearing glasses No 12/17/2014 9:56 AM EDLeighann Tello Ma [facility] 12-17-2014 Do you have serious difficulty walking or climbing stairs No 12/17/2014 9:56 AM EDLeighann Tello Ma [facility] 12-17-2014 Do you have difficul ty dressing or bathing No 12/17/2014 9:56 AM EDLeighann Tello Ma Jennifer [facility] 12-17-2014 Because of a physica l, mental, or emotional condition, do you have difficulty doing errands alone such as visiting a physician's office or shopping No 12/17/2014 9:56 AM SANDRA Delatorre MaLeighann [facility] Mental Status Date Assessment Result Facility 05-13-2025 Cognitive function Level Of Cons ciousness Awake [facility] Work Phone: 05-13-2025 Cognitive function Voice/Name [facility] Work Phone: 12-17-2014 Because of a physica l, mental, or emotional condition, do you have serious difficulty concentrating, remembering, or making decisions No 12/17/2014 9:56 AM EDArcelia Delatorre MaLeighann [facility] Clinical Notes 07-07-2024 to 05-22-2025 Note Date & Type Note Facility 05-22-2025 Progress note [facility] 05-13-2025 Discharge summary [facility] 05-13-2025 Discharge summary [facility] 05-13-2025 Procedure note [facility] 05-13-2025 Discharge summary Note Date/Time May 13, 2025 11:33am [facility] Medical Records Department [address] [place] [address] Discharge Summary 05/13/25 0759 MR#: [id number] Acct: [id number] Name: HAMLET TEIXEIRA Rep # :[id number] : 1985 39 From: Gómez Quick PCP: Dr. Ortega Medrano MD Status:[place] Location: [facility] [id number] Providers Date of Admission: 05/12/25 Primary Care [...] she returns home. Will also advance to [facility]. Discussed outpatient wound care and follow-up instructions. Patient denies any further questions. Provided the above implemented care plan items proceed without complication will plan for discharge later today. Gómez Casiano MD General Surgery Endocrine Surgery Pager: [facility] [address] [place] [address], [address] [place] [address] Office: [phone] Medications at Discharge Home Medications duloxetine 60 [...] Self Care Charges/Coding Visit Charges Inpatient E&M: 96718 Disch Hosp 05/13/25 1133 <Electronically signed by Gómez Casiano MD> Cosigner Signature (if applicable): CC: Dr. Ortega Medrano MD; Dr. Gómez Casiano MD~ Signed [facility] Work Phone: 1(426) 308-598309-17-2025 Discharge summary Author Gómez Casiano [facility] Note Date/Time May 13, 2025 11:32am [facility] Medical Records Department [address] [place] [address] Instructions for Home/Discharge Instructions 05/13/25 0755 MR#: [id number] Acct: [id number] Name: HAMLET TEIXEIRA Rep # :[id number] : 1985 39 From: Gómez Quick PCP: [...] CC: Dr. Ortega Medrano MD ~ Signed [facility] Work Phone: 1(196) 422-700809-17-2025 Progress note Author Gómez Casiano [facility] Note Date/Time May 13, 2025 7:45am [facility] Medical Records Department [address] [place] [address] Progress Note - Surgery 05/13/25 0742 MR#: [id number] Acct: [id number] Name: HAMLET TEIXEIRA Rep # :[id number] : 1985 39 From: Gómez Quikc PCP: Dr. Ortega Medrano MD Status:JESUS PLATA Location: UT3 [id number] Subjective Subjective Patient doing well this morning. [...] she returns home. Will also advance to [facility]. Discussed outpatient wound care and follow-up instructions. Patient denies any further questions. Provided the above implemented care plan items proceed without complication will plan for discharge later today. Gómez Casiano MD General Surgery Endocrine Surgery Pager: [facility] [address] [place] [address], [address] [place] [address] Office: [phone] Charges/Coding Visit Charges Inpatient E&M: 45834 Subs Hosp L1 05/13/25 0745 <Electronically signed by Gómez Casiano MD> Cosigner Signature (if applicable): CC: ~ Signed [facility] Work Phone: 1(635) 118-585609-17-2025 [facility] Medical Records Department [address] [place] [address] Discharge Summary 05/13/25 0759 MR#: [id number] Acct: [id number] Name: HAMLET TEIXEIRA Rep #: [id number] : 1985 39 From: Gómez Casiano MD PCP: Dr. Ortega Medrano MD Status:ADM BONI Location: [place] [address] Providers Date of Admission: 05/12/25 Primary Care [...] Casiano MD General Surgery Endocrine Surgery Pager: [facility] [address] [place] [address], [facility], [address] [place] [address] Office: [phone] Medications at Discharge Home Medications duloxetine 60 [...] [Vitamin D3] 5 (more content not included)... [facility]09-17-2025 Progress note [facility] Medical Records Department [address] [place] [address] Progress Note - Surgery 05/13/25 0742 MR#: [id number] Acct: [id number] Name: HAMLET TEIXEIRA Rep # :[id number] : 1985 39 From: Gómez Quick PCP: Dr. Ortega Medrano MD Status:AD [facility] Location: [place] [address] Subjective Subjective Patient doing well this morning. [...] Casiano MD General Surgery Endocrine Surgery Pager: [facility] [address] [place] [address], [address] [place] [address] Office: [phone] Charges/Coding Visit Charges Inpatient E&M: 86219 Subs Hosp L1 05/13/25 0745 Cosigner Signature (if applicable): CC: ~ Signed [facility]09-16-2025 Consult note Author Leighton Copeland [facility] Note Date/Time May 12, 2025 5:21pm [facility] Medical Records Department [address] [place] [address] Anesthesia Postop Eval II 05/12/25 1709 MR#: [id number] Acct: [id number] Name: HAMLET TEIXEIRA Rep # :[id number] : 1985 39 From: Leighton Copeland MD PCP: Dr. Ortega Medrano MD Status:AD M BONI Y Race: C Location: [place] [address] Anesthesia Postop Eval I Sum Postop Eval Completion status Anesthesia document: Postop Eval 1 completed: Yes Anesthesia Postop Eval I Summary Anesthesia Postop Eval I Summary: Anesthesia Postop Eval I: Assessment Summary Airway patent Yes 05/12/25 15:10 ELECTRONIC EQUIPMENT SET UP OPERATOR.GDOTT Spontaneous unlabored Yes 05/12/25 15:10 ELECTRONIC EQUIPMENT SET UP OPERATOR.GDOTT respirations Mental status Awake,Calm 05/12/25 15:10 ELECTRONIC EQUIPMENT SET UP OPERATOR.GDOTT nausea No 05/12/25 15:10 ELECTRONIC EQUIPMENT SET UP OPERATOR.GDOTT Vomiting No 05/12/25 15:10 ELECTRONIC EQUIPMENT SET UP OPERATOR.GDOTT Anesthesia Postop Eval I: Fluid Summary Crystalloid volume administer 1,400 05/12/25 15:10 ELECTRONIC EQUIPMENT SET UP OPERATOR.GDOTT (ml) Colloids volume administered ( ml) Blood Product volume administered (ml) Total IV fluid infused 1,400 05/12/25 15:10 ELECTRONIC EQUIPMENT SET UP OPERATOR.GDOTT Anesthesia Postop Eval I: Summary Notes Anesthesia Complication No 05/12/25 15:10 ELECTRONIC EQUIPMENT SET UP OPERATOR.GDOTT Anesthesia Complication Comment: Post-operative progress note Anesthesia: [...] MD Cosigner Signature: Date CC: ~ Signed [facility] Work Phone: 1(639) 526-674109-16-2025 Consult note [facility] Medical Records Department [address] [place] [address] Anesthesia Postop Eval II 05/12/25 1709 MR#: [id number] Acct: [id number] Name: HAMLET TEIXEIRA Rep # :[id number] : 1985 39 From: Leighton Copeland MD PCP: Dr. Ortega Medrano MD Status:AD M BONI Y Race: C Location: [place] [address] Anesthesia Postop Eval I Sum Postop Eval Completion status Anesthesia document: Postop Eval 1 completed: Yes Anesthesia Postop Eval I Summary Anesthesia Postop Eval I Summary: Anesthesia Postop Eval I: Assessment Summary Airway patent Yes 05/12/25 15:10 ELECTRONIC EQUIPMENT SET UP OPERATOR.GDOTT Spontaneous unlabored Yes 05/12/25 15:10 ELECTRONIC EQUIPMENT SET UP OPERATOR.GDOTT respirations Mental status Awake,Calm 05/12/25 15:10 ELECTRONIC EQUIPMENT SET UP OPERATOR.GDOTT nausea No 05/12/25 15:10 ELECTRONIC EQUIPMENT SET UP OPERATOR.GDOTT Vomiting No 05/12/25 15:10 ELECTRONIC EQUIPMENT SET UP OPERATOR.GDOTT Anesthesia Postop Eval I: Fluid Summary Crystalloid volume administer 1,400 05/12/25 15:10 ELECTRONIC EQUIPMENT SET UP OPERATOR.GDOTT (ml) Colloids volume administered ( ml) Blood Product volume administered (ml) Total IV fluid infused 1,400 05/12/25 15:10 ELECTRONIC EQUIPMENT SET UP OPERATOR.GDOTT Anesthesia Postop Eval I: Summary Notes Anesthesia Complication No 05/12/25 15:10 ELECTRONIC EQUIPMENT SET UP OPERATOR.GDOTT Anesthesia Complication Comment: Post-operative progress note Anesthesia: [...] 05/12/25 1721 lauren SANTOS> Date _ Leighton Copeland MD Cosigner Signature: Date CC: ~ Signed [facility]09-16-2025 Consult note Author Estella Henry [facility] Note Date/Time May 12, 2025 3:10pm [facility] Medical Records Department [address] [place] [address] Anesthesia Postop Eval I 05/12/25 1508 MR#: [id number] Acct: [id number] Name: HAMLET TEIXEIRA Rep # :[id number] : 1985 39 From: Estella MONTANO PCP: Dr. Ortega Medrano MD Status: G [facility] Y Race: C Location: [place] [address] Anesthesia: Postop Eval I Current Vital Signs [...] Postop Eval 1 completed: Yes 05/12/25 1510 <Electronically signed by Estella Henry CRNA> Date _ Estella Yaoignbart Signature: Date CC: ~ Signed [facility] Work Phone: 1(506) 243-680409-16-2025 Consult note [facility] Medical Records Department [address] [place] [address] Anesthesia Postop Eval I 05/12/25 1508 MR#: [id number] Acct: [id number] Name: HAMLET TEIXEIRA Rep # :[id number] : 1985 39 From: Estella MONTANO PCP: Dr. Ortega Medrano MD Status:RE G SDC Y Race: C Location: [place] [address] Anesthesia: Postop Eval I Current Vital Signs [...] Postop Eval 1 completed: Yes 05/12/25 1510 ELECTRONIC EQUIPMENT SET UP OPERATOR> Date _ Estella Henry ELECTRONIC EQUIPMENT SET UP OPERATOR Cosigner Signature: Date CC: ~ Signed [facility]09-16-2025 History and physical note Author Gómez Casiano [facility] Note Date/Time May 12, 2025 11:00am [facility] Medical Records Department [address] [place] [address] History & Physical Exam 05/12/25 1058 MR#: [id number] Acct: [id number] Name: HAMLET TEIXEIRA Rep # :[id number] : 1985 39 From: Gómez Quick PCP: Dr. Ortega Medrano MD Status:RE G [facility] Location: [place] [address] History and Physical Date of Admission: 05/12/25 Date of Service: 04/17/25 MR#: [id number] Acct: [id number] Name: HAMLET TEIXEIRA Rep #: [id number] : 1985 Provider: Dr. 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 She underwent biopsy of a right superior and right inferior nodule with Tustin 5 and 3 ratings, respectively. The latter [...] second nodule was also biopsied with a atypical result, however, reflex Afirma testing showed this to be benign. Therefore, it would appear patient has a 2.2 cm Tustin 5 nodule suspicious forunifocal PTC. I held a lengthy conversation today with Mrs. Teixeira regarding her surgical options. I suggested that [place] thyroid Association would generally recommend thyroid lobectomy [...] should be able aline managed here in [place]. Lastly, I described the implications for risk [...] Medrano MD; Dr. Gómez Casiano MD~ Signed [facility] Work Phone: 1(253) 925-300909-16-2025 Consult note Author Leighton Copeland [facility] Note Date/Time May 12, 2025 10:32am [facility] Medical Records Department [address] [place] [address] Pre-Anesthesia Evaluation 05/12/25 1018 MR#: [id number] Acct: [id number] Name: HAMLET TEIXEIRA Rep # :[id number] : 1985 39 From: Leighton Copeland MD PCP: Dr. Ortega Medrano MD Status:RE G [facility] Y Race: C Location: [place] [address] ASA Classification* ASA Classification ASA Classification: 2 [...] lab: CBC WBC 11.0 K/mm3 (4.4-11.0) 02/05/25 12:11 02/05/25 RBC 4.31 M/mm3 (4.2-5.4) 02/05/25 12:02/05/25 Hgb 13.0 g/dL (12.0-15.0) 02/05/25 12:11 02/05/25 Hct 39.8 % (37-47) 02/05/25 12:11 02/05/25 Plt Count 382 K/mm3 (150-450) 02/05/25 12:11 [...] 12.9 SECONDS (11.7-14.9) 04/02/20 11:05 HCG, Quant 37569 mIU/mL (1-3) H 10/27/19 15:35 10/27/19 Pre-Assessment Diagnosis/Proposed Procedure Planned Operative Procedure(s): TOTAL THYROIDECTOMY Anesthesia History Anesthesia History - territory development manager: Anesthesia History - territory development manager Hx Hospitalization No 05/06/25 10:07 Any Problems [...] take am of surgery PONV PONV - territory development manager: PONV - territory development manager Female Yes 05/06/25 10:07 HX of Motion [...] 05/12/25 09:53 Respiratory Assessment Respiratory Assessment - territory development manager: Respiratory Tract Infection Hx - territory development manager Hx Respiratory Tract Infection No 05/06/25 10:07 STOP Sleep Apnea STOP Sleep Apnea - territory development manager: STOP Sleep Apnea - territory development manager Hx Hypertension No 05/06/25 10:07 Hx Sleep [...] Tobacco Use History Tobacco Use History - territory development manager: Tobacco Use History - territory development manager Tobacco Use Smoking Status Never smoker 05/06/25 10:07 Hx Tobacco Use No 05/06/25 10:07 Years Smoking Packs Smoked per Day Smoking Cessation Date was within the last 15 years Hx Smoking Cessation Date Hx Smoking Cessation Counseling Hematologic Medial History Hematologic Hx - territory development manager: 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 Hx of Blood Transfusion No 05/06/25 10:07 [...] confused, unrespo /Reproduction History /Reproductive History - territory development manager: /Reproductive Hx- territory development manager Hx Now No 05/06/25 10:07 Gestational Age [...] current occupational status: employed 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 Ortega Medrano MD Status:[facility] Location: [place] [address] History and Physical Date of Admission: 05/12/25 Date of Service: 04/17/25 MR#: [id number] Acct: [id number] Name: HAMLET TEIXEIRA Rep #: [id number] : 1985 Provider: Dr. 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 She underwent biopsy of a right superior and right inferior nodule with Tustin 5 and 3 ratings, respectively. The latter [...] second nodule was also biopsied with a atypical result, however, reflex Afirma testing showed this to be benign. Therefore, it would appear patient has a 2.2 cm Tustin 5 nodule suspicious forunifocal PTC. I held a lengthy conversation today with regarding her surgical options. I suggested that [place] thyroid Association would generally recommend thyroid lobectomy [...] should be able aline managed here in [place]. Lastly, I described the implications for risk [...] Medrano MD; Dr. Gómez Casiano MD~ Signed [facility]09-16-2025 [facility] Medical Records Department [address] [place] [address] History Physical Exam 05/12/25 1058 MR#: [id number] Acct: [id number] Name: HAMLET TEIXEIRA Rep #: [id number] : 1985 39 From: Gómez Casiano MD PCP: Dr. Ortega Medrano MD Status:[facility] Location: [place] [address] History and Physical Date of Admission: 05/12/25 Date of Service: 04/17/25 MR#: [id number] Acct: [id number] Name: HAMLET TEIXEIRAIA Rep #: [id number] : 1985 Provider: Dr. 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 The latter [...] ROS General General: Y (more content not included)...[facility]09-16-2025 Consult note [facility] Medical Records Department [address] [place] [address] Pre-Anesthesia Evaluation 05/12/25 1018 MR#: [id number] Acct: [id number] Name: HAMLET TEIXEIRA Rep # :[id number] : 1985 39 From: Leighton Copeland MD PCP: Dr. Ortega Medrano MD Status:RE G SDC Y Race: C [facility] ASA Classification* ASA Classification ASA Classification: 2 [...] 02/05/25 12:02/05/25 Hct 39.8 % (37-47) 02/05/25 12:11 02/05/25 Plt Count 382 K/mm3 (150-450) 02/05/25 12:11 02/05/25 CHEMISTRY Potassium 4.1 mmol/L (3.3-5.1) 02/05/25 12:02/05/25 Sodium 138 mmol/L (133-145) 02/05/25 12:11 02/05/25 Phosphorus 2.6 mg/dL (2.7-4.5) L 11/15/24 08:56 11/15/24 BUN 7 mg/dL (4-19) 02/05/25 12:11 02/05/25 Creatinine 0.82 mg/dL (0.70-1.20) 02/05/25 12:11 02/05/25 Glucose 93 mg/dL (70-99) 02/05/25 12:11 02/05/25 TSH 1.840 uIU/mL (0.300-4.200) 02/05/25 12:11 01/25 10/21 COAG PT 12.9 SECONDS (11.7-14.9) 04/02/20 11:05 HCG, Quant 59609 mIU/mL (1-3) H 10/27/19 15:35 10/27/19 Pre-Assessment Diagnosis/Proposed Procedure Planned Operative Procedure(s): TOTAL THYROIDECTOMY Anesthesia History Anesthesia History - territory development manager: Anesthesia History - territory development manager Hx Hospitalization No 05/06/25 10:07 Any Problems [...] take am of surgery PONV PONV - territory development manager: PONV - territory development manager Female Yes 05/06/25 10:07 HX of Motion [...] 05/12/25 09:53 Respiratory Assessment Respiratory Assessment - territory development manager: Respiratory Tract Infection Hx - territory development manager Hx Respiratory Tract Infection No 05/06/25 10:07 STOP Sleep Apnea STOP Sleep Apnea - territory development manager: STOP Sleep Apnea - territory development manager Hx Hypertension No 05/06/25 10:07 Hx Sleep [...] Tobacco Use History Tobacco Use History - territory development manager: Tobacco Use History - territory development manager Tobacco Use Smoking Status Never smoker 05/06/25 10:07 Hx Tobacco Use No 05/06/25 10:07 Years Smoking Packs Smoked per Day Smoking Cessation Date was within the last 15 years Hx Smoking Cessation Date Hx Smoking Cessation Counseling Hematologic Medial History Hematologic Hx - territory development manager: 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 Hx of Blood Transfusion No 05/06/25 10:07 [...] confused, unrespo /Reproduction History /Reproductive History - territory development manager: /Reproductive Hx- territory development manager Hx Now No 05/06/25 10:07 Gestational Age [...] current occupational status: employed 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 05/12/25 1032 lauren SANTOS> Date _ Leighton Maldonado Signature: Date CC: ~ Signed [facility]09-02-2025 Radiology Diagnostic study note [facility] Imaging Services [address] [place] [address] Head/Neck Soft Tissue MR#: [id number] Acct: [id number] Name: HAMLET TEIXEIRA Rep #: [id number] : 1985 F 39 From: Rick Cox MD PCP: Dr. Ortega Medrano MD Status: RE G CLI Study:Head/Neck Soft Tissue Date of Exam: 04/23/25 Exam# [id number] Ordering Dr: Gillian Casiano MD ADDENDUM by Dr. Ian Cox MD on 04/28/25 at 1320 The lymph node as a normal appearing fatty hilum and good cortical thickness. This suggests benignity. Reading Location: [facility] 04/28/25 1321 Date cc: Dr. Ortega Medrano [...] right side of the neck. Reading Location: [id number] CC: Dr. Ortega Medrano MD; Dr. Gómez Casiano MD ~ Associate Professor Of Physics: Signed [facility]08-22-2025 Evaluation note* Diagnosis Onset Date Resolution Status Admit Date Multiple thyroid nodules acute April 17, 2025 9:12am [facility] Work Phone: 1(621) 142-532808-22-2025 Evaluation note* Diagnosis Onset Date Resolution Status Admit Date Multiple thyroid nodules acute April 17, 2025 9:12am Status post total thyroidectomy acute May 12, 2025 2:52pm [facility] Work Phone: 1(810) 468-273108-22-2025 Evaluation note* Diagnosis Onset Date Resolution Status Admit Date Multiple thyroid nodules acute April 17, 2025 9:12am Status post total thyroidectomy acute May 12, 2025 2:52pm Status post total thyroidectomy acute May 22, 2025 8:01am [facility] Work Phone: 1(554) 736-398107-21-2025 Note* Addendum Note - Amirah Nice RN - 03/16/2025 2:03 PM EDTAddended by: AMIRAH NICE on: 03/16/2025 02:03 PM Modules accepted: Orders [facility]07-21-2025 Miscellaneous Notes* Addendum Note - Amirah Nice RN - 03/16/2025 2:03 PM EDTAddended by: AMIRAH NICE on: 03/16/2025 02:03 PM Modules accepted: Orders * Addendum Note - Amirah Nice RN - 03/16/2025 2:01 PM EDTAddended by: AMIRAH NICE on: 03/16/2025 02:01 PM Modules accepted: Orders documented in [facility]Reg[facility] Note* Addendum Note - Amirah Nice RN - 03/16/2025 2:01 PM EDTAddended by: AMIRAH NICE on: 03/16/2025 02:01 PM Modules accepted: Orders [facility]07-21-2025 NoteHNO ID: [id number] Author: BALTAZAR COURTNEY MD Service: ? Author [...] applied and the patient tolerated the procedure well.[facility]07-21-2025 History of Present illness Narrative* Baltazar Courtney [...] tolerated the procedure well. documented in this encounterRegional Medical Center07-21-2025 Instructions* Patient Instructions* Amirah Nice RN - 03/16/2025 1:44 PM EDT The following instructions are important for you related to your office visit today with the [facility] General Surgeons. Instructions After THYROID FINE [...] you have any questions or concerns @ [phone]. Please make an appointment to follow up in one week with your physician and [facility] If you note any additional difficulties, questions, or concerns, you should contact our office immediately @ [phone] and ask to be transferred to the General Surgery department. documented in this [facility]Reg[facility] Center[facility]-2025 NoteHNO ID: [id number] Author: AMIRAH NICE RN Service: ? Author [...] has been communicated to the patient or surrogate.[facility]07-21-2025 Procedure note* Amirah Nice RN - [...] been communicated to the patient or surrogate. [facility] Procedure note* Amirah Nice RN [...] the patient or surrogate. documented in this encounterReg[facility] Center07-18-2025 NoteHNO ID: [id number] Author: BALTAZAR COURTNEY MD Service: ? Author [...] 1 week post operatively. (more content not included)...[facility]07-18-2025 History of Present illness Narrative* Baltazar Courtney [...] operatively. Baltazar Courtney III, MD * Yelitza WhitlockMARITO - 03/09/2025 2:19 PM EDT REVIEW OF [...] N/A Yelitza Whitlock LPN documented in this encounterRegional Medical Center07-14-2025 NoteHNO ID: [id number] Author: YELITZA WHITLOCK LPN Service: ? Author [...] screening? N/A Last Colonoscopy: N/A [facility] Whitlock [facility] Radiology Diagnostic study note [facility] Imaging Services [address] [place], [place] [id number] Thyroid MR#: [id number] Acct: [id number] Name: MEMEABNERHAMLET ZO Rep #: [id number] : 1985 F 39 From: Pet er Peer DO PCP: Dr. Ortega Medrano MD Status: RE G CLI Study:Thyroid Date of Exam: 02/12/25 Exam# [id number] Ordering Dr: Ortega Medrano MD PROCEDURE: THYROID [...] no more than 2 nodules. Reading Location: [facility] CC: Dr. Ortega Medrano MD ~ Associate Professor Of Physics: Signed [facility]12-04-2024 NoteHNO ID: [id number] Author: YORDY ANDERSEN MD Service: ? Author Type: Physician Type: Progress Notes Filed: 07/30/2024 15:43 Note Text: Patient presents with: Cough: Sinus issues, sore throat, drainage, CORONEL x 1.5 weeks HPI: Feeling sick for [...] MG-POTASSIUM CLAVULANATE 125 MG TABLET Yordy Andersen [facility]12-04-2024 History of Present illness Narrative* oYrdy Andersen MD - 07/30/2024 3:34 PM EST Patient presents with: Cough: Sinus issues, sore throat, drainage, CORONEL x 1.5 weeks HPI: Feeling sick for [...] TABLET Yordy Andersen MD documented in this [facility]Reg[facility] Center12-03-2024 History of Present illness Narrative* Gómez Younger MD - 07/29/2024 3:00 PM EST @ASSESSMENTBEGINPHANTOM@ Assessment: Diagnosis Plan 1. [...] Review of Systems as recordedby the medical dermatologist has been reviewed by me, and I [...] 07/29/2024 at 3:29 PM. documented in this [facility]12-03-2024 Instructions* Patient Instructions* Maryana Spivey - 07/29/2024 3:00 PM EST -Healed well. documented in this [facility]11-11-2024 History of Present illness Narrative* Gómez [...] Review of Systems as recordedby the medical dermatologist has been reviewed by me, and I [...] 07/07/2024 at 2:51 PM. documented in this [facility]SUniversity [facility]* Diagnosis Onset Date Resolution Status Acne acute DVT (deep venous thrombosis) acute Menorrhagia with regular cycle acute Encounter for routine gynecological examination noneactive [facility] Work Phone: Evaluation note* Diagnosis Perianal abscess- Primary Abscess of anal and rectal regions [facility] [place] [facility]* Diagnosis Perianal abscess- Primary Abscess of anal and rectal regions documented in this encounter [facility] [place] [facility]* Diagnosis Acute non-recurrent sinusitis, unspecified location- Primary documented in this encounter [facility] noteNo assessment information availableWWilson Street Hospital Work Phone: Evaluation note* Diagnosis Multinodular goiter- Primary Nontoxic multinodular goiter documented in this encounter [facility] note* Diagnosis Multinodular goiter- Primary Nontoxic multinodular goiter documented in this encounter [facility] note Author Gómez Casiano [facility] Note Date/Time May 22, 2025 8:22am [facility] [address] [place] [address] OFFICE VISIT Date of Service: 05/22/25 MR#: [id number] Acct: [id number] Name: HAMLET TEIXEIRA p #: [id number] : 1985 Provider: Dr. Omer Casiano MD Age/Sex: 39/F Location: [facility] Status: Signed Intake Vital Signs 05/12/25 16:47 [...] She shares that there has been a slight change in her voice with some slight hoarseness. They confirm regular thyroid supplementation without interruption. Objective Details: Constitutional: No acute distress, cooperative, appreciative Neck: Slight erythema along right side of patient's lower cervical incision and slight nodule along the left. No particular tenderness. 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 It is unclear to me how she had a prior FNA biopsy given a Tustin 5 diagnosis and our final pathology appears [...] Casiano MD> Date _ Gómez Casiano MD [facility] Signature: Date (if applicable) CC: Dr. Ortega Medrano MD ~ [facility] Work Phone: Reason for referral (narrative)No reason for referral information availableWWilson Street Hospital Work Phone: Reason for visit Narrative* Consult, Test, Treat (Routine) - Closed Specialty Diagnoses / Procedures Referred By Karyna keen Referred To Contact General Surgery / GENERAL SURGERY Diagnoses Thyroid nodule fna right thyroid x2 30min Procedures FINE NEEDLE ASPIRATION BX W/O IMG GDN 1ST LESION FINE NEEDLE ASPIRATION BX W/O IMG GDN EA ADDL SURGERY 30 Baltazar Courtney MD [address] [place] [address] Phone: tel: fax: Baltazar Courtney MD [address] [place] [address] Phone: tel: fax: Referral ID Status Reason Start Date Expiration Date Visits Re quested Visits Authorized [id number] Closed 03/12/2025 08/26/2025 1 [facility] Summary Purpose Family History No Family History Records Found Relationship Condition Age at Onset Recorded Date/T leo grandmother Malignant neoplasm of breast Unknown father Hypertension Unknown Diabetes mellitus Unknown mother Hypertension Unknown Advance Directives No Advanced Directives Records Found Advance Directive Response Recorded Date/ Time Living Will No May 07, 2021 7:56pm Power of City Alderman No April 7:56pm Advance Directive Response Recorded Date/ Time Do you have a Healthcare Power of City Alderman? 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 25, 2024 7:16 am 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 November 15, 2024 8:4 4am Chief Complaint Admit Date [employer] [facility] 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 REHIRE ua y 2024 10:22am 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 October 25, [...] r 2024 2:52pm Status post total thyroidectomy Aprbetina r 2024 8:01am Additional Source Comments INFORMATION SOURCE (unrecogn ized section and content) DATE CREATED AUTHOR 02/15/2018 [facility] ([place]) DATE CREATED AUTHOR AUTHOR'S ORGANIZ ATION 08/05/2018 [facility] DATE CREATED AUTHOR AUTHOR'S ORGANIZ ATION 08/05/2018 [facility] DATE CREATED AUTHOR AUTHOR'S ORGANIZ ATION 03/21/2019 [facility] [place] DATE CREATED AUTHOR AUTHOR'S ORGANIZ ATION 07/31/2024 [facility] DATE CREATED AUTHOR AUTHOR'S ORGANIZ ATION 05/30/2025 [facility] DATE CREATED AUTHOR AUTHOR'S ORGANIZ ATION 06/19/2025 [facility] DATE CREATED AUTHOR AUTHOR'S ORGANIZ ATION 06/23/2025 [facility] Care Teams (unrecognized sec tion and content) Team Status: Active Member Role Status Dates SOMMER FLYNN Family Provider Active Dr. Sommer Flynn MD Primary Care Provider Active Team Status: Inactive Member Role Status Dates Dr. Sommer Flynn MD Referring Provider Active Michell Woodard SPECIAL EVENTS ASSISTANT, SPECIAL EVENTS ASSISTANT-C Attending Provider Active Team Status: Inactive Member Role Status Dates Michell Woodard SPECIAL EVENTS ASSISTANT, SPECIAL EVENTS ASSISTANT-C Attending Provider, Referring Provider Active Dr. Sommer Flynn MD Primary Care Provider Active Ems Director Relationship Specialty Start Date End Date Sommer Flynn MD [address] [place] [address] PCP - General Family Medicine 07/07/24 Ems Director Relationship Specialty Start Date End Date Sommer Flynn MD [address] [place] [address] PCP - General Family Medicine 07/07/24 Ems Director Relationship Specialty Start Date End Date Sommer Flynn MD [address] [place] [address] PCP - General Family Medicine 07/30/24 Team [...] February 12, 2025 End: February 12, 2025 Ems Director Relationship Specialty Start Date End Date Sommer Flynn MD PCP - General Family Medicine 07/30/24 Ems Director Relationship Specialty Start Date End Date Ortega Medrano MD [address] [place] [address] PCP - General Family Medicine 03/09/25 Ems Director Relationship Specialty Start Date End Date Ortega Medrano MD [address] [address] PCP - General Family Medicine 03/09/25 Team [...] Cough Sinus issues, sore t hroat, drainage, CORONEL x 1.5 weeks Reason Comments Consult Source Comments (unrecognize d section and content) In the event this informatio n is protected by the Federal Confidentiality of Alcohol and Drug Abuse Patient Records regulations: The Federal rules restrict any use of the information to criminally investigate or prosecute any alcohol or drug abuse patient.[facility] CenterIn the event this information is protected by the Federal Confidentiality of Alcohol and Drug Abuse Patient Records regulations: The Federal rules restrict any use of the information to criminally investigate or prosecute any alcohol or drug abuse patient.[facility] Medical CenterIn the event this information is protected by the Federal Confidentiality of Alcohol and Drug Abuse Patient Records regulations: The Federal rules restrict any use of the information to criminally investigate or prosecute any alcohol or drug abuse patient.[facility] CenterIn the event this information is protected by the Federal Confidentiality of Alcohol and Drug Abuse Patient Records regulations: The Federal rules restrict any use of the information to criminally investigate or prosecute any alcohol or drug abuse patient.[facility] FOR RECORDS PERTAINING TO PATIENTS WHO ARE [...] BE BASED ON THE PRIMARY CLINICAL RECORDS. [employer] [facility]. provides no warranty or guarantee of the accuracy or completeness of information in this document.
--- OUTSIDE RECORDS SUMMARY | 2025-06-24 07:32 | XMS RPT_ITS | CCD ---
Author Organization [facility] Care Team Providers Care Electrical Products Sales Engineer Name Role Phone SOMMER FLYNN Unavailable Unavailable HRICS, COLT Unavailable Unavailable SOMMER FLYNN Unavailable Unavailable KAREN ARAIZA Unavailable Unavailable IMCA Unavailable Unavailable GINNA CANTU Unavailable Unavailable Dr. Sommer Flynn Referring Provider Vance STAVE BLOCK SPLITTER, STAVE BLOCK SPLITTERLibraC Michell Attending Provider Sommer Flynn MD Primary [...] Provider Sommer Flynn MD Primary Care Provider [phone] Ortega Medrano MD Primary Care Provider Dr. [...] Care Unavailable Gómez Casiano Admitting Unavailable Gómez aCsiano Referring Unavailable Gómez Casiano Attending Unavailable Ortega [...] 06, 2025 10:05am take 1 tablet by [facility] once daily cholecalciferol (VITAMIN D-3) [...] once daily. 11/28/2024 Active Start: 06-27-2024 FLUoxetine (MD OZAC) 20 mg capsule Take 20 mg [...] Start: 01-09-2025 take 1 capsule by [facility] every eight hours as needed hydrOXYzine [...] Discontinued Start: 01-15-2015 End: 07-30-2024 Breast Pump mynro Indications : Interruption in breast feeding Use [...] daily. 1 Package 12 06/15/2015 07/30/2024 Discontinued Xwsltztp-Om-Obi-Fe-FA ( VITAMIN) tab (1 source) Start: 04-23-2014 End: 07-30-2024 take 1 tablet by mouth once daily Axiudezq-Wd-Jbr-Fe -FA ( VITAMIN) tab Take 1 tablet [...] trimester] 07-08-2020 Episodic Comment on above: PRR SKLYA: girl Izzy PC: [place] Spouse: Herberth Other [...] would appear patient has a 2.2 cm [place] 5 nodule suspicious for unifocal PTC. I held a lengthy conversation today with Mrs. Teixeira regarding her surgical options. I suggested that [place] thyroid Association would generally recommend thyroid lobectomy [...] be able to be managed here in [place]. Lastly, I described the implications for risk [...] Name Value Interpretation Reference Range Facility CYTOLOGY, NON-3D ANIMATOR - FNA ONLY on 06-15-2025 CYTOLOGIC DIAGNOSIS Normal [facility] Comment on above: Result Comment: A. 2 ND OPINION CONSULTATION, CYTOLOGY - Thyroid, Right Lower Lobe, FNA ( Collected 03/16/2025): FINAL DIAGNOSIS: Atypia Of Undetermined Significance B. 2ND OPINION ADDITIONAL CONSULTATION, CYTOLOGY - Thyroid, Right Upper Middle, FNA: FINAL DIAGNOSIS: Suspicious For Papillary Thyroid Carcinoma at 1123 EDT Performed By: #### N ONGNFNA #### [facility] (DEFAULT) [address] [place] [address] Case Report Normal [facility] Comment on above: Result Comment: [facility] Cytology Report Case: [id number] Authorizing Provider: Gómez Casiano MD Collected: 06/15/2025 11:22 AM Ordering Location: [facility] Received: 06/15/2025 09:20 AM [place] Specimens: A) - THYROID FNA, Thyroid, Right Lower Lobe, FNA ( Collected 03/16/2025) B) - THYROID FNA, Thyroid, Right Upper Middle, FNA Performed By: #### N ONGNFNA #### [facility] (DEFAULT) [address] [place] [address] Clinical History Normal [facility] Comment on above: Result Comment: Rece ived is a request from Keiry Mckeon MD at [facility] for a second opinion consultation: 39 F with multiple thyroid nodules. FNA performed @[facility]: Atypia (A), Suspicious for PTC (B). Thyroidectomy @ [facility] reported as benign. Surgeon (Gómez Casiano MD) requests second opinion. Note: Afirma for Atypia (A) reported as benign. (Afirma not performed on part B). Performed By: #### N ONGNFNA #### [facility] (DEFAULT) [address] [address] Gross Description [facility] Comment on above: Result Comment: Subm itted from [facility], [facility] [address] are twenty two (22) slides labeled [id number]. An identifying pathology report is included along with Afirma report. Outside slides are returned in sixty (60) days under separate cover with our number recorded on them. Performed By: #### N ONGNFNA #### [facility] (DEFAULT) [address] [address] Professional Interpretation Performed at: [facility] Comment on above: Result Comment: For Immediate Release to Patient's [facility] Association[facility]? Yes [facility] [address] [place] [address] Performed By: #### N ONGNFNA #### [facility] (DEFAULT) [address] [address] SURG PATH REQUESTon 06-12-20 Case Report [facility] Comment on above: Result Comment: Surg ical Pathology Report Case: [id number] Authorizing Provider: Keiry Mckeon MD Collected: 06/12/2025 02:28 PM Ordering Location: [facility] Received: 06/12/2025 02:28 PM [place] Pathologist: Meghann Carter MD Specimen: SURG PATH, Thyroid, total thyroidectomy Performed By: #### S URGP #### [facility] (DEFAULT) [address] [address] Clinical History Normal [facility] Comment on above: Result Comment: Rece ived is a request from Keiry Mckeon MD at [facility] for a second opinion consultation: 39 F with multiple thyroid nodules. FNA performed @[facility]: Atypia (A), Suspicious for PTC (B). Thyroidectomy @ [facility] reported as benign. Surgeon (Gómez Casiano MD) requests second opinion. Note: Afirma for Atypia (A) reported as benign. (Afirma not performed on part B). Performed By: #### S URGP #### [facility] (DEFAULT) [address] [place] [address] Diagnosis Comments [facility] Comment on above: Performed By: #### S URGP #### [facility] (DEFAULT) [address] [place] [address] Gross Description [facility] Comment on above: Result Comment: The following material(s) are received from [facility], [address] [place] [address], with an identifying surgical pathology report as well as [facility] Cytology report ([id number]) included for review: 11 H&E slide(s) labeled [id number]. Outside materials are returned in upon completion under separate cover with our number recorded on them. Grosser for this case was: Agnes Greg Performed By: #### S URGP #### [facility] (DEFAULT) [address] [place] [address] Microscopic Description A microscopic examination was performed. [facility] Comment on above: Performed By: #### S URGP #### [facility] (DEFAULT) [address] [place] [address] Pathologic Diagnosis [facility] Comment on above: Result Comment: Outs trevon Slides: [id number] (05/12/25) A. 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 Background thyroid with benign follicular nodular disease and patchy chronic lymphocytic thyroiditis. at 1105 EDT Performed By: #### S URGP #### [facility] (DEFAULT) [address] [place] [id number] Professional Interpretation Performed at: [facility] Comment on above: Result Comment: Prof melany interpretation performed remotely at a secondary location, address on file. For Immediate Release to Patient's MyChart? Yes Performed By: #### S URGP #### [facility] (DEFAULT) [address] [place] [phone] Kiarra 05-22-2025 CNPN Telephone ([employer]) HAMLET TEIXEIRA ([id number]) 1985 [facility] Date Time Provider Department 05/22/25 BALTAZAR [...] slides. Megan provided phone number to contact [facility] pathology and informed of link for second opinion: [email or web address] Yelitza Whitlock LPN Allergies As of Date: [...] Status:Closed by YELITZA WHITLOCK on 05/22/25 Normal [facility] Surgery Visit Reporton 05-[address] [facility] [address] [place] [address] [address] [place] [address] OFFICE VISIT Date of Service: 05/22/25 MR#: [id number] Acct: [id number] Name: HAMLET TEIXEIRA Rep #: [id number] : 1985 Provider: Dr. 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 Normal [facility] Anion gap in Serum or Plasma Ordered By: Gómez Casiano on 05-13-2025 Anion gap [Moles/Vol] 12 mmol/L 5-15 [facility] BUN/creatinine ratioOrdered By: Gómez Casiano on 05-13-2025 Urea nitrogen/Creatinine [Mass ratio] 10.6 mg/mg 10- [facility] Bilirubin, totalOrdered By: Gómez Casiano on 05-13-2025 Bilirubin [Mass/Vol] 0.73 mg/dL 0.00-1.30 [facility] Carbon dioxide, total [Moles /volume] in Central venous bloodOrdered By: Gómez Casiano on 05-13-2025 CO2 [Moles/Vol] 21.6 mmol/L 21.0-32.0 [facility] Chloride assayOrdered By: Gillian Casiano on 05-13-2025 Chloride [Moles/Vol] 106 mmol/L 98-108 [facility] Comprehensive Metabolic Prof ilon 05-13-2025 Albumin [Mass/Vol] 4.0 g/dL Normal 3.5-5.0 [facility] Comment on above: Performed By: #### L 500.4050 #### [facility] Laboratory [address] [place], [address] Albumin/Globulin [Mass ratio] 1.5 {ratio} Normal 0.9-2.4 [facility] Comment on above: Performed By: #### L 500.4050 #### [facility] [address] [place], [address] ALK PHOS 81 U/L Normal 35-104 [facility] Comment on above: Performed By: #### L 500.4050 #### [facility] [address] [place], [address] ALT [Catalytic activity/Vol] 63 U/L High <=34 [facility] Comment on above: Performed By: #### L 500.4050 #### [facility] [address] [place], [address] AST [Catalytic activity/Vol] 60 U/L High <=31 [facility] Comment on above: Performed By: #### L 500.4050 #### [facility] [address] [place], [address] Bilirubin [Mass/Vol] 0.73 mg/dL Normal 0.00-1.30 [facility] Comment on above: Performed By: #### L 500.4050 #### [facility] [address] [place], [address] BUN/CRE 10.6 RATIO Normal 10-20 [facility] Comment on above: Performed By: #### L 500.4050 #### [facility] [address] [place], [address] Calcium [Mass/Vol] 8.7 mg/dL Normal 7.6-11.0 [facility] Comment on above: Performed By: #### L 500.4050 #### [facility] [address] [place], [address] Chloride [Moles/Vol] 106 mmol/L Normal 98-108 [facility] Comment on above: Performed By: #### L 500.4050 #### [facility] [address] [place], [address] CO2 [Moles/Vol] 21.6 mmol/L Normal 21.0-32.0 [facility] Comment on above: Performed By: #### L 500.4050 #### [facility] [address] [place], [address] Creatinine [Mass/Vol] 0.75 mg/dL Normal 0.70-1.20 [facility] Comment on above: Performed By: #### L 500.4050 #### [facility] [address] [place], [address] ECRCL 117.01 ml/min Normal 50-250 [facility] Comment on above: Performed By: #### L 500.4050 #### [facility] [address] [place], [address] GAP 12 Normal 5-15 [facility] Comment on above: Performed By: #### L 500.4050 #### [facility] [address] [place], [address] GFR/1.73 sq M.predicted among non-blacks MDRD (S/P/Bld) [Vol rate/Area] 105 mL/min/{1.73_m2} Normal >60 [facility] Comment on above: Result Comment: mL/m in/1.73m2 CKD-EPI Creatinine Equation (2020) Performed By: #### L 500.4050 #### [facility] [address] [place], [address] Globulin (S) [Mass/Vol] 2.8 g/dL Normal 2.2-4.2 [facility] Comment on above: Performed By: #### L 500.4050 #### [facility] [address] [place], [address] Glucose [Mass/Vol] 171 mg/dL High 70-99 [facility] Comment on above: Performed By: #### L 500.4050 #### [facility] [address] [place], [address] Potassium [Moles/Vol] 3.4 mmol/L Normal 3.3-5.1 [facility] Comment on above: Performed By: #### L 500.4050 #### [facility] [address] [place], [address] Sodium [Moles/Vol] 140 mmol/L Normal 133-145 [facility] Comment on above: Performed By: #### L 500.4050 #### [facility] [address] [place], [address] T PROT 6.8 g/dL Normal 5.9-8.4 [facility] Comment on above: Performed By: #### L 500.4050 #### [facility] [address] [place], [address] Urea nitrogen [Mass/Vol] 8 mg/dL Normal 4-19 [facility] Comment on above: Performed By: #### L 500.4050 #### [facility] Laboratory [address] [place], [address] Discharge Instructionon 04-27 Discharge Instruction [facility] Medical Records Department [address] [place] [address] Instructions for Home/Discharge Instructions 05/13/25 0755 MR#: [id number] Acct: [id number] Name: HAMLET TEIXEIRA Rep #: [id number] : 1985 39 From: Gómez Casiano MD PCP: Dr. Ortega eMdrano MD Status:ADM BONI Discharge Instructions DC O2, [...] Ortega Medrano MD Signed Normal [facility] Glomerular filtration rate ( GFR) estimation/1.73 sq m using serum, plasma, or whole bOrdered By: Gómez Casiano on 05-13-2025 GFR/1.73 sq M.predicted among non-blacks MDRD (S/P/Bld) [Vol rate/Area] 105 mL/min/{1.73_m2} >60 [facility] Comment on above: mL/min/1.73m2 CKD-EP I Creatinine Equation (2020) Laboratory - Chemistry and C hemistry - challengeOrdered By: Gómez Casiano on 05-13-2025 AST [Catalytic activity/Vol] 60 U/L High <32 [facility] PTHINon 05-13-2025 PTH 58 pg/mL Normal 11-61 [facility] Comment on above: Performed By: #### L 400.1847 #### [facility] Laboratory [address] [place], [address] Potassium measurement (mass/ volume)Ordered By: Gómez Casiano on 05-13-2025 Potassium (Unsp spec) [Mass/Vol] 3.4 mmol/L 3.3-5.1 [facility] Serum creatinine measurement (mass/volume)Ordered By: Gómez Casiano on 05-13-2025 Creatinine [Mass/Vol] 0.75 mg/dL 0.70-1.20 [facility] Serum globulin measurementOr dered By: Gómez Casiano on 05-13-2025 Globulin (S) [Mass/Vol] 2.8 g/dL 2.2-4.2 [facility] Serum glucose measurement (m ass/volume)Ordered By: Gómez Casiano on 05-13-2025 Glucose [Mass/Vol] 171 mg/dL High 70-99 [facility] Serum or plasma alanine gorman otransferase (ALT) measurementOrdered By: Gómez Casiano on 05-13-2025 ALT [Catalytic activity/Vol] 63 U/L High <35 [facility] Serum or plasma albumin harry urement (mass/volume)Ordered By: Gómez Casiano on 05-13-2025 Albumin [Mass/Vol] 4.0 g/dL 3.5-5.0 [facility] Serum or plasma albumin/glob ulin mass ratioOrdered By: Gómez Casiano on 05-13-2025 Albumin/Globulin [Mass ratio] 1.5 {ratio} 0.9-2.4 [facility] Serum or plasma alkaline doim sphatase measurementOrdered By: Gómez Casiano on 05-13-2025 ALP [Catalytic activity/Vol] 81 U/L 35-104 [facility] Serum or plasma calcium harry urement (mass/volume)Ordered By: Gómez Casiano on 05-13-2025 Calcium [Mass/Vol] 8.7 mg/dL 7.6-11.0 [facility] Serum or plasma urea nitroge n measurement (mass/volume)Ordered By: Gómez Casiano on 05-13-2025 Urea nitrogen [Mass/Vol] 8 mg/dL 4-19 [facility] Sodium levelOrdered By: Omer honeycutt Oh on 05-13-2025 Sodium [Moles/Vol] 140 mmol/L 133-145 [facility] Total proteinOrdered By: Sadiq coronelolimpia Oh on 05-13-2025 Protein [Mass/Vol] 6.8 g/dL 5.9-8.4 [facility] MR/POSTOP.ANEon 05-12-2025 MR/POSTOP.ANE [facility] Medical Records Department [address] [place] [address] Anesthesia Postop Eval I 05/12/25 1508 MR#: [id number] Acct: [id number] Name: HAMLET TEIXEIRA Rep #: [id number] : 1985 39 From: Estella Henry CRNA PCP: Dr. Ortega Medrano MD Status:REG ORC Y Race: C Location: [place] [address] Anesthesia: Postop Eval I Current Vital Signs [...] completed: Yes 05/12/25 1510 Date Estella Gongaguedabart PARKING METER MECHANIC Cosigner Signature: Date CC: Signed Normal [facility] MR/[id number] 05-12-2025 MR/POSTOPAN2 [facility] Medical Records Department [address] [place] [address] Anesthesia Postop Eval II 05/12/25 1709 MR#: [id number] Acct: [id number] Name: HAMLET TEIXEIRA Rep #: [id number] : 1985 39 From: Leighton Copeland MD PCP: Dr. Ortega Medrano MD Status:ADM BONI Y Race: C Location: [place] [address] Anesthesia Postop Eval I Sum Postop Eval Completion status Anesthesia document: Postop Eval 1 completed: Yes Anesthesia Postop Eval I Summary Anesthesia Postop Eval I Summary: Anesthesia Postop Eval I: Assessment Summary Airway patent Yes 05/12/25 15:10 PARKING METER MECHANIC.GDOTT Spontaneous unlabored Yes 05/12/25 15:10 PARKING METER MECHANIC.GDOTT respirations Mental status Awake,Calm 05/12/25 15:10 PARKING METER MECHANIC.GDOTT nausea No 05/12/25 15:10 PARKING METER MECHANIC.GDOTT Vomiting No 05/12/25 15:10 PARKING METER MECHANIC.GDOTT Anesthesia Postop Eval I: Fluid Summary Crystalloid volume administer 1,400 05/12/25 15:10 PARKING METER MECHANIC.GDOTT (ml) Colloids volume administered ( ml) Blood Product volume administered (ml) Total IV fluid infused 1,400 05/12/25 15:10 PARKING METER MECHANIC.GDOTT Anesthesia Postop Eval I: Summary Notes Anesthesia Complication No 05/12/25 15:10 PARKING METER MECHANIC.GDOTT Anesthesia Complication Comment: Post-operative progress note Anesthesia: [...] MD Cosigner Signature: Date CC: Signed Normal [facility] Operative Reporton 5 Operative Report [facility] Medical Records Department [address] [place] [address] Operative Report 05/12/25 1448 MR#: [id number] Acct: [id number] Name: HAMLET TEIXEIRA Rep #: [id number] : 1985 39 From: Gómez Casiano MD PCP: Dr. Ortega Medrano MD Status:ADM BONI Location: [facility] [id number] Procedures Endocrine CF Procedures [id number]: [address] Removal of thyroid Operative Report (Standard) Operative Information Date of Procedure: 05/12/25 Pre-Operative Diagnosis: Papillary thyroid carcinoma right thyroid lobe Post-Operative Diagnosis: Same Surgery/Procedure Performed: Total thyroidectomy with intraoperative nerve monitoring mover helper: Yes Sales Property Manager: Rosalinda Schmitt Tasks completed by water quality assistant: Opening closing and Retracting Type of [...] (more content not included)... Normal [facility] PTHINon 05-12-2025 PTH 76 pg/mL High [facility] Comment on above: Performed By: #### L 500.4050 #### [facility] Laboratory [address] [place], [place], [address] ,Urineon 05-12-2025 Beta HCG ( test) Ql (U) [facility] Comment on above: Result Comment: Canc elled via OM: patient refused Performed By: #### L 400.4870 #### [facility] Laboratory [address] [place], [address] INTERNAL QC OK? Normal [facility] Comment on above: Result Comment: Canc elled via OM: patient refused Performed By: #### L 400.7600 #### [facility] Laboratory [address] [place], [address] RECORD KIT LOT# Normal [facility] Comment on above: Result Comment: Canc elled via OM: patient refused Performed By: #### L 400.7600 #### [facility] Laboratory [address] [place], [address] Surgery Specimen Level Von 0 9-16-2025 Surgery Specimen Level V -------- Patient Age/Sex Location Account Attending Physician -------- HAMLET TEIXEIRA 39/F MS3 [id number] Dr. Gómez Casiano MD -------- Specimen: [id number] Received: 05/12/25 Status: RYAN Dennison Num: [id number] Spec Type: THYROID Subm Dr: Dr. Gómez [...] ink. A definitive capsule is not identified. Sail Cutter sections are submitted, to include the entirety of the nodules (approximately 90% of the specimen) as follows: A1-A4: Nodule #1A5-A7: Nodules #1 and #2A8: Nodule #3 to nodule #2, perpendicularA9: Nodule #3, perpendicular and isthmus/pyramidal ligyE27-O97: Nodule #4 NC 05/13/2025 [facility]:[address] -------- Patient Age/Sex Location Account Attending Physician -------- HAMLET TEIXEIRA 39/F MS3 [id number] Dr. Gómez Casiano MD -------- ADDENDUM Addendum 2 Entered: 06/19/25-4970 This addendum is added to incorporate an outside pathology consultation report. The case was examined at [facility] by Dr. Carter (#[id number]) and the following diagnosis was rendered. A. [...] Addendum 1 Entered: 06/11/25 Expert consultation at [facility] and correlation with the thyroid FNA performed at [facility] ([facility] [id number]) is PENDING per Dr Casiano's request. A separate report from [facility] will follow. Addendum Signed (signature on file) Dr. Keiry Mckeon MD 06/11/25900 -------- -------- Patient Age/Sex Location Account Attending Physician -------- HAMLET TEIXEIRA 39/F MS3 [id number] Dr. Gómez Casiano MD -------- Signed (signature on file) Dr. Gregorio Riggins MD 05/18/25 1331 (more content not included)... Normal [facility] Comment on above: Performed By: #### L 400.7600 #### [facility] Laboratory [address] [place], [place], [address] Head/Neck Soft Tissueon - Head/Neck Soft Tissue [facility] Imaging Services [address] [place], [place] [address] Head/Neck Soft Tissue MR#: [id number] Acct: [id number] Name: HAMLET TEIXEIRA Rep #: [id number] : 1985 F 39 From: Ian wang MD PCP: Dr. Ortega Medrano MD Status: [facility] Study: Head/Neck Soft Tissue Date of Exam: 04/23/25 Exam# [id number] Ordering Dr: Gómze Casiano MD ADDENDUM by Dr. Ian Cox MD on 04/28/25 at 1320 The lymph node as a normal appearing fatty hilum and good cortical thickness. This suggests benignity. Reading Location: [facility]-1 04/28/25 1321 Date cc: Dr. Ortega Medrano [...] right side of the neck. Reading Location: [id number] CC: Dr. Ortega Medrano MD; Dr. Gómez Casiano MD Information Technology Professor: Signed Normal [facility] Surgery Visit Reporton 04-[address] [facility] [address] [place] [address]. [address] [place] [address] OFFICE VISIT Date of Service: 04/17/25 MR#: [id number] Acct: [id number] Name: HAMLET TEIXEIRA Rep #: [id number] : 1985 Provider: Dr. 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 The latter [...] problems, arth (more content not included)... Normal [facility] THYROID FNA ANALYSISo n 03-16-2025 [facility] Normal [facility] Comment on above: Order Comment: Speci men Type: SPECIMEN OBTAINED BY ASPIRATION Ordering Facility: [facility] Address: [address] [place] [address] Result Comment: View results in Scanned Documents link when available. Performed By: #### A EVETTE #### [facility] CLIA [id number] [address] [place] [address] [place] [address] [place] CNOVon 03-16-2025 CNOV Office Visit (GENSWS ) HAMLET TEIXEIRA ([id number]) 1985 F [facility] Date Time Provider Department 03/16/25 1:30 PM [...] to your office visit today with the [facility] General Surgeons. Instructions After THYROID FINE [...] you have any questions or concerns @ [phone]. Please make an appointment to follow up in one week with your physician and thank you for choosing the [facility]. If you note any additional difficulties, questions, or concerns, you should contact our office immediately @ [phone] and ask to be transferred to the [...] Modules accepted: Orders Referring Provider: BALTAZAR COURTNEY [[id number]] Allergies As of Date: 03/16/2025 (No Known Allergies) Date Reviewed: 03/09/2025 Reviewed by: Yelitza Whitlock LPN - Fully Assessed Primary Visit Diagnosis:Multinodular goiter [E04.2] Order(s):US THYROID BIOPSY RIGHT (POC) SURG USE ONLY [7201593] Order #: [id number]. #:[id number]: 1 CYTOLOGY NON-3D ANIMATOR [[id number]] Order #: [id number]. #:[id number] CYTOLOGY NON-3D ANIMATOR [[id number]] Order #: [id number]. #:[id number] Prescriptions as of 03/17/2025 - FLUoxetine (PROZAC) [...] instructions fr (more content not included)... Normal [facility] CYTOLOGY NON-GYNon ADDENDUM 1: Normal [facility] Comment on above: Order Comment: Speci men Type: SPECIMEN OBTAINED BY ASPIRATION Ordering Facility: [facility] Address: [address] [place] [address] Result Comment: Tawny cted slides from part B has been reviewed with Dr. Rell Garcias who concurs. Addendum electronically signed by Carlito Palma MD, PhD on 05/27/2025 at 1434 EDT Performed By: #### C CONCHIS #### [facility] CLIA [id number] [address] [place] [address] [place] AP DISCLAIMER Normal [facility] Comment on above: Order Comment: Speci men Type: SPECIMEN OBTAINED BY ASPIRATION Ordering Facility: [facility] Address: [address] [place] [address] Result Comment: Darrin sarah Developed Test (LDT) Disclaimer: Performance characteristics of immunohistochemical, immunofluorescent, and chromogenic in-situ hybridization tests have been determined by the performing laboratory within [facility]'s [place] Pathology and Laboratory Medicine Department ([facility], [facility], [facility], [facility], [facility], [facility], or [facility]) in a manner consistent with CLIA [...] appropriately. Performed By: #### C YTONON #### [facility] CLIA [id number] [address] [place] [address] [place] CASE REPORT Normal [facility] Comment on above: Order Comment: Speci men Type: SPECIMEN OBTAINED BY ASPIRATION Ordering Facility: [facility] Address: [address] [place] [address] Result Comment: [facility] Cytology Report Case: [id number] Authorizing Provider: Baltazar Courtney MD Collected: 03/16/2025 01:51 PM Ordering Location: General Surgery Received: 03/17/2025 07:18 AM Pathologist: Carlito Palma MD, PhD Specimens: A) - Thyroid, Right, Lobe, right lower lobe B) - Thyroid, Right, Lobe, right upper middle Performed By: #### C YTONON #### [facility] CLIA [id number] [address] [place] [address] STATES OF [facility] CLINICAL HISTORY thyroid nodules Normal [facility] Comment on above: Order Comment: Speci men Type: SPECIMEN OBTAINED BY ASPIRATION Ordering Facility: [facility] Address: [address] [place] [address] Result Comment: Afirma received for A, B Performed By: #### C YTONON #### [facility] CLIA [id number] [address] [place] [address] FINAL DIAGNOSIS Normal [facility] Comment on above: Order Comment: Speci men Type: SPECIMEN OBTAINED BY ASPIRATION Ordering Facility: [facility] Address: [address] [place] [address] Result Comment: A - Thyroid, Right, Lobe, FNA - right lower lobe Atypia of undetermined significance. (See comment) B - Thyroid, Right, Lobe, FNA - right upper middle Suspicious for papillary thyroid carcinoma. at 1256 EDT Performed By: #### C YTONON #### [facility] CLIA [id number] [address] [place] [address] [place] FINAL PERFORMING LAB Normal [facility] Comment on above: Order Comment: Speci men Type: SPECIMEN OBTAINED BY ASPIRATION Ordering Facility: [facility] Address: [address] [place] [address] Result Comment: Tech nical component, box attacher screening performed at: [facility], [address] [place] [address] [place] [address] CLIA: [id number] Diagnostic interpretation performed at: [facility], [address] [place] [address] [place] [address] CLIA# [id number] Insurance Salesman: Rashaun Tavera MD Performed By: #### C YTONON #### [facility] CLIA [id number] [address] [place] [address] [place] GROSS DESCRIPTION Normal [facility] Comment on above: Order Comment: Speci men Type: SPECIMEN OBTAINED BY ASPIRATION Ordering Facility: [facility] Address: [address] [place] [address] Result Comment: A. T hyroid, Right, Lobe 30 cc clear colorless CytoLyt . ThinPrep prepared and 8 smears. Afirma received B. Thyroid, Right, Lobe 30 cc clear light pink CytoLyt . ThinPrep prepared and 12 smears. Afirma received Performed By: #### C YTONON #### [facility] CLIA [id number] [address] [place], [place] [address] [place] ADDENDUM 1: Normal [facility] Comment on above: Order Comment: Speci men Type: SPECIMEN OBTAINED BY ASPIRATION Ordering Facility: [facility] Address: [address] [place] [address] Result Comment: Tawny cted slides from part B has been reviewed with Dr. Rell Garcias who concurs. Addendum electronically signed by Carlito Palma MD, PhD on 05/27/2025 at 1434 EDT Performed By: #### C YTONON #### [facility] CLIA [id number] [address] [place] [address] [place] AP DISCLAIMER Normal [facility] Comment on above: Order Comment: Speci men Type: SPECIMEN OBTAINED BY ASPIRATION Ordering Facility: [facility] Address: [address] [place] [address] Result Comment: Darrin sarah Developed Test (LDT) Disclaimer: Performance characteristics of immunohistochemical, immunofluorescent, and chromogenic in-situ hybridization tests have been determined by the performing laboratory within [facility]'s [facility] Pathology and Laboratory Medicine Department ([facility], [facility], [facility], [facility], [facility], [facility], or [facility]) in a manner consistent with CLIA [...] appropriately. Performed By: #### C YTONON #### [facility] CLIA [id number] [address] [place] [address] [place] CASE REPORT Normal [facility] Comment on above: Order Comment: Speci men Type: SPECIMEN OBTAINED BY ASPIRATION Ordering Facility: [facility] Address: [address] [place] [address] Result Comment: [facility] Cytology Report Case: [id number] Authorizing Provider: Baltazar Courtney MD Collected: 03/16/2025 01:51 PM Ordering Location: General Surgery Received: 03/17/2025 07:18 AM Pathologist: Carlito Palma MD, PhD Specimens: A) - Thyroid, Right, Lobe, right lower lobe B) - Thyroid, Right, Lobe, right upper middle Performed By: #### C YTONON #### [facility] CLIA [id number] [address] [place] [address] [place] CLINICAL HISTORY thyroid nodules Normal [facility] Comment on above: Order Comment: Speci men Type: SPECIMEN OBTAINED BY ASPIRATION Ordering Facility: [facility] Address: [address] [place] [address] Result Comment: Afirma received for A, B Performed By: #### C YTONON #### [facility] CLIA [id number] [address] [place] [address] [place] FINAL DIAGNOSIS Normal [facility] Comment on above: Order Comment: Speci men Type: SPECIMEN OBTAINED BY ASPIRATION Ordering Facility: [facility] Address: [address] [place] [address] Result Comment: A - Thyroid, Right, Lobe, FNA - right lower lobe Atypia of undetermined significance. (See comment) B - Thyroid, Right, Lobe, FNA - right upper middle Suspicious for papillary thyroid carcinoma. at 1256 EDT Performed By: #### C YTONON #### [facility] CLIA [id number] [address] [place] [address] [place] FINAL PERFORMING LAB Normal [facility] Comment on above: Order Comment: Speci men Type: SPECIMEN OBTAINED BY ASPIRATION Ordering Facility: [facility] Address: [address] [place] [address] Result Comment: Tech nical component, box attacher screening performed at: [facility], [address] [place], [place] [id number] CLIA: [id number] Diagnostic interpretation performed at: [facility], [address] [place] [address] [place] [address] CLIA# [id number] Insurance Salesman: Rashaun Tavera MD Performed By: #### C YTONON #### [facility] CLIA [id number] [address] [place], [place] [address] [place] GROSS DESCRIPTION Normal [facility] Comment on above: Order Comment: Speci men Type: SPECIMEN OBTAINED BY ASPIRATION Ordering Facility: [facility] Address: [address] [place] [address] Result Comment: A. T hyroid, Right, Lobe 30 cc clear colorless CytoLyt . ThinPrep prepared and 8 smears. Afirma received B. Thyroid, Right, Lobe 30 cc clear light pink CytoLyt . ThinPrep prepared and 12 smears. Afirma received Performed By: #### C YTONON #### [facility] CLIA [id number] [address] [place] [address] STATES OF [facility] US THYROID BIOPSY RIGHT (POC ) SURG USE ONLYon 03-16-2025 [facility] CNOVon 03-09-2025 CNOV Office Visit (GENSWS ) HAMLET TEIXEIRA ([id number]) 1985 [facility] Date Time Provider Department 03/09/25 2:45 [...] Alcohol use: (more content not included)... Normal [facility] Thyroidon 02-12-2025 Thyroid [facility] Imaging Services [address] [place] [address] Thyroid MR#: [id number] Acct: [id number] Name: HAMLET TEIXEIRA Rep #: [id number] : 1985 F 39 From: Mateo Rock DO PCP: Dr. Ortega Medrano MD Status: [facility] CL Study: Thyroid Date of Exam: 02/12/25 Exam# [id number] Ordering Dr: Ortega Medrano MD PROCEDURE: THYROID [...] no more than 2 nodules. [facility] CC: Dr. Ortega Medrano MD Information Technology Professor: Signed Normal [facility] Thyroglobulin w/Anti-TG ABon 02-11-2025 Anti-TG AB < 1.0 Normal 0.0-0.9 [facility] Comment on above: Order Comment: Order Date: 02/05/25 Order Info: [id number] - TSIMM Result Comment: Thyr oglobulin Antibody measured by Areli Ayanna Methodology It should be noted that the presence of thyroglobulin antibodies may not be pathogenic nor diagnostic, especially at very low levels. The assay business development analyst has found that four percent of individuals without evidence of thyroid disease or autoimmunity will have positive TgAb levels up to 4 IU/mL. Performed By: #### L 3300.6900, L503.0106, L3300.6820, L506.1001 #### [facility] [address] [place], [place], [address] THYROGLOB QUANT 113.2 ng/mL High 1.5-38.5 [facility] Comment on above: Order Comment: Order Date: 02/05/25 Order Info: [id number] - TSIMM Result Comment: Acco rding to [...] #### L 3300.6900, L503.0106, L3300.6820, L506.1001 #### [facility] [address] [place], [place], [address] Thyroid Peroxidase ABon - THYR PEROX AB < 9 Normal 0-34 [facility] Comment on above: Order Comment: Order Date: 02/05/25 Order Info: [id number] - TSIMM Result Comment: Perf ormed at: [facility] [address] [id number] Manager Division: Kartik Cano MD, Phone: [phone] Performed at: [facility] [address] [id number] Manager Division: Rodrigo Edmondson PhD, Phone: [phone] Performed By: #### L 3300.6900, L503.0106, L3300.6820, L506.1001 #### [facility] [address] [place], [place], [id number] Thyroid Stim Immunoglobon THY STIM IMMUNO <0.10 Normal 0.00-0.55 [facility] Comment on above: Order Comment: Order Date: 02/05/25 Order Info: [id number] - TSIMM Performed By: #### L 3400.4700 #### [facility] [address] [place], [place], [address] Absolute lymphocyte countOrd ered By: Ortega Medrano on 02-05-2025 Lymphocytes Auto (Unsp spec) [#/Vol] 3.19 10*3/uL 0.83-4.51 [facility] Absolute neutrophil countOrd ered By: Ortega Medrano on 02-05-2025 Neutrophils (Bld) [#/Vol] 7.0 10*3/uL 2.0-7.7 [facility] Anion gap in Serum or Plasma Ordered By: Ortega Medrano on 02-05-2025 Anion gap [Moles/Vol] 12 mmol/L 5-15 [facility] Automated lymphocyte count a s percentage of total leukocytesOrdered By: Ortega Medrano on 02-05-2025 Lymphocytes/100 WBC Auto (Unsp spec) 29.0 % 19- [facility] BUN/creatinine ratioOrdered By: Ortega Medrano on 02-05-2025 Urea nitrogen/Creatinine [Mass ratio] 9.1 mg/mg Low 10-20 [facility] Basophil percentageOrdered B y: Ortega Medrano on 02-05-2025 Basophils/100 WBC (Bld) 0.8 % 0- [facility] Bilirubin, totalOrdered By: Ortega Medrano on 02-05-2025 Bilirubin [Mass/Vol] 0.31 mg/dL 0.00-1.30 [facility] CBC W/Diff, Automatedon 01-25 Absolute Lymph 3.19 X10 3/uL Normal 0.83-4.51 [facility] Comment on above: Order Comment: Order Date: 02/05/25 Order Info: 0184-1 - CBCD Performed By: #### L 501.9520, L100.0100, L500.4050, L506.0400 #### [facility] [address] [place], [address] Absolute Neut 7.0 X10 3/uL Normal 2.0-7.7 [facility] Comment on above: Order Comment: Order Date: 02/05/25 Order Info: 0184-1 - CBCD Performed By: #### L 501.9520, L100.0100, L500.4050, L506.0400 #### [facility] [address] [place], [address] Basophils/100 WBC (Bld) 0.8 % Normal 0-1 [facility] Comment on above: Order Comment: Order Date: 02/05/25 Order Info: 0184-1 - CBCD Performed By: #### L 501.9520, L100.0100, L500.4050, L506.0400 #### [facility] [address] [place], [address] Eosinophils/100 WBC (Bld) 0.8 % Normal 0-5 [facility] Comment on above: Order Comment: Order Date: 02/05/25 Order Info: 0184-1 - CBCD Performed By: #### L 501.9520, L100.0100, L500.4050, L506.0400 #### [facility] [address] [place], [address] Erythrocyte distribution width (RBC) [Ratio] 11.9 % Normal 11.6-14.6 [facility] Comment on above: Order Comment: Order Date: 02/05/25 Order Info: 0184-1 - CBCD Performed By: #### L 501.9520, L100.0100, L500.4050, L506.0400 #### [facility] [address] [place], [address] Hematocrit (Bld) [Volume fraction] 39.8 % Normal 37-47 [facility] Comment on above: Order Comment: Order Date: 02/05/25 Order Info: 0184-1 - CBCD Performed By: #### L 501.9520, L100.0100, L500.4050, L506.0400 #### [facility] [address] [place], [address] Hemoglobin (Bld) [Mass/Vol] 13.0 g/dL Normal 12.0-15.0 [facility] Comment on above: Order Comment: Order Date: 02/05/25 Order Info: 0184-1 - CBCD Performed By: #### L 501.9520, L100.0100, L500.4050, L506.0400 #### [facility] [address] [place], [address] IG% 0.400 Normal 0.0-0.9 [facility] Comment on above: Order Comment: Order Date: 02/05/25 Order Info: 0184-1 - CBCD Result Comment: IG% - Immature Granulocytes (promyelocytes, myelocytes and metamyelocytes) > 1% indicates that a LEFT SHIFT is Present. Performed By: #### L 501.9520, L100.0100, L500.4050, L506.0400 #### [facility] [address] [place], [address] Lymphocytes/100 WBC (Bld) 29.0 % Normal 19-41 [facility] Comment on above: Order Comment: Order Date: 02/05/25 Order Info: 0184-1 - CBCD Performed By: #### L 501.9520, L100.0100, L500.4050, L506.0400 #### [facility] [address] [place], [address] MCH (RBC) [Entitic mass] 30.2 pg Normal 27.0-32.0 [facility] Comment on above: Order Comment: Order Date: 02/05/25 Order Info: 0184-1 - CBCD Performed By: #### L 501.9520, L100.0100, L500.4050, L506.0400 #### [facility] [address] [place], [address] MCHC (RBC) [Mass/Vol] 32.7 g/dL Normal 32-36 [facility] Comment on above: Order Comment: Order Date: 02/05/25 Order Info: 0184-1 - CBCD Performed By: #### L 501.9520, L100.0100, L500.4050, L506.0400 #### [facility] [address] [place], [address] MCV (RBC) [Entitic vol] 92.3 fL Normal 81-99 [facility] Comment on above: Order Comment: Order Date: 02/05/25 Order Info: 0184-1 - CBCD Performed By: #### L 501.9520, L100.0100, L500.4050, L506.0400 #### [facility] [address] [place], [address] Monocytes/100 WBC (Bld) 5.7 % Normal 0-10 [facility] Comment on above: Order Comment: Order Date: 02/05/25 Order Info: 0184-1 - CBCD Performed By: #### L 501.9520, L100.0100, L500.4050, L506.0400 #### [facility] [address] [place], [address] Neutrophils/100 WBC (Bld) 63.3 % Normal 47-70 [facility] Comment on above: Order Comment: Order Date: 02/05/25 Order Info: 0184-1 - CBCD Performed By: #### L 501.9520, L100.0100, L500.4050, L506.0400 #### [facility] [address] [place], [address] Nucleated RBC (Bld) [#/Vol] 0 10*3/uL Normal 0-5 [facility] Comment on above: Order Comment: Order Date: 02/05/25 Order Info: 0184-1 - CBCD Performed By: #### L 501.9520, L100.0100, L500.4050, L506.0400 #### [facility] [address] [place], [address] Platelet mean volume (Bld) [Entitic vol] 9.2 fL Normal 6.2-12.0 [facility] Comment on above: Order Comment: Order Date: 02/05/25 Order Info: 018- - CBCD Performed By: #### L 501.9520, L100.0100, L500.4050, L506.0400 #### [facility] [address] [place], [address] Platelets (Bld) [#/Vol] 382 10*3/uL Normal 150-450 [facility] Comment on above: Order Comment: Order Date: 02/05/25 Order Info: 018- - CBCD Performed By: #### L 501.9520, L100.0100, L500.4050, L506.0400 #### [facility] [address] [place], [address] RBC (Bld) [#/Vol] 4.31 10*6/uL Normal 4.2-5.4 [facility] Comment on above: Order Comment: Order Date: 02/05/25 Order Info: 0184-1 - CBCD Performed By: #### L 501.9520, L100.0100, L500.4050, L506.0400 #### [facility] [address] [place], [address] RDW SD 40.4 fl Normal 35.1-43.9 [facility] Comment on above: Order Comment: Order Date: 02/05/25 Order Info: 0184-1 - CBCD Performed By: #### L 501.9520, L100.0100, L500.4050, L506.0400 #### [facility] [address] [place], [address] WBC (Bld) [#/Vol] 11.0 10*3/uL Normal 4.4-11.0 [facility] Comment on above: Order Comment: Order Date: 02/05/25 Order Info: 0184- - CBCD Performed By: #### L 501.9520, L100.0100, L500.4050, L506.0400 #### [facility] [address] [place], [address] Calculated very low density lipoprotein (VLDL) cholesterol measurementOrdered By: Ortega Medrano on 02-05-2025 Calculated very low density lipoprotein (VLDL) cholesterol measurement 59 mg/dL High 5-40 [facility] Carbon dioxide, total [Moles /volume] in Central venous bloodOrdered By: Ortega Medrano on 02-05-2025 CO2 [Moles/Vol] 21.7 mmol/L 21.0-32.0 [facility] Chloride assayOrdered By: Lidia Medrano on 02-05-2025 Chloride [Moles/Vol] 105 mmol/L 98-108 [facility] Comprehensive Metabolic Prof ilon 02-05-2025 Albumin [Mass/Vol] 4.2 g/dL Normal 3.5-5.0 [facility] Comment on above: Order Comment: Order Date: 02/05/25 Order Info: [id number] - CMP Order Info: 27530-1 - LIPID Order Info: [id number] - TSH Order Info: 3024-7 - T4F Performed By: #### L 501.9520, L100.0100, L500.4050, L506.0400 #### [facility] [address] [place], [address] Albumin/Globulin [Mass ratio] 1.4 {ratio} Normal 0.9-2.4 [facility] Comment on above: Order Comment: Order Date: 02/05/25 Order Info: [id number] - CMP Order Info: [id number] - LIPID Order Info: 3 - TSH Order Info: 7 - T4F Performed By: #### L 501.9520, L100.0100, L500.4050, L506.0400 #### [facility] [address] [place], [address] ALK PHOS 62 U/L Normal 35-104 [facility] Comment on above: Order Comment: Order Date: 02/05/25 Order Info: [id number] - CMP Order Info: - LIPID Order Info: 3 - TSH Order Info: 7 - T4F Performed By: #### L 501.9520, L100.0100, L500.4050, L506.0400 #### [facility] [address] [place], [address] ALT [Catalytic activity/Vol] 12 U/L Normal <=34 [facility] Comment on above: Order Comment: Order Date: 02/05/25 Order Info: [id number] - CMP Order Info: [id number] - LIPID Order Info: 3 - TSH Order Info: 7 - T4F Performed By: #### L 501.9520, L100.0100, L500.4050, L506.0400 #### [facility] [address] [place], [address] AST [Catalytic activity/Vol] 16 U/L Normal <=31 [facility] Comment on above: Order Comment: Order Date: 02/05/25 Order Info: 07-1 - CMP Order Info: [id number] - LIPID Order Info: 3 - TSH Order Info: [id number] - T4F Performed By: #### L 501.9520, L100.0100, L500.4050, L506.0400 #### [facility] [address] [place], [address] Bilirubin [Mass/Vol] 0.31 mg/dL Normal 0.00-1.30 [facility] Comment on above: Order Comment: Order Date: 02/05/25 Order Info: [id number] - CMP Order Info: [id number] - LIPID Order Info: [id number] - TSH Order Info: 3024-7 - T4F Performed By: #### L 501.9520, L100.0100, L500.4050, L506.0400 #### [facility] [address] [place], [address] BUN/CRE 9.1 RATIO Low 10-20 [facility] Comment on above: Order Comment: Order Date: 02/05/25 Order Info: [id number] - CMP Order Info: [id number] - LIPID Order Info: 3 - TSH Order Info: 3024-7 - T4F Performed By: #### L 501.9520, L100.0100, L500.4050, L506.0400 #### [facility] [address] [place], [address] Calcium [Mass/Vol] 9.6 mg/dL Normal 7.6-11.0 [facility] Comment on above: Order Comment: Order Date: 02/05/25 Order Info: [id number] - CMP Order Info: [id number] - LIPID Order Info: 3 - TSH Order Info: [id number] - T4F Performed By: #### L 501.9520, L100.0100, L500.4050, L506.0400 #### [facility] [address] [place], [address] Chloride [Moles/Vol] 105 mmol/L Normal 98-108 [facility] Comment on above: Order Comment: Order Date: 02/05/25 Order Info: [id number] - CMP Order Info: [id number] - LIPID Order Info: [id number] - TSH Order Info: 3024-7 - T4F Performed By: #### L 501.9520, L100.0100, L500.4050, L506.0400 #### [facility] [address] [place], [address] CO2 [Moles/Vol] 21.7 mmol/L Normal 21.0-32.0 [facility] Comment on above: Order Comment: Order Date: 02/05/25 Order Info: [id number] - CMP Order Info: [id number] - LIPID Order Info: [id number] - TSH Order Info: 3024-7 - T4F Performed By: #### L 501.9520, L100.0100, L500.4050, L506.0400 #### [facility] [address] [place], [address] Creatinine [Mass/Vol] 0.82 mg/dL Normal 0.70-1.20 [facility] Comment on above: Order Comment: Order Date: 02/05/25 Order Info: [id number] - CMP Order Info: [id number] - LIPID Order Info: [id number] - TSH Order Info: 3024-7 - T4F Performed By: #### L 501.9520, L100.0100, L500.4050, L506.0400 #### [facility] [address] [place], [address] GAP 12 Normal 5-15 [facility] Comment on above: Order Comment: Order Date: 02/05/25 Order Info: [id number] - CMP Order Info: [id number] - LIPID Order Info: [id number] - TSH Order Info: 3024-7 - T4F Performed By: #### L 501.9520, L100.0100, L500.4050, L506.0400 #### [facility] [address] [place], [address] GFR/1.73 sq M.predicted among non-blacks MDRD (S/P/Bld) [Vol rate/Area] 94 mL/min/{1.73_m2} Normal >60 [facility] Comment on above: Order Comment: Order Date: 02/05/25 Order Info: 86-1 - CMP Order Info: [id number] - LIPID Order Info: [id number] - TSH Order Info: 3024-7 - T4F Result Comment: mL/m in/1.73m2 CKD-EPI Creatinine Equation (2020) Performed By: #### L 501.9520, L100.0100, L500.4050, L506.0400 #### [facility] [address] [place], [address] Globulin (S) [Mass/Vol] 2.9 g/dL Normal 2.2-4.2 [facility] Comment on above: Order Comment: Order Date: 02/05/25 Order Info: [id number] - CMP Order Info: [id number] - LIPID Order Info: 3 - TSH Order Info: 3024-7 - T4F Performed By: #### L 501.9520, L100.0100, L500.4050, L506.0400 #### [facility] [address] [place], [address] Glucose [Mass/Vol] 93 mg/dL Normal 70-99 [facility] Comment on above: Order Comment: Order Date: 02/05/25 Order Info: [id number] - CMP Order Info: [id number] - LIPID Order Info: [id number] - TSH Order Info: 3024-7 - T4F Performed By: #### L 501.9520, L100.0100, L500.4050, L506.0400 #### [facility] [address] [place], [address] Potassium [Moles/Vol] 4.1 mmol/L Normal 3.3-5.1 [facility] Comment on above: Order Comment: Order Date: 02/05/25 Order Info: 86-1 - CMP Order Info: [id number] - LIPID Order Info: [id number] - TSH Order Info: 3024-7 - T4F Performed By: #### L 501.9520, L100.0100, L500.4050, L506.0400 #### [facility] [address] [place], [address] Sodium [Moles/Vol] 138 mmol/L Normal 133-145 [facility] Comment on above: Order Comment: Order Date: 02/05/25 Order Info: [id number] - CMP Order Info: [id number] - LIPID Order Info: [id number] - TSH Order Info: 3024-7 - T4F Performed By: #### L 501.9520, L100.0100, L500.4050, L506.0400 #### [facility] [address] [place], [address] T PROT 7.2 g/dL Normal 5.9-8.4 [facility] Comment on above: Order Comment: Order Date: 02/05/25 Order Info: [id number]- - CMP Order Info: [id number] - LIPID Order Info: 3 - TSH Order Info: [id number] - T4F Performed By: #### L 501.9520, L100.0100, L500.4050, L506.0400 #### [facility] [address] [place], [address] Urea nitrogen [Mass/Vol] 7 mg/dL Normal 4-19 [facility] Comment on above: Order Comment: Order Date: 02/05/25 Order Info: [id number] - CMP Order Info: [id number] - LIPID Order Info: [id number] - TSH Order Info: [id number] - T4F Performed By: #### L 501.9520, L100.0100, L500.4050, L506.0400 #### [facility] [address] [place], [address] Eosinophil percentageOrdered By: Ortega Medrano on 02-05-2025 Eosinophils/100 WBC (Bld) 0.8 % 0-5 [facility] Erythrocyte distribution wid th ratioOrdered By: Ortega Medrano on 02-05-2025 Erythrocyte distribution width (RBC) [Ratio] 11.9 % 11.6-14.6 [facility] Erythrocyte distribution wid th standard deviationOrdered By: Ortega Medrano on 02-05-2025 Erythrocyte distribution width (RBC) [Ratio] 40.4 fl 35.1-43.9 [facility] Glomerular filtration rate ( GFR) estimation/1.73 sq m using serum, plasma, or whole bOrdered By: Orteag Medrano on 02-05-2025 GFR/1.73 sq M.predicted among non-blacks MDRD (S/P/Bld) [Vol rate/Area] 94 mL/min/{1.73_m2} >60 [facility] Comment on above: mL/min/1.73m2 CKD-EP I Creatinine Equation (2020) Hematocrit Auto (Bld) [Volum e fraction]Ordered By: Ortega Medrano on 02-05-2025 Hematocrit (Bld) [Volume fraction] 39.8 % 37-47 [facility] Hemoglobin measurementOrdere d By: Ortega Medrano on 02-05-2025 Hemoglobin (Bld) [Mass/Vol] 13.0 g/dL 12.0-15.0 [facility] Immature granulocytes/100 WB C Auto (Bld)Ordered By: Ortega Medrano on 02-05-2025 Immature granulocytes/100 WBC (Bld) 0.400 % 0.0-0.9 [facility] Comment on above: IG% - Immature Granu locytes (promyelocytes, myelocytes and metamyelocytes) > 1% indicates that a LEFT SHIFT is Present. LDL calc ser/plasOrdered By: Ortega Medrano on 02-05-2025 Cholesterol in LDL [Mass/Vol] 111 mg/dL [facility] Comment on above: Meonjznzxb=741-198 m g/dL & Higher Mhww=898 mg/dL or greater Laboratory - Chemistry and C hemistry - challengeOrdered By: Ortega Medrano on 02-05-2025 AST [Catalytic activity/Vol] 16 U/L <32 [facility] Lipid Profileon 02-05-2025 CHOL:HDL 4.76 Normal [facility] Comment on above: Order Comment: Order Date: 02/05/25Order Info: [id number] - CMPOrder Info: [id number] - LIPIDOrder Info: 6-3 - TSHOrder Info: 7 - T4F Performed By: #### L 400.7600 #### [facility] [address] [place], [address] Cholesterol [Mass/Vol] 215 mg/dL High <=200 [facility] Comment on above: Order Comment: Order Date: 02/05/25Order Info: [id number] - CMPOrder Info: [id number] - LIPIDOrder Info: [id number] - TSHOrder Info: 7 - T4F Result Comment: Chol esterol level, Desirable <200 mg/dL Borderline high cholesterol 200-239 mg/dL High cholesterol >=240 mg/dL Recommendations of the NCEP Adult Treatment Panel for the following risk-cutoff thresholds for the [place] population. Performed By: #### L 400.7600 #### [facility] [address] [place], [address] Cholesterol in HDL [Mass/Vol] 45 mg/dL Normal [facility] Comment on above: Order Comment: Order Date: 02/05/25Order Info: [id number] - CMPOrder Info: [id number] - LIPIDOrder Info: 3 - TSHOrder Info: [id number] - T4F Result Comment: Liyah onal Cholesterol Education Program (NCEP) guidelines: <40 mg/dL: Low HDL-cholesterol (major risk factor for CHD) >= 60 mg/dL: High HDL-cholesterol (negative risk factor for CHD) HDL-cholesterol is affected by a number of factors, e.g. smoking, exercise, hormones, sex and age. Performed By: #### L 400.7600 #### [facility] [address] [place], [address] Cholesterol in LDL [Mass/Vol] 111 mg/dL Normal [facility] Comment on above: Order Comment: Order Date: 02/05/25Order Info: [id number] - CMPOrder Info: [id number] - LIPIDOrder Info: [id number] - TSHOrder Info: [id number] - T4F Result Comment: Bord xfatxl=582-211 mg/dL Higher Hpah=341 mg/dL or greater Performed By: #### L 400.7600 #### [facility] [address] [place], [address] Cholesterol in VLDL [Mass/Vol] 59 mg/dL High 5-40 [facility] Comment on above: Order Comment: Order Date: 02/05/25Order Info: [id number] - CMPOrder Info: [id number] - LIPIDOrder Info: [id number] - TSHOrder Info: [id number] - T4F Performed By: #### L 400.7600 #### [facility] [address] [place], [address] Triglyceride [Mass/Vol] 293 mg/dL High [facility] Comment on above: Order Comment: Order Date: 02/05/25Order Info: [id number] - CMPOrder Info: [id number] - LIPIDOrder Info: [id number] - TSHOrder Info: [id number] - T4F Result Comment: The drugs N-Acetylcysteine and Metamizole may falsely depress this assay. Normal range: <150 mg/dL Borderline High: 150-199 mg/dL High: 200-499 mg/dL Very High: >500 mg/dL Performed By: #### L 400.7600 #### [facility] [address] [place], [address] MCV (mean corpuscular volume ) determinationOrdered By: Ortega Medrano on 02-05-2025 MCV (RBC) [Entitic vol] 92.3 fL 81-99 [facility] Mean corpuscular hemoglobin (MCH) determinationOrdered By: Ortega Medrano on 02-05-2025 MCH (RBC) [Entitic mass] 30.2 pg 27.0-32.0 [facility] Mean corpuscular hemoglobin concentration (MCHC) determinationOrdered By: Ortega Medrano on 02-05-2025 MCHC (RBC) [Mass/Vol] 32.7 g/dL 32-36 [facility] Mean platelet volume determi nationOrdered By: Ortega Medrano on 02-05-2025 Platelet mean volume (Bld) [Entitic vol] 9.2 fL 6.2-12.0 [facility] Monocyte percentageOrdered B y: Ortega Medrano on 02-05-2025 Monocytes/100 WBC (Bld) 5.7 % 0-10 [facility] Neutrophil percentageOrdered By: Ortega Medrano on 02-05-2025 Neutrophils/100 WBC (Bld) 63.3 % 47-70 [facility] Nucleated red blood cell per centageOrdered By: Ortega Medrano on 02-05-2025 Nucleated RBC/100 WBC (Bld) [Ratio] 0 % 0-5 [facility] Platelet countOrdered By: Lidia Medrano on 02-05-2025 Platelets (Bld) [#/Vol] 382 10*3/uL 150-450 [facility] Potassium measurement (mass/ volume)Ordered By: Ortega Medrano on 02-05-2025 Potassium (Unsp spec) [Mass/Vol] 4.1 mmol/L 3.3-5.1 [facility] RBC Auto (Bld) [#/Vol]Ordere d By: Ortega Medrano on 02-05-2025 RBC (Bld) [#/Vol] 4.31 10*6/uL 4.2-5.4 [facility] Screening total cholesterol/ high density lipoprotein (HDL) cholesterol ratioOrdered By: Ortega Medrano on 02-05-2025 Cholesterol.total/Cho lesterol in HDL [Mass ratio] 4.76 {ratio} [facility] Serum creatinine measurement (mass/volume)Ordered By: Ortega Medrano on 02-05-2025 Creatinine [Mass/Vol] 0.82 mg/dL 0.70-1.20 [facility] Serum globulin measurementOr dered By: Ortega Medrano on 02-05-2025 Globulin (S) [Mass/Vol] 2.9 g/dL 2.2-4.2 [facility] Serum glucose measurement (m ass/volume)Ordered By: Ortega Medrano on 02-05-2025 Glucose [Mass/Vol] 93 mg/dL 70-99 [facility] Serum or plasma alanine gorman otransferase (ALT) measurementOrdered By: Ortega Medrano on 02-05-2025 ALT [Catalytic activity/Vol] 12 U/L <35 [facility] Serum or plasma albumin harry urement (mass/volume)Ordered By: Ortega Medrano on 02-05-2025 Albumin [Mass/Vol] 4.2 g/dL 3.5-5.0 [facility] Serum or plasma albumin/glob ulin mass ratioOrdered By: Ortega Medrano on 02-05-2025 Albumin/Globulin [Mass ratio] 1.4 {ratio} 0.9-2.4 [facility] Serum or plasma alkaline domi sphatase measurementOrdered By: Ortega Medrano on 02-05-2025 ALP [Catalytic activity/Vol] 62 U/L 35-104 [facility] Serum or plasma calcium harry urement (mass/volume)Ordered By: Ortega Medrano on 02-05-2025 Calcium [Mass/Vol] 9.6 mg/dL 7.6-11.0 [facility] Serum or plasma cholesterol in HDL measurement (mass/volume)Ordered By: Ortega Medrano on 02-05-2025 Cholesterol in HDL [Mass/Vol] 45 mg/dL >40 [facility] Comment on above: National Cholesterol Education Program (NCEP) guidelines:<40 mg/dL: Low HDL-cholesterol (major risk factor for CHD)>= 60 mg/dL: High HDL-cholesterol (negative risk factor for CHD)HDL-cholesterol is affected by a number of factors, e.g. smoking, exercise, hormones, sex and age. Serum or plasma cholesterol measurement (mass/volume)Ordered By: Ortega Medrano on 02-05-2025 Cholesterol [Mass/Vol] 215 mg/dL High <201 [facility] Comment on above: Cholesterol level, D esirable <200 mg/dLBorderline high cholesterol 200-239 mg/dLHigh cholesterol >=240 mg/dLRecommendations of the NCEP Adult Treatment Panel for the following risk-cutoff thresholds for the [place] population. Serum or plasma thyroperoxid ase antibody assay (units/volume)Ordered By: Ortega Medrano on 02-05-2025 TPO Ab Qn [IU]/mL 0-34 [facility] Comment on above: Performed at: [address] [id number] Director: Kartik Cano MD, Phone: [phone] at: CB - [facility] [address] [id number] Director: Rodrigo Edmondson PhD, Phone: [phone] Serum or plasma urea nitroge n measurement (mass/volume)Ordered By: Ortega Medrano on 02-05-2025 Urea nitrogen [Mass/Vol] 7 mg/dL 4-19 [facility] Sodium levelOrdered By: Ortega Medrano on 02-05-2025 Sodium [Moles/Vol] 138 mmol/L 133-145 [facility] T4 Free Directon 02-05-2025 T4 FREE DIRECT 1.00 ng/dL Normal 0.76-1.46 [facility] Comment on above: Order Comment: Order Date: 02/05/25Order Info: [id number] - CMPOrder Info: [id number] - LIPIDOrder Info: 3 - TSHOrder Info: [id number] - T4F Performed By: #### L 400.7600 #### [facility] [address] [place], [place], [address] T4 freeOrdered By: Ortega doran on 02-05-2025 Free T4 [Mass/Vol] 1.00 ng/dL 0.76-1.46 [facility] TSH DL <= 0.005 mIU/L QnOrde red By: Ortega Medrano on 02-05-2025 TSH Qn 1.840 uIU/mL 0.300-4.20 0 [facility] Thyroid Stim Hormone (TSH)on 02-05-2025 TSH 1.840 uIU/mL Normal 0.300-4.20 0 [facility] Comment on above: Order Comment: Order Date: 02/05/25Order Info: [id number] - CMPOrder Info: [id number] - LIPIDOrder Info: 3 - TSHOrder Info: [id number] - T4F Performed By: #### L 400.7600 #### [facility] [address] [place], [place], [id number] Thyroid stimulating immunogl obulins detectionOrdered By: Ortega Medrano on 02-05-2025 Thyroid stimulating immunoglobulins Ql (S) <0.10 IU/L 0.00-0.55 [facility] Total proteinOrdered By: Jose Medrano on 02-05-2025 Protein [Mass/Vol] 7.2 g/dL 5.9-8.4 [facility] Triglycerides measurementOrd ered By: Ortega Medrano on 02-05-2025 Triglyceride [Mass/Vol] 293 mg/dL High <199 [facility] Comment on above: The drugs N-Acetylcy steine and Metamizole may falsely depress this assay. Normal range: <150 mg/dLBorderline High: 150-199 mg/dLHigh: 200-499 mg/dLVery High: >500 mg/dL Vitamin B12on 02-05-2025 Cobalamin (Vitamin B12) [Mass/Vol] 356 pg/mL Normal 180-914 [facility] Comment on above: Order Comment: Order Date: 02/05/25 Order Info: [id number] - CMP Order Info: [id number] - LIPID Order Info: [id number] - TSH Order Info: [id number] - T4F Performed By: #### L 3300.6900, L503.0106, L3300.6820, L506.1001 #### [facility] [address] [place], [place], [address] Vitamin B12 ser/plasOrdered By: Ortega Medrano on 02-05-2025 Cobalamin (Vitamin B12) [Mass/Vol] 356 pg/mL 180-914 [facility] Vitamin D,25 Hydroxyon 02-05 Vitamin D 25-OH 35.6 ng/mL Normal 30-100 [facility] Comment on above: Order Comment: Order Date: 02/05/25 Order Info: [id number] - CMP Order Info: [id number] - LIPID Order Info: 3 - TSH Order Info: 7 - T4F Result Comment: Luba min D Status Deficiency: <20 ng/mL (50nmol/L) Insufficiency: 20-30 ng/mL (50-75 nmol/L) Sufficiency: 30-100 ng/mL (75-250 nmol/L) Toxicity: >100 ng/mL (>250 nmol/L) Performed By: #### L 3300.6900, L503.0106, L3300.6820, L506.1001 #### [facility] [address] [place], [address] White blood cell (WBC) count Ordered By: Ortega Medrano on 02-05-2025 WBC (Bld) [#/Vol] 11.0 10*3/uL 4.4-11.0 [facility] Absolute lymphocyte countOrd ered By: HEALTH ASSESSMENT on 11-15-2024 Lymphocytes Auto (Unsp spec) [#/Vol] 2.85 10*3/uL 0.83-4.51 [facility] Absolute neutrophil countOrd ered By: HEALTH ASSESSMENT on 11-15-2024 Neutrophils (Bld) [#/Vol] 5.7 10*3/uL 2.0-7.7 [facility] Absolute nucleated red blood cell countOrdered By: HEALTH ASSESSMENT on 11-15-2024 Nucleated RBC (Bld) [#/Vol] 0.00 10*3/uL 0-5 [facility] Anion gap in Serum or Plasma Ordered By: HEALTH ASSESSMENT on 11-15-2024 Anion gap [Moles/Vol] 9 mmol/L 5-15 [facility] BUN/creatinine ratioOrdered By: HEALTH ASSESSMENT on 11-15-2024 Urea nitrogen/Creatinine [Mass ratio] 14.5 mg/mg 10-20 [facility] Bilirubin directOrdered By: HEALTH ASSESSMENT on 11-15-2024 Bilirubin.direct [Mass/Vol] 0.14 mg/dL 0.00-0.30 [facility] Bilirubin, totalOrdered By: HEALTH ASSESSMENT on 11-15-2024 Bilirubin [Mass/Vol] 0.37 mg/dL 0.00-1.30 [facility] Blood band neutrophil count as percentage of total leukocytesOrdered By: HEALTH ASSESSMENT on 11-15-2024 Band form neutrophils/100 WBC (Bld) 61.9 % 47-70 [facility] CBC, Employeeon 11-15-2024 Absolute Lymph 2.85 X10 3/uL Normal 0.83-4.51 [facility] Comment on above: Performed By: #### L 400.7600 #### [facility] [address] [place], [address] Absolute Neut 5.7 X10 3/uL Normal 2.0-7.7 [facility] Comment on above: Performed By: #### L 400.7600 #### [facility] [address] [place], [address] Basophils/100 WBC (Bld) 0.8 % Normal 0-1 [facility] Comment on above: Performed By: #### L 400.7600 #### [facility] [address] [place], [address] Eosinophils/100 WBC (Bld) 1.4 % Normal 0-5 [facility] Comment on above: Performed By: #### L 400.7600 #### [facility] [address] [place], [address] Erythrocyte distribution width (RBC) [Ratio] 12.1 % Normal 11.6-14.6 [facility] Comment on above: Performed By: #### L 400.7600 #### [facility] [address] [place], [address] Hematocrit (Bld) [Volume fraction] 39.9 % Normal 37-47 [facility] Comment on above: Performed By: #### L 400.7600 #### [facility] [address] [place], [address] Hemoglobin (Bld) [Mass/Vol] 13.2 g/dL Normal 12.0-15.0 [facility] Comment on above: Performed By: #### L 400.7600 #### [facility] [address] [place], [address] Lymphocytes/100 WBC (Bld) 30.9 % Normal 19-41 [facility] Comment on above: Performed By: #### L 400.7600 #### [facility] [address] [place], [address] MCH (RBC) [Entitic mass] 30.6 pg Normal 27.0-32.0 [facility] Comment on above: Performed By: #### L 400.7600 #### [facility] [address] [place], [address] MCHC (RBC) [Mass/Vol] 33.1 g/dL Normal 32-36 [facility] Comment on above: Performed By: #### L 400.7600 #### [facility] [address] [place], [address] MCV (RBC) [Entitic vol] 92.4 fL Normal 81-99 [facility] Comment on above: Performed By: #### L 400.7600 #### [facility] [address] [place], [address] Monocytes/100 WBC (Bld) 4.7 % Normal 0-10 [facility] Comment on above: Performed By: #### L 400.7600 #### [facility] [address] [place], [address] Neutrophils/100 WBC (Bld) 61.9 % Normal 47-70 [facility] Comment on above: Performed By: #### L 400.7600 #### [facility] [address] [place], [address] NRBC # 0.00 10 3/uL Normal 0-5 [facility] Comment on above: Performed By: #### L 400.7600 #### [facility] [address] [place], [address] Nucleated RBC (Bld) [#/Vol] 0 10*3/uL Normal 0-5 [facility] Comment on above: Performed By: #### L 400.7600 #### [facility] [address] [place], [address] Platelet mean volume (Bld) [Entitic vol] 8.8 fL Normal 6.2-12.0 [facility] Comment on above: Performed By: #### L 400.7600 #### [facility] [address] [place], [address] Platelets (Bld) [#/Vol] 354 10*3/uL Normal 150-450 [facility] Comment on above: Performed By: #### L 400.7600 #### [facility] [address] [place], [address] RBC (Bld) [#/Vol] 4.32 10*6/uL Normal 4.2-5.4 [facility] Comment on above: Performed By: #### L 400.7600 #### [facility] [address] [place], [address] RDW SD 41.0 fl Normal 35.1-43.9 [facility] Comment on above: Performed By: #### L 400.7600 #### [facility] [address] [place], [address] WBC (Bld) [#/Vol] 9.2 10*3/uL Normal 4.4-11.0 [facility] Comment on above: Performed By: #### L 400.7600 #### [facility] [address] [place], [address] Calculated very low density lipoprotein (VLDL) cholesterol measurementOrdered By: HEALTH ASSESSMENT on 11-15-2024 Calculated very low density lipoprotein (VLDL) cholesterol measurement 41 mg/dL High 5-40 [facility] Carbon dioxide, total [Moles /volume] in Central venous bloodOrdered By: HEALTH ASSESSMENT on 11-15-2024 CO2 [Moles/Vol] 23.0 mmol/L 21.0-32.0 [facility] Chloride assayOrdered By: HE ALTH ASSESSMENT on 11-15-2024 Chloride [Moles/Vol] 106 mmol/L 98-108 [facility] Employee Profileon Cholesterol in LDL [Mass/Vol] 133 mg/dL High 0-130 [facility] Comment on above: Performed By: #### L 400.7600 #### [facility] [address] [place], [address] Erythrocyte distribution wid th ratioOrdered By: HEALTH ASSESSMENT on 11-15-2024 Erythrocyte distribution width (RBC) [Ratio] 12.1 % 11.6-14.6 [facility] Erythrocyte distribution wid th standard deviationOrdered By: HEALTH ASSESSMENT on 11-15-2024 Erythrocyte distribution width (RBC) [Ratio] 41.0 fl 35.1-43.9 [facility] Glomerular filtration rate ( GFR) estimation/1.73 sq m using serum, plasma, or whole bOrdered By: HEALTH ASSESSMENT on 11-15-2024 GFR/1.73 sq M.predicted among non-blacks MDRD (S/P/Bld) [Vol rate/Area] 95 mL/min/{1.73_m2} >60 [facility] Comment on above: mL/min/1.73m2 CKD-EP I Creatinine Equation (2020) Hematocrit Auto (Bld) [Volum e fraction]Ordered By: HEALTH ASSESSMENT on 11-15-2024 Hematocrit (Bld) [Volume fraction] 39.9 % 37-47 [facility] Hemoglobin measurementOrdere d By: HEALTH ASSESSMENT on 11-15-2024 Hemoglobin (Bld) [Mass/Vol] 13.2 g/dL 12.0-15.0 [facility] - Chemistry and C hemistry - challengeOrdered By: HEALTH ASSESSMENT on 11-15-2024 AST [Catalytic activity/Vol] 12 U/L <32 [facility] Lactate dehydrogenase (LDH) measurementOrdered By: HEALTH ASSESSMENT on 11-15-2024 LDH [Catalytic activity/Vol] 168 U/L 84-246 [facility] Low density lipoprotein (LDL ) cholesterol measurementOrdered By: HEALTH ASSESSMENT on 11-15-2024 Cholesterol in LDL [Mass/Vol] 133 mg/dL High 0-130 [facility] MCV (mean corpuscular volume ) determinationOrdered By: HEALTH ASSESSMENT on 11-15-2024 MCV (RBC) [Entitic vol] 92.4 fL 81-99 [facility] Mean corpuscular hemoglobin (MCH) determinationOrdered By: HEALTH ASSESSMENT on 11-15-2024 MCH (RBC) [Entitic mass] 30.6 pg 27.0-32.0 [facility] Mean corpuscular hemoglobin concentration (MCHC) determinationOrdered By: HEALTH ASSESSMENT on 11-15-2024 MCHC (RBC) [Mass/Vol] 33.1 g/dL 32-36 [facility] Mean platelet volume determi nationOrdered By: HEALTH ASSESSMENT on 11-15-2024 Platelet mean volume (Bld) [Entitic vol] 8.8 fL 6.2-12.0 [facility] Nucleated red blood cell per centageOrdered By: HEALTH ASSESSMENT on 11-15-2024 Nucleated RBC/100 WBC (Bld) [Ratio] 0 % 0-5 [facility] Platelet countOrdered By: HE ALTH ASSESSMENT on 11-15-2024 Platelets (Bld) [#/Vol] 354 10*3/uL 150-450 [facility] Potassium measurement (mass/ volume)Ordered By: HEALTH ASSESSMENT on 11-15-2024 Potassium (Unsp spec) [Mass/Vol] 4.3 mmol/L 3.3-5.1 [facility] RBC Auto (Bld) [#/Vol]Ordere d By: HEALTH ASSESSMENT on 11-15-2024 RBC (Bld) [#/Vol] 4.32 10*6/uL 4.2-5.4 [facility] Screening total cholesterol/ high density lipoprotein (HDL) cholesterol ratioOrdered By: HEALTH ASSESSMENT on 11-15-2024 Cholesterol.total/Cho lesterol in HDL [Mass ratio] 4.65 {ratio} [facility] Serum creatinine measurement (mass/volume)Ordered By: HEALTH ASSESSMENT on 11-15-2024 Creatinine [Mass/Vol] 0.82 mg/dL 0.70-1.20 [facility] Serum globulin measurementOr dered By: HEALTH ASSESSMENT on 11-15-2024 Globulin (S) [Mass/Vol] 2.9 g/dL 2.2-4.2 [facility] Serum glucose measurement (m ass/volume)Ordered By: HEALTH ASSESSMENT on 11-15-2024 Glucose [Mass/Vol] 98 mg/dL 70-99 [facility] Serum or plasma alanine gorman otransferase (ALT) measurementOrdered By: HEALTH ASSESSMENT on 11-15-2024 ALT [Catalytic activity/Vol] 8 U/L <35 [facility] Serum or plasma albumin harry urement (mass/volume)Ordered By: HEALTH ASSESSMENT on 11-15-2024 Albumin [Mass/Vol] 4.0 g/dL 3.5-5.0 [facility] Serum or plasma albumin/glob ulin mass ratioOrdered By: HEALTH ASSESSMENT on 11-15-2024 Albumin/Globulin [Mass ratio] 1.4 {ratio} 0.9-2.4 [facility] Serum or plasma alkaline domi sphatase measurementOrdered By: HEALTH ASSESSMENT on 11-15-2024 ALP [Catalytic activity/Vol] 58 U/L 35-104 [facility] Serum or plasma calcium harry urement (mass/volume)Ordered By: HEALTH ASSESSMENT on 11-15-2024 Calcium [Mass/Vol] 9.0 mg/dL 7.6-11.0 [facility] Serum or plasma cholesterol in HDL measurement (mass/volume)Ordered By: HEALTH ASSESSMENT on 11-15-2024 Cholesterol in HDL [Mass/Vol] 48 mg/dL >40 [facility] Comment on above: National Cholesterol Education Program (NCEP) guidelines:<40 mg/dL: Low HDL-cholesterol (major risk factor for CHD)>= 60 mg/dL: High HDL-cholesterol (negative risk factor for CHD)HDL-cholesterol is affected by a number of factors, e.g. smoking, exercise, hormones, sex and age. Serum or plasma cholesterol measurement (mass/volume)Ordered By: HEALTH ASSESSMENT on 11-15-2024 Cholesterol [Mass/Vol] 222 mg/dL High <201 [facility] Comment on above: Cholesterol level, D esirable <200 mg/dLBorderline high cholesterol 200-239 mg/dLHigh cholesterol >=240 mg/dLRecommendations of the NCEP Adult Treatment Panel for the following risk-cutoff thresholds for the [place] population. Serum or plasma urea nitroge n measurement (mass/volume)Ordered By: HEALTH ASSESSMENT on 11-15-2024 Urea nitrogen [Mass/Vol] 12 mg/dL 4-19 [facility] Serum or plasma uric acid me asurement (mass/volume)Ordered By: HEALTH ASSESSMENT on 11-15-2024 Urate [Mass/Vol] 3.9 mg/dL 2.6-6.0 [facility] Comment on above: The drugs N-Acetylcy steine and Metamizole may falsely depress this assay. Sodium levelOrdered By: [facility] ASSESSMENT on 11-15-2024 Sodium [Moles/Vol] 138 mmol/L 133-145 [facility] Total proteinOrdered By: A [facility] ASSESSMENT on 11-15-2024 Protein [Mass/Vol] 6.9 g/dL 5.9-8.4 [facility] Triglycerides measurementOrd ered By: [facility] ASSESSMENT on 11-15-2024 Triglyceride [Mass/Vol] 207 mg/dL High <199 [facility] Comment on above: The drugs N-Acetylcy steine and Metamizole may falsely depress this assay. Normal range: <150 mg/dLBorderline High: 150-199 mg/dLHigh: 200-499 mg/dLVery High: >500 mg/dL White blood cell (WBC) count Ordered By: HEALTH ASSESSMENT on 11-15-2024 WBC (Bld) [#/Vol] 9.2 10*3/uL 4.4-11.0 [facility] Quantiferon TB-Gold+on 10-30 QFT MITOGEN GERBER > 10.00 Normal . [facility] Comment on above: Order Comment: REDRA W Performed By: #### L 400.7600 #### [facility] [address] [place], [place], [address] QFT NIL VALUE 0.08 IU/mL Normal . [facility] Comment on above: Order Comment: REDRA W Performed By: #### L 400.7600 #### [facility] [address] [place], [place], [address] QFT TB GOLD+ Comment Normal . [facility] Comment on above: Order Comment: REDRA W [...] test. Performed By: #### L 400.7600 #### [facility] [address] [place], [address] QFT TB POS CRIT Negative Normal Negative [facility] Comment on above: Order Comment: REDRA W [...] interferon gamma. Chemiluminescence immunoassay methodology Performed at: [employer] [id number] Manager Division: Rodrigo Edmondson PhD, Phone: [phone] Performed By: #### L 400.7600 #### [facility] [address] [place], [address] QFT TB1+ AG GERBER 0.16 IU/mL Normal . [facility] Comment on above: Order Comment: REDRA W Performed By: #### L 400.7600 #### [facility] [address] [place] [id number] QFT TB2+ AG GERBER 0.18 IU/mL Normal . [facility] Comment on above: Order Comment: REDRA W Performed By: #### L 400.7600 #### [facility] [address] [place], [address] Qualitative QuantiFERON-TB g old in tube testOrdered By: HEALTH ASSESSMENT on 10-25-2024 M. tuberculosis tuberculin stim IFN-g Ql (Bld) 0.16 IU/mL . [facility] Quantiferon TB-Gold+on 10-23 QFT MITOGEN GERBER Normal [facility] Comment on above: Result Comment: left in incubator too long Performed By: #### L 3400.8000 #### [facility] [address] [place], [address] QFT NIL VALUE Normal [facility] Comment on above: Result Comment: left in incubator too long Performed By: #### L 3400.8000 #### [facility] [address] [place], [address] QFT TB GOLD+ Normal [facility] Comment on above: Result Comment: left in incubator too long Performed By: #### L 3400.8000 #### [facility] [address] [place], [address] QFT TB POS CRIT Normal [facility] Comment on above: Result Comment: left in incubator too long Performed By: #### L 3400.8000 #### [facility] [address] [place], [address] QFT TB1+ AG GERBER Normal [facility] Comment on above: Result Comment: left in incubator too long Performed By: #### L 3400.8000 #### [facility] [address] [place], [address] QFT TB2+ AG GERBER Normal [facility] Comment on above: Result Comment: left in incubator too long Performed By: #### L 3400.8000 #### [facility] [address] [place], [address] PAP IG HPV APTIMA 16/18,45on 08-04-2024 ADEQ Comment Normal . [facility] Comment on above: Order Comment: Speci men Comment: [id number] Comment: No. of containers..01 ThinPrep Vial Result Comment: Sati sfactory for evaluation. Endocervical and/or squamous metaplastic cells (endocervical component) are present. Performed By: #### L 3400.8000 #### [facility] [address] [place], [place], [id number] COMM . Normal . [facility] Comment on above: Order Comment: Speci men Comment: [id number] Comment: No. of containers..01 ThinPrep Vial Performed By: #### L 3400.8000 #### [facility] [address] [place], [address] COMMENT Comment Normal . [facility] Comment on above: Order Comment: Speci men Comment: [id number] Comment: No. of containers..01 ThinPrep Vial Result Comment: This liquid based ThinPrep(R) pap test was screened with the use of an image guided system. Performed By: #### L 3400.8000 #### [facility] [address] [place], [place], [id number] DIAG Comment Normal . [facility] Comment on above: Order Comment: Speci men Comment: [id number] Comment: No. of containers..01 ThinPrep Vial Result Comment: NEGA TIVE FOR INTRAEPITHELIAL LESION OR MALIGNANCY. Performed By: #### L 3400.8000 #### [facility] [address] [place], [address] HPV APTIMA, HR Negative Normal Negative [facility] Comment on above: Order Comment: Speci men Comment: [id number] Comment: No. of containers..01 ThinPrep Vial Result Comment: This nucleic acid amplification test detects fourteen high- risk HPV types (16,18,31,33,35,39,45,51,52,56,58,59,66,68) without differentiation. Performed By: #### L 3400.8000 #### [facility] [address] [place], [place], [address] HPV Mi Rfx Comment Normal . [facility] Comment on above: Order Comment: Speci men Comment: [id number] Comment: No. of containers..01 ThinPrep Vial Result Comment: Crit silva not met, HPV Genotype not performed. Performed at: [facility] [address] [place], [place] [id number] Manager Division: Jeovanny Slade MD, Phone: [phone] Performed at: - [facility] [id number] Manager Division: Magalie Benítez MD, Phone: [phone] Performed at: = - [facility] [id number] Manager Division: Magalie Benítez MD, Phone: [phone] Performed By: #### L 3400.8000 #### [facility] [address] [place], [address] PAPSMR Comment Normal . [facility] Comment on above: Order Comment: Speci men Comment: [id number] Comment: No. of containers..01 ThinPrep Vial Result Comment: The Pap smear is a screening test designed to aid in the detection of premalignant and malignant conditions of the uterine cervix. It is not a diagnostic procedure and should not be used as the sole means of detecting cervical cancer. Both false-positive and false-negative reports do occur. Performed By: #### L 3400.8000 #### [facility] [address] [place], [place], [address] PERFORM Comment Normal . [facility] Comment on above: Order Comment: Speci men Comment: [id number] Comment: No. of containers..01 ThinPrep Vial Result Comment: Joslyn Tolentino, Grounds Foreman (ASCP) Performed By: #### L 3400.8000 #### [facility] [address] [place], [address] CNOVon 07-30-2024 CNOV Office Visit (UCWSTR ) YENIHAMLET TAPIA ([id number]) 1985 F [facility] Date Time Provider Department 07/30/24 3:15 PM YORDY ANDERSEN [facility] During your visit today, we recorded [...] Wt 98.6 kg (217 lb [address] [facility] 02/19/2014 SpO2 98% BMI 38.51 kg/m? PHYSICAL [...] Medications Discontinued During This Encounter Prescriptions - Xsnoqssc-Yw-Pnn-Fe-FA ( VITAMIN) tab (Discontinued) Reported on 07/30/2024 - fenugreek seed extract 500 mg cap (Discontinued) Reported on 07/30/2024 - Breast Pump mynor (Discontinued) Reported on 07/30/2024 - Breast Pump mynor (Discontinued) Reported on 07/30/2024 - OLIVEIRA'S YEAST ORAL (Discontinued) Reported on 07/30/2024 - Norethindrone, Contraceptive, (ORTHO MICRONOR) 0.35 mg tablet (Discontinued) Reported on 07/30/2024 Level of Service: OFFICE/OUTPATIENT [facility] 30 MINUTES [39242] Encounter Status:Closed by YORDY ANDERSEN on 07/30/24 [facility] 37on 07-29-2024 37 -Healed well. Normal [facility] Office Visiton 07-29-2024 Follow-up visit [id number] Hamlet Teixeira 1985 F Date Provider Department Center 07/29/2024 [id number] [facility] None Family History Family Status - Relation Status Age at Mother Alive Father Alive Brother Alive Daughter Alive Son Level of Service:37421 MD POSTOP FOLLOW UP VISIT RELATED TO ORIGINAL PX Reason for Visit and Comments: Follow-up [873827] - follow up to perianal abscess drainage in office 07/07/24-antibiotic course. Other [0] - Pt unaccompanied [facility] Progress Noteon 07-29-2024 Progress Note @ASSESSMENTBEGINPHAN DODIE@ [...] ROS: Review of Systems as recordedby the internist medical doctor md has been reviewed by me, and I [...] MD on 07/29/2024 at 3:29 PM. 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 Report [facility] [address], [address] [place] [address] OFFICE VISIT Date of Service: 07/28/24 MR#: [id number] Acct: [id number] Name: HAMLET TEIXEIRA Rep #: [id number] : 1985 Provider: CHRISTAL Vilchis ams Age/Sex: 39/F [place] [facility] [place]: Signed Intake Vital Signs 07/25/23 09:03 07/28/24 09:21 07/28/24 09:30 Height 5 ft 3 in 5 ft 3 in 5 ft 3 in Weight: 213 lb BMI 37.7 BP 137/85 H Intake Visit 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 Normal [facility] Office Visiton 07-07-2024 Follow-up visit [id number] Hamlet Teixeira 1985 F Date Provider Department Center 07/07/2024 [facility] None Family History Family Status - Relation Status Age at Mother Alive Father Alive Brother Alive Daughter Alive Son Level of Service:[id number] MD OFFICE/OUTPT VISIT,PROCEDURE ONLY Reason for Visit and Comments: New Patient [542] - Evaluation for perianal abscess referring Dr. Guerra Other [0] - Pt unaccomapnied Normal [facility] Progress Noteon 07-07-2024 Progress Note @ASSESSMENTBEGINPHAN DODIE@ [...] ROS: Review of Systems as recordedby the internist medical doctor md has been reviewed by me, and I [...] MD on 07/07/2024 at 2:51 PM. Normal [facility] Absolute lymphocyte countOrd ered By: Michell Woodard on 09-19-2023 Lymphocytes Auto (Unsp spec) [#/Vol] 2.61 10*3/uL 0.83-4.51 [facility] Automated lymphocyte count a s percentage of total leukocytesOrdered By: Michell Woodard on 09-19-2023 Lymphocytes/100 WBC Auto (Unsp spec) 36.7 % 19-41 [facility] Basophil percentageOrdered B y: Michell Woodard on 09-19-2023 Basophils/100 WBC (Bld) 1.0 % 0-1 [facility] Bilirubin [Mass/Vol] 0.50 mg/dL 0.20-1.00 [facility] Comment on above: For patients on eltr ombopag therapy, use of Dimension [place] TBIL is not recommended. Chloride [Moles/Vol] 113 mmol/L 98-107 [facility] Cholesterol [Mass/Vol] 210 mg/dL <200 [facility] Comment on above: <200 mg/dL Desirable 200-240 mg/dL Borderline >240 mg/dL High Risk Eosinophils/100 WBC (Bld) 3.4 % 0-5 [facility] Glucose [Mass/Vol] 104 mg/dL 74-106 [facility] Comment on above: Fasting Glucose resu lt from 100 to 125 mg/dL suggests IMPAIRED HOMEOSTASIS per A.D.A. criteria. Hemoglobin (Bld) [Mass/Vol] 12.6 g/dL 12.0-15.0 [facility] Monocytes/100 WBC (Bld) 6.3 % 0-10 [facility] Neutrophils (Bld) [#/Vol] 3.7 10*3/uL 2.0-7.7 [facility] Neutrophils/100 WBC (Bld) 52.3 % 47-70 [facility] Potassium [Moles/Vol] 3.9 mmol/L 3.5-5.1 [facility] Protein [Mass/Vol] 7.3 g/dL 6.4-8.2 [facility] Sodium [Moles/Vol] 140 mmol/L 136-145 [facility] Triglyceride [Mass/Vol] 170 mg/dL <199 [facility] Comment on above: The drugs N-Acetylcy steine and Metamizole may falsely depress this assay.Serum Triglycerides Reference Interval Normal <150 mg/dL Borderline high 150 - 199 mg/dL High 200 - 499 mg/dL Very High > or = 500 mg/dL WBC (Bld) [#/Vol] 7.1 10*3/uL 4.4-11.0 [facility] Determination of erythrocyte mean corpuscular volume (MCV)Ordered By: Michell Woodard on 09-19-2023 MCV (RBC) [Entitic vol] 90.1 fL 81-99 [facility] Erythrocyte distribution wid th ratioOrdered By: Michell Woodard on 09-19-2023 Erythrocyte distribution width (RBC) [Ratio] 12.7 % 11.6-14.6 [facility] Erythrocyte distribution wid th standard deviationOrdered By: Michell Woodard on 09-19-2023 Erythrocyte distribution width (RBC) [Entitic vol] 41.9 fL 35.1-43.9 [facility] Hematocrit Auto (Bld) [Volum e fraction]Ordered By: Michell Wooadrd on 09-19-2023 Hematocrit (Bld) [Volume fraction] 39.2 % 37-47 [facility] High density lipoprotein (HD L) measurementOrdered By: Michell Woodard on 09-19-2023 Cholesterol in HDL (Body fld) [Mass/Vol] 41 mg/dL >40 [facility] Comment on above: The drugs N-Acetylcy steine and Metamizole may falsely depress this assay. Reference Range HDL <40 mg/dL Low HDL Cholesterol HDL >or= 60 mg/dL High HDL Cholesterol Immature granulocytes/100 WB C Auto (Bld)Ordered By: Michell Woodard on 09-19-2023 Immature granulocytes/100 WBC (Bld) 0.300 % 0.0-0.9 [facility] Comment on above: IG% - Immature Granu locytes (promyelocytes, myelocytes and metamyelocytes) > 1% indicates that a LEFT SHIFT is Present. Laboratory - Chemistry and C hemistry - challengeOrdered By: Michell Woodard on 09-19-2023 Albumin/Globulin [Mass ratio] 0.9 {ratio} 0.9-2.4 [facility] ALP [Catalytic activity/Vol] 68 U/L 45-117 [facility] [facility] ALT [Catalytic activity/Vol] 34 U/L 13-56 [facility] CO2 [Moles/Vol] 25.0 mmol/L 21.0-32.0 [facility] Globulin (S) [Mass/Vol] 3.9 g/dL 2.2-4.2 [facility] Urea nitrogen/Creatinine [Mass ratio] 12.3 mg/mg 10-20 [facility] Laboratory - Hematology and Cell countsOrdered By: Michell Woodard on 09-19-2023 MCH (RBC) [Entitic mass] 29.0 pg 27.0-32.0 [facility] MCHC (RBC) [Mass/Vol] 32.1 g/dL 32-36 [facility] Nucleated RBC/100 WBC (Bld) [Ratio] 0 % 0-5 [facility] Platelets (Bld) [#/Vol] 304 10*3/uL 150-450 [facility] Low density lipoprotein (LDL ) cholesterol measurementOrdered By: Michell Woodard on 09-19-2023 Cholesterol in LDL (Body fld) [Moles/Vol] 135 mg/dL 0-130 [facility] No Panel InformationOrdered By: Michell Woodard on 09-19-2023 Vitamin D 25-Hydroxy 23.2 ng/mL [facility] Comment on above: Vitamin D 25(OH) Sta tus Range Deficiency <20 ng/mL (50nmol/L) Insufficiency 20 - 30 ng/mL (50 - 75 nmol/L) Sufficiency 30 - 100 ng/mL (75 - 250 nmol/L) Toxicity >100 ng/mL (>250 nmol/L) Estimated GFR (MDRD) Amer 102 mL/min >60 [facility] Comment on above: GFR Calc Estimated GFR (MDRD) Non-Af Amer 84 mL/min >60 [facility] Comment on above: Non- GFR Calc Platelet mean volume Rafael-Ec ker (Bld) [Entitic vol]Ordered By: Michell Woodard on 09-19-2023 Platelet mean volume (Bld) [Entitic vol] 8.6 fL 6.2-12.0 [facility] RBC Auto (Bld) [#/Vol]Ordere d By: Michell Woodard on 09-19-2023 RBC (Bld) [#/Vol] 4.35 10*6/uL 4.2-5.4 [facility] Serum or plasma calcium harry urement (mass/volume)Ordered By: Michell Woodard on 09-19-2023 Calcium [Mass/Vol] 9.0 mg/dL 8.5-10.1 [facility] Serum or plasma creatinine m easurement (mass/volume)Ordered By: Michell Woodard on 09-19-2023 Creatinine [Mass/Vol] 0.81 mg/dL 0.55-1.02 [facility] Comment on above: The validity of the calculated GFR & GFRAA in patients over 70 years has not been determined. Clinical correlation is essential. Serum or plasma thyroid stim ulating hormone (TSH) measurement (units/volume)Ordered By: Michell Woodard on 09-19-2023 TSH Qn 1.55 uIU/mL 0.358-3.74 [facility] Serum or plasma thyroperoxid ase antibody assay (units/volume)Ordered By: Michell Woodard on 09-19-2023 TPO Ab Qn [IU]/mL 0-34 [facility] Comment on above: Performed at: - [address] [id number] Director: Rodrigo Edmondson PhD, Phone: [phone] Serum or plasma urea nitroge n measurement (mass/volume)Ordered By: Michell Woodard on 09-19-2023 Urea nitrogen [Mass/Vol] 10 mg/dL 7-18 [facility] Thin prep Papanicolaou smear with manual screeningOrdered By: Michell Woodard on 09-19-2023 Thin prep Papanicolaou smear with manual screening 0.80 ng/dL 0.76-1.46 [facility] Thin prep Papanicolaou smear with manual screening 3.4 g/dL 3.2-5.0 [facility] Thin prep Papanicolaou smear with manual screening 20 U/L 15-37 [facility] Thin prep Papanicolaou smear with manual screening 2 5-15 [facility] Very low density lipoprotein (VLDL) cholesterol measurementOrdered By: Mihcell Woodard on 09-19-2023 Cholesterol in VLDL Calc [Moles/Vol] 34 mg/dL 5-40 [facility] Whole blood hemoglobin A1c/t otal hemoglobin ratio (mass fraction)Ordered By: Michell Woodard on 09-19-2023 HbA1c (Bld) [Mass fraction] 5.5 % 3.8-5.6 [facility] Comment on above: Normal < 5.7 % Predi abetic 5.7 - 6.4 % Diabetic >or= 6.5 % Please note range changes. CBCon 02-07-2019 Erythrocyte distribution width (RBC) [Ratio] 12.0 % Normal 11-14.5 [facility] Comment on above: Order Comment: Kailash Colon Performed By: #### L 500.22379, L500.83751, L500.53911, L500.49946 #### [facility] [address] [place] [address] Hematocrit (Bld) [Volume fraction] 37.4 % Normal 35.0-47.0 [facility] Comment on above: Order Comment: Campu s: M Performed By: #### L 500.18331, L500.13243, L500.57699, L500.28425 #### [facility] [address] [place] [address] Hemoglobin (Bld) [Mass/Vol] 12.2 g/dL Normal 11.5-15.5 [facility] Comment on above: Order Comment: Campu s: M Performed By: #### L 500.01447, L500.96683, L500.10042, L500.18398 #### [facility] [address] [place] [address] MCHC (RBC) [Mass/Vol] 32.6 g/dL Normal 32.0-36.0 [facility] Comment on above: Order Comment: Campu s: M Performed By: #### L 500.35089, L500.03449, L500.14752, L500.66038 #### [facility] [address] [place] [address] MCV (RBC) [Entitic vol] 91.9 fL Normal 80.0-99.0 [facility] Comment on above: Order Comment: Campu s: M Performed By: #### L 500.48825, L500.05967, L500.77588, L500.22353 #### [facility] [address] [place], [place] [id number] Nucleated RBC/100 WBC (Bld) [Ratio] 0.0 % Normal Less than 1 [facility] Comment on above: Order Comment: Campu s: M Performed By: #### L 500.98226, L500.23549, L500.34193, L500.48145 #### [facility] [address] [place], [place] [address] Platelet mean volume (Bld) [Entitic vol] 8.7 fL Low 9.4-12.4 [facility] Comment on above: Order Comment: Campu s: M Performed By: #### L 500.69262, L500.07533, L500.23388, L500.57098 #### [facility] [address] [place] [address] Platelets (Bld) [#/Vol] 280 K/CU MM Normal 150-450 [facility] Comment on above: Order Comment: Campu s: M Performed By: #### L 500.18191, L500.35018, L500.50387, L500.28918 #### [facility] [address] [place] [address] RBC (Bld) [#/Vol] 4.07 M/CU MM Normal 3.90-5.30 [facility] Comment on above: Order Comment: Campu s: M Performed By: #### L 500.74904, L500.11601, L500.79823, L500.13983 #### [facility] [address] [place] [address] WBC (Bld) [#/Vol] 18.7 K/CUMM High 4.5-11.0 [facility] Comment on above: Order Comment: Campu s: M Performed By: #### L 500.32337, L500.74299, L500.04278, L500.05193 #### [facility] [address] [place] [address] CONS.ONCon 02-07-[address] [facility] Patient Name: HAMLET TEIXEIRA [address] [place] [address] Date of : [address] [address] Unit Number: [id number] CONSULTATION-ONC Patient Status: ADM IN Attending Doctor: Sia Ashton MD Service Date: 02/07/19 1904 CONSULTATION-ONCOLOGY Referring Physician Margaret Luna MD Consulted [...] week. 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 Allergies Coded Allergies: NO [...] Shai Brown CNP Verified/Reviewed by 02/07/19 1218 [facility] CONSULTATION-ONC [facility]: HAMLET TEIXEIRA [address] Date of : [address] [address] Unit Number: [id number] Progress Note-Hospitalist Patient Status: DIS IN Attending [...] They did not recommend thrombophilia work-up. Consulted 3D ANIMATOR for removal of the NuvaRing. Patient is [...] Margaret Luna MD Verified/Reviewed by 02/11/19 0938 [facility] Progress Note-Hospitalist [facility] 02-06-2019 Anion gap [Moles/Vol] 7 mmol/L Normal 5-16 [facility] Comment on above: Order Comment: Campu s: M Performed By: #### L 500.37073, L500.55562, L500.53374 #### [facility] [place] [address] Calcium [Mass/Vol] 8.8 mg/dL Normal 8.5-10.1 [facility] Comment on above: Order Comment: Campu s: M Performed By: #### L 500.92191, L500.19269, L500.56251 #### [facility] [address] [place] [address] Chloride [Moles/Vol] 106 mmol/L Normal 98-107 [facility] Comment on above: Order Comment: Campu s: M Performed By: #### L 500.77817, L500.97398, L500.24974 #### [facility] [address] [id number] CO2 [Moles/Vol] 26 mmol/L Normal 21-32 [facility] Comment on above: Order Comment: Ankushu s: M Performed By: #### L 500.30474, L500.30589, L500.92960 #### [facility] [place] [address] Creatinine [Mass/Vol] 0.820 mg/dL Normal 0.510- 0.95 0 [facility] Comment on above: Order Comment: Campu s: M Result Comment: Kathy ents receiving either N-Acetylcysteine (NAC) or Metamizole prior to venipuncture, may have falsely depressed results. Performed By: #### L 500.29889, L500.82329, L500.62435 #### [facility] [address] [place] [address] Glucose [Mass/Vol] 83 mg/dL Normal 70-100 [facility] Comment on above: Order Comment: Campu s: M Result Comment: 70-1 00- Normal Fasting; 100-125 Impaired Fasting; greater than 126 on more than one result- Diabetes. ADA guidelines. Results may be falsely elevated after the administration of Sulfapyridine. Results may be falsely depressed after the administration of Sulfasalazine. Performed By: #### L 500.09967, L500.36984, L500.44290 #### [facility] [address] [place] [address] Potassium [Moles/Vol] 4.3 mmol/L Normal 3.5-5.1 [facility] Comment on above: Order Comment: Ankushu s: M Performed By: #### L 500.40363, L500.99050, L500.83621 #### [facility] [place] [address] Sodium [Moles/Vol] 138 mmol/L Normal 136-145 [facility] Comment on above: Order Comment: Campu s: M Performed By: #### L 500.90691, L500.99495, L500.50905 #### [facility] [address] [place] [address] Urea nitrogen [Mass/Vol] 11 mg/dL Normal 7-26 [facility] Comment on above: Order Comment: Campu s: M Performed By: #### L 500.42573, L500.68821, L500.68903 #### [facility] [address] [place] [address] Urea nitrogen/Creatinine [Mass ratio] 14 mg/mg Low 15-24 [facility] Comment on above: Order Comment: Campu s: M Performed By: #### L 500.59562, L500.60175, L500.48015 #### [facility] [address] [place] [address] CBC W/DIFFon 02-06-2019 BASO ABS 0.10 K/CU MM Normal 0-0.2 [facility] Comment on above: Order Comment: Campu s: M Performed By: #### L 200.10559 #### [facility] [address] [place] [address] Basophils/100 WBC (Bld) 0.5 % Normal 0-2 [facility] Comment on above: Order Comment: Campu s: M Performed By: #### L 200.16671 #### [facility] [address] [place] [address] EOS ABS 0.20 K/CU MM Normal 0-0.5 [facility] Comment on above: Order Comment: Campu s: M Performed By: #### L 200.73890 #### [facility] [address] [place] [address] Eosinophils/100 WBC (Bld) 1.0 % Normal 0-5 [facility] Comment on above: Order Comment: Campu s: M Performed By: #### L 200.65928 #### [facility] [address] [place] [address] Erythrocyte distribution width (RBC) [Ratio] 12.2 % Normal 11-14.5 [facility] Comment on above: Order Comment: Campu s: M Performed By: #### L 200.73210 #### [facility] [address] [place] [address] Hematocrit (Bld) [Volume fraction] 42.5 % Normal 35.0-47.0 [facility] Comment on above: Order Comment: Campu s: M Performed By: #### L 200.30587 #### [facility] [address] [place] [address] Hemoglobin (Bld) [Mass/Vol] 13.5 g/dL Normal 11.5-15.5 [facility] Comment on above: Order Comment: Campu s: M Performed By: #### L 200.99188 #### [facility] [address] [place] [address] IMMATR GRAN ABS 0.10 K/CU MM Normal Less than 2 [facility] Comment on above: Order Comment: Campu s: M Performed By: #### L 200.38243 #### [facility] [address] [place] [address] IMMATURE GRAN % 0.6 % Normal Less than 2 [facility] Comment on above: Order Comment: Campu s: M Performed By: #### L 200.92235 #### [facility] [address] [place] [address] Lymphocytes (Bld) [#/Vol] 4.40 K/CU MM Normal 0.9-4.4 [facility] Comment on above: Order Comment: Campu s: M Performed By: #### L 200.16990 #### [facility] [address] [place] [address] Lymphocytes/100 WBC (Bld) 20.1 % Normal 20-40 [facility] Comment on above: Order Comment: Campu s: M Performed By: #### L 200.59384 #### [facility] [address] [place] [address] MCHC (RBC) [Mass/Vol] 31.8 g/dL Low 32.0-36.0 [facility] Comment on above: Order Comment: Campu s: M Performed By: #### L 200.04810 #### [facility] [address] [place] [address] MCV (RBC) [Entitic vol] 92.0 fL Normal 80.0-99.0 [facility] Comment on above: Order Comment: Campu s: M Performed By: #### L 200.47197 #### [facility] [address] [place] [address] MONO ABS 1.20 K/CU MM High 0.1-1.1 [facility] Comment on above: Order Comment: Campu s: M Performed By: #### L 200.23383 #### [facility] [address] [place] [address] Monocytes/100 WBC (Bld) 5.7 % Normal 2-10 [facility] Comment on above: Order Comment: Campu s: M Performed By: #### L 200.46102 #### [facility] [address] [place] [address] NEUTROPHIL ABS 15.60 K/CU MM High 2.0-8.3 [facility] Comment on above: Order Comment: Campu s: M Performed By: #### L 200.42354 #### [facility] [address] [place] [address] Neutrophils/100 WBC (Bld) 72.1 % Normal 45-75 [facility] Comment on above: Order Comment: Campu s: M Performed By: #### L 200.39120 #### [facility] [place] [address] Nucleated RBC/100 WBC (Bld) [Ratio] 0.0 % Normal Less than 1 [facility] Comment on above: Order Comment: Campu s: M Performed By: #### L 200.64514 #### [facility] [address] [place] [address] Platelet mean volume (Bld) [Entitic vol] 8.6 fL Low 9.4-12.4 [facility] Comment on above: Order Comment: Campu s: M Performed By: #### L 200.08491 #### [facility] [address] [place] [address] Platelets (Bld) [#/Vol] 300 K/CU MM Normal 150-450 [facility] Comment on above: Order Comment: Campu s: M Performed By: #### L 200.00697 #### [facility] [address] [place] [address] RBC (Bld) [#/Vol] 4.62 M/CU MM Normal 3.90-5.30 [facility] Comment on above: Order Comment: Campu s: M Performed By: #### L 200.19768 #### [facility] [address] [place] [address] WBC (Bld) [#/Vol] 21.7 K/CUMM High 4.5-11.0 [facility] Comment on above: Order Comment: Campu s: M Performed By: #### L 200.62075 #### [facility] [address] [place] [address] CDLECHOon 02-06-2019 CDLECHO INTERPRETING PHYSICI AN: Tammy [...] ventricle has normal dimensions. The visually estimated [facility] PATIENT NAME: HAMLET TEIXEIRA [address] [facility] [address] MEDICAL REC #: [id number] [place] [address] ADMIT DATE: 02/06/19 DISCHARGE DATE: 02/08/19 ATTENDING [...] mitral and tricuspid regurgitation. Tammy Henson MD [id number] SSI File#: [id number] Verified/Reviewed by [id number] [address] PATIENT NAME: HAMLET TEIXEIRA [address] [facility] [address] MEDICAL REC #: [id number] [place] [address] ADMIT DATE: 02/06/19 DISCHARGE DATE: 02/08/19 ATTENDING PHY: Sia Ashton MD ECHOCARDIOGRAM REPORT Normal [facility] ECHOCARDIOGRAM REPORT Normal [facility] CT ANG THOR W/POST PROCon CT ANG [...] M.D. Signed By: SCOTT PENA M.D. [facility] [place] 02-06-2019 EMERGENCY PHYSICIAN REPORT This is a preliminary report only, as the practitioner review and authentication has not occurred. [facility] ER PHYSICIAN ASSESSMENT RECORDS : FlexChartData Event Time: 02/06/2019 20:55 Status: Signed [facility] Hamlet Teixeira [[id number]] Attending Physician 1985 Chart (V2b) Chart created at 02/06/2019 20:14 by Ryan Saldana Chart closed at 02/06/2019 20:22 Entry in Emergency Department at 02/06/2019 16:42 Patient Name: Hamlet Teixeira Record Number: [id number] Date: 02/06/2019 20:14 Entered Department at: 02/06/2019 [...] Elements: Onset: Days ago; Timing: Sudden Onset; [facility] PATIENT NAME: HAMLET TEIXEIRA [facility] [address] MEDICAL REC #: [id number] [place] [address] EMERGENCY DEPARTMENT REPORT EMERGENCY DEPARTMENT PHYSICIAN Quality: [...] 21.7* andgt;------andlt; 300 / 42.5 / N:72.1 [facility] PATIENT NAME: HAMLET TEIXEIRA [address] [facility] [address] MEDICAL REC #: [id number] [place] [id number] EMERGENCY DEPARTMENT REPORT EMERGENCY DEPARTMENT PHYSICIAN BASO [...] thick axial images of the thorax were [facility] PATIENT NAME: HAMLET TEIXEIRA Dr. [address]am MEDICAL REC #: [id number] [place] [address] EMERGENCY DEPARTMENT REPORT EMERGENCY DEPARTMENT PHYSICIAN obtained [...] to small emboli in the right lung. [facility] PATIENT NAME: [facility] MEDICAL REC #: [id number] [place] [address] EMERGENCY DEPARTMENT REPORT EMERGENCY DEPARTMENT PHYSICIAN ---- [...] for Admit: Acute multiple bilateral pulmonary emboli.. [facility] PATIENT NAME: HAMLET TEIXEIRA [facility] [address] MEDICAL REC #: [id number] [place] [address] EMERGENCY DEPARTMENT REPORT EMERGENCY DEPARTMENT PHYSICIAN Disposition: Admitted at 06 Feb 2019, 20:22. MSE completed. I was the primary ED attending.. 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 [employer] Patient: HAMLET TEIXEIRA Sex: F : 1985 Age: 33 yr Account No: [id number] Registration Date: 16:42 02/06/2019 Address: [address] [place] [address] Address: [place] [address] REGISTRATION ED Number: [id number] Marital Status: M Financial Class: PPO TRIAGE Priority: 3 - Urgent Complaint: Shortness of Breath Stated Complaint: PT PRESENTS WITH LEFT ARM PAIN AND SHORTNESS OF BREATH/ SENT BY PCP TO R/O PE Arrival Date: 02/06/2019 16:42 Triage Date: 02/06/2019 16:42 Mode of Arrival: *Privately Owned Vehicle Transfer From: * Home WC: N Language: Spanish [facility] PATIENT NAME: HAMLET TEIXEIRA [address] [facility] [address] MEDICAL REC #: [id number] [place] [address] EMERGENCY DEPARTMENT REPORT EMERGENCY DEPARTMENT PHYSICIAN Transport: [...] 02/06/2019 21:32:56 ACU End: TRIAGE HISTORY ALLERGIES [facility] PATIENT NAME: HAMLET TEIXEIRA [address] [facility] [address] MEDICAL REC #: [id number] [place] [address] EMERGENCY DEPARTMENT REPORT EMERGENCY DEPARTMENT PHYSICIAN Allergic [...] month? 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 MEDICAL REC #: [id number] [place] [address] EMERGENCY DEPARTMENT REPORT EMERGENCY DEPARTMENT PHYSICIAN NURSING [...] 21:51 PT TAKEN TO THE FLOOR BY LACE MENDER 02/06/2019 21:52 ACU TREATMENT 02/06/2019 20:13 Physician Call - Dr. ASHTON called at 200702/06/2019 20:14 [facility] 02/06/2019 20:13 Physician Call - Dr. ASHTON answered at 200702/06/2019 20:14 [facility] 02/06/2019 20:59 Medication Verification - Heparin dose verified at bedside with Candice Ocampo RN 02/06/2019 21:02 SERAFIN 02/06/2019 21:16 Medication Verification - Heparin dose verified at bedside with Tasha MCDONALD 02/06/2019 21:17 BRR MEDICATIONS IV [facility] PATIENT NAME: HAMLET TEIXEIRA [address] [facility] [address] MEDICAL REC #: [id number] [place] [address] EMERGENCY DEPARTMENT REPORT EMERGENCY DEPARTMENT PHYSICIAN IV [...] Sa02: 99 Room Air 02/06/2019 19:02 SERAFIN [facility] PATIENT NAME: HAMLET TEIXEIRA [address] MEDICAL REC #: [id number] [place] [address] EMERGENCY DEPARTMENT REPORT EMERGENCY DEPARTMENT PHYSICIAN VS-Pain [...] (IV)*(30mg/ml) DOSE: 15 mg IV 02/06/2019 20:46 [facility] PATIENT NAME: HAMLET TEIXEIRA [facility] [address] MEDICAL REC #: [id number] [place] [address] EMERGENCY DEPARTMENT REPORT EMERGENCY DEPARTMENT PHYSICIAN N/A Ordered: 02/06/2019 20:11 By Rayn Saldana Completed Time: 02/06/2019 20:46 By Ryan [...] Ryan Saldana Noted Time: 02/06/2019 20:39 SERAFIN GED TUTOR ORDER: GFRP 02/06/2019 18:32 None Ordered: 02/06/2019 18:32 Completed Time: 02/06/2019 18:32 Results Time: 02/06/2019 18:32 GED TUTOR ORDER: POCTROP 02/06/2019 18:22 None Ordered: 02/06/2019 18:22 Completed Time: 02/06/2019 18:22 Results Time: 02/06/2019 18:22 IV hep lock 02/06/2019 18:03 N/A Ordered: 02/06/2019 17:45 By Jenna Cole Completed Time: 02/06/2019 18:03 By Jenna Cole IV NS bolus 1L over 60 min 02/06/2019 19:01 [facility] PATIENT NAME: HAMLET TEIXEIRA [address] [facility] [address] MEDICAL REC #: [id number] [place] [address] EMERGENCY DEPARTMENT REPORT EMERGENCY DEPARTMENT PHYSICIAN N/A [...] 02/06/2019 18:03 ANF Results Time: 02/06/2019 18:32 [facility] PATIENT NAME: HAMLET TEIXEIRA Octavia [address] [facility] [address] MEDICAL REC #: [id number] [place] [address] EMERGENCY DEPARTMENT REPORT EMERGENCY DEPARTMENT PHYSICIAN Duplex [...] Auto Generated Charge SIGNATURE Ryan Saldana MD [facility] RN P Jenna [facility] PATIENT NAME: HAMLET TEIXEIRA [address] [facility] [address] MEDICAL REC #: [id number] [place] [address] EMERGENCY DEPARTMENT REPORT EMERGENCY DEPARTMENT PHYSICIAN XI GUZMÁN IRINA FISHERLOPEZ BETANCOURT [facility] PATIENT NAME: [facility] [address] MEDICAL REC #: [id number] [place] [address] EMERGENCY DEPARTMENT REPORT EMERGENCY DEPARTMENT PHYSICIAN Normal [facility] GFR ESTon 02-06-2019 IF AMER Greater than 60 Normal [facility] Comment on above: Order Comment: Campu s: M Performed By: #### L 500.88562, L500.75812, L500.32464 #### [facility] [address] [place] [address] IF non-AFR AMER Greater than 60 [facility] Comment on above: Order Comment: Campu s: M Performed By: #### L 500.60956, L500.26469, L500.90701 #### [facility] [address] [place] [address] HCGon 02-06-2019 HCG Qn Negative Normal NEGATIVE [facility] Comment on above: Order Comment: Campu s: M Performed By: #### L 500.63409, L500.72423, L500.57288 #### [facility] [address] [place] [id number] HP.IMS.ADMon 02-06-2019 Admission-H&P Normal [facility] HP.IMS.ADM [facility] Patient Name: HAMLET TEIXEIRA [facility]0 [facility] Date of : [address] [address] Unit Number: [id number] Admission-HandP Patient Status: REG ER Attending Doctor: [...] her and son. She works as a [employer]. She does work third shift as a [...] Other Med Notes Laboratory Tests 02/06 02/06 1497 3189 Chemistry Sodium (136 - 145 MMOL/L) 138 [...] Ashton MD Verified/Reviewed by 02/06/19 2146 Normal [facility] TROPONIN I POCon 02-06-2019 Troponin I.cardiac [Mass/Vol] 0.00 ng/mL Normal 0.0-0.06 [facility] Comment on above: Result Comment: 0.0 - 0.06 NG/ML - NON-DIAGNOSTIC (REFERENCE RANGE) 0.07 - 0.59 NG/ML - INDETERMINATE Greater than or equal to 0.6 NG/ML - INDICATIVE OF MYOCARDIAL DAMAGE VLVDon 02-06-2019 VENOUS DUPLEX REPORT Normal [facility] VLVD VASCULAR MEDSTREAMIN G REPORT Patient: HAMLET TEIXEIRA Account [id number] Ordering Phy: MR: [id number] Reason for Visit: PULMONARY EMBOLISM Date of [...] Full Report is available via link to [employer] in PCI under [facility] Image Viewer. * [facility] PATIENT NAME: HAMLET TEIXEIRA [address] [facility] [address] Pham MEDICAL REC #: [id number] [place] [address] ADMIT DATE: 02/06/19 DISCHARGE DATE: VENOUS DUPLEX REPORT ATTENDING PHY: Sia Ashton MD Electronically Signed by: Rupesh Sharp MD Esign Date: 02/07/19 Normal [facility] CBC W/DIFFon 10-11-2018 BASO ABS 0.10 K/CU MM Normal 0-0.2 [facility] Comment on above: Performed By: #### L 200.38102 #### [facility] [address] [place] [address] Basophils/100 WBC (Bld) 0.8 % Normal 0-2 [facility] Comment on above: Performed By: #### L 200.67442 #### [facility] [address] [place] [address] EOS ABS 0.10 K/CU MM Normal 0-0.5 [facility] Comment on above: Performed By: #### L 200.82380 #### [facility] [address] [place] [address] Eosinophils/100 WBC (Bld) 1.3 % Normal 0-5 [facility] Comment on above: Performed By: #### L 200.68595 #### [facility] [address] [place] [address] Erythrocyte distribution width (RBC) [Ratio] 12.0 % Normal 11-14.5 [facility] Comment on above: Performed By: #### L 200.29899 #### [facility] [address] [place] [address] Hematocrit (Bld) [Volume fraction] 37.9 % Normal 35.0-47.0 [facility] Comment on above: Performed By: #### L 200.23350 #### [facility] [address] [place] [address] Hemoglobin (Bld) [Mass/Vol] 12.5 g/dL Normal 11.5-15.5 [facility] Comment on above: Performed By: #### L 200.90576 #### [facility] [address] [place] [address] IMMATR GRAN ABS 0.00 K/CU MM Normal Less than 2 [facility] Comment on above: Performed By: #### L 200.63241 #### [facility] [address] [place] [address] IMMATURE GRAN % 0.4 % Normal Less than 2 [facility] Comment on above: Performed By: #### L 200.85972 #### [facility] [address] [place] [address]# [phone] Lymphocytes (Bld) [#/Vol] 3.20 K/CU MM Normal 0.9-4.4 [facility] Comment on above: Performed By: #### L 200.64883 #### [facility] [address] [place] [address] Lymphocytes/100 WBC (Bld) 31.3 % Normal 20-40 [facility] Comment on above: Performed By: #### L 200.00614 #### [facility] [address] [place] [address] MCHC (RBC) [Mass/Vol] 33.0 g/dL Normal 32.0-36.0 [facility] Comment on above: Performed By: #### L 200.50112 #### [facility] [address] [place] [address] MCV (RBC) [Entitic vol] 90.0 fL Normal 80.0-99.0 [facility] Comment on above: Performed By: #### L 200.12677 #### [facility] [place] [address] MONO ABS 0.50 K/CU MM Normal 0.1-1.1 [facility] Comment on above: Performed By: #### L 200.57739 #### [facility] [address] [place] [address] Monocytes/100 WBC (Bld) 4.7 % Normal 2-10 [facility] Comment on above: Performed By: #### L 200.96274 #### [facility] [address] [place] [address] NEUTROPHIL ABS 6.30 K/CU MM Normal 2.0-8.3 [facility] Comment on above: Performed By: #### L 200.95723 #### [facility] [address] [place] [address] Neutrophils/100 WBC (Bld) 61.5 % Normal 45-75 [facility] Comment on above: Performed By: #### L 200.45310 #### [facility] [address] [place] [address] Nucleated RBC/100 WBC (Bld) [Ratio] 0.0 % Normal Less than 1 [facility] Comment on above: Performed By: #### L 200.07185 #### [facility] [address] [place] [address] Platelet mean volume (Bld) [Entitic vol] 9.2 fL Low 9.4-12.4 [facility] Comment on above: Performed By: #### L 200.55695 #### [facility] [address] [place], [place] [id number] Platelets (Bld) [#/Vol] 321 K/CU MM Normal 150-450 [facility] Comment on above: Performed By: #### L 200.70682 #### [facility] [address] [place] [address] RBC (Bld) [#/Vol] 4.21 M/CU MM Normal 3.90-5.30 [facility] Comment on above: Performed By: #### L 200.26356 #### [facility] [address] [place] [address] WBC (Bld) [#/Vol] 10.3 K/CUMM Normal 4.5-11.0 [facility] Comment on above: Performed By: #### L 200.64480 #### [facility] [address] [place] [address] CMPon 10-11-2018 Albumin [Mass/Vol] 3.2 g/dL Normal 3.2-5.0 [facility] Comment on above: Performed By: #### L 500.90136, L500.47954, L500.12811, L500.45948 #### [facility] [address] [place], [place] [address] Albumin/Globulin [Mass ratio] 0.9 {ratio} Normal 0.8-2.0 [facility] Comment on above: Performed By: #### L 500.25374, L500.18440, L500.20714, L500.12492 #### [facility] [address] [place] [address] ALK PHOS 54 U/L Normal 45-117 [facility] Comment on above: Performed By: #### L 500.88355, L500.40105, L500.70184, L500.35341 #### [facility] [address] [place], [place] [address] ALT [Catalytic activity/Vol] 15 U/L Normal 13-61 [facility] Comment on above: Result Comment: RESU LTS MAY BE FALSELY DEPRESSED AFTER THE ADMINISTRATION OF SULFASALAZINE AND/OR SULFAPYRIDINE. Performed By: #### L 500.74139, L500.56579, L500.51679, L500.58383 #### [facility] [place] [id number] Anion gap [Moles/Vol] 8 mmol/L Normal 5-16 [facility] Comment on above: Performed By: #### L 500.37741, L500.18268, L500.97969, L500.95726 #### [facility] [address] [place] [address] BILI TOTAL 0.3 MG/DL Normal 0.2-1.0 [facility] Comment on above: Performed By: #### L 500.70476, L500.26794, L500.59554, L500.13020 #### [facility] [address] [place] [address] Calcium [Mass/Vol] 8.3 mg/dL Low 8.5-10.1 [facility] Comment on above: Performed By: #### L 500.78644, L500.92837, L500.34589, L500.49619 #### [facility] [address] [place] [address] Chloride [Moles/Vol] 113 mmol/L High 98-107 [facility] Comment on above: Performed By: #### L 500.91930, L500.14969, L500.77526, L500.93920 #### [facility] [place] [address] CO2 [Moles/Vol] 24 mmol/L Normal 21-32 [facility] Comment on above: Performed By: #### L 500.61574, L500.21315, L500.78849, L500.17466 #### [facility] [address] [place], [place] [address] Creatinine [Mass/Vol] 0.909 mg/dL Normal 0.510- 0.95 0 [facility] Comment on above: Result Comment: Kathy ents receiving either N-Acetylcysteine (NAC) or Metamizole prior to venipuncture, may have falsely depressed results. Performed By: #### L 500.57187, L500.96298, L500.37646, L500.49859 #### [facility] [address] [place] [address] Globulin (S) [Mass/Vol] 3.6 g/dL Normal 2.2-4.2 [facility] Comment on above: Performed By: #### L 500.26705, L500.48999, L500.76848, L500.32813 #### [facility] [address] [place] [address] Glucose [Mass/Vol] 88 mg/dL Normal 70-100 [facility] Comment on above: Result Comment: 70-1 00- Normal Fasting; 100-125 Impaired Fasting; greater than 126 on more than one result- Diabetes. ADA guidelines. Results may be falsely elevated after the administration of Sulfapyridine. Results may be falsely depressed after the administration of Sulfasalazine. Performed By: #### L 500.21238, L500.21596, L500.81760, L500.07277 #### [facility] [place] [address] Potassium [Moles/Vol] 4.6 mmol/L Normal 3.5-5.1 [facility] Comment on above: Performed By: #### L 500.39686, L500.26749, L500.04162, L500.95253 #### [facility] [place] [address] Protein [Mass/Vol] 6.8 g/dL Normal 6.0-8.5 [facility] Comment on above: Performed By: #### L 500.95093, L500.62557, L500.86100, L500.89862 #### [facility] [address] [place] [address] SGOT (AST) 8 U/L Normal 8-34 [facility] Comment on above: Result Comment: RESU LTS MAY BE FALSELY DEPRESSED AFTER THE ADMINISTRATION OF SULFASALAZINE AND/OR SULFAPYRIDINE. Performed By: #### L 500.30666, L500.62121, L500.19926, L500.41554 #### [facility] [address] [place] [address] Sodium [Moles/Vol] 145 mmol/L Normal 136-145 [facility] Comment on above: Performed By: #### L 500.51934, L500.63587, L500.58992, L500.59339 #### [facility] [address] [place] [address] Urea nitrogen [Mass/Vol] 9 mg/dL Normal 7-26 [facility] Comment on above: Performed By: #### L 500.03325, L500.61364, L500.13892, L500.64860 #### [facility] [address] [place] [address] Urea nitrogen/Creatinine [Mass ratio] 10 mg/mg Low 15-24 [facility] Comment on above: Performed By: #### L 500.48961, L500.06782, L500.10730, L500.74881 #### [facility] [address] [place], [place] [address] GFR ESTon 10-11-2018 IF AMER Greater than 60 Normal [facility] Comment on above: Performed By: #### L 500.45038, L500.66599, L500.24552, L500.16217 #### [facility] [address] [place] [address] IF non-AFR AMER Greater than 60 Normal [facility] Comment on above: Performed By: #### L 500.48010, L500.20004, L500.16515, L500.37763 #### [facility] [address] [place] [address] LIPIDon 10-11-2018 Cholesterol [Mass/Vol] 180 mg/dL Normal 0-199 [facility] Comment on above: Performed By: #### L 500.24152, L500.88076, L500.57879, L500.87441 #### [facility] [address] [place] [address] Cholesterol in HDL [Mass/Vol] 51 mg/dL Normal [place] 40 [facility] Comment on above: Result Comment: Kathy ents receiving Metamizole prior to venipuncture, may have falsely depressed results. Performed By: #### L 500.43846, L500.43174, L500.46533, L500.59520 #### [facility] [address] [place] [address] Cholesterol in LDL [Mass/Vol] 90 mg/dL Normal 0-129 [facility] Comment on above: Result Comment: ___C HOLESTEROL/HDL RATIO RISK___ CHD RISK = Total CHOL LDL HDL (CHOL/HDL) Recommended <200 <130 >35 <3.4 Borderline 200-239 130-159 3.4-4.99 High >240 >160 >5.0 Performed By: #### L 500.57250, L500.39543, L500.98712, L500.61411 #### [facility] [address] [place] [address] Triglyceride [Mass/Vol] 195 mg/dL High 30-149 [facility] Comment on above: Result Comment: Kathy ents receiving either N-Acetylcysteine (NAC) or Metamizole prior to venipuncture, may have falsely depressed results. Performed By: #### L 500.16944, L500.12080, L500.28197, L500.96201 #### [facility] [address] [place] [address] TSHon 10-11-2018 TSH Qn 1.660 UIU/ML Normal 0.358-3.74 0 [facility] Comment on above: Result Comment: 3rd generation ultra sensitive TSH Performed By: #### L 500.73338, L500.92355, L500.86051, L500.78001 #### [facility] [place] [address] HCG,Totalon 07-17-2018 HCG Qn 8938.0 m[IU]/mL Normal [facility] Comment on above: Result Comment: Male < or = 1Non- female 1- 3Gestational Age:0.2-1 Week 5 - 501-2 Weeks 50 - 5002-3 Weeks 100 - 62888-8 Weeks 500 - 413876-4 weeks 1000 - 313047-6 weeks 31864 - 100,0006-8 weeks 35492 - 200,0002-3 months 90962 - 100,000 Performed By: #### H CG ####[place] [address] Patient Summary Documentson 10-29-2017 Patient Summary Documents Normal [facility] ([place]) Vital Signs Date Time Vital Sign Value Performing Clinician Facility 05-13-2025 09:17-0400 Body temperature 98 [degF] Dr. Ortega Medrano MD Work Phone: [facility] 05-13-2025 09:17-0400 Diastolic blood pressure 63 mm[Hg] Dr. Ortega Medrano MD Work Phone: [facility] 05-13-2025 09:17-0400 Heart rate 74 /min Dr. Ortega Medrano MD Work Phone: [facility] 05-13-2025 09:17-0400 Respiratory rate 16 /min Dr. Ortega Medrano MD Work Phone: [facility] 05-13-2025 09:17-0400 SaO2% (BldA) [Mass fraction] 98 % Dr. Ortega Medrano MD Work Phone: [facility] 05-13-2025 09:17-0400 Systolic blood pressure 112 mm[Hg] Dr. Ortega Medrano MD Work Phone: [facility] 05-12-2025 16:47-0400 Body height 160.[address] Ortega Medrano MD Work Phone: [facility] 05-12-2025 16:47-0400 Body mass index (BMI) [Ratio] 40.4 kg/m2 Dr. Ortega Medrano MD Work Phone: [facility] 05-12-2025 16:47-0400 Body weight 103.[address] Ortega Medrano MD Work Phone: [facility] 05-12-2025 16:00-0400 Inhaled oxygen flow rate 3 L/min Dr. Ortega Medrano MD Work Phone: [facility] 04-17-2025 09:28-0400 Body height 160.[address] Ortega Medrano MD Work Phone: [facility] 04-17-2025 09:28-0400 Body mass index (BMI) [Ratio] 40.2 kg/m2 Dr. Ortega Medrano MD Work Phone: [facility] 04-17-2025 09:28-0400 Body temperature 98.5 [degF] Dr. Ortega Medrano MD Work Phone: [facility] 04-17-2025 09:28-0400 Body weight 103.[address] Ortega Medrano MD Work Phone: [facility] 04-17-2025 09:28-0400 Diastolic blood pressure 87 mm[Hg] Dr. Ortega Medrano MD Work Phone: [facility] 04-17-2025 09:28-0400 Heart rate 63 /min Dr. Ortega Medrano MD Work Phone: [facility] 04-17-2025 09:28-0400 Respiratory rate 18 /min Dr. Ortega Medrano MD Work Phone: [facility] 04-17-2025 09:28-0400 SaO2% (BldA) [Mass fraction] 98 % Dr. Ortega Medrano MD Work Phone: [facility] 04-17-2025 09:28-0400 Systolic blood pressure 136 mm[Hg] Dr. Ortega Medrano MD Work Phone: [facility] 03-09-2025 14:23-0400 Body height 160 cm Baltazar Courtney MD Work Phone: [facility] 03-09-2025 14:23-0400 Body mass index (BMI) [Ratio] 40.57 kg/m2 Baltazar Courtney MD Work Phone: [facility] 03-09-2025 14:23-0400 Body temperature 97.11 [degF] Baltazar Courtney MD Work Phone: [facility] 03-09-2025 14:23-0400 Body weight 103.87 kg Baltazar Courtney MD Work Phone: [facility] 03-09-2025 14:23-0400 Diastolic blood pressure 82 mm[Hg] Baltazar Courtney MD Work Phone: [facility] Comment on above: Dr. Courtney notified of blood pressure 03-09-2025 14:23-0400 Heart rate 96 /min Baltazar Courtney MD Work Phone: [facility] 03-09-2025 14:23-0400 Respiratory rate 14 /min Baltazar Courtney MD Work Phone: [facility] 03-09-2025 14:23-0400 SaO2% (BldA) [Mass fraction] 98 % Baltazar Courtney MD Work Phone: [facility] 03-09-2025 14:23-0400 Systolic blood pressure 148 mm[Hg] Baltazar Courtney MD Work Phone: [facility] Comment on above: Dr. Courtney notified of blood pressure 07-30-2024 15:18-0500 Body mass index (BMI) [Ratio] 38.51 kg/m2 Yordy Andersen MD Work Phone: [facility] 07-30-2024 15:18-0500 Body temperature 98.6 [degF] Yordy Andersen MD Work Phone: [facility] 07-30-2024 15:18-0500 Body weight 98.6 kg Yordy Andersen MD Work Phone: [facility] 07-30-2024 15:18-0500 Diastolic blood pressure 80 mm[Hg] Yordy Andersen MD Work Phone: [facility] 07-30-2024 15:18-0500 Heart rate 80 /min Yordy Andersen MD Work Phone: [facility] 07-30-2024 15:18-0500 Respiratory rate 21 /min Yordy Andersen MD Work Phone: [facility] 07-30-2024 15:18-0500 SaO2% (BldA) [Mass fraction] 98 % Yordy Andersen MD Work Phone: [facility] 07-30-2024 15:18-0500 Systolic blood pressure 122 mm[Hg] Yordy Andersen MD Work Phone: [facility] 07-29-2024 15:01-0500 Body height 160 cm Gómez Younger MD Work Phone: [facility] 07-29-2024 15:01-0500 Body mass index (BMI) [Ratio] 37.98 kg/m2 Gómez Younger MD Work Phone: [facility] 07-29-2024 15:01-0500 Body temperature 98.01 [degF] Gómez Younger MD Work Phone: [facility] 07-29-2024 15:01-0500 Body weight 97.25 kg Gómez Younger MD Work Phone: [facility] 07-29-2024 15:01-0500 Diastolic blood pressure 78 mm[Hg] Gómez Younger MD Work Phone: [facility] 07-29-2024 15:01-0500 Systolic blood pressure 118 mm[Hg] Gómez Younger MD Work Phone: [facility] 07-07-2024 14:13-0500 Body height 160 cm Gómez Younger MD Work Phone: [facility] 07-07-2024 14:13-0500 Body mass index (BMI) [Ratio] 36.56 kg/m2 Gómez Younger MD Work Phone: [facility] 07-07-2024 14:13-0500 Body temperature 98.71 [degF] Gómez Younger MD Work Phone: [facility] 07-07-2024 14:13-0500 Body weight 93.62 kg Gómez Younger MD Work Phone: [facility] 07-07-2024 14:13-0500 Diastolic blood pressure 82 mm[Hg] Gómez Younger MD Work Phone: [facility] 07-07-2024 14:13-0500 Systolic blood pressure 118 mm[Hg] Gómez Younger MD Work Phone: [facility] 07-25-2023 09:03-0500 Body height 160.[address] Sommer Flynn Work Phone: [facility] 07-25-2023 08:55-0500 Body mass index (BMI) [Ratio] 39.2 kg/m2 Dr. Sommer Flynn Work Phone: [facility] 07-25-2023 08:55-0500 Body weight 100.[address] Sommer Flynn Work Phone: [facility] 07-25-2023 08:55-0500 Diastolic blood pressure 82 mm[Hg] Dr. Sommer Flynn Work Phone: [facility] 07-25-2023 08:55-0500 Systolic blood pressure 128 mm[Hg] Dr. Sommer Flynn Work Phone: [facility] Encounters Encounter Date Encounter Type Care Provider Facility Start: 06-15-2025 End: 06-15-2025 ambulatory [facility] Facility:[facility] Start: 05-22-2025 End: 05-22-[address] Gómez Casiano MD -[facility] Work Phone: Start: 05-22-2025 End: 05-22-[address] Ortega Medrano MD Work Phone: -[facility] Start: 05-13-2025 Non-patient / Non-visit Dr. Gómez Casiano MD -[facility] Start: 05-12-2025 End: 05-13-2025 ambulatory Gómez Casiano Facility:[facility] Start: 05-12-2025 End: 05-13-2025 Evaluation and management of inpatient Dr. Gómez Casiano MD [facility] Work Phone: Start: 05-12-2025 End: 05-13-[address] Ortega Mderano MD Work Phone: [facility] Start: 05-12-2025 ambulatory Gómez Casiano Facility: [facility] Start: 05-12-2025 Non-patient / Non-visit Dr. Gómez Casiano MD -[facility] Start: 04-23-2025 End: 04-23-[address] Ortega Medrano MD Work Phone: -[facility]trasound [facility] Start: 04-23-2025 End: 04-23-[address] Gómez Casiano MD -Ultrasound [facility] Work Phone: Start: 04-23-2025 End: 04-23-2025 ambulatory Gómez Casiano Facility:[facility] Start: 04-17-2025 End: 04-17-[address] Gómez Casiano MD -[facility] Work Phone: Start: 04-17-2025 End: 04-17-[address] Ortega Medrano MD Work Phone: -[facility] Start: 03-16-2025 End: 03-16-2025 Patient encounter procedure Baltazar Courtney MD Work Phone: General Surgery Comment on above: Multinodular goiter (Primary Dx) Start: 03-16-2025 End: 03-16-2025 ambulatory ORTEGA MEDRANO Facility:[facility] Start: 03-09-2025 End: 03-09-2025 Patient encounter procedure Baltazar Courtney MD Work Phone: General Surgery Comment on above: Multinodular goiter (Primary Dx) Start: 03-09-2025 End: 03-09-2025 ambulatory BALTAZAR COURTNEY Facility:[facility] Start: 03-04-2025 End: 03-04-2025 Chart abstracting Baltazar Courtney MD Work Phone: General Surgery Start: 02-12-2025 End: 02-12-[address] Sommer Flynn MD Work Phone: [facility] Work Phone: Start: 02-12-2025 End: 02-12-[address] Ortega Medrano MD -Ultrasound [facility] Work Phone: Start: 02-12-2025 End: 02-12-2025 ambulatory Ortega Medrano Facility:[facility] Start: 02-05-2025 End: 02-05-[address] Sommer Flynn MD Work Phone: [facility] Work Phone: Start: 02-05-2025 End: 02-05-[address] Ortega Medrano MD -Laboratory [facility] Start: 02-05-2025 End: 02-05-2025 ambulatory Ortega Medrano Facility:[facility] Start: 01-15-2025 Encounter for genera l adult medical examination without abnormal findings Sommerdwaine Flynn [facility] Start: 01-15-2025 ambulatory Sommer Flynn Facilit y:[facility] Start: 11-15-2024 Registered [facility] [facility] K [facility]ESS[facility] -Laboratory Work Phone: Start: 11-15-2024 ambulatory Health Risk Assessment Facility:[facility] Start: 10-25-2024 ambulatory Health Risk Assessment Facility:[facility] Start: 10-25-2024 Registered [employer] [facility] RIS K ASSESSMENT -Employee Health Start: 10-23-2024 Registered [employer] [facility] RIS K ASSESSMENT -Employee Health Start: 10-23-2024 ambulatory Health Risk Assessment [facility] [facility] Start: 07-30-2024 End: 07-30-2024 ambulatory SOMMER FLYNN Facility:[facility] Start: 07-30-2024 End: 07-30-2024 Office outpatient new 30 minutes Yordy Andersen MD Work Phone: [facility] Comment on above: Acute non-recurrent sinusitis, unspecified location (Primary Dx) Start: 07-29-2024 End: 07-29-2024 ambulatory [facility]Z [facility] Start: 07-29-2024 End: 07-29-2024 Postop follow up visit related to original px Gómez Younger MD Work Phone: [facility] [place] Comment on above: Perianal abscess (Pr imary Dx) Start: 07-28-2024 Encounter for gynecological examination (general) (routine) without abnormal findings Lali Gallagher [facility] Start: 07-28-2024 End: 07-28-2024 ambulatory [facility] Facility:[facility] Start: 07-28-2024 End: 07-28-2024 ambulatory [facility] Facility:[facility] Start: 07-07-2024 End: 07-07-2024 Patient encounter procedure Gómez Younger MD Work Phone: [facility] Comment on above: Perianal abscess (Pr imary Dx) Start: 07-07-2024 End: 07-07-2024 ambulatory [facility]Z YOUNG[facility] Start: 09-19-2023 End: 09-19-[address] Sommer Flynn Work Phone: [facility] Work Phone: Start: 09-19-2023 End: 09-19-[address] Sommer Flynn Work Phone: [facility]-Ultrasound, [facility] Work Phone: Start: 07-25-2023 End: 07-25-[address] Sommer Flynn Work Phone: [facility] Work Phone: Start: 07-17-2018 End: 07-18-2018 Patient encounter procedure KAREN Colon [facility] [place] Start: 10-29-2017 End: 10-29-2017 Emergency department patient visit [facility] Facility:A Procedures Date Procedure Procedure [...] limit of quantitation is 0.1ng/mLThyroglobulin measured by [employer] [facility] [employer] Start: 02-05-[address] Isaiah Flynn MD Work Phone: Comment on above: Thyroglobulin Antibody measured by VivochaMethodologyIt should be noted that the presence of thyroglobulinantibodies may not be pathogenic nor diagnostic, especiallyat very low levels. The assay business development analyst has found thatfour percent of individuals without [...] the productionof interferon gamma. Chemiluminescence immunoassaymethodologyPerformed at: [email or web address] [id number] Director: Rodrigo Edmondson PhD, Phone: [phone] Start: 09-19-[address] Sommer Flynn [...] had a prior FNA biopsy given a [place] 5 diagnosis and our final pathology appears [...] for Adults (1 - 1-dose 75+ series) [facility] Start: 2036 Zoster Vaccines (1 of 2) Zoste r Vaccines (1 of 2) [facility] Start: 03-24-2030 DTaP/Tdap/Td Vaccine s (5 - Td or Tdap) DTaP/Tdap/Td Vaccines (5 - Td or Tdap) [facility] Start: 03-24-2030 Urine microalbumin profile [facility] Start: 05-13-2025 Patient discharge [facility] Start: 05-12-2025 Application of intermittent pneumatic compression device [facility] Start: 05-12-2025 Following clinical pathway protocol [facility] Start: 05-12-2025 Application of ice collar, cap or bag [facility] Start: 05-12-2025 Elevation of head of bed [facility] Start: 05-12-2025 Admission procedure [facility] Start: 05-12-2025 Anes esoph thyrd lar ynx trach & lymph neck 1yr ANESTH NECK ORGAN 1YR/> [facility] Start: 05-12-2025 Thyroidectomy total/complete REMOVAL OF THYROID [facility] Start: 04-27-2025 Influenza vaccination Influenza Vacc ine (#1) [facility] Start: 03-30-2025 End: 03-30-2025 Patient encounter procedure 03/30/2025 2:45 PM EDT Office Visit General Surgery [address] [place], [place] [id number] Baltazar Courtney MD [address] [place], [place] [id number] 2 wk f/u-FNA results General Surgery Comment on above: 2 wk f/u-FNA results Start: 03-16-2025 End: 03-16-2025 Patient encounter procedure 03/16/2025 1:30 PM EDT Office Visit General Surgery [address] [place] [address] Baltazar Courtney MD [address] [place] [address] PROCEDURE: FNA Right thyroid x 2. Consent signed. [facility] General Surgery Comment on above: PROCEDURE: FNA Right thyroid x 2. Consent signed. [facility] Start: 03-09-2025 End: 03-09-2025 Patient encounter procedure 03/09/2025 2:45 PM EDT Office Visit General Surgery [address] [place] [address] Baltazar Courtney MD [address] [place] [address] CONSULT: THYROID NODULE / REFERRAL SCANNED. Images available. [facility] General Surgery Comment on above: CONSULT: THYROID NOD ULE / REFERRAL SCANNED. Images available. [facility] Start: 07-29-2024 End: 07-29-2024 Patient encounter procedure 07/29/2024 3:00 PM EST Office Visit [facility] [place] [address] [place] [id number] Gómez Younger MD [address] [facility] [address] [place] [address] [facility] [place] Start: 04-27-2024 COVID-19 Vaccine ( season) COVID-19 Vaccine ( season) [facility] Start: 04-23-2017 Screening for malign ant neoplasm of cervix Cervical Cancer Screening [facility] Start: 2016 Screening for malign ant neoplasm of cervix [facility] Start: 2007 Screening for malign ant neoplasm of cervix Pap Smear [facility] Start: 2004 Anxiety Screening Anxiety Screening [facility] Start: 2004 Depression Screening Depression Scre ening [facility] Start: 2004 Hepatitis C screening Hepatitis C Sc reening [facility] Start: 1999 Varicella vaccination Varicell a Vaccines (1 of 2 - 13+ 2-dose series) [facility] Start: 1998 Depression Monitoring Depression Mon itoring [facility] Start: 1987 MMR Vaccines (1 of 1 - Standard series) MMR Vaccines (1 of 1 - Standard series) [facility] Start: 1986 HIV screening HIV Screening [facility] Start: 1986 Lipid panel Lipid Panel [facility] CYTOLOGY NON-3D ANIMATOR [facility] Work Phone: Comment on above: Ordered: 03/16/2025 T4 free measurement [facility] Thyroid stimulating hormone measurement [facility] Triiodothyronine, fr ee measurement [facility] Immunizations Immunization Date Immunization Notes Care Provider Fa [facility] 06-17-2024 Influenza, injectabl e, Madin Emi Canine Kidney, preservative free, quadrivalent Dr. Sommer Flynn MD Work Phone: [facility] 06-17-2024 influenza virus vaccine, unspecified formulation Baltazar Courtney MD Work Phone: [facility] 07-12-2021 influenza, injectabl e, quadrivalent, preservative free Dr. Sommer Flynn Work Phone: [facility] 10-12-2020 Covid (Moderna) Dr. Sommer Flynn Work Phone: [facility] 09-14-2020 Covid (Moderna) Dr. Sommer Flynn Work Phone: [facility] 05-25-2020 influenza, injectabl e, quadrivalent, preservative free Dr. Sommer Flynn Work Phone: [facility] 03-24-2020 tetanus toxoid, redu janeen diphtheria toxoid, and acellular pertussis vaccine, adsorbed Dr. Sommer Flynn Work Phone: [facility] 07-09-2019 influenza, injectabl e, quadrivalent, preservative free Dr. Sommer Flynn Work Phone: [facility] 10-22-2014 tetanus toxoid, redu janeen diphtheria toxoid, and acellular pertussis vaccine, adsorbed Yordy Andersen MD Work Phone: [facility] 05-28-2014 hepatitis B vaccine, adult dosage Yordy Andersen MD Work Phone: [facility] 05-28-2014 influenza, injectabl e, quadrivalent, preservative free Yordy Andersen MD Work Phone: [facility] 11-27-2013 hepatitis B vaccine, adult dosage Yordy Andersen MD Work Phone: [facility] 10-27-2013 hepatitis B vaccine, adult dosage Yordy Andersen MD Work Phone: [facility] Work Phone: 10-27-2013 tetanus toxoid, redu janeen diphtheria toxoid, and acellular pertussis vaccine, adsorbed Yordy Andersen MD Work Phone: [facility] Payers Date Payer Category Payer Private Health Insurance [facility] [id number] 2024 Unknown [id number] 2024 Self-pay [id number] 2024 Commercial Managed C are - HMO [id number] 2024 Unknown [id number] 2024 Unknown [id number] 2015 Private Health Insurance [id number] Private Health Insurance [id number] Unknown [facility] MHS DO NOT USE 22 [id number] Unknown [id number] 62 Unknown [id number] 62 Unknown [id number] 2.16.840.1.290804.3.579.2.4 62 Unknown [id number] [id number] 62 Unknown [id number] 2.16.840.1.853395.3.579.2.4 62 Unknown [id number] 2.16.840.1.127655.3.579.2.4 62 Unknown [id number] 2.16.840.1.215096.3.579.2.4 62 Unknown [id number] 2.16.840.1.519750.3.579.2.4 62 Unknown [id number] 2.16.840.1.547943.3.579.2.4 62 Unknown [id number] 2.16.840.1.140242.3.579.2.4 62 Unknown [id number] 2.16.840.1.591722.3.579.2.4 62 Unknown [id number] 2.16.840.1.772452.3.579.2.4 62 Unknown [id number] 2.16.840.1.463718.3.579.2.4 62 Unknown [id number] 2.16.840.1.245921.3.579.2.4 62 Unknown [id number] [id number] 62 Social History Date Type Detail Facility Start: 07-25-2023 Tobacco smoking stat us SCIS Unknown if ever smoked [facility] Start: 03-18-2019 None [facility] Start: 03-18-2019 Spouse/ Signif icant Other [facility] Start: 1985 Sex Assigned At Female W [facility] Start: 07-07-2024 End: 05-06-2025 Tobacco smoking status NHIS Never smoked tobacco [facility] Start: 04-23-2014 End: 07-07-2024 Tobacco use and exposure Smokeless tobacco non-user [facility] Start: 07-07-2024 End: 03-09-2025 Alcoholic beverage intake Current drinker of alcohol (finding) [facility] Start: 07-07-2024 End: 03-09-2025 History of Social function [facility] Start: 07-07-2024 End: 03-09-2025 Tobacco use panel [facility] Start: 1985 Sex assigned at Not on file [facility] Start: 04-28-2022 Sex Female (finding) [facility] Start: 07-30-2024 End: 03-04-2025 Alcoholic beverage intake Current non-drinker of alcohol (finding) [facility] National Score (1-100), lower number is lower risk 71 [facility] Start: 03-09-2025 Alcohol Comment Socially- meg mated once monthly [facility] Medical Equipment Procedure Code Equipment Code Equipment Original Text Equipment Identifier Dates Thyroidectomy Plant polysaccha ride haemostatic agent, bioabsorbable ()[id number] FDA Start: 05-12-2025 Thyroidectomy Ligation clip, metallic ( )[id number] FDA Start: 05-12-2025 Goals Date Patient Goal Desired Activity /State Functional Status Date Assessment Result Facility 05-13-2025 Functional status Ambulates [facility] Work Phone: 12-17-2014 Are you deaf, or do you have serious difficulty hearing No 12/17/2014 9:56 AM EDArcelia Delatorre Ma Leighann No [facility] 12-17-2014 Are you blind, or do you have serious difficulty seeing, even when wearing glasses No 12/17/2014 9:56 AM EDLeighann Tello Ma [facility] 12-17-2014 Do you have serious difficulty walking or climbing stairs No 12/17/2014 9:56 AM EDLeighann Tello Ma [facility] 12-17-2014 Do you have difficul ty dressing or bathing No 12/17/2014 9:56 AM EDLeighann Tello Ma Jennifer [facility] 12-17-2014 Because of a physica l, mental, or emotional condition, do you have difficulty doing errands alone such as visiting a physician's office or shopping No 12/17/2014 9:56 AM SANDRA Delatorre MaLeighann [facility] Mental Status Date Assessment Result Facility 05-13-2025 Cognitive function Level Of Cons ciousness Awake [facility] Work Phone: 05-13-2025 Cognitive function Voice/Name [facility] Work Phone: 12-17-2014 Because of a physica l, mental, or emotional condition, do you have serious difficulty concentrating, remembering, or making decisions No 12/17/2014 9:56 AM EDArcelia Delatorre MaLeighann [facility] Clinical Notes 07-07-2024 to 05-22-2025 Note Date & Type Note Facility 05-22-2025 Progress note [facility] 05-13-2025 Discharge summary [facility] 05-13-2025 Discharge summary [facility] 05-13-2025 Procedure note [facility] 05-13-2025 Discharge summary Note Date/Time May 13, 2025 11:33am [facility] Medical Records Department [address] [place] [address] Discharge Summary 05/13/25 0759 MR#: [id number] Acct: [id number] Name: HAMLET TEIXEIRA Rep # :[id number] : 1985 39 From: Gómez Quick PCP: Dr. Ortega Medrano MD Status:JESUS PLATA Location: [facility] [id number] Providers Date of Admission: 05/12/25 Primary Care [...] she returns home. Will also advance to [facility]. Discussed outpatient wound care and follow-up instructions. Patient denies any further questions. Provided the above implemented care plan items proceed without complication will plan for discharge later today. Gómez Casiano MD General Surgery Endocrine Surgery Pager: [facility] [address] [place] [address], [address] [place] [address] Office: [phone] Medications at Discharge Home Medications duloxetine 60 [...] Self Care Charges/Coding Visit Charges Inpatient E&M: 69493 Disch Hosp 05/13/25 1133 <Electronically signed by Gómez Casiano MD> Cosigner Signature (if applicable): CC: Dr. Ortega Medrano MD; Dr. Gómez Casiano MD~ Signed [facility] Work Phone: 1(263) 169-488309-17-2025 Discharge summary Author Gómez Casiano [facility] Note Date/Time May 13, 2025 11:32am [facility] Medical Records Department [address] [place] [address] Instructions for Home/Discharge Instructions 05/13/25 0755 MR#: [id number] Acct: [id number] Name: HAMLET TEIXEIRA Rep # :[id number] : 1985 39 From: Gómez Quick PCP: [...] Ortega Medrano MD ~ Signed [facility] Work Phone: 1(976) 912-344709-17-2025 Progress note Author Gómez Casiano [facility] Note Date/Time May 13, 2025 7:45am [facility] Medical Records Department [address] [place] [address] Progress Note - Surgery 05/13/25 0742 MR#: [id number] Acct: [id number] Name: HAMLET TEIXEIRA Rep # :[id number] : 1985 39 From: Gómez Quick PCP: Dr. Ortega Medrano MD Status:JESUS PLATA Location: [place]3 EP019-4 Subjective Subjective Patient doing well this morning. [...] Casiano MD General Surgery Endocrine Surgery Pager: [facility] [address] [place] [address], [address] [place] [address] Office: [phone] Charges/Coding Visit Charges Inpatient E&M: 45586 Subs Hosp L1 05/13/25 0745 <Electronically signed by Gómez Casiano MD> Cosigner Signature (if applicable): CC: ~ Signed [facility] Work Phone: 1(178) 976-413309-17-2025 [facility] Medical Records Department [address] [place] [address] Discharge Summary 05/13/25 0759 MR#: [id number] Acct: [id number] Name: HAMLET TEIXEIRA Rep #: [id number] : 1985 39 From: Gómez Casiano MD PCP: Dr. Ortega Medrano MD Status:ADM BONI Location: [place] [address] Providers Date of Admission: 05/12/25 Primary Care [...] Casiano MD General Surgery Endocrine Surgery Pager: [facility] [address] [place] [address], [facility], [address] [place] [address] Office: [phone] Medications at Discharge Home Medications duloxetine 60 [...] 5 (more content not included)... [facility]09-17-2025 Progress note [facility] Medical Records Department [address] [place] [address] Progress Note - Surgery 05/13/25 0742 MR#: [id number] Acct: [id number] Name: HAMLET TEIXEIRA Rep # :[id number] : 1985 39 From: Gómez Quick PCP: Dr. Ortega Medrano MD Status:AD [facility] Location: [place] [address] Subjective Subjective Patient doing well this morning. [...] Casiano MD General Surgery Endocrine Surgery Pager: [facility] [address] [place] [address], [address] [place] [address] Office: [phone] Charges/Coding Visit Charges Inpatient E&M: 29811 Subs Hosp L1 05/13/25 0745 Cosigner Signature (if applicable): CC: ~ Signed [facility]09-16-2025 Consult note Author Leighton Copeland [facility] Note Date/Time May 12, 2025 5:21pm [facility] Medical Records Department [address] [place] [address] Anesthesia Postop Eval II 05/12/25 1709 MR#: [id number] Acct: [id number] Name: HAMLET TEIXEIRA Rep # :[id number] : 1985 39 From: Leighton Copeland MD PCP: Dr. Ortega Medrano MD Status:AD M BONI Y Race: C Location: [place] [address] Anesthesia Postop Eval I Sum Postop Eval Completion status Anesthesia document: Postop Eval 1 completed: Yes Anesthesia Postop Eval I Summary Anesthesia Postop Eval I Summary: Anesthesia Postop Eval I: Assessment Summary Airway patent Yes 05/12/25 15:10 PARKING METER MECHANIC.GDOTT Spontaneous unlabored Yes 05/12/25 15:10 PARKING METER MECHANIC.GDOTT respirations Mental status Awake,Calm 05/12/25 15:10 PARKING METER MECHANIC.GDOTT nausea No 05/12/25 15:10 PARKING METER MECHANIC.GDOTT Vomiting No 05/12/25 15:10 PARKING METER MECHANIC.GDOTT Anesthesia Postop Eval I: Fluid Summary Crystalloid volume administer 1,400 05/12/25 15:10 PARKING METER MECHANIC.GDOTT (ml) Colloids volume administered ( ml) Blood Product volume administered (ml) Total IV fluid infused 1,400 05/12/25 15:10 PARKING METER MECHANIC.GDOTT Anesthesia Postop Eval I: Summary Notes Anesthesia Complication No 05/12/25 15:10 PARKING METER MECHANIC.GDOTT Anesthesia Complication Comment: Post-operative progress note Anesthesia: [...] signed by Leighton aguilar MD> Date _ Leigthon Copeland MD Cosigner Signature: Date CC: ~ Signed [facility] Work Phone: 1(296) 493-596909-16-2025 Consult note [facility] Medical Records Department [address] [place] [address] Anesthesia Postop Eval II 05/12/25 1709 MR#: [id number] Acct: [id number] Name: HAMLET TEIXEIRA Rep # :[id number] : 1985 39 From: Leighton Copeland MD PCP: Dr. Ortega Medrano MD Status:AD M BONI Y Race: C Location: [place] [address] Anesthesia Postop Eval I Sum Postop Eval Completion status Anesthesia document: Postop Eval 1 completed: Yes Anesthesia Postop Eval I Summary Anesthesia Postop Eval I Summary: Anesthesia Postop Eval I: Assessment Summary Airway patent Yes 05/12/25 15:10 PARKING METER MECHANIC.GDOTT Spontaneous unlabored Yes 05/12/25 15:10 PARKING METER MECHANIC.GDOTT respirations Mental status Awake,Calm 05/12/25 15:10 PARKING METER MECHANIC.GDOTT nausea No 05/12/25 15:10 PARKING METER MECHANIC.GDOTT Vomiting No 05/12/25 15:10 PARKING METER MECHANIC.GDOTT Anesthesia Postop Eval I: Fluid Summary Crystalloid volume administer 1,400 05/12/25 15:10 PARKING METER MECHANIC.GDOTT (ml) Colloids volume administered ( ml) Blood Product volume administered (ml) Total IV fluid infused 1,400 05/12/25 15:10 PARKING METER MECHANIC.GDOTT Anesthesia Postop Eval I: Summary Notes Anesthesia Complication No 05/12/25 15:10 PARKING METER MECHANIC.GDOTT Anesthesia Complication Comment: Post-operative progress note Anesthesia: [...] Signature: Date CC: ~ Signed [facility]09-16-2025 Consult note Author Estella Henry [facility] Note Date/Time May 12, 2025 3:10pm [facility] Medical Records Department [address] [place] [address] Anesthesia Postop Eval I 05/12/25 1508 MR#: [id number] Acct: [id number] Name: HAMLET TEIXEIRA Rep # :[id number] : 1985 39 From: Estella MONTANO PCP: Dr. Ortega Medrano MD Status: [facility] [place] Race: C Location: [place] [address] Anesthesia: Postop Eval I Current Vital Signs [...] Estella Yaoignbart Signature: Date CC: ~ Signed [facility] Work Phone: 1(946) 404-776609-16-2025 Consult note [facility] Medical Records Department [address] [place] [address] Anesthesia Postop Eval I 05/12/25 1508 MR#: [id number] Acct: [id number] Name: HAMLET TEIXEIRA Rep # :[id number] : 1985 39 From: Estella MONTANO PCP: Dr. Ortega Medrano MD Status:RE G [facility] Y Race: C Location: [place] [address] Anesthesia: Postop Eval I Current Vital Signs [...] Postop Eval 1 completed: Yes 05/12/25 1510 PARKING METER MECHANIC> Date _ Estella Henry PARKING METER MECHANIC Cosigner Signature: Date CC: ~ Signed [facility]09-16-2025 History and physical note Author Gómez Casiano [facility] Note Date/Time May 12, 2025 11:00am [facility] Medical Records Department [address] [place] [address] History & Physical Exam 05/12/25 1058 MR#: [id number] Acct: [id number] Name: HAMLET TEIXEIRA Rep # :[id number] : 1985 39 From: Gómez Quick PCP: Dr. Ortega Medrano MD Status:RE [facility] Location: [place] [address] History and Physical Date of Admission: 05/12/25 Date of Service: 04/17/25 MR#: [id number] Acct: [id number] Name: HAMLET TEIXEIRA Rep #: [id number] : 1985 Provider: Dr. 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 The latter [...] would appear patient has a 2.2 cm [place] 5 nodule suspicious forunifocal PTC. I held a lengthy conversation today with Mrs. Teixeira regarding her surgical options. I suggested that [place] [employer] Association would generally recommend thyroid lobectomy [...] should be able aline managed here in [place]. Lastly, I described the implications for risk [...] Dr. Gómez Casiano MD~ Signed [facility] Work Phone: 1(925) 824-826209-16-2025 Consult note Author Leighton Copeland [facility] Note Date/Time May 12, 2025 10:32am [facility] Medical Records Department [address] [place] [address] Pre-Anesthesia Evaluation 05/12/25 1018 MR#: [id number] Acct: [id number] Name: HAMLET TEIXEIRA Rep # :[id number] : 1985 39 From: Leighton Copeland MD PCP: Dr. Ortega Medrano MD Status:RE [facility] [place] Race: C Location: [place] [address] ASA Classification* ASA Classification ASA Classification: 2 [...] 12.9 SECONDS (11.7-14.9) 04/02/20 11:05 HCG, Quant 97950 mIU/mL (1-3) H 10/27/19 15:35 10/27/19 Pre-Assessment Diagnosis/Proposed Procedure Planned Operative Procedure(s): TOTAL THYROIDECTOMY Anesthesia History Anesthesia History - laundry clerk: Anesthesia History - laundry clerk Hx Hospitalization No 05/06/25 10:07 Any Problems [...] take am of surgery PONV PONV - laundry clerk: PONV - laundry clerk Female Yes 05/06/25 10:07 HX of Motion [...] 05/12/25 09:53 Respiratory Assessment Respiratory Assessment - laundry clerk: Respiratory Tract Infection Hx - laundry clerk Hx Respiratory Tract Infection No 05/06/25 10:07 STOP Sleep Apnea STOP Sleep Apnea - laundry clerk: STOP Sleep Apnea - laundry clerk Hx Hypertension No 05/06/25 10:07 Hx Sleep [...] Tobacco Use History Tobacco Use History - laundry clerk: Tobacco Use History - laundry clerk Tobacco Use Smoking Status Never smoker 05/06/25 10:07 Hx Tobacco Use No 05/06/25 10:07 Years Smoking Packs Smoked per Day Smoking Cessation Date was within the last 15 years Hx Smoking Cessation Date Hx Smoking Cessation Counseling Hematologic Medial History Hematologic Hx - laundry clerk: Hematologic Medical Hx - chip frier Hx of Blood Transfusion No 05/06/25 10:07 [...] confused, unrespo /Reproduction History /Reproductive History - laundry clerk: /Reproductive Hx- laundry clerk Hx Now No 05/06/25 10:07 Gestational Age [...] current occupational status: employed 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 Ortega Medrano MD Status:[facility] Location: [place] [address] History and Physical Date of Admission: 05/12/25 Date of Service: 04/17/25 MR#: [id number] Acct: [id number] Name: HAMLET TEIXEIRA Rep #: [id number] : 1985 Provider: Dr. 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 Cuortney who recommended biopsy despite radiology's ultrasound impression due to her overallpicture. She underwent biopsy of a right superior and right inferior nodule with [place] 5 and 3 ratings, respectively. The latter [...] would appear patient has a 2.2 cm [place] 5 nodule suspicious forunifocal PTC. I held a lengthy conversation today with regarding her surgical options. I suggested that [place] thyroid Association would generally recommend thyroid lobectomy [...] should be able aline managed here in [place]. Lastly, I described the implications for risk [...] Dr. Gómez Casiano MD~ Signed [facility]09-16-2025 [facility] Medical Records Department [address] [place] [address] History Physical Exam 05/12/25 1058 MR#: [id number] Acct: [id number] Name: HAMLET TEIXEIRA Rep #: [id number] : 1985 39 From: Gómez Casiano MD PCP: Dr. Ortega Medrano MD Status:[facility] Location: [place] [address] History and Physical Date of Admission: 05/12/25 Date of Service: 04/17/25 MR#: [id number] Acct: [id number] Name: HAMLET TEIXEIRAIA Rep #: [id number] : 1985 Provider: Dr. 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 The latter [...] General: Y (more content not included)...[facility]09-16-2025 Consult note [facility] Medical Records Department [address] [place] [address] Pre-Anesthesia Evaluation 05/12/25 1018 MR#: [id number] Acct: [id number] Name: HAMLET TEIXEIRA Rep # :[id number] : 1985 39 From: Leighton Copeland MD PCP: Dr. Ortega Medrano MD Status:RE G [facility] Y Race: C Location: [facility]06- ASA Classification* ASA Classification ASA Classification: 2 [...] 12.9 SECONDS (11.7-14.9) 04/02/20 11:05 HCG, Quant 26445 mIU/mL (1-3) H 10/27/19 15:35 10/27/19 Pre-Assessment Diagnosis/Proposed Procedure Planned Operative Procedure(s): TOTAL THYROIDECTOMY Anesthesia History Anesthesia History - laundry clerk: Anesthesia History - laundry clerk Hx Hospitalization No 05/06/25 10:07 Any Problems [...] take am of surgery PONV PONV - laundry clerk: PONV - laundry clerk Female Yes 05/06/25 10:07 HX of Motion [...] 05/12/25 09:53 Respiratory Assessment Respiratory Assessment - laundry clerk: Respiratory Tract Infection Hx - laundry clerk Hx Respiratory Tract Infection No 05/06/25 10:07 STOP Sleep Apnea STOP Sleep Apnea - laundry clerk: STOP Sleep Apnea - laundry clerk Hx Hypertension No 05/06/25 10:07 Hx Sleep [...] Tobacco Use History Tobacco Use History - laundry clerk: Tobacco Use History - laundry clerk Tobacco Use Smoking Status Never smoker 05/06/25 10:07 Hx Tobacco Use No 05/06/25 10:07 Years Smoking Packs Smoked per Day Smoking Cessation Date was within the last 15 years Hx Smoking Cessation Date Hx Smoking Cessation Counseling Hematologic Medial History Hematologic Hx - laundry clerk: Hematologic Medical Hx - chip frier Hx of Blood Transfusion No 05/06/25 10:07 [...] confused, unrespo /Reproduction History /Reproductive History - laundry clerk: /Reproductive Hx- laundry clerk Hx Now No 05/06/25 10:07 Gestational Age [...] current occupational status: 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 Ortega Medrano MD Status: RE G CLI Study:Head/Neck Soft Tissue Date of Exam: 04/23/25 Exam# [id number] Ordering Dr: Gillian Casiano MD ADDENDUM by Dr. Ian Cox MD on 04/28/25 at 1320 The lymph node as a normal appearing fatty hilum and good cortical thickness. This suggests benignity. Reading Location: [facility]-IR-1 04/28/25 1321 Date cc: Dr. Ortega Medrano [...] right side of the neck. Reading Location: [id number] CC: Dr. Ortega Medrano MD; Dr. Gómez Casiano MD ~ Information Technology Professor: Signed [facility]08-22-2025 Evaluation note* Diagnosis Onset Date Resolution Status Admit Date Multiple thyroid nodules acute April 17, 2025 9:12am [facility] Work Phone: 1(626) 295-862008-22-2025 Evaluation note* Diagnosis Onset Date Resolution Status Admit Date Multiple thyroid nodules acute April 17, 2025 9:12am Status post total thyroidectomy acute May 12, 2025 2:52pm [facility] Work Phone: 1(563) 170-803908-22-2025 Evaluation note* Diagnosis Onset Date Resolution Status Admit Date Multiple thyroid nodules acute April 17, 2025 9:12am Status post total thyroidectomy acute May 12, 2025 2:52pm Status post total thyroidectomy acute May 22, 2025 8:01am [facility] Work Phone: 1(670) 645-881607-21-2025 Note* Addendum Note - Amirah Nice RN - 03/16/2025 2:03 PM EDTAddended by: AMIRAH NICE on: 03/16/2025 02:03 PM Modules accepted: Orders [facility]07-21-2025 Miscellaneous Notes* Addendum Note - Amirah Nice RN - 03/16/2025 2:03 PM EDTAddended by: AMIRAH NICE on: 03/16/2025 02:03 PM Modules accepted: Orders * Addendum Note - Amirah Nice RN - 03/16/2025 2:01 PM EDTAddended by: AMIRAH NICE on: 03/16/2025 02:01 PM Modules accepted: Orders documented in [facility]-2025 Note* Addendum Note - Amirah Nice RN - 03/16/2025 2:01 PM EDTAddended by: AMIRAH NICE on: 03/16/2025 02:01 PM Modules accepted: Orders [facility]07-21-2025 NoteHNO ID: [id number] Author: BALTAZAR COURTNEY MD Service: ? Author [...] applied and the patient tolerated the procedure well.[facility]07-21-2025 History of Present illness Narrative* Baltazar [...] tolerated the procedure well. documented in this encounterSouth[facility]07-21-2025 Instructions* Patient Instructions* Amirah Nice RN - 03/16/2025 1:44 PM EDT The following instructions are important for you related to your office visit today with the [facility] General Surgeons. Instructions After THYROID FINE [...] you have any questions or concerns @ [phone]. Please make an appointment to follow up in one week with your physician and [facility] If you note any additional difficulties, questions, or concerns, you should contact our office immediately @ [phone] and ask to be transferred to the General Surgery department. documented in this encounterSouth[facility]07-21-2025 NoteHNO ID: [id number] Author: AMIRAH NICE RN Service: ? Author [...] has been communicated to the patient or surrogate.[facility]07-21-2025 Procedure note* Amirah Nice RN - [...] been communicated to the patient or surrogate. [facility]07-21-2025 Procedure note* Amirah Nice RN - [...] the patient or surrogate. documented in this [facility]South[facility]07-18-2025 NoteHNO ID: [id number] Author: BALTAZAR COURTNEY MD Service: ? Author [...] risk. - Patient to schedule FNA with front desk team member; procedures performed on Mondays and Tuesdays. Diagnoses: (E04.2) Multinodular goiter (primary encounter diagnosis) A letter was sent to Dr. Ortega Medrano MD, MD indicating the above finding for this patient. Return to Clinic: The patient is instructed to follow-up with me 1 week post operatively. (more content not included)...[facility]07-18-2025 History of Present illness Narrative* Baltazar [...] risk. - Patient to schedule FNA with front desk team member; procedures performed on Mondays and Tuesdays. Diagnoses: [...] N/A Yelitza Whitlock LPN documented in this encounterSouth[facility]07-14-2025 NoteHNO ID: [id number] Author: YELITZA WHITLOCK LPN Service: ? Author [...] screening? N/A Last Colonoscopy: N/A [facility]itza Whitlock [facility] Radiology Diagnostic study note [facility] Imaging Services [address] [place], [place] [address] Thyroid MR#: [id number] Acct: [id number] Name: MEMEABNERHAMLET ZO Rep #: [id number] : 1985 F 39 From: Pet er Peer DO PCP: Dr. Ortega Medrano MD Status: RE G CLI Study:Thyroid Date of Exam: 02/12/25 Exam# [id number] Ordering Dr: Ortega Medrano MD PROCEDURE: THYROID [...] no more than 2 nodules. Reading Location: [facility] CC: Dr. Ortega Medrano MD ~ Information Technology Professor: Signed [facility]12-04-2024 NoteHNO ID: [id number] Author: YORDY ANDERSEN MD Service: ? Author [...] MG-POTASSIUM CLAVULANATE 125 MG TABLET Yordy Andersen [facility]12-04-2024 History of Present illness Narrative* [...] TABLET Yordy Andersen MD documented in this [facility]South[facility]12-[facility]-2024 History of Present illness Narrative* Gómez [...] ROS: Review of Systems as recordedby the internist medical doctor md has been reviewed by me, and I [...] 07/29/2024 at 3:29 PM. documented in this [facility]12-03-2024 Instructions* Patient Instructions* Maryana Spivey - 07/29/2024 3:00 PM EST -Healed well. documented in this [facility]11-11-2024 History of Present illness Narrative* Gómez [...] ROS: Review of Systems as recordedby the internist medical doctor md has been reviewed by me, and I [...] 07/07/2024 at 2:51 PM. documented in this encounterSFostoria City HospitalEvaluation note* Diagnosis Onset Date Resolution Status Acne acute DVT (deep venous thrombosis) acute Menorrhagia with regular cycle acute Encounter for routine gynecological examination noneactive [facility] Work Phone: Evaluation note* Diagnosis Perianal abscess- Primary Abscess of anal and rectal regions [facility] [place]* Diagnosis Perianal abscess- Primary Abscess of anal and rectal regions documented in this encounter [facility] [place] [facility]* Diagnosis Acute non-recurrent sinusitis, unspecified location- Primary documented in this encounter [facility] noteNo assessment information availableWCleveland Clinic [facility] Work Phone: Evaluation note* Diagnosis Multinodular goiter- Primary Nontoxic multinodular goiter documented in this encounter [facility] note* Diagnosis Multinodular goiter- Primary Nontoxic multinodular goiter documented in this encounter [facility] note Author Gómez Casiano [facility] Note Date/Time May 22, 2025 8:22am [facility] [address] [place] [address] OFFICE VISIT Date of Service: 05/22/25 MR#: [id number] Acct: [id number] Name: HAMLET TEIXEIRA p #: [id number] : 1985 Provider: Dr. 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 Ortega Medrano MD ~ [facility] Work Phone: Reason for referral (narrative)No reason for referral information availableWCleveland Clinic [facility] Work Phone: Reason for visit Narrative* Consult, Test, Treat (Routine) - Closed Specialty Diagnoses / Procedures Referred By Karyna keen Referred To Contact General Surgery / GENERAL SURGERY Diagnoses Thyroid nodule fna right thyroid x2 30min Procedures FINE NEEDLE ASPIRATION BX W/O IMG GDN 1ST LESION FINE NEEDLE ASPIRATION BX W/O IMG GDN EA ADDL SURGERY 30 Baltazar Courtney MD [address] [place] [address] Phone: tel: fax: Baltazar Courtney MD [address] [place] [address] Phone: tel: fax: Referral ID Status Reason Start Date Expiration Date Visits Re quested Visits Authorized [id number] Closed 03/12/2025 08/26/2025 1 1 [facility] Summary Purpose Family History No Family History Records Found Relationship Condition Age at Onset Recorded Date/T leo grandmother Malignant neoplasm of breast Unknown father Hypertension Unknown Diabetes mellitus Unknown mother Hypertension Unknown Advance Directives No Advanced Directives Records Found Advance Directive Response Recorded Date/ Time Living Will No May 07, 2021 7:56pm Power of Infirmary Attendant No April 7:56pm Advance Directive Response Recorded Date/ Time Do you have a Healthcare Power of Infirmary Attendant? No May 12, 2025 4:47pm Hospital Course Note 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 ua y 2024 10:22am [...] and content) DATE CREATED AUTHOR 02/15/2018 [facility] ([place]) DATE CREATED AUTHOR AUTHOR'S ORGANIZ ATION 08/05/2018 [facility] DATE CREATED AUTHOR AUTHOR'S ORGANIZ ATION 08/05/2018 [facility] DATE CREATED AUTHOR AUTHOR'S ORGANIZ ATION 03/21/2019 [facility] DATE CREATED AUTHOR AUTHOR'S ORGANIZ ATION 07/31/2024 [facility] DATE CREATED AUTHOR AUTHOR'S ORGANIZ ATION 05/30/2025 [facility] DATE CREATED AUTHOR AUTHOR'S ORGANIZ ATION 06/19/2025 [facility] DATE CREATED AUTHOR AUTHOR'S ORGANIZ ATION 06/23/2025 [facility] Care Teams (unrecognized sec tion and content) Team Status: Active Member Role Status Dates SOMMER FLYNN Family Provider Active Dr. Sommer Flynn MD Primary Care Provider Active Team Status: Inactive Member Role Status Dates Dr. Sommer Flynn MD Referring Provider Active Michell Woodard STAVE BLOCK SPLITTER, STAVE BLOCK SPLITTER-C Attending Provider Active Team Status: Inactive Member Role Status Dates Michell Woodard STAVE BLOCK SPLITTER, STAVE BLOCK SPLITTER-C Attending Provider, Referring Provider Active Dr. Sommer Flynn MD Primary Care Provider Active Electrical Products Sales Engineer Relationship Specialty Start Date End Date Sommer Flynn MD [address] [place] [address] PCP - General Family Medicine 07/07/24 Electrical Products Sales Engineer Relationship Specialty Start Date End Date Sommer Flynn MD [address] [place] [address] PCP - General Family Medicine 07/07/24 Electrical Products Sales Engineer Relationship Specialty Start Date End Date Sommer Flynn MD [address] [place] [address] PCP - General Family Medicine [...] February 12, 2025 End: February 12, 2025 Electrical Products Sales Engineer Relationship Specialty Start Date End Date Sommer Flynn MD PCP - General Family Medicine 07/30/24 Electrical Products Sales Engineer Relationship Specialty Start Date End Date Ortega Medrano MD [address] [place] [address] PCP - General Family Medicine 03/09/25 Electrical Products Sales Engineer Relationship Specialty Start Date End Date Ortega Medrano MD [address] [address] PCP - General Family Medicine 03/09/25 Team [...] or prosecute any alcohol or drug abuse patient.[facility] CenterIn the event this information is protected by the Federal Confidentiality of Alcohol and Drug Abuse Patient Records regulations: The Federal rules restrict any use of the information to criminally investigate or prosecute any alcohol or drug abuse patient.[facility] CenterIn the event this information is protected by the Federal Confidentiality of Alcohol and Drug Abuse Patient Records regulations: The Federal rules restrict any use of the information to criminally investigate or prosecute any alcohol or drug abuse patient.[facility] CenterIn the event this information is protected by the Federal Confidentiality of Alcohol and Drug Abuse Patient Records regulations: The Federal rules restrict any use of the information to criminally investigate or prosecute any alcohol or drug abuse patient.[facility] FOR RECORDS PERTAINING TO PATIENTS WHO [...] BE BASED ON THE PRIMARY CLINICAL RECORDS. [employer] [facility]. provides no warranty or guarantee of the accuracy or completeness of information in this document.
[2025-06-24 08:54] LABS: Free T3 3.7 pg/mL (2.18-3.98)
== END | disposition home or self-care (01) ==
LOC: LAB 07:13
PROVIDERS: PCP Family Medicine; Referring Provider Surgery; Visit Provider Surgery
DX: Z98.890 Other specified postprocedural states (principal); Z90.89 Acquired absence of other organs
CPT/HCPCS: 36415; 84439; 84443; 84481

== ENCOUNTER → 2025-07-27 | Outpatient (CLI) | payer OTHER, SELFPAY ==
--- OUTSIDE RECORDS SUMMARY | 2025-07-27 07:31 | XMS RPT_ITS | CCD ---
Author Organization [facility] Care Team Providers Care Woven Label Designer Name Role Phone SOMMER FLYNN Unavailable Unavailable HRICS, COLT Unavailable Unavailable SOMMER FLYNN Unavailable Unavailable KAREN ARAIZA Unavailable Unavailable IMCA Unavailable Unavailable GINNA CANTU Unavailable Unavailable Dr. Sommer Flynn Referring Provider Vance SENIOR TRAINING SPECIALIST, SENIOR TRAINING SPECIALISTLibraC Michell Attending Provider Sommer Flynn MD Primary Care Provider Sommer Flynn MD Primary Care Provider GÓMEZ YOUNGER Attending Unavailable SOMMER FLYNN Primary Care Unavailable GÓMEZ YOUNGER Attending Unavailable SOMMER FLYNN Primary Care Unavailable Dr. Sommer Flynn MD Primary Care Provider [phone] Assessment, Health Risk Attending Provider Unava ilable Assessment, Health Risk Referring Provider Unava ilable Dr. Ortega Medrano MD Primary Care Provider [phone] Dr. Ortega Medrano MD Attending Provider Dr. Ortega Medrano MD Referring Provider Sommer Flynn MD Primary Care Provider Ortega Medrano MD Primary Care Provider Dr. Gómez Casiano MD Attending Provider Dr. Gómez Casiano MD Referring Provider Dr. Ortega Medrano MD Primary Care Physician Dr. Ortega Medrano MD Attending Physician [phone] Dr. Gómez Casiano MD Attending Physician Dr. Gómez Casiano MD Nurse Practitioner Dr. Gómez Casiano MD Admitting Physician MIRANDE, SOMMER E Primary Care Unavailable BALTAZAR COURTNEY Attending Unavailable SCHINNER, ORTEGA E Primary Care Unavailable SCHINNER, ORTEGA E Primary Care Unavailable BALTAZAR COURTNEY Referring Unavailable BATLAZAR COURTNEY Attending Unavailable Ortega Medrano E Referring Unavailable Gómez Casiano Attending Unavailable Schinvirgil, Ortega E Primary Care Unavailable Gómez Casiano Attending Unavailable SchinOrtega herman Referring Unavailable SchinnerOrtega E Primary Care Unavailable Mirande, Sommer Primary Care Unavailable Lali Gallagher Attending Unavailable Mirande, Sommer Referring Unavailable Schinner, Ortega E Primary Care Unavailable SchOrtega menendez Referring Unavailable Gómez Casiano Attending Unavailable Mitchell, Ortega E Primary Care Unavailable Gómez Casiano Attending Unavailable Gómez Casiano Consulting Unavailable Gómez Casiano Admitting Unavailable Gómez Casiano Referring Unavailable Ortega Medrano Primary Care Unavailable Gómez Casiano Attending Unavailable Gómez Casiano Consulting Unavailable Gómez Casiano Referring Unavailable SchOrtega menendez Primary Care Unavailable Gmóez Casiano Attending Unavailable Gómez Casiano Referring Unavailable Mirande, Sommer Attending Unavailable Mirande, Sommer Primary Care Unavailable Assessment, Health Risk Referring Unavaila ble Assessment, Health Risk Attending Unavaila ble Mirande, Sommer Primary Care Unavailable Assessment, Health Risk Referring Unavaila ble Assessment, Health Risk Attending Unavaila ble Mirande, Sommer Primary Care Unavailable Assessment, Health Risk Referring Unavaila ble Assessment, Health Risk Attending Unavaila ble Mirande, Sommer Primary Care Unavailable Mitchell, Ortega E Primary Care Unavailable Gómez Casiano Attending Unavailable Gómez Casiano Admitting Unavailable Gómez Casiano Referring Unavailable SchOrtega menendez Referring Unavailable SchOrtega menendez Attending Unavailable SchOrtega menendez Primary Care Unavailable SchOrtega menendez Referring Unavailable SchOrtega menendez Attending Unavailable Mitchell, Ortega E Primary Care Unavailable Mirande, Sommer Primary Care Unavailable Lali Gallagher Referring Unavailable Lali Gallagher Attending Unavailable Gómez Casiano Referring Unavailable Gómez Casiano Attending Unavailable Ortega Medrano Primary Care Unavailable Ortega Medrano Primary Care Unavailable Niles Rodriguez V Referring Unavailable Niles Rodriguez V Attending Unavailable Medications Current Medications Medication Drug Class(es) [...] 06, 2025 10:05am take 1 tablet by kehinde th once daily cholecalciferol (VITAMIN D-3) 50 mcg [...] once daily. 11/28/2024 Active Start: 06-27-2024 FLUoxetine (ND OZAC) 20 mg capsule Take 20 mg [...] Start: 01-09-2025 take 1 capsule by mo ut every eight hours as needed hydrOXYzine pamoate [...] daily. 1 Package 12 06/15/2015 07/30/2024 Discontinued Pwwhzsxa-Tg-Xwy-Fe-FA ( VITAMIN) tab (1 source) Start: 04-23-2014 End: 07-30-2024 take 1 tablet by mouth once daily Fwhnrise-Ae-Qyb-Fe -FA ( VITAMIN) tab Take 1 tablet [...] Comment on above: Hetero Residual codes; unclassified (2 sources) Other specified postprocedural states; Translations: [Other specified postprocedural states] Onset: 5 Episodic Residual codes; unclassified (2 sources) Acquired absence of other organs; Translations: [Acquired [...] would appear patient has a 2.2 cm [place] 5 nodule suspicious for unifocal PTC. I held a lengthy conversation today with Mrs. Teixeira regarding her surgical options. I suggested that [place] [employer] would generally recommend thyroid lobectomy [...] be able to be managed here in [place]. Lastly, I described the implications for risk [...] Interpretation Reference Range Facility Surgery Visit Reporton 06-25 Surgery Visit Report [facility] [address] [place] [address]. [address] [place] [address] OFFICE VISIT Date of Service: 06/25/25 MR#: [id number] Acct: [id number] Name: HAMLET TEIXEIRA Rep #: [id number] : 1985 Provider: Dr. Gómez pineda MD Age/Sex: 39/F Location: [facility] Status: Signed Intake Vital Signs 05/12/25 16:47 Height 5 ft 3 in Intake Visit Reasons: S/P TOTAL THYROIDECTOMY 9- Chief Complaint: s/p total thyroidectomy - Is patient in pain?: No Allergies No Known Allergies Allergy (Verified 06/25/25 09:03) Medications ???Medication ???Instructions ???Recorded ???Confirmed ???Type duloxetine 60 mg capsule,delayed 60 mg PO DAILY 07/25/23 06/25/25 H istory release drospirenone (contraceptive) 4 mg 1 tab PO DAILY #84 tabs 01/01/25 06/25/25 Rx (28) tablet (Slynd) cholecalciferol (vitamin D3) 50 50 mcg PO DAILY 05/06/25 06/25/25 History mcg (2,000 unit) tablet (Vitamin D3) hydroxyzine pamoate 25 mg capsule 25 mg PO TID PRN PRN anxiety 04/2706/25/25 History levothyroxine 137 mcg tablet 137 mcg PO QDAY 5 weeks #35 tabs 1 06/25/25 Rx (Levoxyl) Subjective Details: Patient presents following total thyroidectomy with intraoperative nerve monitoring on 05/12/2025. This represents her second postoperative visit with her first postoperative visit coming 05/22/2025 In the interim since her last visit we obtained a second opinion on her pathology given the discordance between her FNA biopsy and her final pathology. 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 She presents today denying any issues with her incision and reports that she has been using vitamin E oil daily. Her main complaint today is that her energy level is decreased???especially compared to her improved energy level postop. She confirms strict adherence to instructions with taking her levothyroxine at a present dose of 150 mcg daily. Below is recapitulated from patient's prior visit for ease of review: Since hospital discharge they have been doing [...] interruption. Objective Details: Constitutional: No acute distress, cooperative Neck: Well-healing Alonzo incision at the base of the neck. Slightly hyperpigmented. No nodularity. No tenderness with palpation. 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 Normal [facility] Free T3on 06-24-2025 Free T3 [Mass/Vol] 3.7 pg/mL Normal 2.18-3.98 [facility] Comment on above: Performed By: #### L 501.9520, L501.94620, L506.0400 #### [facility] [address] [place], [place], [address] T4 Free Directon 06-24-2025 T4 FREE DIRECT 1.70 ng/dL High 0.76-1.46 [facility] Comment on above: Performed By: #### L 501.9520, L501.67353, L506.0400 #### [facility] [address] [facility] [place], [place], [address] Thyroid Stim Hormone (TSH)on 06-24-2025 TSH 0.072 uIU/mL Low 0.300-4.20 0 [facility] Comment on above: Performed By: #### L 501.9520, L501.22420, L506.0400 #### [facility] [address] [place] [address], [address] CYTOLOGY, NON-VET TECH - FNA ONLY on 06-15-2025 CYTOLOGIC DIAGNOSIS Normal [facility] Comment on above: Result Comment: A. 2 ND OPINION CONSULTATION, CYTOLOGY - Thyroid, Right Lower Lobe, FNA ( Collected 03/16/2025): FINAL DIAGNOSIS: Atypia Of Undetermined Significance B. 2ND OPINION ADDITIONAL CONSULTATION, CYTOLOGY - Thyroid, Right Upper Middle, FNA: FINAL DIAGNOSIS: Suspicious For Papillary Thyroid Carcinoma at 1123 EDT Performed By: #### N ONGNFNA #### [facility] (DEFAULT) [address] [place] [address] Case Report Normal [facility] Comment on above: Result Comment: [facility] Cytology Report Case: [id number] Authorizing Provider: Gómez Casiano MD Collected: 06/15/2025 11:22 AM Ordering Location: [facility] Received: 06/15/2025 09:20 AM [place] Specimens: A) - THYROID FNA, Thyroid, Right Lower Lobe, FNA ( Collected 03/16/2025) B) - THYROID FNA, Thyroid, Right Upper Middle, FNA Performed By: #### N ONGNFNA #### [facility] (DEFAULT) [address] [place] [address] Clinical History Normal [facility] Comment on above: Result Comment: Rece ived is a request from Keiry Mckeon MD at [facility] for a second opinion consultation: 39 F with multiple thyroid nodules. FNA performed @[facility]: Atypia (A), Suspicious for PTC (B). Thyroidectomy @ [facility] reported as benign. Surgeon (Gómez Casiano MD) requests second opinion. Note: Afirma for Atypia (A) reported as benign. (Afirma not performed on part B). Performed By: #### N ONGNFNA #### [facility] (DEFAULT) [address] [place] [address] Gross Description Normal [facility] Comment on above: Result Comment: Subm itted from [facility], [facility] [address] are twenty two (22) slides labeled [id number]. An identifying pathology report is included along with Afirma report. Outside slides are returned in sixty (60) days under separate cover with our number recorded on them. Performed By: #### N ONGNFNA #### [facility] (DEFAULT) [address] [address] Professional Interpretation Performed at: [facility] Comment on above: Result Comment: For Immediate Release to Patient's [facility] Yes [facility] [address] [address] Performed By: #### N ONGNFNA #### [facility] (DEFAULT) [address] [address] SURG PATH REQUESTon 06-12-[address] [facility] Comment on above: Result Comment: Surg ical Pathology Report Case: [id number] Authorizing Provider: Keiry Mckeon MD Collected: 06/12/2025 02:28 PM Ordering Location: [facility] Received: 06/12/2025 02:28 PM [place] Pathologist: Meghann Carter MD Specimen: SURG PATH, Thyroid, total thyroidectomy Performed By: #### S URGP #### [facility] (DEFAULT) [address] [address] Clinical History Normal [facility] Comment on above: Result Comment: Rece ived is a request from Keiry Mckeon MD at [facility] for a second opinion consultation: 39 F with multiple thyroid nodules. FNA performed @[facility]: Atypia (A), Suspicious for PTC (B). Thyroidectomy @ [facility] reported as benign. Surgeon (Gómez Casiano MD) requests second opinion. Note: Afirma for Atypia (A) reported as benign. (Afirma not performed on part B). Performed By: #### S URGP #### [facility] (DEFAULT) [address] [address] Diagnosis Comments [facility] Comment on above: Performed By: #### S URGP #### [facility] (DEFAULT) [address] [place] [address] [address] [facility] Comment on above: Result Comment: The following material(s) are received from [facility], [address] [place] [address], with an identifying surgical pathology report as well as [facility] Cytology report ([id number]) included for review: 11 H&E slide(s) labeled [id number]. Outside materials are returned in upon completion under separate cover with our number recorded on them. Grosser for this case was: Agnes Garza Performed By: #### S URGP #### [facility] (DEFAULT) [address] [address] Microscopic Description A microscopic examination was performed. [facility] Comment on above: Performed By: #### S URGP #### [facility] (DEFAULT) [address] [address] Pathologic Diagnosis [facility] Comment on above: Result Comment: Outs trevon Slides: [id number] (05/12/25) A. 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 Background thyroid with benign follicular nodular disease and patchy chronic lymphocytic thyroiditis. at 1105 EDT Performed By: #### S URGP #### [facility] (DEFAULT) [address] [address] Professional Interpretation Performed at: [facility] Comment on above: Result Comment: Prof essional interpretation performed remotely at a secondary location, address on file. For Immediate Release to Patient's Your Last Chancehart? Yes Performed By: #### S URGP #### [facility] ([facility]) [address] [place], [place] [address] CNPLinda 05-22-2025 MALIKA Telephone (GENVirtual PortsS) HAMLET TEIXEIRA ([id number]) 1985 F [facility] [place] Date Time Provider Department 05/22/25 BALTAZAR COURTNEY [facility] During your visit today, we recorded the [...] slides. Megan provided phone number to contact [facility] pathology and informed of link for second opinion: [email or web address] [facility] andersonPlan B [email or web address] Yelitza Whitlock LPN Allergies As of Date: [...] Status:Closed by YELITZA WHITLOCK on 05/22/25 Normal [facility] Surgery Visit Reporton 05-22 Surgery Visit Report [facility] [address] [place] [address]. [address] [place] [address] OFFICE VISIT Date of Service: 05/22/25 MR#: [id number] Acct: [id number] Name: HAMLET TEIXEIRA Rep #: [id number] : 1985 Provider: Dr. 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 Normal [facility] Anion gap in Serum or Plasma Ordered By: Gómez Casiano on 05-13-2025 Anion gap [Moles/Vol] 12 mmol/L 5-15 [facility] BUN/creatinine ratioOrdered By: Gómez Casiano on 05-13-2025 Urea nitrogen/Creatinine [Mass ratio] 10.6 mg/mg 10-20 [facility] Bilirubin, totalOrdered By: Gómez Casiano on 05-13-2025 Bilirubin [Mass/Vol] 0.73 mg/dL 0.00-1.30 [facility] Carbon dioxide, total [Moles /volume] in Central venous bloodOrdered By: Gómez Casinao on 05-13-2025 CO2 [Moles/Vol] 21.6 mmol/L 21.0-32.0 [facility] Chloride assayOrdered By: Gillian Casiano on 05-13-2025 Chloride [Moles/Vol] 106 mmol/L 98-108 [facility] Comprehensive Metabolic Prof ilon 05-13-2025 Albumin [Mass/Vol] 4.0 g/dL Normal 3.5-5.0 [facility] Comment on above: Performed By: #### L 500.4050 #### [facility] [address] [place], [address] Albumin/Globulin [Mass ratio] 1.5 {ratio} Normal 0.9-2.4 [facility] Comment on above: Performed By: #### L 500.4050 #### [facility] [address] [place], [address] ALK PHOS 81 U/L Normal 35-104 [facility] Comment on above: Performed By: #### L 500.4050 #### [facility] [address] [place], [address] ALT [Catalytic activity/Vol] 63 U/L High <=34 [facility] Comment on above: Performed By: #### L 500.4050 #### [facility] [address] [place], [address] AST [Catalytic activity/Vol] 60 U/L High <=31 [facility] Comment on above: Performed By: #### L 500.4050 #### [facility] [address] [place], [address] Bilirubin [Mass/Vol] 0.73 mg/dL Normal 0.00-1.30 [facility] Comment on above: Performed By: #### L 500.4050 #### [facility] [address] [place], [address] BUN/CRE 10.6 RATIO Normal 10-20 [facility] Comment on above: Performed By: #### L 500.4050 #### [facility] [address] [place], [address] Calcium [Mass/Vol] 8.7 mg/dL Normal 7.6-11.0 [facility] Comment on above: Performed By: #### L 500.4050 #### [facility] [address] [place], [address] Chloride [Moles/Vol] 106 mmol/L Normal 98-108 [facility] Comment on above: Performed By: #### L 500.4050 #### [facility] [address] [place], [address] CO2 [Moles/Vol] 21.6 mmol/L Normal 21.0-32.0 [facility] Comment on above: Performed By: #### L 500.4050 #### [facility] [address] [place], [address] Creatinine [Mass/Vol] 0.75 mg/dL Normal 0.70-1.20 [facility] Comment on above: Performed By: #### L 500.4050 #### [facility] [address] [place], [address] ECRCL 117.01 ml/min Normal 50-250 [facility] Comment on above: Performed By: #### L 500.4050 #### [facility] [address] [place], [address] GAP 12 Normal 5-15 [facility] Comment on above: Performed By: #### L 500.4050 #### [facility] [address] [place], [address] GFR/1.73 sq M.predicted among non-blacks MDRD (S/P/Bld) [Vol rate/Area] 105 mL/min/{1.73_m2} Normal >60 [facility] Comment on above: Result Comment: mL/m in/1.73m2 CKD-EPI Creatinine Equation (2020) Performed By: #### L 500.4050 #### [facility] [address] [place], [address] Globulin (S) [Mass/Vol] 2.8 g/dL Normal 2.2-4.2 [facility] Comment on above: Performed By: #### L 500.4050 #### [facility] [address] [place], [address] Glucose [Mass/Vol] 171 mg/dL High 70-99 [facility] Comment on above: Performed By: #### L 500.4050 #### [facility] [address] [place], [address] Potassium [Moles/Vol] 3.4 mmol/L Normal 3.3-5.1 [facility] Comment on above: Performed By: #### L 500.4050 #### [facility] [address] [place], [address] Sodium [Moles/Vol] 140 mmol/L Normal 133-145 [facility] Comment on above: Performed By: #### L 500.4050 #### [facility] [address] [place], [address] T PROT 6.8 g/dL Normal 5.9-8.4 [facility] Comment on above: Performed By: #### L 500.4050 #### [facility] [address] [place], [address] Urea nitrogen [Mass/Vol] 8 mg/dL Normal 4-19 [facility] Comment on above: Performed By: #### L 500.4050 #### [facility] [address] [place], [address] Discharge Instructionon 04-27 Discharge Instruction [facility] Medical Records Department [address] [place] [address] Instructions for Home/Discharge Instructions 05/13/25 0755 MR#: [id number] Acct: [id number] Name: HAMLET TEIXEIRA Rep #: [id number] : 1985 39 From: Gómez Casiano MD [...] CC: Dr. Ortega Medrano MD Signed Normal [facility] Glomerular filtration rate ( GFR) estimation/1.73 sq m using serum, plasma, or whole bOrdered By: Gómez Casiano on 05-13-2025 GFR/1.73 sq M.predicted among non-blacks MDRD (S/P/Bld) [Vol rate/Area] 105 mL/min/{1.73_m2} >60 [place] [facility] Comment on above: mL/min/1.73m2 CKD-EP I Creatinine Equation (2020) Laboratory - Chemistry and C hemistry - challengeOrdered By: Gómez Casiano on 05-13-2025 AST [Catalytic activity/Vol] 60 U/L High <32 [facility] PTHINon 05-13-2025 PTH 58 pg/mL Normal 11-61 [facility] Comment on above: Performed By: #### L 400.7604 #### [facility] [address] [place], [address] Potassium measurement (mass/ volume)Ordered By: Gómez Casiano on 05-13-2025 Potassium (Unsp spec) [Mass/Vol] 3.4 mmol/L 3.3-5.1 [facility] Serum creatinine measurement (mass/volume)Ordered By: Gómez Casiano on 05-13-2025 Creatinine [Mass/Vol] 0.75 mg/dL 0.70-1.20 [facility] Serum globulin measurementOr dered By: Gómez Casiano on 05-13-2025 Globulin (S) [Mass/Vol] 2.8 g/dL 2.2-4.2 [facility] Serum glucose measurement (m ass/volume)Ordered By: Gómez Casiano on 05-13-2025 Glucose [Mass/Vol] 171 mg/dL High 70-99 [facility] Serum or plasma alanine gorman otransferase (ALT) measurementOrdered By: Gómez Casiano on 05-13-2025 ALT [Catalytic activity/Vol] 63 U/L High <35 [facility] Serum or plasma albumin harry urement (mass/volume)Ordered By: Gómez Casiano on 05-13-2025 Albumin [Mass/Vol] 4.0 g/dL 3.5-5.0 [facility] Serum or plasma albumin/glob ulin mass ratioOrdered By: Gómez Casiano on 05-13-2025 Albumin/Globulin [Mass ratio] 1.5 {ratio} 0.9-2.4 [facility] Serum or plasma alkaline domi sphatase measurementOrdered By: Gómez Casiano on 05-13-2025 ALP [Catalytic activity/Vol] 81 U/L 35-104 [facility] Serum or plasma calcium harry urement (mass/volume)Ordered By: Gómez Casiano on 05-13-2025 Calcium [Mass/Vol] 8.7 mg/dL 7.6-11.0 [facility] Serum or plasma urea nitroge n measurement (mass/volume)Ordered By: Gómez Casiano on 05-13-2025 Urea nitrogen [Mass/Vol] 8 mg/dL 4-19 [facility] Sodium levelOrdered By: Omer honeycutt Oh on 05-13-2025 Sodium [Moles/Vol] 140 mmol/L 133-145 [facility] Total proteinOrdered By: Sadiq molina Oh on 05-13-2025 Protein [Mass/Vol] 6.8 g/dL 5.9-8.4 [facility] MR/POSTOP.ANEon 05-12-2025 MR/POSTOP.ANE [facility] Medical Records Department [address] [place] [address] Anesthesia Postop Eval I 05/12/25 1508 MR#: [id number] Acct: [id number] Name: HAMLET TEIXEIRA Rep #: [id number] : 1985 39 From: Estella Henry CRNA PCP: Dr. Ortega Medrano MD Status:REG [facility] Y Race: C Location: [place] [address] Anesthesia: Postop Eval I Current Vital Signs [...] 1 completed: Yes 05/12/25 1510 Date Estella Henry CRNA Cosigner Signature: Date CC: Signed Normal [facility] MR/[id number] 05-12-2025 MR/POSTOPAN2 [facility] Medical Records Department [address] [place] [address] Anesthesia Postop Eval II 05/12/25 1709 MR#: [id number] Acct: [id number] Name: HAMLET TEIXEIRA Rep #: [id number] : 1985 39 From: Leighton Copeland MD PCP: Dr. Ortega Medrano MD Status:ADM BONI Y Race: C Location: [address] Anesthesia Postop Eval I Sum Postop Eval Completion status Anesthesia document: Postop Eval 1 completed: Yes Anesthesia Postop Eval I Summary Anesthesia Postop Eval I Summary: Anesthesia Postop Eval I: Assessment Summary Airway patent Yes 05/12/25 15:10 SHRIMP [email or web address].GDOTT Spontaneous unlabored Yes 05/12/25 15:10 SHRIMP TRAWLER.GDOTT respirations Mental status Awake,Calm 05/12/25 15:10 SHRIMP TRAWLER.GDOTT nausea No 05/12/25 15:10 SHRIMP TRAWLER.GDOTT Vomiting No 05/12/25 15:10 SHRIMP TRAWLER.GDOTT Anesthesia Postop Eval I: Fluid Summary Crystalloid volume administer 1,400 05/12/25 15:10 SHRIMP TRAWLER.GDOTT (ml) Colloids volume administered ( ml) Blood Product volume administered (ml) Total IV fluid infused 1,400 05/12/25 15:10 SHRIMP TRAWLER.GDOTT Anesthesia Postop Eval I: Summary Notes Anesthesia Complication No 05/12/25 15:10 SHRIMP TRAWLER.GDOTT Anesthesia Complication Comment: Post-operative progress note Anesthesia: [...] Anesthesia Complication: No 05/12/25 1721 Date Leighton Maldonado Signature: Date CC: Signed Normal [facility] Operative Reporton 5 Operative Report [facility] Medical Records Department [address] [place] [address] Operative Report 05/12/25 1448 MR#: [id number] Acct: [id number] Name: HAMLET TEIXEIRA Rep #: [id number] : 1985 39 From: Gómez Casiano MD PCP: Dr. 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 Normal [facility] PTHINon 05-12-2025 PTH 76 pg/mL High 11-61 [facility] Comment on above: Performed By: #### L 501.9520, L501.85735, L506.0400 #### [facility] Laboratory [address] [place], [place], [address] ,Urineon 05-12-2025 Beta HCG ( test) Ql (U) [facility] Comment on above: Result Comment: Canc elled via OM: patient refused Performed By: #### L 400.7600 #### [facility] Laboratory [address] [place], [place], [address] INTERNAL QC OK? [facility] Comment on above: Result Comment: Canc elled via OM: patient refused Performed By: #### L 400.7600 #### [facility] [address] [place], [place], [address] RECORD KIT LOT# [facility] Comment on above: Result Comment: Canc elled via OM: patient refused Performed By: #### L 400.7600 #### [facility] [address] [place], [address] Surgery Specimen Level Von 0 05-12-2025 Surgery Specimen Level V -------- Patient Age/Sex Location Account Attending Physician -------- HAMLET TEIXEIRA ZO 39/F MS3 [id number] Dr. Gómez Casiano MD -------- Specimen: [id number] Received: 05/12/25 Status: RYAN Jainana laura Num: [id number] Spec Type: THYROID Subm Dr: Dr. Gómez [...] ink. A definitive capsule is not identified. Filling Technician sections are submitted, to include the entirety of the nodules (approximately 90% of the specimen) as follows: A1-A4: Nodule #1A5-A7: Nodules #1 and #2A8: Nodule #3 to nodule #2, perpendicularA9: Nodule #3, perpendicular and isthmus/pyramidal rmbdA94-R68: Nodule #4 TX 05/13/2025 [facility]:[address] -------- Patient Age/Sex Location Account Attending Physician -------- PUNEETHAMLET PATHAK 39/F MS3 [id number] Dr. Gómez Casiano MD -------- ADDENDUM Addendum 2 Entered: 06/19/25 This addendum is added to incorporate an outside pathology consultation report. The case was examined at [facility] by Dr. Carter (#[id number]) and the following diagnosis was rendered. A. [...] 1 Entered: 06/11/25 Expert consultation at [facility] and correlation with the thyroid FNA performed at [facility] ([facility] [id number]) is PENDING per Dr Casiano's request. A separate report from [facility] will follow. Addendum Signed (signature on file) Dr. Keiry Mckeon MD 06/11/25900 -------- -------- Patient Age/Sex Location Account Attending Physician -------- HAMLET TEIXEIRA 39/F MS3 [id number] Dr. Gómez Casiano MD -------- Signed (signature on file) Dr. Gregorio Riggins MD 05/18/25 1331 (more content not included)... Normal [facility] Comment on above: Performed By: #### L 3400.8000 #### [facility] Laboratory [address] [place], [address] Head/Neck Soft Tissueon - Head/Neck Soft Tissue [facility] Imaging Services [address] [place], [place] [address] Head/Neck Soft Tissue MR#: [id number] Acct: [id number] Name: HAMLET TEIXEIRA Rep #: [id number] : 1985 F 39 From: Ian wang MD PCP: Dr. Ortega Medrano MD Status: REG CLI Study: Head/Neck Soft Tissue Date of Exam: 04/23/25 Exam# [id number] Ordering Dr: Gómez Casiano MD ADDENDUM by Dr. Ina Cox MD on 04/28/25 at 1320 The lymph node as a normal appearing fatty hilum and good cortical thickness. This suggests benignity. Reading Location: [facility]-1 04/28/25 1321 Date cc: Dr. Ortega [...] right side of the neck. Reading Location: [facility] CC: Dr. Ortega Medrano MD; Dr. 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 [place] [address] OFFICE VISIT Date of Service: 04/17/25 MR#: [id number] Acct: [id number] Name: HAMLET TEIXEIRA Rep #: [id number] : 1985 Provider: Dr. 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 The latter [...] problems, arth (more content not included)... Normal [facility] THYROID FNA ANALYSISo n 03-16-2025 [employer] Normal [facility] Comment on above: Order Comment: Speci men Type: SPECIMEN OBTAINED BY ASPIRATION Ordering Facility: [facility] Address: [address] [address] Result Comment: View results in Scanned Documents link when available. Performed By: #### A EVETTE #### [facility] CLIA [id number] [address] [place] [address] [place] [address] [place] CNOVon 03-16-2025 CNOV Office Visit (GENSWS ) HAMLET TEIXEIRA ([id number]) 1985 F [facility] [place] Date Time Provider Department 03/16/25 1:30 PM [...] you have any questions or concerns @ [phone]. Please make an appointment to follow up in one week with your physician and thank you for choosing the [facility]. If you note any additional difficulties, questions, or concerns, you should contact our office immediately @ [phone] and ask to be transferred to the [...] Modules accepted: Orders Referring Provider: BALTAZAR COURTNEY [[id number]] Allergies As of Date: 03/16/2025 (No Known Allergies) Date Reviewed: 03/09/2025 Reviewed by: Yelitza Whitlock LPN - Fully Assessed Primary Visit Diagnosis:Multinodular goiter [E04.2] Order(s):US THYROID BIOPSY RIGHT (POC) SURG USE ONLY [9505604] Order #: [id number]. #:[id number]: 1 CYTOLOGY NON-VET TECH [OWJ2030] Order #: [id number]. #:[id number] CYTOLOGY NON-VET TECH [WJN2104] Order #: [id number]. #:[id number] Prescriptions as of 03/17/2025 - FLUoxetine (PROZAC) [...] instructions fr (more content not included)... Normal [facility] CYTOLOGY NON-GYNon ADDENDUM 1: Normal [facility] Comment on above: Order Comment: Speci men Type: SPECIMEN OBTAINED BY ASPIRATION Ordering Facility: [facility] Address: [address] [place] [address] Result Comment: Tawny cted slides from part B has been reviewed with Dr. Rell Garcias who concurs. Addendum electronically signed by Carlito Palma MD, PhD on 05/27/2025 at 1434 EDT Performed By: #### C YTONON #### [facility] CLIA [id number] [address] [place] [address] STATES OF [facility] AP DISCLAIMER Normal [facility] Comment on above: Order Comment: Speci men Type: SPECIMEN OBTAINED BY ASPIRATION Ordering Facility: [facility] Address: [address] [place] [address] Result Comment: Darrin sarah Developed Test (LDT) Disclaimer: Performance characteristics of immunohistochemical, immunofluorescent, and chromogenic in-situ hybridization tests have been determined by the performing laboratory within [facility] Pathology and Laboratory Medicine Department ([facility], [facility], [facility], [facility], [facility], [facility], or [facility]) in a manner consistent with CLIA [...] appropriately. Performed By: #### C YTONON #### [facility] CLIA [id number] [address] [place] [address] [place] CASE REPORT Normal [facility] Comment on above: Order Comment: Speci men Type: SPECIMEN OBTAINED BY ASPIRATION Ordering Facility: [facility] Address: [address] [place] [address] Result Comment: [facility] Report Case: [id number] Authorizing Provider: Baltazar Courtney MD Collected: 03/16/2025 01:51 PM Ordering Location: General Surgery Received: 03/17/2025 07:18 AM Pathologist: Carlito Palma MD, PhD Specimens: A) - Thyroid, Right, Lobe, right lower lobe B) - Thyroid, Right, Lobe, right upper middle Performed By: #### C YTONON #### [facility] CLIA [id number] [address] [place] [address] OF [facility] CLINICAL HISTORY thyroid nodules Normal [facility] Comment on above: Order Comment: Speci men Type: SPECIMEN OBTAINED BY ASPIRATION Ordering Facility: [facility] Address: [address] [place] [address] Result Comment: Afirma received for A, B Performed By: #### C YTONON #### [facility] CLIA [id number] [address] [place] [address] FINAL DIAGNOSIS Normal [facility] Comment on above: Order Comment: Speci men Type: SPECIMEN OBTAINED BY ASPIRATION Ordering Facility: [facility] Address: [address] [place] [address] Result Comment: A - Thyroid, Right, Lobe, FNA - right lower lobe Atypia of undetermined significance. (See comment) B - Thyroid, Right, Lobe, FNA - right upper middle Suspicious for papillary thyroid carcinoma. at 1256 EDT Performed By: #### C YTONON #### [facility] CLIA [id number] [address] [place] [address] OF [place] FINAL PERFORMING LAB Normal [facility] Comment on above: Order Comment: Speci men Type: SPECIMEN OBTAINED BY ASPIRATION Ordering Facility: [facility] Address: [address] [place] [address] Result Comment: Tech nical component, retail operations manager screening performed at: [facility], [address] [place] [address] [place] [address] CLIA: [id number] Diagnostic interpretation performed at: [facility], [address] [place] [address] [place] [address] CLIA# [id number] Armament Installer: Rashaun Tavera MD Performed By: #### C YTONON #### [facility] CLIA [id number] [address] [place] [address] OF [place] GROSS DESCRIPTION Normal [facility] Comment on above: Order Comment: Speci men Type: SPECIMEN OBTAINED BY ASPIRATION Ordering Facility: [facility] Address: [address] [place] [address] Result Comment: A. T hyroid, Right, Lobe 30 cc clear colorless CytoLyt . ThinPrep prepared and 8 smears. Afirma received B. Thyroid, Right, Lobe 30 cc clear light pink CytoLyt . ThinPrep prepared and 12 smears. Afirma received Performed By: #### C YTONON #### [facility] CLIA [id number] [address] [place] [address] OF [place] ADDENDUM 1: Normal [facility] Comment on above: Order Comment: Speci men Type: SPECIMEN OBTAINED BY ASPIRATION Ordering Facility: [facility] Address: [address] [place] [address] Result Comment: Tawny cted slides from part B has been reviewed with Dr. Rell Garcias who concurs. Addendum electronically signed by Carlito Palma MD, PhD on 05/27/2025 at 1434 EDT Performed By: #### C YTONON #### [facility] CLIA [id number] [address] [place] [address] [place] AP DISCLAIMER Normal [facility] Comment on above: Order Comment: Speci men Type: SPECIMEN OBTAINED BY ASPIRATION Ordering Facility: [facility] Address: [address] [place] [address] Result Comment: Darrin sarah Developed Test (LDT) Disclaimer: Performance characteristics of immunohistochemical, immunofluorescent, and chromogenic in-situ hybridization tests have been determined by the performing laboratory within [facility] Pathology and Laboratory Medicine Department ([facility], [facility], [facility], [facility], [facility], [facility], or [facility]) in a manner consistent with CLIA [...] appropriately. Performed By: #### C YTONON #### [facility] CLIA [id number] [address] [place] [address] [place] CASE REPORT Normal [facility] Comment on above: Order Comment: Speci men Type: SPECIMEN OBTAINED BY ASPIRATION Ordering Facility: [facility] Address: [address] [place] [address] Result Comment: [facility] Report Case: [id number] Authorizing Provider: Baltazar Courtney MD Collected: 03/16/2025 01:51 PM Ordering Location: General Surgery Received: 03/17/2025 07:18 AM Pathologist: Carlito Palma MD, PhD Specimens: A) - Thyroid, Right, Lobe, right lower lobe B) - Thyroid, Right, Lobe, right upper middle Performed By: #### C YTONON #### [facility] CLIA [id number] [address] [place] [address] [place] CLINICAL HISTORY thyroid nodules Normal [facility] Comment on above: Order Comment: Speci men Type: SPECIMEN OBTAINED BY ASPIRATION Ordering Facility: [facility] Address: [address] [place] [address] Result Comment: Afirma received for A, B Performed By: #### C YTONON #### [facility] CLIA [id number] [address] [place] [address] STATES OF [facility] FINAL DIAGNOSIS Normal [facility] Comment on above: Order Comment: Speci men Type: SPECIMEN OBTAINED BY ASPIRATION Ordering Facility: [facility] Address: [address] [place] [address] Result Comment: A - Thyroid, Right, Lobe, FNA - right lower lobe Atypia of undetermined significance. (See comment) B - Thyroid, Right, Lobe, FNA - right upper middle Suspicious for papillary thyroid carcinoma. at 1256 EDT Performed By: #### C YTONON #### [facility] CLIA [id number] [address] [place] [address] STATES OF [facility] FINAL PERFORMING LAB Normal [facility] Comment on above: Order Comment: Speci men Type: SPECIMEN OBTAINED BY ASPIRATION Ordering Facility: [facility] Address: [address] [place] [address] Result Comment: Tech nical component, retail operations manager screening performed at: [facility], [address] [place] [address] CLIA: [id number] Diagnostic interpretation performed at: [facility], [address] [place] [address] CLIA# [id number] Armament Installer: Rashaun Tavera MD Performed By: #### C YTONON #### [facility] CLIA [id number] [address] [place] [address] [place] GROSS DESCRIPTION Normal [facility] Comment on above: Order Comment: Speci men Type: SPECIMEN OBTAINED BY ASPIRATION Ordering Facility: [facility] Address: [address] [place] [address] Result Comment: A. T hyroid, Right, Lobe 30 cc clear colorless CytoLyt . ThinPrep prepared and 8 smears. Afirma received B. Thyroid, Right, Lobe 30 cc clear light pink CytoLyt . ThinPrep prepared and 12 smears. Afirma received Performed By: #### C CONCHIS #### [facility] CLIA [id number] [address] [place] [address] STATES OF [place] US THYROID BIOPSY RIGHT (POC ) SURG USE ONLYon 03-16-2025 [facility] CNOVon 03-09-2025 CNOV Office Visit (GENSWS ) HAMLET TEIXEIRA ([id number]) 1985 [facility] Date Time Provider Department 03/09/25 2:45 PM BALTAZAR COURTNEYSWS During your visit today, we recorded the [...] Alcohol use: (more content not included)... Normal [facility] Thyroidon 02-12-2025 Thyroid [facility] Imaging Services [address] [place], [place] [address] Thyroid MR#: [id number] Acct: [id number] Name: HAMLET TEIXEIRA Rep #: [id number] : 1985 F 39 From: Mateo Rock DO PCP: Dr. Ortega Medrano MD Status: REG CLI Study: Thyroid Date of Exam: 02/12/25 Exam# [id number] Ordering Dr: Ortega Medrano MD PROCEDURE: THYROID [...] no more than 2 nodules. Reading Location: [facility]- CC: Dr. 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 The assay commissioned security officer has found that four percent of individuals without evidence of thyroid disease or autoimmunity will have positive TgAb levels up to 4 IU/mL. Performed By: #### L 3300.6900, L503.0106, L3300.6820, L506.1001 #### [facility] [address] [place], [address] THYROGLOB QUANT 113.2 ng/mL High 1.5-38.5 [facility] Comment on above: Order Comment: Order Date: 02/05/25 Order Info: 94254-3 - TSIMM Result Comment: Acco rding to [...] #### L 3300.6900, L503.0106, L3300.6820, L506.1001 #### [facility] [address] [place], [place], [address] Thyroid Peroxidase ABon - THYR PEROX AB < 9 Normal 0-34 [facility] Comment on above: Order Comment: Order Date: 02/05/25Order Info: 54804-9 - TSIMM Result Comment: Perf ormed at: [facility] [address] [id number] Tour Conductor: Kartik Cano MD, Phone: [phone] Performed at: [facility] [address] [id number] Tour Conductor: Rodrigo Edmondson PhD, Phone: [phone] Performed By: #### L 400.4026 #### [facility] [address] [place], [address] Thyroid Stim Immunoglobon THY STIM IMMUNO <0.10 Normal 0.00-0.55 [facility] Comment on above: Order Comment: Order Date: 02/05/25 Order Info: 83919-0 - TSIMM Performed By: #### L 3400.4700 #### [facility] [address] [place], [place], [address] Absolute lymphocyte countOrd ered By: Ortega Medrano on 02-05-2025 Lymphocytes Auto (Unsp spec) [#/Vol] 3.19 10*3/uL 0.83-4.51 [facility] Absolute neutrophil countOrd ered By: Ortega Medrano on 02-05-2025 Neutrophils (Bld) [#/Vol] 7.0 10*3/uL 2.0-7.7 [facility] Anion gap in Serum or Plasma Ordered By: Ortega Medrano on 02-05-2025 Anion gap [Moles/Vol] 12 mmol/L 5-15 [facility] Automated lymphocyte count a s percentage of total leukocytesOrdered By: Ortega Medrano on 02-05-2025 Lymphocytes/100 WBC Auto (Unsp spec) 29.0 % 19-41 [facility] BUN/creatinine ratioOrdered By: Ortega Medrano on 02-05-2025 Urea nitrogen/Creatinine [Mass ratio] 9.1 mg/mg Low 10-20 [facility] Basophil percentageOrdered B y: Ortega Medrano on 02-05-2025 Basophils/100 WBC (Bld) 0.8 % 0-1 [facility] Bilirubin, totalOrdered By: Ortega Medrano on 02-05-2025 Bilirubin [Mass/Vol] 0.31 mg/dL 0.00-1.30 [facility] CBC W/Diff, Automatedon 01-25 Absolute Lymph 3.19 X10 3/uL Normal 0.83-4.51 [facility] Comment on above: Order Comment: Order Date: 02/05/25Order Info: 0184-1 - CBCD Performed By: #### L 400.7600 #### [facility] [address] [place], [address] Absolute Neut 7.0 X10 3/uL Normal 2.0-7.7 [facility] Comment on above: Order Comment: Order Date: 02/05/25Order Info: 0184-1 - CBCD Performed By: #### L 400.7600 #### [facility] [address] [place], [address] Basophils/100 WBC (Bld) 0.8 % Normal 0-1 [facility] Comment on above: Order Comment: Order Date: 02/05/25Order Info: 0184-1 - CBCD Performed By: #### L 400.7600 #### [facility] [address] [place], [address] Eosinophils/100 WBC (Bld) 0.8 % Normal 0-5 [facility] Comment on above: Order Comment: Order Date: 02/05/25Order Info: 4-1 - CBCD Performed By: #### L 400.7600 #### [facility] [address] [place], [address] Erythrocyte distribution width (RBC) [Ratio] 11.9 % Normal 11.6-14.6 [facility] Comment on above: Order Comment: Order Date: 02/05/25Order Info: 0184-1 - CBCD Performed By: #### L 400.7600 #### [facility] [address] [place], [address] Hematocrit (Bld) [Volume fraction] 39.8 % Normal 37-47 [facility] Comment on above: Order Comment: Order Date: 02/05/25Order Info: 0184-1 - CBCD Performed By: #### L 400.7600 #### [facility] [address] [place], [address] Hemoglobin (Bld) [Mass/Vol] 13.0 g/dL Normal 12.0-15.0 [facility] Comment on above: Order Comment: Order Date: 02/05/25Order Info: 0184-1 - CBCD Performed By: #### L 400.7600 #### [facility] [address] [place], [address] IG% 0.400 Normal 0.0-0.9 [facility] Comment on above: Order Comment: Order Date: 02/05/25Order Info: 183- - CBCD Result Comment: IG% - Immature Granulocytes (promyelocytes, myelocytes and metamyelocytes) > 1% indicates that a LEFT SHIFT is Present. Performed By: #### L 400.7600 #### [facility] [address] [place], [address] Lymphocytes/100 WBC (Bld) 29.0 % Normal 19-41 [facility] Comment on above: Order Comment: Order Date: 02/05/25Order Info: 183- - CBCD Performed By: #### L 400.7600 #### [facility] [address] [place], [address] MCH (RBC) [Entitic mass] 30.2 pg Normal 27.0-32.0 [facility] Comment on above: Order Comment: Order Date: 02/05/25Order Info: 183- - CBCD Performed By: #### L 400.7600 #### [facility] [address] [place], [address] MCHC (RBC) [Mass/Vol] 32.7 g/dL Normal 32-36 [facility] Comment on above: Order Comment: Order Date: 02/05/25Order Info: 183- - CBCD Performed By: #### L 400.7600 #### [facility] [address] [place], [address] MCV (RBC) [Entitic vol] 92.3 fL Normal 81-99 [facility] Comment on above: Order Comment: Order Date: 02/05/25Order Info: 183- - CBCD Performed By: #### L 400.7600 #### [facility] [address] [place], [address] Monocytes/100 WBC (Bld) 5.7 % Normal 0-10 [facility] Comment on above: Order Comment: Order Date: 02/05/25Order Info: 4-1 - CBCD Performed By: #### L 400.7600 #### [facility] [address] [place], [address] Neutrophils/100 WBC (Bld) 63.3 % Normal 47-70 [facility] Comment on above: Order Comment: Order Date: 02/05/25Order Info: 4- - CBCD Performed By: #### L 400.7600 #### [facility] [address] [place], [address] Nucleated RBC (Bld) [#/Vol] 0 10*3/uL Normal 0-5 [facility] Comment on above: Order Comment: Order Date: 02/05/25Order Info: [id number]- - CBCD Performed By: #### L 400.7600 #### [facility] [address] [place], [address] Platelet mean volume (Bld) [Entitic vol] 9.2 fL Normal 6.2-12.0 [facility] Comment on above: Order Comment: Order Date: 02/05/25Order Info: [id number] - CBCD Performed By: #### L 400.7600 #### [facility] [address] [place], [address] Platelets (Bld) [#/Vol] 382 10*3/uL Normal 150-450 [facility] Comment on above: Order Comment: Order Date: 02/05/25Order Info: [id number] - CBCD Performed By: #### L 400.7600 #### [facility] [address] [place], [address] RBC (Bld) [#/Vol] 4.31 10*6/uL Normal 4.2-5.4 [facility] Comment on above: Order Comment: Order Date: 02/05/25Order Info: [id number] - CBCD Performed By: #### L 400.7600 #### [facility] [address] [place], [place], [address] RDW SD 40.4 fl Normal 35.1-43.9 [facility] Comment on above: Order Comment: Order Date: 02/05/25Order Info: [id number] - CBCD Performed By: #### L 400.7600 #### [facility] [address] [place], [address] WBC (Bld) [#/Vol] 11.0 10*3/uL Normal 4.4-11.0 [facility] Comment on above: Order Comment: Order Date: 02/05/25Order Info: [id number] - CBCD Performed By: #### L 400.7600 #### [facility] [address] [place], [address] Calculated very low density lipoprotein (VLDL) cholesterol measurementOrdered By: Ortega Medrano on 02-05-2025 Calculated very low density lipoprotein (VLDL) cholesterol measurement 59 mg/dL High 5-40 [facility] Carbon dioxide, total [Moles /volume] in Central venous bloodOrdered By: Ortega Medrano on 02-05-2025 CO2 [Moles/Vol] 21.7 mmol/L 21.0-32.0 [facility] Chloride assayOrdered By: Lidia Medrano on 02-05-2025 Chloride [Moles/Vol] 105 mmol/L 98-108 [facility] Comprehensive Metabolic Prof ilon 02-05-2025 Albumin [Mass/Vol] 4.2 g/dL Normal 3.5-5.0 [facility] Comment on above: Order Comment: Order Date: 02/05/25Order Info: [id number] - CMPOrder Info: [id number] - LIPIDOrder Info: [id number] - TSHOrder Info: [id number] - T4F Performed By: #### L 400.7600 #### [facility] [address] [place], [address] Albumin/Globulin [Mass ratio] 1.4 {ratio} Normal 0.9-2.4 [facility] Comment on above: Order Comment: Order Date: 02/05/25Order Info: [id number] - CMPOrder Info: [id number] - LIPIDOrder Info: [id number] - TSHOrder Info: [id number] - T4F Performed By: #### L 400.7600 #### [facility] [address] [place], [address] ALK PHOS 62 U/L Normal 35-104 [facility] Comment on above: Order Comment: Order Date: 02/05/25Order Info: [id number] - CMPOrder Info: [id number] - LIPIDOrder Info: [id number] - TSHOrder Info: [id number] - T4F Performed By: #### L 400.7600 #### [facility] [address] [place], [address] ALT [Catalytic activity/Vol] 12 U/L Normal <=34 [facility] Comment on above: Order Comment: Order Date: 02/05/25Order Info: [id number] - CMPOrder Info: [id number] - LIPIDOrder Info: [id number] - TSHOrder Info: [id number] - T4F Performed By: #### L 400.7600 #### [facility] [address] [place], [address] AST [Catalytic activity/Vol] 16 U/L Normal <=31 [facility] Comment on above: Order Comment: Order Date: 02/05/25Order Info: [id number] - CMPOrder Info: [id number] - LIPIDOrder Info: [id number] - TSHOrder Info: [id number] - T4F Performed By: #### L 400.7600 #### [facility] [address] [place], [address] Bilirubin [Mass/Vol] 0.31 mg/dL Normal 0.00-1.30 [facility] Comment on above: Order Comment: Order Date: 02/05/25Order Info: [id number] - CMPOrder Info: [id number] - LIPIDOrder Info: [id number] - TSHOrder Info: [id number] - T4F Performed By: #### L 400.7600 #### [facility] [address] [place], [address] BUN/CRE 9.1 RATIO Low 10-20 [facility] Comment on above: Order Comment: Order Date: 02/05/25Order Info: [id number] - CMPOrder Info: [id number] - LIPIDOrder Info: [id number] - TSHOrder Info: [id number] - T4F Performed By: #### L 400.7600 #### [facility] [address] [place], [address] Calcium [Mass/Vol] 9.6 mg/dL Normal 7.6-11.0 [facility] Comment on above: Order Comment: Order Date: 02/05/25Order Info: [id number] - CMPOrder Info: [id number] - LIPIDOrder Info: [id number] - TSHOrder Info: [id number] - T4F Performed By: #### L 400.7600 #### [facility] [address] [place], [address] Chloride [Moles/Vol] 105 mmol/L Normal 98-108 [facility] Comment on above: Order Comment: Order Date: 02/05/25Order Info: [id number] - CMPOrder Info: [id number] - LIPIDOrder Info: [id number] - TSHOrder Info: [id number] - T4F Performed By: #### L 400.7600 #### [facility] [address] [place], [address] CO2 [Moles/Vol] 21.7 mmol/L Normal 21.0-32.0 [facility] Comment on above: Order Comment: Order Date: 02/05/25Order Info: [id number] - CMPOrder Info: [id number] - LIPIDOrder Info: [id number] - TSHOrder Info: [id number] - T4F Performed By: #### L 400.7600 #### [facility] [address] [place], [address] Creatinine [Mass/Vol] 0.82 mg/dL Normal 0.70-1.20 [facility] Comment on above: Order Comment: Order Date: 02/05/25Order Info: [id number] - CMPOrder Info: [id number] - LIPIDOrder Info: [id number] - TSHOrder Info: [id number] - T4F Performed By: #### L 400.7600 #### [facility] [address] [place], [address] GAP 12 Normal 5-15 [facility] Comment on above: Order Comment: Order Date: 02/05/25Order Info: [id number] - CMPOrder Info: [id number] - LIPIDOrder Info: [id number] - TSHOrder Info: [id number] - T4F Performed By: #### L 400.7600 #### [facility] [address] [place], [address] GFR/1.73 sq M.predicted among non-blacks MDRD (S/P/Bld) [Vol rate/Area] 94 mL/min/{1.73_m2} Normal >60 [facility] Comment on above: Order Comment: Order Date: 02/05/25Order Info: [id number] - CMPOrder Info: [id number] - LIPIDOrder Info: [id number] - TSHOrder Info: [id number] - T4F Result Comment: mL/m in/1.73m2 CKD-EPI Creatinine Equation (2020) Performed By: #### L 400.7600 #### [facility] [address] [place], [address] Globulin (S) [Mass/Vol] 2.9 g/dL Normal 2.2-4.2 [facility] Comment on above: Order Comment: Order Date: 02/05/25Order Info: [id number] - CMPOrder Info: [id number] - LIPIDOrder Info: [id number] - TSHOrder Info: [id number] - T4F Performed By: #### L 400.7600 #### [facility] [address] [place], [address] Glucose [Mass/Vol] 93 mg/dL Normal 70-99 [facility] Comment on above: Order Comment: Order Date: 02/05/25Order Info: [id number] - CMPOrder Info: [id number] - LIPIDOrder Info: [id number] - TSHOrder Info: [id number] - T4F Performed By: #### L 400.7600 #### [facility] [address] [place], [address] Potassium [Moles/Vol] 4.1 mmol/L Normal 3.3-5.1 [facility] Comment on above: Order Comment: Order Date: 02/05/25Order Info: [id number] - CMPOrder Info: [id number] - LIPIDOrder Info: [id number] - TSHOrder Info: [id number] - T4F Performed By: #### L 400.7600 #### [facility] [address] [place], [address] Sodium [Moles/Vol] 138 mmol/L Normal 133-145 [facility] Comment on above: Order Comment: Order Date: 02/05/25Order Info: [id number] - CMPOrder Info: [id number] - LIPIDOrder Info: [id number] - TSHOrder Info: [id number] - T4F Performed By: #### L 400.7600 #### [facility] [address] [place], [address] T PROT 7.2 g/dL Normal 5.9-8.4 [facility] Comment on above: Order Comment: Order Date: 02/05/25Order Info: [id number] - CMPOrder Info: [id number] - LIPIDOrder Info: [id number] - TSHOrder Info: [id number] - T4F Performed By: #### L 400.7600 #### [facility] [address] [place], [place], [address] Urea nitrogen [Mass/Vol] 7 mg/dL Normal 4-19 [facility] Comment on above: Order Comment: Order Date: 02/05/25Order Info: [id number] - CMPOrder Info: [id number] - LIPIDOrder Info: [id number] - TSHOrder Info: [id number] - T4F Performed By: #### L 400.7600 #### [facility] [address] [place], [place], [address] Eosinophil percentageOrdered By: Ortega Medrano on 02-05-2025 Eosinophils/100 WBC (Bld) 0.8 % 0-5 [facility] Erythrocyte distribution wid th ratioOrdered By: Ortega Medrano on 02-05-2025 Erythrocyte distribution width (RBC) [Ratio] 11.9 % 11.6-14.6 [facility] Erythrocyte distribution wid th standard deviationOrdered By: Ortega Medrano on 02-05-2025 Erythrocyte distribution width (RBC) [Ratio] 40.4 fl 35.1-43.9 [facility] Glomerular filtration rate ( GFR) estimation/1.73 sq m using serum, plasma, or whole bOrdered By: Ortega Medrano on 02-05-2025 GFR/1.73 sq M.predicted among non-blacks MDRD (S/P/Bld) [Vol rate/Area] 94 mL/min/{1.73_m2} >60 [facility] Comment on above: mL/min/1.73m2 CKD-EP I Creatinine Equation (2020) Hematocrit Auto (Bld) [Volum e fraction]Ordered By: Ortega Medrano on 02-05-2025 Hematocrit (Bld) [Volume fraction] 39.8 % 37-47 [facility] Hemoglobin measurementOrdere d By: Ortega Medrano on 02-05-2025 Hemoglobin (Bld) [Mass/Vol] 13.0 g/dL 12.0-15.0 [facility] Immature granulocytes/100 WB C Auto (Bld)Ordered By: Ortega Medrano on 02-05-2025 Immature granulocytes/100 WBC (Bld) 0.400 % 0.0-0.9 [facility] Comment on above: IG% - Immature Granu locytes (promyelocytes, myelocytes and metamyelocytes) > 1% indicates that a LEFT SHIFT is Present. LDL calc ser/plasOrdered By: Ortega Medrano on 02-05-2025 Cholesterol in LDL [Mass/Vol] 111 mg/dL [facility] Comment on above: Nrffaodhbo=344-576 m g/dL & Higher Btva=195 mg/dL or greater Laboratory - Chemistry and C hemistry - challengeOrdered By: Ortega Medrano on 02-05-2025 AST [Catalytic activity/Vol] 16 U/L <32 [facility] Lipid Profileon 02-05-2025 CHOL:HDL 4.76 Normal [facility] Comment on above: Order Comment: Order Date: 02/05/25Order Info: [id number] - CMPOrder Info: [id number] - LIPIDOrder Info: [id number] - TSHOrder Info: [id number] - T4F Performed By: #### L 3400.8000 #### [facility] [address] [place], [address] Cholesterol [Mass/Vol] 215 mg/dL High <=200 [facility] Comment on above: Order Comment: Order Date: 02/05/25Order Info: [id number] - CMPOrder Info: [id number] - LIPIDOrder Info: [id number] - TSHOrder Info: [id number] - T4F Result Comment: Chol esterol level, Desirable <200 mg/dL Borderline high cholesterol 200-239 mg/dL High cholesterol >=240 mg/dL Recommendations of the NCEP Adult Treatment Panel for the following risk-cutoff thresholds for the [place] population. Performed By: #### L 3400.8000 #### [facility] [address] [place], [address] Cholesterol in HDL [Mass/Vol] 45 mg/dL Normal [facility] Comment on above: Order Comment: Order Date: 02/05/25Order Info: [id number] - CMPOrder Info: [id number] - LIPIDOrder Info: [id number] - TSHOrder Info: 7 - T4F Result Comment: Liyah onal Cholesterol Education Program (NCEP) guidelines: <40 mg/dL: Low HDL-cholesterol (major risk factor for CHD) >= 60 mg/dL: High HDL-cholesterol (negative risk factor for CHD) HDL-cholesterol is affected by a number of factors, e.g. smoking, exercise, hormones, sex and age. Performed By: #### L 3400.8000 #### [facility] [address] [place], [address] Cholesterol in LDL [Mass/Vol] 111 mg/dL Normal [facility] Comment on above: Order Comment: Order Date: 02/05/25Order Info: [id number] - CMPOrder Info: [id number] - LIPIDOrder Info: 63 - TSHOrder Info: 7 - T4F Result Comment: Bord cihvks=828-028 mg/dL Higher Cnhg=069 mg/dL or greater Performed By: #### L 3400.8000 #### [facility] [address] [place], [address] Cholesterol in VLDL [Mass/Vol] 59 mg/dL High 5-40 [facility] Comment on above: Order Comment: Order Date: 02/05/25Order Info: [id number] - CMPOrder Info: [id number] - LIPIDOrder Info: 63 - TSHOrder Info: 7 - T4F Performed By: #### L 3400.8000 #### [facility] [address] [place], [address] Triglyceride [Mass/Vol] 293 mg/dL High [facility] Comment on above: Order Comment: Order Date: 02/05/25Order Info: [id number] - CMPOrder Info: [id number] - LIPIDOrder Info: 63 - TSHOrder Info: [id number] - T4F Result Comment: The drugs N-Acetylcysteine and Metamizole may falsely depress this assay. Normal range: <150 mg/dL Borderline High: 150-199 mg/dL High: 200-499 mg/dL Very High: >500 mg/dL Performed By: #### L 3400.8000 #### [facility] [place], [address] MCV (mean corpuscular volume ) determinationOrdered By: Ortega Medrano on 02-05-2025 MCV (RBC) [Entitic vol] 92.3 fL 81-99 [facility] Mean corpuscular hemoglobin (MCH) determinationOrdered By: Ortega Medrano on 02-05-2025 MCH (RBC) [Entitic mass] 30.2 pg 27.0-32.0 [facility] Mean corpuscular hemoglobin concentration (MCHC) determinationOrdered By: Ortega Medrano on 02-05-2025 MCHC (RBC) [Mass/Vol] 32.7 g/dL 32-36 [facility] Mean platelet volume determi nationOrdered By: Ortega Medrano on 02-05-2025 Platelet mean volume (Bld) [Entitic vol] 9.2 fL 6.2-12.0 [facility] Monocyte percentageOrdered B y: Ortega Medrano on 02-05-2025 Monocytes/100 WBC (Bld) 5.7 % 0-10 [facility] Neutrophil percentageOrdered By: Ortega Medrano on 02-05-2025 Neutrophils/100 WBC (Bld) 63.3 % 47-70 [facility] Nucleated red blood cell per centageOrdered By: Ortega Medrano on 02-05-2025 Nucleated RBC/100 WBC (Bld) [Ratio] 0 % 0-5 [facility] Platelet countOrdered By: Lidia Medrano on 02-05-2025 Platelets (Bld) [#/Vol] 382 10*3/uL 150-450 [facility] Potassium measurement (mass/ volume)Ordered By: Ortega Medrano on 02-05-2025 Potassium (Unsp spec) [Mass/Vol] 4.1 mmol/L 3.3-5.1 [facility] RBC Auto (Bld) [#/Vol]Ordere d By: Ortega Medrano on 02-05-2025 RBC (Bld) [#/Vol] 4.31 10*6/uL 4.2-5.4 [facility] Screening total cholesterol/ high density lipoprotein (HDL) cholesterol ratioOrdered By: Ortega Medrano on 02-05-2025 Cholesterol.total/Cho lesterol in HDL [Mass ratio] 4.76 {ratio} [facility] Serum creatinine measurement (mass/volume)Ordered By: Ortega Medrano on 02-05-2025 Creatinine [Mass/Vol] 0.82 mg/dL 0.70-1.20 [facility] Serum globulin measurementOr dered By: Ortega Medrano on 02-05-2025 Globulin (S) [Mass/Vol] 2.9 g/dL 2.2-4.2 [facility] Serum glucose measurement (m ass/volume)Ordered By: Ortega Medrano on 02-05-2025 Glucose [Mass/Vol] 93 mg/dL 70-99 [facility] Serum or plasma alanine gorman otransferase (ALT) measurementOrdered By: Ortega Medrano on 02-05-2025 ALT [Catalytic activity/Vol] 12 U/L <35 [facility] Serum or plasma albumin harry urement (mass/volume)Ordered By: Ortega Medrano on 02-05-2025 Albumin [Mass/Vol] 4.2 g/dL 3.5-5.0 [facility] Serum or plasma albumin/glob ulin mass ratioOrdered By: Ortega Medrano on 02-05-2025 Albumin/Globulin [Mass ratio] 1.4 {ratio} 0.9-2.4 [facility] Serum or plasma alkaline domi sphatase measurementOrdered By: Ortega Medrano on 02-05-2025 ALP [Catalytic activity/Vol] 62 U/L 35-104 [facility] Serum or plasma calcium harry urement (mass/volume)Ordered By: Ortega Medrano on 02-05-2025 Calcium [Mass/Vol] 9.6 mg/dL 7.6-11.0 [facility] Serum or plasma cholesterol in HDL measurement (mass/volume)Ordered By: Ortega Medrano on 02-05-2025 Cholesterol in HDL [Mass/Vol] 45 mg/dL >40 [facility] Comment on above: National Cholesterol Education Program (NCEP) guidelines:<40 mg/dL: Low HDL-cholesterol (major risk factor for CHD)>= 60 mg/dL: High HDL-cholesterol (negative risk factor for CHD)HDL-cholesterol is affected by a number of factors, e.g. smoking, exercise, hormones, sex and age. Serum or plasma cholesterol measurement (mass/volume)Ordered By: Ortega Medrano on 02-05-2025 Cholesterol [Mass/Vol] 215 mg/dL High <201 [facility] Comment on above: Cholesterol level, D esirable <200 mg/dLBorderline high cholesterol 200-239 mg/dLHigh cholesterol >=240 mg/dLRecommendations of the NCEP Adult Treatment Panel for the following risk-cutoff thresholds for the [place] population. Serum or plasma thyroperoxid ase antibody assay (units/volume)Ordered By: Ortega Medrano on 02-05-2025 TPO Ab Qn [IU]/mL 0-34 [facility] Comment on above: Performed at: [address] [id number] Director: Kartik Cano MD, Phone: [phone] at: [facility] [id number] Director: Rodrigo Edmondson PhD, Phone: [phone] Serum or plasma urea nitroge n measurement (mass/volume)Ordered By: Ortega Medrano on 02-05-2025 Urea nitrogen [Mass/Vol] 7 mg/dL 4-19 [facility] Sodium levelOrdered By: Ortega Medrano on 02-05-2025 Sodium [Moles/Vol] 138 mmol/L 133-145 [facility] T4 Free Directon 02-05-2025 T4 FREE DIRECT 1.00 ng/dL Normal 0.76-1.46 [facility] Comment on above: Order Comment: Order Date: 02/05/25Order Info: [id number] - CMPOrder Info: [id number] - LIPIDOrder Info: [id number] - TSHOrder Info: [id number] - T4F Performed By: #### L 400.7600 #### [facility] [place], [address] T4 freeOrdered By: Ortega doran on 02-05-2025 Free T4 [Mass/Vol] 1.00 ng/dL 0.76-1.46 [facility] TSH DL <= 0.005 mIU/L QnOrde red By: Ortega Medrano on 02-05-2025 TSH Qn 1.840 uIU/mL 0.300-4.20 0 [facility] Thyroid Stim Hormone (TSH)on 02-05-2025 TSH 1.840 uIU/mL Normal 0.300-4.20 0 [facility] Comment on above: Order Comment: Order Date: 02/05/25Order Info: [id number] - CMPOrder Info: [id number] - LIPIDOrder Info: [id number] - TSHOrder Info: [id number] - T4F Performed By: #### L 400.7600 #### [facility] [address] [place], [address] Thyroid stimulating immunogl obulins detectionOrdered By: Ortega Medrano on 02-05-2025 Thyroid stimulating immunoglobulins Ql (S) <0.10 IU/L 0.00-0.55 [facility] Total proteinOrdered By: Jose Medrano on 02-05-2025 Protein [Mass/Vol] 7.2 g/dL 5.9-8.4 [facility] Triglycerides measurementOrd ered By: Ortega Medrano on 02-05-2025 Triglyceride [Mass/Vol] 293 mg/dL High <199 [facility] Comment on above: The drugs N-Acetylcy steine and Metamizole may falsely depress this assay. Normal range: <150 mg/dLBorderline High: 150-199 mg/dLHigh: 200-499 mg/dLVery High: >500 mg/dL Vitamin B12on 02-05-2025 Cobalamin (Vitamin B12) [Mass/Vol] 356 pg/mL Normal 180-914 [facility] Comment on above: Order Comment: Order Date: 02/05/25 Order Info: [id number] - CMP Order Info: [id number] - LIPID Order Info: [id number] - TSH Order Info: [id number] - T4F Performed By: #### L 3300.6900, L503.0106, L3300.6820, L506.1001 #### [facility] [address] [place], [place], [address] Vitamin B12 ser/plasOrdered By: Ortega Medrano on 02-05-2025 Cobalamin (Vitamin B12) [Mass/Vol] 356 pg/mL 180-914 [facility] Vitamin D,25 Hydroxyon 02-05 Vitamin D 25-OH 35.6 ng/mL Normal 30-100 [facility] Comment on above: Order Comment: Order Date: 02/05/25 Order Info: [id number] - CMP Order Info: [id number] - LIPID Order Info: [id number] - TSH Order Info: [id number] - T4F Result Comment: [place] min D Status Deficiency: <20 ng/mL (50nmol/L) Insufficiency: 20-30 ng/mL (50-75 nmol/L) Sufficiency: 30-100 ng/mL (75-250 nmol/L) Toxicity: >100 ng/mL (>250 nmol/L) Performed By: #### L 3300.6900, L503.0106, L3300.6820, L506.1001 #### [facility] [address] [place], [address] White blood cell (WBC) count Ordered By: Ortega Medrano on 02-05-2025 WBC (Bld) [#/Vol] 11.0 10*3/uL 4.4-11.0 [facility] Absolute lymphocyte countOrd ered By: HEALTH ASSESSMENT on 11-15-2024 Lymphocytes Auto (Unsp spec) [#/Vol] 2.85 10*3/uL 0.83-4.51 [facility] Absolute neutrophil countOrd ered By: HEALTH ASSESSMENT on 11-15-2024 Neutrophils (Bld) [#/Vol] 5.7 10*3/uL 2.0-7.7 [facility] Absolute nucleated red blood cell countOrdered By: HEALTH ASSESSMENT on 11-15-2024 Nucleated RBC (Bld) [#/Vol] 0.00 10*3/uL 0-5 [facility] Anion gap in Serum or Plasma Ordered By: HEALTH ASSESSMENT on 11-15-2024 Anion gap [Moles/Vol] 9 mmol/L 5-15 [facility] BUN/creatinine ratioOrdered By: HEALTH ASSESSMENT on 11-15-2024 Urea nitrogen/Creatinine [Mass ratio] 14.5 mg/mg 10-20 [facility] Bilirubin directOrdered By: HEALTH ASSESSMENT on 11-15-2024 Bilirubin.direct [Mass/Vol] 0.14 mg/dL 0.00-0.30 [facility] Bilirubin, totalOrdered By: HEALTH ASSESSMENT on 11-15-2024 Bilirubin [Mass/Vol] 0.37 mg/dL 0.00-1.30 [facility] Blood band neutrophil count as percentage of total leukocytesOrdered By: HEALTH ASSESSMENT on 11-15-2024 Band form neutrophils/100 WBC (Bld) 61.9 % 47-70 [facility] CBC, Employeeon 11-15-2024 Absolute Lymph 2.85 X10 3/uL Normal 0.83-4.51 [facility] Comment on above: Performed By: #### L 400.7600 #### [facility] [address] [place], [address] Absolute Neut 5.7 X10 3/uL Normal 2.0-7.7 [facility] Comment on above: Performed By: #### L 400.7600 #### [facility] [address] [place], [address] Basophils/100 WBC (Bld) 0.8 % Normal 0-1 [facility] Comment on above: Performed By: #### L 400.7600 #### [facility] [address] [place], [address] Eosinophils/100 WBC (Bld) 1.4 % Normal 0-5 [facility] Comment on above: Performed By: #### L 400.7600 #### [facility] [address] [place], [address] Erythrocyte distribution width (RBC) [Ratio] 12.1 % Normal 11.6-14.6 [facility] Comment on above: Performed By: #### L 400.7600 #### [facility] [address] [place], [address] Hematocrit (Bld) [Volume fraction] 39.9 % Normal 37-47 [facility] Comment on above: Performed By: #### L 400.7600 #### [facility] [address] [place], [address] Hemoglobin (Bld) [Mass/Vol] 13.2 g/dL Normal 12.0-15.0 [facility] Comment on above: Performed By: #### L 400.7600 #### [facility] [address] [place], [address] Lymphocytes/100 WBC (Bld) 30.9 % Normal 19-41 [facility] Comment on above: Performed By: #### L 400.7600 #### [facility] [address] [place], [address] MCH (RBC) [Entitic mass] 30.6 pg Normal 27.0-32.0 [facility] Comment on above: Performed By: #### L 400.7600 #### [facility] [address] [place], [address] MCHC (RBC) [Mass/Vol] 33.1 g/dL Normal 32-36 [facility] Comment on above: Performed By: #### L 400.7600 #### [facility] [address] [place], [address] MCV (RBC) [Entitic vol] 92.4 fL Normal 81-99 [facility] Comment on above: Performed By: #### L 400.7600 #### [facility] [address] [place], [address] Monocytes/100 WBC (Bld) 4.7 % Normal 0-10 [facility] Comment on above: Performed By: #### L 400.7600 #### [facility] [address] [place], [address] Neutrophils/100 WBC (Bld) 61.9 % Normal 47-70 [facility] Comment on above: Performed By: #### L 400.7600 #### [facility] [address] [place], [address] NRBC # 0.00 10 3/uL Normal 0-5 [facility] Comment on above: Performed By: #### L 400.7600 #### [facility] [address] [place], [address] Nucleated RBC (Bld) [#/Vol] 0 10*3/uL Normal 0-5 [facility] Comment on above: Performed By: #### L 400.7600 #### [facility] [address] [place], [address] Platelet mean volume (Bld) [Entitic vol] 8.8 fL Normal 6.2-12.0 [facility] Comment on above: Performed By: #### L 400.7600 #### [facility] [address] [place], [address] Platelets (Bld) [#/Vol] 354 10*3/uL Normal 150-450 [facility] Comment on above: Performed By: #### L 400.7600 #### [facility] [address] [place], [address] RBC (Bld) [#/Vol] 4.32 10*6/uL Normal 4.2-5.4 [facility] Comment on above: Performed By: #### L 400.7600 #### [facility] [address] [place], [address] RDW SD 41.0 fl Normal 35.1-43.9 [facility] Comment on above: Performed By: #### L 400.7600 #### [facility] [address] [place], [place], [address] WBC (Bld) [#/Vol] 9.2 10*3/uL Normal 4.4-11.0 [facility] Comment on above: Performed By: #### L 400.7600 #### [facility] [address] [place], [place], [id number] Calculated very low density lipoprotein (VLDL) cholesterol measurementOrdered By: HEALTH ASSESSMENT on 11-15-2024 Calculated very low density lipoprotein (VLDL) cholesterol measurement 41 mg/dL High 5-40 [facility] Carbon dioxide, total [Moles /volume] in Central venous bloodOrdered By: HEALTH ASSESSMENT on 11-15-2024 CO2 [Moles/Vol] 23.0 mmol/L 21.0-32.0 [facility] Chloride assayOrdered By: HE ALTH ASSESSMENT on 11-15-2024 Chloride [Moles/Vol] 106 mmol/L 98-108 [facility] Employee Profileon Cholesterol in LDL [Mass/Vol] 133 mg/dL High 0-130 [facility] Comment on above: Performed By: #### L 400.7600 #### [facility] [address] [facility] [place], [place], [id number] Erythrocyte distribution wid th ratioOrdered By: HEALTH ASSESSMENT on 11-15-2024 Erythrocyte distribution width (RBC) [Ratio] 12.1 % 11.6-14.6 [facility] Erythrocyte distribution wid th standard deviationOrdered By: HEALTH ASSESSMENT on 11-15-2024 Erythrocyte distribution width (RBC) [Ratio] 41.0 fl 35.1-43.9 [facility] Glomerular filtration rate ( GFR) estimation/1.73 sq m using serum, plasma, or whole bOrdered By: HEALTH ASSESSMENT on 11-15-2024 GFR/1.73 sq M.predicted among non-blacks MDRD (S/P/Bld) [Vol rate/Area] 95 mL/min/{1.73_m2} >60 [facility] Comment on above: mL/min/1.73m2 CKD-EP I Creatinine Equation (2020) Hematocrit Auto (Bld) [Volum e fraction]Ordered By: HEALTH ASSESSMENT on 11-15-2024 Hematocrit (Bld) [Volume fraction] 39.9 % 37-47 [facility] Hemoglobin measurementOrdere d By: HEALTH ASSESSMENT on 11-15-2024 Hemoglobin (Bld) [Mass/Vol] 13.2 g/dL 12.0-15.0 [facility] - Chemistry and C hemistry - challengeOrdered By: HEALTH ASSESSMENT on 11-15-2024 AST [Catalytic activity/Vol] 12 U/L <32 [facility] Lactate dehydrogenase (LDH) measurementOrdered By: HEALTH ASSESSMENT on 11-15-2024 LDH [Catalytic activity/Vol] 168 U/L 84-246 [facility] Low density lipoprotein (LDL ) cholesterol measurementOrdered By: HEALTH ASSESSMENT on 11-15-2024 Cholesterol in LDL [Mass/Vol] 133 mg/dL High 0-130 [facility] MCV (mean corpuscular volume ) determinationOrdered By: HEALTH ASSESSMENT on 11-15-2024 MCV (RBC) [Entitic vol] 92.4 fL 81-99 [facility] Mean corpuscular hemoglobin (MCH) determinationOrdered By: HEALTH ASSESSMENT on 11-15-2024 MCH (RBC) [Entitic mass] 30.6 pg 27.0-32.0 [facility] Mean corpuscular hemoglobin concentration (MCHC) determinationOrdered By: HEALTH ASSESSMENT on 11-15-2024 MCHC (RBC) [Mass/Vol] 33.1 g/dL 32-36 [facility] Mean platelet volume determi nationOrdered By: HEALTH ASSESSMENT on 11-15-2024 Platelet mean volume (Bld) [Entitic vol] 8.8 fL 6.2-12.0 [facility] Nucleated red blood cell per centageOrdered By: HEALTH ASSESSMENT on 11-15-2024 Nucleated RBC/100 WBC (Bld) [Ratio] 0 % 0-5 [facility] Platelet countOrdered By: HE ALTH ASSESSMENT on 11-15-2024 Platelets (Bld) [#/Vol] 354 10*3/uL 150-450 [facility] Potassium measurement (mass/ volume)Ordered By: HEALTH ASSESSMENT on 11-15-2024 Potassium (Unsp spec) [Mass/Vol] 4.3 mmol/L 3.3-5.1 [facility] RBC Auto (Bld) [#/Vol]Ordere d By: HEALTH ASSESSMENT on 11-15-2024 RBC (Bld) [#/Vol] 4.32 10*6/uL 4.2-5.4 [facility] Screening total cholesterol/ high density lipoprotein (HDL) cholesterol ratioOrdered By: HEALTH ASSESSMENT on 11-15-2024 Cholesterol.total/Cho lesterol in HDL [Mass ratio] 4.65 {ratio} [facility] Serum creatinine measurement (mass/volume)Ordered By: HEALTH ASSESSMENT on 11-15-2024 Creatinine [Mass/Vol] 0.82 mg/dL 0.70-1.20 [facility] Serum globulin measurementOr dered By: HEALTH ASSESSMENT on 11-15-2024 Globulin (S) [Mass/Vol] 2.9 g/dL 2.2-4.2 [facility] Serum glucose measurement (m ass/volume)Ordered By: HEALTH ASSESSMENT on 11-15-2024 Glucose [Mass/Vol] 98 mg/dL 70-99 [facility] Serum or plasma alanine gorman otransferase (ALT) measurementOrdered By: HEALTH ASSESSMENT on 11-15-2024 ALT [Catalytic activity/Vol] 8 U/L <35 [facility] Serum or plasma albumin harry urement (mass/volume)Ordered By: HEALTH ASSESSMENT on 11-15-2024 Albumin [Mass/Vol] 4.0 g/dL 3.5-5.0 [facility] Serum or plasma albumin/glob ulin mass ratioOrdered By: HEALTH ASSESSMENT on 11-15-2024 Albumin/Globulin [Mass ratio] 1.4 {ratio} 0.9-2.4 [facility] Serum or plasma alkaline domi sphatase measurementOrdered By: HEALTH ASSESSMENT on 11-15-2024 ALP [Catalytic activity/Vol] 58 U/L 35-104 [facility] Serum or plasma calcium harry urement (mass/volume)Ordered By: HEALTH ASSESSMENT on 11-15-2024 Calcium [Mass/Vol] 9.0 mg/dL 7.6-11.0 [facility] Serum or plasma cholesterol in HDL measurement (mass/volume)Ordered By: HEALTH ASSESSMENT on 11-15-2024 Cholesterol in HDL [Mass/Vol] 48 mg/dL >40 [facility] Comment on above: National Cholesterol Education Program (NCEP) guidelines:<40 mg/dL: Low HDL-cholesterol (major risk factor for CHD)>= 60 mg/dL: High HDL-cholesterol (negative risk factor for CHD)HDL-cholesterol is affected by a number of factors, e.g. smoking, exercise, hormones, sex and age. Serum or plasma cholesterol measurement (mass/volume)Ordered By: HEALTH ASSESSMENT on 11-15-2024 Cholesterol [Mass/Vol] 222 mg/dL High <201 [facility] Comment on above: Cholesterol level, D esirable <200 mg/dLBorderline high cholesterol 200-239 mg/dLHigh cholesterol >=240 mg/dLRecommendations of the NCEP Adult Treatment Panel for the following risk-cutoff thresholds for the [place] population. Serum or plasma urea nitroge n measurement (mass/volume)Ordered By: HEALTH ASSESSMENT on 11-15-2024 Urea nitrogen [Mass/Vol] 12 mg/dL 4-19 [facility] Serum or plasma uric acid me asurement (mass/volume)Ordered By: [facility] ASSESSMENT on 11-15-2024 Urate [Mass/Vol] 3.9 mg/dL 2.6-6.0 [facility] Comment on above: The drugs N-Acetylcy steine and Metamizole may falsely depress this assay. Sodium levelOrdered By: [facility] ASSESS[facility] on 11-15-2024 Sodium [Moles/Vol] 138 mmol/L 133-145 [facility] Total proteinOrdered By: [facility] ASSESSMENT on 11-15-2024 Protein [Mass/Vol] 6.9 g/dL 5.9-8.4 [facility] Triglycerides measurementOrd ered By: HEALTH ASSESSMENT on 11-15-2024 Triglyceride [Mass/Vol] 207 mg/dL High <199 [facility] Comment on above: The drugs N-Acetylcy steine and Metamizole may falsely depress this assay. Normal range: <150 mg/dLBorderline High: 150-199 mg/dLHigh: 200-499 mg/dLVery High: >500 mg/dL White blood cell (WBC) count Ordered By: HEALTH ASSESSMENT on 11-15-2024 WBC (Bld) [#/Vol] 9.2 10*3/uL 4.4-11.0 [facility] Quantiferon TB-Gold+on 10-30 QFT MITOGEN GERBER > 10.00 Normal . [facility] Comment on above: Order Comment: REDRA W Performed By: #### L 400.7600 #### [facility] [address] [place], [address] QFT NIL VALUE 0.08 IU/mL Normal . [facility] Comment on above: Order Comment: REDRA W Performed By: #### L 400.7600 #### [facility] [address] [place], [address] QFT TB GOLD+ Comment Normal . [facility] Comment on above: Order Comment: REDRA W [...] test. Performed By: #### L 400.7600 #### [facility] [address] [place], [address] QFT TB POS CRIT Negative Normal Negative [facility] Comment on above: Order Comment: REDRA W [...] interferon gamma. Chemiluminescence immunoassay methodology Performed at: [address] [id number] Tour Conductor: Rodrigo Edmondson PhD, Phone: [phone] Performed By: #### L 400.7600 #### [facility] [address] [place], [address] QFT TB1+ AG GERBER 0.16 IU/mL Normal . [facility] Comment on above: Order Comment: REDRA W Performed By: #### L 400.7600 #### [facility] [address] [place], [address] QFT TB2+ AG GERBER 0.18 IU/mL Normal . [facility] Comment on above: Order Comment: REDRA W Performed By: #### L 400.7600 #### [facility] [address] [place], [place], [facility] Qualitative QuantiFERON-TB g old in tube testOrdered By: HEALTH ASSESSMENT on 10-25-2024 M. tuberculosis tuberculin stim IFN-g Ql (Bld) 0.16 IU/mL . [facility] Quantiferon TB-Gold+on 10-23 QFT MITOGEN GERBER Normal [facility] Comment on above: Result Comment: left in incubator too long Performed By: #### L 3400.8000 #### [facility] [address] [place], [place], [facility] QFT NIL VALUE Normal [facility] Comment on above: Result Comment: left in incubator too long Performed By: #### L 3400.8000 #### [facility] [address] [place], [place], [facility] QFT TB GOLD+ Normal [facility] Comment on above: Result Comment: left in incubator too long Performed By: #### L 3400.8000 #### [facility] [address] [place], [address] QFT TB POS CRIT Normal [facility] Comment on above: Result Comment: left in incubator too long Performed By: #### L 3400.8000 #### [facility] [address] [place], [address] QFT TB1+ AG GERBER Normal [facility] Comment on above: Result Comment: left in incubator too long Performed By: #### L 3400.8000 #### [facility] [address] [place], [address] QFT TB2+ AG GERBER Normal [facility] Comment on above: Result Comment: left in incubator too long Performed By: #### L 3400.8000 #### [facility] [address] [place], [address] PAP IG HPV APTIMA 16/18,45on 08-04-2024 ADEQ Comment Normal . [facility] Comment on above: Order Comment: Speci men Comment: [id number] Comment: No. of containers..01 ThinPrep Vial Result Comment: Sati sfactory for evaluation. Endocervical and/or squamous metaplastic cells (endocervical component) are present. Performed By: #### L 501.9520, L501.30817, L506.0400 #### [facility] [address] [place], [address] COMM . Normal . [facility] Comment on above: Order Comment: Speci deuce Comment: [id number] Comment: No. of containers..01 ThinPrep Vial Performed By: #### L 501.9520, L501.51221, L506.0400 #### [facility] [address] [place], [address] COMMENT Comment Normal . [facility] Comment on above: Order Comment: Speci men Comment: [id number] Comment: No. of containers..01 ThinPrep Vial Result Comment: This liquid based ThinPrep(R) pap test was screened with the use of an image guided system. Performed By: #### L 501.9520, L501.64771, L506.0400 #### [facility] [address] [place], [address] DIAG Comment Normal . [facility] Comment on above: Order Comment: Speci men Comment: [id number] Comment: No. of containers..01 ThinPrep Vial Result Comment: NEGA TIVE FOR INTRAEPITHELIAL LESION OR MALIGNANCY. Performed By: #### L 501.9520, L501.64517, L506.0400 #### [facility] [address] [place], [address] HPV APTIMA, HR Negative Normal Negative [facility] Comment on above: Order Comment: Speci men Comment: [id number] Comment: No. of containers..01 ThinPrep Vial Result Comment: This nucleic acid amplification test detects fourteen high- risk HPV types (16,18,31,33,35,39,45,51,52,56,58,59,66,68) without differentiation. Performed By: #### L 501.9520, L501.76891, L506.0400 #### [facility] [address] [place], [address] HPV Mi Rfx Comment Normal . [facility] Comment on above: Order Comment: Speci men Comment: [id number] Comment: No. of containers..01 ThinPrep Vial Result Comment: Crit eria not met, HPV Genotype not performed. Performed at: [facility] [address] [place], [place] [id number] Tour Conductor: Jeovanny Slade MD, Phone: [phone] Performed at: - [address] [id number] Tour Conductor: Magalie Benítez MD, Phone: [phone] Performed at: = - [address] [id number] Tour Conductor: Magalie Benítez MD, Phone: [phone] Performed By: #### L 501.9520, L501.51174, L506.0400 #### [facility] [address] [place], [place], [address] PAPSMR Comment Normal . [facility] Comment on above: Order Comment: Speci men Comment: [id number] Comment: No. of containers..01 ThinPrep Vial Result Comment: The Pap smear is a screening test designed to aid in the detection of premalignant and malignant conditions of the uterine cervix. It is not a diagnostic procedure and should not be used as the sole means of detecting cervical cancer. Both false-positive and false-negative reports do occur. Performed By: #### L 501.9520, L501.98830, L506.0400 #### [facility] [address] [place], [place], [address] PERFORM Comment Normal . [facility] Comment on above: Order Comment: Speci men Comment: [id number] Comment: No. of containers..01 ThinPrep Vial Result Comment: Joslyn Tolentino, Sterilizer Machine Operator (ASCP) Performed By: #### L 501.9520, L501.12267, L506.0400 #### [facility] [address] [place], [place], [id number] CNOVon 07-30-2024 CNOV Office Visit (UCTR ) HAMLET TEIXEIRA ([id number]) 1985 F [facility] [place] Date Time Provider Department 07/30/24 3:15 PM YORDY ANDERSEN [facility] During your visit today, we recorded [...] Medications Discontinued During This Encounter Prescriptions - Ehvdfugd-Ye-Mug-Fe-FA ( VITAMIN) tab (Discontinued) Reported on 07/30/2024 - fenugreek seed extract 500 mg cap (Discontinued) Reported on 07/30/2024 - Breast Pump mynor (Discontinued) Reported on 07/30/2024 - Breast Pump mynor (Discontinued) Reported on 07/30/2024 - OLIVEIRA'S YEAST ORAL (Discontinued) Reported on 07/30/2024 - Norethindrone, Contraceptive, (ORTHO MICRONOR) 0.35 mg tablet (Discontinued) Reported on 07/30/2024 Level of Service: OFFICE/OUTPATIENT [facility] 30 MINUTES [71032] Encounter Status:Closed by YORDY ANDERSEN on 07/30/24 [facility] 37on 07-29-2024 37 -Healed well. Normal [facility] Office Visiton 07-29-2024 Follow-up visit [id number] Hamlet Teixeira 1985 F Date Provider Department Center 07/29/2024 [facility] Family History Family Status - Relation Status Age at Mother Alive Father Alive Brother Alive Daughter Alive Son Level of Service:11572 ND POSTOP FOLLOW UP VISIT RELATED TO ORIGINAL PX Reason for Visit and Comments: Follow-up [099014] - follow up to perianal abscess drainage in office 07/07/24-antibiotic course. Other [0] - Pt unaccompanied Normal [facility] Progress Noteon 07-29-2024 Progress Note @ASSESSMENTBEGINPHAN [...] Review of Systems as recordedby the medical office manager has been reviewed by me, and I [...] at 3:29 PM. 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 Normal [facility] Office Visiton 07-07-2024 Follow-up visit [id number] Hamlet Teixeira 1985 F Date Provider Department Center 07/07/2024 [facility] [place] Family History Family Status - Relation Status Age at Mother Alive Father Alive Brother Alive Daughter Alive Son Level of Service:27409 ND OFFICE/OUTPT VISIT,PROCEDURE ONLY Reason for Visit and Comments: New Patient [542] - Evaluation for perianal abscess referring Dr. Guerra Other [0] - Pt unaccomapnied Normal [facility] Progress Noteon 07-07-2024 Progress Note @ASSESSMENTBEGINPHAN [...] Review of Systems as recordedby the medical office manager has been reviewed by me, and I [...] at 2:51 PM. Normal [facility] Absolute lymphocyte countOrd ered By: Michell Woodard on 09-19-2023 Lymphocytes Auto (Unsp spec) [#/Vol] 2.61 10*3/uL 0.83-4.51 [facility] Automated lymphocyte count a s percentage of total leukocytesOrdered By: Michell Jamestings on 09-19-2023 Lymphocytes/100 WBC Auto (Unsp spec) 36.7 % 19-41 [facility] Basophil percentageOrdered B y: Michell Jamestings on 09-19-2023 Basophils/100 WBC (Bld) 1.0 % 0-1 [facility] Bilirubin [Mass/Vol] 0.50 mg/dL 0.20-1.00 [facility] Comment on above: For patients on eltr ombopag therapy, use of Dimension [place] TBIL is not recommended. Chloride [Moles/Vol] 113 mmol/L 98-107 [facility] Cholesterol [Mass/Vol] 210 mg/dL <200 [facility] Comment on above: <200 mg/dL Desirable 200-240 mg/dL Borderline >240 mg/dL High Risk Eosinophils/100 WBC (Bld) 3.4 % 0-5 [facility] Glucose [Mass/Vol] 104 mg/dL 74-106 [facility] Comment on above: Fasting Glucose resu lt from 100 to 125 mg/dL suggests IMPAIRED HOMEOSTASIS per A.D.A. criteria. Hemoglobin (Bld) [Mass/Vol] 12.6 g/dL 12.0-15.0 [facility] Monocytes/100 WBC (Bld) 6.3 % 0-10 [facility] Neutrophils (Bld) [#/Vol] 3.7 10*3/uL 2.0-7.7 [facility] Neutrophils/100 WBC (Bld) 52.3 % 47-70 [facility] Potassium [Moles/Vol] 3.9 mmol/L 3.5-5.1 [facility] Protein [Mass/Vol] 7.3 g/dL 6.4-8.2 [facility] Sodium [Moles/Vol] 140 mmol/L 136-145 [facility] Triglyceride [Mass/Vol] 170 mg/dL <199 [facility] Comment on above: The drugs N-Acetylcy steine and Metamizole may falsely depress this assay.Serum Triglycerides Reference Interval Normal <150 mg/dL Borderline high 150 - 199 mg/dL High 200 - 499 mg/dL Very High > or = 500 mg/dL WBC (Bld) [#/Vol] 7.1 10*3/uL 4.4-11.0 [facility] Determination of erythrocyte mean corpuscular volume (MCV)Ordered By: Michell Woodard on 09-19-2023 MCV (RBC) [Entitic vol] 90.1 fL 81-99 [facility] Erythrocyte distribution wid th ratioOrdered By: Michell Woodard on 09-19-2023 Erythrocyte distribution width (RBC) [Ratio] 12.7 % 11.6-14.6 [facility] Erythrocyte distribution wid th standard deviationOrdered By: Michell Woodard on 09-19-2023 Erythrocyte distribution width (RBC) [Entitic vol] 41.9 fL 35.1-43.9 [facility] Hematocrit Auto (Bld) [Volum e fraction]Ordered By: Michell Woodard on 09-19-2023 Hematocrit (Bld) [Volume fraction] 39.2 % 37-47 [facility] High density lipoprotein (HD L) measurementOrdered By: Michell Woodard on 09-19-2023 Cholesterol in HDL (Body fld) [Mass/Vol] 41 mg/dL >40 [facility] Comment on above: The drugs N-Acetylcy steine and Metamizole may falsely depress this assay. Reference Range HDL <40 mg/dL Low HDL Cholesterol HDL >or= 60 mg/dL High HDL Cholesterol Immature granulocytes/100 WB C Auto (Bld)Ordered By: Michell Woodard on 09-19-2023 Immature granulocytes/100 WBC (Bld) 0.300 % 0.0-0.9 [facility] Comment on above: IG% - Immature Granu locytes (promyelocytes, myelocytes and metamyelocytes) > 1% indicates that a LEFT SHIFT is Present. Laboratory - Chemistry and C hemistry - challengeOrdered By: Michell Woodard on 09-19-2023 Albumin/Globulin [Mass ratio] 0.9 {ratio} 0.9-2.4 [facility] ALP [Catalytic activity/Vol] 68 U/L 45-117 [facility] ALT [Catalytic activity/Vol] 34 U/L 13-56 [facility] CO2 [Moles/Vol] 25.0 mmol/L 21.0-32.0 [facility] Globulin (S) [Mass/Vol] 3.9 g/dL 2.2-4.2 [facility] Urea nitrogen/Creatinine [Mass ratio] 12.3 mg/mg 10-20 [facility] Laboratory - Hematology and Cell countsOrdered By: Michell Woodard on 09-19-2023 MCH (RBC) [Entitic mass] 29.0 pg 27.0-32.0 [facility] MCHC (RBC) [Mass/Vol] 32.1 g/dL 32-36 [facility] Nucleated RBC/100 WBC (Bld) [Ratio] 0 % 0-5 [facility] Platelets (Bld) [#/Vol] 304 10*3/uL 150-450 [facility] Low density lipoprotein (LDL ) cholesterol measurementOrdered By: Michell Woodard on 09-19-2023 Cholesterol in LDL (Body fld) [Moles/Vol] 135 mg/dL 0-130 [facility] No Panel InformationOrdered By: Michell Woodard on 09-19-2023 Vitamin D 25-Hydroxy 23.2 ng/mL [facility] Comment on above: Vitamin D 25(OH) Sta tus Range Deficiency <20 ng/mL (50nmol/L) Insufficiency 20 - 30 ng/mL (50 - 75 nmol/L) Sufficiency 30 - 100 ng/mL (75 - 250 nmol/L) Toxicity >100 ng/mL (>250 nmol/L) Estimated GFR (MDRD) Amer 102 mL/min >60 [facility] Comment on above: GFR Calc Estimated GFR (MDRD) Non-Af Amer 84 mL/min >60 [facility] Comment on above: Non- GFR Calc Platelet mean volume Rafael-Ec ker (Bld) [Entitic vol]Ordered By: Michell Woodard on 09-19-2023 Platelet mean volume (Bld) [Entitic vol] 8.6 fL 6.2-12.0 [facility] RBC Auto (Bld) [#/Vol]Ordere d By: Michell Woodard on 09-19-2023 RBC (Bld) [#/Vol] 4.35 10*6/uL 4.2-5.4 [facility] Serum or plasma calcium harry urement (mass/volume)Ordered By: Michell Woodard on 09-19-2023 Calcium [Mass/Vol] 9.0 mg/dL 8.5-10.1 [facility] Serum or plasma creatinine m easurement (mass/volume)Ordered By: Michell Woodard on 09-19-2023 Creatinine [Mass/Vol] 0.81 mg/dL 0.55-1.02 [facility] Comment on above: The validity of the calculated GFR & GFRAA in patients over 70 years has not been determined. Clinical correlation is essential. Serum or plasma thyroid stim ulating hormone (TSH) measurement (units/volume)Ordered By: Michell Woodard on 09-19-2023 TSH Qn 1.55 uIU/mL 0.358-3.74 [facility] Serum or plasma thyroperoxid ase antibody assay (units/volume)Ordered By: Michell Woodard on 09-19-2023 TPO Ab Qn [IU]/mL 0-34 [facility] Comment on above: Performed at: [address] [id number] Director: Rodrigo Edmondson PhD, Phone: [phone] Serum or plasma urea nitroge n measurement (mass/volume)Ordered By: Michell Woodard on 09-19-2023 Urea nitrogen [Mass/Vol] 10 mg/dL 7-18 [facility] Thin prep Papanicolaou smear with manual screeningOrdered By: Michell Woodard on 01-24-2024 Thin prep Papanicolaou smear with manual screening 0.80 ng/dL 0.76-1.46 [facility] Thin prep Papanicolaou smear with manual screening 3.4 g/dL 3.2-5.0 [facility] Thin prep Papanicolaou smear with manual screening 20 U/L 15-37 [facility] Thin prep Papanicolaou smear with manual screening 2 5-15 [facility] Very low density lipoprotein (VLDL) cholesterol measurementOrdered By: Michell Woodard on 09-19-2023 Cholesterol in VLDL Calc [Moles/Vol] 34 mg/dL 5-40 [facility] Whole blood hemoglobin A1c/t otal hemoglobin ratio (mass fraction)Ordered By: Michell Woodard on 09-19-2023 HbA1c (Bld) [Mass fraction] 5.5 % 3.8-5.6 [facility] Comment on above: Normal < 5.7 % Predi abetic 5.7 - 6.4 % Diabetic >or= 6.5 % Please note range changes. CBCon 02-07-2019 Erythrocyte distribution width (RBC) [Ratio] 12.0 % Normal 11-14.5 [facility] Comment on above: Order Comment: Ankushu s: M Performed By: #### L 500.60445, L500.75037, L500.43684, L500.31435 #### [facility] [address] [place] [address] Hematocrit (Bld) [Volume fraction] 37.4 % Normal 35.0-47.0 [facility] Comment on above: Order Comment: Campu s: M Performed By: #### L 500.88410, L500.71917, L500.95754, L500.54153 #### [facility] [address] [place] [address] Hemoglobin (Bld) [Mass/Vol] 12.2 g/dL Normal 11.5-15.5 [facility] Comment on above: Order Comment: Campu s: M Performed By: #### L 500.19873, L500.33975, L500.94723, L500.37927 #### [facility] [address] [place] [address] MCHC (RBC) [Mass/Vol] 32.6 g/dL Normal 32.0-36.0 [facility] Comment on above: Order Comment: Campu s: M Performed By: #### L 500.56498, L500.44519, L500.61283, L500.89176 #### [facility] [address] [place] [address] MCV (RBC) [Entitic vol] 91.9 fL Normal 80.0-99.0 [facility] Comment on above: Order Comment: Campu s: M Performed By: #### L 500.48014, L500.26089, L500.97969, L500.56221 #### [facility] [address] [place] [address] Nucleated RBC/100 WBC (Bld) [Ratio] 0.0 % Normal Less than 1 [facility] Comment on above: Order Comment: Campu s: M Performed By: #### L 500.94757, L500.21356, L500.25723, L500.55812 #### [facility] [address] [place] [address] Platelet mean volume (Bld) [Entitic vol] 8.7 fL Low 9.4-12.4 [facility] Comment on above: Order Comment: Campu s: M Performed By: #### L 500.46457, L500.98639, L500.01931, L500.31016 #### [facility] [address] [place] [address] Platelets (Bld) [#/Vol] 280 K/CU MM Normal 150-450 [facility] Comment on above: Order Comment: Campu s: M Performed By: #### L 500.91943, L500.18262, L500.17807, L500.15733 #### [facility] [address] [place] [address] RBC (Bld) [#/Vol] 4.07 M/CU MM Normal 3.90-5.30 [facility] Comment on above: Order Comment: Campu s: M Performed By: #### L 500.83455, L500.83106, L500.72951, L500.07187 #### [facility] [address] [place] [address] WBC (Bld) [#/Vol] 18.7 K/CUMM High 4.5-11.0 [facility] Comment on above: Order Comment: Campu s: M Performed By: #### L 500.46320, L500.70207, L500.89723, L500.23315 #### [facility] [address] [place] [address] CONS.ONCon 02-07-2019 CONS.ONC [facility] Patient Name: HAMLET TEIXEIRA [address] [place] [address] Date of : [address] [address] Unit Number: [id number] CONSULTATION-ONC Patient Status: ADM IN Attending Doctor: [...] week. 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 Allergies Coded Allergies: NO [...] 99 02/07 08 O2 Delivery NASAL CANNULA 02/08 800 O2 Flow Rate 2 02/07 0800 B/P 121/63 02/07 0700 Temp 98.2 02/07 0700 Pulse 98 02/07 0700 Resp 19 02/07 07 Physical Exam Summary General: Patient is alert [...] Time Mode Bell MD Verified/Reviewed by 02/07/19 9183 Shai Brown CNP Verified/Reviewed by 02/07/19 1218 [facility] CONSULTATION-ONC [facility] PROG IMSon 02-07-2019 PROG [facility] Patient Name: HAMLET TEIXEIRA [address] [employer] [address] Date of : [address] [facility] Unit Number: [id number] Progress Note-Hospitalist Patient Status: DIS IN Attending [...] They did not recommend thrombophilia work-up. Consulted VET TECH for removal of the NuvaRing. Patient is [...] Margaret Luna MD Verified/Reviewed by 02/11/19 0938 Normal [facility] Progress Note-Hospitalist Normal [facility] BMPon 02-06-2019 Anion gap [Moles/Vol] 7 mmol/L Normal 5-16 [facility] Comment on above: Order Comment: Campu s: M Performed By: #### L 500.92198, L500.55741, L500.79631 #### [facility] [place] [address] Calcium [Mass/Vol] 8.8 mg/dL Normal 8.5-10.1 [facility] Comment on above: Order Comment: Campu s: M Performed By: #### L 500.31623, L500.48461, L500.17644 #### [facility] [address] [place], [place] [address] Chloride [Moles/Vol] 106 mmol/L Normal 98-107 [facility] Comment on above: Order Comment: Campu s: M Performed By: #### L 500.90198, L500.52310, L500.28313 #### [facility] [place] [address] CO2 [Moles/Vol] 26 mmol/L Normal 21-32 [facility] Comment on above: Order Comment: Campu s: M Performed By: #### L 500.35358, L500.78284, L500.02988 #### [facility] [address] [place] [address] Creatinine [Mass/Vol] 0.820 mg/dL Normal 0.510- 0.95 0 [facility] Comment on above: Order Comment: Campu s: M Result Comment: Kathy ents receiving either N-Acetylcysteine (NAC) or Metamizole prior to venipuncture, may have falsely depressed results. Performed By: #### L 500.06431, L500.12145, L500.06760 #### [facility] [address] [place] [address] Glucose [Mass/Vol] 83 mg/dL Normal 70-100 [facility] Comment on above: Order Comment: Campu s: M Result Comment: 70-1 00- Normal Fasting; 100-125 Impaired Fasting; greater than 126 on more than one result- Diabetes. ADA guidelines. Results may be falsely elevated after the administration of Sulfapyridine. Results may be falsely depressed after the administration of Sulfasalazine. Performed By: #### L 500.17402, L500.94812, L500.07043 #### [facility] [address] [place] [address] Potassium [Moles/Vol] 4.3 mmol/L Normal 3.5-5.1 [facility] Comment on above: Order Comment: Campu s: M Performed By: #### L 500.29662, L500.87999, L500.08909 #### [facility] [address] [place] [address] Sodium [Moles/Vol] 138 mmol/L Normal 136-145 [facility] Comment on above: Order Comment: Campu s: M Performed By: #### L 500.58335, L500.77933, L500.36511 #### [facility] [address] [place], [place] [address] Urea nitrogen [Mass/Vol] 11 mg/dL Normal 7-26 [facility] Comment on above: Order Comment: Campu s: M Performed By: #### L 500.98327, L500.67429, L500.69488 #### [facility] [address] [place] [address] Urea nitrogen/Creatinine [Mass ratio] 14 mg/mg Low 15-24 [facility] Comment on above: Order Comment: Campu s: M Performed By: #### L 500.45275, L500.02706, L500.86815 #### [facility] [address] [place] [address] CBC W/DIFFon 02-06-2019 BASO ABS 0.10 K/CU MM Normal 0-0.2 [facility] Comment on above: Order Comment: Campu s: M Performed By: #### L 200.03250 #### [facility] [address] [place] [address] Basophils/100 WBC (Bld) 0.5 % Normal 0-2 [facility] Comment on above: Order Comment: Campu s: M Performed By: #### L 200.57564 #### [facility] [address] [place] [address] EOS ABS 0.20 K/CU MM Normal 0-0.5 [facility] Comment on above: Order Comment: Campu s: M Performed By: #### L 200.61680 #### [facility] [address] [place] [address] Eosinophils/100 WBC (Bld) 1.0 % Normal 0-5 [facility] Comment on above: Order Comment: Campu s: M Performed By: #### L 200.04487 #### [facility] [address] [place] [address] Erythrocyte distribution width (RBC) [Ratio] 12.2 % Normal 11-14.5 [facility] Comment on above: Order Comment: Campu s: M Performed By: #### L 200.33234 #### [facility] [address] [place] [address] Hematocrit (Bld) [Volume fraction] 42.5 % Normal 35.0-47.0 [facility] Comment on above: Order Comment: Campu s: M Performed By: #### L 200.23067 #### [facility] [address] [place] [address] Hemoglobin (Bld) [Mass/Vol] 13.5 g/dL Normal 11.5-15.5 [facility] Comment on above: Order Comment: Campu s: M Performed By: #### L 200.96935 #### [facility] [address] [place] [address] IMMATR GRAN ABS 0.10 K/CU MM Normal Less than 2 [facility] Comment on above: Order Comment: Campu s: M Performed By: #### L 200.98437 #### [facility] [address] [place] [address] IMMATURE GRAN % 0.6 % Normal Less than 2 [facility] Comment on above: Order Comment: Campu s: M Performed By: #### L 200.67838 #### [facility] [address] [place] [address] Lymphocytes (Bld) [#/Vol] 4.40 K/CU MM Normal 0.9-4.4 [facility] Comment on above: Order Comment: Campu s: M Performed By: #### L 200.33191 #### [facility] [address] [place] [address] Lymphocytes/100 WBC (Bld) 20.1 % Normal 20-40 [facility] Comment on above: Order Comment: Campu s: M Performed By: #### L 200.28752 #### [facility] [address] [place] [address] MCHC (RBC) [Mass/Vol] 31.8 g/dL Low 32.0-36.0 [facility] Comment on above: Order Comment: Campu s: M Performed By: #### L 200.34674 #### [facility] [address] [place] [address] MCV (RBC) [Entitic vol] 92.0 fL Normal 80.0-99.0 [facility] Comment on above: Order Comment: Campu s: M Performed By: #### L 200.78746 #### [facility] [address] [place] [address] MONO ABS 1.20 K/CU MM High 0.1-1.1 [facility] Comment on above: Order Comment: Campu s: M Performed By: #### L 200.73072 #### [facility] [address] [place] [address] Monocytes/100 WBC (Bld) 5.7 % Normal 2-10 [facility] Comment on above: Order Comment: Campu s: M Performed By: #### L 200.55198 #### [facility] [address] [place] [address] NEUTROPHIL ABS 15.60 K/CU MM High 2.0-8.3 [facility] Comment on above: Order Comment: Campu s: M Performed By: #### L 200.41690 #### [facility] [address] [place] [address] Neutrophils/100 WBC (Bld) 72.1 % Normal 45-75 [facility] Comment on above: Order Comment: Campu s: M Performed By: #### L 200.27249 #### [facility] [address] [place] [address] Nucleated RBC/100 WBC (Bld) [Ratio] 0.0 % Normal Less than 1 [facility] Comment on above: Order Comment: Campu s: M Performed By: #### L 200.94511 #### [facility] [address] [place] [address] Platelet mean volume (Bld) [Entitic vol] 8.6 fL Low 9.4-12.4 [facility] Comment on above: Order Comment: Campu s: M Performed By: #### L 200.89812 #### [facility] [address] [place] [address] Platelets (Bld) [#/Vol] 300 K/CU MM Normal 150-450 [facility] Comment on above: Order Comment: Campu s: M Performed By: #### L 200.51239 #### [facility] [address] [place] [address] RBC (Bld) [#/Vol] 4.62 M/CU MM Normal 3.90-5.30 [facility] Comment on above: Order Comment: Campu s: M Performed By: #### L 200.43413 #### [facility] [place] [address] WBC (Bld) [#/Vol] 21.7 K/CUMM High 4.5-11.0 [facility] Comment on above: Order Comment: Campu s: M Performed By: #### L 200.83078 #### [facility] [address] [place] [address] CDLECHOon 02-06-2019 CDLECHO INTERPRETING PHYSICI AN: Tammy [...] ventricle has normal dimensions. The visually estimated [facility] PATIENT NAME: HAMLET TEIXEIRA Carisa Pham MEDICAL REC #: [id number] [place] [address] ADMIT DATE: 02/06/19 DISCHARGE DATE: 02/08/19 ATTENDING [...] mitral and tricuspid regurgitation. Tammy Henson MD [id number] [facility] File#: [id number] Verified/Reviewed by [id number] PATIENT NAME: HAMLET TEIXEIRA Carisa Pham MEDICAL REC #: [id number] [place] [address] ADMIT DATE: 02/06/19 DISCHARGE DATE: 02/08/19 ATTENDING PHY: Sia Ashton MD ECHOCARDIOGRAM REPORT Normal [facility] ECHOCARDIOGRAM REPORT Normal [facility] CT ANG THOR W/POST PROCon CT ANG [...] PENA M.D. Signed By: SCOTT PENA M.D. Normal [facility] [place] 02-06-2019 EMERGENCY PHYSICIAN REPORT This is a preliminary report only, as the practitioner review and authentication has not occurred. Normal [facility] ER PHYSICIAN ASSESSMENT RECORDS : FlexChartData Event Time: 02/06/2019 20:55 Status: Signed [facility] Hamlet Teixeira [[id number]] Attending Physician 1985 Chart (V2b) Chart created at 02/06/2019 20:14 by Ryan Saldana Chart closed at 02/06/2019 20:22 Entry in Emergency Department at 02/06/2019 16:42 Patient Name: Hamlet Teixeira Record Number: [id number] Date: 02/06/2019 20:14 Entered Department at: 02/06/2019 [...] Elements: Onset: Days ago; Timing: Sudden Onset; [facility] PATIENT NAME: HAMLET TEIXEIRA [address] [facility] [place] [facility] [address] Pham MEDICAL REC #: [id number] [place] [address] EMERGENCY DEPARTMENT REPORT EMERGENCY DEPARTMENT PHYSICIAN Quality: [...] 21.7* andgt;------andlt; 300 / 42.5 / N:72.1 [facility] PATIENT NAME: HAMLET TEIXEIRA [address] [facility] [place] [facility] [address] Pham MEDICAL REC #: [id number] [place] [address] EMERGENCY DEPARTMENT REPORT EMERGENCY DEPARTMENT PHYSICIAN BASO [...] thick axial images of the thorax were [facility] PATIENT NAME: HAMLET TEIXEIRA [address] [facility] [place] [facility] [address] Pham MEDICAL REC #: [id number] [place] [address] EMERGENCY DEPARTMENT REPORT EMERGENCY DEPARTMENT PHYSICIAN obtained [...] to small emboli in the right lung. [facility] PATIENT NAME: HAMLET TEIXEIRA [address] [facility] [place] [facility] [address] Pham MEDICAL REC #: [id number] [place] [address] EMERGENCY DEPARTMENT REPORT EMERGENCY DEPARTMENT PHYSICIAN ---- [...] for Admit: Acute multiple bilateral pulmonary emboli.. [facility] PATIENT NAME: HAMLET TEIXEIRA Dr. Pham MEDICAL REC #: [id number] [place] [address] EMERGENCY DEPARTMENT REPORT EMERGENCY DEPARTMENT PHYSICIAN Disposition: Admitted at 06 Feb 2019, 20:22. MSE completed. I was the primary ED attending.. 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 Patient: HAMLET TEIXEIRA Sex: F : 1985 Age: 33 yr Account No: [id number] Registration Date: 16:42 02/06/2019 Address: [address] [place] [address] Address: [place] [address] REGISTRATION ED Number: [id number] Marital Status: M Financial Class: PPO TRIAGE Priority: 3 - Urgent Complaint: Shortness of Breath Stated Complaint: PT PRESENTS WITH LEFT ARM PAIN AND SHORTNESS OF BREATH/ SENT BY PCP TO R/O PE Arrival Date: 02/06/2019 16:42 Triage Date: 02/06/2019 16:42 Mode of Arrival: *Privately Owned Vehicle Transfer From: * Home WC: N Language: Haitian [facility] PATIENT NAME: HAMLET TEIXEIRA [facility] MEDICAL REC #: [id number] [place] [address] EMERGENCY DEPARTMENT REPORT EMERGENCY DEPARTMENT PHYSICIAN Transport: [...] PROVIDERS FORREST Cole Provider Contact: 02/06/2019 17:39:07 RUSSEL End: LORIRE AVENDANO Provider Contact: 02/06/2019 18:24:30 SERAFIN End: MD Ryan Saldana Provider Contact: 02/06/2019 20:05:12 [facility] End: IRINA GLEZ Provider Contact: 02/06/2019 21:32:56 ACU End: TRIAGE HISTORY ALLERGIES [facility] PATIENT NAME: HAMLET TEXIEIRA P [address]isa Pham MEDICAL REC #: [id number] [place] [address] EMERGENCY DEPARTMENT REPORT EMERGENCY DEPARTMENT PHYSICIAN Allergic To: No Known Allergies - 02/06/2019 16:44 [facility] CURRENT MEDS Name: NUVARING VAGINAL RING - VAG 02/06/2019 19:04 SERAFIN Name: per pt 02/06/19 02/06/2019 19:04 SERAFIN Name: NAPROXEN 250MG TABLET - PO 02/06/2019 19:04 SERAFIN Freq: PRN ILLNESS Illness: *None 02/06/2019 16:44 [facility] PAST SURGERY HIST Surgery: Cholecystectomy 02/06/2019 16:44 [facility] PAST SOCIAL HIST Social History: Behavior age appropriate 02/06/2019 16:44 [facility] Social History: Communicates without difficulty 02/06/2019 16:44 [facility] Social History: Lives with family or significant other 02/06/2019 16:44 [facility] Social History: Alcohol - None 02/06/2019 16:44 [facility] Social History: Smoker-None 02/06/2019 16:44 [facility] Social History: Recreational Drugs - None 02/06/2019 16:44 [facility] Social History: Have you traveled in the past month? 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 ASHTON called at 200702/06/2019 20:14 [facility] 02/06/2019 20:13 Physician Call - Dr. ASHTON answered at 200702/06/2019 20:14 [facility] 02/06/2019 20:59 Medication Verification - Heparin dose verified at bedside with Candice Ocampo RN 02/06/2019 21:02 SERAFIN 02/06/2019 21:16 Medication Verification - Heparin dose verified at bedside with Tasha MCDONALD 02/06/2019 21:17 [facility] MEDICATIONS IV [facility] PATIENT NAME: HAMLET TEIXEIRA P [address] [facility] [place] [facility] [address] Pham MEDICAL REC #: [id number] [place] [address] EMERGENCY DEPARTMENT REPORT EMERGENCY DEPARTMENT PHYSICIAN IV [...] Sa02: 99 Room Air 02/06/2019 19:02 SERAFIN [facility] PATIENT NAME: HAMLET TEIXEIRA [address] [facility] [place] [facility] [address] Pham MEDICAL REC #: [id number] [place] [address] EMERGENCY DEPARTMENT REPORT EMERGENCY DEPARTMENT PHYSICIAN VS-Pain [...] (IV)*(30mg/ml) DOSE: 15 mg IV 02/06/2019 20:46 [facility] PATIENT NAME: HAMLET TEIXEIRA [facility] [place] [facility] [address] Pham MEDICAL REC #: [id number] [place] [address] EMERGENCY DEPARTMENT REPORT EMERGENCY DEPARTMENT PHYSICIAN N/A [...] Ryan Saldana Noted Time: 02/06/2019 20:39 SERAFIN BILLING REPRESENTATIVE ORDER: GFRP 02/06/2019 18:32 None Ordered: 02/06/2019 18:32 Completed Time: 02/06/2019 18:32 Results Time: 02/06/2019 18:32 BILLING REPRESENTATIVE ORDER: POCTROP 02/06/2019 18:22 None Ordered: 02/06/2019 18:22 Completed Time: 02/06/2019 18:22 Results Time: 02/06/2019 18:22 IV hep lock 02/06/2019 18:03 N/A Ordered: 02/06/2019 17:45 By Jenna Cole Completed Time: 02/06/2019 18:03 By Jenna Cole IV NS bolus 1L over 60 min 02/06/2019 19:01 [facility] PATIENT NAME: HAMLET TEIXEIRA [address] [facility] [place] [facility] [address] Pham MEDICAL REC #: [id number] [place] [address] EMERGENCY DEPARTMENT REPORT EMERGENCY DEPARTMENT PHYSICIAN N/A [...] 02/06/2019 18:03 ANF Results Time: 02/06/2019 18:32 [facility] PATIENT NAME: HAMLET TEIXEIRA [address] [facility] [place] [facility] [address] Pham MEDICAL REC #: [id number] [place] [id number] EMERGENCY DEPARTMENT REPORT EMERGENCY DEPARTMENT PHYSICIAN Duplex [...] To: *Bed Type - Telemetry Admit Physician: Ims, Hospitalists PRESCRIPTIONS CHARGES 0.9% NS 1000cc bag QTY @ 1 02/06/2019 19:03 SERAFIN Auto Generated Charge SIGNATURE Ryan MEIER CHAVO DE [place] [facility] RN P Jenna [facility] PATIENT NAME: HAMLET TEIXEIRA Dr. MEDICAL REC #: [id number] [place] [address] EMERGENCY DEPARTMENT REPORT EMERGENCY DEPARTMENT PHYSICIAN XI AVENDANO SERAFIN [facility] PATIENT NAME: YENIREGINAHAMLET Dr. MEDICAL REC #: [id number] [place] [address] EMERGENCY DEPARTMENT REPORT EMERGENCY DEPARTMENT PHYSICIAN [facility] ESTon 02-06-2019 IF AMER Greater than 60 Normal [facility] Comment on above: Order Comment: Campu s: M Performed By: #### L 500.98090, L500.80288, L500.21973 #### [facility] [address] [address] IF non-AFR AMER Greater than 60 Normal [facility] Comment on above: Order Comment: Campu s: M Performed By: #### L 500.76813, L500.43603, L500.55811 #### [facility] [address] [place] [address] 33886 HCGon 02-06-2019 HCG Qn Negative Normal NEGATIVE [facility] Comment on above: Order Comment: Campu s: M Performed By: #### L 500.53407, L500.17101, L500.60266 #### [facility] [address] [place] [address] HP.[email or web address] 02-06-2019 Admission-H&P Normal [facility] HP.IMS.ADM [facility] Patient Name: HAMLET TEIXEIRA [address] [place] [address] Date of : [address] [address] Unit Number: [id number] Admission-HandP Patient Status: REG ER Attending Doctor: [...] her and son. She works as a [employer]. She does work third shift as a [...] Recent Impressions COMPUTERIZED TOMOGRAPHY - CT ANG [place] W/POST PROC 02/07 1940 Report Impression - [...] Time Sia Ashton MD Verified/Reviewed by 02/06/19 9615 Normal [facility] [place] TROPONIN I POCon 02-06-2019 Troponin I.cardiac [Mass/Vol] 0.00 ng/mL Normal 0.0-0.06 [facility] Comment on above: Result Comment: 0.0 - 0.06 NG/ML - NON-DIAGNOSTIC (REFERENCE RANGE) 0.07 - 0.59 NG/ML - INDETERMINATE Greater than or equal to 0.6 NG/ML - INDICATIVE OF MYOCARDIAL DAMAGE VLVDon 02-06-2019 VENOUS DUPLEX REPORT Normal [facility] VASCULAR MEDSTREAMIN G REPORT Patient: HAMLET TEIXEIRA Account [id number] Ordering Phy: MR: [id number] Reason for Visit: PULMONARY EMBOLISM Date of [...] Full Report is available via link to [employer] in PCI under [employer] Lab Image Viewer. * [facility] PATIENT NAME: HAMLET TEIXEIRA P [address] [facility] [address] Pham MEDICAL REC #: [id number] [place] [address] ADMIT DATE: 02/06/19 DISCHARGE DATE: VENOUS DUPLEX REPORT ATTENDING PHY: Sia Ashton MD Electronically Signed by: Rupesh Sharp MD Esign Date: 02/07/19 Normal [facility] CBC W/DIFFon 10-11-2018 BASO ABS 0.10 K/CU MM Normal 0-0.2 [facility] Comment on above: Performed By: #### L 200.20064 #### [facility] [address] [place] [address] Basophils/100 WBC (Bld) 0.8 % Normal 0-2 [facility] Comment on above: Performed By: #### L 200.85833 #### [facility] [address] [place] [address] EOS ABS 0.10 K/CU MM Normal 0-0.5 [facility] Comment on above: Performed By: #### L 200.37492 #### [facility] [address] [place] [address] Eosinophils/100 WBC (Bld) 1.3 % Normal 0-5 [facility] Comment on above: Performed By: #### L 200.09894 #### [facility] [address] [place] [address] Erythrocyte distribution width (RBC) [Ratio] 12.0 % Normal 11-14.5 [facility] Comment on above: Performed By: #### L 200.25221 #### [facility] [address] [place] [address] Hematocrit (Bld) [Volume fraction] 37.9 % Normal 35.0-47.0 [facility] Comment on above: Performed By: #### L 200.82142 #### [facility] [address] [place] [address] Hemoglobin (Bld) [Mass/Vol] 12.5 g/dL Normal 11.5-15.5 [facility] Comment on above: Performed By: #### L 200.19207 #### [facility] [address] [place] [address] IMMATR GRAN ABS 0.00 K/CU MM Normal Less than 2 [facility] Comment on above: Performed By: #### L 200.05647 #### [facility] [address] [place] [address] IMMATURE GRAN % 0.4 % Normal Less than 2 [facility] Comment on above: Performed By: #### L 200.03468 #### [facility] [address] [place] [address] Lymphocytes (Bld) [#/Vol] 3.20 K/CU MM Normal 0.9-4.4 [facility] Comment on above: Performed By: #### L 200.64375 #### [facility] [address] [place] [address] Lymphocytes/100 WBC (Bld) 31.3 % Normal 20-40 [facility] Comment on above: Performed By: #### L 200.57346 #### [facility] [address] [place] [address] MCHC (RBC) [Mass/Vol] 33.0 g/dL Normal 32.0-36.0 [facility] Comment on above: Performed By: #### L 200.84295 #### [facility] [address] [place] [address] MCV (RBC) [Entitic vol] 90.0 fL Normal 80.0-99.0 [facility] Comment on above: Performed By: #### L 200.34224 #### [facility] [address] [place] [address] MONO ABS 0.50 K/CU MM Normal 0.1-1.1 [facility] Comment on above: Performed By: #### L 200.48936 #### [facility] [address] [place] [address] Monocytes/100 WBC (Bld) 4.7 % Normal 2-10 [facility] Comment on above: Performed By: #### L 200.67343 #### [facility] [address] [place] [address] NEUTROPHIL ABS 6.30 K/CU MM Normal 2.0-8.3 [facility] Comment on above: Performed By: #### L 200.30159 #### [facility] [address] [place] [address] Neutrophils/100 WBC (Bld) 61.5 % Normal 45-75 [facility] Comment on above: Performed By: #### L 200.97258 #### [facility] [address] [place] [address] Nucleated RBC/100 WBC (Bld) [Ratio] 0.0 % Normal Less than 1 [facility] Comment on above: Performed By: #### L 200.50362 #### [facility] [address] [place] [address]22 Platelet mean volume (Bld) [Entitic vol] 9.2 fL Low 9.4-12.4 [facility] Comment on above: Performed By: #### L 200.85805 #### [facility] [address] [place], [place] [id number] Platelets (Bld) [#/Vol] 321 K/CU MM Normal 150-450 [facility] Comment on above: Performed By: #### L 200.16616 #### [facility] [address] [place] [address] 67[address] RBC (Bld) [#/Vol] 4.21 M/CU MM Normal 3.90-5.30 [facility] Comment on above: Performed By: #### L 200.51609 #### [facility] [address] [place] [address]671 WBC (Bld) [#/Vol] 10.3 K/CUMM Normal 4.5-11.0 [facility] Comment on above: Performed By: #### L 200.56477 #### [facility] [address] [place] [address] CMPon 10-11-2018 Albumin [Mass/Vol] 3.2 g/dL Normal 3.2-5.0 [facility] Comment on above: Performed By: #### L 500.53776, L500.60027, L500.16827, L500.52465 #### [facility] [place] [address] Albumin/Globulin [Mass ratio] 0.9 {ratio} Normal 0.8-2.0 [facility] Comment on above: Performed By: #### L 500.02291, L500.72037, L500.18171, L500.64254 #### [facility] [address] [place] [address] ALK PHOS 54 U/L Normal 45-117 [facility] Comment on above: Performed By: #### L 500.79310, L500.79985, L500.87488, L500.58819 #### [facility] [address] [place] [address] ALT [Catalytic activity/Vol] 15 U/L Normal 13-61 [facility] Comment on above: Result Comment: RESU LTS MAY BE FALSELY DEPRESSED AFTER THE ADMINISTRATION OF SULFASALAZINE AND/OR SULFAPYRIDINE. Performed By: #### L 500.39164, L500.55270, L500.95069, L500.45663 #### [facility] [address] [place] [address] Anion gap [Moles/Vol] 8 mmol/L Normal 5-16 [facility] Comment on above: Performed By: #### L 500.73605, L500.38046, L500.25652, L500.91481 #### [facility] [address] [place] [address] BILI TOTAL 0.3 MG/DL Normal 0.2-1.0 [facility] Comment on above: Performed By: #### L 500.26842, L500.31586, L500.93516, L500.12429 #### [facility] [place] [address] Calcium [Mass/Vol] 8.3 mg/dL Low 8.5-10.1 [facility] Comment on above: Performed By: #### L 500.28711, L500.28555, L500.81981, L500.48404 #### [facility] [address] [place] [address] Chloride [Moles/Vol] 113 mmol/L High 98-107 [facility] Comment on above: Performed By: #### L 500.81513, L500.42534, L500.64288, L500.06201 #### [facility] [address] [place] [address] CO2 [Moles/Vol] 24 mmol/L Normal 21-32 [facility] Comment on above: Performed By: #### L 500.38462, L500.10415, L500.36165, L500.24174 #### [facility] [address] [place] [address] Creatinine [Mass/Vol] 0.909 mg/dL Normal 0.510- 0.95 0 [facility] Comment on above: Result Comment: Kathy ents receiving either N-Acetylcysteine (NAC) or Metamizole prior to venipuncture, may have falsely depressed results. Performed By: #### L 500.79156, L500.30018, L500.92415, L500.24297 #### [facility] [address] [place] [address] Globulin (S) [Mass/Vol] 3.6 g/dL Normal 2.2-4.2 [facility] Comment on above: Performed By: #### L 500.53973, L500.70247, L500.75978, L500.42959 #### [facility] [place] [address] Glucose [Mass/Vol] 88 mg/dL Normal 70-100 [facility] Comment on above: Result Comment: 70-1 00- Normal Fasting; 100-125 Impaired Fasting; greater than 126 on more than one result- Diabetes. ADA guidelines. Results may be falsely elevated after the administration of Sulfapyridine. Results may be falsely depressed after the administration of Sulfasalazine. Performed By: #### L 500.71020, L500.83413, L500.90273, L500.65772 #### [facility] [address] [place] [address] Potassium [Moles/Vol] 4.6 mmol/L Normal 3.5-5.1 [facility] Comment on above: Performed By: #### L 500.90541, L500.68911, L500.80329, L500.17435 #### [facility] [address] [place], [place] [address] Protein [Mass/Vol] 6.8 g/dL Normal 6.0-8.5 [facility] Comment on above: Performed By: #### L 500.06052, L500.31978, L500.37927, L500.92946 #### [facility] [address] [place] [address]762 SGOT (AST) 8 U/L Normal 8-34 [facility] Comment on above: Result Comment: RESU LTS MAY BE FALSELY DEPRESSED AFTER THE ADMINISTRATION OF SULFASALAZINE AND/OR SULFAPYRIDINE. Performed By: #### L 500.10114, L500.58420, L500.93122, L500.30418 #### [facility] [address] [place] [address] 49472 Sodium [Moles/Vol] 145 mmol/L Normal 136-145 [facility] Comment on above: Performed By: #### L 500.88895, L500.96574, L500.63471, L500.30918 #### [facility] [address] [place], [place] [address] Urea nitrogen [Mass/Vol] 9 mg/dL Normal 7-26 [facility] Comment on above: Performed By: #### L 500.50093, L500.24127, L500.73346, L500.13817 #### [facility] [address] [place] [address] Urea nitrogen/Creatinine [Mass ratio] 10 mg/mg Low 15-24 [facility] Comment on above: Performed By: #### L 500.41000, L500.99251, L500.51500, L500.61390 #### [facility] [address] [place] [address] GFR ESTon 10-11-2018 IF AMER Greater than 60 Normal [facility] Comment on above: Performed By: #### L 500.22686, L500.52864, L500.72516, L500.14853 #### [facility] [address] [place] [address] IF non-AFR AMER Greater than 60 Normal [facility] Comment on above: Performed By: #### L 500.02914, L500.23519, L500.82666, L500.55454 #### [facility] [address] [place], [place] [address] LIPIDon 10-11-2018 Cholesterol [Mass/Vol] 180 mg/dL Normal 0-199 [facility] Comment on above: Performed By: #### L 500.85831, L500.06996, L500.95376, L500.72001 #### [facility] [address] [place], [place] [address] Cholesterol in HDL [Mass/Vol] 51 mg/dL Normal [place] 40 [facility] Comment on above: Result Comment: Kathy ents receiving Metamizole prior to venipuncture, may have falsely depressed results. Performed By: #### L 500.19848, L500.52002, L500.97661, L500.87862 #### [facility] [address] [place] [address] Cholesterol in LDL [Mass/Vol] 90 mg/dL Normal 0-129 [facility] Comment on above: Result Comment: ___C HOLESTEROL/HDL RATIO RISK___ CHD RISK = Total CHOL LDL HDL (CHOL/HDL) Recommended <200 <130 >35 <3.4 Borderline 200-239 130-159 3.4-4.99 High >240 >160 >5.0 Performed By: #### L 500.43530, L500.13497, L500.13014, L500.60023 #### [facility] [address] [place] [address] Triglyceride [Mass/Vol] 195 mg/dL High 30-149 [facility] Comment on above: Result Comment: Kathy ents receiving either N-Acetylcysteine (NAC) or Metamizole prior to venipuncture, may have falsely depressed results. Performed By: #### L 500.80003, L500.42069, L500.37957, L500.74546 #### [facility] [address] [place] [address] TSHon 10-11-2018 TSH Qn 1.660 UIU/ML Normal 0.358-3.74 0 [facility] Comment on above: Result Comment: 3rd generation ultra sensitive TSH Performed By: #### L 500.47146, L500.39266, L500.73956, L500.13293 #### [facility] [address] [place] [address] HCG,Totalon 07-17-2018 HCG Qn 8938.0 m[IU]/mL Normal [facility] Comment on above: Result Comment: Male < or = 1Non- female 1- 3Gestational Age:0.2-1 Week 5 - 501-2 Weeks 50 - 5002-3 Weeks 100 - 37356-8 Weeks 500 - 550462-6 weeks 1000 - 072629-2 weeks 48582 - 100,0006-8 weeks 14647 - 200,0002-3 months 09743 - 100,000 Performed By: #### H ####[address] [address] Patient Summary Documentson 10-29-2017 Patient Summary Documents Normal [facility] ([place]) Vital Signs Date Time Vital Sign Value Performing Clinician Facility 05-13-2025 09:17-0400 Body temperature 98 [degF] Dr. Ortega Medrano MD Work Phone: [facility] 05-13-2025 09:17-0400 Diastolic blood pressure 63 mm[Hg] Dr. Ortega Medrano MD Work Phone: [facility] 05-13-2025 09:17-0400 Heart rate 74 /min Dr. Ortega Medrano MD Work Phone: [facility] 05-13-2025 09:17-0400 Respiratory rate 16 /min Dr. Ortega Medrano MD Work Phone: [facility] 05-13-2025 09:17-0400 SaO2% (BldA) [Mass fraction] 98 % Dr. Ortega Medrano MD Work Phone: 9(467)245-014138 [place] [address] 05-13-2025 09:17-0400 Systolic blood pressure 112 mm[Hg] Dr. Ortega Medrano MD Work Phone: 6(162)627-524638 [place] [address] 05-12-2025 16:47-0400 Body height 160.[address] Ortega Medrano MD Work Phone: 4(204)975-055915 [place] [address] 05-12-2025 16:47-0400 Body mass index (BMI) [Ratio] 40.4 kg/m2 Dr. Ortega Medrano MD Work Phone: 6(280)489-670615 [place] [address] 05-12-2025 16:47-0400 Body weight 103.[address] Ortega Medrano MD Work Phone: 4(596)647-425420 [address] 05-12-2025 16:00-0400 Inhaled oxygen flow rate 3 L/min Dr. Ortega Medrano MD Work Phone: 9(065)091-544938 [place] [address] 04-17-2025 09:28-0400 Body height 160.[address] Ortega Medrano MD Work Phone: 4(827)491-702738 [place] [address] 04-17-2025 09:28-0400 Body mass index (BMI) [Ratio] 40.2 kg/m2 Dr. Ortega Medrano MD Work Phone: 6(877)597-611338 [place] [address] 04-17-2025 09:28-0400 Body temperature 98.5 [degF] Dr. Ortega Medrano MD Work Phone: 0(146)035-161738 [place] [address] 04-17-2025 09:28-0400 Body weight 103.[address] Ortega Medrano MD Work Phone: 2(940)418-996738 [place] [address] 04-17-2025 09:28-0400 Diastolic blood pressure 87 mm[Hg] Dr. Ortega Medrano MD Work Phone: [facility] 04-17-2025 09:28-0400 Heart rate 63 /min Dr. Ortega Medrano MD Work Phone: [facility] 04-17-2025 09:28-0400 Respiratory rate 18 /min Dr. Ortega Medrano MD Work Phone: [facility] 04-17-2025 09:28-0400 SaO2% (BldA) [Mass fraction] 98 % Dr. Ortega Medrano MD Work Phone: [facility] 04-17-2025 09:28-0400 Systolic blood pressure 136 mm[Hg] Dr. Ortega Medrano MD Work Phone: [facility] 03-09-2025 14:23-0400 Body height 160 cm Baltazar Courtney MD Work Phone: [facility] 03-09-2025 14:23-0400 Body mass index (BMI) [Ratio] 40.57 kg/m2 Baltazar Courtney MD Work Phone: [facility] 03-09-2025 14:23-0400 Body temperature 97.11 [degF] Baltazar Courtney MD Work Phone: [facility] 03-09-2025 14:23-0400 Body weight 103.87 kg Baltazar Courtney MD Work Phone: [facility] 03-09-2025 14:23-0400 Diastolic blood pressure 82 mm[Hg] Baltazar Courtney MD Work Phone: [facility] Comment on above: Dr. Courtney notified of blood pressure 03-09-2025 14:23-0400 Heart rate 96 /min Baltazar Courtney MD Work Phone: [facility] 03-09-2025 14:23-0400 Respiratory rate 14 /min Baltazar Courtney MD Work Phone: [facility] 03-09-2025 14:23-0400 SaO2% (BldA) [Mass fraction] 98 % Baltazar Courtney MD Work Phone: [facility] 03-09-2025 14:23-0400 Systolic blood pressure 148 mm[Hg] Baltazar Courtney MD Work Phone: [facility] Comment on above: Dr. Courtney notified of blood pressure 07-30-2024 15:18-0500 Body mass index (BMI) [Ratio] 38.51 kg/m2 Yordy Andersen MD Work Phone: [facility] 07-30-2024 15:18-0500 Body temperature 98.6 [degF] Yordy Andersen MD Work Phone: [facility] 07-30-2024 15:18-0500 Body weight 98.6 kg Yordy Andersen MD Work Phone: [facility] 07-30-2024 15:18-0500 Diastolic blood pressure 80 mm[Hg] Yordy Andersen MD Work Phone: [facility] 07-30-2024 15:18-0500 Heart rate 80 /min Yordy Andersen MD Work Phone: [facility] 07-30-2024 15:18-0500 Respiratory rate 21 /min Yordy Andersen MD Work Phone: [facility] 07-30-2024 15:18-0500 SaO2% (BldA) [Mass fraction] 98 % Yordy Andersen MD Work Phone: [facility] 07-30-2024 15:18-0500 Systolic blood pressure 122 mm[Hg] Yordy Andersen MD Work Phone: [facility] 07-29-2024 15:01-0500 Body height 160 cm Gómez Younger MD Work Phone: [facility] 07-29-2024 15:01-0500 Body mass index (BMI) [Ratio] 37.98 kg/m2 Gómez Younger MD Work Phone: [facility] [employer] 07-29-2024 15:01-0500 Body temperature 98.01 [degF] Gómez Younger MD Work Phone: [facility] 07-29-2024 15:01-0500 Body weight 97.25 kg Gómez Younger MD Work Phone: [facility] 07-29-2024 15:01-0500 Diastolic blood pressure 78 mm[Hg] Gómez Younger MD Work Phone: [facility] 07-29-2024 15:01-0500 Systolic blood pressure 118 mm[Hg] Gómez Younger MD Work Phone: [facility] 07-07-2024 14:13-0500 Body height 160 cm Gómez Younger MD Work Phone: [facility] 07-07-2024 14:13-0500 Body mass index (BMI) [Ratio] 36.56 kg/m2 Gómez Younger MD Work Phone: [facility] 07-07-2024 14:13-0500 Body temperature 98.71 [degF] Gómez Younger MD Work Phone: [facility] 07-07-2024 14:13-0500 Body weight 93.62 kg Gómez Younger MD Work Phone: [facility] 07-07-2024 14:13-0500 Diastolic blood pressure 82 mm[Hg] Gómez Younger MD Work Phone: [facility] 07-07-2024 14:13-0500 Systolic blood pressure 118 mm[Hg] Gómez Younger MD Work Phone: [facility] 07-25-2023 09:03-0500 Body height 160.[address] Sommer Flynn Work Phone: [facility] 07-25-2023 08:55-0500 Body mass index (BMI) [Ratio] 39.2 kg/m2 Dr. Sommer Flynn Work Phone: [facility] 07-25-2023 08:55-0500 Body weight 100.[address] Sommer Flynn Work Phone: [facility] 07-25-2023 08:55-0500 Diastolic blood pressure 82 mm[Hg] Dr. Sommer Flynn Work Phone: [facility] 07-25-2023 08:55-0500 Systolic blood pressure 128 mm[Hg] Dr. Sommer Flynn Work Phone: [facility] Encounters Encounter Date Encounter Type Care Provider Facility Start: 06-25-2025 End: 06-25-2025 ambulatory Gómez Casiano Facility:[facility] Start: 06-24-2025 End: 06-24-2025 ambulatory Gómez Casiano Facility:[facility] Start: 06-15-2025 End: 06-15-2025 ambulatory Ortega Medrano Facility:[facility] Start: 05-22-2025 End: 05-22-[address] Gómez Casiano MD -[facility] Work Phone: Start: 05-22-2025 End: 05-22-[address] Ortega Medrano MD Work Phone: -[facility] Start: 05-13-2025 Non-patient / Non-visit Dr. Gómez Casiano MD -[facility] Start: 05-12-2025 End: 05-13-2025 ambulatory Ortega Medrano Facility:[facility] Start: 05-12-2025 End: 05-13-2025 Evaluation and management of inpatient Dr. Gómez Casiano MD [facility] Work Phone: Start: 05-12-2025 End: 05-13-[address] Ortega Medrano MD Work Phone: -[facility] Start: 05-12-2025 ambulatory Ortega Medrano Facilit y:[facility] Start: 05-12-2025 Non-patient / Non-visit Dr. Gómez Casiano MD -[facility] Start: 04-23-2025 End: 04-23-[address] Ortega Medrano MD Work Phone: -Ultrasound [facility] Start: 04-23-2025 End: 04-23-[address] Gómez Casiano MD -Ultrasound [facility] Work Phone: Start: 04-23-2025 End: 04-23-2025 ambulatory Ortega Medrano Facility:[facility] Start: 04-17-2025 End: 04-17-[address] Gómez Casiano MD -[facility] Work Phone: Start: 04-17-2025 End: 04-17-[address] Ortega Medrano MD Work Phone: -[facility] Start: 03-16-2025 End: 03-16-2025 Patient encounter procedure Baltazar Courtney MD Work Phone: General Surgery Comment on above: Multinodular goiter (Primary Dx) Start: 03-16-2025 End: 03-16-2025 ambulatory ORTEGA MEDRANO Facility:[facility] Start: 03-09-2025 End: 03-09-2025 Patient encounter procedure Baltazar Courtney MD Work Phone: General Surgery Comment on above: Multinodular goiter (Primary Dx) Start: 03-09-2025 End: 03-09-2025 ambulatory BALTAZAR COURTNEY Facility:[facility] Start: 03-04-2025 End: 03-04-2025 Chart abstracting Baltazar Courtney MD Work Phone: General Surgery Start: 02-12-2025 End: 02-12-[address] Sommer Flynn MD Work Phone: [facility] Work Phone: Start: 02-12-2025 End: 02-12-[address] Ortega Medrano MD -Ultrasound [facility] Work Phone: Start: 02-12-2025 End: 02-12-2025 ambulatory Ortega Medrano Facility:[facility] Start: 02-05-2025 End: 02-05-[address] Sommer Flynn MD Work Phone: [facility] Work Phone: Start: 02-05-2025 End: 02-05-[address] Ortega Medrano MD -Laboratory [facility] Start: 02-05-2025 End: 02-05-2025 ambulatory Ortega Medrano Facility:[facility] Start: 01-15-2025 Encounter for genera l adult medical examination without abnormal findings Sommerdwaine Flynn [facility] Start: 01-15-2025 ambulatory Sommer Flynn Facilit y:[facility] Start: 11-15-2024 Registered [facility] -Laboratory Work Phone: Start: 11-15-2024 ambulatory Health Risk Assessment Facility:[facility] Start: 10-25-2024 ambulatory Health Risk Assessment Facility:[facility] Start: 10-25-2024 Registered [facility] -Employee Health Start: 10-23-2024 Registered Referred HEALTH RIS K ASSESSMENT -Employee Health Start: 10-23-2024 ambulatory Health Risk Assessment Facility:[facility] Start: 07-30-2024 End: 07-30-2024 ambulatory SOMMER FLYNN Facility:[facility] Start: 07-30-2024 End: 07-30-2024 Office outpatient new 30 minutes Yordy Andersen MD Work Phone: [facility] Comment on above: Acute non-recurrent sinusitis, unspecified location (Primary Dx) Start: 07-29-2024 End: 07-29-2024 ambulatory GÓMEZ YOUNGER [facility] Start: 07-29-2024 End: 07-29-2024 Postop follow up visit related to original px Gómez Younger MD Work Phone: [facility] [place] Comment on above: Perianal abscess (Pr imary Dx) Start: 07-28-2024 Encounter for gynecological examination (general) (routine) without abnormal findings Lali Gallagher [facility] Start: 07-28-2024 End: 07-28-2024 ambulatory Sommer Flynn Facility:[facility] Start: 07-28-2024 End: 07-28-2024 ambulatory Sommer Flynn Facility:[facility] Start: 07-07-2024 End: 07-07-2024 Patient encounter procedure Gómez Younger MD Work Phone: [facility] [place] Comment on above: Perianal abscess (Pr imary Dx) Start: 07-07-2024 End: 07-07-2024 ambulatory GÓMEZ YOUNGER [facility] Start: 09-19-2023 End: 09-19-[address] Sommer Flynn Work Phone: [facility] Work Phone: Start: 09-19-2023 End: 09-19-[address] Sommer Flynn Work Phone: [facility]-Ultrasound, [facility] Work Phone: Start: 07-25-2023 End: 07-25-[address] Sommer Flynn Work Phone: [facility] Work Phone: Start: 07-17-2018 End: 07-18-2018 Patient encounter procedure KAREN [facility] Start: 10-29-2017 End: 10-29-2017 Emergency department [...] Comment on above: Thyroglobulin Antibody measured by [facility] CoulterMethodologyIt should be noted that the presence of thyroglobulinantibodies may not be pathogenic nor diagnostic, especiallyat very low levels. The assay commissioned security officer has found thatfour percent of individuals without [...] the productionof interferon gamma. Chemiluminescence immunoassaymethodologyPerformed at: [facility] [address] [id number] Director: Rodrigo Edmondson PhD, Phone: [phone] Start: 09-19-[address] Sommer Flynn [...] had a prior FNA biopsy given a [place] 5 diagnosis and our final pathology appears [...] for Adults (1 - 1-dose 75+ series) [email or web address] Start: 2036 Zoster Vaccines (1 of 2) Zoste r Vaccines (1 of 2) [facility] Start: 03-24-2030 DTaP/Tdap/Td Vaccine s (5 - Td or Tdap) DTaP/Tdap/Td Vaccines (5 - Td or Tdap) [facility] Start: 03-24-2030 Urine microalbumin profile [facility] Start: 05-13-2025 Patient discharge [facility] Start: 05-12-2025 Application of intermittent pneumatic compression device [facility] Start: 05-12-2025 Following clinical pathway protocol [facility] Start: 05-12-2025 Application of ice collar, cap or bag [facility] Start: 05-12-2025 Elevation of head of bed [facility] Start: 05-12-2025 Admission procedure [facility] Start: 05-12-2025 Anes esoph thyrd lar ynx trach & lymph neck 1yr ANESTH NECK ORGAN 1YR/> [facility] Start: 05-12-2025 Thyroidectomy total/complete REMOVAL OF THYROID [facility] Start: 04-27-2025 Influenza vaccination Influenza Vacc ine (#1) [facility] Start: 03-30-2025 End: 03-30-2025 Patient encounter procedure 03/30/2025 2:45 PM EDT Office Visit General Surgery [address] [place] [address] Baltazar Courtney MD [address] [place] [address] 2 wk f/u-FNA results General Surgery Comment on above: 2 wk f/u-FNA results Start: 03-16-2025 End: 03-16-2025 Patient encounter procedure 03/16/2025 1:30 PM EDT Office Visit General Surgery [address] [place] [address] Baltazar Courtney MD [address] [place] [address] PROCEDURE: FNA Right thyroid x 2. Consent signed. [facility] General Surgery Comment on above: PROCEDURE: FNA Right thyroid x 2. Consent signed. [facility] Start: 03-09-2025 End: 03-09-2025 Patient encounter procedure 03/09/2025 2:45 PM EDT Office Visit General Surgery [address] [place] [address] Baltazar Courtney MD [address] [place] [address] CONSULT: THYROID NODULE / REFERRAL SCANNED. Images available. [facility] General Surgery Comment on above: CONSULT: THYROID NOD ULE / REFERRAL SCANNED. Images available. [facility] Start: 07-29-2024 End: 07-29-2024 Patient encounter procedure 07/29/2024 3:00 PM EST Office Visit [facility] [place] [address] [place] [id number] Gómez Younger MD [address] [place] [address] [facility] [place] Start: 04-27-2024 COVID-19 Vaccine ( season) COVID-19 Vaccine ( season) [facility] Start: 04-23-2017 Screening for malign ant neoplasm of cervix Cervical Cancer Screening [facility] Start: 2016 Screening for malign ant neoplasm of cervix [facility] Start: 2007 Screening for malign ant neoplasm of cervix Pap Smear [facility] Start: 2004 Anxiety Screening Anxiety Screening [facility] Start: 2004 Depression Screening Depression Scre ening [facility] Start: 2004 Hepatitis C screening Hepatitis C Sc reening [facility] Start: 1999 Varicella vaccination Varicell a Vaccines (1 of 2 - 13+ 2-dose series) [facility] Start: 1998 Depression Monitoring Depression Mon itoring [facility] Start: 1987 MMR Vaccines (1 of 1 - Standard series) MMR Vaccines (1 of 1 - Standard series) [facility] Start: 1986 HIV screening HIV Screening [facility] Start: 1986 Lipid panel Lipid Panel [facility] CYTOLOGY NON-VET TECH [facility] Work Phone: Comment on above: Ordered: 03/16/2025 T4 free measurement [facility] Thyroid stimulating hormone measurement [facility] Triiodothyronine, fr ee measurement [facility] Immunizations Immunization Date Immunization Notes Care Provider Enriqueta hi 06-17-2024 Influenza, injectabl e, Madin Emi Canine Kidney, preservative free, quadrivalent Dr. Sommer Flynn MD Work Phone: [facility] 06-17-2024 influenza virus vaccine, unspecified formulation Baltazar Courtney MD Work Phone: [facility] 07-12-2021 influenza, injectabl e, quadrivalent, preservative free Dr. Sommer Flynn Work Phone: [facility] 10-12-2020 Covid (Moderna) Dr. Sommer Flynn Work Phone: [facility] 09-14-2020 Covid (Moderna) Dr. Sommer Flynn Work Phone: [facility] 05-25-2020 influenza, injectabl e, quadrivalent, preservative free Dr. Sommer Flynn Work Phone: [facility] 03-24-2020 tetanus toxoid, redu janeen diphtheria toxoid, and acellular pertussis vaccine, adsorbed Dr. Sommer Flynn Work Phone: [facility] 07-09-2019 influenza, injectabl e, quadrivalent, preservative free Dr. Sommer Flynn Work Phone: [facility] 10-22-2014 tetanus toxoid, redu janeen diphtheria toxoid, and acellular pertussis vaccine, adsorbed Yordy Andersen MD Work Phone: [facility] 05-28-2014 hepatitis B vaccine, adult dosage Yordy Andersen MD Work Phone: [facility] 05-28-2014 influenza, injectabl e, quadrivalent, preservative free Yordy Andersen MD Work Phone: [facility] 11-27-2013 hepatitis B vaccine, adult dosage Yordy Andersen MD Work Phone: [facility] 10-27-2013 hepatitis B vaccine, adult dosage Yordy Andersen MD Work Phone: [facility] Work Phone: 10-27-2013 tetanus toxoid, redu janeen diphtheria toxoid, and acellular pertussis vaccine, adsorbed Yordy Andersen MD Work Phone: [facility] Payers Date Payer Category Payer Private Health Insurance [facility] [id number] 2024 Unknown [id number] 2024 Self-pay [id number] 2024 Commercial Managed C are - HMO [id number] 2024 Unknown [id number] 2024 Unknown [id number] 2015 Private Health Insurance [id number] Private Health Insurance [id number] Unknown [facility] DO NOT USE 22 [id number] Unknown [id number] 62 Unknown [id number] 2.16.840.1.244336.3.579.2.4 62 Unknown [id number] 2.16.840.1.577794.3.579.2.4 62 Unknown [id number] 2.16.840.1.872843.3.579.2.4 62 Unknown [id number] 2.16.840.1.902989.3.579.2.4 62 Unknown [id number] 2.16.840.1.367782.3.579.2.4 62 Unknown [id number] 2.16.840.1.926555.3.579.2.4 62 Unknown [id number] 2.16.840.1.435775.3.579.2.4 62 Unknown [id number] 2.16.840.1.632803.3.579.2.4 62 Unknown [id number] 2.16.840.1.611226.3.579.2.4 62 Unknown [id number] 2.16.840.1.053269.3.579.2.4 62 Unknown [id number] 2.16.840.1.678749.3.579.2.4 62 Unknown [id number] 2.16.840.1.245645.3.579.2.4 62 Unknown [id number] 2.16.840.1.196120.3.579.2.4 62 Unknown [id number] 2.16.840.1.299912.3.579.2.4 62 Unknown [id number] 2.16.840.1.406841.3.579.2.4 62 Unknown [id number] 2.16.840.1.522670.3.579.2.4 62 Social History Date Type Detail Facility Start: 07-25-2023 Tobacco smoking stat [facility] Unknown if ever smoked [facility] Start: 03-18-2019 None [facility] Start: 03-18-2019 Spouse/ Signif icant Other [facility] Start: 1985 Sex Assigned At Female W [facility] Start: 07-07-2024 End: 05-06-2025 Tobacco smoking status NHIS Never smoked tobacco [facility] Start: 04-23-2014 End: 07-07-2024 Tobacco use and exposure Smokeless tobacco non-user [facility] Start: 07-07-2024 End: 03-09-2025 Alcoholic beverage intake Current drinker of alcohol (finding) [facility] Start: 07-07-2024 End: 03-09-2025 History of Social function [facility] Start: 07-07-2024 End: 03-09-2025 Tobacco use panel [facility] Start: 1985 Sex assigned at Not on file [facility] Start: 04-28-2022 Sex Female (finding) [facility] Start: 07-30-2024 End: 03-04-2025 Alcoholic beverage intake Current non-drinker of alcohol (finding) [facility] National Score (1-100), lower number is lower risk 71 [facility] Start: 03-09-2025 Alcohol Comment Socially- meg mated once monthly [facility] Medical Equipment Procedure Code Equipment Code Equipment Original Text Equipment Identifier Dates Thyroidectomy Plant polysaccha ride haemostatic agent, bioabsorbable [id number] FDA Start: 05-12-2025 Thyroidectomy Ligation clip, metallic ( )[id number] FDA Start: 05-12-2025 Goals Date Patient Goal Desired Activity /State Functional Status Date Assessment Result Facility 05-13-2025 Functional status Ambulates [facility] Work Phone: 12-17-2014 Are you deaf, or do you have serious difficulty hearing No 12/17/2014 9:56 AM Leighann Dunn Ma No [facility] 12-17-2014 Are you blind, or do you have serious difficulty seeing, even when wearing glasses No 12/17/2014 9:56 AM Leighann Dunn Ma No [facility] 12-17-2014 Do you have serious difficulty walking or climbing stairs No 12/17/2014 9:56 AM EDT Leighann Delatorre Ma [facility] 12-17-2014 Do you have difficul ty dressing or bathing No 12/17/2014 9:56 AM Leighann Dunn Ma [facility] 12-17-2014 Because of a physica l, mental, or emotional condition, do you have difficulty doing errands alone such as visiting a physician's office or shopping No 12/17/2014 9:56 AM EDT Leighann Delatorre Ma Jennifer [facility] Mental Status Date Assessment Result Facility 05-13-2025 Cognitive function Level Of Cons ciousness Awake [facility] Work Phone: 05-13-2025 Cognitive function Voice/Name [facility] Work Phone: 12-17-2014 Because of a physica l, mental, or emotional condition, do you have serious difficulty concentrating, remembering, or making decisions No 12/17/2014 9:56 AM EDT Leighann Delatorre Ma [facility] Clinical Notes 07-07-2024 to 05-22-2025 Note Date & Type Note Facility 05-22-2025 Progress note [facility] 05-13-2025 Discharge summary [facility] 05-13-2025 Discharge summary [facility] 05-13-2025 Procedure note [facility] 05-13-2025 Discharge summary Note Date/Time May 13, 2025 11:33am [facility] Medical Records Department [address] [place] [address] Discharge Summary 05/13/25 0759 MR#: [id number] Acct: [id number] Name: HAMLET TEIXEIRA Rep # :[id number] : 1985 39 From: Gómez Quick PCP: Dr. Ortega Medrano MD Status:JESUS PLATA Location: [place] [id number] Providers Date of Admission: 05/12/25 Primary Care [...] Casiano MD General Surgery Endocrine Surgery Pager: [facility] [address] [place] [address] [address] [place] [id number] Office: [phone] Medications at Discharge Home Medications duloxetine 60 [...] Self Care Charges/Coding Visit Charges Inpatient E&M: 28560 Disch Hosp 05/13/25 1133 <Electronically signed by Gómez Casiano MD> Cosigner Signature (if applicable): CC: Dr. Ortega Medrano MD; Dr. Gómez Casiano MD~ Signed [facility] Work Phone: 1(559) 366-737209-17-2025 Discharge summary Author Gómez Casiano [facility] Note Date/Time May 13, 2025 11:32am [facility] Medical Records Department [address] [place] [address] Instructions for Home/Discharge Instructions 05/13/25 0755 MR#: [id number] Acct: [id number] Name: HAMLET TEIXEIRA Rep # :[id number] : 1985 39 From: Gómez Quick PCP: [...] CC: Dr. Ortega Medrano MD ~ Signed [facility] Work Phone: 1(593) 956-798409-17-2025 Progress note Author Gómez Casiano [facility] Note Date/Time May 13, 2025 7:45am [facility] Medical Records Department [address] [place] [address] Progress Note - Surgery 05/13/25 0742 MR#: [id number] Acct: [id number] Name: HAMLET TEIXEIRA Rep # :[id number] : 1985 39 From: Gómez Quick PCP: Dr. Ortega Medrano MD Status:AD [facility] Location: [place] [address] Subjective Subjective Patient doing well this morning. [...] she returns home. Will also advance to [facility]. Discussed outpatient wound care and follow-up instructions. Patient denies any further questions. Provided the above implemented care plan items proceed without complication will plan for discharge later today. Gómez Casiano MD General Surgery Endocrine Surgery Pager: [facility] [address] [place] [address] [place], [place] [id number] Office: [phone] Charges/Coding Visit Charges Inpatient E&M: 95472 Subs Hosp L1 05/13/25 0745 <Electronically signed by Gómez Casiano MD> Cosigner Signature (if applicable): CC: ~ Signed [facility] Work Phone: 1(847) 852-459009-17-2025 [facility] Medical Records Department [address] [place] [address] Discharge Summary 05/13/25 0759 MR#: [id number] Acct: [id number] Name: HAMLET TEIXEIRA Rep #: [id number] : 1985 39 From: Gómez Casiano MD PCP: Dr. Ortega Medrano MD Status:ADM BONI Location: [place] PE709-8 Providers Date of Admission: 05/12/25 Primary Care [...] Casiano MD General Surgery Endocrine Surgery Pager: [facility] [address] [place] [address], [address] [place] [address] Office: [phone] Medications at Discharge Home Medications duloxetine 60 [...] [Vitamin D3] 5 (more content not included)... [facility]09-17-2025 Progress note [facility] Medical Records Department [address] [place] [address] Progress Note - Surgery 05/13/25 0742 MR#: [id number] Acct: [id number] Name: HAMLET TEIXEIRA Rep # :[id number] : 1985 39 From: Gómez Quick PCP: Dr. Ortega Medrano MD Status:AD M [facility] Location: [place] [id number] Subjective Subjective Patient doing well this morning. [...] / 1515 400 / 400 Output Total / 5 Balance 1110 / 1510 400 [...] Casiano MD General Surgery Endocrine Surgery Pager: [facility] [address] [place] [address], [address] [place] [address] Office: [phone] Charges/Coding Visit Charges Inpatient E&M: 84320 Subs Hosp L1 05/13/25 8901 Cosigner Signature (if applicable): CC: ~ Signed [facility]09-16-2025 Consult note Author Leighton Copeland [facility] Note Date/Time May 12, 2025 5:21pm [facility] Medical Records Department [address] [place] [address] Anesthesia Postop Eval II 05/12/25 1695 MR#: [id number] Acct: [id number] Name: HAMLET TEIXEIRA Rep # :[id number] : 1985 39 From: Leighton Copeland MD PCP: Dr. Ortega Medrano MD Status:AD M BONI Y Race: C Location: [place] [address] Anesthesia Postop Eval I Sum Postop Eval Completion status Anesthesia document: Postop Eval 1 completed: Yes Anesthesia Postop Eval I Summary Anesthesia Postop Eval I Summary: Anesthesia Postop Eval I: Assessment Summary Airway patent Yes 05/12/25 15:10 [email or web address] Spontaneous unlabored Yes 05/12/25 15:10 SHRIMP [email or web address].[email or web address] respirations Mental status Awake,Calm 05/12/25 15:10 SHRIMP [email or web address].GDOTT nausea No 05/12/25 15:10 SHRIMP [email or web address].GDOTT Vomiting No 05/12/25 15:10 SHRIMP [email or web address].GDOTT Anesthesia Postop Eval I: Fluid Summary Crystalloid volume administer 1,400 05/12/25 15:10 SHRIMP [email or web address].GDOTT (ml) Colloids volume administered ( ml) Blood Product volume administered (ml) Total IV fluid infused 1,400 05/12/25 15:10 SHRIMP [email or web address].GDOTT Anesthesia Postop Eval I: Summary Notes Anesthesia Complication No 05/12/25 15:10 SHRIMP [email or web address].GDOTT Anesthesia Complication Comment: Post-operative progress note Anesthesia: [...] MD Cosigner Signature: Date CC: ~ Signed [facility] Work Phone: 1(120) 989-714809-16-2025 Consult note [facility] Medical Records Department [address] [place] [address] Anesthesia Postop Eval II 05/12/25 1709 MR#: [id number] Acct: [id number] Name: HAMLET TEIXEIRA Rep # :[id number] : 1985 39 From: Leighton Copeland MD PCP: Dr. Ortega Medrano MD Status:AD M BONI Y Race: C Location: [place] [address] -1 Anesthesia Postop Eval I Sum Postop Eval Completion status Anesthesia document: Postop Eval 1 completed: Yes Anesthesia Postop Eval I Summary Anesthesia Postop Eval I Summary: Anesthesia Postop Eval I: Assessment Summary Airway patent Yes 05/12/25 15:10 SHRIMP [email or web address].[email or web address] Spontaneous unlabored Yes 05/12/25 15:10 SHRIMP [email or web address].GDOTT respirations Mental status Awake,Calm 05/12/25 15:10 SHRIMP TRAWLER.GDOTT nausea No 05/12/25 15:10 SHRIMP TRAWLER.GDOTT Vomiting No 05/12/25 15:10 SHRIMP TRAWLER.GDOTT Anesthesia Postop Eval I: Fluid Summary Crystalloid volume administer 1,400 05/12/25 15:10 SHRIMP TRAWLER.GDOTT (ml) Colloids volume administered ( ml) Blood Product volume administered (ml) Total IV fluid infused 1,400 05/12/25 15:10 SHRIMP TRAWLER.GDOTT Anesthesia Postop Eval I: Summary Notes Anesthesia Complication No 05/12/25 15:10 SHRIMP [email or web address].GDOTT Anesthesia Complication Comment: Post-operative progress note Anesthesia: [...] Leighton Maldonado Signature: Date CC: ~ Signed [facility]09-16-2025 Consult note Author Estella Henry [facility] Note Date/Time May 12, 2025 3:10pm [facility] Medical Records Department [address] [place] [address] Anesthesia Postop Eval I 05/12/25 1508 MR#: [id number] Acct: [id number] Name: HAMLET TEIXEIRA Rep # :[id number] : 1985 39 From: Estella MONTANO PCP: Dr. Ortega Medrano MD Status:[facility] Y Race: C Location: [place] [address] Anesthesia: Postop Eval I Current Vital Signs [...] Estella Maldonado Signature: Date CC: ~ Signed [facility] Work Phone: 1(749) 579-978309-16-2025 Consult note [facility] Medical Records Department [address] [place] [address] Anesthesia Postop Eval I 05/12/25 1508 MR#: [id number] Acct: [id number] Name: HAMLET TEIXEIRA Rep # :[id number] : 1985 39 From: Estella MONTANO PCP: Dr. Ortega Medrano MD Status:[facility] Y Race: C Location: [place] [address] Anesthesia: Postop Eval I Current Vital Signs [...] Postop Eval 1 completed: Yes 05/12/25 1510 SHRIMP TRAWLER> Date _ Estella Henry SHRIMP TRAWLER Cosigner Signature: Date CC: ~ Signed [facility]09-16-2025 History and physical note Author Gómez Casiano [facility] Note Date/Time May 12, 2025 11:00am [facility] Medical Records Department [address] [place] [address] History & Physical Exam 05/12/25 1058 MR#: [id number] Acct: [id number] Name: HAMLET TEIXEIRA Rep # :[id number] : 1985 39 From: Gómez Quick PCP: Dr. Ortega Medrano MD Status:KELLY Reyes [facility] Location: [place] [address] History and Physical Date of Admission: 05/12/25 Date of Service: 04/17/25 MR#: [id number] Acct: [id number] Name: HAMLET TEIXEIRA Rep #: [id number] : 1985 Provider: Dr. 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 The latter [...] would appear patient has a 2.2 cm [place] 5 nodule suspicious forunifocal PTC. I held a lengthy conversation today with Mrs. Teixeira regarding her surgical options. I suggested that [place] [employer] would generally recommend thyroid lobectomy [...] should be able aline managed here in [place]. Lastly, I described the implications for risk [...] Medrano MD; Dr. Gómez Casiano MD~ Signed [facility] Work Phone: 1(186) 559-998009-16-2025 Consult note Author Leighton Copeland [facility] Note Date/Time May 12, 2025 10:32am [facility] Medical Records Department [address] [place] [address] Pre-Anesthesia Evaluation 05/12/25 1018 MR#: [id number] Acct: [id number] Name: HAMLET TEIXEIRA Rep # :[id number] : 1985 39 From: Leighton Copeland MD PCP: Dr. Ortega Medrano MD Status:RE G [facility] Y Race: C Location: [place] [address] ASA Classification* ASA Classification ASA Classification: 2 [...] 12:02/05/25 Plt Count 382 K/mm3 (150-450) 02/05/25 12:02/05/25 CHEMISTRY Potassium 4.1 mmol/L (3.3-5.1) 02/05/25 12:11 02/05/25 Sodium 138 mmol/L (133-145) 02/05/25 12:11 02/05/25 Phosphorus 2.6 mg/dL (2.7-4.5) L 11/15/24 08:56 11/15/24 BUN 7 mg/dL (4-19) 02/05/25 12:11 02/05/25 Creatinine 0.82 mg/dL (0.70-1.20) 02/05/25 12:11 02/05/25 Glucose 93 mg/dL (70-99) 02/05/25 12:11 02/05/25 TSH 1.840 uIU/mL (0.300-4.200) 02/05/25 12:11 01/25 10/21 COAG PT 12.9 SECONDS (11.7-14.9) 04/02/20 11:05 HCG, Quant 56730 mIU/mL (1-3) H 10/27/19 15:35 10/27/19 Pre-Assessment Diagnosis/Proposed Procedure Planned Operative Procedure(s): TOTAL THYROIDECTOMY Anesthesia History Anesthesia History - manager games: Anesthesia History - manager games Hx Hospitalization No 05/06/25 10:07 Any Problems [...] take am of surgery PONV PONV - manager games: PONV - manager games Female Yes 05/06/25 10:07 HX of Motion [...] 05/12/25 09:53 Respiratory Assessment Respiratory Assessment - manager games: Respiratory Tract Infection Hx - manager games Hx Respiratory Tract Infection No 05/06/25 10:07 STOP Sleep Apnea STOP Sleep Apnea - manager games: STOP Sleep Apnea - manager games Hx Hypertension No 05/06/25 10:07 Hx Sleep [...] Tobacco Use History Tobacco Use History - manager games: Tobacco Use History - manager games Tobacco Use Smoking Status Never smoker 05/06/25 10:07 Hx Tobacco Use No 05/06/25 10:07 Years Smoking Packs Smoked per Day Smoking Cessation Date was within the last 15 years Hx Smoking Cessation Date Hx Smoking Cessation Counseling Hematologic Medial History Hematologic Hx - manager games: Hematologic Medical Hx - commissions specialist Hx of Blood Transfusion No 05/06/25 10:07 [...] confused, unrespo /Reproduction History /Reproductive History - manager games: /Reproductive Hx- manager games Hx Now No 05/06/25 10:07 Gestational Age [...] current occupational status: employed 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 Ortega Medrano MD Status:[facility] Location: [place] [address] History and Physical Date of Admission: 05/12/25 Date of Service: 04/17/25 MR#: [id number] Acct: [id number] Name: YENIHAMLET TAPIARICIA Rep #: [id number] : 1985 Provider: Dr. 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 The latter [...] would appear patient has a 2.2 cm [place] 5 nodule suspicious forunifocal PTC. I held a lengthy conversation today with regarding her surgical options. I suggested that [place] [employer] would generally recommend thyroid lobectomy [...] should be able aline managed here in [place]. Lastly, I described the implications for risk [...] Medrano MD; Dr. Gómez Casiano MD~ Signed [facility]09-16-2025 [facility] Medical Records Department [address] [place] [address] History Physical Exam 05/12/25 1058 MR#: [id number] Acct: [id number] Name: HAMLET TEIXEIRA Rep #: [id number] : 1985 39 From: Gómez Casiano MD PCP: Dr. Ortega Medrano MD Status:[facility] Location: [place] [address] History and Physical Date of Admission: 05/12/25 Date of Service: 04/17/25 MR#: [id number] Acct: [id number] Name: HAMLET TEIXEIRA Rep #: [id number] : 1985 Provider: Dr. 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 The latter [...] ROS General General: Y (more content not included)...[facility]09-16-2025 Consult note [facility] Medical Records Department [address] [place] [address] Pre-Anesthesia Evaluation 05/12/25 1018 MR#: [id number] Acct: [id number] Name: HAMLET TEIXEIRA Rep # :[id number] : 1985 39 From: Leighton Copeland MD PCP: Dr. Ortega Medrano MD Status:RE G SDC Y Race: C Location: [place] [address] ASA Classification* ASA Classification ASA Classification: 2 [...] 12:02/05/25 Plt Count 382 K/mm3 (150-450) 02/05/25 12:02/05/25 CHEMISTRY Potassium 4.1 mmol/L (3.3-5.1) 02/05/25 12:02/05/25 Sodium 138 mmol/L (133-145) 02/05/25 12:02/05/25 Phosphorus 2.6 mg/dL (2.7-4.5) L 11/15/24 08:56 11/15/24 BUN 7 mg/dL (4-19) 02/05/25 12:02/05/25 Creatinine 0.82 mg/dL (0.70-1.20) 02/05/25 12:02/05/25 Glucose 93 mg/dL (70-99) 02/05/25 12:02/05/25 TSH 1.840 uIU/mL (0.300-4.200) 02/05/25 12:11 01/25 10/21 COAG PT 12.9 SECONDS (11.7-14.9) 04/02/20 11:05 HCG, Quant 82926 mIU/mL (1-3) H 10/27/19 15:35 10/27/19 Pre-Assessment Diagnosis/Proposed Procedure Planned Operative Procedure(s): TOTAL THYROIDECTOMY Anesthesia History Anesthesia History - manager games: Anesthesia History - manager games Hx Hospitalization No 05/06/25 10:07 Any Problems [...] take am of surgery PONV PONV - manager games: PONV - manager games Female Yes 05/06/25 10:07 HX of Motion [...] 05/12/25 09:53 Respiratory Assessment Respiratory Assessment - manager games: Respiratory Tract Infection Hx - manager games Hx Respiratory Tract Infection No 05/06/25 10:07 STOP Sleep Apnea STOP Sleep Apnea - manager games: STOP Sleep Apnea - manager games Hx Hypertension No 05/06/25 10:07 Hx Sleep [...] Tobacco Use History Tobacco Use History - manager games: Tobacco Use History - manager games Tobacco Use Smoking Status Never smoker 05/06/25 10:07 Hx Tobacco Use No 05/06/25 10:07 Years Smoking Packs Smoked per Day Smoking Cessation Date was within the last 15 years Hx Smoking Cessation Date Hx Smoking Cessation Counseling Hematologic Medial History Hematologic Hx - manager games: Hematologic Medical Hx - commissions specialist Hx of Blood Transfusion No 05/06/25 10:07 [...] confused, unrespo /Reproduction History /Reproductive History - manager games: /Reproductive Hx- manager games Hx Now No 05/06/25 10:07 Gestational Age (in weeks): EDC: Hx Hx Para Hx Section SAB No 05/06/25 10:07 Active Medications Active Medications: Current Medications Generic Name Dose Route Start Last Admin Trade Name Freq PRN Reason Stop Dose Admin Lactated Ringer's 1,000 mls @ 15 mls/hr 05/12/25 10:00 05/12/25 09:59 IV 15 mls/hr .Q48H HERO Administration PFS Medical History Cancer Anxiety Alcohol use High [...] current occupational status: employed 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 Ortega Medrano MD Status: RE G CLI Study:Head/Neck Soft Tissue Date of Exam: 04/23/25 Exam# [id number] Ordering Dr: Gillian Casiano MD ADDENDUM by Dr. Ian Cox MD on 04/28/25 at 1320 The lymph node as a normal appearing fatty hilum and good cortical thickness. This suggests benignity. Reading Location: [facility] 04/28/25 1321 Date cc: Dr. Ortega Medrano [...] right side of the neck. Reading Location: [id number] CC: Dr. Ortega Medrano MD; Dr. Gómez Casiano MD ~ Footwear Machinery Instructor: Signed [facility]08-22-2025 Evaluation note* Diagnosis Onset Date Resolution Status Admit Date Multiple thyroid nodules acute April 17, 2025 9:12am [facility] Work Phone: 1(553) 603-888608-22-2025 Evaluation note* Diagnosis Onset Date Resolution Status Admit Date Multiple thyroid nodules acute April 17, 2025 9:12am Status post total thyroidectomy acute May 12, 2025 2:52pm [facility] Work Phone: 1(751) 849-365908-22-2025 Evaluation note* Diagnosis Onset Date Resolution Status Admit Date Multiple thyroid nodules acute April 17, 2025 9:12am Status post total thyroidectomy acute May 12, 2025 2:52pm Status post total thyroidectomy acute May 22, 2025 8:01am [facility] Work Phone: 1(866) 512-425607-21-2025 Note* Addendum Note - Amirah Nice RN - 03/16/2025 2:03 PM EDTAddended by: AMIRAH NICE on: 03/16/2025 02:03 PM Modules accepted: Orders [facility]07-21-2025 Miscellaneous Notes* Addendum Note - Amirah Nice RN - 03/16/2025 2:03 PM EDTAddended by: AMIRAH NICE on: 03/16/2025 02:03 PM Modules accepted: Orders * Addendum Note - Amirah Nice RN - 03/16/2025 2:01 PM EDTAddended by: AMIRAH NICE on: 03/16/2025 02:01 PM Modules accepted: Orders documented in this encounterMad[facility] Health07-21-2025 Note* Addendum Note - Amirah Nice RN - 03/16/2025 2:01 PM EDTAddended by: AMIRAH NICE on: 03/16/2025 02:01 PM Modules accepted: Orders [facility]07-21-2025 NoteHNO ID: [id number] Author: BALTAZAR COURTNEY MD Service: ? Author [...] applied and the patient tolerated the procedure well.[facility]07-21-2025 History of Present illness Narrative* Baltazar [...] tolerated the procedure well. documented in this encounterMadison Health07-21-2025 Instructions* Patient Instructions* Amirah Nice RN - [...] you have any questions or concerns @ [phone]. Please make an appointment to follow up in one week with your physician and thank you for choosing the [facility]. If you note any additional difficulties, questions, or concerns, you should contact our office immediately @ [phone] and ask to be transferred to the General Surgery department. documented in this encounterMadison Health07-21-2025 NoteHNO ID: [id number] Author: AMIRAH NICE RN Service: ? Author [...] has been communicated to the patient or surrogate.[facility]07-21-2025 Procedure note* Amirah Nice RN - [...] been communicated to the patient or surrogate. [facility]07-21-2025 Procedure note* Amirah Nice RN - 03/16/2025 [...] the patient or surrogate. documented in this encounterMadison Health07-18-2025 NoteHNO ID: [id number] Author: BALTAZAR COURTNEY MD Service: ? Author [...] - Patient to schedule FNA with front loader residential driver; procedures performed on Mondays and Tuesdays. Diagnoses: (E04.2) Multinodular goiter (primary encounter diagnosis) A letter was sent to Dr. Ortega Medrano MD, MD indicating the above finding for this patient. Return to Clinic: The patient is instructed to follow-up with me 1 week post operatively. (more content not included)...[facility]07-18-2025 History of Present illness Narrative* Baltazar [...] - Patient to schedule FNA with front loader residential driver; procedures performed on Mondays and Tuesdays. Diagnoses: (E04.2) Multinodular goiter (primary encounter diagnosis) A letter was sent to Dr. Ortega Medrano MD, MD indicating the above finding for this patient. Return to Clinic: The patient is instructed to follow-up with me 1 week post operatively. Baltazar Courtney III, MD * Yelitza Whitlock, REC THERAPIST - 03/09/2025 2:19 PM EDT REVIEW OF [...] N/A Yelitza Whitlock LPN documented in this encounterMadison Health07-14-2025 NoteHNO ID: [id number] Author: YELITZA WHITLOCK LPN Service: ? Author [...] screening? N/A Last Colonoscopy: N/A Yelitza Whitlock [facility]06-19-2025 Radiology Diagnostic study note [facility] Imaging Services [address] [place] [address] Thyroid MR#: [id number] Acct: [id number] Name: HAMLET TEIXEIRA Rep #: [id number] : 1985 F 39 From: Pet er Peer DO PCP: Dr. Ortega Medrano MD Status: RE G CLI Study:Thyroid Date of Exam: 02/12/25 Exam# [id number] Ordering Dr: Ortega Medrano MD PROCEDURE: THYROID [...] no more than 2 nodules. [facility] CC: Dr. Ortega Medrano MD ~ Footwear Machinery Instructor: Signed [facility]12-04-2024 NoteHNO ID: [id number] Author: YORDY ANDERSEN MD Service: ? Author [...] MG-POTASSIUM CLAVULANATE 125 MG TABLET Yordy Andersen [facility]12-04-2024 History of Present illness Narrative* Yordy Andersen [...] TABLET Yordy Andersen MD documented in this encounterMadison Health12-03-2024 History of Present illness Narrative* Gómez Younger MD - 07/29/2024 3:00 PM EST @ASSESSMENTBEMYRANDA@ Assessment: Diagnosis Plan 1. Perianal abscess @PLANNAOMI@ Plan: 1. Postop education and instructions are [...] Review of Systems as recordedby the medical office manager has been reviewed by me, and I [...] 07/29/2024 at 3:29 PM. documented in this [facility]12-03-2024 Instructions* Patient Instructions* Maryana Spivey - 07/29/2024 3:00 PM EST -Healed well. documented in this [facility]11-11-2024 History of Present illness Narrative* Gómez [...] Review of Systems as recordedby the medical office manager has been reviewed by me, and I [...] 07/07/2024 at 2:51 PM. documented in this encounterSMarymount HospitalEvaluation note* Diagnosis Onset Date Resolution Status Acne acute DVT (deep venous thrombosis) acute Menorrhagia with regular cycle acute Encounter for routine gynecological examination noneactive [facility] Work Phone: Evaluation note* Diagnosis Perianal abscess- Primary Abscess of anal and rectal regions [facility] Diagnosis Perianal abscess- Primary Abscess of anal and rectal regions [facility]* Diagnosis Acute non-recurrent sinusitis, unspecified location- Primary [facility] in this encounter [facility] noteNo assessment information availableWMercy Health St. [facility] Work Phone: Evaluation note* Diagnosis Multinodular goiter- Primary Nontoxic multinodular goiter [facility]* Diagnosis Multinodular goiter- Primary Nontoxic multinodular goiter documented in this encounter [facility] Author óGmez Casiano [facility] Note Date/Time May 22, 2025 8:22am [facility] [address] [place] [address] OFFICE VISIT Date of Service: 05/22/25 MR#: [id number] Acct: [id number] Name: HAMLET TEIXEIRA p #: [id number] : 1985 Provider: Dr. 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 Ortega Medrano MD ~ [facility] Work Phone: Reason for referral (narrative)No reason for referral information availableWMercy Health St. [facility] Work Phone: Reason for visit Narrative* Consult, Test, Treat (Routine) - Closed Specialty Diagnoses / Procedures Referred By Contjazmin t Referred To Contact General Surgery / GENERAL SURGERY Diagnoses Thyroid nodule fna right thyroid x2 30min Procedures FINE NEEDLE ASPIRATION BX W/O IMG GDN 1ST LESION FINE NEEDLE ASPIRATION BX W/O IMG GDN EA ADDL SURGERY 30 Baltazar Courtney MD [address] [place] [address] Phone: tel: fax: Baltazar Courtney MD [address] [place] [address] Phone: tel: fax: Referral ID Status Reason Start Date Expiration Date Visits Re quested Visits Authorized [id number] Closed 03/12/2025 08/26/2025 1 1 [facility] Summary Purpose Family History No Family History Records Found Relationship Condition Age at Onset Recorded Date/T leo grandmother Malignant neoplasm of breast Unknown father Hypertension Unknown Diabetes mellitus Unknown mother Hypertension Unknown Advance Directives No Advanced Directives Records Found Advance Directive Response Recorded Date/ Time Living Will No May 07, 2021 7:56pm Power of C Python Developer No April 7:56pm Advance Directive Response Recorded Date/ Time Do you have a Healthcare Power of C Python Developer? No May 12, 2025 4:47pm Hospital Course Note [facility] Patient Name: HAMLET TEIXEIRA [address] Date of : [address] [place] [address] Unit Number: [id number] Discharge Summary Patient Status: ADM IN Attending [...] and Reason for Visit Chief Complaint Annual (VET TECH) ACNE, EXCESSIVE AND FREQUENT CYCLE Reason for Visit Acne DVT (deep venous thrombosis) Menorrhagia with regular cycle Encounter for routine gynecological examination Chief Complaint Admit Date [facility] 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HIRE y 2024 10:22am 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 October 25, 2024 7:16 am 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 November 15, 2024 8:4 4am Chief Complaint Admit Date [facility] 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 [employer]HIRE ua 2024 10:22am 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 October 25, 2024 [...] section and content) DATE CREATED AUTHOR 02/15/2018 [facility] ([place]) DATE CREATED AUTHOR AUTHOR'S ORGANIZ ATION 08/05/2018 [facility] DATE CREATED AUTHOR AUTHOR'S ORGANIZ ATION 08/05/2018 [facility] DATE CREATED AUTHOR AUTHOR'S ORGANIZ ATION 03/21/2019 [facility] Ce ramesh Perez DATE CREATED AUTHOR AUTHOR'S ORGANIZ ATION 07/31/2024 [facility] DATE CREATED AUTHOR AUTHOR'S ORGANIZ ATION 05/30/2025 [facility] DATE CREATED AUTHOR AUTHOR'S ORGANIZ ATION 06/19/2025 [facility] DATE CREATED AUTHOR AUTHOR'S ORGANIZ ATION 06/25/2025 [facility] Care Teams (unrecognized sec tion and content) Team Status: Active Member Role Status Dates SOMMER FLYNN Family Provider Active Dr. Sommer Flynn MD Primary Care Provider Active Team Status: Inactive Member Role Status Dates Dr. Sommer Flynn MD Referring Provider Active Michell Woodard SENIOR TRAINING SPECIALIST, SENIOR TRAINING SPECIALIST-C Attending Provider Active Team Status: Inactive Member Role Status Dates Michell Woodard SENIOR TRAINING SPECIALIST, SENIOR TRAINING SPECIALIST-C Attending Provider, Referring Provider Active Dr. Sommer Flynn MD Primary Care Provider Active Woven Label Designer Relationship Specialty Start Date End Date Sommer Flynn MD [address] [place] [address] PCP - General Family Medicine 07/07/24 Woven Label Designer Relationship Specialty Start Date End Date Sommer Flynn MD [address] [place] [address] PCP - General Family Medicine 07/07/24 Woven Label Designer Relationship Specialty Start Date End Date Sommer Flynn MD [address] [place] [address] PCP - General Family Medicine 07/30/24 Team [...] 2025 End: February 05, 2025 Dr. Ortega eMdrano MD Referring Provider Active Start: February 05, [...] February 12, 2025 End: February 12, 2025 Woven Label Designer Relationship Specialty Start Date End Date Sommer Flynn MD PCP - General Family Medicine 07/30/24 Woven Label Designer Relationship Specialty Start Date End Date Ortega Medrano MD [address] [facility] [address] [place], [place] [id number] PCP - General Family Medicine 03/09/25 Woven Label Designer Relationship Specialty Start Date End Date Ortega Medrano MD [address] [facility] [address] [place] [address] [phone] (work) PCP - General Family Medicine 03/09/25 Team [...] 2025 End: April 23, 2025 Dr. Gómez Csaiano MD Referring Provider Active Start: April 23, [...] or prosecute any alcohol or drug abuse patient.[facility] HealthIn the event this information is protected by the Federal Confidentiality of Alcohol and Drug Abuse Patient Records regulations: The Federal rules restrict any use of the information to criminally investigate or prosecute any alcohol or drug abuse patient.[facility] HealthIn the event this information is protected by the Federal Confidentiality of Alcohol and Drug Abuse Patient Records regulations: The Federal rules restrict any use of the information to criminally investigate or prosecute any alcohol or drug abuse patient.[facility] HealthIn the event this information is protected by the Federal Confidentiality of Alcohol and Drug Abuse Patient Records regulations: The Federal rules restrict any use of the information to criminally investigate or prosecute any alcohol or drug abuse patient.[facility] FOR RECORDS PERTAINING TO PATIENTS WHO ARE [...] BE BASED ON THE PRIMARY CLINICAL RECORDS. [facility]. provides no warranty or guarantee of the accuracy or completeness of information in this document.
[2025-07-27 10:52] LABS: Free T3 3.1 pg/mL (2.18-3.98)
== END | disposition home or self-care (01) ==
LOC: MTLAB 07:28
PROVIDERS: PCP Family Medicine; Referring Provider Surgery; Visit Provider Surgery
DX: Z98.890 Other specified postprocedural states (principal); Z90.89 Acquired absence of other organs
CPT/HCPCS: 36415; 84439; 84443; 84481

== ENCOUNTER → 2025-08-26 | Outpatient (CLI) | payer OTHER, SELFPAY ==
--- OUTSIDE RECORDS SUMMARY | 2025-08-26 07:40 | XMS RPT_ITS | CCD ---
Author Organization [facility] Care Team Providers Care Computer Forensics Analyst Name Role Phone SOMMER FLYNN Unavailable Unavailable HRICS, COLT Unavailable Unavailable SOMMER FLYNN Unavailable Unavailable KAREN ARAIZA Unavailable Unavailable IMCA Unavailable Unavailable GINNA CANTU Unavailable Unavailable Dr. Sommer Flynn Referring Provider Vance SENIOR SUSTAINABILITY ADVISOR, SENIOR SUSTAINABILITY ADVISORLibraC Michell Attending Provider [phone] Sommer Flynn MD Primary Care Provider Sommer Flynn MD Primary Care Provider GÓMEZ YOUNGER Attending Unavailable SOMMER FLYNN Primary Care Unavailable GÓMEZ YOUNGER Attending Unavailable SOMMER FLYNN Primary Care Unavailable Dr. Sommer Flynn MD Primary Care Provider Assessment, Health Risk Attending Provider Unava ilable Assessment, Health Risk Referring Provider Unava ilable Dr. Ortega Medrano MD Primary Care Provider [phone] Dr. Ortega Medrano MD Attending Provider Dr. Ortega Medrano MD Referring Provider [phone] Sommer Flynn MD Primary Care Provider Ortega Medrano MD Primary Care Provider Dr. Gómez Casiano MD Attending Provider Dr. Gómez Casiano MD Referring Provider Dr. Ortega Medrano MD Primary Care Physician Dr. Ortega Medrano MD Attending Physician Dr. Gómez Casiano MD Attending Physician Dr. Gómez Casiano MD Nurse Practitioner [phone] Dr. Gómez Casiano MD Admitting Physician MIRANDE, SOMMER E Primary Care Unavailable BALTAZAR COURTNEY Attending Unavailable SCHINNER, ORETGA E Primary Care Unavailable SCHINNER, ORTEGA E Primary Care Unavailable BALTAZAR COURTNEY Referring Unavailable BALTAZAR COURTNEY Attending Unavailable Ortega Medrano E Referring [...] Referring Unavailable SchOrtega menendez Primary Care Unavailable Gómez Casiano Attending Unavailable Gómez Casiano Referring Unavailable [...] once daily. 11/28/2024 Active Start: 06-27-2024 FLUoxetine (AK OZAC) 20 mg capsule Take 20 mg [...] daily. 1 Package 12 06/15/2015 07/30/2024 Discontinued Ryndazeu-Rw-Nzq-Fe-FA ( VITAMIN) tab (1 source) Start: 04-23-2014 End: 07-30-2024 take 1 tablet by mouth once daily Ayfrkjcy-Zd-Cyc-Fe -FA ( VITAMIN) tab Take 1 tablet [...] would appear patient has a 2.2 cm Landis 5 nodule suspicious for unifocal PTC. I held a lengthy conversation today with Mrs. Teixeira regarding her surgical options. I suggested that [place] thyroid Association would generally recommend thyroid lobectomy [...] be able to be managed here in [place]. Lastly, I described the implications for risk [...] Surgery Visit Reporton 06-25 Surgery Visit Report [facility] [address] [place] [address]. [address] [place] [address] OFFICE VISIT Date of Service: 06/25/25 MR#: [id number] Acct: [id number] Name: HAMLET TEIXEIRA Rep #: [id number] : 1985 Provider: Dr. 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 Normal [facility] Free T3on 06-24-2025 Free T3 [Mass/Vol] 3.7 pg/mL Normal 2.18-3.98 [facility] Comment on above: Performed By: #### L 501.9520, L501.13733, L506.0400 #### [facility] [address] [place], [place], [address] T4 Free Directon 06-24-2025 T4 FREE DIRECT 1.70 ng/dL High 0.76-1.46 [facility] Comment on above: Performed By: #### L 501.9520, L501.66643, L506.0400 #### [facility] [address] [facility] [place], [place], [address] Thyroid Stim Hormone (TSH)on 06-24-2025 TSH 0.072 uIU/mL Low 0.300-4.20 0 [facility] Comment on above: Performed By: #### L 501.9520, L501.77634, L506.0400 #### [facility] [address] [place], [address] CYTOLOGY, NON-FEEDER OPERATOR - FNA ONLY on 06-15-2025 CYTOLOGIC DIAGNOSIS Normal [facility] Comment on above: Result Comment: A. 2 ND OPINION CONSULTATION, CYTOLOGY - Thyroid, Right Lower Lobe, FNA ( Collected 03/16/2025): FINAL DIAGNOSIS: Atypia Of Undetermined Significance B. 2ND OPINION ADDITIONAL CONSULTATION, CYTOLOGY - Thyroid, Right Upper Middle, FNA: FINAL DIAGNOSIS: Suspicious For Papillary Thyroid Carcinoma at 1123 EDT Performed By: #### N ONGNFNA #### [facility] (DEFAULT) [address] [place] [address] Case Report Normal [facility] Comment on above: Result Comment: [facility] Cytology Report Case: [id number] Authorizing Provider: Gómez Casiano MD Collected: 06/15/2025 11:22 AM Ordering Location: [facility] Received: 06/15/2025 09:20 AM [facility] Specimens: A) - THYROID FNA, Thyroid, Right Lower Lobe, FNA ( Collected 03/16/2025) B) - THYROID FNA, Thyroid, Right Upper Middle, FNA Performed By: #### N ONGNFNA #### [facility] (DEFAULT) [address] [place] [address] Clinical History Normal [facility] Comment on above: Result Comment: Rece ived is a request from Keiry Mckeon MD at [facility] for a second opinion consultation: 39 F with multiple thyroid nodules. FNA performed @[facility]: Atypia (A), Suspicious for PTC (B). Thyroidectomy @ [facility] reported as benign. Surgeon (Gómez Casiano MD) requests second opinion. Note: Afirma for Atypia (A) reported as benign. (Afirma not performed on part B). Performed By: #### N ONGNFNA #### [facility] (DEFAULT) [address] [place] [address] Gross Description Normal [facility] Comment on above: Result Comment: Subm itted from [facility], [facility] [address] are twenty two (22) slides labeled [id number]. An identifying pathology report is included along with Afirma report. Outside slides are returned in sixty (60) days under separate cover with our number recorded on them. Performed By: #### N ONGNFNA #### [facility] (DEFAULT) [address] [address] Professional Interpretation Performed at: [facility] Comment on above: Result Comment: For Immediate Release to Patient's [facility]? Yes [facility] [address] [address] Performed By: #### N ONGNFNA #### [facility] (DEFAULT) [address] [address] SURG PATH REQUESTon 06-12-20 Case Report [facility] Comment on above: Result Comment: Surg ical Pathology Report Case: [id number] Authorizing Provider: Kiery Mckeon MD Collected: 06/12/2025 02:28 PM Ordering Location: [facility] Received: 06/12/2025 02:28 PM [facility] Pathologist: Meghann Carter MD Specimen: SURG PATH, Thyroid, total thyroidectomy Performed By: #### S URGP #### [facility] (DEFAULT) [address] [address] Clinical History Normal [facility] Comment on above: Result Comment: Rece ived is a request from Keiry Mckeon MD at [facility] for a second opinion consultation: 39 F with multiple thyroid nodules. FNA performed @[facility]: Atypia (A), Suspicious for PTC (B). Thyroidectomy @ [facility] reported as benign. Surgeon (Gómez Casiano MD) requests second opinion. Note: Afirma for Atypia (A) reported as benign. (Afirma not performed on part B). Performed By: #### S URGP #### [facility] (DEFAULT) [address] [address] Diagnosis Comments [facility] Comment on above: Performed By: #### S URGP #### [facility] (DEFAULT) [address] [place] [address] Gross Description [facility] Comment on above: Result Comment: The following material(s) are received from [facility], [address] [place] [address], with an identifying surgical pathology report as well as [facility] Cytology report ([id number]) included for review: 11 H&E slide(s) labeled [id number]. Outside materials are returned in upon completion under separate cover with our number recorded on them. Grosser for this case was: Agnes Garza Performed By: #### S URGP #### [facility] (DEFAULT) [address] [address] Microscopic Description A microscopic examination was performed. [facility] Comment on above: Performed By: #### S URGP #### [facility] (DEFAULT) [address] [address] Pathologic Diagnosis [facility] Comment on above: Result Comment: Outs trevon Slides: [id number] (05/12/25) A. 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 Background thyroid with benign follicular nodular disease and patchy chronic lymphocytic thyroiditis. at 1105 EDT Performed By: #### S URGP #### [facility] (DEFAULT) [address] [address] Professional Interpretation Performed at: [facility] Comment on above: Result Comment: Prof essional interpretation performed remotely at a secondary location, address on file. For Immediate Release to Patient's Simple Tithehart? Yes Performed By: #### S URGP #### [facility] ([facility]) [address] [place], [place] [address] CNPLinda 05-22-2025 MALIKA Telephone ([employer]) HAMLET TEIXEIRA ([id number]) 1985 F [facility] Date Time Provider Department 05/22/25 BALTAZAR COURTNEY [facility] During your visit today, we recorded [...] Megan provided phone number to contact [facility] pathology and informed of link for second opinion: [email or web address] Yelitza Whitlock LPN Allergies As of Date: [...] Status:Closed by YELITZA WHITLOCK on 05/22/25 Normal [facility] Surgery Visit Reporton 05-22 Surgery Visit Report [facility] [address] [place] [address]. [address] [place] [address] OFFICE VISIT Date of Service: 05/22/25 MR#: [id number] Acct: [id number] Name: HAMLET ETIXEIRA Rep #: [id number] : 1985 Provider: Dr. 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 Normal [facility] Anion gap in Serum or Plasma Ordered By: Gómez Casiano on 05-13-2025 Anion gap [Moles/Vol] 12 mmol/L 5-[address] [facility] BUN/creatinine ratioOrdered By: Gómez Casiano on 05-13-2025 Urea nitrogen/Creatinine [Mass ratio] 10.6 mg/mg 10-20 [facility] Bilirubin, totalOrdered By: Gómez Casiano on 05-13-2025 Bilirubin [Mass/Vol] 0.73 mg/dL 0.00-1.30 [facility] Carbon dioxide, total [Moles /volume] in Central venous bloodOrdered By: Gómez Casiano on 05-13-2025 CO2 [Moles/Vol] 21.6 mmol/L 21.0-32.0 [facility] Chloride assayOrdered By: Gillian Casiano on 05-13-2025 Chloride [Moles/Vol] 106 mmol/L 98-108 [facility] Comprehensive Metabolic Prof ilon 05-13-2025 Albumin [Mass/Vol] 4.0 g/dL Normal 3.5-5.0 [facility] Comment on above: Performed By: #### L 500.4050 #### [facility] [address] [place], [address] Albumin/Globulin [Mass ratio] 1.5 {ratio} Normal 0.9-2.4 [facility] Comment on above: Performed By: #### L 500.4050 #### [facility] [address] [place], [address] ALK PHOS 81 U/L Normal 35-104 [facility] Comment on above: Performed By: #### L 500.4050 #### [facility] [address] [place], [address] ALT [Catalytic activity/Vol] 63 U/L High <=34 [facility] Comment on above: Performed By: #### L 500.4050 #### [facility] [address] [place], [address] AST [Catalytic activity/Vol] 60 U/L High <=31 [facility] Comment on above: Performed By: #### L 500.4050 #### [facility] [address] [place], [address] Bilirubin [Mass/Vol] 0.73 mg/dL Normal 0.00-1.30 [facility] Comment on above: Performed By: #### L 500.4050 #### [facility] [address] [place], [address] BUN/CRE 10.6 RATIO Normal 10-20 [facility] Comment on above: Performed By: #### L 500.4050 #### [facility] [address] [place], [address] Calcium [Mass/Vol] 8.7 mg/dL Normal 7.6-11.0 [facility] Comment on above: Performed By: #### L 500.4050 #### [facility] [address] [place], [address] Chloride [Moles/Vol] 106 mmol/L Normal 98-108 [facility] Comment on above: Performed By: #### L 500.4050 #### [facility] [address] [place], [address] CO2 [Moles/Vol] 21.6 mmol/L Normal 21.0-32.0 [facility] Comment on above: Performed By: #### L 500.4050 #### [facility] [address] [place], [address] Creatinine [Mass/Vol] 0.75 mg/dL Normal 0.70-1.[address] [facility] Comment on above: Performed By: #### L 500.4050 #### [facility] [address] [place], [address] ECRCL 117.01 ml/min Normal 50-250 [facility] Comment on above: Performed By: #### L 500.4050 #### [facility] [address] [place], [address] GAP 12 Normal 5-15 [facility] Comment on above: Performed By: #### L 500.4050 #### [facility] [address] [place], [address] GFR/1.73 sq M.predicted among non-blacks MDRD (S/P/Bld) [Vol rate/Area] 105 mL/min/{1.73_m2} Normal >60 [facility] Comment on above: Result Comment: mL/m in/1.73m2 CKD-EPI Creatinine Equation (2020) Performed By: #### L 500.4050 #### [facility] [address] [place], [address] Globulin (S) [Mass/Vol] 2.8 g/dL Normal 2.2-4.2 [facility] Comment on above: Performed By: #### L 500.4050 #### [facility] [address] [place], [address] Glucose [Mass/Vol] 171 mg/dL High 70-99 [facility] Comment on above: Performed By: #### L 500.4050 #### [facility] [address] [place], [address] Potassium [Moles/Vol] 3.4 mmol/L Normal 3.3-5.[address] [facility] Comment on above: Performed By: #### L 500.4050 #### [facility] [address] [place], [address] Sodium [Moles/Vol] 140 mmol/L Normal 133-145 [facility] Comment on above: Performed By: #### L 500.4050 #### [facility] [address] [place], [address] T PROT 6.8 g/dL Normal 5.9-8.4 [facility] Comment on above: Performed By: #### L 500.4050 #### [facility] [address] [place], [address] Urea nitrogen [Mass/Vol] 8 mg/dL Normal 4-19 [facility] Comment on above: Performed By: #### L 500.4050 #### [facility] [address] [place], [address] Discharge Instructionon 04-27 Discharge Instruction [facility] Medical Records Department [address] [place] [address] Instructions for Home/Discharge Instructions 05/13/25 0755 MR#: [id number] Acct: [id number] Name: HAMLET TEIXEIRA Rep #: [id number] : 1985 39 From: Gómez Casiano MD [...] CC: Dr. Ortega Medrano MD Signed Normal [facility] Glomerular filtration rate ( GFR) estimation/1.73 sq m using serum, plasma, or whole bOrdered By: Gómez Casiano on 05-13-2025 GFR/1.73 sq M.predicted among non-blacks MDRD (S/P/Bld) [Vol rate/Area] 105 mL/min/{1.73_m2} >60 [place] [facility] Comment on above: mL/min/1.73m2 CKD-EP I Creatinine Equation (2020) Laboratory - Chemistry and C hemistry - challengeOrdered By: Gómez Casiano on 05-13-2025 AST [Catalytic activity/Vol] 60 U/L High <32 [facility] PTHINon 05-13-2025 PTH 58 pg/mL Normal 11-61 [facility] Comment on above: Performed By: #### L 400.7601 #### [facility] [address] [place], [address] Potassium measurement (mass/ volume)Ordered By: Gómez Casiano on 05-13-2025 Potassium (Unsp spec) [Mass/Vol] 3.4 mmol/L 3.3-5.1 [facility] Serum creatinine measurement (mass/volume)Ordered By: Gómez Casiano on 05-13-2025 Creatinine [Mass/Vol] 0.75 mg/dL 0.70-1.[address] [facility] Serum globulin measurementOr dered By: Gómez Casiano on 05-13-2025 Globulin (S) [Mass/Vol] 2.8 g/dL 2.2-4.2 [facility] Serum glucose measurement (m ass/volume)Ordered By: Gómez Casiano on 05-13-2025 Glucose [Mass/Vol] 171 mg/dL High 70-99 [facility] Serum or plasma alanine gorman otransferase (ALT) measurementOrdered By: Gómez Casiano on 05-13-2025 ALT [Catalytic activity/Vol] 63 U/L High <35 [facility] Serum or plasma albumin harry urement (mass/volume)Ordered By: Gómez Casiano on 05-13-2025 Albumin [Mass/Vol] 4.0 g/dL 3.5-5.0 [facility] Serum or plasma albumin/glob ulin mass ratioOrdered By: Gómez Casiano on 05-13-2025 Albumin/Globulin [Mass ratio] 1.5 {ratio} 0.9-2.4 [facility] Serum or plasma alkaline domi sphatase measurementOrdered By: Gómez Casiano on 05-13-2025 ALP [Catalytic activity/Vol] 81 U/L 35-104 [facility] Serum or plasma calcium harry urement (mass/volume)Ordered By: Gómez Casiano on 05-13-2025 Calcium [Mass/Vol] 8.7 mg/dL 7.6-11.0 [facility] Serum or plasma urea nitroge n measurement (mass/volume)Ordered By: Gómez Casiano on 05-13-2025 Urea nitrogen [Mass/Vol] 8 mg/dL 4-19 [facility] Sodium levelOrdered By: Omer honeycutt Oh on 05-13-2025 Sodium [Moles/Vol] 140 mmol/L 133-145 [facility] Total proteinOrdered By: Sadiq molina Oh on 05-13-2025 Protein [Mass/Vol] 6.8 g/dL 5.9-8.4 [facility] MR/POSTOP.ANEon 05-12-2025 MR/POSTOP.ANE [facility] Medical Records Department [address] [place] [address] Anesthesia Postop Eval I 05/12/25 1508 MR#: [id number] Acct: [id number] Name: HAMLET TEIXEIRA Rep #: [id number] : 1985 39 From: Estella Henry CRNA PCP: Dr. Ortega Medrano MD Status:[place] [facility] [place] Race: C Location: [place] [address] Anesthesia: Postop Eval I Current Vital Signs [...] CRNA Cosigner Signature: Date CC: Signed Normal [facility] MR/[id number] 05-12-2025 MR/POSTOPAN2 [facility] Medical Records Department [address] [place] [address] Anesthesia Postop Eval II 05/12/25 1709 MR#: [id number] Acct: [id number] Name: HAMLET TEIXEIRA Rep #: [id number] : 1985 39 From: Leighton Copeland MD PCP: Dr. Ortega Medrano MD Status:ADM BONI Y Race: C Location: [address] Anesthesia Postop Eval I Sum Postop Eval Completion status Anesthesia document: Postop Eval 1 completed: Yes Anesthesia Postop Eval I Summary Anesthesia Postop Eval I Summary: Anesthesia Postop Eval I: Assessment Summary Airway patent Yes 05/12/25 15:10 [employer]IST[employer].GDOTT Spontaneous unlabored Yes 05/12/25 15:10 [employer]GDOTT respirations Mental status Awake,Calm 05/12/25 15:10 [employer]ES ASSIST[employer].GDOTT nausea No 05/12/25 15:10 [employer]ES ASSIST[employer].GDOTT Vomiting No 05/12/25 15:10 SALES ASSIST[employer]TER[employer].GDOTT Anesthesia Postop Eval I: Fluid Summary Crystalloid volume administer 1,400 05/12/25 15:10 SALES ASSIST[employer].GDOTT (ml) Colloids volume administered ( ml) Blood Product volume administered (ml) Total IV fluid infused 1,400 05/12/25 15:10 SALES ASSISTANT [employer]TER[employer]MENT [employer].GDOTT Anesthesia Postop Eval I: Summary Notes Anesthesia Complication No 05/12/25 15:10 SALES ASSIST[employer].GDOTT Anesthesia Complication Comment: Post-operative progress note Anesthesia: [...] Leighton Maldonado Signature: Date CC: Signed Normal [facility] Operative Reporton 5 Operative Report [facility] Medical Records Department [address] [place] [address] Operative Report 05/12/25 1448 MR#: [id number] Acct: [id number] Name: HAMLET TEIXEIRA Rep #: [id number] : 1985 39 From: Gómez Casiano MD PCP: Dr. Ortega Medrano MD Status:ADM BONI Location: [place] [address] Procedures Endocrine CF Procedures [id number]: [address] Removal of thyroid Operative Report (Standard) Operative Information Date of Procedure: 05/12/25 Pre-Operative Diagnosis: Papillary thyroid carcinoma right thyroid lobe Post-Operative Diagnosis: Same Surgery/Procedure Performed: Total thyroidectomy with intraoperative nerve monitoring ip technology transactions attorney: Yes Stopper Maker Helper: Rosalinda Schmitt Tasks completed by instructional support assistant: Opening closing and Retracting Type [...] innominate ar (more content not included)... Normal [facility] PTHINon 05-12-2025 PTH 76 pg/mL High 11-61 [facility] Comment on above: Performed By: #### L 501.9520, L501.71226, L506.0400 #### [facility] [address] [place], [place], [address] ,Urineon 05-12-2025 Beta HCG ( test) Ql (U) [facility] Comment on above: Result Comment: Canc elled via OM: patient refused Performed By: #### L 400.7600 #### [facility] [address] [place], [place], [address] INTERNAL QC OK? [facility] Comment on above: Result Comment: Canc elled via OM: patient refused Performed By: #### L 400.7600 #### [facility] [address] [place], [place], [address] RECORD KIT LOT# [facility] Comment on above: Result Comment: Canc elled via OM: patient refused Performed By: #### L 400.7600 #### [facility] [address] [place], [address] Surgery Specimen Level Von 0 05-12-2025 Surgery Specimen Level V -------- Patient Age/Sex Location Account Attending Physician -------- HAMLET TEIXEIRA ZO 39/F MS3 [id number] Dr. Gómez Casiano MD -------- Specimen: [id number] Received: 05/12/25 Status: RYAN Jainana laura Num: [id number] Spec Type: THYROID Subm Dr: Dr. Gómez [...] ink. A definitive capsule is not identified. Senior Maintenance Mechanic sections are submitted, to include the entirety of the nodules (approximately 90% of the specimen) as follows: A1-A4: Nodule #1A5-A7: Nodules #1 and #2A8: Nodule #3 to nodule #2, perpendicularA9: Nodule #3, perpendicular and isthmus/pyramidal shxxQ47-M09: Nodule #4 FL 05/13/2025 [facility]:[id number] -------- Patient Age/Sex Location Account Attending Physician -------- PUNEETHAMLET PATHAK 39/F MS3 [id number] Dr. Gómez Casiano MD -------- ADDENDUM Addendum 2 Entered: 06/19/25 This addendum is added to incorporate an outside pathology consultation report. The case was examined at [facility] by Dr. Carter (#[id number]) and the following diagnosis was rendered. A. [...] Addendum 1 Entered: 06/11/25 Expert consultation at [facility] and correlation with the thyroid FNA performed at [facility] ([facility]F [id number]) is PENDING per Dr Casiano's request. A separate report from [facility] will follow. Addendum Signed (signature on file) Dr. Keiry Mckeon MD 06/11/25900 -------- -------- Patient Age/Sex Location Account Attending Physician -------- HAMLET TEIXEIRA 39/F MS3 [id number] Dr. Gómez Casiano MD -------- Signed (signature on file) Dr. Gregorio Riggins MD 05/18/25 1331 (more content not included)... Normal [facility] Comment on above: Performed By: #### L 3400.8000 #### [facility] [address] [place], [address] Head/Neck Soft Tissueon - Head/Neck Soft Tissue [facility] [address] [place], [place] [address] Head/Neck Soft Tissue MR#: [id number] Acct: [id number] Name: HAMLET TEIXEIRA Rep #: [id number] : 1985 F 39 From: Ian wang MD PCP: Dr. Ortega Medrano MD Status: REG CLI Study: Head/Neck Soft Tissue Date of Exam: 04/23/25 Exam# [id number] Ordering Dr: Gómez Casiano MD ADDENDUM by Dr. Ian Cox MD on 04/28/25 at 1320 The lymph node as a normal appearing fatty hilum and good cortical thickness. This suggests benignity. Reading Location: [facility]-IR-1 04/28/25 1321 Date cc: Dr. [...] right side of the neck. Reading Location: [facility] CC: Dr. Ortega Medrano MD; Dr. Gómez Casiano MD Relief Pilot: Signed Normal [facility] Surgery Visit Reporton 04-17 Surgery Visit Report [facility] [address] [place] [address] OFFICE VISIT Date of Service: 04/17/25 MR#: [id number] Acct: [id number] Name: HAMLET TEIXEIRA Rep #: [id number] : 1985 Provider: Dr. 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 The latter [...] problems, arth (more content not included)... Normal [facility] THYROID FNA ANALYSISo n 03-16-2025 AFFISCHER Normal [facility] Comment on above: Order Comment: Speci men Type: SPECIMEN OBTAINED BY ASPIRATION Ordering Facility: [facility] Address: [address] [place] [address] Result Comment: View results in Scanned Documents link when available. Performed By: #### A EVETTE #### [facility] CLIA [id number] [address] [place] [address] [place] [address] [place] CNOVon 03-16-2025 CNOV Office Visit (GENSWS ) HAMLET TEIXEIRA ([id number]) 1985 F [facility] Date Time Provider Department 03/16/25 1:30 PM [...] to your office visit today with the [facility] General Surgeons. Instructions After THYROID FINE [...] you have any questions or concerns @ [phone]. Please make an appointment to follow up in one week with your physician and thank you for choosing the [facility]. If you note any additional difficulties, questions, or concerns, you should contact our office immediately @ [phone] and ask to be transferred to the [...] Modules accepted: Orders Referring Provider: BALTAZAR COURTNEY [[id number]] Allergies As of Date: 03/16/2025 (No Known Allergies) Date Reviewed: 03/09/2025 Reviewed by: Yelitza Whitlock LPN - Fully Assessed Primary Visit Diagnosis:Multinodular goiter [E04.2] Order(s):US THYROID BIOPSY RIGHT (POC) SURG USE ONLY [1764982] Order #: [id number]. #:[id number]: 1 CYTOLOGY NON-FEEDER OPERATOR [[id number]] Order #: [id number]. #:[id number] CYTOLOGY NON-FEEDER OPERATOR [[id number]] Order #: [id number]. #:[id number] Prescriptions as of 03/17/2025 - FLUoxetine (PROZAC) [...] instructions fr (more content not included)... Normal [facility] CYTOLOGY NON-GYNon ADDENDUM 1: Normal [facility] Comment on above: Order Comment: Speci men Type: SPECIMEN OBTAINED BY ASPIRATION Ordering Facility: [facility] Address: [address] [place] [address] Result Comment: Tawny cted slides from part B has been reviewed with Dr. Rell Garcias who concurs. Addendum electronically signed by Carlito Palma MD, PhD on 05/27/2025 at 1434 EDT Performed By: #### C YTONON #### [facility] CLIA [id number] [address] [place] [address] [facility] AP DISCLAIMER Normal [facility] Comment on above: Order Comment: Speci men Type: SPECIMEN OBTAINED BY ASPIRATION Ordering Facility: [facility] Address: [address] [place] [address] Result Comment: Darrin sarah Developed Test (LDT) Disclaimer: Performance characteristics of immunohistochemical, immunofluorescent, and chromogenic in-situ hybridization tests have been determined by the performing laboratory within [facility] ([facility], [facility], [facility], [facility], [facility], [facility], or [facility]) in a manner consistent with CLIA [...] appropriately. Performed By: #### C YTONON #### [facility] CLIA [id number] [address] [place] [address] [place] CASE REPORT Normal [facility] Comment on above: Order Comment: Speci men Type: SPECIMEN OBTAINED BY ASPIRATION Ordering Facility: [facility] Address: [address] [place] [address] Result Comment: [facility] Cytology Report Case: [id number] Authorizing Provider: Baltazar Courtney MD Collected: 03/16/2025 01:51 PM Ordering Location: General Surgery Received: 03/17/2025 07:18 AM Pathologist: Carlito Palma MD, PhD Specimens: A) - Thyroid, Right, Lobe, right lower lobe B) - Thyroid, Right, Lobe, right upper middle Performed By: #### C YTONON #### [facility] CLIA [id number] [address] [place] [address] [facility] CLINICAL HISTORY thyroid nodules Normal [facility] Comment on above: Order Comment: Speci men Type: SPECIMEN OBTAINED BY ASPIRATION Ordering Facility: [facility] Address: [address] [place] [address] Result Comment: Afirma received for A, B Performed By: #### C YTONON #### [facility] CLIA [id number] [address] [place] [address] FINAL DIAGNOSIS Normal [facility] Comment on above: Order Comment: Speci men Type: SPECIMEN OBTAINED BY ASPIRATION Ordering Facility: [facility] Address: [address] [place] [address] Result Comment: A - Thyroid, Right, Lobe, FNA - right lower lobe Atypia of undetermined significance. (See comment) B - Thyroid, Right, Lobe, FNA - right upper middle Suspicious for papillary thyroid carcinoma. at 1256 EDT Performed By: #### C YTONON #### [facility] CLIA [id number] [address] [place] [address] OF [place] FINAL PERFORMING LAB Normal [facility] Comment on above: Order Comment: Speci men Type: SPECIMEN OBTAINED BY ASPIRATION Ordering Facility: [facility] Address: [address] [place] [address] Result Comment: Tech nical component, upholstery estimator screening performed at: [facility], [address] [place] [address] [place] [address] CLIA: [id number] Diagnostic interpretation performed at: [facility], [address] [place] [address] [place] [address] CLIA# [id number] Internal Medicine Nurse: Rashaun Tavera MD Performed By: #### C YTONON #### [facility] CLIA [id number] [address] [place] [address] OF [place] GROSS DESCRIPTION Normal [facility] Comment on above: Order Comment: Speci men Type: SPECIMEN OBTAINED BY ASPIRATION Ordering Facility: [facility] Address: [address] [place] [address] Result Comment: A. T hyroid, Right, Lobe 30 cc clear colorless CytoLyt . ThinPrep prepared and 8 smears. Afirma received B. Thyroid, Right, Lobe 30 cc clear light pink CytoLyt . ThinPrep prepared and 12 smears. Afirma received Performed By: #### C YTONON #### [facility] CLIA [id number] [address] [place] [address] OF [place] ADDENDUM 1: Normal [facility] Comment on above: Order Comment: Speci men Type: SPECIMEN OBTAINED BY ASPIRATION Ordering Facility: [facility] Address: [address] [place] [address] Result Comment: Tawny cted slides from part B has been reviewed with Dr. Rell Gacrias who concurs. Addendum electronically signed by Carlito Palma MD, PhD on 05/27/2025 at 1434 EDT Performed By: #### C YTONON #### [facility] CLIA [id number] [address] [place] [address] [place] AP DISCLAIMER Normal [facility] Comment on above: Order Comment: Speci men Type: SPECIMEN OBTAINED BY ASPIRATION Ordering Facility: [facility] Address: [address] [place] [address] Result Comment: Darrin sarah Developed Test (LDT) Disclaimer: Performance characteristics of immunohistochemical, immunofluorescent, and chromogenic in-situ hybridization tests have been determined by the performing laboratory within [facility]'s [facility] Pathology and Laboratory Medicine Department ([facility], [facility], [facility], [facility], [facility], [facility], or [facility]) in a manner consistent with CLIA [...] appropriately. Performed By: #### C YTONON #### [facility] CLIA [id number] [address] [place] [address] [place] CASE REPORT Normal [facility] Comment on above: Order Comment: Speci men Type: SPECIMEN OBTAINED BY ASPIRATION Ordering Facility: [facility] Address: [address] [place] [address] Result Comment: [facility] Cytology Report Case: [id number] Authorizing Provider: Baltazar Courtney MD Collected: 03/16/2025 01:51 PM Ordering Location: General Surgery Received: 03/17/2025 07:18 AM Pathologist: Carlito Palma MD, PhD Specimens: A) - Thyroid, Right, Lobe, right lower lobe B) - Thyroid, Right, Lobe, right upper middle Performed By: #### C YTONON #### [facility] CLIA [id number] [address] [place] [address] [place] CLINICAL HISTORY thyroid nodules Normal [facility] Comment on above: Order Comment: Speci men Type: SPECIMEN OBTAINED BY ASPIRATION Ordering Facility: [facility] Address: [address] [place] [address] Result Comment: Afirma received for A, B Performed By: #### C YTONON #### [facility] CLIA [id number] [address] [place] [address] [facility] FINAL DIAGNOSIS Normal [facility] Comment on above: Order Comment: Speci men Type: SPECIMEN OBTAINED BY ASPIRATION Ordering Facility: [facility] Address: [address] [place] [address] Result Comment: A - Thyroid, Right, Lobe, FNA - right lower lobe Atypia of undetermined significance. (See comment) B - Thyroid, Right, Lobe, FNA - right upper middle Suspicious for papillary thyroid carcinoma. at 1256 EDT Performed By: #### C YTONON #### [facility] CLIA [id number] [address] [place] [address] [facility] FINAL PERFORMING LAB Normal [facility] Comment on above: Order Comment: Speci men Type: SPECIMEN OBTAINED BY ASPIRATION Ordering Facility: [facility] Address: [address] [place] [address] Result Comment: Tech nical component, upholstery estimator screening performed at: [facility], [address] [place] [address] CLIA: [id number] Diagnostic interpretation performed at: [facility], [address] [place] [address] CLIA# [id number] Internal Medicine Nurse: Rashaun Tavera MD Performed By: #### C YTONON #### [facility] CLIA [id number] [address] [place] [address] [place] GROSS DESCRIPTION Normal [facility] Comment on above: Order Comment: Speci men Type: SPECIMEN OBTAINED BY ASPIRATION Ordering Facility: [facility] Address: [address] [place] [address] Result Comment: A. T hyroid, Right, Lobe 30 cc clear colorless CytoLyt . ThinPrep prepared and 8 smears. Afirma received B. Thyroid, Right, Lobe 30 cc clear light pink CytoLyt . ThinPrep prepared and 12 smears. Afirma received Performed By: #### C CONCHIS #### [facility] CLIA [id number] [address] [place] [address] STATES OF [place] US THYROID BIOPSY RIGHT (POC ) SURG USE ONLYon 03-16-2025 [facility] CNOVon 03-09-2025 CNOV Office Visit (GENSWS ) HAMLET TEIXEIRA ([id number]) 1985 [facility] Date Time Provider Department 03/09/25 2:45 PM [...] Alcohol use: (more content not included)... Normal [facility] Thyroidon 02-12-2025 Thyroid [facility] Imaging Services [address] [place], [place] [address] Thyroid MR#: [id number] Acct: [id number] Name: HAMLET TEIXEIRA Rep #: [id number] : 1985 F 39 From: Mateo Rock DO PCP: Dr. Ortega Medrano MD Status: REG CLI Study: Thyroid Date of Exam: 02/12/25 Exam# [id number] Ordering Dr: Ortega Medrano MD PROCEDURE: THYROID [...] Location: [facility]- CC: Dr. Ortega Medrano MD Relief Pilot: Signed Normal [facility] Thyroglobulin w/Anti-TG ABon 02-11-2025 Anti-TG AB < 1.0 Normal 0.0-0.9 [facility] Comment on above: Order Comment: Order Date: 02/05/25 Order Info: 22737-0 - TSIMM Result Comment: Thyr oglobulin Antibody measured by Areli Ayanna Methodology It should be noted that the presence of thyroglobulin antibodies may not be pathogenic nor diagnostic, especially at very low levels. The assay elastic attacher coverstitch has found that four percent of individuals without evidence of thyroid disease or autoimmunity will have positive TgAb levels up to 4 IU/mL. Performed By: #### L 3300.6900, L503.0106, L3300.6820, L506.1001 #### [facility] [address] [place], [address] THYROGLOB QUANT 113.2 ng/mL High 1.5-38.5 [facility] Comment on above: Order Comment: Order Date: 02/05/25 Order Info: 31849-4 - TSIMM Result Comment: Acco rding to [...] #### L 3300.6900, L503.0106, L3300.6820, L506.1001 #### [facility] [address] [place], [place], [address] Thyroid Peroxidase ABon - THYR PEROX AB < 9 Normal 0-34 [facility] Comment on above: Order Comment: Order Date: 02/05/25Order Info: 72783-1 - TSIMM Result Comment: Perf ormed at: [facility] [id number] Truck Sales Manager: Kartik Cano MD, Phone: [phone] Performed at: [facility] [address] [id number] Truck Sales Manager: Rodrigo Edmondson PhD, Phone: [phone] Performed By: #### L 400.1213 #### [facility] [address] [place], [address] Thyroid Stim Immunoglobon THY STIM IMMUNO <0.10 Normal 0.00-0.55 [facility] Comment on above: Order Comment: Order Date: 02/05/25 Order Info: 86196-3 - TSIMM Performed By: #### L 3400.4700 #### [facility] [address] [place], [place], [address] Absolute lymphocyte countOrd ered By: Ortega Medrano on 02-05-2025 Lymphocytes Auto (Unsp spec) [#/Vol] 3.19 10*3/uL 0.83-4.51 [facility] Absolute neutrophil countOrd ered By: Ortega Medrano on 02-05-2025 Neutrophils (Bld) [#/Vol] 7.0 10*3/uL 2.0-7.7 [facility] Anion gap in Serum or Plasma Ordered By: Ortega Medrano on 02-05-2025 Anion gap [Moles/Vol] 12 mmol/L 5-[address] [facility] Automated lymphocyte count a s percentage of total leukocytesOrdered By: Ortega Medrano on 02-05-2025 Lymphocytes/100 WBC Auto (Unsp spec) 29.0 % 19-41 [facility] BUN/creatinine ratioOrdered By: Ortega Medrano on 02-05-2025 Urea nitrogen/Creatinine [Mass ratio] 9.1 mg/mg Low 10-20 [facility] Basophil percentageOrdered B y: Ortega Medrano on 02-05-2025 Basophils/100 WBC (Bld) 0.8 % 0-1 [facility] Bilirubin, totalOrdered By: Ortega Medrano on 02-05-2025 Bilirubin [Mass/Vol] 0.31 mg/dL 0.00-1.30 [facility] CBC W/Diff, Automatedon 01-25 Absolute Lymph 3.19 X10 3/uL Normal 0.83-4.51 [facility] Comment on above: Order Comment: Order Date: 02/05/25Order Info: 0184-1 - CBCD Performed By: #### L 400.7600 #### [facility] [address] [place], [address] Absolute Neut 7.0 X10 3/uL Normal 2.0-7.7 [facility] Comment on above: Order Comment: Order Date: 02/05/25Order Info: 0184-1 - CBCD Performed By: #### L 400.7600 #### [facility] [address] [place], [address] Basophils/100 WBC (Bld) 0.8 % Normal 0-1 [facility] Comment on above: Order Comment: Order Date: 02/05/25Order Info: 0184-1 - CBCD Performed By: #### L 400.7600 #### [facility] [address] [place], [address] Eosinophils/100 WBC (Bld) 0.8 % Normal 0-5 [facility] Comment on above: Order Comment: Order Date: 02/05/25Order Info: 4-1 - CBCD Performed By: #### L 400.7600 #### [facility] [address] [place], [address] Erythrocyte distribution width (RBC) [Ratio] 11.9 % Normal 11.6-14.6 [facility] Comment on above: Order Comment: Order Date: 02/05/25Order Info: 0184-1 - CBCD Performed By: #### L 400.7600 #### [facility] [address] [place], [address] Hematocrit (Bld) [Volume fraction] 39.8 % Normal 37-47 [facility] Comment on above: Order Comment: Order Date: 02/05/25Order Info: 0184-1 - CBCD Performed By: #### L 400.7600 #### [facility] [address] [place], [address] Hemoglobin (Bld) [Mass/Vol] 13.0 g/dL Normal 12.0-15.0 [facility] Comment on above: Order Comment: Order Date: 02/05/25Order Info: 0184-1 - CBCD Performed By: #### L 400.7600 #### [facility] [address] [place], [address] IG% 0.400 Normal 0.0-0.9 [facility] Comment on above: Order Comment: Order Date: 02/05/25Order Info: 183- - CBCD Result Comment: IG% - Immature Granulocytes (promyelocytes, myelocytes and metamyelocytes) > 1% indicates that a LEFT SHIFT is Present. Performed By: #### L 400.7600 #### [facility] [address] [place], [address] Lymphocytes/100 WBC (Bld) 29.0 % Normal 19-41 [facility] Comment on above: Order Comment: Order Date: 02/05/25Order Info: 183- - CBCD Performed By: #### L 400.7600 #### [facility] [address] [place], [address] MCH (RBC) [Entitic mass] 30.2 pg Normal 27.0-32.0 [facility] Comment on above: Order Comment: Order Date: 02/05/25Order Info: 183- - CBCD Performed By: #### L 400.7600 #### [facility] [address] [place], [address] MCHC (RBC) [Mass/Vol] 32.7 g/dL Normal 32-[address] [facility] Comment on above: Order Comment: Order Date: 02/05/25Order Info: 183- - CBCD Performed By: #### L 400.7600 #### [facility] [address] [place], [address] MCV (RBC) [Entitic vol] 92.3 fL Normal 81-99 [facility] Comment on above: Order Comment: Order Date: 02/05/25Order Info: 183- - CBCD Performed By: #### L 400.7600 #### [facility] [address] [place], [address] Monocytes/100 WBC (Bld) 5.7 % Normal 0-10 [facility] Comment on above: Order Comment: Order Date: 02/05/25Order Info: 4-1 - CBCD Performed By: #### L 400.7600 #### [facility] [address] [place], [address] Neutrophils/100 WBC (Bld) 63.3 % Normal 47-70 [facility] Comment on above: Order Comment: Order Date: 02/05/25Order Info: 4- - CBCD Performed By: #### L 400.7600 #### [facility] [address] [place], [address] Nucleated RBC (Bld) [#/Vol] 0 10*3/uL Normal 0-5 [facility] Comment on above: Order Comment: Order Date: 02/05/25Order Info: 0184- - CBCD Performed By: #### L 400.7600 #### [facility] [address] [place], [address] Platelet mean volume (Bld) [Entitic vol] 9.2 fL Normal 6.2-12.0 [facility] Comment on above: Order Comment: Order Date: 02/05/25Order Info: 018-1 - CBCD Performed By: #### L 400.7600 #### [facility] [address] [place], [address] Platelets (Bld) [#/Vol] 382 10*3/uL Normal 150-450 [facility] Comment on above: Order Comment: Order Date: 02/05/25Order Info: 0184-1 - CBCD Performed By: #### L 400.7600 #### [facility] [address] [place], [address] RBC (Bld) [#/Vol] 4.31 10*6/uL Normal 4.2-5.4 [facility] Comment on above: Order Comment: Order Date: 02/05/25Order Info: 183-08 - CBCD Performed By: #### L 400.7600 #### [facility] [address] [place], [place], [address] RDW SD 40.4 fl Normal 35.1-43.9 [facility] Comment on above: Order Comment: Order Date: 02/05/25Order Info: 183-08 - CBCD Performed By: #### L 400.7600 #### [facility] [address] [place], [address] WBC (Bld) [#/Vol] 11.0 10*3/uL Normal 4.4-11.0 [facility] Comment on above: Order Comment: Order Date: 02/05/25Order Info: [id number] - CBCD Performed By: #### L 400.7600 #### [facility] [address] [place], [address] Calculated very low density lipoprotein (VLDL) cholesterol measurementOrdered By: Ortega Medrano on 02-05-2025 Calculated very low density lipoprotein (VLDL) cholesterol measurement 59 mg/dL High 5-40 [facility] Carbon dioxide, total [Moles /volume] in Central venous bloodOrdered By: Ortega Medrano on 02-05-2025 CO2 [Moles/Vol] 21.7 mmol/L 21.0-32.0 [facility] Chloride assayOrdered By: Lidia Medrano on 02-05-2025 Chloride [Moles/Vol] 105 mmol/L 98-108 [facility] Comprehensive Metabolic Prof ilon 02-05-2025 Albumin [Mass/Vol] 4.2 g/dL Normal 3.5-5.0 [facility] Comment on above: Order Comment: Order Date: 02/05/25Order Info: [id number] - CMPOrder Info: [id number] - LIPIDOrder Info: [id number] - TSHOrder Info: [id number] - T4F Performed By: #### L 400.7600 #### [facility] [address] [place], [address] Albumin/Globulin [Mass ratio] 1.4 {ratio} Normal 0.9-2.4 [facility] Comment on above: Order Comment: Order Date: 02/05/25Order Info: [id number] - CMPOrder Info: [id number] - LIPIDOrder Info: [id number] - TSHOrder Info: [id number] - T4F Performed By: #### L 400.7600 #### [facility] [address] [place], [address] ALK PHOS 62 U/L Normal 35-104 [facility] Comment on above: Order Comment: Order Date: 02/05/25Order Info: [id number] - CMPOrder Info: [id number] - LIPIDOrder Info: [id number] - TSHOrder Info: [id number] - T4F Performed By: #### L 400.7600 #### [facility] [address] [place], [address] ALT [Catalytic activity/Vol] 12 U/L Normal <=34 [facility] Comment on above: Order Comment: Order Date: 02/05/25Order Info: [id number] - CMPOrder Info: [id number] - LIPIDOrder Info: [id number] - TSHOrder Info: [id number] - T4F Performed By: #### L 400.7600 #### [facility] [address] [place], [address] AST [Catalytic activity/Vol] 16 U/L Normal <=31 [facility] Comment on above: Order Comment: Order Date: 02/05/25Order Info: [id number] - CMPOrder Info: [id number] - LIPIDOrder Info: [id number] - TSHOrder Info: [id number] - T4F Performed By: #### L 400.7600 #### [facility] [address] [place], [address] Bilirubin [Mass/Vol] 0.31 mg/dL Normal 0.00-1.30 [facility] Comment on above: Order Comment: Order Date: 02/05/25Order Info: [id number] - CMPOrder Info: [id number] - LIPIDOrder Info: [id number] - TSHOrder Info: [id number] - T4F Performed By: #### L 400.7600 #### [facility] [address] [place], [address] BUN/CRE 9.1 RATIO Low 10-20 [facility] Comment on above: Order Comment: Order Date: 02/05/25Order Info: [id number] - CMPOrder Info: [id number] - LIPIDOrder Info: [id number] - TSHOrder Info: [id number] - T4F Performed By: #### L 400.7600 #### [facility] [address] [place], [address] Calcium [Mass/Vol] 9.6 mg/dL Normal 7.6-11.0 [facility] Comment on above: Order Comment: Order Date: 02/05/25Order Info: [id number] - CMPOrder Info: [id number] - LIPIDOrder Info: [id number] - TSHOrder Info: [id number] - T4F Performed By: #### L 400.7600 #### [facility] [address] [place], [address] Chloride [Moles/Vol] 105 mmol/L Normal 98-108 [facility] Comment on above: Order Comment: Order Date: 02/05/25Order Info: [id number] - CMPOrder Info: [id number] - LIPIDOrder Info: [id number] - TSHOrder Info: [id number] - T4F Performed By: #### L 400.7600 #### [facility] [address] [place], [address] CO2 [Moles/Vol] 21.7 mmol/L Normal 21.0-32.0 [facility] Comment on above: Order Comment: Order Date: 02/05/25Order Info: [id number] - CMPOrder Info: [id number] - LIPIDOrder Info: [id number] - TSHOrder Info: [id number] - T4F Performed By: #### L 400.7600 #### [facility] [address] [place], [address] Creatinine [Mass/Vol] 0.82 mg/dL Normal 0.70-1.[address] [facility] Comment on above: Order Comment: Order Date: 02/05/25Order Info: [id number] - CMPOrder Info: [id number] - LIPIDOrder Info: [id number] - TSHOrder Info: [id number] - T4F Performed By: #### L 400.7600 #### [facility] [address] [place], [address] GAP 12 Normal 5-15 [facility] Comment on above: Order Comment: Order Date: 02/05/25Order Info: [id number] - CMPOrder Info: [id number] - LIPIDOrder Info: [id number] - TSHOrder Info: [id number] - T4F Performed By: #### L 400.7600 #### [facility] [address] [place], [address] GFR/1.73 sq M.predicted among non-blacks MDRD (S/P/Bld) [Vol rate/Area] 94 mL/min/{1.73_m2} Normal >60 [facility] Comment on above: Order Comment: Order Date: 02/05/25Order Info: [id number] - CMPOrder Info: [id number] - LIPIDOrder Info: [id number] - TSHOrder Info: [id number] - T4F Result Comment: mL/m in/1.73m2 CKD-EPI Creatinine Equation (2020) Performed By: #### L 400.7600 #### [facility] [address] [place], [address] Globulin (S) [Mass/Vol] 2.9 g/dL Normal 2.2-4.2 [facility] Comment on above: Order Comment: Order Date: 02/05/25Order Info: [id number] - CMPOrder Info: [id number] - LIPIDOrder Info: [id number] - TSHOrder Info: [id number] - T4F Performed By: #### L 400.7600 #### [facility] [address] [place], [address] Glucose [Mass/Vol] 93 mg/dL Normal 70-99 [facility] Comment on above: Order Comment: Order Date: 02/05/25Order Info: [id number] - CMPOrder Info: [id number] - LIPIDOrder Info: [id number] - TSHOrder Info: [id number] - T4F Performed By: #### L 400.7600 #### [facility] [address] [place], [address] Potassium [Moles/Vol] 4.1 mmol/L Normal 3.3-5.[address] [facility] Comment on above: Order Comment: Order Date: 02/05/25Order Info: [id number] - CMPOrder Info: [id number] - LIPIDOrder Info: [id number] - TSHOrder Info: [id number] - T4F Performed By: #### L 400.7600 #### [facility] [address] [place], [address] Sodium [Moles/Vol] 138 mmol/L Normal 133-145 [facility] Comment on above: Order Comment: Order Date: 02/05/25Order Info: [id number] - CMPOrder Info: [id number] - LIPIDOrder Info: [id number] - TSHOrder Info: [id number] - T4F Performed By: #### L 400.7600 #### [facility] [address] [place], [address] T PROT 7.2 g/dL Normal 5.9-8.4 [facility] Comment on above: Order Comment: Order Date: 02/05/25Order Info: [id number] - CMPOrder Info: [id number] - LIPIDOrder Info: [id number] - TSHOrder Info: [id number] - T4F Performed By: #### L 400.7600 #### [facility] [address] [place], [place], [address] Urea nitrogen [Mass/Vol] 7 mg/dL Normal 4-19 [facility] Comment on above: Order Comment: Order Date: 02/05/25Order Info: [id number] - CMPOrder Info: [id number] - LIPIDOrder Info: [id number] - TSHOrder Info: [id number] - T4F Performed By: #### L 400.7600 #### [facility] [address] [place], [place], [address] Eosinophil percentageOrdered By: Ortega Medrano on 02-05-2025 Eosinophils/100 WBC (Bld) 0.8 % 0-5 [facility] Erythrocyte distribution wid th ratioOrdered By: Ortega Medrano on 02-05-2025 Erythrocyte distribution width (RBC) [Ratio] 11.9 % 11.6-14.6 [facility] Erythrocyte distribution wid th standard deviationOrdered By: Ortega Medrano on 02-05-2025 Erythrocyte distribution width (RBC) [Ratio] 40.4 fl 35.1-43.9 [facility] Glomerular filtration rate ( GFR) estimation/1.73 sq m using serum, plasma, or whole bOrdered By: Ortega Medrano on 02-05-2025 GFR/1.73 sq M.predicted among non-blacks MDRD (S/P/Bld) [Vol rate/Area] 94 mL/min/{1.73_m2} >60 [facility] Comment on above: mL/min/1.73m2 CKD-EP I Creatinine Equation (2020) Hematocrit Auto (Bld) [Volum e fraction]Ordered By: Ortega Medrano on 02-05-2025 Hematocrit (Bld) [Volume fraction] 39.8 % 37-47 [facility] Hemoglobin measurementOrdere d By: Ortega Medrano on 02-05-2025 Hemoglobin (Bld) [Mass/Vol] 13.0 g/dL 12.0-15.0 [facility] Immature granulocytes/100 WB C Auto (Bld)Ordered By: Ortega Medrano on 02-05-2025 Immature granulocytes/100 WBC (Bld) 0.400 % 0.0-0.9 [facility] Comment on above: IG% - Immature Granu locytes (promyelocytes, myelocytes and metamyelocytes) > 1% indicates that a LEFT SHIFT is Present. LDL calc ser/plasOrdered By: Ortega Medrano on 02-05-2025 Cholesterol in LDL [Mass/Vol] 111 mg/dL [facility] Comment on above: Zrqdxafckm=071-673 m g/dL & Higher Qixa=506 mg/dL or greater Laboratory - Chemistry and C hemistry - challengeOrdered By: Ortega Medrano on 02-05-2025 AST [Catalytic activity/Vol] 16 U/L <32 [facility] Lipid Profileon 02-05-2025 CHOL:HDL 4.76 Normal [facility] Comment on above: Order Comment: Order Date: 02/05/25Order Info: [id number] - CMPOrder Info: [id number] - LIPIDOrder Info: [id number] - TSHOrder Info: [id number] - T4F Performed By: #### L 3400.8000 #### [facility] [address] [place], [address] Cholesterol [Mass/Vol] 215 mg/dL High <=200 [facility] Comment on above: Order Comment: Order Date: 02/05/25Order Info: [id number] - CMPOrder Info: [id number] - LIPIDOrder Info: [id number] - TSHOrder Info: [id number] - T4F Result Comment: Chol esterol level, Desirable <200 mg/dL Borderline high cholesterol 200-239 mg/dL High cholesterol >=240 mg/dL Recommendations of the NCEP Adult Treatment Panel for the following risk-cutoff thresholds for the [place] population. Performed By: #### L 3400.8000 #### [facility] [address] [place], [address] Cholesterol in HDL [Mass/Vol] 45 mg/dL Normal [facility] Comment on above: Order Comment: Order Date: 02/05/25Order Info: [id number] - CMPOrder Info: [id number] - LIPIDOrder Info: [id number] - TSHOrder Info: 7 - T4F Result Comment: Liyah onal Cholesterol Education Program (NCEP) guidelines: <40 mg/dL: Low HDL-cholesterol (major risk factor for CHD) >= 60 mg/dL: High HDL-cholesterol (negative risk factor for CHD) HDL-cholesterol is affected by a number of factors, e.g. smoking, exercise, hormones, sex and age. Performed By: #### L 3400.8000 #### [facility] [address] [place], [address] Cholesterol in LDL [Mass/Vol] 111 mg/dL Normal [facility] Comment on above: Order Comment: Order Date: 02/05/25Order Info: [id number] - CMPOrder Info: [id number] - LIPIDOrder Info: 63 - TSHOrder Info: 7 - T4F Result Comment: Bord hypeat=993-580 mg/dL Higher Ckdd=571 mg/dL or greater Performed By: #### L 3400.8000 #### [facility] [address] [place], [address] Cholesterol in VLDL [Mass/Vol] 59 mg/dL High 5-40 [facility] Comment on above: Order Comment: Order Date: 02/05/25Order Info: [id number] - CMPOrder Info: [id number] - LIPIDOrder Info: 63 - TSHOrder Info: 7 - T4F Performed By: #### L 3400.8000 #### [facility] [address] [place], [address] Triglyceride [Mass/Vol] 293 mg/dL High [facility] Comment on above: Order Comment: Order Date: 02/05/25Order Info: [id number] - CMPOrder Info: [id number] - LIPIDOrder Info: 63 - TSHOrder Info: [id number] - T4F Result Comment: The drugs N-Acetylcysteine and Metamizole may falsely depress this assay. Normal range: <150 mg/dL Borderline High: 150-199 mg/dL High: 200-499 mg/dL Very High: >500 mg/dL Performed By: #### L 3400.8000 #### [facility] [place], [address] MCV (mean corpuscular volume ) determinationOrdered By: Ortega Medrano on 02-05-2025 MCV (RBC) [Entitic vol] 92.3 fL 81-99 [facility] Mean corpuscular hemoglobin (MCH) determinationOrdered By: Ortega Medrano on 02-05-2025 MCH (RBC) [Entitic mass] 30.2 pg 27.0-32.0 [facility] Mean corpuscular hemoglobin concentration (MCHC) determinationOrdered By: Ortega Medrano on 02-05-2025 MCHC (RBC) [Mass/Vol] 32.7 g/dL 32-[address] [facility] Mean platelet volume determi nationOrdered By: Ortega Medrano on 02-05-2025 Platelet mean volume (Bld) [Entitic vol] 9.2 fL 6.2-12.0 [facility] Monocyte percentageOrdered B y: Ortega Medrano on 02-05-2025 Monocytes/100 WBC (Bld) 5.7 % 0-10 [facility] Neutrophil percentageOrdered By: Ortega Medrano on 02-05-2025 Neutrophils/100 WBC (Bld) 63.3 % 47-70 [facility] Nucleated red blood cell per centageOrdered By: Ortega Medrano on 02-05-2025 Nucleated RBC/100 WBC (Bld) [Ratio] 0 % 0-5 [facility] Platelet countOrdered By: Lidia Medrano on 02-05-2025 Platelets (Bld) [#/Vol] 382 10*3/uL 150-450 [facility] Potassium measurement (mass/ volume)Ordered By: Ortega Medrano on 02-05-2025 Potassium (Unsp spec) [Mass/Vol] 4.1 mmol/L 3.3-5.1 [facility] RBC Auto (Bld) [#/Vol]Ordere d By: Ortega Medrano on 02-05-2025 RBC (Bld) [#/Vol] 4.31 10*6/uL 4.2-5.4 [facility] Screening total cholesterol/ high density lipoprotein (HDL) cholesterol ratioOrdered By: Ortega Medrano on 02-05-2025 Cholesterol.total/Cho lesterol in HDL [Mass ratio] 4.76 {ratio} [facility] Serum creatinine measurement (mass/volume)Ordered By: Ortega Medrano on 02-05-2025 Creatinine [Mass/Vol] 0.82 mg/dL 0.70-1.[address] [facility] Serum globulin measurementOr dered By: Ortega Medrano on 02-05-2025 Globulin (S) [Mass/Vol] 2.9 g/dL 2.2-4.2 [facility] Serum glucose measurement (m ass/volume)Ordered By: Ortega Medrano on 02-05-2025 Glucose [Mass/Vol] 93 mg/dL 70-99 [facility] Serum or plasma alanine gorman otransferase (ALT) measurementOrdered By: Ortega Medrano on 02-05-2025 ALT [Catalytic activity/Vol] 12 U/L <35 [facility] Serum or plasma albumin harry urement (mass/volume)Ordered By: Ortega Medrano on 02-05-2025 Albumin [Mass/Vol] 4.2 g/dL 3.5-5.0 [facility] Serum or plasma albumin/glob ulin mass ratioOrdered By: Ortega Medrano on 02-05-2025 Albumin/Globulin [Mass ratio] 1.4 {ratio} 0.9-2.4 [facility] Serum or plasma alkaline domi sphatase measurementOrdered By: Ortega Medrano on 02-05-2025 ALP [Catalytic activity/Vol] 62 U/L 35-104 [facility] Serum or plasma calcium harry urement (mass/volume)Ordered By: Ortega Medrano on 02-05-2025 Calcium [Mass/Vol] 9.6 mg/dL 7.6-11.0 [facility] Serum or plasma cholesterol in HDL measurement (mass/volume)Ordered By: Ortega Medrano on 02-05-2025 Cholesterol in HDL [Mass/Vol] 45 mg/dL >40 [facility] Comment on above: National Cholesterol Education Program (NCEP) guidelines:<40 mg/dL: Low HDL-cholesterol (major risk factor for CHD)>= 60 mg/dL: High HDL-cholesterol (negative risk factor for CHD)HDL-cholesterol is affected by a number of factors, e.g. smoking, exercise, hormones, sex and age. Serum or plasma cholesterol measurement (mass/volume)Ordered By: Ortega Medrano on 02-05-2025 Cholesterol [Mass/Vol] 215 mg/dL High <201 [facility] Comment on above: Cholesterol level, D esirable <200 mg/dLBorderline high cholesterol 200-239 mg/dLHigh cholesterol >=240 mg/dLRecommendations of the NCEP Adult Treatment Panel for the following risk-cutoff thresholds for the [place] population. Serum or plasma thyroperoxid ase antibody assay (units/volume)Ordered By: Ortega Medrano on 02-05-2025 TPO Ab Qn [IU]/mL 0-34 [facility] Comment on above: Performed at: [address] [id number] Director: Kartik Cano MD, Phone: [phone] at: [facility] [id number] Director: Rodrigo Edmondson PhD, Phone: [phone] Serum or plasma urea nitroge n measurement (mass/volume)Ordered By: Ortega Medrano on 02-05-2025 Urea nitrogen [Mass/Vol] 7 mg/dL 4-19 [facility] Sodium levelOrdered By: Ortega Medrano on 02-05-2025 Sodium [Moles/Vol] 138 mmol/L 133-145 [facility] T4 Free Directon 02-05-2025 T4 FREE DIRECT 1.00 ng/dL Normal 0.76-1.46 [facility] Comment on above: Order Comment: Order Date: 02/05/25Order Info: [id number] - CMPOrder Info: [id number] - LIPIDOrder Info: [id number] - TSHOrder Info: [id number] - T4F Performed By: #### L 400.7600 #### [facility] [place], [address] T4 freeOrdered By: Ortega doran on 02-05-2025 Free T4 [Mass/Vol] 1.00 ng/dL 0.76-1.46 [facility] TSH DL <= 0.005 mIU/L QnOrde red By: Ortega Medrano on 02-05-2025 TSH Qn 1.840 uIU/mL 0.300-4.20 0 [facility] Thyroid Stim Hormone (TSH)on 02-05-2025 TSH 1.840 uIU/mL Normal 0.300-4.20 0 [facility] Comment on above: Order Comment: Order Date: 02/05/25Order Info: [id number] CMPOrder Info: [id number] - LIPIDOrder Info: [id number] - TSHOrder Info: [id number] - T4F Performed By: #### L 400.7600 #### [facility] [address] [place], [address] Thyroid stimulating immunogl obulins detectionOrdered By: Ortega Medrano on 02-05-2025 Thyroid stimulating immunoglobulins Ql (S) <0.10 IU/L 0.00-0.55 [facility] Total proteinOrdered By: Jose Medrano on 02-05-2025 Protein [Mass/Vol] 7.2 g/dL 5.9-8.4 [facility] Triglycerides measurementOrd ered By: Ortega Medrano on 02-05-2025 Triglyceride [Mass/Vol] 293 mg/dL High <199 [facility] Comment on above: The drugs N-Acetylcy steine and Metamizole may falsely depress this assay. Normal range: <150 mg/dLBorderline High: 150-199 mg/dLHigh: 200-499 mg/dLVery High: >500 mg/dL Vitamin B12on 02-05-2025 Cobalamin (Vitamin B12) [Mass/Vol] 356 pg/mL Normal 180-914 [facility] Comment on above: Order Comment: Order Date: 02/05/25 Order Info: [id number] - CMP Order Info: [id number] - LIPID Order Info: [id number] - TSH Order Info: [id number] - T4F Performed By: #### L 3300.6900, L503.0106, L3300.6820, L506.1001 #### [facility] [address] [place], [place], [address] Vitamin B12 ser/plasOrdered By: Ortega Medrano on 02-05-2025 Cobalamin (Vitamin B12) [Mass/Vol] 356 pg/mL 180-914 [facility] Vitamin D,25 Hydroxyon 02-05 Vitamin D 25-OH 35.6 ng/mL Normal 30-100 [facility] Comment on above: Order Comment: Order Date: 02/05/25 Order Info: [id number] - CMP Order Info: [id number] - LIPID Order Info: [id number] - TSH Order Info: [id number] - T4F Result Comment: [place] min D Status Deficiency: <20 ng/mL (50nmol/L) Insufficiency: 20-30 ng/mL (50-75 nmol/L) Sufficiency: 30-100 ng/mL (75-250 nmol/L) Toxicity: >100 ng/mL (>250 nmol/L) Performed By: #### L 3300.6900, L503.0106, L3300.6820, L506.1001 #### [facility] [address] [place], [address] White blood cell (WBC) count Ordered By: Ortega Medrano on 02-05-2025 WBC (Bld) [#/Vol] 11.0 10*3/uL 4.4-11.0 [facility] Absolute lymphocyte countOrd ered By: HEALTH ASSESSMENT on 11-15-2024 Lymphocytes Auto (Unsp spec) [#/Vol] 2.85 10*3/uL 0.83-4.51 [facility] Absolute neutrophil countOrd ered By: HEALTH ASSESSMENT on 11-15-2024 Neutrophils (Bld) [#/Vol] 5.7 10*3/uL 2.0-7.7 [facility] Absolute nucleated red blood cell countOrdered By: HEALTH ASSESSMENT on 11-15-2024 Nucleated RBC (Bld) [#/Vol] 0.00 10*3/uL 0-5 [facility] Anion gap in Serum or Plasma Ordered By: HEALTH ASSESSMENT on 11-15-2024 Anion gap [Moles/Vol] 9 mmol/L 5-[address] [facility] BUN/creatinine ratioOrdered By: HEALTH ASSESSMENT on 11-15-2024 Urea nitrogen/Creatinine [Mass ratio] 14.5 mg/mg 10-20 [facility] Bilirubin directOrdered By: HEALTH ASSESSMENT on 11-15-2024 Bilirubin.direct [Mass/Vol] 0.14 mg/dL 0.00-0.30 [facility] Bilirubin, totalOrdered By: HEALTH ASSESSMENT on 11-15-2024 Bilirubin [Mass/Vol] 0.37 mg/dL 0.00-1.30 [facility] Blood band neutrophil count as percentage of total leukocytesOrdered By: HEALTH ASSESSMENT on 11-15-2024 Band form neutrophils/100 WBC (Bld) 61.9 % 47-70 [facility] CBC, Employeeon 11-15-2024 Absolute Lymph 2.85 X10 3/uL Normal 0.83-4.51 [facility] Comment on above: Performed By: #### L 400.7600 #### [facility] [address] [place], [address] Absolute Neut 5.7 X10 3/uL Normal 2.0-7.7 [facility] Comment on above: Performed By: #### L 400.7600 #### [facility] [address] [place], [address] Basophils/100 WBC (Bld) 0.8 % Normal 0-1 [facility] Comment on above: Performed By: #### L 400.7600 #### [facility] [address] [place], [address] Eosinophils/100 WBC (Bld) 1.4 % Normal 0-5 [facility] Comment on above: Performed By: #### L 400.7600 #### [facility] [address] [place], [address] Erythrocyte distribution width (RBC) [Ratio] 12.1 % Normal 11.6-14.6 [facility] Comment on above: Performed By: #### L 400.7600 #### [facility] [address] [place], [address] Hematocrit (Bld) [Volume fraction] 39.9 % Normal 37-47 [facility] Comment on above: Performed By: #### L 400.7600 #### [facility] [address] [place], [address] Hemoglobin (Bld) [Mass/Vol] 13.2 g/dL Normal 12.0-15.0 [facility] Comment on above: Performed By: #### L 400.7600 #### [facility] [address] [place], [address] Lymphocytes/100 WBC (Bld) 30.9 % Normal 19-41 [facility] Comment on above: Performed By: #### L 400.7600 #### [facility] [address] [place], [address] MCH (RBC) [Entitic mass] 30.6 pg Normal 27.0-32.0 [facility] Comment on above: Performed By: #### L 400.7600 #### [facility] [address] [place], [address] MCHC (RBC) [Mass/Vol] 33.1 g/dL Normal 32-[address] [facility] Comment on above: Performed By: #### L 400.7600 #### [facility] [address] [place], [address] MCV (RBC) [Entitic vol] 92.4 fL Normal 81-99 [facility] Comment on above: Performed By: #### L 400.7600 #### [facility] [address] [place], [address] Monocytes/100 WBC (Bld) 4.7 % Normal 0-10 [facility] Comment on above: Performed By: #### L 400.7600 #### [facility] [address] [place], [address] Neutrophils/100 WBC (Bld) 61.9 % Normal 47-70 [facility] Comment on above: Performed By: #### L 400.7600 #### [facility] [address] [place], [address] NRBC # 0.00 10 3/uL Normal 0-5 [facility] Comment on above: Performed By: #### L 400.7600 #### [facility] [address] [place], [address] Nucleated RBC (Bld) [#/Vol] 0 10*3/uL Normal 0-5 [facility] Comment on above: Performed By: #### L 400.7600 #### [facility] [address] [place], [address] Platelet mean volume (Bld) [Entitic vol] 8.8 fL Normal 6.2-12.0 [facility] Comment on above: Performed By: #### L 400.7600 #### [facility] [address] [place], [address] Platelets (Bld) [#/Vol] 354 10*3/uL Normal 150-450 [facility] Comment on above: Performed By: #### L 400.7600 #### [facility] [address] [place], [address] RBC (Bld) [#/Vol] 4.32 10*6/uL Normal 4.2-5.4 [facility] Comment on above: Performed By: #### L 400.7600 #### [facility] [address] [place], [address] RDW SD 41.0 fl Normal 35.1-43.9 [facility] Comment on above: Performed By: #### L 400.7600 #### [facility] [address] [place], [place], [address] WBC (Bld) [#/Vol] 9.2 10*3/uL Normal 4.4-11.0 [facility] Comment on above: Performed By: #### L 400.7600 #### [facility] [address] [place], [place], [id number] Calculated very low density lipoprotein (VLDL) cholesterol measurementOrdered By: HEALTH ASSESSMENT on 11-15-2024 Calculated very low density lipoprotein (VLDL) cholesterol measurement 41 mg/dL High 5-40 [facility] Carbon dioxide, total [Moles /volume] in Central venous bloodOrdered By: HEALTH ASSESSMENT on 11-15-2024 CO2 [Moles/Vol] 23.0 mmol/L 21.0-32.0 [facility] Chloride assayOrdered By: HE ALTH ASSESSMENT on 11-15-2024 Chloride [Moles/Vol] 106 mmol/L 98-108 [facility] Employee Profileon Cholesterol in LDL [Mass/Vol] 133 mg/dL High 0-130 [facility] Comment on above: Performed By: #### L 400.7600 #### [facility] [address] [facility] [place], [place], [id number] Erythrocyte distribution wid th ratioOrdered By: HEALTH ASSESSMENT on 11-15-2024 Erythrocyte distribution width (RBC) [Ratio] 12.1 % 11.6-14.6 [facility] Erythrocyte distribution wid th standard deviationOrdered By: HEALTH ASSESSMENT on 11-15-2024 Erythrocyte distribution width (RBC) [Ratio] 41.0 fl 35.1-43.9 [facility] Glomerular filtration rate ( GFR) estimation/1.73 sq m using serum, plasma, or whole bOrdered By: HEALTH ASSESSMENT on 11-15-2024 GFR/1.73 sq M.predicted among non-blacks MDRD (S/P/Bld) [Vol rate/Area] 95 mL/min/{1.73_m2} >60 [facility] Comment on above: mL/min/1.73m2 CKD-EP I Creatinine Equation (2020) Hematocrit Auto (Bld) [Volum e fraction]Ordered By: HEALTH ASSESSMENT on 11-15-2024 Hematocrit (Bld) [Volume fraction] 39.9 % 37-47 [facility] Hemoglobin measurementOrdere d By: HEALTH ASSESSMENT on 11-15-2024 Hemoglobin (Bld) [Mass/Vol] 13.2 g/dL 12.0-15.0 [facility] - Chemistry and C hemistry - challengeOrdered By: HEALTH ASSESSMENT on 11-15-2024 AST [Catalytic activity/Vol] 12 U/L <32 [facility] Lactate dehydrogenase (LDH) measurementOrdered By: HEALTH ASSESSMENT on 11-15-2024 LDH [Catalytic activity/Vol] 168 U/L 84-246 [facility] Low density lipoprotein (LDL ) cholesterol measurementOrdered By: HEALTH ASSESSMENT on 11-15-2024 Cholesterol in LDL [Mass/Vol] 133 mg/dL High 0-130 [facility] MCV (mean corpuscular volume ) determinationOrdered By: HEALTH ASSESSMENT on 11-15-2024 MCV (RBC) [Entitic vol] 92.4 fL 81-99 [facility] Mean corpuscular hemoglobin (MCH) determinationOrdered By: HEALTH ASSESSMENT on 11-15-2024 MCH (RBC) [Entitic mass] 30.6 pg 27.0-32.0 [facility] Mean corpuscular hemoglobin concentration (MCHC) determinationOrdered By: HEALTH ASSESSMENT on 11-15-2024 MCHC (RBC) [Mass/Vol] 33.1 g/dL 32-[address] [facility] Mean platelet volume determi nationOrdered By: HEALTH ASSESSMENT on 11-15-2024 Platelet mean volume (Bld) [Entitic vol] 8.8 fL 6.2-12.0 [facility] Nucleated red blood cell per centageOrdered By: HEALTH ASSESSMENT on 11-15-2024 Nucleated RBC/100 WBC (Bld) [Ratio] 0 % 0-5 [facility] Platelet countOrdered By: HE ALTH ASSESSMENT on 11-15-2024 Platelets (Bld) [#/Vol] 354 10*3/uL 150-450 [facility] Potassium measurement (mass/ volume)Ordered By: HEALTH ASSESSMENT on 11-15-2024 Potassium (Unsp spec) [Mass/Vol] 4.3 mmol/L 3.3-5.1 [facility] RBC Auto (Bld) [#/Vol]Ordere d By: HEALTH ASSESSMENT on 11-15-2024 RBC (Bld) [#/Vol] 4.32 10*6/uL 4.2-5.4 [facility] Screening total cholesterol/ high density lipoprotein (HDL) cholesterol ratioOrdered By: HEALTH ASSESSMENT on 11-15-2024 Cholesterol.total/Cho lesterol in HDL [Mass ratio] 4.65 {ratio} [facility] Serum creatinine measurement (mass/volume)Ordered By: HEALTH ASSESSMENT on 11-15-2024 Creatinine [Mass/Vol] 0.82 mg/dL 0.70-1.[address] [facility] Serum globulin measurementOr dered By: HEALTH ASSESSMENT on 11-15-2024 Globulin (S) [Mass/Vol] 2.9 g/dL 2.2-4.2 [facility] Serum glucose measurement (m ass/volume)Ordered By: HEALTH ASSESSMENT on 11-15-2024 Glucose [Mass/Vol] 98 mg/dL 70-99 [facility] Serum or plasma alanine gorman otransferase (ALT) measurementOrdered By: HEALTH ASSESSMENT on 11-15-2024 ALT [Catalytic activity/Vol] 8 U/L <35 [facility] Serum or plasma albumin harry urement (mass/volume)Ordered By: HEALTH ASSESSMENT on 11-15-2024 Albumin [Mass/Vol] 4.0 g/dL 3.5-5.0 [facility] Serum or plasma albumin/glob ulin mass ratioOrdered By: HEALTH ASSESSMENT on 11-15-2024 Albumin/Globulin [Mass ratio] 1.4 {ratio} 0.9-2.4 [facility] Serum or plasma alkaline domi sphatase measurementOrdered By: HEALTH ASSESSMENT on 11-15-2024 ALP [Catalytic activity/Vol] 58 U/L 35-104 [facility] Serum or plasma calcium harry urement (mass/volume)Ordered By: HEALTH ASSESSMENT on 11-15-2024 Calcium [Mass/Vol] 9.0 mg/dL 7.6-11.0 [facility] Serum or plasma cholesterol in HDL measurement (mass/volume)Ordered By: HEALTH ASSESSMENT on 11-15-2024 Cholesterol in HDL [Mass/Vol] 48 mg/dL >40 [facility] Comment on above: National Cholesterol Education Program (NCEP) guidelines:<40 mg/dL: Low HDL-cholesterol (major risk factor for CHD)>= 60 mg/dL: High HDL-cholesterol (negative risk factor for CHD)HDL-cholesterol is affected by a number of factors, e.g. smoking, exercise, hormones, sex and age. Serum or plasma cholesterol measurement (mass/volume)Ordered By: HEALTH ASSESSMENT on 11-15-2024 Cholesterol [Mass/Vol] 222 mg/dL High <201 [facility] Comment on above: Cholesterol level, D esirable <200 mg/dLBorderline high cholesterol 200-239 mg/dLHigh cholesterol >=240 mg/dLRecommendations of the NCEP Adult Treatment Panel for the following risk-cutoff thresholds for the [place] population. Serum or plasma urea nitroge n measurement (mass/volume)Ordered By: HEALTH ASSESSMENT on 11-15-2024 Urea nitrogen [Mass/Vol] 12 mg/dL 4-19 [facility] Serum or plasma uric acid me asurement (mass/volume)Ordered By: [facility] ASSESSMENT on 11-15-2024 Urate [Mass/Vol] 3.9 mg/dL 2.6-6.0 [facility] Comment on above: The drugs N-Acetylcy steine and Metamizole may falsely depress this assay. Sodium levelOrdered By: [facility] ASSESSMENT on 11-15-2024 Sodium [Moles/Vol] 138 mmol/L 133-145 [facility] Total proteinOrdered By: [facility] ASSESSMENT on 11-15-2024 Protein [Mass/Vol] 6.9 g/dL 5.9-8.4 [facility] Triglycerides measurementOrd ered By: HEALTH ASSESSMENT on 11-15-2024 Triglyceride [Mass/Vol] 207 mg/dL High <199 [facility] Comment on above: The drugs N-Acetylcy steine and Metamizole may falsely depress this assay. Normal range: <150 mg/dLBorderline High: 150-199 mg/dLHigh: 200-499 mg/dLVery High: >500 mg/dL White blood cell (WBC) count Ordered By: HEALTH ASSESSMENT on 11-15-2024 WBC (Bld) [#/Vol] 9.2 10*3/uL 4.4-11.0 [facility] Quantiferon TB-Gold+on 10-30 QFT MITOGEN GERBER > 10.00 Normal . [facility] Comment on above: Order Comment: REDRA W Performed By: #### L 400.7600 #### [facility] [address] [place], [address] QFT NIL VALUE 0.08 IU/mL Normal . [facility] Comment on above: Order Comment: REDRA W Performed By: #### L 400.7600 #### [facility] [address] [place], [address] QFT TB GOLD+ Comment Normal . [facility] Comment on above: Order Comment: REDRA [...] test. Performed By: #### L 400.7600 #### [facility] [address] [place], [address] QFT TB POS CRIT Negative Normal Negative [facility] Comment on above: Order Comment: REDRA [...] interferon gamma. Chemiluminescence immunoassay methodology Performed at: [address] [id number] Truck Sales Manager: Rodrigo Edmondson PhD, Phone: [phone] Performed By: #### L 400.7600 #### [facility] [address] [place], [address] QFT TB1+ AG GERBER 0.16 IU/mL Normal . [facility] Comment on above: Order Comment: REDRA W Performed By: #### L 400.7600 #### [facility] [address] [place], [address] QFT TB2+ AG GERBER 0.18 IU/mL Normal . [facility] Comment on above: Order Comment: REDRA W Performed By: #### L 400.7600 #### [facility] [address] [place], [place], [facility] Qualitative QuantiFERON-TB g old in tube testOrdered By: HEALTH ASSESSMENT on 10-25-2024 M. tuberculosis tuberculin stim IFN-g Ql (Bld) 0.16 IU/mL . [facility] Quantiferon TB-Gold+on 10-23 QFT MITOGEN GERBER Normal [facility] Comment on above: Result Comment: left in incubator too long Performed By: #### L 3400.8000 #### [facility] [address] [place], [place], [facility] QFT NIL VALUE Normal [facility] Comment on above: Result Comment: left in incubator too long Performed By: #### L 3400.8000 #### [facility] [address] [place], [facility] QFT TB GOLD+ Normal [facility] Comment on above: Result Comment: left in incubator too long Performed By: #### L 3400.8000 #### [facility] [address] [place], [address] QFT TB POS CRIT Normal [facility] Comment on above: Result Comment: left in incubator too long Performed By: #### L 3400.8000 #### [facility] [address] [place], [address] QFT TB1+ AG GERBER Normal [facility] Comment on above: Result Comment: left in incubator too long Performed By: #### L 3400.8000 #### [facility] [address] [place], [address] QFT TB2+ AG GERBER Normal [facility] Comment on above: Result Comment: left in incubator too long Performed By: #### L 3400.8000 #### [facility] [address] [place], [address] PAP IG HPV APTIMA 16/18,45on 08-04-2024 ADEQ Comment Normal . [facility] Comment on above: Order Comment: Speci men Comment: [id number] Comment: No. of containers..01 ThinPrep Vial Result Comment: Sati sfactory for evaluation. Endocervical and/or squamous metaplastic cells (endocervical component) are present. Performed By: #### L 501.9520, L501.50661, L506.0400 #### [facility] [address] [place], [address] COMM . Normal . [facility] Comment on above: Order Comment: Speci deuce Comment: [id number] Comment: No. of containers..01 ThinPrep Vial Performed By: #### L 501.9520, L501.99793, L506.0400 #### [facility] [address] [place], [address] COMMENT Comment Normal . [facility] Comment on above: Order Comment: Speci men Comment: [id number] Comment: No. of containers..01 ThinPrep Vial Result Comment: This liquid based ThinPrep(R) pap test was screened with the use of an image guided system. Performed By: #### L 501.9520, L501.03605, L506.0400 #### [facility] [address] [place], [address] DIAG Comment Normal . [facility] Comment on above: Order Comment: Speci men Comment: [id number] Comment: No. of containers..01 ThinPrep Vial Result Comment: NEGA TIVE FOR INTRAEPITHELIAL LESION OR MALIGNANCY. Performed By: #### L 501.9520, L501.49097, L506.0400 #### [facility] [address] [place], [address] HPV APTIMA, HR Negative Normal Negative [facility] Comment on above: Order Comment: Speci men Comment: [id number] Comment: No. of containers..01 ThinPrep Vial Result Comment: This nucleic acid amplification test detects fourteen high- risk HPV types (16,18,31,33,35,39,45,51,52,56,58,59,66,68) without differentiation. Performed By: #### L 501.9520, L501.61103, L506.0400 #### [facility] [address] [place], [address] HPV Mi Rfx Comment Normal . [facility] Comment on above: Order Comment: Speci men Comment: [id number] Comment: No. of containers..01 ThinPrep Vial Result Comment: Crit eria not met, HPV Genotype not performed. Performed at: [facility] [address] [address] [place], [place] [id number] Truck Sales Manager: Jeovanny Slade MD, Phone: [phone] Performed at: - [address] [id number] Truck Sales Manager: Magalie Benítez MD, Phone: [phone] Performed at: = - [address] [id number] Truck Sales Manager: Magalie Benítez MD, Phone: [phone] Performed By: #### L 501.9520, L501.02336, L506.0400 #### [facility] [address] [place], [place], [address] PAPSMR Comment Normal . [facility] Comment on above: Order Comment: Speci men Comment: [id number] Comment: No. of containers..01 ThinPrep Vial Result Comment: The Pap smear is a screening test designed to aid in the detection of premalignant and malignant conditions of the uterine cervix. It is not a diagnostic procedure and should not be used as the sole means of detecting cervical cancer. Both false-positive and false-negative reports do occur. Performed By: #### L 501.9520, L501.26261, L506.0400 #### [facility] [address] [place], [place], [address] PERFORM Comment Normal . [facility] Comment on above: Order Comment: Speci men Comment: [id number] Comment: No. of containers..01 ThinPrep Vial Result Comment: Joslyn Tolentino, Edger Machine Setter (ASCP) Performed By: #### L 501.9520, L501.33636, L506.0400 #### [facility] [address] [place], [place], [id number] CNOVon 07-30-2024 CNOV Office Visit (UCTR ) HAMLET TEIXEIRA ([id number]) 1985 F [facility] Date Time Provider Department 07/30/24 3:15 PM YORDY ANDERSEN [facility] During your visit today, we recorded [...] Medications Discontinued During This Encounter Prescriptions - Wdozmqyw-Gd-Ftd-Fe-FA ( VITAMIN) tab (Discontinued) Reported on 07/30/2024 - fenugreek seed extract 500 mg cap (Discontinued) Reported on 07/30/2024 - Breast Pump mynor (Discontinued) Reported on 07/30/2024 - Breast Pump mynor (Discontinued) Reported on 07/30/2024 - OLIVEIRA'S YEAST ORAL (Discontinued) Reported on 07/30/2024 - Norethindrone, Contraceptive, (ORTHO MICRONOR) 0.35 mg tablet (Discontinued) Reported on 07/30/2024 Level of Service: OFFICE/OUTPATIENT [facility] 30 MINUTES [41449] Encounter Status:Closed by YORDY ANDERSEN on 07/30/24 [facility] 37on 07-29-2024 37 -Healed well. Normal [facility] Office Visiton 07-29-2024 Follow-up visit [id number] Hamlet Teixeira 1985 F Date Provider Department Center 07/29/2024 GÓMEZ DE LA CRUZ [facility] None Family History Family Status - Relation Status Age at Mother Alive Father Alive Brother Alive Daughter Alive Son Level of Service:[address]288 [place] POSTOP FOLLOW UP VISIT RELATED TO ORIGINAL PX Reason for Visit and Comments: Follow-up [004134] - follow up to perianal abscess drainage in office 07/07/24-antibiotic course. Other [0] - Pt unaccompanied Normal [facility] Progress Noteon 07-29-2024 Progress Note @ASSESSMENTBEGINPHAN [...] Review of Systems as recordedby the medical i d sales has been reviewed by me, and I [...] 07/29/2024 at 3:29 PM. 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 Normal [facility] Office Visiton 07-07-2024 Follow-up visit [id number] Hamlet Teixeira 1985 F Date Provider Department Center 07/07/2024 GÓMEZ DE LA CRUZ [facility] None Family History Family Status - Relation Status Age at Mother Alive Father Alive Brother Alive Daughter Alive Son Level of Service:01136 [place] OFFICE/OUTPT VISIT,PROCEDURE ONLY Reason for Visit and Comments: New Patient [542] - Evaluation for perianal abscess referring Dr. Guerra Other [0] - Pt unaccomapnied Normal [facility] Progress Noteon 07-07-2024 Progress Note @ASSESSMENTBEGINPHAN [...] Review of Systems as recordedby the medical i d sales has been reviewed by me, and I [...] 07/07/2024 at 2:51 PM. Normal [facility] Absolute lymphocyte countOrd ered By: Michell Woodard on 09-19-2023 Lymphocytes Auto (Unsp spec) [#/Vol] 2.61 10*3/uL 0.83-4.51 [facility] Automated lymphocyte count a s percentage of total leukocytesOrdered By: Michell Jamestings on 09-19-2023 Lymphocytes/100 WBC Auto (Unsp spec) 36.7 % 19-41 [facility] Basophil percentageOrdered B y: Michell Jamestings on 09-19-2023 Basophils/100 WBC (Bld) 1.0 % 0-1 [facility] Bilirubin [Mass/Vol] 0.50 mg/dL 0.20-1.00 [facility] Comment on above: For patients on eltr ombopag therapy, use of Dimension [place] TBIL is not recommended. Chloride [Moles/Vol] 113 mmol/L 98-107 [facility] Cholesterol [Mass/Vol] 210 mg/dL <200 [facility] Comment on above: <200 mg/dL Desirable 200-240 mg/dL Borderline >240 mg/dL High Risk Eosinophils/100 WBC (Bld) 3.4 % 0-5 [facility] Glucose [Mass/Vol] 104 mg/dL 74-106 [facility] Comment on above: Fasting Glucose resu lt from 100 to 125 mg/dL suggests IMPAIRED HOMEOSTASIS per A.D.A. criteria. Hemoglobin (Bld) [Mass/Vol] 12.6 g/dL 12.0-15.0 [facility] Monocytes/100 WBC (Bld) 6.3 % 0-10 [facility] Neutrophils (Bld) [#/Vol] 3.7 10*3/uL 2.0-7.7 [facility] Neutrophils/100 WBC (Bld) 52.3 % 47-70 [facility] Potassium [Moles/Vol] 3.9 mmol/L 3.5-5.[address] [facility] Protein [Mass/Vol] 7.3 g/dL 6.4-8.2 [facility] Sodium [Moles/Vol] 140 mmol/L 136-145 [facility] Triglyceride [Mass/Vol] 170 mg/dL <199 [facility] Comment on above: The drugs N-Acetylcy steine and Metamizole may falsely depress this assay.Serum Triglycerides Reference Interval Normal <150 mg/dL Borderline high 150 - 199 mg/dL High 200 - 499 mg/dL Very High > or = 500 mg/dL WBC (Bld) [#/Vol] 7.1 10*3/uL 4.4-11.0 [facility] Determination of erythrocyte mean corpuscular volume (MCV)Ordered By: Michell Woodard on 09-19-2023 MCV (RBC) [Entitic vol] 90.1 fL 81-99 [facility] Erythrocyte distribution wid th ratioOrdered By: Michell Woodard on 09-19-2023 Erythrocyte distribution width (RBC) [Ratio] 12.7 % 11.6-14.6 [facility] Erythrocyte distribution wid th standard deviationOrdered By: Michell Woodard on 09-19-2023 Erythrocyte distribution width (RBC) [Entitic vol] 41.9 fL 35.1-43.9 [facility] Hematocrit Auto (Bld) [Volum e fraction]Ordered By: Michell Woodard on 09-19-2023 Hematocrit (Bld) [Volume fraction] 39.2 % 37-47 [facility] High density lipoprotein (HD L) measurementOrdered By: Michell Woodard on 09-19-2023 Cholesterol in HDL (Body fld) [Mass/Vol] 41 mg/dL >40 [facility] Comment on above: The drugs N-Acetylcy steine and Metamizole may falsely depress this assay. Reference Range HDL <40 mg/dL Low HDL Cholesterol HDL >or= 60 mg/dL High HDL Cholesterol Immature granulocytes/100 WB C Auto (Bld)Ordered By: Michell Woodard on 09-19-2023 Immature granulocytes/100 WBC (Bld) 0.300 % 0.0-0.9 [facility] Comment on above: IG% - Immature Granu locytes (promyelocytes, myelocytes and metamyelocytes) > 1% indicates that a LEFT SHIFT is Present. Laboratory - Chemistry and C hemistry - challengeOrdered By: Michell Woodard on 09-19-2023 Albumin/Globulin [Mass ratio] 0.9 {ratio} 0.9-2.4 [facility] ALP [Catalytic activity/Vol] 68 U/L 45-117 [facility] ALT [Catalytic activity/Vol] 34 U/L 13-56 [facility] CO2 [Moles/Vol] 25.0 mmol/L 21.0-32.0 [facility] Globulin (S) [Mass/Vol] 3.9 g/dL 2.2-4.2 [facility] Urea nitrogen/Creatinine [Mass ratio] 12.3 mg/mg 10-20 [facility] Laboratory - Hematology and Cell countsOrdered By: Michell Woodard on 09-19-2023 MCH (RBC) [Entitic mass] 29.0 pg 27.0-32.0 [facility] MCHC (RBC) [Mass/Vol] 32.1 g/dL 32-[address] [facility] Nucleated RBC/100 WBC (Bld) [Ratio] 0 % 0-5 [facility] Platelets (Bld) [#/Vol] 304 10*3/uL 150-450 [facility] Low density lipoprotein (LDL ) cholesterol measurementOrdered By: Michell Woodard on 09-19-2023 Cholesterol in LDL (Body fld) [Moles/Vol] 135 mg/dL 0-130 [facility] No Panel InformationOrdered By: Michell Woodard on 09-19-2023 Vitamin D 25-Hydroxy 23.2 ng/mL [facility] Comment on above: Vitamin D 25(OH) Sta tus Range Deficiency <20 ng/mL (50nmol/L) Insufficiency 20 - 30 ng/mL (50 - 75 nmol/L) Sufficiency 30 - 100 ng/mL (75 - 250 nmol/L) Toxicity >100 ng/mL (>250 nmol/L) Estimated GFR (MDRD) Amer 102 mL/min >60 [facility] Comment on above: GFR Calc Estimated GFR (MDRD) Non-Af Amer 84 mL/min >60 [facility] Comment on above: Non- GFR Calc Platelet mean volume Rafael-Ec ker (Bld) [Entitic vol]Ordered By: Michell Woodard on 09-19-2023 Platelet mean volume (Bld) [Entitic vol] 8.6 fL 6.2-12.0 [facility] RBC Auto (Bld) [#/Vol]Ordere d By: Michell Woodard on 09-19-2023 RBC (Bld) [#/Vol] 4.35 10*6/uL 4.2-5.4 [facility] Serum or plasma calcium harry urement (mass/volume)Ordered By: Michell Woodard on 09-19-2023 Calcium [Mass/Vol] 9.0 mg/dL 8.5-10.1 [facility] Serum or plasma creatinine m easurement (mass/volume)Ordered By: Michell Woodard on 09-19-2023 Creatinine [Mass/Vol] 0.81 mg/dL 0.55-1.[address] [facility] Comment on above: The validity of the calculated GFR & GFRAA in patients over 70 years has not been determined. Clinical correlation is essential. Serum or plasma thyroid stim ulating hormone (TSH) measurement (units/volume)Ordered By: Michell Woodard on 09-19-2023 TSH Qn 1.55 uIU/mL 0.358-3.74 [facility] Serum or plasma thyroperoxid ase antibody assay (units/volume)Ordered By: Michell Woodard on 09-19-2023 TPO Ab Qn [IU]/mL 0-34 [facility] Comment on above: Performed at: [address] [id number] Director: Rodrigo Edmondson PhD, Phone: [phone] Serum or plasma urea nitroge n measurement (mass/volume)Ordered By: Michell Woodard on 09-19-2023 Urea nitrogen [Mass/Vol] 10 mg/dL 7-18 [facility] Thin prep Papanicolaou smear with manual screeningOrdered By: Michell Woodard on 01-24-2024 Thin prep Papanicolaou smear with manual screening 0.80 ng/dL 0.76-1.46 [facility] Thin prep Papanicolaou smear with manual screening 3.4 g/dL 3.2-5.0 [facility] Thin prep Papanicolaou smear with manual screening 20 U/L 15-37 [facility] Thin prep Papanicolaou smear with manual screening 2 5-15 [facility] Very low density lipoprotein (VLDL) cholesterol measurementOrdered By: Michell Woodard on 09-19-2023 Cholesterol in VLDL Calc [Moles/Vol] 34 mg/dL 5-40 [facility] Whole blood hemoglobin A1c/t otal hemoglobin ratio (mass fraction)Ordered By: Michell Woodard on 09-19-2023 HbA1c (Bld) [Mass fraction] 5.5 % 3.8-5.6 [facility] Comment on above: Normal < 5.7 % Predi abetic 5.7 - 6.4 % Diabetic >or= 6.5 % Please note range changes. CBCon 02-07-2019 Erythrocyte distribution width (RBC) [Ratio] 12.0 % Normal 11-14.5 [facility] Comment on above: Order Comment: Ankushu s: M Performed By: #### L 500.27022, L500.60488, L500.77257, L500.98566 #### [facility] [address] [place] [address] Hematocrit (Bld) [Volume fraction] 37.4 % Normal 35.0-47.0 [facility] Comment on above: Order Comment: Campu s: M Performed By: #### L 500.07331, L500.49239, L500.78067, L500.88685 #### [facility] [address] [place] [address] Hemoglobin (Bld) [Mass/Vol] 12.2 g/dL Normal 11.5-15.5 [facility] Comment on above: Order Comment: Campu s: M Performed By: #### L 500.12186, L500.10776, L500.69311, L500.00095 #### [facility] [address] [place] [address] MCHC (RBC) [Mass/Vol] 32.6 g/dL Normal 32.0-36.0 [facility] Comment on above: Order Comment: Campu s: M Performed By: #### L 500.61425, L500.42935, L500.44512, L500.36025 #### [facility] [address] [place] [address] MCV (RBC) [Entitic vol] 91.9 fL Normal 80.0-99.0 [facility] Comment on above: Order Comment: Campu s: M Performed By: #### L 500.60870, L500.34161, L500.17286, L500.43186 #### [facility] [address] [place] [address] Nucleated RBC/100 WBC (Bld) [Ratio] 0.0 % Normal Less than 1 [facility] Comment on above: Order Comment: Campu s: M Performed By: #### L 500.09027, L500.22898, L500.26460, L500.99200 #### [facility] [address] [place] [address] Platelet mean volume (Bld) [Entitic vol] 8.7 fL Low 9.4-12.4 [facility] Comment on above: Order Comment: Campu s: M Performed By: #### L 500.83531, L500.71304, L500.97776, L500.08113 #### [facility] [address] [place] [address] Platelets (Bld) [#/Vol] 280 K/CU MM Normal 150-450 [facility] Comment on above: Order Comment: Campu s: M Performed By: #### L 500.04271, L500.91117, L500.17692, L500.33296 #### [facility] [address] [place] [address] RBC (Bld) [#/Vol] 4.07 M/CU MM Normal 3.90-5.30 [facility] Comment on above: Order Comment: Campu s: M Performed By: #### L 500.98046, L500.72355, L500.00938, L500.69812 #### [facility] [address] [place] [address] WBC (Bld) [#/Vol] 18.7 K/CUMM High 4.5-11.0 [facility] Comment on above: Order Comment: Campu s: M Performed By: #### L 500.37180, L500.82679, L500.84625, L500.32927 #### [facility] [address] [place] [address] CONS.ONCon 02-07-2019 CONS.ONC [facility] Patient Name: HAMLET TEIXEIRA [address] [place] [address] Date of : [address] [address] Unit Number: [id number] CONSULTATION-ONC Patient Status: ADM IN Attending Doctor: [...] per week. She is . 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 Allergies Coded Allergies: NO KNOWN DRUG ALLERGIES (02/06/19) Home Medications Etonogestrel/Ethinyl Estradiol (Nuvaring Vaginal Ring) 1 EACH VAG.RING 1 EACH VG, Ref 0 (Reported) Entered as Reported by ALLIE GARCAI on 02/06/192049 Last Action: Reviewed on 02/06/192049 [...] Time Mode Bell MD Verified/Reviewed by 02/07/19 7206 Shai Brown CNP Verified/Reviewed by 02/07/[address] [facility] CONSULTATION-ONC [facility] PROG IMSon 02-07-2019 PROG [facility] Patient Name: HAMLET TEIXEIRA [address] Date of : [address] [facility] Unit Number: [id number] Progress Note-Hospitalist Patient Status: DIS IN Attending [...] They did not recommend thrombophilia work-up. 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 Patient is [...] Luna MD Verified/Reviewed by 02/11/19 0938 Normal [facility] Progress Note-Hospitalist Normal [facility] BMPon 02-06-2019 Anion gap [Moles/Vol] 7 mmol/L Normal 5-16 [facility] Comment on above: Order Comment: Campu s: M Performed By: #### L 500.10664, L500.91667, L500.22609 #### [facility] [place] [address] Calcium [Mass/Vol] 8.8 mg/dL Normal 8.5-10.1 [facility] Comment on above: Order Comment: Campu s: M Performed By: #### L 500.33964, L500.71000, L500.24819 #### [facility] [address] [place], [place] [address] Chloride [Moles/Vol] 106 mmol/L Normal 98-107 [facility] Comment on above: Order Comment: Campu s: M Performed By: #### L 500.96753, L500.39564, L500.78546 #### [facility] [place] [address] CO2 [Moles/Vol] 26 mmol/L Normal 21-32 [facility] Comment on above: Order Comment: Campu s: M Performed By: #### L 500.81623, L500.65717, L500.22655 #### [facility] [address] [place] [address] Creatinine [Mass/Vol] 0.820 mg/dL Normal 0.510- 0.95 0 [facility] Comment on above: Order Comment: Campu s: M Result Comment: Kathy ents receiving either N-Acetylcysteine (NAC) or Metamizole prior to venipuncture, may have falsely depressed results. Performed By: #### L 500.04714, L500.09359, L500.95016 #### [facility] [address] [place] [address] Glucose [Mass/Vol] 83 mg/dL Normal 70-100 [facility] Comment on above: Order Comment: Campu s: M Result Comment: 70-1 00- Normal Fasting; 100-125 Impaired Fasting; greater than 126 on more than one result- Diabetes. ADA guidelines. Results may be falsely elevated after the administration of Sulfapyridine. Results may be falsely depressed after the administration of Sulfasalazine. Performed By: #### L 500.58408, L500.94596, L500.04831 #### [facility] [address] [place] [address] Potassium [Moles/Vol] 4.3 mmol/L Normal 3.5-5.1 [facility] Comment on above: Order Comment: Campu s: M Performed By: #### L 500.58332, L500.34477, L500.42675 #### [facility] [address] [place] [address] Sodium [Moles/Vol] 138 mmol/L Normal 136-145 [facility] Comment on above: Order Comment: Campu s: M Performed By: #### L 500.17011, L500.35759, L500.52736 #### [facility] [address] [place], [place] [address] Urea nitrogen [Mass/Vol] 11 mg/dL Normal 7-26 [facility] Comment on above: Order Comment: Campu s: M Performed By: #### L 500.65985, L500.32155, L500.42307 #### [facility] [address] [place] [address] Urea nitrogen/Creatinine [Mass ratio] 14 mg/mg Low 15-24 [facility] Comment on above: Order Comment: Campu s: M Performed By: #### L 500.89161, L500.60282, L500.11367 #### [facility] [address] [place] [address] CBC W/DIFFon 02-06-2019 BASO ABS 0.10 K/CU MM Normal 0-0.2 [facility] Comment on above: Order Comment: Campu s: M Performed By: #### L 200.67682 #### [facility] [address] [place] [address] Basophils/100 WBC (Bld) 0.5 % Normal 0-2 [facility] Comment on above: Order Comment: Campu s: M Performed By: #### L 200.62862 #### [facility] [address] [place] [address] EOS ABS 0.20 K/CU MM Normal 0-0.5 [facility] Comment on above: Order Comment: Campu s: M Performed By: #### L 200.09478 #### [facility] [address] [place] [address] Eosinophils/100 WBC (Bld) 1.0 % Normal 0-5 [facility] Comment on above: Order Comment: Campu s: M Performed By: #### L 200.55544 #### [facility] [address] [place] [address] Erythrocyte distribution width (RBC) [Ratio] 12.2 % Normal 11-14.5 [facility] Comment on above: Order Comment: Campu s: M Performed By: #### L 200.33200 #### [facility] [address] [place] [address] Hematocrit (Bld) [Volume fraction] 42.5 % Normal 35.0-47.0 [facility] Comment on above: Order Comment: Campu s: M Performed By: #### L 200.08111 #### [facility] [address] [place] [address] Hemoglobin (Bld) [Mass/Vol] 13.5 g/dL Normal 11.5-15.5 [facility] Comment on above: Order Comment: Campu s: M Performed By: #### L 200.54435 #### [facility] [address] [place] [address] IMMATR GRAN ABS 0.10 K/CU MM Normal Less than 2 [facility] Comment on above: Order Comment: Campu s: M Performed By: #### L 200.37164 #### [facility] [address] [place] [address] IMMATURE GRAN % 0.6 % Normal Less than 2 [facility] Comment on above: Order Comment: Campu s: M Performed By: #### L 200.16762 #### [facility] [address] [place] [address] Lymphocytes (Bld) [#/Vol] 4.40 K/CU MM Normal 0.9-4.4 [facility] Comment on above: Order Comment: Campu s: M Performed By: #### L 200.05638 #### [facility] [address] [place] [address] Lymphocytes/100 WBC (Bld) 20.1 % Normal 20-40 [facility] Comment on above: Order Comment: Campu s: M Performed By: #### L 200.33625 #### [facility] [address] [place] [address] MCHC (RBC) [Mass/Vol] 31.8 g/dL Low 32.0-36.0 [facility] Comment on above: Order Comment: Campu s: M Performed By: #### L 200.05274 #### [facility] [address] [place] [address] MCV (RBC) [Entitic vol] 92.0 fL Normal 80.0-99.0 [facility] Comment on above: Order Comment: Campu s: M Performed By: #### L 200.16227 #### [facility] [address] [place] [address] MONO ABS 1.20 K/CU MM High 0.1-1.1 [facility] Comment on above: Order Comment: Campu s: M Performed By: #### L 200.18631 #### [facility] [address] [place] [address] Monocytes/100 WBC (Bld) 5.7 % Normal 2-10 [facility] Comment on above: Order Comment: Campu s: M Performed By: #### L 200.36974 #### [facility] [address] [place] [address] NEUTROPHIL ABS 15.60 K/CU MM High 2.0-8.3 [facility] Comment on above: Order Comment: Campu s: M Performed By: #### L 200.84550 #### [facility] [address] [place] [address] Neutrophils/100 WBC (Bld) 72.1 % Normal 45-75 [facility] Comment on above: Order Comment: Campu s: M Performed By: #### L 200.51523 #### [facility] [address] [place] [address] Nucleated RBC/100 WBC (Bld) [Ratio] 0.0 % Normal Less than 1 [facility] Comment on above: Order Comment: Campu s: M Performed By: #### L 200.03223 #### [facility] [address] [place] [address] Platelet mean volume (Bld) [Entitic vol] 8.6 fL Low 9.4-12.4 [facility] Comment on above: Order Comment: Campu s: M Performed By: #### L 200.61177 #### [facility] [address] [place] [address] Platelets (Bld) [#/Vol] 300 K/CU MM Normal 150-450 [facility] Comment on above: Order Comment: Campu s: M Performed By: #### L 200.57444 #### [facility] [address] [place] [address] RBC (Bld) [#/Vol] 4.62 M/CU MM Normal 3.90-5.30 [facility] Comment on above: Order Comment: Campu s: M Performed By: #### L 200.33101 #### [facility] [place] [address] WBC (Bld) [#/Vol] 21.7 K/CUMM High 4.5-11.0 [facility] Comment on above: Order Comment: Campu s: M Performed By: #### L 200.41731 #### [facility] [address] [place] [address] CDLECHOon 02-06-2019 CDLECHO INTERPRETING PHYSICI AN: Tammy [...] ventricle has normal dimensions. The visually estimated [facility] PATIENT NAME: HAMLET TEIXEIRA Carisa Pham MEDICAL REC #: [id number] [place] [address] ADMIT DATE: 02/06/19 DISCHARGE DATE: 02/08/19 ATTENDING [...] mitral and tricuspid regurgitation. Tammy Henson MD [id number] [facility] File#: [id number] Verified/Reviewed by [address] PATIENT NAME: HAMLET TEIXEIRA Carisa Pham MEDICAL REC #: [id number] [place] [address] ADMIT DATE: 02/06/19 DISCHARGE DATE: 02/08/19 ATTENDING PHY: Sia Ashton MD ECHOCARDIOGRAM REPORT Normal [facility] ECHOCARDIOGRAM REPORT Normal [facility] CT ANG THOR W/POST PROCon CT ANG [...] M.D. Signed By: SCOTT PENA M.D. Normal [facility] [place] 02-06-2019 EMERGENCY PHYSICIAN REPORT This is a preliminary report only, as the practitioner review and authentication has not occurred. Normal [facility] ER PHYSICIAN ASSESSMENT RECORDS : FlexChartData Event Time: 02/06/2019 20:55 Status: Signed [facility] Hamlet Teixeira [[id number]] Attending Physician 1985 Chart (V2b) Chart created at 02/06/2019 20:14 by Ryan Saldana Chart closed at 02/06/2019 20:22 Entry in Emergency Department at 02/06/2019 16:42 Patient Name: Hamlet Teixeira Record Number: [id number] Date: 02/06/2019 20:14 Entered Department at: 02/06/2019 [...] Elements: Onset: Days ago; Timing: Sudden Onset; [facility] PATIENT NAME: HAMLET TEIXEIRA [address] Pham MEDICAL REC #: [id number] [place] [address] EMERGENCY DEPARTMENT REPORT EMERGENCY DEPARTMENT PHYSICIAN Quality: [...] 21.7* andgt;------andlt; 300 / 42.5 / N:72.1 [facility] PATIENT NAME: HAMLET TEIXEIRA [address] Pham MEDICAL REC #: [id number] [place] [address] EMERGENCY DEPARTMENT REPORT EMERGENCY DEPARTMENT PHYSICIAN BASO [...] NIVIA [place] W/POST PROC Ordering Physician: Jenna oCle 02/06/2019 5:45 PM COMPUTED TOMOGRAPHIC ANGIOGRAPHY OF THE THORAX Clinical Statement: Shortness of breath, chest pain, evaluate for pulmonary emboli TECHNIQUE: 1.25 mm thick axial images of the thorax were [facility] PATIENT NAME: HAMLET TEIXEIRA [address] Pham MEDICAL REC #: [id number] [place] [address] EMERGENCY DEPARTMENT REPORT EMERGENCY DEPARTMENT PHYSICIAN obtained [...] to small emboli in the right lung. [facility] PATIENT NAME: HAMLET TEIXEIRA [address] Pham MEDICAL REC #: [id number] [place] [address] EMERGENCY DEPARTMENT REPORT EMERGENCY DEPARTMENT PHYSICIAN ---- [...] for Admit: Acute multiple bilateral pulmonary emboli.. [facility] PATIENT NAME: HAMLET TEIXEIRA Dr. Pham MEDICAL REC #: [id number] [place] [address] EMERGENCY DEPARTMENT REPORT EMERGENCY DEPARTMENT PHYSICIAN Disposition: Admitted at 06 Feb 2019, 20:22. MSE completed. I was the primary ED attending.. 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 [employer] Patient: HAMLET TEIXEIRA Sex: F : 1985 Age: 33 yr Account No: [id number] Registration Date: 16:42 02/06/2019 Address: [address] [place] [address] Address: [place] [address] REGISTRATION ED Number: [id number] Marital Status: M Financial Class: PPO TRIAGE Priority: 3 - Urgent Complaint: Shortness of Breath Stated Complaint: PT PRESENTS WITH LEFT ARM PAIN AND SHORTNESS OF BREATH/ SENT BY PCP TO R/O PE Arrival Date: 02/06/2019 16:42 Triage Date: 02/06/2019 16:42 Mode of Arrival: *Privately Owned Vehicle Transfer From: * Home WC: N Language: Yoruba [facility] PAT[facility]: [facility] MEDICAL REC #: [id number] [place] [address] EMERGENCY DEPARTMENT REPORT EMERGENCY DEPARTMENT PHYSICIAN Transport: [...] Cole Provider Contact: 02/06/2019 17:39:07 RUSSEL End: LORRIE AVENDANO Provider Contact: 02/06/2019 18:24:30 SERAFIN End: MD Ryan Saldana Provider Contact: 02/06/2019 20:05:12 [facility] End: IRINA GLEZ Provider Contact: 02/06/2019 21:32:56 ACU End: TRIAGE HISTORY ALLERGIES [facility] PATIENT NAME: HAMLET TEIXEIRA [address] MEDICAL REC #: [id number] [place] [address] EMERGENCY DEPARTMENT REPORT EMERGENCY DEPARTMENT PHYSICIAN Allergic To: No Known Allergies - 02/06/2019 16:44 [facility] CURRENT MEDS Name: NUVARING VAGINAL RING - VAG 02/06/2019 19:04 SERAFIN Name: per pt 02/06/19 02/06/2019 19:04 SERAFIN Name: NAPROXEN 250MG TABLET - PO 02/06/2019 19:04 SERAFIN Freq: PRN ILLNESS Illness: *None 02/06/2019 16:44 [facility] PAST SURGERY HIST Surgery: Cholecystectomy 02/06/2019 16:44 [facility] PAST SOCIAL HIST Social History: Behavior age appropriate 02/06/2019 16:44 [facility] Social History: Communicates without difficulty 02/06/2019 16:44 [facility] Social History: Lives with family or significant other 02/06/2019 16:44 [facility] Social History: Alcohol - None 02/06/2019 16:44 [facility] Social History: Smoker-None 02/06/2019 16:44 [facility] Social History: Recreational Drugs - None 02/06/2019 16:44 [facility] Social History: Have you traveled in the past month? 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 ASHTON called at 200702/06/2019 20:14 [facility] 02/06/2019 20:13 Physician Call - Dr. ASHTON answered at 200702/06/2019 20:14 [facility] 02/06/2019 20:59 Medication Verification - Heparin dose verified at bedside with Candice Ocampo RN 02/06/2019 21:02 SERAFIN 02/06/2019 21:16 Medication Verification - Heparin dose verified at bedside with Tasha MCDONALD 02/06/2019 21:17 BRR MEDICATIONS IV [facility] PATIENT NAME: HAMLET TEIXEIRA P [address] Pham MEDICAL REC #: [id number] [place] [address] EMERGENCY DEPARTMENT REPORT EMERGENCY DEPARTMENT PHYSICIAN IV [...] Sa02: 99 Room Air 02/06/2019 19:02 SERAFIN [facility] PATIENT NAME: HAMLET TEIXEIRA [address] Pham MEDICAL REC #: [id number] [place] [address] EMERGENCY DEPARTMENT REPORT EMERGENCY DEPARTMENT PHYSICIAN VS-Pain [...] (IV)*(30mg/ml) DOSE: 15 mg IV 02/06/2019 20:46 [facility] PATIENT NAME: HAMLET TEIXEIRA [address] [facility] MEDICAL REC #: [id number] BRIAN Perez [address] EMERGENCY DEPARTMENT REPORT EMERGENCY DEPARTMENT PHYSICIAN N/A [...] Ryan Saldana Noted Time: 02/06/2019 20:39 SERAFIN ANATOMIC PATHOLOGY MANAGER ORDER: GFRP 02/06/2019 18:32 None Ordered: 02/06/2019 18:32 Completed Time: 02/06/2019 18:32 Results Time: 02/06/2019 18:32 ANATOMIC PATHOLOGY MANAGER ORDER: POCTROP 02/06/2019 18:22 None Ordered: 02/06/2019 18:22 Completed Time: 02/06/2019 18:22 Results Time: 02/06/2019 18:22 IV hep lock 02/06/2019 18:03 N/A Ordered: 02/06/2019 17:45 By Jenna Cole Completed Time: 02/06/2019 18:03 By Jenna Cole IV NS bolus 1L over 60 min 02/06/2019 19:01 [facility] PATIENT NAME: HAMLET TEIXEIRA [address] Pham MEDICAL REC #: [id number] [place] [address] EMERGENCY DEPARTMENT REPORT EMERGENCY DEPARTMENT PHYSICIAN N/A [...] 02/06/2019 18:03 ANF Results Time: 02/06/2019 18:32 [facility] PATIENT NAME: HAMLET TEIXEIRA [address] Pham MEDICAL REC #: [id number] [place] [id number] EMERGENCY DEPARTMENT REPORT EMERGENCY DEPARTMENT PHYSICIAN Duplex [...] DE LA ROSA RN P Jenna BLACKMON [facility] PATIENT NAME: HAMLET TEIXEIRA Dr. MEDICAL REC #: [id number] [place] [address] EMERGENCY DEPARTMENT REPORT EMERGENCY DEPARTMENT PHYSICIAN XI AVENDANO SERAFIN [facility] PATIENT NAME: YENIREGINAHAMLET Dr. MEDICAL REC #: [id number] [place] [address] EMERGENCY DEPARTMENT REPORT EMERGENCY DEPARTMENT PHYSICIAN Normal [facility] GFR ESTon 02-06-2019 IF AMER Greater than 60 Normal [facility] Comment on above: Order Comment: Campu s: M Performed By: #### L 500.02466, L500.28128, L500.80314 #### [facility] [address] [place] [address] IF non-AFR AMER Greater than 60 Normal [facility] Comment on above: Order Comment: Campu s: M Performed By: #### L 500.58974, L500.98278, L500.38656 #### [facility] [address] [place] [address] HCGon 02-06-2019 HCG Qn Negative Normal NEGATIVE [facility] Comment on above: Order Comment: Campu s: M Performed By: #### L 500.76275, L500.70176, L500.76071 #### [facility] [address] [place] [address] HP.[email or web address] 02-06-2019 Admission-H&P Normal [facility] HP.IMS.ADM [facility] Patient Name: HAMLET TEIXEIRA [address] [place] [address] Date of : [address] [place] [address] Unit Number: [id number] Admission-HandP Patient Status: REG ER Attending Doctor: [...] her and son. She works as a [employer]. She does work third shift as a [...] Recent Impressions COMPUTERIZED TOMOGRAPHY - CT ANG ANNANDALE W/POST PROC 02/07 1940 Report Impression - [...] Time Sia Ashton MD Verified/Reviewed by 02/06/19 8695 Normal [facility] [place] TROPONIN I POCon 02-06-2019 Troponin I.cardiac [Mass/Vol] 0.00 ng/mL Normal 0.0-0.06 [facility] Comment on above: Result Comment: 0.0 - 0.06 NG/ML - NON-DIAGNOSTIC (REFERENCE RANGE) 0.07 - 0.59 NG/ML - INDETERMINATE Greater than or equal to 0.6 NG/ML - INDICATIVE OF MYOCARDIAL DAMAGE VLVDon 02-06-2019 VENOUS DUPLEX REPORT Normal [facility] VASCULAR MEDSTREAMIN G REPORT Patient: HAMLET TEIXEIRA Account [id number] Ordering Phy: MR: [id number] Reason for Visit: PULMONARY EMBOLISM Date of [...] Full Report is available via link to [employer] under [employer]. * [facility] PATIENT NAME: HAMLET TEIXEIRA P [address] [place]am MEDICAL REC #: [id number] [place] [address] ADMIT DATE: 02/06/19 DISCHARGE DATE: VENOUS DUPLEX REPORT ATTENDING PHY: Sia Ashton MD Electronically Signed by: Rupesh Sharp MD Esign Date: 02/07/19 Normal [facility] CBC W/DIFFon 10-11-2018 BASO ABS 0.10 K/CU MM Normal 0-0.2 [facility] Comment on above: Performed By: #### L 200.55525 #### [facility] [address] [place] [address] Basophils/100 WBC (Bld) 0.8 % Normal 0-2 [facility] Comment on above: Performed By: #### L 200.23386 #### [facility] [address] [place] [address] EOS ABS 0.10 K/CU MM Normal 0-0.5 [facility] Comment on above: Performed By: #### L 200.99907 #### [facility] [address] [place] [address] Eosinophils/100 WBC (Bld) 1.3 % Normal 0-5 [facility] Comment on above: Performed By: #### L 200.69202 #### [facility] [address] [place] [address] Erythrocyte distribution width (RBC) [Ratio] 12.0 % Normal 11-14.5 [facility] Comment on above: Performed By: #### L 200.57431 #### [facility] [address] [place] [address] Hematocrit (Bld) [Volume fraction] 37.9 % Normal 35.0-47.0 [facility] Comment on above: Performed By: #### L 200.37268 #### [facility] [address] [place] [address] Hemoglobin (Bld) [Mass/Vol] 12.5 g/dL Normal 11.5-15.5 [facility] Comment on above: Performed By: #### L 200.51855 #### [facility] [address] [place] [address] IMMATR GRAN ABS 0.00 K/CU MM Normal Less than 2 [facility] Comment on above: Performed By: #### L 200.36120 #### [facility] [address] [place] [address] IMMATURE GRAN % 0.4 % Normal Less than 2 [facility] Comment on above: Performed By: #### L 200.96731 #### [facility] [address] [place] [address] Lymphocytes (Bld) [#/Vol] 3.20 K/CU MM Normal 0.9-4.4 [facility] Comment on above: Performed By: #### L 200.62958 #### [facility] [address] [place] [address] Lymphocytes/100 WBC (Bld) 31.3 % Normal 20-40 [facility] Comment on above: Performed By: #### L 200.84809 #### [facility] [address] [place] [address] MCHC (RBC) [Mass/Vol] 33.0 g/dL Normal 32.0-36.0 [facility] Comment on above: Performed By: #### L 200.84002 #### [facility] [address] [place] [address] MCV (RBC) [Entitic vol] 90.0 fL Normal 80.0-99.0 [facility] Comment on above: Performed By: #### L 200.76132 #### [facility] [address] [place] [address] MONO ABS 0.50 K/CU MM Normal 0.1-1.1 [facility] Comment on above: Performed By: #### L 200.78547 #### [facility] [address] [place] [address] Monocytes/100 WBC (Bld) 4.7 % Normal 2-10 [facility] Comment on above: Performed By: #### L 200.32301 #### [facility] [address] [place] [address] NEUTROPHIL ABS 6.30 K/CU MM Normal 2.0-8.3 [facility] Comment on above: Performed By: #### L 200.62307 #### [facility] [address] [place] [address] Neutrophils/100 WBC (Bld) 61.5 % Normal 45-75 [facility] Comment on above: Performed By: #### L 200.60800 #### [facility] [address] [place] [address] Nucleated RBC/100 WBC (Bld) [Ratio] 0.0 % Normal Less than 1 [facility] Comment on above: Performed By: #### L 200.82982 #### [facility] [address] [place] [address] Platelet mean volume (Bld) [Entitic vol] 9.2 fL Low 9.4-12.4 [facility] Comment on above: Performed By: #### L 200.17007 #### [facility] [address] [place], [place] [address] Platelets (Bld) [#/Vol] 321 K/CU MM Normal 150-450 [facility] Comment on above: Performed By: #### L 200.69505 #### [facility] [address] [place] [address] RBC (Bld) [#/Vol] 4.21 M/CU MM Normal 3.90-5.30 [facility] Comment on above: Performed By: #### L 200.73603 #### [facility] [address] [place] [address] WBC (Bld) [#/Vol] 10.3 K/CUMM Normal 4.5-11.0 [facility] Comment on above: Performed By: #### L 200.41179 #### [facility] [address] [place] [address] CMPon 10-11-2018 Albumin [Mass/Vol] 3.2 g/dL Normal 3.2-5.0 [facility] Comment on above: Performed By: #### L 500.50098, L500.09981, L500.39122, L500.56162 #### [facility] [place] [address] Albumin/Globulin [Mass ratio] 0.9 {ratio} Normal 0.8-2.0 [facility] Comment on above: Performed By: #### L 500.85470, L500.18955, L500.87854, L500.28232 #### [facility] [address] [place] [address] ALK PHOS 54 U/L Normal 45-117 [facility] Comment on above: Performed By: #### L 500.42878, L500.79794, L500.04027, L500.62613 #### [facility] [address] [place] [address] ALT [Catalytic activity/Vol] 15 U/L Normal 13-61 [facility] Comment on above: Result Comment: RESU LTS MAY BE FALSELY DEPRESSED AFTER THE ADMINISTRATION OF SULFASALAZINE AND/OR SULFAPYRIDINE. Performed By: #### L 500.95378, L500.13431, L500.32008, L500.49618 #### [facility] [address] [place] [address] Anion gap [Moles/Vol] 8 mmol/L Normal 5-16 [facility] Comment on above: Performed By: #### L 500.67270, L500.05539, L500.88568, L500.63984 #### [facility] [address] [place] [address] BILI TOTAL 0.3 MG/DL Normal 0.2-1.0 [facility] Comment on above: Performed By: #### L 500.21819, L500.99038, L500.11445, L500.06026 #### [facility] [place] [address] Calcium [Mass/Vol] 8.3 mg/dL Low 8.5-10.1 [facility] Comment on above: Performed By: #### L 500.12561, L500.72669, L500.69413, L500.73255 #### [facility] [address] [place] [address] Chloride [Moles/Vol] 113 mmol/L High 98-107 [facility] Comment on above: Performed By: #### L 500.65806, L500.70426, L500.14884, L500.48232 #### [facility] [address] [place] [address] CO2 [Moles/Vol] 24 mmol/L Normal 21-32 [facility] Comment on above: Performed By: #### L 500.08366, L500.27765, L500.92579, L500.45837 #### [facility] [address] [place] [address] Creatinine [Mass/Vol] 0.909 mg/dL Normal 0.510- 0.95 0 [facility] Comment on above: Result Comment: Kathy ents receiving either N-Acetylcysteine (NAC) or Metamizole prior to venipuncture, may have falsely depressed results. Performed By: #### L 500.50227, L500.78324, L500.94258, L500.76097 #### [facility] [address] [place] [address] Globulin (S) [Mass/Vol] 3.6 g/dL Normal 2.2-4.2 [facility] Comment on above: Performed By: #### L 500.29148, L500.56489, L500.43955, L500.99471 #### [facility] [place] [address] Glucose [Mass/Vol] 88 mg/dL Normal 70-100 [facility] Comment on above: Result Comment: 70-1 00- Normal Fasting; 100-125 Impaired Fasting; greater than 126 on more than one result- Diabetes. ADA guidelines. Results may be falsely elevated after the administration of Sulfapyridine. Results may be falsely depressed after the administration of Sulfasalazine. Performed By: #### L 500.33254, L500.07303, L500.67888, L500.42350 #### [facility] [address] [place] [address] Potassium [Moles/Vol] 4.6 mmol/L Normal 3.5-5.1 [facility] Comment on above: Performed By: #### L 500.05185, L500.13787, L500.95804, L500.10779 #### [facility] [address] [place], [place] [address] Protein [Mass/Vol] 6.8 g/dL Normal 6.0-8.5 [facility] Comment on above: Performed By: #### L 500.29904, L500.67008, L500.98481, L500.63288 #### [facility] [address] [place] [address] SGOT (AST) 8 U/L Normal 8-34 [facility] Comment on above: Result Comment: RESU LTS MAY BE FALSELY DEPRESSED AFTER THE ADMINISTRATION OF SULFASALAZINE AND/OR SULFAPYRIDINE. Performed By: #### L 500.48235, L500.97171, L500.78868, L500.36375 #### [facility] [address] [place] [address] Sodium [Moles/Vol] 145 mmol/L Normal 136-145 [facility] Comment on above: Performed By: #### L 500.96645, L500.07432, L500.20131, L500.59088 #### [facility] [address] [place], [place] [address] Urea nitrogen [Mass/Vol] 9 mg/dL Normal 7-26 [facility] Comment on above: Performed By: #### L 500.40513, L500.69688, L500.02928, L500.17064 #### [facility] [address] [place] [address] Urea nitrogen/Creatinine [Mass ratio] 10 mg/mg Low 15-24 [facility] Comment on above: Performed By: #### L 500.75180, L500.84785, L500.54592, L500.65115 #### [facility] [address] [place] [address] GFR ESTon 10-11-2018 IF AMER Greater than 60 Normal [facility] Comment on above: Performed By: #### L 500.62940, L500.23137, L500.75015, L500.61802 #### [facility] [address] [place] [address] IF non-AFR AMER Greater than 60 Normal [facility] Comment on above: Performed By: #### L 500.09324, L500.10619, L500.35623, L500.08883 #### [facility] [address] [place], [place] [address] LIPIDon 10-11-2018 Cholesterol [Mass/Vol] 180 mg/dL Normal 0-199 [facility] Comment on above: Performed By: #### L 500.08646, L500.68579, L500.08064, L500.69009 #### [facility] [address] [place], [place] [address] Cholesterol in HDL [Mass/Vol] 51 mg/dL Normal [place]ATER [place] 40 [facility] Comment on above: Result Comment: Kathy ents receiving Metamizole prior to venipuncture, may have falsely depressed results. Performed By: #### L 500.23200, L500.07698, L500.73529, L500.40329 #### [facility] [address] [place] [address] Cholesterol in LDL [Mass/Vol] 90 mg/dL Normal 0-129 [facility] Comment on above: Result Comment: ___C HOLESTEROL/HDL RATIO RISK___ CHD RISK = Total CHOL LDL HDL (CHOL/HDL) Recommended <200 <130 >35 <3.4 Borderline 200-239 130-159 3.4-4.99 High >240 >160 >5.0 Performed By: #### L 500.28186, L500.56431, L500.86791, L500.49492 #### [facility] [address] [place] [address] Triglyceride [Mass/Vol] 195 mg/dL High 30-149 [facility] Comment on above: Result Comment: Kathy ents receiving either N-Acetylcysteine (NAC) or Metamizole prior to venipuncture, may have falsely depressed results. Performed By: #### L 500.93119, L500.08170, L500.82690, L500.46328 #### [facility] [address] [place] [address] TSHon 10-11-2018 TSH Qn 1.660 UIU/ML Normal 0.358-3.74 0 [facility] Comment on above: Result Comment: 3rd generation ultra sensitive TSH Performed By: #### L 500.12168, L500.56110, L500.31042, L500.69591 #### [facility] [address] [place] [address] HCG,Totalon 07-17-2018 HCG Qn 8938.0 m[IU]/mL Normal [facility] Comment on above: Result Comment: Male < or = 1Non- female 1- 3Gestational Age:0.2-1 Week 5 - 501-2 Weeks 50 - 5002-3 Weeks 100 - 71303-8 Weeks 500 - 656014-3 weeks 1000 - 326444-7 weeks 25398 - 100,0006-8 weeks 44017 - 200,0002-3 months 52916 - 100,000 Performed By: #### H ####[place] [address] Patient Summary Documentson 10-29-2017 Patient Summary Documents Normal [facility] ([place]) Vital Signs Date Time Vital Sign Value Performing Clinician Facility 05-13-2025 09:17-0400 Body temperature 98 [degF] Dr. Ortega Medrano MD Work Phone: [facility] 05-13-2025 09:17-0400 Diastolic blood pressure 63 mm[Hg] Dr. Ortega Medrano MD Work Phone: [facility] 05-13-2025 09:17-0400 Heart rate 74 /min Dr. Ortega Medrano MD Work Phone: [facility] 05-13-2025 09:17-0400 Respiratory rate 16 /min Dr. Ortega Medrano MD Work Phone: [facility] 05-13-2025 09:17-0400 SaO2% (BldA) [Mass fraction] 98 % Dr. Ortega Medrano MD Work Phone: 6(644)072-749599 [place] [address] 05-13-2025 09:17-0400 Systolic blood pressure 112 mm[Hg] Dr. Ortega Medrano MD Work Phone: 6(656)009-833299 [place] [address] 05-12-2025 16:47-0400 Body height 160.[address] Ortega Medrano MD Work Phone: 0(270)145-001911 [place] [address] 05-12-2025 16:47-0400 Body mass index (BMI) [Ratio] 40.4 kg/m2 Dr. Ortega Medrano MD Work Phone: 8(694)144-904011 [place] [address] 05-12-2025 16:47-0400 Body weight 103.[address] Ortega Medrano MD Work Phone: 3(648)107-355405 [address] 05-12-2025 16:00-0400 Inhaled oxygen flow rate 3 L/min Dr. Ortega Medrano MD Work Phone: 6(032)122-387699 [place] [address] 04-17-2025 09:28-0400 Body height 160.[address] Ortega Medrano MD Work Phone: 3(521)131-441999 [place] [address] 04-17-2025 09:28-0400 Body mass index (BMI) [Ratio] 40.2 kg/m2 Dr. Ortega Medrano MD Work Phone: 8(387)502-229799 [place] [address] 04-17-2025 09:28-0400 Body temperature 98.5 [degF] Dr. Ortega Medrano MD Work Phone: 0(805)029-451799 [place] [address] 04-17-2025 09:28-0400 Body weight 103.[address] Ortega Medrano MD Work Phone: 7(390)363-165399 [place] [address] 04-17-2025 09:28-0400 Diastolic blood pressure 87 mm[Hg] Dr. Ortega Medrano MD Work Phone: [facility] 04-17-2025 09:28-0400 Heart rate 63 /min Dr. Ortega Medrano MD Work Phone: [facility] 04-17-2025 09:28-0400 Respiratory rate 18 /min Dr. Ortega Medrano MD Work Phone: [facility] 04-17-2025 09:28-0400 SaO2% (BldA) [Mass fraction] 98 % Dr. Ortega Medrano MD Work Phone: [facility] 04-17-2025 09:28-0400 Systolic blood pressure 136 mm[Hg] Dr. Ortega Medrano MD Work Phone: [facility] 03-09-2025 14:23-0400 Body height 160 cm Baltazar Courtney MD Work Phone: [facility] 03-09-2025 14:23-0400 Body mass index (BMI) [Ratio] 40.57 kg/m2 Baltazar Courtney MD Work Phone: [facility] 03-09-2025 14:23-0400 Body temperature 97.11 [degF] Baltazar Courtney MD Work Phone: [facility] 03-09-2025 14:23-0400 Body weight 103.87 kg Baltazar Courtney MD Work Phone: [facility] 03-09-2025 14:23-0400 Diastolic blood pressure 82 mm[Hg] Baltazar Courtney MD Work Phone: [facility] Comment on above: Dr. Courtney notified of blood pressure 03-09-2025 14:23-0400 Heart rate 96 /min Baltazar Courtney MD Work Phone: [facility] 03-09-2025 14:23-0400 Respiratory rate 14 /min Baltazar Courtney MD Work Phone: [facility] 03-09-2025 14:23-0400 SaO2% (BldA) [Mass fraction] 98 % Baltazar Courtney MD Work Phone: [facility] 03-09-2025 14:23-0400 Systolic blood pressure 148 mm[Hg] Baltazar Courtney MD Work Phone: [facility] Comment on above: Dr. Courtney notified of blood pressure 07-30-2024 15:18-0500 Body mass index (BMI) [Ratio] 38.51 kg/m2 Yordy Andresen MD Work Phone: [facility] 07-30-2024 15:18-0500 Body temperature 98.6 [degF] Yordy Andersen MD Work Phone: [facility] 07-30-2024 15:18-0500 Body weight 98.6 kg Yordy Andersen MD Work Phone: [facility] 07-30-2024 15:18-0500 Diastolic blood pressure 80 mm[Hg] Yordy Andersen MD Work Phone: [facility] 07-30-2024 15:18-0500 Heart rate 80 /min Yordy Andersen MD Work Phone: [facility] 07-30-2024 15:18-0500 Respiratory rate 21 /min Yordy Andersen MD Work Phone: [facility] 07-30-2024 15:18-0500 SaO2% (BldA) [Mass fraction] 98 % Yordy Andersen MD Work Phone: [facility] 07-30-2024 15:18-0500 Systolic blood pressure 122 mm[Hg] Yordy Andersen MD Work Phone: [facility] 07-29-2024 15:01-0500 Body height 160 cm Gómez Yonuger MD Work Phone: [facility] 07-29-2024 15:01-0500 Body mass index (BMI) [Ratio] 37.98 kg/m2 Gómez Younger MD Work Phone: [facility] 07-29-2024 15:01-0500 Body temperature 98.01 [degF] Gómez Younger MD Work Phone: [facility] 07-29-2024 15:01-0500 Body weight 97.25 kg Gómez Younger MD Work Phone: [facility] 07-29-2024 15:01-0500 Diastolic blood pressure 78 mm[Hg] Gómez Younger MD Work Phone: [facility] 07-29-2024 15:01-0500 Systolic blood pressure 118 mm[Hg] Gómez Younger MD Work Phone: [facility] 07-07-2024 14:13-0500 Body height 160 cm Gómez Younger MD Work Phone: [facility] 07-07-2024 14:13-0500 Body mass index (BMI) [Ratio] 36.56 kg/m2 Gómez Younger MD Work Phone: [facility] 07-07-2024 14:13-0500 Body temperature 98.71 [degF] Gómez Younger MD Work Phone: [facility] 07-07-2024 14:13-0500 Body weight 93.62 kg Gómez Younger MD Work Phone: [facility] 07-07-2024 14:13-0500 Diastolic blood pressure 82 mm[Hg] Gómez Younger MD Work Phone: [facility] 07-07-2024 14:13-0500 Systolic blood pressure 118 mm[Hg] Gómez Younger MD Work Phone: [facility] 07-25-2023 09:03-0500 Body height 160.[address] Sommer Flynn Work Phone: [facility] 07-25-2023 08:55-0500 Body mass index (BMI) [Ratio] 39.2 kg/m2 Dr. Sommer Flynn Work Phone: [facility] 07-25-2023 08:55-0500 Body weight 100.[address] Sommer Flynn Work Phone: [facility] 07-25-2023 08:55-0500 Diastolic blood pressure 82 mm[Hg] Dr. Sommer Flynn Work Phone: [facility] 07-25-2023 08:55-0500 Systolic blood pressure 128 mm[Hg] Dr. Sommer Flynn Work Phone: [facility] Encounters Encounter Date Encounter Type Care Provider Facility Start: 06-25-2025 End: 06-25-2025 ambulatory óGmez Casiano [place] [place] Start: 06-24-2025 End: 06-24-2025 ambulatory Gómez Casiano Facility:[facility] Start: 06-15-2025 End: 06-15-2025 ambulatory Ortega Medrano Facility:[facility] Start: 05-22-2025 End: 05-22-[address] Gómez Casiano MD -[facility] Work Phone: Start: 05-22-2025 End: 05-22-[address] Ortega Medrano MD Work Phone: [facility] Start: 05-13-2025 Non-patient / Non-visit Dr. Gómez Casiano MD -[facility] Start: 05-12-2025 End: 05-13-2025 ambulatory Ortega Medrano Facility:[facility] Start: 05-12-2025 End: 05-13-2025 Evaluation and management of inpatient Dr. Gómez Casiano MD -[facility] Work Phone: Start: 05-12-2025 End: 05-13-[address] Ortega Medrano MD Work Phone: -[facility] Start: 05-12-2025 ambulatory Ortega Medrano Facilit y:[facility] Start: 05-12-2025 Non-patient / Non-visit Dr. Gómez Casiano MD -[facility] Start: 04-23-2025 End: 04-23-[address] Ortega Medrano MD Work Phone: -Ultrasound [facility] Start: 04-23-2025 End: 04-23-[address] Gómez Casiano MD -Ultrasound [facility] Work Phone: Start: 04-23-2025 End: 04-23-2025 ambulatory Ortega Medrano Facility:[facility] Start: 04-17-2025 End: 04-17-[address] Gómez Casiano MD -[facility] Work Phone: Start: 04-17-2025 End: 04-17-[address] Ortega Medrano MD Work Phone: [facility] Start: 03-16-2025 End: 03-16-2025 Patient encounter procedure Baltazar Courtney MD Work Phone: General Surgery Comment on above: Multinodular goiter (Primary Dx) Start: 03-16-2025 End: 03-16-2025 ambulatory ORTEGA MEDRANO Facility:[facility] Start: 03-09-2025 End: 03-09-2025 Patient encounter procedure Baltazar Courtney MD Work Phone: General Surgery Comment on above: Multinodular goiter (Primary Dx) Start: 03-09-2025 End: 03-09-2025 ambulatory BALTAZAR COURTNEY Facility:[facility] Start: 03-04-2025 End: 03-04-2025 Chart abstracting Baltazar Courtney MD Work Phone: General Surgery Start: 02-12-2025 End: 02-12-[address] Sommer Flynn MD Work Phone: [facility] Work Phone: Start: 02-12-2025 End: 02-12-[address] Ortega Medrano MD -Ultrasound [facility] Work Phone: Start: 02-12-2025 End: 02-12-2025 ambulatory Ortega Medrano Facility:[facility] Start: 02-05-2025 End: 02-05-[address] Sommer Flynn MD Work Phone: [facility] Work Phone: Start: 02-05-2025 End: 02-05-[address] Ortega Medrano MD -Laboratory [facility] Start: 02-05-2025 End: 02-05-2025 ambulatory Ortega Medrano Facility:[facility] Start: 01-15-2025 Encounter for genera l adult medical examination without abnormal findings Sommerdwaine Flynn [facility] Start: 01-15-2025 ambulatory Sommer Flynn Facilit y:[facility] Start: 11-15-2024 Registered [facility] RIS K ASSESSMENT -Laboratory Work Phone: Start: 11-15-2024 ambulatory Health Risk Assessment Facility:[facility] Start: 10-25-2024 ambulatory Health Risk Assessment Facility:[facility] Start: 10-25-2024 Registered [employer] [facility] RIS K ASSESSMENT -Employee Health Start: 10-23-2024 Registered [employer] [facility] RIS K ASSESSMENT -Employee [facility] Start: 10-23-2024 ambulatory Health Risk Assessment Facility:[facility] Start: 07-30-2024 End: 07-30-2024 ambulatory SOMMER FLYNN Facility:[facility] Start: 07-30-2024 End: 07-30-2024 Office outpatient new 30 minutes Yordy Andersen MD Work Phone: [facility] Comment on above: Acute non-recurrent sinusitis, unspecified location (Primary Dx) Start: 07-29-2024 End: 07-29-2024 ambulatory GÓMEZ YOUNGER [facility] Start: 07-29-2024 End: 07-29-2024 Postop follow up visit related to original px Gómez Younger MD Work Phone: [facility] [place] Comment on above: Perianal abscess (Pr imary Dx) Start: 07-28-2024 Encounter for gynecological examination (general) (routine) without abnormal findings Lali Gallagher [facility] Start: 07-28-2024 End: 07-28-2024 ambulatory Sommer Flynn Facility:[facility] Start: 07-28-2024 End: 07-28-2024 ambulatory Sommer Flynn Facility:[facility] Start: 07-07-2024 End: 07-07-2024 Patient encounter procedure Gómez Younger MD Work Phone: [facility] Colorectal Surgery - [place] Comment on above: Perianal abscess (Pr imary Dx) Start: 07-07-2024 End: 07-07-2024 ambulatory GÓMEZ YOUNGER [facility] Start: 09-19-2023 End: 09-19-[address] Sommer Flynn Work Phone: [facility] Work Phone: Start: 09-19-2023 End: 09-19-[address] Sommer Flynn Work Phone: [facility]-Ultrasound, [facility] Work Phone: Start: 07-25-2023 End: 07-25-[address] Sommer Flynn Work Phone: [facility] Work Phone: Start: 07-17-2018 End: 07-18-2018 Patient encounter procedure KAREN Colon [facility] Start: 10-29-2017 End: 10-29-2017 Emergency department [...] Start: 02-12-2025 US scan of thyroid Dr. oSmmer Flynn MD Work Phone: Start: 02-05-2025 Serum [...] Comment on above: Thyroglobulin Antibody measured by [employer] CoulterMethodologyIt should be noted that the presence of thyroglobulinantibodies may not be pathogenic nor diagnostic, especiallyat very low levels. The assay elastic attacher coverstitch has found thatfour percent of individuals without [...] the productionof interferon gamma. Chemiluminescence immunoassaymethodologyPerformed at: [facility] [address] [id number] Director: Rodrigo Edmondson PhD, Phone: [phone] Start: 09-19-[address] Sommer Flynn [...] had a prior FNA biopsy given a Landis 5 diagnosis and our final pathology appears [...] for Adults (1 - 1-dose 75+ series) [employer] Start: 2036 Zoster Vaccines (1 of 2) Zoste r Vaccines (1 of 2) [facility] Start: 03-24-2030 DTaP/Tdap/Td Vaccine s (5 - Td or Tdap) DTaP/Tdap/Td Vaccines (5 - Td or Tdap) [facility] Start: 03-24-2030 Urine microalbumin profile [facility] Start: 05-13-2025 Patient discharge [facility] Start: 05-12-2025 Application of intermittent pneumatic compression device [facility] Start: 05-12-2025 Following clinical pathway protocol [facility] Start: 05-12-2025 Application of ice collar, cap or bag [facility] Start: 05-12-2025 Elevation of head of bed [facility] Start: 05-12-2025 Admission procedure [facility] Start: 05-12-2025 Anes esoph thyrd lar ynx trach & lymph neck 1yr ANESTH NECK ORGAN 1YR/> [facility] Start: 05-12-2025 Thyroidectomy total/complete REMOVAL OF THYROID [facility] Start: 04-27-2025 Influenza vaccination Influenza Vacc ine (#1) [facility] Start: 03-30-2025 End: 03-30-2025 Patient encounter procedure 03/30/2025 2:45 PM EDT Office Visit General Surgery [address] [place] [address] Baltazar Courtney MD [address] [place] [place] [address] 2 wk f/u-FNA results General Surgery Comment on above: 2 wk f/u-FNA results Start: 03-16-2025 End: 03-16-2025 Patient encounter procedure 03/16/2025 1:30 PM EDT Office Visit General Surgery [address] [place] [address] Baltazar Courtney MD [address] [place] [address] PROCEDURE: FNA Right thyroid x 2. Consent signed. [facility] General Surgery Comment on above: PROCEDURE: FNA Right thyroid x 2. Consent signed. [facility] Start: 03-09-2025 End: 03-09-2025 Patient encounter procedure 03/09/2025 2:45 PM EDT Office Visit General Surgery [address] [place] [address] Baltazar Courtney MD [address] [place] [address] CONSULT: THYROID NODULE / REFERRAL SCANNED. Images available. [facility] General Surgery Comment on above: CONSULT: THYROID NOD ULE / REFERRAL SCANNED. Images available. [facility] Start: 07-29-2024 End: 07-29-2024 Patient encounter procedure 07/29/2024 3:00 PM EST Office Visit [facility] [place] [address] [place] [id number] Gómez Younger MD [address] [place] [address] [facility] Colorectal Surgery - [place] Start: 04-27-2024 COVID-19 Vaccine ( season) COVID-19 Vaccine ( season) [facility] Start: 04-23-2017 Screening for malign ant neoplasm of cervix Cervical Cancer Screening [facility] Start: 2016 Screening for malign ant neoplasm of cervix [facility] Start: 2007 Screening for malign ant neoplasm of cervix Pap Smear [facility] Start: 2004 Anxiety Screening Anxiety Screening [facility] Start: 2004 Depression Screening Depression Scre ening [facility] Start: 2004 Hepatitis C screening Hepatitis C Sc reening [facility] Start: 1999 Varicella vaccination Varicell a Vaccines (1 of 2 - 13+ 2-dose series) [facility] Start: 1998 Depression Monitoring Depression Mon itoring [facility] Start: 1987 MMR Vaccines (1 of 1 - Standard series) MMR Vaccines (1 of 1 - Standard series) [facility] Start: 1986 HIV screening HIV Screening [facility] Start: 1986 Lipid panel Lipid Panel [facility] 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 Sommer Flynn MD Work Phone: [facility] 06-17-2024 influenza virus vaccine, unspecified formulation Baltazar Courtney MD Work Phone: [facility] 07-12-2021 influenza, injectabl e, quadrivalent, preservative free Dr. Sommer Flynn Work Phone: [facility] 10-12-2020 Covid (Moderna) Dr. Sommer Flynn Work Phone: [facility] 09-14-2020 Covid (Moderna) Dr. Sommer Flynn Work Phone: [facility] 05-25-2020 influenza, injectabl e, quadrivalent, preservative free Dr. Sommer Flynn Work Phone: [facility] 03-24-2020 tetanus toxoid, redu janeen diphtheria toxoid, and acellular pertussis vaccine, adsorbed Dr. Sommer Flynn Work Phone: [facility] 07-09-2019 influenza, injectabl e, quadrivalent, preservative free Dr. Sommer Flynn Work Phone: [facility] 10-22-2014 tetanus toxoid, redu janeen diphtheria toxoid, and acellular pertussis vaccine, adsorbed Yordy Andersen MD Work Phone: [facility] 05-28-2014 hepatitis B vaccine, adult dosage Yordy Andersen MD Work Phone: [facility] 05-28-2014 influenza, injectabl e, quadrivalent, preservative free Yordy Andersen MD Work Phone: [facility] 11-27-2013 hepatitis B vaccine, adult dosage Yordy Andersen MD Work Phone: [facility] 10-27-2013 hepatitis B vaccine, adult dosage Yordy Andersen MD Work Phone: [facility] Work Phone: 10-27-2013 tetanus toxoid, redu janeen diphtheria toxoid, and acellular pertussis vaccine, adsorbed Yordy Andersen MD Work Phone: [facility] Payers Date Payer Category Payer Private Health Insurance [facility] [id number] 2024 Unknown [id number] 2024 Self-pay [id number] 2024 Commercial Managed C are - HMO [id number] 2024 Unknown [id number] 2024 Unknown [id number] 2015 Private Health Insurance 11 Private Health Insurance [id number] Unknown [facility] DO NOT USE 22 [id number] Unknown [id number] 62 Unknown [id number] 2.16.840.1.226762.3.579.2.4 62 Unknown [id number] 2.16.840.1.692826.3.579.2.4 62 Unknown [id number] 2.16.840.1.761718.3.579.2.4 62 Unknown [id number] 2.16.840.1.807304.3.579.2.4 62 Unknown [id number] 2.16.840.1.871514.3.579.2.4 62 Unknown [id number] 2.16.840.1.555821.3.579.2.4 62 Unknown [id number] 2.16.840.1.426696.3.579.2.4 62 Unknown [id number] 2.16.840.1.625463.3.579.2.4 62 Unknown [id number] 2.16.840.1.141642.3.579.2.4 62 Unknown [id number] 2.16.840.1.844574.3.579.2.4 62 Unknown [id number] 2.16.840.1.950713.3.579.2.4 62 Unknown [id number] 2.16.840.1.987818.3.579.2.4 62 Unknown [id number] 2.16.840.1.346904.3.579.2.4 62 Unknown [id number] 2.16.840.1.275818.3.579.2.4 62 Unknown [id number] 2.16.840.1.230718.3.579.2.4 62 Unknown [id number] 2.16.840.1.558195.3.579.2.4 62 Social History Date Type Detail Facility Start: 07-25-2023 Tobacco smoking stat [facility] Unknown if ever smoked [facility] Start: 03-18-2019 None [facility] Start: 03-18-2019 Spouse/ Signif icant Other [facility] Start: 1985 Sex Assigned At Female [facility] Start: 07-07-2024 End: 05-06-2025 Tobacco smoking status NHIS Never smoked tobacco [facility] Start: 04-23-2014 End: 07-07-2024 Tobacco use and exposure Smokeless tobacco non-user [facility] Start: 07-07-2024 End: 03-09-2025 Alcoholic beverage intake Current drinker of alcohol (finding) [facility] Start: 07-07-2024 End: 03-09-2025 History of Social function [facility] Start: 07-07-2024 End: 03-09-2025 Tobacco use panel [facility] Start: 1985 Sex assigned at Not on file [facility] Start: 04-28-2022 Sex Female (finding) [facility] Start: 07-30-2024 End: 03-04-2025 Alcoholic beverage intake Current non-drinker of alcohol (finding) [facility] National Score (1-100), lower number is lower risk 71 [facility] Start: 03-09-2025 Alcohol Comment Socially- meg mated once monthly [facility] Medical Equipment Procedure Code Equipment Code Equipment Original Text Equipment Identifier Dates Thyroidectomy Plant polysaccha ride haemostatic agent, bioabsorbable [id number] FDA Start: 05-12-2025 Thyroidectomy Ligation clip, metallic ( )[id number] FDA Start: 05-12-2025 Goals Date Patient Goal Desired Activity /State Functional Status Date Assessment Result Facility 05-13-2025 Functional status Ambulates [facility] Work Phone: 12-17-2014 Are you deaf, or do you have serious difficulty hearing No 12/17/2014 9:56 AM Leighann Dunn Ma No [facility] 12-17-2014 Are you blind, or do you have serious difficulty seeing, even when wearing glasses No 12/17/2014 9:56 AM Leighann Dunn Ma No [facility] 12-17-2014 Do you have serious difficulty walking or climbing stairs No 12/17/2014 9:56 AM EDT Leighann Delatorre Ma [facility] 12-17-2014 Do you have difficul ty dressing or bathing No 12/17/2014 9:56 AM Leighann Dunn Ma [facility] 12-17-2014 Because of a physica l, mental, or emotional condition, do you have difficulty doing errands alone such as visiting a physician's office or shopping No 12/17/2014 9:56 AM EDT Leighann Delatorre Ma Jennifer [facility] Mental Status Date Assessment Result Facility 05-13-2025 Cognitive function Level Of Cons ciousness Awake [facility] Work Phone: 05-13-2025 Cognitive function Voice/Name [facility] Work Phone: 12-17-2014 Because of a physica l, mental, or emotional condition, do you have serious difficulty concentrating, remembering, or making decisions No 12/17/2014 9:56 AM EDT Leighann Delatorre Ma [facility] Clinical Notes 07-07-2024 to 05-22-2025 Note Date & Type Note Facility 05-22-2025 Progress note [facility] 05-13-2025 Discharge summary [facility] 05-13-2025 Discharge summary [facility] 05-13-2025 Procedure note [facility] 05-13-2025 Discharge summary Note Date/Time May 13, 2025 11:33am [facility] Medical Records Department [address] [place] [address] Discharge Summary 05/13/25 0759 MR#: [id number] Acct: [id number] Name: HAMLET TEIXEIRA Rep # :[id number] : 1985 39 From: Gómez Quick PCP: Dr. Ortega Medrano MD Status:JESUS PLATA Location: MN3 [id number] Providers Date of Admission: 05/12/25 Primary Care [...] Casiano MD General Surgery Endocrine Surgery Pager: [facility] [address] [place] [address] [address] [place] [id number] Office: [phone] Medications at Discharge Home Medications duloxetine 60 [...] Self Care Charges/Coding Visit Charges Inpatient E&M: 01684 Disch Hosp 05/13/25 1133 <Electronically signed by Gómez Casiano MD> Cosigner Signature (if applicable): CC: Dr. Ortega Medrano MD; Dr. Gómez Casiano MD~ Signed [facility] Work Phone: 1(208) 246-400009-17-2025 Discharge summary Author Gómez Casiano [facility] Note Date/Time May 13, 2025 11:32am [facility] Medical Records Department [address] [place] [address] Instructions for Home/Discharge Instructions 05/13/25 0755 MR#: [id number] Acct: [id number] Name: HAMLET TEIXEIRA Rep # :[id number] : 1985 39 From: Gómez Quick PCP: [...] CC: Dr. Ortega Medrano MD ~ Signed [facility] Work Phone: 1(413) 539-750409-17-2025 Progress note Author Gómez Casiano [facility] Note Date/Time May 13, 2025 7:45am [facility] Medical Records Department [address] [place] [address] Progress Note - Surgery 05/13/25 0742 MR#: [id number] Acct: [id number] Name: HAMLET TEIXEIRA Rep # :[id number] : 1985 39 From: Gómez Quick PCP: Dr. Ortega Medrano MD Status:AD [facility] Location: [place] [address] Subjective Subjective Patient doing well this morning. [...] she returns home. Will also advance to [employer]. Discussed outpatient wound care and follow-up instructions. Patient denies any further questions. Provided the above implemented care plan items proceed without complication will plan for discharge later today. Gómez Caisano MD General Surgery Endocrine Surgery Pager: [facility] [address] [place] [address] [place], [place] [id number] Office: [phone] Charges/Coding Visit Charges Inpatient E&M: 15750 Subs Hosp L1 05/13/25 0745 <Electronically signed by Gómez Casiano MD> Cosigner Signature (if applicable): CC: ~ Signed [facility] Work Phone: 1(424) 284-792009-17-2025 [facility] Medical Records Department [address] [place] [address] Discharge Summary 05/13/25 0759 MR#: [id number] Acct: [id number] Name: HAMLET TEIXEIRA Rep #: [id number] : 1985 39 From: Gómez Casiano MD PCP: Dr. Ortega Medrano MD Status:ADM BONI Location: [facility] [id number] Providers Date of Admission: 05/12/25 Primary Care [...] Casiano MD General Surgery Endocrine Surgery Pager: [facility] [address] [place] [address], [address] [place] [address] Office: [phone] Medications at Discharge Home Medications duloxetine 60 [...] [Vitamin D3] 5 (more content not included)... [facility]09-17-2025 Progress note [facility] Medical Records Department [address] [place] [address] Progress Note - Surgery 05/13/25 0742 MR#: [id number] Acct: [id number] Name: HAMLET TEIXEIRA Rep # :[id number] : 1985 39 From: Gómez Quick PCP: Dr. Ortega Medrano MD Status:AD M [facility] Location: [facility] [id number] Subjective Subjective Patient doing well this morning. [...] Casiano MD General Surgery Endocrine Surgery Pager: [facility] [address] [place] [address], [address] [place] [address] Office: [phone] Charges/Coding Visit Charges Inpatient E&M: 71228 Subs Hosp L1 05/13/25 7960 Cosigner Signature (if applicable): CC: ~ Signed [facility]09-16-2025 Consult note Author Leighton Copeland [facility] Note Date/Time May 12, 2025 5:21pm [facility] Medical Records Department [address] [place] [address] Anesthesia Postop Eval II 05/12/25 0554 MR#: [id number] Acct: [id number] Name: HAMLET ETIXEIRA Rep # :[id number] : 1985 39 From: Leighton Copeland MD PCP: Dr. Ortega Medrano MD Status:AD M BONI Y Race: C Location: [place] [address] Anesthesia Postop Eval I Sum Postop Eval Completion status Anesthesia document: Postop Eval 1 completed: Yes Anesthesia Postop Eval I Summary Anesthesia Postop Eval I Summary: Anesthesia Postop Eval I: Assessment Summary Airway patent Yes 05/12/25 15:10 [employer].GDOTT Spontaneous unlabored Yes 05/12/25 15:10 [employer]GDOTT respirations Mental status Awake,Calm 05/12/25 15:10 [employer]GDOTT nausea No 05/12/25 15:10 [employer]GDOTT Vomiting No 05/12/25 15:10 SALES ASSIST[employer].GDOTT Anesthesia Postop Eval I: Fluid Summary Crystalloid volume administer 1,400 05/12/25 15:10 SALES ASSISTANT ENTERTAINMENT AND MEDIA.GDOTT (ml) Colloids volume administered ( ml) Blood Product volume administered (ml) Total IV fluid infused 1,400 05/12/25 15:10 SALES ASSISTANT ENTERTAINMENT AND MEDIA.GDOTT Anesthesia Postop Eval I: Summary Notes Anesthesia Complication No 05/12/25 15:10 SALES ASSISTANT ENTERTAINMENT AND MEDIA.GDOTT Anesthesia Complication Comment: Post-operative progress note Anesthesia: [...] MD Cosigner Signature: Date CC: ~ Signed [facility] Work Phone: 1(872) 220-698109-16-2025 Consult note [facility] Medical Records Department [address] [place] [address] Anesthesia Postop Eval II 05/12/25 1709 MR#: [id number] Acct: [id number] Name: HAMLET TEIXEIRA Rep # :[id number] : 1985 39 From: Leighton Copeland MD PCP: Dr. Ortega Medrano MD Status:AD M BONI Y Race: C Location: [place] [id number] -1 Anesthesia Postop Eval I Sum Postop Eval Completion status Anesthesia document: Postop Eval 1 completed: Yes Anesthesia Postop Eval I Summary Anesthesia Postop Eval I Summary: Anesthesia Postop Eval I: Assessment Summary Airway patent Yes 05/12/25 15:10 SALES ASSISTANT ENTERTAINMENT AND MEDIA.GDOTT Spontaneous unlabored Yes 05/12/25 15:10 SALES ASSISTANT ENTERTAINMENT AND MEDIA.GDOTT respirations Mental status Awake,Calm 05/12/25 15:10 SALES ASSISTANT ENTERTAINMENT AND MEDIA.GDOTT nausea No 05/12/25 15:10 SALES ASSISTANT ENTERTAINMENT AND MEDIA.GDOTT Vomiting No 05/12/25 15:10 SALES ASSISTANT ENTERTAINMENT AND MEDIA.GDOTT Anesthesia Postop Eval I: Fluid Summary Crystalloid volume administer 1,400 05/12/25 15:10 SALES ASSISTANT ENTERTAINMENT AND MEDIA.GDOTT (ml) Colloids volume administered ( ml) Blood Product volume administered (ml) Total IV fluid infused 1,400 05/12/25 15:10 SALES ASSISTANT ENTERTAINMENT AND MEDIA.GDOTT Anesthesia Postop Eval I: Summary Notes Anesthesia Complication No 05/12/25 15:10 SALES ASSISTANT ENTERTAINMENT AND MEDIA.GDOTT Anesthesia Complication Comment: Post-operative progress note Anesthesia: [...] Leighton Maldonado Signature: Date CC: ~ Signed [facility]09-16-2025 Consult note Author Estella Henry [facility] Note Date/Time May 12, 2025 3:10pm [facility] Medical Records Department [address] [place] [address] Anesthesia Postop Eval I 05/12/25 1508 MR#: [id number] Acct: [id number] Name: HAMLET TEIXEIRA Rep # :[id number] : 1985 39 From: Estella MONTANO PCP: Dr. Ortega Medrano MD Status:[facility] Y Race: C Location: [place] [address] Anesthesia: Postop Eval I Current Vital Signs [...] Estella Maldonado Signature: Date CC: ~ Signed [facility] Work Phone: 1(483) 810-394909-16-2025 Consult note [facility] Medical Records Department [address] [place] [address] Anesthesia Postop Eval I 05/12/25 1508 MR#: [id number] Acct: [id number] Name: HAMLET TEIXEIRA Rep # :[id number] : 1985 39 From: Estella MONTANO PCP: Dr. Ortega Medrano MD Status:[facility] Y Race: C Location: [place] [address] Anesthesia: Postop Eval I Current Vital Signs [...] Postop Eval 1 completed: Yes 05/12/25 1510 SALES ASSISTANT ENTERTAINMENT AND MEDIA> Date _ Estella Henry SALES ASSISTANT ENTERTAINMENT AND MEDIA Cosigner Signature: Date CC: ~ Signed [facility]09-16-2025 History and physical note Author Gómez Casiano [facility] Note Date/Time May 12, 2025 11:00am [facility] Medical Records Department [address] [place] [address] History & Physical Exam 05/12/25 1058 MR#: [id number] Acct: [id number] Name: HAMLTE TEIXEIRA Rep # :[id number] : 1985 39 From: Gómez Quick PCP: Dr. Ortega Medrano MD [place] [facility] [place] [address] History and Physical Date of Admission: 05/12/25 Date of Service: 04/17/25 MR#: [id number] Acct: [id number] Name: HAMLET TEIXEIRA Rep #: [id number] : 1985 Provider: Dr. 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 The latter [...] would appear patient has a 2.2 cm Landis 5 nodule suspicious forunifocal PTC. I held a lengthy conversation today with Mrs. Teixeira regarding her surgical options. I suggested that [place] thyroid Association would generally recommend thyroid lobectomy [...] should be able aline managed here in [place]. Lastly, I described the implications for risk [...] Medrano MD; Dr. Gómez Casiano MD~ Signed [facility] Work Phone: 1(203) 397-918909-16-2025 Consult note Author Leighton Copeland [facility] Note Date/Time May 12, 2025 10:32am [facility] Medical Records Department [address] [place] [address] Pre-Anesthesia Evaluation 05/12/25 1018 MR#: [id number] Acct: [id number] Name: HAMLET TEIXEIRA Rep # :[id number] : 1985 39 From: Leighton Copeland MD PCP: Dr. Ortega Medrano MD Status[place]RE G [facility] [place] Race: C Location: [place] [address] ASA Classification* ASA Classification ASA Classification: 2 [...] 12.9 SECONDS (11.7-14.9) 04/02/20 11:05 HCG, Quant 98314 mIU/mL (1-3) H 10/27/19 15:35 10/27/19 Pre-Assessment Diagnosis/Proposed Procedure Planned Operative Procedure(s): TOTAL THYROIDECTOMY Anesthesia History Anesthesia History - sustainability consultant: Anesthesia History - sustainability consultant Hx Hospitalization No 05/06/25 10:07 Any Problems [...] take am of surgery PONV PONV - sustainability consultant: PONV - sustainability consultant Female Yes 05/06/25 10:07 HX of Motion [...] 05/12/25 09:53 Respiratory Assessment Respiratory Assessment - sustainability consultant: Respiratory Tract Infection Hx - sustainability consultant Hx Respiratory Tract Infection No 05/06/25 10:07 STOP Sleep Apnea STOP Sleep Apnea - sustainability consultant: STOP Sleep Apnea - sustainability consultant Hx Hypertension No 05/06/25 10:07 Hx Sleep [...] Tobacco Use History Tobacco Use History - sustainability consultant: Tobacco Use History - sustainability consultant Tobacco Use Smoking Status Never smoker 05/06/25 10:07 Hx Tobacco Use No 05/06/25 10:07 Years Smoking Packs Smoked per Day Smoking Cessation Date was within the last 15 years Hx Smoking Cessation Date Hx Smoking Cessation Counseling Hematologic Medial History Hematologic Hx - sustainability consultant: 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 Hx of Blood Transfusion No 05/06/25 10:07 [...] confused, unrespo /Reproduction History /Reproductive History - sustainability consultant: /Reproductive Hx- sustainability consultant Hx Now No 05/06/25 10:07 Gestational Age [...] current occupational status: employed 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 Ortega Medrano MD Status:[facility] Location: [place] [address] History and Physical Date of Admission: 05/12/25 Date of Service: 04/17/25 MR#: [id number] Acct: [id number] Name: YENIHAMLET TAPIARICIA Rep #: [id number] : 1985 Provider: Dr. 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 The latter [...] would appear patient has a 2.2 cm Landis 5 nodule suspicious forunifocal PTC. I held a lengthy conversation today with regarding her surgical options. I suggested that [place] thyroid Association would generally recommend thyroid lobectomy [...] should be able aline managed here in [place]. Lastly, I described the implications for risk [...] Medrano MD; Dr. Gómez Casiano MD~ Signed [facility]09-16-2025 [facility] Medical Records Department [address] [place] [address] History Physical Exam 05/12/25 1058 MR#: [id number] Acct: [id number] Name: HAMLET TEIXEIRA Rep #: [id number] : 1985 39 From: Gómez Casiano MD PCP: Dr. Ortega Medrano MD Status:[facility] Location: [place] [address] History and Physical Date of Admission: 05/12/25 Date of Service: 04/17/25 MR#: [id number] Acct: [id number] Name: HAMLET TEIXEIRA Rep #: [id number] : 1985 Provider: Dr. 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 The latter [...] ROS General General: Y (more content not included)...[facility]09-16-2025 Consult note [facility] Medical Records Department [address] [place] [address] Pre-Anesthesia Evaluation 05/12/25 1018 MR#: [id number] Acct: [id number] Name: HAMLET TEIXEIRA Rep # :[id number] : 1985 39 From: Leighton Copeland MD PCP: Dr. Ortega Medrano MD Status:RE G [facility] Y Race: C Location: [place] [address] ASA Classification* ASA Classification ASA Classification: 2 [...] 12.9 SECONDS (11.7-14.9) 04/02/20 11:05 HCG, Quant 90738 mIU/mL (1-3) H 10/27/19 15:35 10/27/19 Pre-Assessment Diagnosis/Proposed Procedure Planned Operative Procedure(s): TOTAL THYROIDECTOMY Anesthesia History Anesthesia History - sustainability consultant: Anesthesia History - sustainability consultant Hx Hospitalization No 05/06/25 10:07 Any Problems [...] take am of surgery PONV PONV - sustainability consultant: PONV - sustainability consultant Female Yes 05/06/25 10:07 HX of Motion [...] 05/12/25 09:53 Respiratory Assessment Respiratory Assessment - sustainability consultant: Respiratory Tract Infection Hx - sustainability consultant Hx Respiratory Tract Infection No 05/06/25 10:07 STOP Sleep Apnea STOP Sleep Apnea - sustainability consultant: STOP Sleep Apnea - sustainability consultant Hx Hypertension No 05/06/25 10:07 Hx Sleep [...] Tobacco Use History Tobacco Use History - sustainability consultant: Tobacco Use History - sustainability consultant Tobacco Use Smoking Status Never smoker 05/06/25 10:07 Hx Tobacco Use No 05/06/25 10:07 Years Smoking Packs Smoked per Day Smoking Cessation Date was within the last 15 years Hx Smoking Cessation Date Hx Smoking Cessation Counseling Hematologic Medial History Hematologic Hx - sustainability consultant: 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 Hx of Blood Transfusion No 05/06/25 10:07 [...] confused, unrespo /Reproduction History /Reproductive History - sustainability consultant: /Reproductive Hx- sustainability consultant Hx Now No 05/06/25 10:07 Gestational Age [...] current occupational status: employed 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 Ortega Medrano MD Status: RE G CLI Study:Head/Neck Soft Tissue Date of Exam: 04/23/25 Exam# [id number] Ordering Dr: Gillian Casiano MD ADDENDUM by Dr. Ian Cox MD on 04/28/25 at 1320 The lymph node as a normal appearing fatty hilum and good cortical thickness. This suggests benignity. Reading Location: [facility] 04/28/25 1321 Date cc: Dr. Ortega Medrano [...] right side of the neck. Reading Location: [id number] CC: Dr. Ortega Medrano MD; Dr. Gómez Casiano MD ~ Relief Pilot: Signed [facility]08-22-2025 Evaluation note* Diagnosis Onset Date Resolution Status Admit Date Multiple thyroid nodules acute April 17, 2025 9:12am [facility] Work Phone: 1(575) 790-458108-22-2025 Evaluation note* Diagnosis Onset Date Resolution Status Admit Date Multiple thyroid nodules acute April 17, 2025 9:12am Status post total thyroidectomy acute May 12, 2025 2:52pm [facility] Work Phone: 1(496) 622-827808-22-2025 Evaluation note* Diagnosis Onset Date Resolution Status Admit Date Multiple thyroid nodules acute April 17, 2025 9:12am Status post total thyroidectomy acute May 12, 2025 2:52pm Status post total thyroidectomy acute May 22, 2025 8:01am [facility] Work Phone: 1(189) 800-775307-21-2025 Note* Addendum Note - Amirah Nice RN - 03/16/2025 2:03 PM EDTAddended by: AMIRAH NICE on: 03/16/2025 02:03 PM Modules accepted: Orders [facility]07-21-2025 Miscellaneous Notes* Addendum Note - Amirah Nice RN - 03/16/2025 2:03 PM EDTAddended by: AMIRAH NICE on: 03/16/2025 02:03 PM Modules accepted: Orders * Addendum Note - Amirah Nice RN - 03/16/2025 2:01 PM EDTAddended by: AMIRAH NICE on: 03/16/2025 02:01 PM Modules accepted: Orders documented in [facility] Note* Addendum Note - Amirah Nice RN - 03/16/2025 2:01 PM EDTAddended by: AMIRAH NICE on: 03/16/2025 02:01 PM Modules accepted: Orders [facility]07-21-2025 NoteHNO ID: [id number] Author: BALTAZAR COURTNEY MD Service: ? Author [...] applied and the patient tolerated the procedure well.[facility]07-21-2025 History of Present illness Narrative* Baltazar [...] tolerated the procedure well. documented in this encounterOhio[facility]07-[facility]-2025 Instructions* Patient Instructions* Amirah Nice RN - 03/16/2025 1:44 PM EDT The following instructions are important for you related to your office visit today with the [facility] General Surgeons. Instructions After THYROID FINE [...] you have any questions or concerns @ [phone]. Please make an appointment to follow up in one week with your physician and thank you for choosing the [facility] [place]. If you note any additional difficulties, questions, or concerns, you should contact our office immediately @ [phone] and ask to be transferred to the General Surgery department. documented in this encounterOhio[facility]07-[facility]-2025 NoteHNO ID: [id number] Author: AMIRAH NICE RN Service: ? Author [...] has been communicated to the patient or surrogate.[facility]07-21-2025 Procedure note* Amirah Nice RN - [...] been communicated to the patient or surrogate. [facility]07-21-2025 Procedure note* Amirah Nice RN - [...] the patient or surrogate. documented in this encounterOhio[facility]07-18-2025 NoteHNO ID: [id number] Author: BALTAZAR COURTNEY MD Service: ? Author [...] risk. - Patient to schedule FNA with javascript front end developer; procedures performed on Mondays and Tuesdays. Diagnoses: (E04.2) Multinodular goiter (primary encounter diagnosis) A letter was sent to Dr. Ortega Medrano MD, MD indicating the above finding for this patient. Return to Clinic: The patient is instructed to follow-up with me 1 week post operatively. (more content not included)...[facility]07-18-2025 History of Present illness Narrative* Baltazar [...] risk. - Patient to schedule FNA with javascript front end developer; procedures performed on Mondays and Tuesdays. Diagnoses: (E04.2) Multinodular goiter (primary encounter diagnosis) A letter was sent to Dr. Ortega Medrano MD, MD indicating the above finding for this patient. Return to Clinic: The patient is instructed to follow-up with me 1 week post operatively. Baltazar Courtney III, MD * Yelitza Whitlock, CONDUIT MECHANIC - 03/09/2025 2:19 PM EDT REVIEW OF [...] N/A Yelitza Whitlock LPN documented in this encounterOhio[facility]07-14-2025 NoteHNO ID: [id number] Author: YELITZA WHITLOCK LPN Service: ? Author [...] screening? N/A Last Colonoscopy: N/A Yelitza Whitlock [facility]06-19-2025 Radiology Diagnostic study note [facility] Imaging Services [address] [place] [address] Thyroid MR#: [id number] Acct: [id number] Name: HAMLET TEIXEIRA Rep #: [id number] : 1985 F 39 From: Pet er Peer DO PCP: Dr. Ortega Medrano MD Status: RE G CLI Study:Thyroid Date of Exam: 02/12/25 Exam# [id number] Ordering Dr: Ortega Medrano MD PROCEDURE: THYROID [...] no more than 2 nodules. Reading [facility] CC: Dr. Ortega Medrano MD ~ Relief Pilot: Signed [facility]12-04-2024 NoteHNO ID: [id number] Author: YORDY ANDERSEN MD Service: ? Author [...] MG-POTASSIUM CLAVULANATE 125 MG TABLET Yordy Andersen [facility]12-04-2024 History of Present illness Narrative* [...] TABLET Yordy Andersen MD documented in this encounterOhio[facility]12-03-2024 History of Present illness Narrative* Gómez [...] Review of Systems as recordedby the medical i d sales has been reviewed by me, and I [...] 07/29/2024 at 3:29 PM. documented in this [facility]12-03-2024 Instructions* Patient Instructions* Maryana Spivey - 07/29/2024 3:00 PM EST -Healed well. documented in this [facility]11-11-2024 History of Present illness Narrative* Gómez [...] Review of Systems as recordedby the medical i d sales has been reviewed by me, and I [...] 07/07/2024 at 2:51 PM. documented in this [facility]SCommunity [facility] CenterEvaluation [facility]* Diagnosis Onset Date Resolution Status Acne acute DVT (deep venous thrombosis) acute Menorrhagia with regular cycle acute Encounter for routine gynecological examination noneactive [facility] Work Phone: Evaluation note* Diagnosis Perianal abscess- Primary Abscess of anal and rectal regions documented in this encounter [facility] [place] [facility]* Diagnosis Perianal abscess- Primary Abscess of anal and rectal regions documented in this encounter [facility]* Diagnosis Acute non-recurrent sinusitis, unspecified location- Primary documented in this encounter [facility] [place] noteNo assessment information availableWCrystal Clinic Orthopedic Center Work Phone: Evaluation note* Diagnosis Multinodular goiter- Primary Nontoxic multinodular goiter documented in this encounter [facility]* Diagnosis Multinodular goiter- Primary Nontoxic multinodular goiter documented in this encounter [facility] note Author Gómez Casiano [facility] Note Date/Time May 22, 2025 8:22am [facility] [address] [place] [address] OFFICE VISIT Date of Service: 05/22/25 MR#: [id number] Acct: [id number] Name: HAMLET TEIXEIRA p #: [id number] : 1985 Provider: Dr. 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 Ortega Medrano MD ~ [facility] Work Phone: Reason for referral (narrative)No reason for referral information availableWCrystal Clinic Orthopedic Center Work Phone: Reason for visit Narrative* Consult, Test, Treat (Routine) - Closed Specialty Diagnoses / Procedures Referred By Contjazmin t Referred To Contact General Surgery / GENERAL SURGERY Diagnoses Thyroid nodule fna right thyroid x2 30min Procedures FINE NEEDLE ASPIRATION BX W/O IMG GDN 1ST LESION FINE NEEDLE ASPIRATION BX W/O IMG GDN EA ADDL SURGERY 30 Baltazar Courtney MD [address] [place] [address] Phone: tel: fax: Baltazar Courtney MD [address] [place] [place] [address] Phone: tel: fax: Referral ID Status Reason Start Date Expiration Date Visits Re quested Visits Authorized [id number] Closed 03/12/2025 08/26/2025 1 1 [facility] Summary Purpose Family History No Family History Records Found Relationship Condition Age at Onset Recorded Date/T leo grandmother Malignant neoplasm of breast Unknown father Hypertension Unknown Diabetes mellitus Unknown mother Hypertension Unknown Advance Directives No Advanced Directives Records Found Advance Directive Response Recorded Date/ Time Living Will No May 07, 2021 7:56pm Power of Commercial Roofer No April 7:56pm Advance Directive Response Recorded Date/ Time Do you have a Healthcare Power of Commercial Roofer? 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 November 15, 2024 8:4 4am Chief Complaint Admit Date 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 ua 2024 10:22am EMPLOYEE [...] AUTHOR AUTHOR'S ORGANIZ ATION 08/05/2018 [facility] DATE CREATED AUTHOR AUTHOR'S ORGANIZ ATION 08/05/2018 [facility] DATE CREATED AUTHOR AUTHOR'S ORGANIZ ATION 03/21/2019 [facility] Ce ramesh Perez DATE CREATED AUTHOR AUTHOR'S ORGANIZ ATION 07/31/2024 [facility] DATE CREATED AUTHOR AUTHOR'S ORGANIZ ATION 05/30/2025 [facility] DATE CREATED AUTHOR AUTHOR'S ORGANIZ ATION 06/19/2025 [facility] DATE CREATED AUTHOR AUTHOR'S ORGANIZ ATION 06/25/2025 [facility] Care Teams (unrecognized sec tion and content) Team Status: Active Member Role Status Dates SOMMER FLYNN Family Provider Active Dr. Sommer Flynn MD Primary Care Provider Active Team Status: Inactive Member Role Status Dates Dr. Sommer Flynn MD Referring Provider Active Michell Woodard SENIOR SUSTAINABILITY ADVISOR, SENIOR SUSTAINABILITY ADVISOR-C Attending Provider Active Team Status: Inactive Member Role Status Dates Michell Woodard SENIOR SUSTAINABILITY ADVISOR, SENIOR SUSTAINABILITY ADVISOR-C Attending Provider, Referring Provider Active Dr. Sommer Flynn MD Primary Care Provider Active Computer Forensics Analyst Relationship Specialty Start Date End Date Sommer Flynn MD [address] [place] [address] PCP - General Family Medicine 07/07/24 Computer Forensics Analyst Relationship Specialty Start Date End Date Sommer Flynn MD [address] [place] [id number] PCP - General Family Medicine 07/07/24 Computer Forensics Analyst Relationship Specialty Start Date End Date Sommer Flynn MD [address] [place] [id number] PCP - General Family Medicine 07/30/24 Team [...] February 12, 2025 End: February 12, 2025 Computer Forensics Analyst Relationship Specialty Start Date End Date Sommer Flynn MD PCP - General Family Medicine 07/30/24 Computer Forensics Analyst Relationship Specialty Start Date End Date Ortega Medrano MD [address] [facility] [address] [place], [place] [phone] PCP - General Family Medicine 03/09/25 Computer Forensics Analyst Relationship Specialty Start Date End Date Ortega Medrano MD [address] [facility] [address] [place] [address] [phone] (work) PCP - General Family Medicine 03/09/25 [...] or prosecute any alcohol or drug abuse patient.[facility] HospitalIn the event this information is protected by the Federal Confidentiality of Alcohol and Drug Abuse Patient Records regulations: The Federal rules restrict any use of the information to criminally investigate or prosecute any alcohol or drug abuse patient.[facility] the event this information is protected by the Federal Confidentiality of Alcohol and Drug Abuse Patient Records regulations: The Federal rules restrict any use of the information to criminally investigate or prosecute any alcohol or drug abuse patient.[facility] the event this information is protected by the Federal Confidentiality of Alcohol and Drug Abuse Patient Records regulations: The Federal rules restrict any use of the information to criminally investigate or prosecute any alcohol or drug abuse patient.[facility] FOR RECORDS PERTAINING TO PATIENTS WHO [...] BE BASED ON THE PRIMARY CLINICAL RECORDS. [employer] [facility]. provides no warranty or guarantee of the accuracy or completeness of information in this document.
[2025-08-26 10:16] LABS: Hematocrit 39.6 % (37-47); Hemoglobin 13.2 g/dL (12.0-15.0); Immature Granulocytes Count 0.040 X10^3/uL (0.0-0.0); Mean Corp Hgb Conc 33.3 g/dL (32-36); Mean Corpuscular Volume 88.4 fL (81-99); Mean Platelet Vol. 8.8 fl (6.2-12.0); NRBC Flagged by Analyzer 0 % (0-5); Platelet Count 388 K/mm3 (150-450); RBC Distribution Width CV 12.5 % (11.6-14.6); RBC Distribution Width SD 40.5 fl (35.1-43.9); Red Blood Count 4.48 M/mm3 (4.2-5.4); White Blood Count 10.7 K/mm3 (4.4-11.0)
[2025-08-26 10:56] LABS: AST(SGOT) 14 U/L (<=31); Alanine Aminotransfer ALT/SGPT 11 U/L (<=34); Albumin, Serum 4.1 g/dL (3.5-5.0); Alkaline Phosphatase 72 U/L (35-104); Anion Gap 8 (7-18); BUN 11 mg/dL (4-19); BUN/Creat Ratio 13.1 RATIO (10-20); Calcium,Total 9.2 mg/dL (7.6-11.0); Carbon Dioxide 24.9 mmol/L (20.0-29.0); Chloride 105 mmol/L (96-106); Globulin 2.9 g/dL (2.2-4.2); Glucose 94 mg/dL (70-99); Potassium 4.1 mmol/L (3.5-5.1); T4 Total, Thyroxin 9.3 ug/dL (4.8-13.9); Vitamin D,25 Hydroxy 32.1 ng/mL (30-100)
== END | disposition home or self-care (01) ==
LOC: MTLAB 07:38
PROVIDERS: PCP Family Medicine; Referring Provider Family Medicine; Visit Provider Family Medicine
DX: E89.0 Postprocedural hypothyroidism (principal); R53.83 Other fatigue; E55.9 Vitamin D deficiency, unspecified
CPT/HCPCS: 36415; 80053; 82306; 84436; 84443; 85025